=== PATIENT | female | born 1930 | race Hispanic/Latino ===

== ENCOUNTER 2017-01-20 13:49 | Inpatient (IN) | payer MEDICARE, MEDICAID ==
--- NOTE | 2017-01-20 14:44 | ED PDOC ---
HPI:STROKE - Time Time: 14:25 - Historian Historian: Patient, Family (daughter/ homemaker), EMS - Onset Date: 01/20/17 Time: 11:00 - Timing Timing: Resolved - Location Location: Speech - Exacerbated by Exacerbated by:: Nothing - Relieved by Relieved by:: Nothing - TPA Positive for Contraindication: Yes Reason tPA is not being Administered: resolution of symptoms - Notes: Notes:: 86yo female arrives via EMS, per EMS homemaker called 911 when patient had some difficulty speaking around 11am, and states had general feelings of being unwell. They deny facial droop, unilateral weakness, fall, syncope, vomiting, diarrhea or fever. In ED awake, alert without complaints. NIHSS Stroke Scale - Date/Time Evaluation Performed Date Performed: 01/20/17 Time Performed: 14:01 When Was NIHSS Performed: Baseline - How Severe is the Stroke Level of Consciousness: 0=Alert LOC to Questions: 0=Both comments correct LOC to commands: 0=Obeys both correctly Best Gaze: 0=Normal Visual: 0=No visual loss Facial: 0=Normal Motor Arm - Left: 0=No drift Motor Arm - Right: 0=No drift Motor Leg - Left: 0=No drift Motor Leg - Right: 0=No drift Limb Ataxia: 1=Present Upper or Lower Sensory: 0=Normal Best Language: 0=No aphasia Dysarthia: 1=Mild to moderate slurring Extinction & Inattention (Neglect): 0=Normal, no object Score: 2 rTPA Inclusion/Exclusion - Refusal of Treatment Patient Refused Treatment: No - Inclusion Criteria for Altepase Patient is 18 years or Older: Yes The Clinical Diagnosis of Ischemic Stroke That is Causing a Potentially Disabling Neurological Deficit: Yes Time of Onset is Well Established to be Less Than 270 Minute Before Treatment Would Begin: No Risk/Benefit Discussed With Patient/Family Member Present: Yes - Exclusion Criteria for Altepase Uncontrolled Hypertension at Time of Treatment (Systolic BP above 185 or Diastolic BP above 110 mmHg): No - Warning to TPA With Conditions Following Conditions Weighed Against Anticipated Benefit: Yes Condition: Stroke Serevity Too Mild Past Medical History Reviewed: Historical Data, Nursing Documentation, Vital Signs Vital Signs: Last Vital Signs Temp 98.7 F 01/20/17 13:51 Pulse 84 01/20/17 13:51 Resp 18 01/20/17 13:51 BP 166/95 H 01/20/17 13:51 Pulse Ox 99 01/20/17 13:51 - Medical History PMH: Anxiety, Asthma, CAD, CHF, Depression, HTN, Hypercholesterolemia - Family History Family History: States: Unknown Family Hx - Living Arrangements Living Arrangements: With Family - Social History Current smoker - smoking cessation education provided: No - Home Medications Home Medications: Ambulatory Orders Medication Instructions Recorded Alendronate [Fosamax] 70 mg PO QWK 01/20/17 Carvedilol [Coreg] 3.125 mg PO Q12H 01/20/17 Docusate [Colace] 100 mg PO BID 01/20/17 Enalapril Maleate [Vasotec] 20 mg PO DAILY 01/20/17 Ferrous Sulfate [Ferosul] 325 mg PO TID 01/20/17 LORazepam [Ativan] 0.5 mg PO DAILY 01/20/17 Montelukast [Singulair] 10 mg PO DAILY 01/20/17 Multivitamin [Multi-Vitamin Daily] 1 tab PO DAILY 01/20/17 Omeprazole [Omeprazole] 20 mg PO BID 01/20/17 PARoxetine [Paxil] 20 mg PO DAILY 01/20/17 Simethicone [Mylicon Chew Tab] 80 mg PO TID 01/20/17 metFORMIN [glucOPHAGE] 500 mg PO BID 01/20/17 - Allergies Allergies/Adverse Reactions: Allergies Allergy/AdvReac Type Severity Reaction Status Date / Time No Known Allergies Allergy Verified 01/16/15 03:07 Review of Systems ROS Statement: Except As Marked, All Systems Reviewed And Found Negative Constitutional: Positive for: Weakness. Negative for: Fever, Chills Cardiovascular: Positive for: Light Headedness. Negative for: Chest Pain, Palpitations Gastrointestinal: Negative for: Nausea, Vomiting Genitourinary Female: Negative for: Dysuria, Frequency Musculoskeletal: Negative for: Neck Pain, Shoulder Pain Skin: Negative for: Rash, Lesions, Jaundice Neurological: Positive for: Headache, Dizziness. Negative for: Weakness, Numbness Psych: Positive for: Anxiety Physical Exam - Reviewed Nursing Documentation Reviewed: Yes Vital Signs Reviewed: Yes - Physical Exam Appears: Positive for: Non-toxic (awake, alert, communicative w periods confusion'), No Acute Distress Head Exam: Positive for: ATRAUMATIC, NORMAL INSPECTION, NORMOCEPHALIC Skin: Positive for: Normal Color, Warm, DRY Eye Exam: Positive for: EOMI, Normal appearance, PERRL ENT: Positive for: Normal ENT Inspection, Other (poor dentition) Neck: Positive for: Normal, Painless ROM, Trachea Midline Cardiovascular/Chest: Positive for: Regular Rate, Rhythm Respiratory: Positive for: CNT, Normal Breath Sounds Gastrointestinal/Abdominal: Positive for: Bowel Sounds, Soft. Negative for: Tenderness, Guarding Back: Positive for: Normal Inspection Extremity: Positive for: Normal ROM Neurologic/Psych: Positive for: Alert, level vial sealer II-XII, Oriented, Other (strength 5/ 5 all ext. Speech fluent with mild dysarthria- unclear if new. ). Negative for : Motor/Sensory Deficits - Laboratory Results Result Diagrams: 01/20/17 14:35 01/20/17 14:35 - ECG O2 Sat by Pulse Oximetry: 99 Medical Decision Making Medical Decision Making: Unclear etiology of symptoms as patient and homemaker are poor historians. PMD Dr Patel Workup for cerebral ischemia initiated. Not code-stroke candidate as symptoms resolved prior to hospital presentation and unclear if symptoms were cerebral ischemia given poor historical context. Disposition - Clinical Impression Clinical Impression: TIA (transient ischemic attack) - Patient ED Disposition Is Patient to be Admitted: Yes - Disposition Disposition Time: 15:45 Condition: FAIR - Pt Status Changed To: Hospital Disposition Of: Observation - POA Present On Arrival: None
[2017-01-20 15:02] LABS: BASO # 0.1 K/uL (0.0-0.2); BASO % 0.7 % (0.0-2.0); EOS # 0.2 K/uL (0.0-0.7); EOS % 2.4 % (0.0-4.0); HEMOGLOBIN 13.8 g/dL (12.0-16.0); LYMPH # 2.1 K/uL (1.0-4.3); LYMPH % 23.5 % (20.0-40.0); MEAN CELL VOLUME 95.9 fl (81.0-99.0); MEAN CORPUSCULAR HEMOGLOBIN 32.6 pg (27.0-31.0); MEAN PLATELET VOLUME 7.9 fl (7.2-11.7); MONO # 0.5 K/uL (0.0-0.8); MONO % 5.2 % (0.0-10.0); NEUT % 68.2 % (50.0-75.0); RBC 4.23 Mil/uL (3.80-5.20); RED CELL DISTRIBUTION WIDTH 14.6 % (11.5-14.5); WHITE BLOOD COUNT 8.8 K/uL (4.8-10.8)
[2017-01-20 15:10] LABS: ALB/GLOB RATIO 1.3 (1.0-2.1); ALBUMIN 4.5 g/dL (3.5-5.0); ALT/SGPT 33 U/L (9-52); AST/SGOT 40 U/L (14-36); BLOOD UREA NITROGEN 17 mg/dl (7-17); CALCIUM 9.6 mg/dL (8.4-10.2); GFR AFRICAN-AMERICAN > 60; GFR NON-AFRICAN AMERICAN > 60; HDL CHOLESTEROL 48 MG/DL (30-70)
[2017-01-20 15:21] LABS: LDL CHOLESTEROL 130 mg/dL (0-129)
[2017-01-20 15:28] LABS: INR 0.9 (0.9-1.2); PARTIAL THROMBOPLASTIN TIME 40.4 Seconds (25.6-37.1); PROTHROMBIN TIME 10.6 Seconds (9.8-13.1)
[2017-01-20 15:56] LABS: SQUAMOUS EPITHIAL 1 /hpf (0-5); URINE BILIRUBIN NEGATIVE (NEGATIVE); URINE BLOOD NEGATIVE (NEGATIVE); URINE CLARITY CLEAR (Clear); URINE COLOR YELLOW (YELLOW); URINE GLUCOSE (UA) NEG (Normal); URINE LEUKOCYTE ESTERASE SMALL Leu/uL (Negative); URINE NITRATE NEGATIVE (NEGATIVE); URINE PROTEIN NEGATIVE (NEGATIVE); URINE UROBILINOGEN 0.2-1.0 mg/dL (0.2-1.0)
--- NOTE | 2017-01-20 16:22 | CT ---
PROCEDURE: CT HEAD WITHOUT CONTRAST. HISTORY: trouble speaking, now resolved COMPARISON: 02/28/2015. TECHNIQUE: Axial computed tomography images were obtained through the head/brain without intravenous contrast. Radiation dose: Total exam DLP = 866.94 mGy-cm. This CT exam was performed using one or more of the following dose reduction techniques: Automated exposure control, adjustment of the mA and/or kV according to patient size, and/or use of iterative reconstruction technique. FINDINGS: HEMORRHAGE: No intracranial hemorrhage. BRAIN: No mass effect or edema. Cortical atrophy, periventricular small vessel disease VENTRICLES: Unremarkable. No hydrocephalus. CALVARIUM: Unremarkable. PARANASAL SINUSES: Unremarkable as visualized. No significant inflammatory changes. MASTOID AIR CELLS: Unremarkable as visualized. No inflammatory changes. OTHER FINDINGS: None. IMPRESSION: No acute findings related to/accounting for the clinical presentation. No significant interval change compared to the prior examination(s).
--- NOTE | 2017-01-20 17:04 | RAD ---
HISTORY: weakness COMPARISON: 02/28/2015. FINDINGS: LUNGS: No active pulmonary disease. PLEURA: No significant pleural effusion identified, no pneumothorax apparent. CARDIOVASCULAR: No radiographic findings to suggest acute or significant cardiovascular disease. OSSEOUS STRUCTURES: Severe posttraumatic degenerative changes common deformities affecting right shoulder. VISUALIZED UPPER ABDOMEN: Normal. OTHER FINDINGS: None. IMPRESSION: No active disease. No significant interval change compared to the prior examination(s).
--- NOTE | 2017-01-20 20:41 | CARD ---
APPROVED REPORT EKG Measurement Heart [id number] <Conclusion> Sinus rhythm with premature atrial complexes Nonspecific ST and T wave abnormality Prolonged QT Abnormal ECG
[2017-01-20] MEDS ORDERED: Albuterol 0.083% Inhal Sol (2.5 mg/3 mL) UD INH ONE (20:51)
--- NOTE | 2017-01-20 20:58 | CP.PCM.HP ---
History of Present Illness - History of Present Illness History of Present Illness: 86 yo with hx of NIDDM HTN Hypercholst COPD admitted for questionable slurring of speech. Pt has long hx of chronic anxiety Present on Admission - Present on Admission Any Indicators Present on Admission: No Past Patient History - Past Medical History & Family History Past Medical History?: Yes - Past Social History Smoking Status: Former Smoker - CARDIAC Hx Cardiac Disorders: Yes Hx Angina: No Hx Atrial Fibrillation: No Hx Cardia Arrhythmia: No Hx Circulatory Problems: No Hx Congestive Heart Failure: No Hx Heart Attack: No Hx Heart Murmur: No Hx Heart Transplant: No Hx Hypercholesterolemia: Yes Hx Hypertension: Yes Hx Hypotension: No Hx Internal Defibrillator: No Hx Mitral Valve Prolapse: No Hx Pacemaker: No Hx Peripheral Edema: No Hx Peripheral Vascular Disease: No - PULMONARY Hx Respiratory Disorders: Yes Hx Asthma: No (uses nebulizer) Hx Bronchitis: No Hx Chronic Obstructive Pulmonary Disease (COPD): Yes Hx Emphysema: No Hx Lung Cancer: No Hx Pneumonia: No Hx Pulmonary Edema: No Hx Pulmonary Embolism: No Hx Respiratory Aspiration: No Hx Respiratory Tract Infection: No Hx Sleep Apnea: No Hx Tuberculosis: No - NEUROLOGICAL Hx Neurological Disorder: Yes Hx Alzheimer's Disease: No HX Cerebrovascular Accident: No Hx Dementia: No Hx Dizziness: Yes (occasionally) Hx Meningitis: No Hx Migraine: No Hx Multiple Sclerosis: No Hx Paralysis: No Hx Parkinson's Disease: No Hx Seizures: No Hx Syncope: No Hx Transient Ischemic Attacks (TIA): No Hx Vertigo: No - HEENT Hx HEENT Problems: No Hx Blind: No Hx Cataracts: No Hx Deafness: No Hx Difficulty Chewing: No Hx Epistaxis: No Hx Glaucoma: No Hx Macular Degeneration: No Hx Sinusitis: No - RENAL Hx Chronic Kidney Disease: No Hx Dialysis: No Hx Kidney Stones: No Hx Neurogenic Bladder: No Hx Pyelonephritis: No Hx Renal (Kidney) Cancer: No Hx Renal Failure: No - ENDOCRINE/METABOLIC Hx Endocrine Disorders: Yes Hx Adrenal Cancer: No Hx Diabetes Insipidus: No Hx Diabetes Mellitus Type 1: No Hx Diabetes Mellitus Type 2: Yes Hx Hyperthyroidism: No Hx Hypothyroidism: No Hx Systemic Lupus Erythematosus: No - HEMATOLOGICAL/ONCOLOGICAL Hx Blood Disorders: No Hx AIDS: No Hx Anemia: No Hx Blood Transfusions: No Hx Blood Transfusion Reaction: No Hx Bruising: No Hx Cancer: No Hx Chemotherapy: No Hx Cirrhosis: No Hx Gum Bleeding: No Hx Hemophilia: No Hx Hepatitis A: No Hx Hepatitis B: No Hx Hepatitis C: No Hx Human Immunodeficiency Virus (HIV): No Hx Leukemia: No Hx Metastesis: No Hx Shingles: No Hx Sickle Cell Disease: No Hx Unexplained Bleeding: No Hx von Willebrand's Disease: No - INTEGUMENTARY Hx Dermatological Problems: No Hx Basil Cell: No Hx De La Cruz: No Hx Cellulitis: No Hx Eczema: No Hx Melanoma: No Hx Psoriasis: No Hx Squamous Cell: No - MUSCULOSKELETAL/RHEUMATOLOGICAL Hx Musculoskeletal Disorders: No Hx Arthritis: No Hx Back Pain: No Hx Degenerative Joint Disease: No Hx Falls: Yes (2 broken hips, broken arm and ankle) Hx Fractures: Yes Hx Gout: No Hx Herniated Disk: No Hx Myasthenia Gravis: No Hx Osteoarthritis: No Hx Osteomyelitis: No Hx Osteoporosis: No Hx Rhabdomyolysis: No Hx Rheumatoid Arthritis: No Hx Spinal Stenosis: No Hx Unsteady Gait: Yes - GASTROINTESTINAL Hx Gastrointestinal Disorders: Yes Hx Bowel Surgery: No Hx Clostridium Difficile: No Hx Colitis: No Hx Colostomy: No Hx Constipation: No Hx Crohn's Disease: No Hx Diarrhea: No Hx Diverticulitis: No Hx Esophageal Varices: No Hx Fatty Liver Disease: No Hx Gall Bladder Disease: No Hx Gastritis: No Hx Gastroesophageal Reflux: No Hx Hemorrhoids: No Hx Ileostomy: No Hx Irritable Bowel: No Hx Liver Failure: No Hx Nausea: No Hx Pancreatitis: No HX Swallowing Problems: No Hx Ulcer: No Hx Vomiting: No Other/Comment: rectal prolapse surgery 1 year ago - GENITOURINARY/GYNECOLOGICAL Hx Genitourinary Disorders: No Hx Bladder Cancer: No Hx Bladder Stone: No Hx Cervical Cancer: No Hx Hematuria: No Hx Incontinence: No Hx Ovarian Cancer: No Hx Postmenopausal Bleeding: No Hx Reproductive Disorders: No Hx Sexually Transmitted Disorders: No Hx Uterine Cancer: No Hx Urinary Tract Infection: No - PSYCHIATRIC Hx Psychophysiologic Disorder: Yes Hx Anxiety: Yes Hx Bipolar Disorder: No Hx Depression: Yes Hx Emotional Abuse: No Hx Hallucinations: No Hx Panic Symptoms: Yes Hx Paranoia: Yes Hx Post Traumatic Stress Disorder: No Hx Psychosis: No Hx Physical Abuse: No Hx Schizophrenia: No Hx Sexual Abuse: No Hx Substance Use: No - SURGICAL HISTORY Hx Surgeries: Yes Hx Abdominal Aortic Aneurysm Repair: No Hx Amputation: No Hx Angiogram: No Hx Angioplasty: No Hx Appendectomy: No Hx Arteriovenous Shunt: No Hx Arthroscopy: No Hx Bile Duct Stent: No Hx Breast Biopsy: No Hx Cataract Extraction: No Hx Cardiac Catheterization: No Hx Carotid Endarterectomy: No Hx Section: No Hx Cholecystectomy: No Hx Coronary Artery Bypass Graft: No Hx Coronary Stent: No Hx Dilation and Curettage: No Hx Eye Surgery: No Hx Femoral-Popliteal Bypass Graft: No Hx Gastric Bypass Surgery: No Hx Herniorrhaphy: No Hx Hysterectomy: No Hx Joint Replacement: No Hx Kidney Transplant: No Hx Liver Transplant: No Hx Mastectomy: No Hx Musculoskeletal Surgery: No Hx Open Heart Surgery: No Hx Open Reduction Internal Fixation: No Hx Orthopedic Surgery: No Hx Parathyroidectomy: No Hx Penile Implant: No Hx Pulmonary Surgery: No Hx Splenectomy: No Hx Thyroidectomy: No Hx Tonsillectomy: No Hx Tubal Ligation: No Hx Valve Replacement: No Hx Vascular Surgery: No Hx Vascular Access Device: No Other/Comment: shoulder and knee sx - ANESTHESIA Hx Anesthesia: Yes Hx Anesthesia Reactions: No Hx Malignant Hyperthermia: No Has any member of the family had a problem w/ anesthesia?: No Meds Allergies/Adverse Reactions: Allergies Allergy/AdvReac Type Severity Reaction Status Date / Time No Known Allergies Allergy Verified 01/16/15 03:07 Physical Exam - Respiratory Exam Respiratory Exam: NORMAL BREATHING PATTERN - Cardiovascular Exam Cardiovascular Exam: REGULAR RHYTHM - GI/Abdominal Exam GI & Abdominal Exam: Normal Bowel Sounds Results - Vital Signs Recent Vital Signs: Last Vital Signs Temp 97.7 F 01/20/17 19:34 Pulse 86 01/20/17 19:34 Resp 18 01/20/17 19:34 BP 160/88 H 01/20/17 19:34 Pulse Ox 99 01/20/17 19:34 - Labs Result Diagrams: 01/20/17 14:35 01/20/17 14:35 Assessment & Plan - Assessment and Plan (Free Text) Assessment: TIA?? Speech?? NIDDM HTN Hypercholest Admit to telemetry Cardiology and Neurology COPD Prov Atrovent Hx of chronic anxiety - Date & Time Date: 01/20/17 Time: 22:22
[2017-01-20] MEDS ORDERED: Simethicone 80 mg Chewtab PO PRN (21:34)
[2017-01-21 07:07] LABS: IRON 80 ug/dL (37-170)
[2017-01-21 07:27] LABS: TOTAL IRON BINDING CAPACITY 278 ug/dL (250-450)
[2017-01-21 07:29] LABS: % IRON SATURATION 29 % (20-55)
[2017-01-21] MEDS: Multivitamin With Minerals Tab PO SCH (09:00)
[2017-01-21] MEDS ORDERED: Patient's Own Med (Multivitamin [Multi-Vitamin Daily] 1 TAB) PO SCH (09:00)
[2017-01-21] MEDS: Pantoprazole 40 mg EC Tab PO SCH (09:00)
--- NOTE | 2017-01-21 14:53 | CP.PCM.CON ---
History of Present Illness - History of Present Illness History of Present Illness: Mrs. Harris is an 86-year-old woman with a past medical history of HTN, DM and anxiety who states that yesterday, she developed an episode of speech difficultly that lasted for about 1-2 hours and then resolved spontaneously. She describes it as an episode during which she was mumbling and was not able to say the right words that she was thinking of. Her daughter noticed the slurred speech and told her that it will "go away". There were no facial droop , weakness, or sensory changes noted. She denied headache, nausea, visual changes, weakness or other associated symptoms. Review of Systems - Review of Systems All systems: reviewed and no additional remarkable complaints except Past Patient History - Past Medical History & Family History Past Medical History?: Yes - Past Social History Smoking Status: Former Smoker - CARDIAC Hx Cardiac Disorders: Yes Hx Angina: No Hx Atrial Fibrillation: No Hx Cardia Arrhythmia: No Hx Circulatory Problems: No Hx Congestive Heart Failure: No Hx Heart Attack: No Hx Heart Murmur: No Hx Heart Transplant: No Hx Hypercholesterolemia: Yes Hx Hypertension: Yes Hx Hypotension: No Hx Internal Defibrillator: No Hx Mitral Valve Prolapse: No Hx Pacemaker: No Hx Peripheral Edema: No Hx Peripheral Vascular Disease: No - PULMONARY Hx Respiratory Disorders: Yes Hx Asthma: No (uses nebulizer) Hx Bronchitis: No Hx Chronic Obstructive Pulmonary Disease (COPD): Yes Hx Emphysema: No Hx Lung Cancer: No Hx Pneumonia: No Hx Pulmonary Edema: No Hx Pulmonary Embolism: No Hx Respiratory Aspiration: No Hx Respiratory Tract Infection: No Hx Sleep Apnea: No Hx Tuberculosis: No - NEUROLOGICAL Hx Neurological Disorder: Yes Hx Alzheimer's Disease: No HX Cerebrovascular Accident: No Hx Dementia: No Hx Dizziness: Yes (occasionally) Hx Meningitis: No Hx Migraine: No Hx Multiple Sclerosis: No Hx Paralysis: No Hx Parkinson's Disease: No Hx Seizures: No Hx Syncope: No Hx Transient Ischemic Attacks (TIA): No Hx Vertigo: No - HEENT Hx HEENT Problems: No Hx Blind: No Hx Cataracts: No Hx Deafness: No Hx Difficulty Chewing: No Hx Epistaxis: No Hx Glaucoma: No Hx Macular Degeneration: No Hx Sinusitis: No - RENAL Hx Chronic Kidney Disease: No Hx Dialysis: No Hx Kidney Stones: No Hx Neurogenic Bladder: No Hx Pyelonephritis: No Hx Renal (Kidney) Cancer: No Hx Renal Failure: No - ENDOCRINE/METABOLIC Hx Endocrine Disorders: Yes Hx Adrenal Cancer: No Hx Diabetes Insipidus: No Hx Diabetes Mellitus Type 1: No Hx Diabetes Mellitus Type 2: Yes Hx Hyperthyroidism: No Hx Hypothyroidism: No Hx Systemic Lupus Erythematosus: No - HEMATOLOGICAL/ONCOLOGICAL Hx Blood Disorders: No Hx AIDS: No Hx Anemia: No Hx Blood Transfusions: No Hx Blood Transfusion Reaction: No Hx Bruising: No Hx Cancer: No Hx Chemotherapy: No Hx Cirrhosis: No Hx Gum Bleeding: No Hx Hemophilia: No Hx Hepatitis A: No Hx Hepatitis B: No Hx Hepatitis C: No Hx Human Immunodeficiency Virus (HIV): No Hx Leukemia: No Hx Metastesis: No Hx Shingles: No Hx Sickle Cell Disease: No Hx Unexplained Bleeding: No Hx von Willebrand's Disease: No - INTEGUMENTARY Hx Dermatological Problems: No Hx Basil Cell: No Hx De La Cruz: No Hx Cellulitis: No Hx Eczema: No Hx Melanoma: No Hx Psoriasis: No Hx Squamous Cell: No - MUSCULOSKELETAL/RHEUMATOLOGICAL Hx Musculoskeletal Disorders: No Hx Arthritis: No Hx Back Pain: No Hx Degenerative Joint Disease: No Hx Falls: Yes (2 broken hips, broken arm and ankle) Hx Fractures: Yes Hx Gout: No Hx Herniated Disk: No Hx Myasthenia Gravis: No Hx Osteoarthritis: No Hx Osteomyelitis: No Hx Osteoporosis: No Hx Rhabdomyolysis: No Hx Rheumatoid Arthritis: No Hx Spinal Stenosis: No Hx Unsteady Gait: Yes - GASTROINTESTINAL Hx Gastrointestinal Disorders: Yes Hx Bowel Surgery: No Hx Clostridium Difficile: No Hx Colitis: No Hx Colostomy: No Hx Constipation: No Hx Crohn's Disease: No Hx Diarrhea: No Hx Diverticulitis: No Hx Esophageal Varices: No Hx Fatty Liver Disease: No Hx Gall Bladder Disease: No Hx Gastritis: No Hx Gastroesophageal Reflux: No Hx Hemorrhoids: No Hx Ileostomy: No Hx Irritable Bowel: No Hx Liver Failure: No Hx Nausea: No Hx Pancreatitis: No HX Swallowing Problems: No Hx Ulcer: No Hx Vomiting: No Other/Comment: rectal prolapse surgery 1 year ago - GENITOURINARY/GYNECOLOGICAL Hx Genitourinary Disorders: No Hx Bladder Cancer: No Hx Bladder Stone: No Hx Cervical Cancer: No Hx Hematuria: No Hx Incontinence: No Hx Ovarian Cancer: No Hx Postmenopausal Bleeding: No Hx Reproductive Disorders: No Hx Sexually Transmitted Disorders: No Hx Uterine Cancer: No Hx Urinary Tract Infection: No - PSYCHIATRIC Hx Psychophysiologic Disorder: Yes Hx Anxiety: Yes Hx Bipolar Disorder: No Hx Depression: Yes Hx Emotional Abuse: No Hx Hallucinations: No Hx Panic Symptoms: Yes Hx Paranoia: Yes Hx Post Traumatic Stress Disorder: No Hx Psychosis: No Hx Physical Abuse: No Hx Schizophrenia: No Hx Sexual Abuse: No Hx Substance Use: No - SURGICAL HISTORY Hx Surgeries: Yes Hx Abdominal Aortic Aneurysm Repair: No Hx Amputation: No Hx Angiogram: No Hx Angioplasty: No Hx Appendectomy: No Hx Arteriovenous Shunt: No Hx Arthroscopy: No Hx Bile Duct Stent: No Hx Breast Biopsy: No Hx Cataract Extraction: No Hx Cardiac Catheterization: No Hx Carotid Endarterectomy: No Hx Section: No Hx Cholecystectomy: No Hx Coronary Artery Bypass Graft: No Hx Coronary Stent: No Hx Dilation and Curettage: No Hx Eye Surgery: No Hx Femoral-Popliteal Bypass Graft: No Hx Gastric Bypass Surgery: No Hx Herniorrhaphy: No Hx Hysterectomy: No Hx Joint Replacement: No Hx Kidney Transplant: No Hx Liver Transplant: No Hx Mastectomy: No Hx Musculoskeletal Surgery: No Hx Open Heart Surgery: No Hx Open Reduction Internal Fixation: No Hx Orthopedic Surgery: No Hx Parathyroidectomy: No Hx Penile Implant: No Hx Pulmonary Surgery: No Hx Splenectomy: No Hx Thyroidectomy: No Hx Tonsillectomy: No Hx Tubal Ligation: No Hx Valve Replacement: No Hx Vascular Surgery: No Hx Vascular Access Device: No Other/Comment: shoulder and knee sx - ANESTHESIA Hx Anesthesia: Yes Hx Anesthesia Reactions: No Hx Malignant Hyperthermia: No Has any member of the family had a problem w/ anesthesia?: No Meds Allergies/Adverse Reactions: Allergies Allergy/AdvReac Type Severity Reaction Status Date / Time No Known Allergies Allergy Verified 01/16/15 03:07 - Medications Medications: Current Medications Alendronate Sodium (Fosamax) 70 mg PO QWK [facility] Aspirin (Aspirin Chewable) 81 mg PO DAILY [facility] Last Admin: 01/21/17 08:59 Dose: 81 mg Carvedilol (Coreg) 3.125 mg PO Q12H [facility] Last Admin: 01/21/17 09:00 Dose: 3.125 mg Docusate Sodium (Colace) 100 mg PO BID [facility] Last Admin: 01/21/17 08:59 Dose: 100 mg Enalapril Maleate (Vasotec) 20 mg PO DAILY [facility] Last Admin: 01/21/17 09:00 Dose: 20 mg Lorazepam (Ativan) 0.5 mg PO DAILY PRN PRN Reason: Anxiety Last Admin: 01/20/17 22:50 Dose: 0.5 mg Metformin HCl (Glucophage) 500 mg PO BID [facility] Last Admin: 01/21/17 09:00 Dose: 500 mg Montelukast Sodium (Singulair) 10 mg PO DAILY [facility] Last Admin: 01/21/17 09:00 Dose: 10 mg Multivitamins/Minerals (Therapeutic-M Tab) 1 tab PO DAILY [facility] Last Admin: 01/21/17 09:00 Dose: 1 tab Pantoprazole Sodium (Protonix Ec Tab) 40 mg PO DAILY [facility] Last Admin: 01/21/17 09:00 Dose: 40 mg Paroxetine HCl (Paxil) 20 mg PO DAILY [facility] Last Admin: 01/21/17 09:00 Dose: 20 mg Simethicone (Mylicon Chew Tab) 80 mg PO TID PRN PRN Reason: Flatulence Physical Exam - Constitutional Appears: Well - Head Exam Head Exam: ATRAUMATIC Additional comments: poor dentition - Eye Exam Eye Exam: EOMI, Normal appearance, PERRL - ENT Exam ENT Exam: Mucous Membranes Moist Additional comments: missing several teeth and appear to be in poor health - Neck Exam Neck exam: Positive for: Normal Inspection - Respiratory Exam Respiratory Exam: Clear to Auscultation Bilateral, NORMAL BREATHING PATTERN - Cardiovascular Exam Cardiovascular Exam: REGULAR RHYTHM, +S1, +S2 - GI/Abdominal Exam GI & Abdominal Exam: Normal Bowel Sounds, Soft. absent: Tenderness - Rectal Exam Rectal Exam: Deferred - Extremities Exam Extremities exam: Positive for: normal inspection - Back Exam Back exam: NORMAL INSPECTION - Neurological Exam Neurological exam: Alert, CN II-XII Intact, Normal Gait, Oriented x3, Reflexes Normal - Expanded Neurological Exam Expanded Patient oriented to: person, place, time Cranial nerves: EOM's Intact: Normal, Facial Palsey w/Forehead Movement: Normal , Facial Sensation: Normal Ataxia: No Cerebellar Function: Finger to Nose: Normal, Heel to Zhang: Normal Upper motor neuron: Babinski Sign: Normal Sensory exam: Lower Extremity Light Touch: Normal, Lower Extremity Pin Prick: Normal, Upper Extremity Light Touch: Normal, Upper Extremity Pin Prick: Normal Neuro motor strength exam: Left Upper Extremity: 4, Right Upper Extremity: 4, Left Lower Extremity: 4, Right Lower Extremity: 4 DTR: Achilles Tendon Left: 2+, Achilles Tendon Right: 2+, Bicep Left: 2+, Bicep Right: 2+, Brachioradialis Left: 2+, Brachioradialis Right: 2+, Patellar Left: 2 +, Patellar Right: 2+, Tricep Left: 2+, Tricep Right: 2+ - Psychiatric Exam Psychiatric exam: Normal Affect, Normal Mood - Skin Skin Exam: Dry, Intact, Normal Color, Warm Results - Vital Signs Recent Vital Signs: Last Vital Signs Temp 98.2 F 01/21/17 12:28 Pulse 72 01/21/17 12:28 Resp 18 01/21/17 12:28 BP 145/73 01/21/17 12:28 Pulse Ox 96 01/21/17 12:28 - Labs Result Diagrams: 01/20/17 14:35 01/20/17 14:35 Labs: Laboratory Results - last 24 hr 01/20/17 01/21/17 01/21/17 21:33 05:40 05:40 POC Glucose (mg/dL) 114 H Iron 80 TIBC 278 % Saturation 29 Troponin I 0.0770 01/21/17 01/21/17 01/21/17 05:44 11:07 12:02 POC Glucose (mg/dL) 101 198 H Iron TIBC % Saturation Troponin I 0.0430 - Imaging and Cardiology CT scan - head Status: Image reviewed by me, Report reviewed by me (no acute findings.) Assessment & Plan (1) TIA (transient ischemic attack) Assessment and Plan: The patient's episode is consistent with a TIA. She is left handed, so the location could be right cerebral hemisphere. The patient was taking aspirin in the past, but has not taken it in several months. I recommend the followin. Telemetry 2. MRI of the brain without contrast 3. Echocardiogram 4. Carotid doppler 5. Aspirin 81 mg daily 6. Statin for LDL> 100 mg/dL 7. Obtain lipid panel, HbA1c, TSH, B12 8. Treat underlying infections (UTI) 9. DVT Px 10. PT/OT eval Thank you. Status: Acute Priority: High
--- NOTE | 2017-01-21 19:29 | CARD ---
APPROVED REPORT EKG Measurement Heart [id number] <Conclusion> Sinus rhythm with premature atrial complexes Nonspecific ST and T wave abnormality Prolonged QT Abnormal ECG
--- NOTE | 2017-01-21 20:59 | CP.PCM.PN ---
Subjective - Date & Time of Evaluation Date of Evaluation: 01/21/17 Time of Evaluation: 22:22 - Subjective Subjective: Neuro consult appreciated Objective - Vital Signs/Intake and Output Vital Signs (last 24 hours): Temp Pulse Resp BP Pulse Ox 99 F 71 16 148/70 95 01/21/17 19:57 01/21/17 19:57 01/21/17 19:57 01/21/17 19:57 01/21/17 19:57 - Medications Medications: Current Medications Alendronate Sodium (Fosamax) 70 mg PO QWK [facility] Aspirin (Aspirin Chewable) 81 mg PO DAILY [facility] Last Admin: 01/21/17 08:59 Dose: 81 mg Carvedilol (Coreg) 3.125 mg PO Q12H [facility] Last Admin: 01/21/17 09:00 Dose: 3.125 mg Docusate Sodium (Colace) 100 mg PO BID [facility] Last Admin: 01/21/17 16:46 Dose: 100 mg Enalapril Maleate (Vasotec) 20 mg PO DAILY [facility] Last Admin: 01/21/17 09:00 Dose: 20 mg Lorazepam (Ativan) 0.5 mg PO DAILY PRN PRN Reason: Anxiety Last Admin: 01/20/17 22:50 Dose: 0.5 mg Metformin HCl (Glucophage) 500 mg PO BID [facility] Last Admin: 01/21/17 16:46 Dose: Not Given Montelukast Sodium (Singulair) 10 mg PO DAILY [facility] Last Admin: 01/21/17 09:00 Dose: 10 mg Multivitamins/Minerals (Therapeutic-M Tab) 1 tab PO DAILY [facility] Last Admin: 01/21/17 09:00 Dose: 1 tab Pantoprazole Sodium (Protonix Ec Tab) 40 mg PO DAILY [facility] Last Admin: 01/21/17 09:00 Dose: 40 mg Paroxetine HCl (Paxil) 20 mg PO DAILY [facility] Last Admin: 01/21/17 09:00 Dose: 20 mg Simethicone (Mylicon Chew Tab) 80 mg PO TID PRN PRN Reason: Flatulence - Labs Labs: PT 10.6 Seconds (9.8-13.1) 01/20/17 14:31 INR 0.9 (0.9-1.2) 01/20/17 14:31 APTT 40.4 Seconds (25.6-37.1) H 01/20/17 14:31 - Respiratory Exam Respiratory Exam: NORMAL BREATHING PATTERN - Cardiovascular Exam Cardiovascular Exam: REGULAR RHYTHM - GI/Abdominal Exam GI & Abdominal Exam: Normal Bowel Sounds Assessment and Plan - Assessment and Plan (Free Text) Assessment: TIA?? Speech?? NIDDM HTN Hypercholest Admit to telemetry Cardiology and Neurology W/U in process COPD Prov Atrovent Hx of chronic anxiety Ativan
--- NOTE | 2017-01-22 08:20 | US ---
PROCEDURE: Carotid vertebral duplex sonography HISTORY: TIA COMPARISON: None available. TECHNIQUE: Grayscale, color Doppler and spectral Doppler assessment of the carotid system bilaterally. This includes common carotid, internal carotid arteries Vertebral artery assessment with respect to direction of flow (antegrade or retrograde) FINDINGS: RIGHT carotid system: Assessment of plaque: Heterogeneous plaque formation. Peak systolic ICA velocity: Seventy cm/sec End-diastolic velocity: 18 cm/sec ICA/CCA ratio: 1.8 Vertebral artery flow: Antegrade LEFT carotid system: Assessment of plaque: Heterogeneous plaque formation. Peak systolic ICA velocity: 99 cm/sec End-diastolic velocity: 20 cm/sec ICA/CCA ratio: 1.6 Vertebral artery flow: Antegrade IMPRESSION: Right ICA degree of stenosis: Less than 50% Left ICA degree of stenosis: Less than 50% Reference Internal Carotid Artery (ICA) Peak Systolic Velocity (PSV) for above: 1. Less than 50% stenosis less than 125 cm/s peak systolic velocity 2. 50-69% stenosis 125-230cm/s peak systolic velocity 3. Greater than 70% but less than near occlusion greater than 230 cm/s peak systolic velocity
[2017-01-22] MEDS: Pantoprazole 40 mg EC Tab PO SCH (09:26)
[2017-01-22] MEDS: Multivitamin With Minerals Tab PO SCH (09:26)
--- NOTE | 2017-01-22 13:22 | CARD ---
APPROVED REPORT EXAM: Two-dimensional and M-mode echocardiogram with Doppler and color Doppler. Other Information Quality : GoodRhythm : NSR INDICATION CVA/TIA 2D DIMENSIONS IVSd0.68 (0.7-1.1cm)LVDd4.08 (3.9-5.9cm) LVOT Diameter1.89 (1.8-2.4cm)PWd0.98 (0.7-1.1cm) IVSs1.16 (0.8-1.2cm)LVDs3.09 (2.5-4.0cm) FS (%) 24.1 %PWs0.98 (0.8-1.2cm) LVEF (%)65.0 (>50%) M-Mode DIMENSIONS Left Atrium (MM)4.04 (2.5-4.0cm)IVSd1.03 (0.7-1.1cm) Aortic Root2.42 (2.2-3.7cm)LVDd3.22 (4.0-5.6cm) Aortic Cusp Exc.1.42 (1.5-2.0cm)PWd0.95 (0.7-1.1cm) IVSs1.11 cmFS (%) 13 % LVDs2.81 (2.0-3.8cm)PWs1.06 cm Mitral Valve E/A ratio0.0 TDI E/Lateral E'0.0E/Medial E'0.0 Tricuspid Valve TR Peak [id number] [id number] Peak Gr.29mmHg [id number] LEFT VENTRICLE The left ventricle is normal size. There is normal left ventricular wall thickness. The left ventricular function is normal. The left ventricular ejection fraction is within the normal range. There is normal LV segmental wall motion. A Fib RIGHT VENTRICLE The right ventricle is normal size. There is normal right ventricular wall thickness. The right ventricular systolic function is normal. ATRIA The left atrium is borderline dilated. The right atrium is borderline dilated. The atrial septum is aneurysmal. AORTIC VALVE The aortic valve is not well visualized. No aortic regurgitation is present. There is no aortic valvular stenosis. MITRAL VALVE The mitral valve is mildly thickened. There is no mitral valve stenosis. Mitral regurgitation is moderate. TRICUSPID VALVE The tricuspid valve is normal in structure There is mild tricuspid regurgitation. There is mild pulmonary hypertension. PULMONIC VALVE The pulmonary valve is normal in structure and function. There is no pulmonic valvular regurgitation. GREAT VESSELS The aortic root is normal in size. The IVC is normal in size and collapses >50% with inspiration. PERICARDIAL EFFUSION The pericardium appears normal. <Conclusion> The left ventricle is normal size. There is normal left ventricular wall thickness. The left ventricular function is normal. The left ventricular ejection fraction is within the normal range. There is normal LV segmental wall motion. Mitral regurgitation is moderate. There is mild pulmonary hypertension.
--- NOTE | 2017-01-22 19:16 | CP.PCM.PN ---
Subjective - Date & Time of Evaluation Date of Evaluation: 01/22/17 Time of Evaluation: 22:22 - Subjective Subjective: Doing well Refused MRI Objective - Vital Signs/Intake and Output Vital Signs (last 24 hours): Temp Pulse Resp BP Pulse Ox 97.3 F L 65 16 136/69 96 01/22/17 16:48 01/22/17 16:48 01/22/17 16:48 01/22/17 16:48 01/22/17 16:48 - Medications Medications: Current Medications Alendronate Sodium (Fosamax) 70 mg PO QWK [facility] Aspirin (Aspirin Chewable) 81 mg PO DAILY [facility] Last Admin: 01/22/17 09:26 Dose: 81 mg Atorvastatin Calcium (Lipitor) 20 mg PO DAILY [facility] Last Admin: 01/22/17 11:00 Dose: 20 mg Carvedilol (Coreg) 3.125 mg PO Q12H [facility] Last Admin: 01/22/17 09:00 Dose: 3.125 mg Docusate Sodium (Colace) 100 mg PO BID [facility] Last Admin: 01/22/17 17:37 Dose: 100 mg Enalapril Maleate (Vasotec) 20 mg PO DAILY [facility] Last Admin: 01/22/17 09:26 Dose: 20 mg Lorazepam (Ativan) 0.5 mg PO DAILY PRN PRN Reason: Anxiety Last Admin: 01/20/17 22:50 Dose: 0.5 mg Metformin HCl (Glucophage) 500 mg PO BID [facility] Last Admin: 01/22/17 17:37 Dose: 500 mg Montelukast Sodium (Singulair) 10 mg PO DAILY [facility] Last Admin: 01/22/17 09:26 Dose: 10 mg Multivitamins/Minerals (Therapeutic-M Tab) 1 tab PO DAILY [facility] Last Admin: 01/22/17 09:26 Dose: 1 tab Pantoprazole Sodium (Protonix Ec Tab) 40 mg PO DAILY [facility] Last Admin: 01/22/17 09:26 Dose: 40 mg Paroxetine HCl (Paxil) 20 mg PO DAILY [facility] Last Admin: 01/22/17 09:26 Dose: 20 mg Simethicone (Mylicon Chew Tab) 80 mg PO TID PRN PRN Reason: Flatulence - Labs Labs: PT 10.6 Seconds (9.8-13.1) 01/20/17 14:31 INR 0.9 (0.9-1.2) 01/20/17 14:31 APTT 40.4 Seconds (25.6-37.1) H 01/20/17 14:31 - Respiratory Exam Respiratory Exam: NORMAL BREATHING PATTERN - Cardiovascular Exam Cardiovascular Exam: Tachycardia - GI/Abdominal Exam GI & Abdominal Exam: Normal Bowel Sounds Assessment and Plan - Assessment and Plan (Free Text) Assessment: TIA?? Speech?? NIDDM HTN Hypercholest Admit to telemetry Cardiology and Neurology W/U in process COPD Prov Atrovent Hx of chronic anxiety Ativan
[2017-01-23] MEDS: Multivitamin With Minerals Tab PO SCH (09:53)
[2017-01-23] MEDS: Pantoprazole 40 mg EC Tab PO SCH (09:53)
--- NOTE | 2017-01-23 12:16 | CP.PCM.CON ---
History of Present Illness - History of Present Illness History of Present Illness: 86 yo female admitted with episode of speech slurring, possible TIA. Neurology consultation obtained. No chest pain or dyspnea. Hemodynamically stable. Past Patient History - Past Medical History & Family History Past Medical History?: Yes - Past Social History Smoking Status: Former Smoker - CARDIAC Hx Congestive Heart Failure: Yes Hx Hypercholesterolemia: Yes Hx Hypertension: Yes - PULMONARY Hx Asthma: Yes - NEUROLOGICAL Hx Neurological Disorder: Yes Hx Alzheimer's Disease: No HX Cerebrovascular Accident: No Hx Dementia: No Hx Dizziness: Yes (occasionally) Hx Meningitis: No Hx Migraine: No Hx Multiple Sclerosis: No Hx Paralysis: No Hx Parkinson's Disease: No Hx Seizures: No Hx Syncope: No Hx Transient Ischemic Attacks (TIA): No Hx Vertigo: No - HEENT Hx HEENT Problems: No Hx Blind: No Hx Cataracts: No Hx Deafness: No Hx Difficulty Chewing: No Hx Epistaxis: No Hx Glaucoma: No Hx Macular Degeneration: No Hx Sinusitis: No - RENAL Hx Chronic Kidney Disease: No Hx Dialysis: No Hx Kidney Stones: No Hx Neurogenic Bladder: No Hx Pyelonephritis: No Hx Renal (Kidney) Cancer: No Hx Renal Failure: No - ENDOCRINE/METABOLIC Hx Endocrine Disorders: Yes Hx Adrenal Cancer: No Hx Diabetes Insipidus: No Hx Diabetes Mellitus Type 1: No Hx Diabetes Mellitus Type 2: Yes Hx Hyperthyroidism: No Hx Hypothyroidism: No Hx Systemic Lupus Erythematosus: No - HEMATOLOGICAL/ONCOLOGICAL Hx Blood Disorders: No Hx AIDS: No Hx Anemia: No Hx Blood Transfusions: No Hx Blood Transfusion Reaction: No Hx Bruising: No Hx Cancer: No Hx Chemotherapy: No Hx Cirrhosis: No Hx Gum Bleeding: No Hx Hemophilia: No Hx Hepatitis A: No Hx Hepatitis B: No Hx Hepatitis C: No Hx Human Immunodeficiency Virus (HIV): No Hx Leukemia: No Hx Metastesis: No Hx Shingles: No Hx Sickle Cell Disease: No Hx Unexplained Bleeding: No Hx von Willebrand's Disease: No - INTEGUMENTARY Hx Dermatological Problems: No Hx Basil Cell: No Hx De La Cruz: No Hx Cellulitis: No Hx Eczema: No Hx Melanoma: No Hx Psoriasis: No Hx Squamous Cell: No - MUSCULOSKELETAL/RHEUMATOLOGICAL Hx Musculoskeletal Disorders: No Hx Arthritis: No Hx Back Pain: No Hx Degenerative Joint Disease: No Hx Falls: Yes (2 broken hips, broken arm and ankle) Hx Fractures: Yes Hx Gout: No Hx Herniated Disk: No Hx Myasthenia Gravis: No Hx Osteoarthritis: No Hx Osteomyelitis: No Hx Osteoporosis: No Hx Rhabdomyolysis: No Hx Rheumatoid Arthritis: No Hx Spinal Stenosis: No Hx Unsteady Gait: Yes - GASTROINTESTINAL Hx Gastrointestinal Disorders: Yes Hx Bowel Surgery: No Hx Clostridium Difficile: No Hx Colitis: No Hx Colostomy: No Hx Constipation: No Hx Crohn's Disease: No Hx Diarrhea: No Hx Diverticulitis: No Hx Esophageal Varices: No Hx Fatty Liver Disease: No Hx Gall Bladder Disease: No Hx Gastritis: No Hx Gastroesophageal Reflux: No Hx Hemorrhoids: No Hx Ileostomy: No Hx Irritable Bowel: No Hx Liver Failure: No Hx Nausea: No Hx Pancreatitis: No HX Swallowing Problems: No Hx Ulcer: No Hx Vomiting: No Other/Comment: rectal prolapse surgery 1 year ago - GENITOURINARY/GYNECOLOGICAL Hx Genitourinary Disorders: No Hx Bladder Cancer: No Hx Bladder Stone: No Hx Cervical Cancer: No Hx Hematuria: No Hx Incontinence: No Hx Ovarian Cancer: No Hx Postmenopausal Bleeding: No Hx Reproductive Disorders: No Hx Sexually Transmitted Disorders: No Hx Uterine Cancer: No Hx Urinary Tract Infection: No - PSYCHIATRIC Hx Anxiety: Yes Hx Depression: Yes - SURGICAL HISTORY Hx Surgeries: Yes Hx Abdominal Aortic Aneurysm Repair: No Hx Amputation: No Hx Angiogram: No Hx Angioplasty: No Hx Appendectomy: No Hx Arteriovenous Shunt: No Hx Arthroscopy: No Hx Bile Duct Stent: No Hx Breast Biopsy: No Hx Cataract Extraction: No Hx Cardiac Catheterization: No Hx Carotid Endarterectomy: No Hx Section: No Hx Cholecystectomy: No Hx Coronary Artery Bypass Graft: No Hx Coronary Stent: No Hx Dilation and Curettage: No Hx Eye Surgery: No Hx Femoral-Popliteal Bypass Graft: No Hx Gastric Bypass Surgery: No Hx Herniorrhaphy: No Hx Hysterectomy: No Hx Joint Replacement: No Hx Kidney Transplant: No Hx Liver Transplant: No Hx Mastectomy: No Hx Musculoskeletal Surgery: No Hx Open Heart Surgery: No Hx Open Reduction Internal Fixation: No Hx Orthopedic Surgery: No Hx Parathyroidectomy: No Hx Penile Implant: No Hx Pulmonary Surgery: No Hx Splenectomy: No Hx Thyroidectomy: No Hx Tonsillectomy: No Hx Tubal Ligation: No Hx Valve Replacement: No Hx Vascular Surgery: No Hx Vascular Access Device: No Other/Comment: shoulder and knee sx - ANESTHESIA Hx Anesthesia: Yes Hx Anesthesia Reactions: No Hx Malignant Hyperthermia: No Has any member of the family had a problem w/ anesthesia?: No Meds Allergies/Adverse Reactions: Allergies Allergy/AdvReac Type Severity Reaction Status Date / Time No Known Allergies Allergy Verified 01/16/15 03:07 - Medications Medications: Current Medications Alendronate Sodium (Fosamax) 70 mg PO QWK [facility] Aspirin (Aspirin Chewable) 81 mg PO DAILY [facility] Last Admin: 01/23/17 09:53 Dose: 81 mg Atorvastatin Calcium (Lipitor) 20 mg PO DAILY [facility] Last Admin: 01/23/17 09:54 Dose: 20 mg Carvedilol (Coreg) 3.125 mg PO Q12H [facility] Last Admin: 01/23/17 09:53 Dose: 3.125 mg Docusate Sodium (Colace) 100 mg PO BID [facility] Last Admin: 01/23/17 09:54 Dose: 100 mg Enalapril Maleate (Vasotec) 20 mg PO DAILY [facility] Last Admin: 01/23/17 09:53 Dose: 20 mg Lorazepam (Ativan) 0.5 mg PO DAILY PRN PRN Reason: Anxiety Last Admin: 01/20/17 22:50 Dose: 0.5 mg Metformin HCl (Glucophage) 500 mg PO BID [facility] Last Admin: 01/23/17 09:53 Dose: 500 mg Montelukast Sodium (Singulair) 10 mg PO DAILY [facility] Last Admin: 01/23/17 09:53 Dose: 10 mg Multivitamins/Minerals (Therapeutic-M Tab) 1 tab PO DAILY [facility] Last Admin: 01/23/17 09:53 Dose: 1 tab Pantoprazole Sodium (Protonix Ec Tab) 40 mg PO DAILY [facility] Last Admin: 01/23/17 09:53 Dose: 40 mg Paroxetine HCl (Paxil) 20 mg PO DAILY [facility] Last Admin: 01/23/17 09:54 Dose: 20 mg Simethicone (Mylicon Chew Tab) 80 mg PO TID PRN PRN Reason: Flatulence Physical Exam - Head Exam Head Exam: NORMAL INSPECTION - Respiratory Exam Respiratory Exam: Clear to Auscultation Bilateral - Cardiovascular Exam Cardiovascular Exam: Irregular Rhythm - GI/Abdominal Exam GI & Abdominal Exam: Normal Bowel Sounds - Extremities Exam Extremities exam: Positive for: normal inspection Results - Vital Signs Recent Vital Signs: Last Vital Signs Temp 97.9 F 01/23/17 08:50 Pulse 67 01/23/17 09:53 Resp 20 01/23/17 08:50 BP 179/83 H 01/23/17 09:53 Pulse Ox 97 01/23/17 08:50 - Labs Result Diagrams: 01/20/17 14:35 01/20/17 14:35 Labs: Laboratory Results - last 24 hr 01/22/17 01/22/17 01/22/17 12:30 16:04 21:39 POC Glucose (mg/dL) 76 103 Vitamin B12 863 TSH 3rd Generation 1.30 01/23/17 01/23/17 05:18 10:56 POC Glucose (mg/dL) 104 256 H Vitamin B12 TSH 3rd Generation Assessment & Plan - Assessment and Plan (Free Text) Assessment: No unstable cardiac symptoms. NSR on EKG, Normal LVEF by echo , no source of embolus, no significant carotid stenosis. Continue current medications.
--- NOTE | 2017-01-23 16:49 | CP.PCM.PN ---
Subjective - Date & Time of Evaluation Date of Evaluation: 01/23/17 Time of Evaluation: 22:22 - Subjective Subjective: Above noted Objective - Vital Signs/Intake and Output Vital Signs (last 24 hours): Temp Pulse Resp BP Pulse Ox 98.3 F 67 16 142/63 95 01/23/17 16:06 01/23/17 16:06 01/23/17 16:06 01/23/17 16:06 01/23/17 16:06 - Medications Medications: Current Medications Alendronate Sodium (Fosamax) 70 mg PO QWK [facility] Aspirin (Aspirin Chewable) 81 mg PO DAILY [facility] Last Admin: 01/23/17 09:53 Dose: 81 mg Atorvastatin Calcium (Lipitor) 20 mg PO DAILY [facility] Last Admin: 01/23/17 09:54 Dose: 20 mg Carvedilol (Coreg) 3.125 mg PO Q12H [facility] Last Admin: 01/23/17 09:53 Dose: 3.125 mg Docusate Sodium (Colace) 100 mg PO BID [facility] Last Admin: 01/23/17 16:43 Dose: 100 mg Enalapril Maleate (Vasotec) 20 mg PO DAILY [facility] Last Admin: 01/23/17 09:53 Dose: 20 mg Lorazepam (Ativan) 0.5 mg PO DAILY PRN PRN Reason: Anxiety Last Admin: 01/20/17 22:50 Dose: 0.5 mg Metformin HCl (Glucophage) 500 mg PO BID [facility] Last Admin: 01/23/17 16:43 Dose: 500 mg Montelukast Sodium (Singulair) 10 mg PO DAILY [facility] Last Admin: 01/23/17 09:53 Dose: 10 mg Multivitamins/Minerals (Therapeutic-M Tab) 1 tab PO DAILY [facility] Last Admin: 01/23/17 09:53 Dose: 1 tab Pantoprazole Sodium (Protonix Ec Tab) 40 mg PO DAILY [facility] Last Admin: 01/23/17 09:53 Dose: 40 mg Paroxetine HCl (Paxil) 20 mg PO DAILY [facility] Last Admin: 01/23/17 09:54 Dose: 20 mg Simethicone (Mylicon Chew Tab) 80 mg PO TID PRN PRN Reason: Flatulence - Labs Labs: PT 10.6 Seconds (9.8-13.1) 01/20/17 14:31 INR 0.9 (0.9-1.2) 01/20/17 14:31 APTT 40.4 Seconds (25.6-37.1) H 01/20/17 14:31 - Respiratory Exam Respiratory Exam: NORMAL BREATHING PATTERN - Cardiovascular Exam Cardiovascular Exam: REGULAR RHYTHM - GI/Abdominal Exam GI & Abdominal Exam: Normal Bowel Sounds Assessment and Plan - Assessment and Plan (Free Text) Assessment: TIA?? Speech?? NIDDM HTN Hypercholest Admit to telemetry Cardiology and Neurology W/U in process COPD Prov Atrovent Hx of chronic anxiety Ativan
[2017-01-24] MEDS: Multivitamin With Minerals Tab PO SCH (08:37)
[2017-01-24] MEDS: Pantoprazole 40 mg EC Tab PO SCH (08:37)
[2017-01-24] MEDS ORDERED: ALENDRONATE 70 MG TAB PO SCH (09:00)
[2017-01-24 12:39] VITALS: PULSE 69; TEMP 97.5
--- NOTE | 2017-01-24 13:09 | CP.PCM.PN ---
Subjective - Date & Time of Evaluation Date of Evaluation: 01/24/17 Time of Evaluation: 22:22 - Subjective Subjective: Above noted Objective - Vital Signs/Intake and Output Vital Signs (last 24 hours): Temp Pulse Resp BP Pulse Ox 97.5 F L 69 20 187/69 H 99 01/24/17 12:00 01/24/17 12:00 01/24/17 12:00 01/24/17 12:00 01/24/17 12:00 Intake and Output: 01/24/17 01/24/17 06:59 18:59 Intake Total 1020 Output Total 650 Balance 370 - Medications Medications: Current Medications Alendronate Sodium (Fosamax) 70 mg PO QWK [facility] Aspirin (Aspirin Chewable) 81 mg PO DAILY [facility] Last Admin: 01/24/17 08:36 Dose: 81 mg Atorvastatin Calcium (Lipitor) 20 mg PO DAILY [facility] Last Admin: 01/24/17 08:37 Dose: 20 mg Carvedilol (Coreg) 3.125 mg PO Q12H [facility] Last Admin: 01/24/17 09:23 Dose: 3.125 mg Docusate Sodium (Colace) 100 mg PO BID [facility] Last Admin: 01/24/17 08:36 Dose: 100 mg Enalapril Maleate (Vasotec) 20 mg PO DAILY [facility] Last Admin: 01/24/17 08:38 Dose: 20 mg Lorazepam (Ativan) 0.5 mg PO DAILY PRN PRN Reason: Anxiety Last Admin: 01/20/17 22:50 Dose: 0.5 mg Metformin HCl (Glucophage) 500 mg PO BID [facility] Last Admin: 01/24/17 08:36 Dose: 500 mg Montelukast Sodium (Singulair) 10 mg PO DAILY [facility] Last Admin: 01/24/17 08:37 Dose: 10 mg Multivitamins/Minerals (Therapeutic-M Tab) 1 tab PO DAILY [facility] Last Admin: 01/24/17 08:37 Dose: 1 tab Pantoprazole Sodium (Protonix Ec Tab) 40 mg PO DAILY [facility] Last Admin: 01/24/17 08:37 Dose: 40 mg Paroxetine HCl (Paxil) 20 mg PO DAILY [facility] Last Admin: 01/24/17 08:37 Dose: 20 mg Simethicone (Mylicon Chew Tab) 80 mg PO TID PRN PRN Reason: Flatulence - Labs Labs: PT 10.6 Seconds (9.8-13.1) 01/20/17 14:31 INR 0.9 (0.9-1.2) 01/20/17 14:31 APTT 40.4 Seconds (25.6-37.1) H 01/20/17 14:31 - Respiratory Exam Respiratory Exam: NORMAL BREATHING PATTERN - Cardiovascular Exam Cardiovascular Exam: REGULAR RHYTHM - GI/Abdominal Exam GI & Abdominal Exam: Normal Bowel Sounds Assessment and Plan - Assessment and Plan (Free Text) Assessment: TIA?? Speech?? NIDDM HTN Hypercholest Admit to telemetry Cardiology and Neurology COPD Prov Atrovent Hx of chronic anxiety Ativan
[2017-01-24 13:49] VITALS: BP 160/68; RESP 17; O2SAT 98
== END 2017-01-24 14:49 | DRG 69 ==
LOC: H.ER 13:49 → H.ERHOLD 16:03 → H.TEL 18:26 → OBSVTOIN 01-21 14:45
PROVIDERS: ADMIT Family Medicine Geriatric Medicine; ATTEND Family Medicine Geriatric Medicine
DX: G45.9 Transient cerebral ischemic attack, unspecified (principal); I11.0 Hypertensive heart disease with heart failure; I50.9 Heart failure, unspecified; J44.9 Chronic obstructive pulmonary disease, unspecified; E11.9 Type 2 diabetes mellitus without complications; F22 Delusional disorders; E78.00 Pure hypercholesterolemia, unspecified; I25.10 Atherosclerotic heart disease of native coronary artery without angina pectoris; Z79.82 Long term (current) use of aspirin; Z79.83 Long term (current) use of bisphosphonates; Z79.84 Long term (current) use of oral hypoglycemic drugs; Z79.899 Other long term (current) drug therapy; Z83.3 Family history of diabetes mellitus; Z87.891 Personal history of nicotine dependence; F32.9 Major depressive disorder, single episode, unspecified; F41.9 Anxiety disorder, unspecified; R26.81 Unsteadiness on feet

== ENCOUNTER 2017-01-24 10:21 | Inpatient (IN) | payer OTHER, MEDICAID ==
[2017-01-24 14:52] VITALS: BMI 25.4
[2017-01-24] MEDS ORDERED: ALENDRONATE 70 MG TAB PO SCH (20:00)
[2017-01-24] MEDS: Pantoprazole 20 mg EC Tab PO SCH (22:24)
[2017-01-25 07:29] LABS: BASO % 0.4 % (0.0-2.0); EOS # 0.3 K/uL (0.0-0.7); EOS % 4.8 % (0.0-4.0); HEMOGLOBIN 12.6 g/dL (12.0-16.0); LYMPH # 1.8 K/uL (1.0-4.3); LYMPH % 26.2 % (20.0-40.0); MEAN CELL VOLUME 96.8 fl (81.0-99.0); MEAN CORPUSCULAR HEMOGLOBIN 32.1 pg (27.0-31.0); MEAN CORPUSCULAR HGB CONC 33.2 g/dL (33.0-37.0); MEAN PLATELET VOLUME 8.1 fl (7.2-11.7); MONO # 0.5 K/uL (0.0-0.8); MONO % 6.8 % (0.0-10.0); NEUT # 4.2 K/uL (1.8-7.0); NEUT % 61.8 % (50.0-75.0); RBC 3.91 Mil/uL (3.80-5.20); RED CELL DISTRIBUTION WIDTH 14.8 % (11.5-14.5); WHITE BLOOD COUNT 6.7 K/uL (4.8-10.8)
[2017-01-25 07:39] LABS: PARTIAL THROMBOPLASTIN TIME 35.2 Seconds (25.6-37.1); PROTHROMBIN TIME 10.8 Seconds (9.8-13.1)
[2017-01-25 07:40] LABS: ALB/GLOB RATIO 1.5 (1.0-2.1); ALBUMIN 3.9 g/dL (3.5-5.0); ALT/SGPT 32 U/L (9-52); AST/SGOT 24 U/L (14-36); BLOOD UREA NITROGEN 20 mg/dl (7-17); CALCIUM 9.1 mg/dL (8.4-10.2); GFR AFRICAN-AMERICAN > 60; GFR NON-AFRICAN AMERICAN > 60
[2017-01-25] MEDS ORDERED: Multivitamin With Minerals Tab PO SCH (09:00)
[2017-01-25] MEDS ORDERED: Patient's Own Med (Multivitamin [Multi-Vitamin Daily] 1 TAB) PO SCH (09:00)
[2017-01-25] MEDS: Simethicone 80 mg Chewtab PO SCH ×2 (12:26→17:54)
[2017-01-25] MEDS: Pantoprazole 20 mg EC Tab PO SCH ×2 (12:28→17:54)
[2017-01-25] MEDS ORDERED: Chlorhexidine Gluconate 1 APPL/PKT TP ONE (14:51)
--- NOTE | 2017-01-25 15:09 | CP.PCM.CON ---
History of Present Illness - History of Present Illness History of Present Illness: General Surgery consult note for Dr. Koo Consulted for: prolapsed hemorrhoid 86F with PMH including hemorrhoids and constipation for which she takes stool softeners at home who is admitted to TCU for PT/OT. Patient states that she had to strain to have a bowel movement this morning and felt her rectum sticking out. She stated that at the time it was a little sore. The nurse reported that she saw a hemorrhoid mildly protruding out but was able to reduce it easily without recurrence of the prolapse. Patient denies any blood around the rectum or in the stool, or any nausea, vomiting, diarrhea, abdominal pain, dysuria, hematuria, or any other symptoms. Patient states that her pain completely resolved when the hemorrhoid was reduced. Patient states that she has had an operation of the rectum with Dr. Koo a few years ago, but does not recall the nature of the surgery. Review of Systems - Review of Systems All systems: reviewed and no additional remarkable complaints except (as per HPI ) - Constitutional Constitutional: absent: Chills, Fever - Cardiovascular Cardiovascular: absent: Chest Pain, Leg Edema - Respiratory Respiratory: absent: Cough, Dyspnea - Gastrointestinal Gastrointestinal: Constipation. absent: Abdominal Pain, Diarrhea, Hematochezia , Melena, Nausea, Vomiting Additional comments: hemorrhoid - Genitourinary Genitourinary: absent: Change in Urinary Stream, Difficulty Urinating, Dysuria Past Patient History - Past Medical History & Family History Past Medical History?: Yes - Past Social History Smoking Status: Former Smoker - CARDIAC Hx Congestive Heart Failure: Yes Hx Hypercholesterolemia: Yes Hx Hypertension: Yes - PULMONARY Hx Asthma: Yes - NEUROLOGICAL HX Cerebrovascular Accident: No - HEENT Hx HEENT Problems: No Hx Blind: No Hx Cataracts: No Hx Deafness: No Hx Difficulty Chewing: No Hx Epistaxis: No Hx Glaucoma: No Hx Macular Degeneration: No - RENAL Hx Renal Failure: No - ENDOCRINE/METABOLIC Hx Diabetes Mellitus Type 1: No Hx Diabetes Mellitus Type 2: Yes Hx Hypothyroidism: No - HEMATOLOGICAL/ONCOLOGICAL Hx Blood Disorders: No Hx AIDS: No Hx Anemia: No Hx Blood Transfusions: No Hx Blood Transfusion Reaction: No Hx Bruising: No Hx Cancer: No Hx Chemotherapy: No Hx Cirrhosis: No Hx Gum Bleeding: No Hx Hemophilia: No Hx Hepatitis A: No Hx Hepatitis B: No Hx Hepatitis C: No Hx Human Immunodeficiency Virus (HIV): No Hx Leukemia: No Hx Metastesis: No Hx Shingles: No Hx Sickle Cell Disease: No Hx Unexplained Bleeding: No Hx von Willebrand's Disease: No - INTEGUMENTARY Hx Dermatological Problems: No Hx Basil Cell: No Hx De La Cruz: No Hx Cellulitis: No Hx Eczema: No Hx Melanoma: No Hx Psoriasis: No Hx Squamous Cell: No - MUSCULOSKELETAL/RHEUMATOLOGICAL Hx Arthritis: No Hx Rheumatoid Arthritis: No - GASTROINTESTINAL Hx Gastrointestinal Disorders: Yes Hx Bowel Surgery: No Hx Clostridium Difficile: No Hx Colitis: No Hx Colostomy: No Hx Constipation: No Hx Crohn's Disease: No Hx Diarrhea: No Hx Diverticulitis: No Hx Esophageal Varices: No Hx Fatty Liver Disease: No Hx Gall Bladder Disease: No Hx Gastritis: No Hx Gastroesophageal Reflux: No Hx Hemorrhoids: No Hx Ileostomy: No Hx Irritable Bowel: No Hx Liver Failure: No Hx Nausea: No Hx Pancreatitis: No HX Swallowing Problems: No Hx Ulcer: No Hx Vomiting: No Other/Comment: rectal prolapse surgery 1 year ago - GENITOURINARY/GYNECOLOGICAL Hx Genitourinary Disorders: No Hx Bladder Cancer: No Hx Bladder Stone: No Hx Cervical Cancer: No Hx Hematuria: No Hx Incontinence: No Hx Ovarian Cancer: No Hx Postmenopausal Bleeding: No Hx Reproductive Disorders: No Hx Sexually Transmitted Disorders: No Hx Uterine Cancer: No Hx Urinary Tract Infection: No - PSYCHIATRIC Hx Anxiety: Yes Hx Depression: Yes - SURGICAL HISTORY Hx Surgeries: Yes Hx Abdominal Aortic Aneurysm Repair: No Hx Amputation: No Hx Angiogram: No Hx Angioplasty: No Hx Appendectomy: No Hx Arteriovenous Shunt: No Hx Arthroscopy: No Hx Bile Duct Stent: No Hx Breast Biopsy: No Hx Cataract Extraction: No Hx Cardiac Catheterization: No Hx Carotid Endarterectomy: No Hx Section: No Hx Cholecystectomy: No Hx Coronary Artery Bypass Graft: No Hx Coronary Stent: No Hx Dilation and Curettage: No Hx Eye Surgery: No Hx Femoral-Popliteal Bypass Graft: No Hx Gastric Bypass Surgery: No Hx Herniorrhaphy: No Hx Hysterectomy: No Hx Joint Replacement: No Hx Kidney Transplant: No Hx Liver Transplant: No Hx Mastectomy: No Hx Musculoskeletal Surgery: No Hx Open Heart Surgery: No Hx Open Reduction Internal Fixation: No Hx Orthopedic Surgery: No Hx Parathyroidectomy: No Hx Penile Implant: No Hx Pulmonary Surgery: No Hx Splenectomy: No Hx Thyroidectomy: No Hx Tonsillectomy: No Hx Tubal Ligation: No Hx Valve Replacement: No Hx Vascular Surgery: No Hx Vascular Access Device: No Other/Comment: shoulder and knee sx - ANESTHESIA Hx Anesthesia: Yes Hx Anesthesia Reactions: No Hx Malignant Hyperthermia: No Meds Allergies/Adverse Reactions: Allergies Allergy/AdvReac Type Severity Reaction Status Date / Time No Known Allergies Allergy Verified 01/16/15 03:07 - Medications Medications: Current Medications Alendronate Sodium (Fosamax) 70 mg PO QWK [facility] Aspirin (Aspirin Chewable) 81 mg PO DAILY [facility] Last Admin: 01/25/17 08:42 Dose: 81 mg Atorvastatin Calcium (Lipitor) 20 mg PO DAILY [facility] Last Admin: 01/25/17 08:45 Dose: 20 mg Carvedilol (Coreg) 6.25 mg PO Q12 [facility] Docusate Sodium (Colace) 100 mg PO BID [facility] Last Admin: 01/25/17 08:42 Dose: 100 mg Enalapril Maleate (Vasotec) 20 mg PO DAILY [facility] Last Admin: 01/25/17 08:45 Dose: 20 mg Ferrous Sulfate (Feosol) 325 mg PO TID [facility] Last Admin: 01/25/17 12:25 Dose: 325 mg Lorazepam (Ativan) 0.5 mg PO DAILY [facility] Last Admin: 01/25/17 08:40 Dose: 0.5 mg Metformin HCl (Glucophage) 500 mg PO BID [facility] Last Admin: 01/25/17 08:44 Dose: 500 mg Montelukast Sodium (Singulair) 10 mg PO DAILY [facility] Last Admin: 01/25/17 12:28 Dose: 10 mg Multivitamins/Minerals (Therapeutic-M Tab) 1 tab PO DAILY [facility] Last Admin: 01/25/17 08:45 Dose: 1 tab Pantoprazole Sodium (Protonix Ec Tab) 20 mg PO BID [facility] Last Admin: 01/25/17 12:28 Dose: 20 mg Paroxetine HCl (Paxil) 20 mg PO DAILY [facility] Last Admin: 01/25/17 12:28 Dose: 20 mg Psyllium Hydrophilic Mucilloid (Hydrocil Instant) 1 pkt PO DAILY [facility] Simethicone (Mylicon Chew Tab) 80 mg PO TID [facility] Last Admin: 01/25/17 12:26 Dose: 80 mg Physical Exam - Constitutional Appears: Well, Non-toxic, No Acute Distress - Head Exam Head Exam: ATRAUMATIC, NORMOCEPHALIC - Eye Exam Eye Exam: Normal appearance. absent: Conjunctival injection, Scleral icterus - ENT Exam ENT Exam: Mucous Membranes Moist, Normal Oropharynx - Respiratory Exam Respiratory Exam: NORMAL BREATHING PATTERN. absent: Accessory Muscle Use, Respiratory Distress - GI/Abdominal Exam GI & Abdominal Exam: Soft. absent: Distended, Tenderness - Rectal Exam Rectal Exam: Hemorrhoids (one large, soft, non-tender hemorrhoid visible on the external anus). absent: Bloody Stool, Fecal Impaction Additional comments: Rectum had normal tone, non-prolapsed with valsalva - Extremities Exam Extremities exam: Negative for: calf tenderness, pedal edema - Neurological Exam Neurological exam: Alert, Oriented x3 - Psychiatric Exam Psychiatric exam: Normal Affect, Normal Mood - Skin Skin Exam: Dry, Intact, Normal Color, Warm Results - Vital Signs Recent Vital Signs: Last Vital Signs Temp 98.2 F 01/25/17 08:40 Pulse 65 01/25/17 08:43 Resp 20 01/25/17 08:40 BP 170/82 H 01/25/17 08:43 Pulse Ox 99 01/25/17 08:40 - Labs Result Diagrams: 01/25/17 05:30 01/25/17 05:30 Labs: Laboratory Results - last 24 hr 01/24/17 01/24/17 01/25/17 16:18 21:04 05:30 WBC RBC Hgb Hct MCV MCH MCHC RDW Plt Count MPV Neut % (Auto) Lymph % (Auto) Kidder % (Auto) Eos % (Auto) Baso % (Auto) Neut # Lymph # Kidder # Eos # Baso # PT 10.8 INR 1.0 APTT 35.2 Sodium Potassium Chloride Carbon Dioxide Anion Gap BUN Creatinine Est GFR ( Amer) Est GFR (Non-Af Amer) POC Glucose (mg/dL) 100 177 H Random Glucose Calcium Total Bilirubin AST ALT Alkaline Phosphatase Total Protein Albumin Globulin Albumin/Globulin Ratio 01/25/17 01/25/17 01/25/17 05:30 05:30 05:36 WBC 6.7 RBC 3.91 Hgb 12.6 Hct 37.8 MCV 96.8 MCH 32.1 H MCHC 33.2 RDW 14.8 H Plt Count 289 MPV 8.1 Neut % (Auto) 61.8 Lymph % (Auto) 26.2 Kidder % (Auto) 6.8 Eos % (Auto) 4.8 H Baso % (Auto) 0.4 Neut # 4.2 Lymph # 1.8 Kidder # 0.5 Eos # 0.3 Baso # 0.0 PT INR APTT Sodium 138 Potassium 5.0 Chloride 102 Carbon Dioxide 28 Anion Gap 14 BUN 20 H Creatinine 0.7 Est GFR ( Amer) > 60 Est GFR (Non-Af Amer) > 60 POC Glucose (mg/dL) 126 H Random Glucose 110 H Calcium 9.1 Total Bilirubin 0.3 AST 24 ALT 32 Alkaline Phosphatase 73 Total Protein 6.6 Albumin 3.9 Globulin 2.7 Albumin/Globulin Ratio 1.5 01/25/17 10:47 WBC RBC Hgb Hct MCV MCH MCHC RDW Plt Count MPV Neut % (Auto) Lymph % (Auto) Kidder % (Auto) Eos % (Auto) Baso % (Auto) Neut # Lymph # Kidder # Eos # Baso # PT INR APTT Sodium Potassium Chloride Carbon Dioxide Anion Gap BUN Creatinine Est GFR ( Amer) Est GFR (Non-Af Amer) POC Glucose (mg/dL) 180 H Random Glucose Calcium Total Bilirubin AST ALT Alkaline Phosphatase Total Protein Albumin Globulin Albumin/Globulin Ratio Assessment & Plan - Assessment and Plan (Free Text) Assessment: 86F with PMH of constipation and hemorrhoids with hemorrhoid prolapse, now resolved Plan: -No surgical intervention -Continue colace -Add daily metamucil -Encourage water intake, ambulation, and high fiber diet -Reach out to the surgery team again if there are further complaints or concerns Discussed with Dr. Hayes Nixon, PGY2
[2017-01-25] MEDS: Psyllium Packet PO SCH (22:20)
[2017-01-26] MEDS: Psyllium Packet PO SCH (09:11)
[2017-01-26] MEDS: Pantoprazole 20 mg EC Tab PO SCH ×2 (09:11→17:23)
[2017-01-26] MEDS: Simethicone 80 mg Chewtab PO SCH ×3 (09:14→17:24)
--- NOTE | 2017-01-26 14:20 | CP.PCM.PN ---
Subjective - Date & Time of Evaluation Date of Evaluation: 01/26/17 Time of Evaluation: 14:18 - Subjective Subjective: Surgery for Dr. Koo Pt s&e. ISACC. Denies F/C/N/V/D/CP/SOB. + reg Bm. Non bloody. Denies pain. + void. Objective - Vital Signs/Intake and Output Vital Signs (last 24 hours): Temp Pulse Resp BP Pulse Ox 97.7 F 75 20 143/81 98 01/26/17 08:26 01/26/17 13:58 01/26/17 08:26 01/26/17 13:58 01/26/17 13:58 - Medications Medications: Current Medications Alendronate Sodium (Fosamax) 70 mg PO QWK [facility] Aspirin (Aspirin Chewable) 81 mg PO DAILY [facility] Last Admin: 01/26/17 09:10 Dose: 81 mg Atorvastatin Calcium (Lipitor) 20 mg PO DAILY [facility] Last Admin: 01/26/17 09:11 Dose: 20 mg Carvedilol (Coreg) 6.25 mg PO Q12 [facility] Last Admin: 01/26/17 09:10 Dose: 6.25 mg Docusate Sodium (Colace) 100 mg PO BID [facility] Last Admin: 01/26/17 09:10 Dose: 100 mg Enalapril Maleate (Vasotec) 20 mg PO DAILY [facility] Last Admin: 01/26/17 09:11 Dose: 20 mg Ferrous Sulfate (Feosol) 325 mg PO TID [facility] Last Admin: 01/26/17 12:35 Dose: 325 mg Lorazepam (Ativan) 0.5 mg PO DAILY [facility] Last Admin: 01/26/17 09:12 Dose: 0.5 mg Metformin HCl (Glucophage) 500 mg PO BID [facility] Last Admin: 01/26/17 09:11 Dose: 500 mg Montelukast Sodium (Singulair) 10 mg PO DAILY [facility] Last Admin: 01/26/17 09:11 Dose: 10 mg Multivitamins/Minerals (Therapeutic-M Tab) 1 tab PO DAILY [facility] Last Admin: 01/25/17 08:45 Dose: 1 tab Pantoprazole Sodium (Protonix Ec Tab) 20 mg PO BID [facility] Last Admin: 01/26/17 09:11 Dose: 20 mg Paroxetine HCl (Paxil) 20 mg PO DAILY [facility] Last Admin: 01/26/17 09:11 Dose: 20 mg Psyllium Hydrophilic Mucilloid (Hydrocil Instant) 1 pkt PO DAILY [facility] Last Admin: 01/26/17 09:11 Dose: 1 pkt Simethicone (Mylicon Chew Tab) 80 mg PO TID [facility] Last Admin: 01/26/17 12:36 Dose: 80 mg - Labs Labs: 01/25/17 05:30 01/25/17 05:30 PT 10.8 Seconds (9.8-13.1) 01/25/17 05:30 INR 1.0 (0.9-1.2) 01/25/17 05:30 APTT 35.2 Seconds (25.6-37.1) 01/25/17 05:30 - Constitutional Appears: No Acute Distress - Head Exam Head Exam: ATRAUMATIC, NORMAL INSPECTION, NORMOCEPHALIC - Eye Exam Eye Exam: EOMI, Normal appearance, PERRL Pupil Exam: NORMAL ACCOMODATION, PERRL - ENT Exam ENT Exam: Mucous Membranes Moist, Normal Exam - Neck Exam Neck Exam: Full ROM, Normal Inspection. absent: Lymphadenopathy - Respiratory Exam Respiratory Exam: Clear to Ausculation Bilateral, NORMAL BREATHING PATTERN - Cardiovascular Exam Cardiovascular Exam: REGULAR RHYTHM, +S1, +S2. absent: Murmur - GI/Abdominal Exam GI & Abdominal Exam: Soft, Normal Bowel Sounds. absent: Distended, Tenderness - Rectal Exam Rectal Exam: Hemorrhoids. absent: Black Stool, Bloody Stool, Fecal Impaction Additional comments: 1cm hemorroid. Non tender. No mass. No rectal prolaps. - Exam Exam: NORMAL INSPECTION - Extremities Exam Extremities Exam: Full ROM, Normal Capillary Refill, Normal Inspection. absent : Joint Swelling, Pedal Edema - Back Exam Back Exam: NORMAL INSPECTION - Neurological Exam Neurological Exam: Alert, Awake, CN II-XII Intact, Normal Gait, Oriented x3 - Psychiatric Exam Psychiatric exam: Normal Affect, Normal Mood - Skin Skin Exam: Dry, Intact, Normal Color, Warm Assessment and Plan - Assessment and Plan (Free Text) Assessment: 86F with PMH of constipation and hemorrhoids with hemorrhoid prolapse, now resolved Plan: -No surgical intervention -Continue colace -Add daily metamucil -Encourage water intake, ambulation, and high fiber diet -Reach out to the surgery team again if there are further complaints or concerns Discussed with Dr. Koo
--- NOTE | 2017-01-26 22:51 | CP.PCM.HP ---
History of Present Illness - History of Present Illness History of Present Illness: 86 yo admitted to TCU for deconditioning Present on Admission - Present on Admission Any Indicators Present on Admission: No Past Patient History - Past Medical History & Family History Past Medical History?: Yes - Past Social History Smoking Status: Former Smoker - CARDIAC Hx Congestive Heart Failure: Yes Hx Hypercholesterolemia: Yes Hx Hypertension: Yes - PULMONARY Hx Asthma: Yes - NEUROLOGICAL HX Cerebrovascular Accident: No - HEENT Hx HEENT Problems: No Hx Blind: No Hx Cataracts: No Hx Deafness: No Hx Difficulty Chewing: No Hx Epistaxis: No Hx Glaucoma: No Hx Macular Degeneration: No - RENAL Hx Renal Failure: No - ENDOCRINE/METABOLIC Hx Diabetes Mellitus Type 1: No Hx Diabetes Mellitus Type 2: Yes Hx Hypothyroidism: No - HEMATOLOGICAL/ONCOLOGICAL Hx Blood Disorders: No Hx AIDS: No Hx Anemia: No Hx Blood Transfusions: No Hx Blood Transfusion Reaction: No Hx Bruising: No Hx Cancer: No Hx Chemotherapy: No Hx Cirrhosis: No Hx Gum Bleeding: No Hx Hemophilia: No Hx Hepatitis A: No Hx Hepatitis B: No Hx Hepatitis C: No Hx Human Immunodeficiency Virus (HIV): No Hx Leukemia: No Hx Metastesis: No Hx Shingles: No Hx Sickle Cell Disease: No Hx Unexplained Bleeding: No Hx von Willebrand's Disease: No - INTEGUMENTARY Hx Dermatological Problems: No Hx Basil Cell: No Hx De La Cruz: No Hx Cellulitis: No Hx Eczema: No Hx Melanoma: No Hx Psoriasis: No Hx Squamous Cell: No - MUSCULOSKELETAL/RHEUMATOLOGICAL Hx Arthritis: No Hx Rheumatoid Arthritis: No - GASTROINTESTINAL Hx Gastrointestinal Disorders: Yes Hx Bowel Surgery: No Hx Clostridium Difficile: No Hx Colitis: No Hx Colostomy: No Hx Constipation: No Hx Crohn's Disease: No Hx Diarrhea: No Hx Diverticulitis: No Hx Esophageal Varices: No Hx Fatty Liver Disease: No Hx Gall Bladder Disease: No Hx Gastritis: No Hx Gastroesophageal Reflux: No Hx Hemorrhoids: No Hx Ileostomy: No Hx Irritable Bowel: No Hx Liver Failure: No Hx Nausea: No Hx Pancreatitis: No HX Swallowing Problems: No Hx Ulcer: No Hx Vomiting: No Other/Comment: rectal prolapse surgery 1 year ago - GENITOURINARY/GYNECOLOGICAL Hx Genitourinary Disorders: No Hx Bladder Cancer: No Hx Bladder Stone: No Hx Cervical Cancer: No Hx Hematuria: No Hx Incontinence: No Hx Ovarian Cancer: No Hx Postmenopausal Bleeding: No Hx Reproductive Disorders: No Hx Sexually Transmitted Disorders: No Hx Uterine Cancer: No Hx Urinary Tract Infection: No - PSYCHIATRIC Hx Anxiety: Yes Hx Depression: Yes - SURGICAL HISTORY Hx Surgeries: Yes Hx Abdominal Aortic Aneurysm Repair: No Hx Amputation: No Hx Angiogram: No Hx Angioplasty: No Hx Appendectomy: No Hx Arteriovenous Shunt: No Hx Arthroscopy: No Hx Bile Duct Stent: No Hx Breast Biopsy: No Hx Cataract Extraction: No Hx Cardiac Catheterization: No Hx Carotid Endarterectomy: No Hx Section: No Hx Cholecystectomy: No Hx Coronary Artery Bypass Graft: No Hx Coronary Stent: No Hx Dilation and Curettage: No Hx Eye Surgery: No Hx Femoral-Popliteal Bypass Graft: No Hx Gastric Bypass Surgery: No Hx Herniorrhaphy: No Hx Hysterectomy: No Hx Joint Replacement: No Hx Kidney Transplant: No Hx Liver Transplant: No Hx Mastectomy: No Hx Musculoskeletal Surgery: No Hx Open Heart Surgery: No Hx Open Reduction Internal Fixation: No Hx Orthopedic Surgery: No Hx Parathyroidectomy: No Hx Penile Implant: No Hx Pulmonary Surgery: No Hx Splenectomy: No Hx Thyroidectomy: No Hx Tonsillectomy: No Hx Tubal Ligation: No Hx Valve Replacement: No Hx Vascular Surgery: No Hx Vascular Access Device: No Other/Comment: shoulder and knee sx - ANESTHESIA Hx Anesthesia: Yes Hx Anesthesia Reactions: No Hx Malignant Hyperthermia: No Meds Allergies/Adverse Reactions: Allergies Allergy/AdvReac Type Severity Reaction Status Date / Time No Known Allergies Allergy Verified 01/16/15 03:07 Physical Exam - Respiratory Exam Respiratory Exam: NORMAL BREATHING PATTERN - Cardiovascular Exam Cardiovascular Exam: REGULAR RHYTHM - GI/Abdominal Exam GI & Abdominal Exam: Normal Bowel Sounds Results - Vital Signs Recent Vital Signs: Last Vital Signs Temp 97.2 F L 01/26/17 20:29 Pulse 97 H 01/26/17 20:57 Resp 20 01/26/17 20:29 BP 136/54 L 01/26/17 20:57 Pulse Ox 98 01/26/17 20:29 - Labs Result Diagrams: 01/25/17 05:30 01/25/17 05:30 Labs: Laboratory Results - last 24 hr 01/26/17 01/26/17 01/26/17 05:48 10:54 16:11 POC Glucose (mg/dL) 87 130 H 99 01/26/17 20:42 POC Glucose (mg/dL) 80 Assessment & Plan - Assessment and Plan (Free Text) Assessment: Decoditioning PT TIA?? Speech?? NIDDM HTN Hypercholest MRI refused [facility] Rectal Prolapse as per surgery COPD Prov Atrovent Hx of chronic anxiety Ativan - Date & Time Date: 01/26/17 Time: 22:22
[2017-01-27] MEDS: Psyllium Packet PO SCH (08:06)
[2017-01-27] MEDS: Simethicone 80 mg Chewtab PO SCH ×3 (08:10→17:48)
[2017-01-27] MEDS: Pantoprazole 20 mg EC Tab PO SCH ×2 (08:11→17:48)
--- NOTE | 2017-01-27 21:20 | CP.PCM.PN ---
Subjective - Date & Time of Evaluation Date of Evaluation: 01/27/17 Time of Evaluation: 22:22 - Subjective Subjective: Doing well Objective - Vital Signs/Intake and Output Vital Signs (last 24 hours): Temp Pulse Resp BP Pulse Ox 97.1 F L 65 20 125/62 98 01/27/17 16:45 01/27/17 16:45 01/27/17 16:45 01/27/17 16:45 01/27/17 16:45 - Medications Medications: Current Medications Alendronate Sodium (Fosamax) 70 mg PO QWK [facility] Aspirin (Aspirin Chewable) 81 mg PO DAILY [facility] Last Admin: 01/27/17 08:04 Dose: 81 mg Atorvastatin Calcium (Lipitor) 20 mg PO DAILY [facility] Last Admin: 01/27/17 08:07 Dose: 20 mg Carvedilol (Coreg) 6.25 mg PO Q12 [facility] Last Admin: 01/27/17 08:05 Dose: 6.25 mg Docusate Sodium (Colace) 100 mg PO BID [facility] Last Admin: 01/27/17 17:46 Dose: 100 mg Enalapril Maleate (Vasotec) 20 mg PO DAILY [facility] Last Admin: 01/27/17 08:12 Dose: 20 mg Ferrous Sulfate (Feosol) 325 mg PO TID [facility] Last Admin: 01/27/17 17:46 Dose: 325 mg Lorazepam (Ativan) 0.5 mg PO DAILY [facility] Last Admin: 01/27/17 08:03 Dose: 0.5 mg Metformin HCl (Glucophage) 500 mg PO BID [facility] Last Admin: 01/27/17 17:47 Dose: 500 mg Montelukast Sodium (Singulair) 10 mg PO DAILY [facility] Last Admin: 01/27/17 08:12 Dose: 10 mg Multivitamins/Minerals (Therapeutic-M Tab) 1 tab PO DAILY [facility] Last Admin: 01/25/17 08:45 Dose: 1 tab Pantoprazole Sodium (Protonix Ec Tab) 20 mg PO BID [facility] Last Admin: 01/27/17 17:48 Dose: 20 mg Paroxetine HCl (Paxil) 20 mg PO DAILY [facility] Last Admin: 01/27/17 08:11 Dose: 20 mg Psyllium Hydrophilic Mucilloid (Hydrocil Instant) 1 pkt PO DAILY [facility] Last Admin: 01/27/17 08:06 Dose: 1 pkt Simethicone (Mylicon Chew Tab) 80 mg PO TID [facility] Last Admin: 01/27/17 17:48 Dose: 80 mg - Labs Labs: 01/25/17 05:30 01/25/17 05:30 PT 10.8 Seconds (9.8-13.1) 01/25/17 05:30 INR 1.0 (0.9-1.2) 01/25/17 05:30 APTT 35.2 Seconds (25.6-37.1) 01/25/17 05:30 - Respiratory Exam Respiratory Exam: NORMAL BREATHING PATTERN - Cardiovascular Exam Cardiovascular Exam: REGULAR RHYTHM - GI/Abdominal Exam GI & Abdominal Exam: Normal Bowel Sounds Assessment and Plan - Assessment and Plan (Free Text) Assessment: Decoditioning PT TIA?? Speech?? NIDDM HTN Hypercholest MRI refused [facility] Rectal Prolapse as per surgery COPD Prov Atrovent Hx of chronic anxiety Ativan
[2017-01-28] MEDS: Pantoprazole 20 mg EC Tab PO SCH ×2 (08:23→17:06)
[2017-01-28] MEDS: Psyllium Packet PO SCH (08:23)
[2017-01-28] MEDS: Simethicone 80 mg Chewtab PO SCH ×3 (08:23→17:06)
--- NOTE | 2017-01-28 20:41 | CP.PCM.PN ---
Subjective - Date & Time of Evaluation Date of Evaluation: 01/28/17 Time of Evaluation: 22:22 - Subjective Subjective: Continues to do well Objective - Vital Signs/Intake and Output Vital Signs (last 24 hours): Temp Pulse Resp BP Pulse Ox 99.0 F 60 20 142/62 98 01/28/17 17:52 01/28/17 17:52 01/28/17 17:52 01/28/17 17:52 01/28/17 17:52 - Medications Medications: Current Medications Alendronate Sodium (Fosamax) 70 mg PO QWK [facility] Aspirin (Aspirin Chewable) 81 mg PO DAILY [facility] Last Admin: 01/28/17 08:21 Dose: 81 mg Atorvastatin Calcium (Lipitor) 20 mg PO DAILY [facility] Last Admin: 01/28/17 08:24 Dose: 20 mg Carvedilol (Coreg) 6.25 mg PO Q12 [facility] Last Admin: 01/28/17 08:21 Dose: 6.25 mg Docusate Sodium (Colace) 100 mg PO BID [facility] Last Admin: 01/28/17 17:05 Dose: 100 mg Enalapril Maleate (Vasotec) 20 mg PO DAILY [facility] Last Admin: 01/28/17 08:23 Dose: 20 mg Ferrous Sulfate (Feosol) 325 mg PO TID [facility] Last Admin: 01/28/17 17:06 Dose: 325 mg Lorazepam (Ativan) 0.5 mg PO HS PRN PRN Reason: Insomnia Metformin HCl (Glucophage) 500 mg PO BID [facility] Last Admin: 01/28/17 17:06 Dose: 500 mg Montelukast Sodium (Singulair) 10 mg PO DAILY [facility] Last Admin: 01/28/17 08:24 Dose: 10 mg Multivitamins/Minerals (Therapeutic-M Tab) 1 tab PO DAILY [facility] Last Admin: 01/25/17 08:45 Dose: 1 tab Pantoprazole Sodium (Protonix Ec Tab) 20 mg PO BID [facility] Last Admin: 01/28/17 17:06 Dose: 20 mg Paroxetine HCl (Paxil) 20 mg PO DAILY [facility] Last Admin: 01/28/17 08:24 Dose: 20 mg Psyllium Hydrophilic Mucilloid (Hydrocil Instant) 1 pkt PO DAILY [facility] Last Admin: 01/28/17 08:23 Dose: 1 pkt Simethicone (Mylicon Chew Tab) 80 mg PO TID [facility] Last Admin: 01/28/17 17:06 Dose: 80 mg - Labs Labs: 01/25/17 05:30 01/25/17 05:30 PT 10.8 Seconds (9.8-13.1) 01/25/17 05:30 INR 1.0 (0.9-1.2) 01/25/17 05:30 APTT 35.2 Seconds (25.6-37.1) 01/25/17 05:30 - Respiratory Exam Respiratory Exam: NORMAL BREATHING PATTERN - Cardiovascular Exam Cardiovascular Exam: REGULAR RHYTHM - GI/Abdominal Exam GI & Abdominal Exam: Normal Bowel Sounds Assessment and Plan - Assessment and Plan (Free Text) Assessment: Decoditioning PT TIA?? Speech?? NIDDM HTN Hypercholest MRI refused [facility] Rectal Prolapse as per surgery Asthma COPD Atopy Prov Atrovent Pulmicort Flonase Hx of chronic anxiety Ativan
[2017-01-29] MEDS: Albuterol-Ipratrop 3 mg / 0.5 (3 ml) UD INH PRN (07:46)
[2017-01-29] MEDS ORDERED: Budesonide 0.25 mg/2 ml Inhal Susp UD INH SCH (08:00)
[2017-01-29] MEDS: Simethicone 80 mg Chewtab PO SCH ×3 (08:50→18:09)
[2017-01-29] MEDS: Pantoprazole 20 mg EC Tab PO SCH ×2 (08:50→18:09)
[2017-01-29] MEDS: Psyllium Packet PO SCH (08:51)
[2017-01-29] MEDS: Budesonide 0.25 mg/2 ml Inhal Susp UD INH SCH (09:00)
--- NOTE | 2017-01-29 18:48 | CP.PCM.PN ---
Subjective - Date & Time of Evaluation Date of Evaluation: 01/29/17 Time of Evaluation: 22:22 - Subjective Subjective: Doing well Objective - Vital Signs/Intake and Output Vital Signs (last 24 hours): Temp Pulse Resp BP Pulse Ox 97.9 F 63 20 142/60 99 01/29/17 16:32 01/29/17 16:32 01/29/17 16:32 01/29/17 16:32 01/29/17 16:32 - Medications Medications: Current Medications Albuterol/Ipratropium (Duoneb 3 Mg/0.5 Mg (3 Ml) Ud) 3 ml INH RQ4 PRN PRN Reason: Shortness of Breath Last Admin: 01/29/17 07:46 Dose: 3 ml Alendronate Sodium (Fosamax) 70 mg PO QWK [facility] Aspirin (Aspirin Chewable) 81 mg PO DAILY [facility] Last Admin: 01/29/17 08:51 Dose: 81 mg Atorvastatin Calcium (Lipitor) 20 mg PO DAILY [facility] Last Admin: 01/29/17 08:51 Dose: 20 mg Budesonide (Pulmicort Respules) 0.25 mg INH DAILY [facility] Carvedilol (Coreg) 6.25 mg PO Q12 [facility] Last Admin: 01/29/17 08:50 Dose: 6.25 mg Docusate Sodium (Colace) 100 mg PO BID [facility] Last Admin: 01/29/17 18:10 Dose: 100 mg Enalapril Maleate (Vasotec) 20 mg PO DAILY [facility] Last Admin: 01/29/17 08:51 Dose: 20 mg Ferrous Sulfate (Feosol) 325 mg PO TID [facility] Last Admin: 01/29/17 18:10 Dose: 325 mg Fluticasone Propionate (Flonase) 2 spr LUIS DAILY [facility] Last Admin: 01/29/17 08:51 Dose: 2 spr Lorazepam (Ativan) 0.5 mg PO HS PRN PRN Reason: Insomnia Metformin HCl (Glucophage) 500 mg PO BID [facility] Last Admin: 01/29/17 18:10 Dose: 500 mg Montelukast Sodium (Singulair) 10 mg PO DAILY [facility] Last Admin: 01/29/17 08:51 Dose: 10 mg Multivitamins/Minerals (Therapeutic-M Tab) 1 tab PO DAILY [facility] Last Admin: 01/25/17 08:45 Dose: 1 tab Pantoprazole Sodium (Protonix Ec Tab) 20 mg PO BID [facility] Last Admin: 01/29/17 18:09 Dose: 20 mg Paroxetine HCl (Paxil) 20 mg PO DAILY [facility] Last Admin: 01/29/17 08:50 Dose: 20 mg Psyllium Hydrophilic Mucilloid (Hydrocil Instant) 1 pkt PO DAILY [facility] Last Admin: 01/29/17 08:51 Dose: 1 pkt Simethicone (Mylicon Chew Tab) 80 mg PO TID [facility] Last Admin: 01/29/17 18:09 Dose: 80 mg - Labs Labs: 01/25/17 05:30 01/25/17 05:30 PT 10.8 Seconds (9.8-13.1) 01/25/17 05:30 INR 1.0 (0.9-1.2) 01/25/17 05:30 APTT 35.2 Seconds (25.6-37.1) 01/25/17 05:30 - Respiratory Exam Respiratory Exam: NORMAL BREATHING PATTERN - Cardiovascular Exam Cardiovascular Exam: REGULAR RHYTHM - GI/Abdominal Exam GI & Abdominal Exam: Normal Bowel Sounds Assessment and Plan - Assessment and Plan (Free Text) Assessment: Decoditioning PT TIA?? Speech?? NIDDM HTN Hypercholest MRI refused [facility] Rectal Prolapse as per surgery Asthma COPD Atopy Prov Atrovent Pulmicort Flonase Hx of chronic anxiety Ativan
[2017-01-30] MEDS: Budesonide 0.25 mg/2 ml Inhal Susp UD INH SCH (07:41)
[2017-01-30] MEDS: Albuterol-Ipratrop 3 mg / 0.5 (3 ml) UD INH PRN (07:41)
[2017-01-30] MEDS: Pantoprazole 20 mg EC Tab PO SCH ×2 (08:42→16:34)
[2017-01-30] MEDS: Simethicone 80 mg Chewtab PO SCH ×3 (08:42→16:33)
[2017-01-30] MEDS: Psyllium Packet PO SCH (08:43)
--- NOTE | 2017-01-30 20:56 | CP.PCM.PN ---
Subjective - Date & Time of Evaluation Date of Evaluation: 01/30/17 Time of Evaluation: 22:22 - Subjective Subjective: Doing well Objective - Vital Signs/Intake and Output Vital Signs (last 24 hours): Temp Pulse Resp BP Pulse Ox 98.1 F 65 20 111/61 96 01/30/17 16:20 01/30/17 16:20 01/30/17 16:20 01/30/17 16:20 01/30/17 16:20 - Medications Medications: Current Medications Albuterol/Ipratropium (Duoneb 3 Mg/0.5 Mg (3 Ml) Ud) 3 ml INH RQ4 PRN PRN Reason: Shortness of Breath Last Admin: 01/30/17 07:41 Dose: 3 ml Alendronate Sodium (Fosamax) 70 mg PO QWK [facility] Aspirin (Aspirin Chewable) 81 mg PO DAILY [facility] Last Admin: 01/30/17 08:43 Dose: 81 mg Atorvastatin Calcium (Lipitor) 20 mg PO DAILY [facility] Last Admin: 01/30/17 08:43 Dose: 20 mg Budesonide (Pulmicort Respules) 0.25 mg INH DAILY [facility] Last Admin: 01/30/17 07:41 Dose: 0.25 mg Carvedilol (Coreg) 6.25 mg PO Q12 [facility] Last Admin: 01/30/17 08:42 Dose: 6.25 mg Docusate Sodium (Colace) 100 mg PO BID [facility] Last Admin: 01/30/17 16:34 Dose: 100 mg Enalapril Maleate (Vasotec) 20 mg PO DAILY [facility] Last Admin: 01/30/17 08:43 Dose: 20 mg Ferrous Sulfate (Feosol) 325 mg PO TID [facility] Last Admin: 01/30/17 16:33 Dose: 325 mg Fluticasone Propionate (Flonase) 2 spr LUIS DAILY [facility] Last Admin: 01/30/17 08:43 Dose: 2 spr Lorazepam (Ativan) 0.5 mg PO DAILY PRN PRN Reason: Anxiety Metformin HCl (Glucophage) 500 mg PO BID [facility] Last Admin: 01/30/17 16:34 Dose: 500 mg Montelukast Sodium (Singulair) 10 mg PO DAILY [facility] Last Admin: 01/30/17 08:43 Dose: 10 mg Multivitamins/Minerals (Therapeutic-M Tab) 1 tab PO DAILY [facility] Last Admin: 01/25/17 08:45 Dose: 1 tab Pantoprazole Sodium (Protonix Ec Tab) 20 mg PO BID [facility] Last Admin: 01/30/17 16:34 Dose: 20 mg Paroxetine HCl (Paxil) 20 mg PO DAILY [facility] Last Admin: 01/30/17 08:43 Dose: 20 mg Psyllium Hydrophilic Mucilloid (Hydrocil Instant) 1 pkt PO DAILY [facility] Last Admin: 01/30/17 08:43 Dose: 1 pkt Simethicone (Mylicon Chew Tab) 80 mg PO TID [facility] Last Admin: 01/30/17 16:33 Dose: 80 mg - Labs Labs: 01/25/17 05:30 01/25/17 05:30 PT 10.8 Seconds (9.8-13.1) 01/25/17 05:30 INR 1.0 (0.9-1.2) 01/25/17 05:30 APTT 35.2 Seconds (25.6-37.1) 01/25/17 05:30 - Respiratory Exam Respiratory Exam: NORMAL BREATHING PATTERN - Cardiovascular Exam Cardiovascular Exam: REGULAR RHYTHM - GI/Abdominal Exam GI & Abdominal Exam: Normal Bowel Sounds Assessment and Plan - Assessment and Plan (Free Text) Assessment: Decoditioning PT TIA?? Speech?? NIDDM HTN Hypercholest MRI refused [facility] Rectal Prolapse as per surgery Asthma COPD Atopy Prov Atrovent Pulmicort Flonase Hx of chronic anxiety Ativan
[2017-01-31] MEDS: Budesonide 0.25 mg/2 ml Inhal Susp UD INH SCH (07:42)
[2017-01-31] MEDS: Pantoprazole 20 mg EC Tab PO SCH ×2 (08:19→17:08)
[2017-01-31] MEDS: Simethicone 80 mg Chewtab PO SCH ×3 (08:19→17:08)
[2017-01-31] MEDS: Psyllium Packet PO SCH (08:21)
--- NOTE | 2017-01-31 18:52 | CP.PCM.PN ---
Subjective - Date & Time of Evaluation Date of Evaluation: 01/31/17 Time of Evaluation: 22:22 - Subjective Subjective: EKG done last night WNL Objective - Vital Signs/Intake and Output Vital Signs (last 24 hours): Temp Pulse Resp BP Pulse Ox 98.4 F 62 20 125/71 99 01/31/17 17:05 01/31/17 17:05 01/31/17 17:05 01/31/17 17:05 01/31/17 17:05 - Medications Medications: Current Medications Albuterol/Ipratropium (Duoneb 3 Mg/0.5 Mg (3 Ml) Ud) 3 ml INH RQ4 PRN PRN Reason: Shortness of Breath Last Admin: 01/30/17 07:41 Dose: 3 ml Alendronate Sodium (Fosamax) 70 mg PO QWK [facility] Stop: 02/01/17 06:31 Aspirin (Aspirin Chewable) 81 mg PO DAILY [facility] Last Admin: 01/31/17 08:20 Dose: 81 mg Atorvastatin Calcium (Lipitor) 20 mg PO DAILY [facility] Last Admin: 01/31/17 08:19 Dose: 20 mg Budesonide (Pulmicort Respules) 0.25 mg INH DAILY [facility] Last Admin: 01/31/17 07:42 Dose: 0.25 mg Carvedilol (Coreg) 6.25 mg PO Q12 [facility] Last Admin: 01/31/17 08:21 Dose: 6.25 mg Docusate Sodium (Colace) 100 mg PO BID [facility] Last Admin: 01/31/17 17:08 Dose: 100 mg Enalapril Maleate (Vasotec) 20 mg PO DAILY [facility] Last Admin: 01/31/17 08:20 Dose: 20 mg Ferrous Sulfate (Feosol) 325 mg PO TID [facility] Last Admin: 01/31/17 17:08 Dose: 325 mg Fluticasone Propionate (Flonase) 2 spr LUIS DAILY [facility] Last Admin: 01/31/17 08:20 Dose: 2 spr Lorazepam (Ativan) 0.5 mg PO DAILY PRN PRN Reason: Anxiety Metformin HCl (Glucophage) 500 mg PO BID [facility] Last Admin: 01/31/17 17:08 Dose: 500 mg Montelukast Sodium (Singulair) 10 mg PO DAILY [facility] Last Admin: 01/31/17 08:20 Dose: 10 mg Multivitamins/Minerals (Therapeutic-M Tab) 1 tab PO DAILY [facility] Last Admin: 01/25/17 08:45 Dose: 1 tab Pantoprazole Sodium (Protonix Ec Tab) 20 mg PO BID [facility] Last Admin: 01/31/17 17:08 Dose: 20 mg Paroxetine HCl (Paxil) 20 mg PO DAILY [facility] Last Admin: 01/31/17 08:19 Dose: 20 mg Psyllium Hydrophilic Mucilloid (Hydrocil Instant) 1 pkt PO DAILY [facility] Last Admin: 01/31/17 08:21 Dose: 1 pkt Simethicone (Mylicon Chew Tab) 80 mg PO TID [facility] Last Admin: 01/31/17 17:08 Dose: 80 mg - Labs Labs: 01/25/17 05:30 01/25/17 05:30 PT 10.8 Seconds (9.8-13.1) 01/25/17 05:30 INR 1.0 (0.9-1.2) 01/25/17 05:30 APTT 35.2 Seconds (25.6-37.1) 01/25/17 05:30 - Respiratory Exam Respiratory Exam: NORMAL BREATHING PATTERN - Cardiovascular Exam Cardiovascular Exam: REGULAR RHYTHM - GI/Abdominal Exam GI & Abdominal Exam: Normal Bowel Sounds Assessment and Plan - Assessment and Plan (Free Text) Assessment: Decoditioning PT TIA?? Speech?? NIDDM HTN Hypercholest MRI refused [facility] Rectal Prolapse as per surgery Asthma COPD Atopy Prov Atrovent Pulmicort Flonase Hx of chronic anxiety Ativan
[2017-02-01] MEDS ORDERED: ALENDRONATE 70 MG TAB PO ONE (06:30)
[2017-02-01] MEDS: Budesonide 0.25 mg/2 ml Inhal Susp UD INH SCH (07:29)
[2017-02-01] MEDS: Simethicone 80 mg Chewtab PO SCH ×3 (09:06→17:09)
[2017-02-01] MEDS: Pantoprazole 20 mg EC Tab PO SCH ×2 (09:07→17:10)
[2017-02-01] MEDS: Psyllium Packet PO SCH (09:07)
--- NOTE | 2017-02-01 10:36 | CARD ---
APPROVED REPORT EKG Measurement Heart [id number] <Conclusion> Normal sinus rhythm Normal ECG
--- NOTE | 2017-02-01 19:49 | CP.PCM.PN ---
Subjective - Date & Time of Evaluation Date of Evaluation: 02/01/17 Time of Evaluation: 22:22 - Subjective Subjective: Doing well Objective - Vital Signs/Intake and Output Vital Signs (last 24 hours): Temp Pulse Resp BP Pulse Ox 97.7 F 62 18 153/72 H 99 02/01/17 17:02 02/01/17 17:02 02/01/17 17:02 02/01/17 17:02 02/01/17 17:02 - Medications Medications: Current Medications Albuterol/Ipratropium (Duoneb 3 Mg/0.5 Mg (3 Ml) Ud) 3 ml INH RQ4 PRN PRN Reason: Shortness of Breath Last Admin: 01/30/17 07:41 Dose: 3 ml Aspirin (Aspirin Chewable) 81 mg PO DAILY [facility] Last Admin: 02/01/17 09:08 Dose: 81 mg Atorvastatin Calcium (Lipitor) 20 mg PO DAILY [facility] Last Admin: 02/01/17 09:08 Dose: 20 mg Budesonide (Pulmicort Respules) 0.25 mg INH DAILY [facility] Last Admin: 02/01/17 07:29 Dose: 0.25 mg Carvedilol (Coreg) 6.25 mg PO Q12 [facility] Last Admin: 02/01/17 09:06 Dose: 6.25 mg Docusate Sodium (Colace) 100 mg PO BID [facility] Last Admin: 02/01/17 17:09 Dose: 100 mg Enalapril Maleate (Vasotec) 20 mg PO DAILY [facility] Last Admin: 02/01/17 09:07 Dose: 20 mg Ferrous Sulfate (Feosol) 325 mg PO TID [facility] Last Admin: 02/01/17 17:09 Dose: 325 mg Fluticasone Propionate (Flonase) 2 spr LUIS DAILY [facility] Last Admin: 02/01/17 09:06 Dose: 2 spr Lorazepam (Ativan) 0.5 mg PO DAILY PRN PRN Reason: Anxiety Metformin HCl (Glucophage) 500 mg PO BID [facility] Last Admin: 02/01/17 17:09 Dose: 500 mg Montelukast Sodium (Singulair) 10 mg PO DAILY [facility] Last Admin: 02/01/17 09:06 Dose: 10 mg Multivitamins/Minerals (Therapeutic-M Tab) 1 tab PO DAILY [facility] Last Admin: 01/25/17 08:45 Dose: 1 tab Pantoprazole Sodium (Protonix Ec Tab) 20 mg PO BID [facility] Last Admin: 02/01/17 17:10 Dose: 20 mg Paroxetine HCl (Paxil) 20 mg PO DAILY [facility] Last Admin: 02/01/17 09:07 Dose: 20 mg Psyllium Hydrophilic Mucilloid (Hydrocil Instant) 1 pkt PO DAILY [facility] Last Admin: 02/01/17 09:07 Dose: 1 pkt Simethicone (Mylicon Chew Tab) 80 mg PO TID [facility] Last Admin: 02/01/17 17:09 Dose: 80 mg - Labs Labs: 01/25/17 05:30 01/25/17 05:30 PT 10.8 Seconds (9.8-13.1) 01/25/17 05:30 INR 1.0 (0.9-1.2) 01/25/17 05:30 APTT 35.2 Seconds (25.6-37.1) 01/25/17 05:30 - Respiratory Exam Respiratory Exam: NORMAL BREATHING PATTERN - Cardiovascular Exam Cardiovascular Exam: REGULAR RHYTHM - GI/Abdominal Exam GI & Abdominal Exam: Normal Bowel Sounds Assessment and Plan - Assessment and Plan (Free Text) Assessment: Decoditioning PT TIA?? Speech?? NIDDM HTN Hypercholest MRI refused [facility] Rectal Prolapse as per surgery Asthma COPD Atopy Prov Atrovent Pulmicort Flonase Hx of chronic anxiety Ativan
[2017-02-01 21:07] VITALS: PULSE 60
[2017-02-02] MEDS: Budesonide 0.25 mg/2 ml Inhal Susp UD INH SCH (07:40)
[2017-02-02] MEDS: Simethicone 80 mg Chewtab PO SCH ×2 (08:22→12:48)
[2017-02-02] MEDS: Pantoprazole 20 mg EC Tab PO SCH (08:22)
[2017-02-02] MEDS: Psyllium Packet PO SCH (08:22)
[2017-02-02 08:28] VITALS: BP 139/63
[2017-02-02 08:30] VITALS: RESP 20; O2SAT 100
[2017-02-02 10:44] VITALS: TEMP 97
--- NOTE | 2017-02-02 15:39 | CP.PCM.PN ---
Subjective - Date & Time of Evaluation Date of Evaluation: 02/02/17 Time of Evaluation: 22:22 - Subjective Subjective: Continues to improve Objective - Vital Signs/Intake and Output Vital Signs (last 24 hours): Temp Pulse Resp BP Pulse Ox 97 F L 60 20 139/63 100 02/02/17 09:00 02/02/17 09:00 02/02/17 09:00 02/02/17 09:00 02/02/17 09:00 - Medications Medications: Current Medications Albuterol/Ipratropium (Duoneb 3 Mg/0.5 Mg (3 Ml) Ud) 3 ml INH RQ4 PRN PRN Reason: Shortness of Breath Last Admin: 01/30/17 07:41 Dose: 3 ml Aspirin (Aspirin Chewable) 81 mg PO DAILY [facility] Last Admin: 02/02/17 08:22 Dose: 81 mg Atorvastatin Calcium (Lipitor) 20 mg PO DAILY [facility] Last Admin: 02/02/17 08:23 Dose: 20 mg Budesonide (Pulmicort Respules) 0.25 mg INH DAILY [facility] Last Admin: 02/02/17 07:40 Dose: 0.25 mg Carvedilol (Coreg) 6.25 mg PO Q12 [facility] Last Admin: 02/02/17 08:22 Dose: 6.25 mg Docusate Sodium (Colace) 100 mg PO BID [facility] Last Admin: 02/02/17 08:22 Dose: 100 mg Enalapril Maleate (Vasotec) 20 mg PO DAILY [facility] Last Admin: 02/02/17 08:22 Dose: 20 mg Ferrous Sulfate (Feosol) 325 mg PO TID [facility] Last Admin: 02/02/17 12:47 Dose: 325 mg Fluticasone Propionate (Flonase) 2 spr LUIS DAILY [facility] Last Admin: 02/02/17 08:21 Dose: 2 spr Lorazepam (Ativan) 0.5 mg PO DAILY PRN PRN Reason: Anxiety Metformin HCl (Glucophage) 500 mg PO BID [facility] Last Admin: 02/02/17 08:21 Dose: 500 mg Montelukast Sodium (Singulair) 10 mg PO DAILY [facility] Last Admin: 02/02/17 08:23 Dose: 10 mg Multivitamins/Minerals (Therapeutic-M Tab) 1 tab PO DAILY [facility] Last Admin: 01/25/17 08:45 Dose: 1 tab Pantoprazole Sodium (Protonix Ec Tab) 20 mg PO BID [facility] Last Admin: 02/02/17 08:22 Dose: 20 mg Paroxetine HCl (Paxil) 20 mg PO DAILY [facility] Last Admin: 02/02/17 09:28 Dose: 20 mg Psyllium Hydrophilic Mucilloid (Hydrocil Instant) 1 pkt PO DAILY [facility] Last Admin: 02/02/17 08:22 Dose: 1 pkt Simethicone (Mylicon Chew Tab) 80 mg PO TID [facility] Last Admin: 02/02/17 12:48 Dose: 80 mg - Labs Labs: 01/25/17 05:30 01/25/17 05:30 PT 10.8 Seconds (9.8-13.1) 01/25/17 05:30 INR 1.0 (0.9-1.2) 01/25/17 05:30 APTT 35.2 Seconds (25.6-37.1) 01/25/17 05:30 - Respiratory Exam Respiratory Exam: NORMAL BREATHING PATTERN - Cardiovascular Exam Cardiovascular Exam: REGULAR RHYTHM - GI/Abdominal Exam GI & Abdominal Exam: Normal Bowel Sounds Assessment and Plan - Assessment and Plan (Free Text) Assessment: Decoditioning PT TIA?? Speech?? NIDDM HTN Hypercholest MRI refused [facility] Rectal Prolapse as per surgery Asthma COPD Atopy Prov Atrovent Pulmicort Flonase Hx of chronic anxiety Ativan
== END 2017-02-02 15:30 | disposition home health service (06) | DRG 192 ==
LOC: H.TCU 14:53
PROVIDERS: ADMIT Family Medicine Geriatric Medicine; ATTEND Family Medicine Geriatric Medicine
PROC: F07M6FZ Therapeutic Exercise Treatment of Musculoskeletal System - Whole Body using Assistive, Adaptive, Supportive or Protective Equipment (ICD-10-PCS; principal; 2017-01-24)
PROC: F08Z4FZ Home Management Treatment using Assistive, Adaptive, Supportive or Protective Equipment (ICD-10-PCS; 2017-01-24)
DX: J44.9 Chronic obstructive pulmonary disease, unspecified (principal); I11.0 Hypertensive heart disease with heart failure; I50.9 Heart failure, unspecified; E11.9 Type 2 diabetes mellitus without complications; M62.81 Muscle weakness (generalized); E78.00 Pure hypercholesterolemia, unspecified; K62.3 Rectal prolapse; Z79.84 Long term (current) use of oral hypoglycemic drugs; Z87.891 Personal history of nicotine dependence; F32.9 Major depressive disorder, single episode, unspecified; F41.9 Anxiety disorder, unspecified; K59.00 Constipation, unspecified; K64.8 Other hemorrhoids; Z86.73 Personal history of transient ischemic attack (TIA), and cerebral infarction without residual deficits

== ENCOUNTER 2018-05-14 12:06 | Inpatient (IN) | payer MEDICARE, MEDICAID ==
[2018-05-14] MEDS ORDERED: Sodium Chloride 0.9% 1,000 ML IV STA (12:19)
--- NOTE | 2018-05-14 12:35 | ED PDOC ---
HPI: General Adult Time Seen by Provider: 05/14/18 12:11 Chief Complaint (Nursing): Trauma History Per: Patient, EMS Onset/Duration Of Symptoms: Hrs (1) Additional Complaint(s): Brought by EMS after super heard pt fall this AM. Pt recalls falling but cannot recount circumstances of fall. denies LOC, but hit her head when falling. Denies neck, back or hip pain. Pt denies dizziness. Past Medical History Vital Signs: Last Vital Signs Temp 95.6 F L 05/14/18 12:11 Pulse 93 H 05/14/18 12:11 Resp 16 05/14/18 12:11 BP 204/111 H 05/14/18 12:11 Pulse Ox 96 05/14/18 12:11 - Medical History PMH: Anxiety, Asthma, CAD, CHF, COPD, Depression, Fractures, HTN, Hypercholesterolemia, Paranoia Denies: Alzheimer's Disease, Anemia, Arthritis, Atrial Fibrillation, Bipolar Disorder, Bronchitis, Cardia Arrhythmia, Crohn's Disease, Dementia, Diverticulitis, Emphysema, Gastritis, Gall Bladder Disease, HIV, Hyperthyroidism, Hypothyroidism, Kidney Stones, Migraine, Mitral Valve Prolapse, Multiple Sclerosis, Osteoporosis, Pancreatitis, Parkinson's Disease, Peripheral Edema, Pneumonia, Post Traumatic Stress Disorder, Pulmonary Embolism, Chronic Kidney Disease, Rheumatoid Arthritis, Schizophrenia, Seizures, Sickle Cell Dise ase, Sexually Transmitted Disease, Sleep Apnea, TIA - Surgical History Surgical History: Denies: Appendectomy, CABG, Carotid Endarterectomy, Cholecystectomy, Coronary Stent, Pacemaker, Tonsillectomy - Family History Family History: States: Unknown Family Hx - Home Medications Home Medications: Ambulatory Orders Medication Instructions Recorded Alendronate [Fosamax] 70 mg PO FR 01/20/17 Carvedilol [Coreg] 3.125 mg PO Q12H 01/20/17 Docusate [Colace] 100 mg PO BID 01/20/17 Enalapril Maleate [Vasotec] 20 mg PO DAILY 01/20/17 Ferrous Sulfate [Ferosul] 325 mg PO TID 01/20/17 LORazepam [Ativan] 0.5 mg PO DAILY 01/20/17 Montelukast [Singulair] 10 mg PO HS 01/20/17 Multivitamin [Multi-Vitamin Daily] 1 tab PO DAILY 01/20/17 Omeprazole 20 mg PO BID 01/20/17 PARoxetine [Paxil] 20 mg PO DAILY 01/20/17 Simethicone [Mylicon Chew Tab] 80 mg PO TID 01/20/17 metFORMIN [glucOPHAGE] 500 mg PO BID 01/20/17 Aspirin [Aspirin Chewable] 81 mg PO DAILY 01/24/17 Albuterol/Ipratropium [Duoneb 3 3 ml IH Q12 05/14/18 mg/0.5 mg (3 ml) UD] Atorvastatin [Lipitor] 10 mg PO HS 05/14/18 Budesonide [Pulmicort Respules] 2 ml IH Q12 05/14/18 - Allergies Allergies/Adverse Reactions: Allergies Allergy/AdvReac Type Severity Reaction Status Date / Time No Known Allergies Allergy Verified 05/14/18 12:11 Review of Systems ROS Statement: Except As Marked, All Systems Reviewed And Found Negative Neurological: Positive for: Headache Physical Exam - Reviewed Nursing Documentation Reviewed: Yes Vital Signs Reviewed: Yes - Physical Exam Appears: Positive for: Non-toxic, No Acute Distress Head Exam: Positive for: ATRAUMATIC (Soft tissue swelling occipital area. No palp fx.) Skin: Positive for: Normal Color, Warm, DRY Eye Exam: Positive for: EOMI, Normal appearance, PERRL ENT: Positive for: Normal ENT Inspection Neck: Positive for: Normal, Painless ROM, Supple (Nontender) Cardiovascular/Chest: Positive for: Regular Rate, Rhythm Respiratory: Positive for: CNT, Normal Breath Sounds Gastrointestinal/Abdominal: Positive for: Normal Exam, Soft Back: Positive for: Normal Inspection. Negative for: Vertebral Tenderness Extremity: Positive for: Normal ROM, Other (No hip tenderness) Neurologic/Psych: Positive for: Alert. Negative for: Motor/Sensory Deficits - Laboratory Results Result Diagrams: 05/14/18 13:35 05/14/18 13:35 - ECG O2 Sat by Pulse Oximetry: 96 Disposition - Clinical Impression Clinical Impression: Pneumonia, Sepsis, Head injury - Patient ED Disposition Is Patient to be Admitted: Yes - Disposition Disposition Time: :18 Condition: FAIR Forms: [facility] (Panamanian) - Pt Status Changed To: Hospital Disposition Of: Inpatient - Admit Certification Admit to Inpatient:: After my assessment, the patient will require hospitalization for at least two midnights. This is because of the severity of symptoms shown, intensity of services needed, and/or the medical risk in this patient being treated as an outpatient. - POA Present On Arrival: None
[2018-05-14 14:04] LABS: BASO % 0.3 % (0.0-2.0); EOS # 0.2 K/uL (0.0-0.7); EOS % 2.3 % (0.0-4.0); HEMOGLOBIN 12.7 g/dL (12.0-16.0); LYMPH % 10.1 % (20.0-40.0); MEAN CELL VOLUME 99.8 fl (81.0-99.0); MEAN CORPUSCULAR HEMOGLOBIN 33.6 pg (27.0-31.0); MEAN CORPUSCULAR HGB CONC 33.6 g/dL (33.0-37.0); MEAN PLATELET VOLUME 7.8 fl (7.2-11.7); MONO # 0.6 K/uL (0.0-0.8); MONO % 6.1 % (0.0-10.0); NEUT # 8.2 K/uL (1.8-7.0); NEUT % 81.2 % (50.0-75.0); NRBC % 0.2 % (0.0-0.0); RBC 3.79 Mil/uL (3.80-5.20); RED CELL DISTRIBUTION WIDTH 13.5 % (11.5-14.5); WHITE BLOOD COUNT 10.2 K/uL (4.8-10.8)
[2018-05-14 14:06] LABS: ALB/GLOB RATIO 1.5 (1.0-2.1); ALBUMIN 4.6 g/dL (3.5-5.0); ALT/SGPT 27 U/L (9-52); AST/SGOT 34 U/L (14-36); BLOOD UREA NITROGEN 12 mg/dl (7-17); CALCIUM 9.2 mg/dL (8.4-10.2); GFR NON-AFRICAN AMERICAN > 60
[2018-05-14] MEDS ORDERED: Labetalol 5mg/ml (4ml) IVP ONE (15:35)
[2018-05-14] MEDS ORDERED: Labetalol 5mg/ml (4ml) ONE (15:43)
--- NOTE | 2018-05-14 16:41 | CT ---
Date of service: 05/14/2018 PROCEDURE: CT HEAD WITHOUT CONTRAST. HISTORY: r/o bleed COMPARISON: Noncontrast head CT 01/20/2017. TECHNIQUE: Axial computed tomography images were obtained through the head/brain without intravenous contrast. Radiation dose: Total exam DLP = 1106.79 mGy-cm. This CT exam was performed using one or more of the following dose reduction techniques: Automated exposure control, adjustment of the mA and/or kV according to patient size, and/or use of iterative reconstruction technique. FINDINGS: HEMORRHAGE: No intracranial hemorrhage. BRAIN: Good corticomedullary differentiation is seen. Reiterated diffuse cerebral atrophy and chronic microangiopathy. No suspicious extra-axial fluid collection is identified and the midline brain anatomy appears grossly nonfocal as imaged. No mass effect identified. VENTRICLES: Unremarkable. No hydrocephalus. CALVARIUM: No definite fracture appreciable. Atherosclerotic changes seen at the cavernous internal carotid artery segments bilaterally. PARANASAL SINUSES: Unremarkable as visualized. No significant inflammatory changes. MASTOID AIR CELLS: Unremarkable as visualized. No inflammatory changes. OTHER FINDINGS: None. IMPRESSION: Stable age related neuro degenerative findings as compared prior CT 01/20/2017. No definite intracranial acute changes as per standard CT criteria. Follow-up CT or MRI are available if clinically warranted.
[2018-05-14 16:46] LABS: VENOUS BLOOD GAS BASE EXCESS -0.6 mmol/L (0.0-2.0); VENOUS BLOOD GAS PCO2 64 mmHg (40-60); VENOUS BLOOD GAS PO2 24 mm/Hg (30-55); VENOUS BLOOD PH 7.25 (7.32-7.43)
[2018-05-14] MEDS ORDERED: Vancomycin 1 g Inj ONE (16:47)
[2018-05-14] MEDS ORDERED: cefTRIAXone (Rocephin) 1 gm Inj ONE (16:47)
--- NOTE | 2018-05-14 17:22 | RAD ---
Date of service: 05/14/2018 HISTORY: cough COMPARISON: 01/20/2017 FINDINGS: LUNGS: Multifocal infiltrates right lung greater than left. PLEURA: No significant pleural effusion identified, no pneumothorax apparent. CARDIOVASCULAR: Atherosclerotic calcifications identified primarily aortic arch. Normal size heart. OSSEOUS STRUCTURES: No significant abnormalities. VISUALIZED UPPER ABDOMEN: Normal. OTHER FINDINGS: None. IMPRESSION: Multifocal infiltrates right greater than left likely pneumonia/inflammatory process. Pulmonary edema would be a less likely consideration.
--- NOTE | 2018-05-14 17:23 | RAD ---
Date of service: 05/14/2018 PROCEDURE: Radiographs of the pelvis. HISTORY: injury COMPARISON: None. FINDINGS: BONES: No visible fracture identified. Bilateral orthopedic devices identified related to old fractures. JOINTS: Sacroiliac Joints: Unremarkable. Pubic Symphysis: Unremarkable. OTHER FINDINGS: None. IMPRESSION: Limited study common no visible fractures. If pelvic pathology/fracture suspected given this single-view, CT advised.
--- NOTE | 2018-05-14 17:26 | CT ---
Date of service: 05/14/2018 PROCEDURE: CT Cervical Spine without contrast HISTORY: fall COMPARISON: None available. TECHNIQUE: Axial computed tomography images were obtained of the cervical spine without the use of intravenous contrast. Coronal and sagittal reformatted images were created and reviewed. Radiation dose: Total exam DLP = 227.91 mGy-cm. This CT exam was performed using one or more of the following dose reduction techniques: Automated exposure control, adjustment of the mA and/or kV according to patient size, and/or use of iterative reconstruction technique. FINDINGS: VERTEBRAE: No fracture. Normal alignment. No destructive bony lesion. DISCS/SPINAL CANAL/NEURAL FORAMINA: Degenerative changes C3-4, C4-5, C5-6. discs heights are grossly preserved. PARASPINAL SOFT TISSUES: Unremarkable. OTHER FINDINGS: Dilated cervical and upper thoracic esophagus. IMPRESSION: No acute findings related to/accounting for the clinical presentation.
--- NOTE | 2018-05-14 20:54 | CP.PCM.PN ---
Subjective - Date & Time of Evaluation Date of Evaluation: 05/14/18 Time of Evaluation: 22:22 - Subjective Subjective: 88 yo presented to ER following fall CXR showed bilat infiltrates Objective - Vital Signs/Intake and Output Vital Signs (last 24 hours): Temp Pulse Resp BP Pulse Ox 95.6 F L 80 18 151/80 H 100 05/14/18 12:11 05/14/18 18:45 05/14/18 18:45 05/14/18 18:45 05/14/18 18:45 - Medications Medications: Current Medications Sodium Chloride (Sodium Chloride 0.9%) 1,000 mls @ 100 mls/hr IV .Q10H STA Stop: 05/14/18 22:18 Last Admin: 05/14/18 12:46 Dose: 100 mls/hr - Labs Labs: 05/14/18 13:35 05/14/18 13:35 - Respiratory Exam Respiratory Exam: NORMAL BREATHING PATTERN - Cardiovascular Exam Cardiovascular Exam: REGULAR RHYTHM - GI/Abdominal Exam GI & Abdominal Exam: Normal Bowel Sounds Assessment and Plan - Assessment and Plan (Free Text) Assessment: Fall etiol?? CAP ?? CXR ?? ABG CO2 retention with acidosis D/W Hospitalist
[2018-05-14 21:06] LABS: ABG ALLEN TEST YES; ARTERIAL BLOOD GAS HCO3 24.5 mmol/L (21-28); ARTERIAL BLOOD GAS HEMOGLOBIN 12.7 g/dL (11.7-17.4); ARTERIAL BLOOD GAS O2 CONTENT 17.1 ML/dL (15-23); ARTERIAL BLOOD GAS O2 SAT 100.3 % (95-98); ARTERIAL BLOOD GAS PCO2 39 mm/Hg (35-45); ARTERIAL BLOOD GAS PO2 97 mm/Hg (80-100); ARTERIAL BLOOD GAS TCO2 25.4 mmol/L (22-28)
[2018-05-14] MEDS: Albuterol-Ipratrop 3 mg / 0.5 (3 ml) UD IH SCH (23:33)
[2018-05-15] MEDS ORDERED: Sodium Chloride 0.9% 1,000 ML IV SCH (02:30)
[2018-05-15] MEDS: Albuterol-Ipratrop 3 mg / 0.5 (3 ml) UD IH SCH ×6 (04:44→23:23)
[2018-05-15 05:27] LABS: MEAN CELL VOLUME 97.9 fl (81.0-99.0); MEAN CORPUSCULAR HEMOGLOBIN 33.3 pg (27.0-31.0); RBC 3.31 Mil/uL (3.80-5.20); RED CELL DISTRIBUTION WIDTH 13.5 % (11.5-14.5); WHITE BLOOD COUNT 8.5 K/uL (4.8-10.8)
[2018-05-15 05:40] LABS: ALB/GLOB RATIO 1.4 (1.0-2.1); ALBUMIN 3.4 g/dL (3.5-5.0); ALT/SGPT 30 U/L (9-52); AST/SGOT 50 U/L (14-36); BLOOD UREA NITROGEN 14 mg/dl (7-17); CALCIUM 8.1 mg/dL (8.4-10.2); GFR NON-AFRICAN AMERICAN > 60
--- NOTE | 2018-05-15 08:25 | CON ---
DATE: 05/14/2018 REASON FOR CONSULTATION: Head injury and fall. HISTORY OF PRESENT ILLNESS: The patient is an 88-year-old female who has been asked for evaluation of the fall. The patent was brought by EMS after the patient was noted to have fallen. The patient does not recall what really happened. She denies any loss of consciousness but hit her head when she fell. As per her son, the patient's mental status is usually good. In the emergency room, the patient was noted to be very confused and agitated and had to be given Ativan and Haldol. History is mainly from the chart as well as the patient's son. The patient is unable to give history because of the medications she has received. REVIEW OF SYSTEMS: Unable to obtain because of the patient's current condition. However, there is no cough, no sputum production, no diarrhea. PAST MEDICAL HISTORY: Includes anxiety, asthma, coronary artery disease, CHF, COPD, depression, hypertension, hypercholesterolemia. MEDICATIONS: At home included Pulmicort, albuterol, Lipitor, Glucophage, Paxil, omeprazole, multivitamins, Singulair, Ativan, ferrous sulfate, Vasotec, Colace, Coreg, Fosamax, and aspirin. ALLERGIES: NO KNOWN DRUG ALLERGIES. SOCIAL HISTORY: The patient is a nonsmoker, nonalcoholic, and does not use any illicit drugs. FAMILY HISTORY: Reviewed and noncontributory to the case. PHYSICAL EXAMINATION: GENERAL: The patient is an elderly female, lying on the bed, in no acute distress. VITAL SIGNS: Blood pressure is 151/80, heart rate is 80 per minute, breathing at the rate of 16 per minute, temperature is 95.6 degrees Fahrenheit. HEENT: Head is normocephalic and atraumatic. NECK: Supple. There are no carotid bruit. LUNGS: Clear. CARDIOVASCULAR EXAM: S1, S2 audible. No murmurs. ABDOMEN: Soft and nontender with bowel sounds present. NEUROLOGY EXAMINATION: Mental status, the patient is lethargic, is status post Ativan and Haldol. She is not following commands. Cranial nerve examination, pupils 3 mm, bilaterally reactive to light. Positive movement. There is no facial asymmetry. Motor examination: Tone is normal. She is moving all four extremities symmetrically. Power appears to be 4/5 all over. Reflexes 1+ and symmetrical with absent ankle jerk. Plantars are downgoing bilaterally. Gait is deferred at the moment because of the patient's current condition. LABS REVIEWED: Shows WBC of 10.2, hemoglobin 12.7, hematocrit 37.8, and platelets of 340. Her sodium is 126, potassium 4.6, chloride 88, carbon dioxide content 25, BUN of 12, creatinine 0.5, and glucose of 221. She had CT scan of the head done which shows stable age related neurodegenerative findings as compared to prior CT of 01/20/2017. No intracranial acute pathology. The patient had a CT scan of the cervical spine which shows no fractures. The patient had a chest x-ray which showed multifocal infiltrates, right greater than left, likely pneumonia/inflammatory process. IMPRESSION: 1. Altered mental status which appears to be toxic metabolic encephalopathy secondary to hyponatremia as well as possible pneumonia. 2. Status post fall. RECOMMENDATIONS: 1. The patient will have an electroencephalogram. 2. The patient also did have vitamin B12 levels as well as T4 and TSH levels. 3. The patient was started on IV antibiotics which is to be continued. 4. The patient to have physical therapy for gait imbalance once she is more alert. 5. Please continue supportive care and other treatment. Thank you for the opportunity to participate in the care of this patient. Bonifacio Patel MD
[2018-05-15] MEDS ORDERED: ALENDRONATE 70 MG TAB PO SCH (09:00)
--- NOTE | 2018-05-15 09:27 | CP.PCM.CON ---
History of Present Illness - History of Present Illness History of Present Illness: This 88-year-old female was admitted through the emergency department where she presented after having a fall at home. Upon presentation she was noted to be hypothermic and hypertensive with adequate oxygenation and mild tachycardia. A chest x-ray suggested patchy pneumonia in the right lung. Laboratory data showed a normal glucose site count and hyponatremia and hyperglycemia. She was admitted to the hospital with a diagnosis of pneumonia and sepsis with head injury. Upon presentation the patient did have altered mental status with some confusion and agitation requiring treatment. When seen by myself the following morning she was calm and appeared fairly well oriented. She does give a history of having long- standing bronchial asthma but denies any prior history of pneumonia. She did admit to cough which was productive of a small amount of whitish sputum. She denied chest pain or hemoptysis. He denied being overtly short of breath. Further details of her medical history were obtained from the medical record. An initial venous blood gas showed a pH of 7.25 CO2 of 64 and a calculated O2 sat of only 41 on room air. A subsequent arterial blood gas done on supplemental oxygen via nasal cannula showed is PCO2 of 39 with a PaO2 of 97 and a pH of 7.40. Past Patient History - Past Medical History & Family History Past Medical History?: Yes - Past Social History Smoking Status: Former Smoker Chewing Tobacco Use: No Cigar Use: No Alcohol: None Drugs: Denies - CARDIAC Hx Congestive Heart Failure: Yes Hx Hypercholesterolemia: Yes Hx Hypertension: Yes - PULMONARY Hx Asthma: Yes Hx Bronchitis: Yes - NEUROLOGICAL Hx Neurological Disorder: No - HEENT Hx HEENT Problems: No - RENAL Hx Chronic Kidney Disease: No - ENDOCRINE/METABOLIC Hx Endocrine Disorders: No - HEMATOLOGICAL/ONCOLOGICAL Hx Blood Disorders: No - INTEGUMENTARY Hx Dermatological Problems: No - MUSCULOSKELETAL/RHEUMATOLOGICAL Hx Falls: Yes - GASTROINTESTINAL Hx Gastrointestinal Disorders: No Hx Pancreatitis: No - GENITOURINARY/GYNECOLOGICAL Hx Genitourinary Disorders: No - PSYCHIATRIC Hx Anxiety: Yes Hx Paranoia: Yes - SURGICAL HISTORY Hx Surgeries: No - ANESTHESIA Hx Anesthesia: Yes Hx Anesthesia Reactions: No Hx Malignant Hyperthermia: No Meds Allergies/Adverse Reactions: Allergies Allergy/AdvReac Type Severity Reaction Status Date / Time No Known Allergies Allergy Verified 05/14/18 12:11 - Medications Medications: Current Medications Albuterol/Ipratropium (Duoneb 3 Mg/0.5 Mg (3 Ml) Ud) 3 ml IH RQ4 [facility] Last Admin: 05/15/18 08:09 Dose: 3 ml Alendronate Sodium (Fosamax) 70 mg PO FR [facility] Aspirin (Aspirin Chewable) 81 mg PO DAILY [facility] Atorvastatin Calcium (Lipitor) 10 mg PO HS [facility] Carvedilol (Coreg) 3.125 mg PO Q12H [facility] Docusate Sodium (Colace) 100 mg PO BID [facility] Enalapril Maleate (Vasotec) 20 mg PO DAILY [facility] Ferrous Sulfate (Feosol) 325 mg PO TID [facility] Sodium Chloride (Sodium Chloride 0.9%) 1,000 mls @ 75 mls/hr IV .[id number] [facility] Stop: 05/16/18 02:20 Last Admin: 05/15/18 03:31 Dose: 75 mls/hr Metformin HCl (Glucophage) 500 mg PO BID [facility] Montelukast Sodium (Singulair) 10 mg PO HS [facility] Multivitamins/Minerals (Therapeutic-M Tab) 1 tab PO DAILY [facility] Pantoprazole Sodium (Protonix Ec Tab) 20 mg PO BID [facility] Paroxetine HCl (Paxil) 20 mg PO DAILY [facility] Simethicone (Mylicon Chew Tab) 80 mg PO TID [facility] Physical Exam - Additional Findings Additional findings: Thin, elderly female lying in bed on her left side. Responsive and cooperative with the examination. Pharynx is pink and mucous membranes are moist. Conjunctivae appear injected bilaterally. No scleral icterus. Nasal passages are patent bilaterally. Neck is supple and trachea appears midline. Unable to evaluate neck vein distention. No dullness on percussion of the anterior thorax. No subcutaneous emphysema. Breath sounds are heard equally in both lungs with scattered coarse rhonchi bilaterally. No audible wheezing. Medium to coarse rales are heard posteriorly in the area of the right upper lobe. Some bronchial breathing was also appreciated in the right upper lobe as well. Heart sounds appeared to be distant rhythm was regular. Abdomen appeared soft and nontender with normal bowel sounds. No dependent edema is noted of the right lower extremities. Surgical dressing is located in the area of the right ankle. Ankle and foot pulses are diminished but present bilaterally. No calf tenderness or palpable venous cords. No cyanosis. Results - Vital Signs Recent Vital Signs: Last Vital Signs Temp 97.8 F 05/15/18 04:40 Pulse 71 05/15/18 04:40 Resp 20 05/15/18 04:40 BP 144/82 05/15/18 04:40 Pulse Ox 99 05/15/18 04:40 - Labs Result Diagrams: 05/15/18 04:20 05/15/18 04:20 Labs: Laboratory Results - last 24 hr 05/14/18 05/14/18 05/14/18 12:17 13:35 13:35 WBC 10.2 D RBC 3.79 L Hgb 12.7 Hct 37.8 MCV 99.8 H D MCH 33.6 H MCHC 33.6 RDW 13.5 Plt Count 340 MPV 7.8 Neut % (Auto) 81.2 H Lymph % (Auto) 10.1 L [place] % (Auto) 6.1 Eos % (Auto) 2.3 Baso % (Auto) 0.3 Neut # (Auto) 8.2 H Lymph # (Auto) 1.0 [place] # (Auto) 0.6 Eos # (Auto) 0.2 Baso # (Auto) 0.0 pCO2 pO2 HCO3 ABG pH ABG Total CO2 ABG O2 Saturation ABG O2 Content ABG Base Excess ABG Hemoglobin ABG Carboxyhemoglobin POC ABG HHb (Measured) ABG Methemoglobin ABG O2 Capacity Campbell Test VBG pH VBG pCO2 VBG HCO3 VBG Total CO2 VBG O2 Sat (Calc) VBG Base Excess VBG Potassium A-a O2 Difference Hgb O2 Saturation Glucose Lactate FiO2 Sodium 126 L Potassium 4.6 Chloride 88 L Carbon Dioxide 25 Anion Gap 18 BUN 12 Creatinine 0.5 L Est GFR ( Amer) > 60 Est GFR (Non-Af Amer) > 60 POC Glucose (mg/dL) 221 H Random Glucose 212 H Calcium 9.2 Total Bilirubin 0.4 AST 34 ALT 27 Alkaline Phosphatase 87 Troponin I 0.0180 Total Protein 7.5 Albumin 4.6 Globulin 3.0 Albumin/Globulin Ratio 1.5 TSH 3rd Generation Venous Blood Potassium 05/14/18 05/14/18 05/15/18 16:40 20:36 04:20 WBC 8.5 RBC 3.31 L Hgb 11.0 L Hct 32.4 L MCV 97.9 MCH 33.3 H MCHC 34.0 RDW 13.5 Plt Count 279 MPV Neut % (Auto) Lymph % (Auto) [place] % (Auto) Eos % (Auto) Baso % (Auto) Neut # (Auto) Lymph # (Auto) [place] # (Auto) Eos # (Auto) Baso # (Auto) pCO2 39 pO2 24 L 97 HCO3 24.5 ABG pH 7.40 ABG Total CO2 25.4 ABG O2 Saturation 100.3 H ABG O2 Content 17.1 ABG Base Excess -0.5 ABG Hemoglobin 12.7 ABG Carboxyhemoglobin 2.7 H POC ABG HHb (Measured) -0.3 L ABG Methemoglobin 2.5 ABG O2 Capacity 17.0 Campbell Test Yes VBG pH 7.25 L VBG pCO2 64 H VBG HCO3 22.7 VBG Total CO2 30.1 H VBG O2 Sat (Calc) 40.6 VBG Base Excess -0.6 L VBG Potassium 4.6 A-a O2 Difference 82.0 Hgb O2 Saturation 95.1 Glucose 197 H Lactate 1.7 FiO2 21.0 32.0 Sodium 123.0 L Potassium Chloride 88.0 L Carbon Dioxide Anion Gap BUN Creatinine Est GFR ( Amer) Est GFR (Non-Af Amer) POC Glucose (mg/dL) Random Glucose Calcium Total Bilirubin AST ALT Alkaline Phosphatase Troponin I Total Protein Albumin Globulin Albumin/Globulin Ratio TSH 3rd Generation Venous Blood Potassium 4.6 05/15/18 04:20 WBC RBC Hgb Hct MCV MCH MCHC RDW Plt Count MPV Neut % (Auto) Lymph % (Auto) [place] % (Auto) Eos % (Auto) Baso % (Auto) Neut # (Auto) Lymph # (Auto) [place] # (Auto) Eos # (Auto) Baso # (Auto) pCO2 pO2 HCO3 ABG pH ABG Total CO2 ABG O2 Saturation ABG O2 Content ABG Base Excess ABG Hemoglobin ABG Carboxyhemoglobin POC ABG HHb (Measured) ABG Methemoglobin ABG O2 Capacity Campbell Test VBG pH VBG pCO2 VBG HCO3 VBG Total CO2 VBG O2 Sat (Calc) VBG Base Excess VBG Potassium A-a O2 Difference Hgb O2 Saturation Glucose Lactate FiO2 Sodium 128 L Potassium 4.2 Chloride 96 L Carbon Dioxide 24 Anion Gap 12 BUN 14 Creatinine 0.5 L Est GFR ( Amer) > 60 Est GFR (Non-Af Amer) > 60 POC Glucose (mg/dL) Random Glucose 144 H Calcium 8.1 L Total Bilirubin 0.2 AST 50 H D ALT 30 Alkaline Phosphatase 61 Troponin I Total Protein 6.0 L Albumin 3.4 L D Globulin 2.5 Albumin/Globulin Ratio 1.4 TSH 3rd Generation 1.73 Venous Blood Potassium Assessment & Plan (1) Pneumonia Status: Acute Priority: High (2) Pleural effusion Status: Suspected Priority: High (3) Hyponatremia Status: Acute Priority: High (4) Bronchial asthma Status: Chronic Priority: High - Assessment and Plan (Free Text) Plan: Agree with current medical management and supplemental oxygen. Sputum for culture and sensitivity requested. CT scan of the thorax to better evaluate possible pleural effusion and extent of the pneumonia, to be done without contrast. - Date & Time Date: 05/15/18 Time: 09:
--- NOTE | 2018-05-15 10:21 | CP.PCM.CON ---
History of Present Illness - History of Present Illness History of Present Illness: Consult note for Dr. You, 88 yo female seen at bedside for right ankle wound. Patient presented to the ED yesterday s/p fall, with possible pelvic injury. Unable to obtain history due to patients mental status. Patient is being seen by Dr. You for right ankle wound with grafts every week. No f/n/v/sob. Past Patient History - Past Medical History & Family History Past Medical History?: Yes - Past Social History Smoking Status: Never Smoked - CARDIAC Hx Cardiac Disorders: Yes Hx Congestive Heart Failure: Yes - PULMONARY Hx Respiratory Disorders: Yes Hx Asthma: Yes - NEUROLOGICAL Hx Neurological Disorder: No - HEENT Hx HEENT Problems: No - RENAL Hx Chronic Kidney Disease: No - ENDOCRINE/METABOLIC Hx Endocrine Disorders: No - HEMATOLOGICAL/ONCOLOGICAL Hx Blood Disorders: No - INTEGUMENTARY Hx Dermatological Problems: No - MUSCULOSKELETAL/RHEUMATOLOGICAL Hx Musculoskeletal Disorders: Yes Hx Falls: Yes - GASTROINTESTINAL Hx Gastrointestinal Disorders: No Hx Crohn's Disease: No Hx Diverticulitis: No Hx Gall Bladder Disease: No Hx Gastritis: No Hx Pancreatitis: No - GENITOURINARY/GYNECOLOGICAL Hx Genitourinary Disorders: No - PSYCHIATRIC Hx Psychophysiologic Disorder: Yes Hx Anxiety: Yes Hx Paranoia: Yes - SURGICAL HISTORY Hx Surgeries: No Hx Appendectomy: No Hx Carotid Endarterectomy: No Hx Cholecystectomy: No Hx Coronary Artery Bypass Graft: No Hx Coronary Stent: No Hx Tonsillectomy: No - ANESTHESIA Hx Anesthesia: Yes Hx Anesthesia Reactions: No Hx Malignant Hyperthermia: No Meds Allergies/Adverse Reactions: Allergies Allergy/AdvReac Type Severity Reaction Status Date / Time No Known Allergies Allergy Verified 05/14/18 12:11 - Medications Medications: Current Medications Albuterol/Ipratropium (Duoneb 3 Mg/0.5 Mg (3 Ml) Ud) 3 ml IH RQ4 [facility] Last Admin: 05/15/18 08:09 Dose: 3 ml Alendronate Sodium (Fosamax) 70 mg PO FR [facility] Aspirin (Aspirin Chewable) 81 mg PO DAILY [facility] Atorvastatin Calcium (Lipitor) 10 mg PO HS [facility] Carvedilol (Coreg) 3.125 mg PO Q12H [facility] Docusate Sodium (Colace) 100 mg PO BID [facility] Enalapril Maleate (Vasotec) 20 mg PO DAILY [facility] Ferrous Sulfate (Feosol) 325 mg PO TID [facility] Sodium Chloride (Sodium Chloride 0.9%) 1,000 mls @ 75 mls/hr IV .[id number] [facility] Stop: 05/16/18 02:20 Last Admin: 05/15/18 03:31 Dose: 75 mls/hr Metformin HCl (Glucophage) 500 mg PO BID [facility] Montelukast Sodium (Singulair) 10 mg PO HS [facility] Multivitamins/Minerals (Therapeutic-M Tab) 1 tab PO DAILY [facility] Pantoprazole Sodium (Protonix Ec Tab) 20 mg PO BID [facility] Paroxetine HCl (Paxil) 20 mg PO DAILY [facility] Simethicone (Mylicon Chew Tab) 80 mg PO TID [facility] Physical Exam - Constitutional Appears: Well, Non-toxic, No Acute Distress - Head Exam Head Exam: ATRAUMATIC - Extremities Exam Additional comments: Right lower extremity exam: vascular: dp/pt pulses palpable, CFT <3 secs x 5, Tg warm to cool, periwound erythema noted, no erythema otherwise, no edema noted neuro: unable to obtain derm: right medial malleolus wound with fibrogranular base noted measuring berenice roimately 2cm x 1.5cm, periwound erythema, minimal serous drainage noted on the dressing, no malodor, no clinical signs of infection ortho: minimal pain on palpation to the wound - Neurological Exam Neurological exam: Alert - Psychiatric Exam Psychiatric exam: Normal Affect - Skin Skin Exam: Normal Color Results - Vital Signs Recent Vital Signs: Last Vital Signs Temp 97.3 F L 05/15/18 09:00 Pulse 99 H 05/15/18 09:00 Resp 20 05/15/18 09:00 BP 179/85 H 05/15/18 09:00 Pulse Ox 96 05/15/18 09:00 - Labs Result Diagrams: 05/15/18 04:20 05/15/18 04:20 Labs: Laboratory Results - last 24 hr 05/14/18 05/14/18 05/14/18 12:17 13:35 13:35 WBC 10.2 D RBC 3.79 L Hgb 12.7 Hct 37.8 MCV 99.8 H D MCH 33.6 H MCHC 33.6 RDW 13.5 Plt Count 340 MPV 7.8 Neut % (Auto) 81.2 H Lymph % (Auto) 10.1 L [place] % (Auto) 6.1 Eos % (Auto) 2.3 Baso % (Auto) 0.3 Neut # (Auto) 8.2 H Lymph # (Auto) 1.0 [place] # (Auto) 0.6 Eos # (Auto) 0.2 Baso # (Auto) 0.0 pCO2 pO2 HCO3 ABG pH ABG Total CO2 ABG O2 Saturation ABG O2 Content ABG Base Excess ABG Hemoglobin ABG Carboxyhemoglobin POC ABG HHb (Measured) ABG Methemoglobin ABG O2 Capacity Campbell Test VBG pH VBG pCO2 VBG HCO3 VBG Total CO2 VBG O2 Sat (Calc) VBG Base Excess VBG Potassium A-a O2 Difference Hgb O2 Saturation Glucose Lactate FiO2 Sodium 126 L Potassium 4.6 Chloride 88 L Carbon Dioxide 25 Anion Gap 18 BUN 12 Creatinine 0.5 L Est GFR ( Amer) > 60 Est GFR (Non-Af Amer) > 60 POC Glucose (mg/dL) 221 H Random Glucose 212 H Calcium 9.2 Total Bilirubin 0.4 AST 34 ALT 27 Alkaline Phosphatase 87 Troponin I 0.0180 Total Protein 7.5 Albumin 4.6 Globulin 3.0 Albumin/Globulin Ratio 1.5 TSH 3rd Generation Venous Blood Potassium 05/14/18 05/14/18 05/15/18 16:40 20:36 04:20 WBC 8.5 RBC 3.31 L Hgb 11.0 L Hct 32.4 L MCV 97.9 MCH 33.3 H MCHC 34.0 RDW 13.5 Plt Count 279 MPV Neut % (Auto) Lymph % (Auto) [place] % (Auto) Eos % (Auto) Baso % (Auto) Neut # (Auto) Lymph # (Auto) [place] # (Auto) Eos # (Auto) Baso # (Auto) pCO2 39 pO2 24 L 97 HCO3 24.5 ABG pH 7.40 ABG Total CO2 25.4 ABG O2 Saturation 100.3 H ABG O2 Content 17.1 ABG Base Excess -0.5 ABG Hemoglobin 12.7 ABG Carboxyhemoglobin 2.7 H POC ABG HHb (Measured) -0.3 L ABG Methemoglobin 2.5 ABG O2 Capacity 17.0 Campbell Test Yes VBG pH 7.25 L VBG pCO2 64 H VBG HCO3 22.7 VBG Total CO2 30.1 H VBG O2 Sat (Calc) 40.6 VBG Base Excess -0.6 L VBG Potassium 4.6 A-a O2 Difference 82.0 Hgb O2 Saturation 95.1 Glucose 197 H Lactate 1.7 FiO2 21.0 32.0 Sodium 123.0 L Potassium Chloride 88.0 L Carbon Dioxide Anion Gap BUN Creatinine Est GFR ( Amer) Est GFR (Non-Af Amer) POC Glucose (mg/dL) Random Glucose Calcium Total Bilirubin AST ALT Alkaline Phosphatase Troponin I Total Protein Albumin Globulin Albumin/Globulin Ratio TSH 3rd Generation Venous Blood Potassium 4.6 05/15/18 04:20 WBC RBC Hgb Hct MCV MCH MCHC RDW Plt Count MPV Neut % (Auto) Lymph % (Auto) [place] % (Auto) Eos % (Auto) Baso % (Auto) Neut # (Auto) Lymph # (Auto) [place] # (Auto) Eos # (Auto) Baso # (Auto) pCO2 pO2 HCO3 ABG pH ABG Total CO2 ABG O2 Saturation ABG O2 Content ABG Base Excess ABG Hemoglobin ABG Carboxyhemoglobin POC ABG HHb (Measured) ABG Methemoglobin ABG O2 Capacity Campbell Test VBG pH VBG pCO2 VBG HCO3 VBG Total CO2 VBG O2 Sat (Calc) VBG Base Excess VBG Potassium A-a O2 Difference Hgb O2 Saturation Glucose Lactate FiO2 Sodium 128 L Potassium 4.2 Chloride 96 L Carbon Dioxide 24 Anion Gap 12 BUN 14 Creatinine 0.5 L Est GFR ( Amer) > 60 Est GFR (Non-Af Amer) > 60 POC Glucose (mg/dL) Random Glucose 144 H Calcium 8.1 L Total Bilirubin 0.2 AST 50 H D ALT 30 Alkaline Phosphatase 61 Troponin I Total Protein 6.0 L Albumin 3.4 L D Globulin 2.5 Albumin/Globulin Ratio 1.4 TSH 3rd Generation 1.73 Venous Blood Potassium Assessment & Plan - Assessment and Plan (Free Text) Assessment: 88 yo female seen at bedside for a stable right ankle wound Plan: Patient seen and evaluated Chart, labs and vitals reviewed Graft kept intact, dressing reinforced with adaptic/kerlix/coban Dressing not to be removed until 05/[address] You Podiatry will continue to follow the patient while in house Patient will follow up with Dr. You upon discharge
[2018-05-15] MEDS ORDERED: Albuterol-Ipratrop 3 mg / 0.5 (3 ml) UD INH STA (10:30)
--- NOTE | 2018-05-15 10:52 | CARD ---
APPROVED REPORT Date of service: 05/14/2018 EKG Measurement Heart [id number] <Conclusion> Sinus tachycardia with occasional premature ventricular complexes Septal infarct, age undetermined T wave abnormality, consider lateral ischemia Abnormal ECG
[2018-05-15] MEDS: Pantoprazole 20 mg EC Tab PO SCH ×2 (11:16→17:02)
[2018-05-15] MEDS: Multivitamin With Minerals Tab PO SCH (11:18)
[2018-05-15] MEDS: Simethicone 80 mg Chewtab PO SCH ×4 (11:18→21:59)
--- NOTE | 2018-05-15 12:03 | CP.PCM.CON ---
History of Present Illness - History of Present Illness History of Present Illness: This patient whole is 88 years of age female. I was called to see her for hyponatremia. This patient was admitted after fall and possible pelvic injury. No history available from the patient because of her mental status. Apparently this patient has been taken diuretics and recently has been stopped although no detail history available Past medical history as noted in the history . Social history not contributory at this point Review of Systems - Constitutional Constitutional: Anorexia. absent: Chills - EENT Eyes: absent: Exophthalmos - Breasts Breasts: Pain - Cardiovascular Cardiovascular: absent: Acrocyanosis, Chest Pain - Respiratory Respiratory: Chest Congestion. absent: Cough, Hemoptysis - Gastrointestinal Gastrointestinal: absent: Coffee Ground Emesis, Nausea - Genitourinary Genitourinary: Nocturia - Musculoskeletal Musculoskeletal: Back Pain - Neurological Neurological: Confusion - Psychiatric Psychiatric: As Per HPI - Endocrine Endocrine: Fatigue - Hematologic/Lymphatic Hematologic: absent: Easy Bleeding Past Patient History - Past Medical History & Family History Past Medical History?: Yes - Past Social History Smoking Status: Never Smoked - CARDIAC Hx Cardiac Disorders: Yes Hx Congestive Heart Failure: Yes - PULMONARY Hx Respiratory Disorders: Yes Hx Asthma: Yes - NEUROLOGICAL Hx Neurological Disorder: No - HEENT Hx HEENT Problems: No - RENAL Hx Chronic Kidney Disease: No - ENDOCRINE/METABOLIC Hx Endocrine Disorders: No - HEMATOLOGICAL/ONCOLOGICAL Hx Blood Disorders: No - INTEGUMENTARY Hx Dermatological Problems: No - MUSCULOSKELETAL/RHEUMATOLOGICAL Hx Musculoskeletal Disorders: Yes Hx Falls: Yes - GASTROINTESTINAL Hx Gastrointestinal Disorders: No Hx Crohn's Disease: No Hx Diverticulitis: No Hx Gall Bladder Disease: No Hx Gastritis: No Hx Pancreatitis: No - GENITOURINARY/GYNECOLOGICAL Hx Genitourinary Disorders: No - PSYCHIATRIC Hx Psychophysiologic Disorder: Yes Hx Anxiety: Yes Hx Paranoia: Yes - SURGICAL HISTORY Hx Surgeries: No Hx Appendectomy: No Hx Carotid Endarterectomy: No Hx Cholecystectomy: No Hx Coronary Artery Bypass Graft: No Hx Coronary Stent: No Hx Tonsillectomy: No - ANESTHESIA Hx Anesthesia: Yes Hx Anesthesia Reactions: No Hx Malignant Hyperthermia: No Meds Allergies/Adverse Reactions: Allergies Allergy/AdvReac Type Severity Reaction Status Date / Time No Known Allergies Allergy Verified 05/14/18 12:11 - Medications Medications: Current Medications Albuterol/Ipratropium (Duoneb 3 Mg/0.5 Mg (3 Ml) Ud) 3 ml IH RQ4 [facility] Last Admin: 05/15/18 11:46 Dose: 3 ml Alendronate Sodium (Fosamax) 70 mg PO FR [facility] Last Admin: 05/15/18 11:17 Dose: 70 mg Aspirin (Aspirin Chewable) 81 mg PO DAILY [facility] Last Admin: 05/15/18 11:16 Dose: 81 mg Atorvastatin Calcium (Lipitor) 10 mg PO [facility] Carvedilol (Coreg) 3.125 mg PO Q12H [facility] Last Admin: 05/15/18 11:17 Dose: 3.125 mg Docusate Sodium (Colace) 100 mg PO BID [facility] Last Admin: 05/15/18 11:17 Dose: 100 mg Enalapril Maleate (Vasotec) 20 mg PO DAILY [facility] Last Admin: 05/15/18 11:18 Dose: 20 mg Ferrous Sulfate (Feosol) 325 mg PO TID [facility] Last Admin: 05/15/18 11:16 Dose: 325 mg Sodium Chloride (Sodium Chloride 0.9%) 1,000 mls @ 75 mls/hr IV .[id number] [facility] Stop: 05/16/18 02:20 Last Admin: 05/15/18 03:31 Dose: 75 mls/hr Azithromycin 500 mg/ Sodium (Chloride) 250 mls @ 250 mls/hr IVPB DAILY [facility]; Protocol Ceftriaxone Sodium 1 gm/ (Sodium Chloride) 100 mls @ 100 mls/hr IVPB DAILY [facility]; Protocol Metformin HCl (Glucophage) 500 mg PO BID [facility] Montelukast Sodium (Singulair) 10 mg PO [facility] Multivitamins/Minerals (Therapeutic-M Tab) 1 tab PO DAILY [facility] Last Admin: 05/15/18 11:18 Dose: 1 tab Pantoprazole Sodium (Protonix Ec Tab) 20 mg PO BID [facility] Last Admin: 05/15/18 11:16 Dose: 20 mg Paroxetine HCl (Paxil) 20 mg PO DAILY [facility] Last Admin: 05/15/18 11:16 Dose: 20 mg Simethicone (Mylicon Chew Tab) 80 mg PO TID [facility] Last Admin: 05/15/18 11:18 Dose: 80 mg Physical Exam - Constitutional Appears: No Acute Distress - Eye Exam Eye Exam: Conjunctival injection - ENT Exam ENT Exam: Mucous Membranes Moist - Neck Exam Neck exam: Negative for: Lymphadenopathy - Respiratory Exam Respiratory Exam: NORMAL BREATHING PATTERN. absent: Chest Wall Tenderness - Cardiovascular Exam Cardiovascular Exam: absent: Gallop, JVD, Rubs - GI/Abdominal Exam GI & Abdominal Exam: Normal Bowel Sounds. absent: Guarding - Extremities Exam Extremities exam: Negative for: calf tenderness, pedal edema - Back Exam Back exam: absent: CVA tenderness (L), CVA tenderness (R) - Neurological Exam Neurological exam: Altered - Psychiatric Exam Psychiatric exam: Flat Affect Results - Vital Signs Recent Vital Signs: Last Vital Signs Temp 97.3 F L 05/15/18 09:00 Pulse 99 H 05/15/18 09:00 Resp 20 05/15/18 09:00 BP 179/85 H 05/15/18 09:00 Pulse Ox 96 05/15/18 09:00 - Labs Result Diagrams: 05/15/18 04:20 05/15/18 04:20 Labs: Laboratory Results - last 24 hr 05/14/18 05/14/18 05/14/18 12:17 13:35 13:35 WBC 10.2 D RBC 3.79 L Hgb 12.7 Hct 37.8 MCV 99.8 H D MCH 33.6 H MCHC 33.6 RDW 13.5 Plt Count 340 MPV 7.8 Neut % (Auto) 81.2 H Lymph % (Auto) 10.1 L [place] % (Auto) 6.1 Eos % (Auto) 2.3 Baso % (Auto) 0.3 Neut # (Auto) 8.2 H Lymph # (Auto) 1.0 [place] # (Auto) 0.6 Eos # (Auto) 0.2 Baso # (Auto) 0.0 pCO2 pO2 HCO3 ABG pH ABG Total CO2 ABG O2 Saturation ABG O2 Content ABG Base Excess ABG Hemoglobin ABG Carboxyhemoglobin POC ABG HHb (Measured) ABG Methemoglobin ABG O2 Capacity Campbell Test VBG pH VBG pCO2 VBG HCO3 VBG Total CO2 VBG O2 Sat (Calc) VBG Base Excess VBG Potassium A-a O2 Difference Hgb O2 Saturation Glucose Lactate FiO2 Sodium 126 L Potassium 4.6 Chloride 88 L Carbon Dioxide 25 Anion Gap 18 BUN 12 Creatinine 0.5 L Est GFR ( Amer) > 60 Est GFR (Non-Af Amer) > 60 POC Glucose (mg/dL) 221 H Random Glucose 212 H Calcium 9.2 Total Bilirubin 0.4 AST 34 ALT 27 Alkaline Phosphatase 87 Troponin I 0.0180 Total Protein 7.5 Albumin 4.6 Globulin 3.0 Albumin/Globulin Ratio 1.5 TSH 3rd Generation Venous Blood Potassium 05/14/18 05/14/18 05/15/18 16:40 20:36 04:20 WBC 8.5 RBC 3.31 L Hgb 11.0 L Hct 32.4 L MCV 97.9 MCH 33.3 H MCHC 34.0 RDW 13.5 Plt Count 279 MPV Neut % (Auto) Lymph % (Auto) [place] % (Auto) Eos % (Auto) Baso % (Auto) Neut # (Auto) Lymph # (Auto) [place] # (Auto) Eos # (Auto) Baso # (Auto) pCO2 39 pO2 24 L 97 HCO3 24.5 ABG pH 7.40 ABG Total CO2 25.4 ABG O2 Saturation 100.3 H ABG O2 Content 17.1 ABG Base Excess -0.5 ABG Hemoglobin 12.7 ABG Carboxyhemoglobin 2.7 H POC ABG HHb (Measured) -0.3 L ABG Methemoglobin 2.5 ABG O2 Capacity 17.0 Campbell Test Yes VBG pH 7.25 L VBG pCO2 64 H VBG HCO3 22.7 VBG Total CO2 30.1 H VBG O2 Sat (Calc) 40.6 VBG Base Excess -0.6 L VBG Potassium 4.6 A-a O2 Difference 82.0 Hgb O2 Saturation 95.1 Glucose 197 H Lactate 1.7 FiO2 21.0 32.0 Sodium 123.0 L Potassium Chloride 88.0 L Carbon Dioxide Anion Gap BUN Creatinine Est GFR ( Amer) Est GFR (Non-Af Amer) POC Glucose (mg/dL) Random Glucose Calcium Total Bilirubin AST ALT Alkaline Phosphatase Troponin I Total Protein Albumin Globulin Albumin/Globulin Ratio TSH 3rd Generation Venous Blood Potassium 4.6 05/15/18 04:20 WBC RBC Hgb Hct MCV MCH MCHC RDW Plt Count MPV Neut % (Auto) Lymph % (Auto) [place] % (Auto) Eos % (Auto) Baso % (Auto) Neut # (Auto) Lymph # (Auto) [place] # (Auto) Eos # (Auto) Baso # (Auto) pCO2 pO2 HCO3 ABG pH ABG Total CO2 ABG O2 Saturation ABG O2 Content ABG Base Excess ABG Hemoglobin ABG Carboxyhemoglobin POC ABG HHb (Measured) ABG Methemoglobin ABG O2 Capacity Campbell Test VBG pH VBG pCO2 VBG HCO3 VBG Total CO2 VBG O2 Sat (Calc) VBG Base Excess VBG Potassium A-a O2 Difference Hgb O2 Saturation Glucose Lactate FiO2 Sodium 128 L Potassium 4.2 Chloride 96 L Carbon Dioxide 24 Anion Gap 12 BUN 14 Creatinine 0.5 L Est GFR ( Amer) > 60 Est GFR (Non-Af Amer) > 60 POC Glucose (mg/dL) Random Glucose 144 H Calcium 8.1 L Total Bilirubin 0.2 AST 50 H D ALT 30 Alkaline Phosphatase 61 Troponin I Total Protein 6.0 L Albumin 3.4 L D Globulin 2.5 Albumin/Globulin Ratio 1.4 TSH 3rd Generation 1.73 Venous Blood Potassium Assessment & Plan (1) Hyponatremia Assessment and Plan: Hyponatremia serum sodium 126 has gone up to 128 after given some sodium chloride so far. Differential diagnosis also hyponatremia most likely related either to diuretics previously or possibly patient and she could have developed acute SIADH from the trauma and the pain in addition patient taking Paxil. My recommendation In either case SIADH or diuretics induced hyponatremia, suggest to give normal saline 75 mL/h patient appeared to be dry and repeat BMP tomorrow morning. Stat spot urine for sodium osmolality and creatinine. Continue monitoring. Status: Acute (2) Contusion, hip Status: Acute
--- NOTE | 2018-05-15 12:08 | PN ---
DATE: 05/15/2018 SUBJECTIVE: The patient is lying on the bed, in mild respiratory distress. PHYSICAL EXAMINATION: VITAL SIGNS: Her blood pressure is 179/85, heart rate is 99 per minute, breathing at the rate of 20 per minute, and temperature is 97.3 degrees Fahrenheit. HEENT: Head is normocephalic and atraumatic. NECK: Supple. There are no carotid bruits. LUNGS: Mild rhonchi noticed bilaterally. ABDOMEN: Soft and nontender. Bowel sounds are present. NEUROLOGIC: Mental status: The patient is awake. She follows all simple commands. She is oriented to place as hospital. Year is 2017, month is July. Her speech is slightly dysarthric. Cranial nerve: Pupils are 3 mm bilaterally, reactive to light. Extraocular movements are intact. There is no facial asymmetry. Motor: Tone is normal. Power appears to be 4/5, although she is moving all four extremities symmetrically. Plantars are downgoing bilaterally. LABORATORY DATA: Labs reviewed and showed WBC 8.5, hemoglobin 11, hematocrit 32.4, and platelets of 279. Sodium is 128, potassium 4.2, chloride 96, carbon dioxide content of 24, BUN of 14, creatinine 0.5, and glucose of 144. Her TSH is 1.73. IMPRESSION: 1. Altered mental status, which appears to be secondary to toxic metabolic encephalopathy. 2. Status post fall. 3. Possible pneumonia. 4. Hyponatremia. RECOMMENDATIONS: 1. The patient to have an electroencephalogram. 2. The patient's mental status is better than last night; however, still she is little confused. 3. The patient to be continued on IV antibiotics. 4. The patient to have serum vitamin B12 level done. 5. Once the patient's mental status is better, the patient is to have physical therapy for gait imbalance. 6. Hyponatremia is slightly better. 7. Please continue supportive care and other treatment. Thank you for the opportunity to participate in the care of this patient. Bonifacio Patel MD
[2018-05-15] MEDS: Azithromycin 500 MG in Sodium Chloride 0.9% 250 ML IVPB SCH (13:58)
--- NOTE | 2018-05-15 16:57 | CP.PCM.HP ---
History of Present Illness - History of Present Illness History of Present Illness: 88 yo admitted for fall, change in mental status and abnormal CXR Present on Admission - Present on Admission Any Indicators Present on Admission: No Past Patient History - Past Medical History & Family History Past Medical History?: Yes - Past Social History Smoking Status: Never Smoked - CARDIAC Hx Cardiac Disorders: Yes Hx Congestive Heart Failure: Yes - PULMONARY Hx Respiratory Disorders: Yes Hx Asthma: Yes - NEUROLOGICAL Hx Neurological Disorder: No - HEENT Hx HEENT Problems: No - RENAL Hx Chronic Kidney Disease: No - ENDOCRINE/METABOLIC Hx Endocrine Disorders: No - HEMATOLOGICAL/ONCOLOGICAL Hx Blood Disorders: No - INTEGUMENTARY Hx Dermatological Problems: No - MUSCULOSKELETAL/RHEUMATOLOGICAL Hx Musculoskeletal Disorders: Yes Hx Falls: Yes - GASTROINTESTINAL Hx Gastrointestinal Disorders: No Hx Crohn's Disease: No Hx Diverticulitis: No Hx Gall Bladder Disease: No Hx Gastritis: No Hx Pancreatitis: No - GENITOURINARY/GYNECOLOGICAL Hx Genitourinary Disorders: No - PSYCHIATRIC Hx Psychophysiologic Disorder: Yes Hx Anxiety: Yes Hx Paranoia: Yes - SURGICAL HISTORY Hx Surgeries: No Hx Appendectomy: No Hx Carotid Endarterectomy: No Hx Cholecystectomy: No Hx Coronary Artery Bypass Graft: No Hx Coronary Stent: No Hx Tonsillectomy: No - ANESTHESIA Hx Anesthesia: Yes Hx Anesthesia Reactions: No Hx Malignant Hyperthermia: No Meds Allergies/Adverse Reactions: Allergies Allergy/AdvReac Type Severity Reaction Status Date / Time No Known Allergies Allergy Verified 05/14/18 12:11 Physical Exam - Respiratory Exam Respiratory Exam: NORMAL BREATHING PATTERN - Cardiovascular Exam Cardiovascular Exam: REGULAR RHYTHM - GI/Abdominal Exam GI & Abdominal Exam: Normal Bowel Sounds Results - Vital Signs Recent Vital Signs: Last Vital Signs Temp 97.8 F 05/15/18 16:36 Pulse 102 H 05/15/18 16:36 Resp 22 05/15/18 16:36 BP 152/81 H 05/15/18 16:36 Pulse Ox 96 05/15/18 16:36 - Labs Result Diagrams: 05/15/18 04:20 05/15/18 04:20 Labs: Laboratory Results - last 24 hr 05/14/18 05/15/18 05/15/18 20:36 04:20 04:20 WBC 8.5 RBC 3.31 L Hgb 11.0 L Hct 32.4 L MCV 97.9 MCH 33.3 H MCHC 34.0 RDW 13.5 Plt Count 279 pCO2 39 pO2 97 HCO3 24.5 ABG pH 7.40 ABG Total CO2 25.4 ABG O2 Saturation 100.3 H ABG O2 Content 17.1 ABG Base Excess -0.5 ABG Hemoglobin 12.7 ABG Carboxyhemoglobin 2.7 H POC ABG HHb (Measured) -0.3 L ABG Methemoglobin 2.5 ABG O2 Capacity 17.0 Campbell Test Yes A-a O2 Difference 82.0 Hgb O2 Saturation 95.1 FiO2 32.0 Sodium 128 L Potassium 4.2 Chloride 96 L Carbon Dioxide 24 Anion Gap 12 BUN 14 Creatinine 0.5 L Est GFR ( Amer) > 60 Est GFR (Non-Af Amer) > 60 Random Glucose 144 H Calcium 8.1 L Total Bilirubin 0.2 AST 50 H D ALT 30 Alkaline Phosphatase 61 Total Protein 6.0 L Albumin 3.4 L D Globulin 2.5 Albumin/Globulin Ratio 1.4 Vitamin B12 TSH 3rd Generation 1.73 05/15/18 11:38 WBC RBC Hgb Hct MCV MCH MCHC RDW Plt Count pCO2 pO2 HCO3 ABG pH ABG Total CO2 ABG O2 Saturation ABG O2 Content ABG Base Excess ABG Hemoglobin ABG Carboxyhemoglobin POC ABG HHb (Measured) ABG Methemoglobin ABG O2 Capacity Campbell Test A-a O2 Difference Hgb O2 Saturation FiO2 Sodium Potassium Chloride Carbon Dioxide Anion Gap BUN Creatinine Est GFR ( Amer) Est GFR (Non-Af Amer) Random Glucose Calcium Total Bilirubin AST ALT Alkaline Phosphatase Total Protein Albumin Globulin Albumin/Globulin Ratio Vitamin B12 946 H TSH 3rd Generation Assessment & Plan - Assessment and Plan (Free Text) Assessment: Fall etiol?? Telemetry Neuro cardilogy COPD ??? CXR ?? 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
[2018-05-16] MEDS: Albuterol-Ipratrop 3 mg / 0.5 (3 ml) UD IH SCH ×2 (03:39→07:18)
[2018-05-16] MEDS: Multivitamin With Minerals Tab PO SCH (08:36)
[2018-05-16] MEDS: Simethicone 80 mg Chewtab PO SCH ×3 (08:36→17:30)
[2018-05-16] MEDS: Pantoprazole 20 mg EC Tab PO SCH ×2 (08:37→17:31)
[2018-05-16] MEDS: Azithromycin 500 MG in Sodium Chloride 0.9% 250 ML IVPB SCH (08:40)
[2018-05-16] MEDS ORDERED: Sodium Chloride 3% for Inhalation 4 ML VIAL.NEB IH PRN (09:45)
[2018-05-16 10:16] LABS: BASO # 0.1 K/uL (0.0-0.2); EOS # 0.1 K/uL (0.0-0.7); EOS % 1.3 % (0.0-4.0); HEMOGLOBIN 10.9 g/dL (12.0-16.0); LYMPH # 1.6 K/uL (1.0-4.3); LYMPH % 18.5 % (20.0-40.0); MEAN CELL VOLUME 100.6 fl (81.0-99.0); MEAN CORPUSCULAR HEMOGLOBIN 33.3 pg (27.0-31.0); MEAN CORPUSCULAR HGB CONC 33.1 g/dL (33.0-37.0); MEAN PLATELET VOLUME 7.7 fl (7.2-11.7); MONO # 0.8 K/uL (0.0-0.8); MONO % 9.4 % (0.0-10.0); NEUT # 5.9 K/uL (1.8-7.0); NEUT % 69.8 % (50.0-75.0); NRBC % 0.1 % (0.0-0.0); RBC 3.26 Mil/uL (3.80-5.20); RED CELL DISTRIBUTION WIDTH 13.9 % (11.5-14.5); WHITE BLOOD COUNT 8.5 K/uL (4.8-10.8)
--- NOTE | 2018-05-16 11:34 | CP.PCM.PN ---
Subjective - Date & Time of Evaluation Date of Evaluation: 05/16/18 Time of Evaluation: 11:31 - Subjective Subjective: Seen on rounds in telemetry. Lying supine in bed w/o SOB. Does admit to cough, but states no sputum. No c/o chest pain. CT chest reviewed: bilateral pleural effusions (R>L), patchy pneumonia on right, left infra-hilar mass vs pneumonia. Labs reviewed: no leukocytosis, mildly anemic, ++BNP, + troponin. On exam faint high-pitched E wheezes are heard centrally and on the right. Breath sounds are diminished bilaterally, especially posteriorly in the bases. Scattered medium rales present posteriorly on the right. Heart sounds are distant regular with PHBs. No dependant edema or cyanosis, right ankle/distal calf dressing intact. Pneumonia, pleural effusion, r/o LLL mass. Positive troponins. Bronchial asthma by history. Repeat EKG. Avoid beta-adrenergics if possible. Cardiology on consult. Treat for CAP/atypicals. Objective - Vital Signs/Intake and Output Vital Signs (last 24 hours): Temp Pulse Resp BP Pulse Ox 97.6 F 94 H 18 184/95 H 98 05/16/18 08:12 05/16/18 08:12 05/16/18 08:12 05/16/18 08:12 05/16/18 08:12 - Medications Medications: Current Medications Alendronate Sodium (Fosamax) 70 mg PO FR [facility] Last Admin: 05/15/18 11:17 Dose: 70 mg Aspirin (Aspirin Chewable) 81 mg PO DAILY [facility] Last Admin: 05/16/18 08:42 Dose: 81 mg Atorvastatin Calcium (Lipitor) 10 mg PO HS [facility] Last Admin: 05/15/18 21:59 Dose: 10 mg Carvedilol (Coreg) 6.25 mg PO BID [facility] Docusate Sodium (Colace) 100 mg PO BID [facility] Last Admin: 05/15/18 17:02 Dose: 100 mg Enalapril Maleate (Vasotec) 20 mg PO DAILY [facility] Last Admin: 05/16/18 08:36 Dose: 20 mg Ferrous Sulfate (Feosol) 325 mg PO TID [facility] Last Admin: 05/15/18 17:02 Dose: 325 mg Azithromycin 500 mg/ Sodium (Chloride) 250 mls @ 250 mls/hr IVPB DAILY [facility]; Protocol Last Admin: 05/16/18 08:40 Dose: 250 mls/hr Ceftriaxone Sodium 1 gm/ (Sodium Chloride) 100 mls @ 100 mls/hr IVPB DAILY [facility]; Protocol Last Admin: 05/16/18 08:39 Dose: 100 mls/hr Ipratropium [place] (Atrovent) 0.5 mg IH RQ6 [facility] Levalbuterol HCl (Xopenex) 0.63 mg INH RQ8 PRN PRN Reason: Wheezing Metformin HCl (Glucophage) 500 mg PO BID [facility] Last Admin: 05/16/18 08:37 Dose: 500 mg Montelukast Sodium (Singulair) 10 mg PO HS [facility] Last Admin: 05/15/18 21:59 Dose: 10 mg Multivitamins/Minerals (Therapeutic-M Tab) 1 tab PO DAILY [facility] Last Admin: 05/16/18 08:36 Dose: 1 tab Pantoprazole Sodium (Protonix Ec Tab) 20 mg PO BID [facility] Last Admin: 05/16/18 08:37 Dose: 20 mg Paroxetine HCl (Paxil) 20 mg PO DAILY [facility] Last Admin: 05/16/18 08:37 Dose: 20 mg Simethicone (Mylicon Chew Tab) 80 mg PO TID [facility] Last Admin: 05/16/18 08:36 Dose: 80 mg - Labs Labs: 05/16/18 09:50 05/15/18 04:20 Assessment and Plan (1) Pneumonia Status: Acute (2) Pleural effusion Status: Suspected (3) Hyponatremia Status: Acute (4) Bronchial asthma Status: Chronic
[2018-05-16 11:49] LABS: CREATININE, RANDOM URINE 72.7 mg/dL
[2018-05-16] MEDS: Levalbuterol 0.63 MG/3 ML Inhal Soln UD INH PRN (11:52)
[2018-05-16 12:04] LABS: SQUAMOUS EPITHIAL 3 /hpf (0-5); URINE BILIRUBIN NEGATIVE (NEGATIVE); URINE BLOOD NEGATIVE (NEGATIVE); URINE CLARITY CLOUDY (Clear); URINE COLOR YELLOW (YELLOW); URINE GLUCOSE (UA) 50 mg/dL (Normal); URINE LEUKOCYTE ESTERASE NEG Leu/uL (Negative); URINE PROTEIN NEGATIVE (NEGATIVE); URINE UROBILINOGEN 0.2-1.0 mg/dL (0.2-1.0)
--- NOTE | 2018-05-16 12:08 | CT ---
Date of service: 05/15/2018 PROCEDURE: CT Chest without contrast HISTORY: cough COMPARISON: 2014 CT scan. Chest x-ray 11 18 TECHNIQUE: Contiguous axial images were obtained through the chest without intravenous contrast enhancement. Sagittal and coronal reconstructions were performed. Radiation dose: Total exam DLP = 376.64 mGy-cm. This CT exam was performed using one or more of the following dose reduction techniques: Automated exposure control, adjustment of the mA and/or kV according to patient size, and/or use of iterative reconstruction technique. FINDINGS: LUNGS: There is evidence of patchy areas of alveolar density centrally with lesser degree peripherally. This is greater in the right lung. Findings may be related to alveolar edema and/or nonspecific infectious or inflammatory process. The former is felt to be more likely given moderate bilateral pleural effusions. Tiny calcified granuloma is seen in the right lung. No other pulmonary nodules are noted, although limited by the areas of atelectasis and effusion. Patchy area of infiltrate in the right upper lobe is more than likely related to alveolar edema and CHF. MEDIASTINUM: There is moderate calcific atherosclerotic change of the aortic arch and descending thoracic aorta as well as the proximal ascending aorta. No aneurysmal dilatation is seen. Heart is in mildly to moderately enlarged with aortic and mitral valvular calcification noted. Pulmonary arteries appear enlarged consistent with pulmonary artery hypertension. No significant pericardial effusion is seen. Small scattered mediastinal lymph nodes are noted in the right paratracheal and precarinal region as well as the prevascular region, nonspecific. Moderate mural calcification of the aorta. PLEURA: Moderate bilateral pleural effusions. No pneumothorax. Compressive atelectasis adjacent to the pleural effusions. BONES: There is chronic compression deformity noted in the lower thoracic spine region. Degenerative changes are seen elsewhere in the spine. No appreciable acute rib fracture is noted. UPPER ABDOMEN: Limited by the lack of contrast. No adrenal enlargement is seen. Moderate calcification is seen in the abdominal aorta without aneurysmal dilatation. Visualized pancreas, liver, and spleen are otherwise unremarkable. Gallbladder is suboptimally identified due to motion. OTHER FINDINGS: None. IMPRESSION: Moderate bilateral effusions as well as areas of patchy edema or ground-glass bilaterally, greater on the right which probably suggest alveolar edema and CHF but should be correlated clinically. This agrees with preliminary report.
[2018-05-16 12:17] LABS: BLOOD UREA NITROGEN 9 mg/dl (7-17); CALCIUM 8.4 mg/dL (8.4-10.2); GFR NON-AFRICAN AMERICAN > 60
[2018-05-16] MEDS: Ipratropium 0.02% Inhal Soln (0.5 mg/2.5 ml) UD IH SCH ×2 (13:04→19:12)
[2018-05-16 14:18] LABS: URINE BACTERIA FEW (<OCC)
--- NOTE | 2018-05-16 16:11 | CP.PCM.PN ---
Subjective - Date & Time of Evaluation Date of Evaluation: 05/16/18 Time of Evaluation: 16:08 - Subjective Subjective: Nephrology Consultation Note Assessment: Stable hypervolemic hyponatremia likely due to CHF uncontrolled HTN ? NSTEMI Pneumonia Fall, DM, HTN, hyperlipidemia, anemia Plan No acute need for renal replacement therapy at this time. Hypertension control with meds as ordered. Maintain hemodynamics stable. Avoid hypotension. increased enalapril to 20 bid. also increased coreg Monitor Input/Output, daily weights and renal function with basic metabolic panel agree with lasix continue with iron for anemia check UA, urine Na/Osmol Glycemic control Further work up for as per primary team Thanks for allowing me to participate in care of your patient. Will follow patient with you. Please call if any Qs Dr Alvaro Chandler Office: [phone] Subjective: Noted events overnight. Patients feels okay. Denies chest pain, palpitation, shortness of breath, leg swelling. All other negative Physical Examination: General Appearance: Comfortable, in no acute respiratory distress, co-operative . Vitals reviewed and noted as below Head; Atraumatic, normocephalic ENT: no ulcers no thrush. Tongue is midline. Oropharynx: no rash or ulcers. EYES: Pupils are equal, round and reactive to light accommodation. Eye muscles and extraocular movement intact. Sclera is anicteric. Neck; supple no lymphadenopathy, no thyromegaly or bruit Lungs: Normal respiratory rate/effort. Breath sounds bilateral decreased at base s with crackles Heart: Normal rate. s1s2 normal. No rub or gallop. Extremities: no edema. No varicose veins. left ankle dressing + hx of skin graft Neurological: Patient is alert, awake and oriented to person, place and time. No focal deficit. Strength bilateral appropriate and equal Skin: Warm and dry. Normal turgor. No rash. Palpitation: Normal elasticity for age Abdomen: Abdomen is soft. Bowel sounds +. There is no abdominal tenderness, no guarding/rigidity no organomegaly Psych: limited insight and normal affect/mood MSK: no joint tenderness or swelling. Digits and nails normal, no deformity : kidney or bladder not palpable Labs/imaging reviewed. Past medical history, past surgical history, family history, social history, allergy reviewed and noted as below Family hx: no hx of CKD. Rest non-contributory Objective - Vital Signs/Intake and Output Vital Signs (last 24 hours): Temp Pulse Resp BP Pulse Ox 98.3 F 85 17 178/97 H 98 05/16/18 16:02 05/16/18 16:02 05/16/18 16:02 05/16/18 16:02 05/16/18 16:02 - Medications Medications: Current Medications Alendronate Sodium (Fosamax) 70 mg PO FR [facility] Last Admin: 05/15/18 11:17 Dose: 70 mg Aspirin (Aspirin Chewable) 81 mg PO DAILY [facility] Last Admin: 05/16/18 08:42 Dose: 81 mg Atorvastatin Calcium (Lipitor) 20 mg PO DAILY [facility] Carvedilol (Coreg) 6.25 mg PO BID [facility] Last Admin: 05/16/18 13:03 Dose: Not Given Docusate Sodium (Colace) 100 mg PO BID [facility] Last Admin: 05/16/18 13:03 Dose: Not Given Enalapril Maleate (Vasotec) 20 mg PO BID [facility] Ferrous Sulfate (Feosol) 325 mg PO TID [facility] Last Admin: 05/16/18 13:04 Dose: Not Given Furosemide (Lasix) 20 mg PO DAILY [facility] Azithromycin 500 mg/ Sodium (Chloride) 250 mls @ 250 mls/hr IVPB DAILY [facility]; Protocol Last Admin: 05/16/18 08:40 Dose: 250 mls/hr Ceftriaxone Sodium 1 gm/ (Sodium Chloride) 100 mls @ 100 mls/hr IVPB DAILY [facility]; Protocol Last Admin: 05/16/18 08:39 Dose: 100 mls/hr Ipratropium [place] (Atrovent) 0.5 mg IH RQ6 [facility] Last Admin: 05/16/18 13:04 Dose: 0.5 mg Levalbuterol HCl (Xopenex) 0.63 mg INH RQ8 PRN PRN Reason: Wheezing Last Admin: 05/16/18 11:52 Dose: 0.63 mg Metformin HCl (Glucophage) 500 mg PO BID [facility] Last Admin: 05/16/18 08:37 Dose: 500 mg Montelukast Sodium (Singulair) 10 mg PO HS [facility] Last Admin: 05/15/18 21:59 Dose: 10 mg Multivitamins/Minerals (Therapeutic-M Tab) 1 tab PO DAILY [facility] Last Admin: 05/16/18 08:36 Dose: 1 tab Nitroglycerin (Nitro-Bid 2% Oint) 0.5 ea TOP Q6 [facility] Pantoprazole Sodium (Protonix Ec Tab) 20 mg PO BID [facility] Last Admin: 05/16/18 08:37 Dose: 20 mg Paroxetine HCl (Paxil) 20 mg PO DAILY [facility] Last Admin: 05/16/18 08:37 Dose: 20 mg Simethicone (Mylicon Chew Tab) 80 mg PO TID [facility] Last Admin: 05/16/18 13:10 Dose: 80 mg - Labs Labs: 05/16/18 09:50 05/16/18 09:50
--- NOTE | 2018-05-16 16:21 | CP.PCM.CON ---
History of Present Illness - History of Present Illness History of Present Illness: THE PATIENT IS AN 88 YEAR OLD FEMALE WHO WAS ADMITTED TO [facility] 2 DAYS AGO FOLLOWING A FALL AND FOUND TO HAVE PNEUMONIA. SHE ALSO HAS A HISTORY OF HYPERTENSION, COPD, HYPERLIPIDEMIA AND TYPE 2 DM. SHE IS NOT A GREAT HISTORIAN BUT DENIES ANY KNOWN HEART PROBLEMS IN THE PAST. SHE HAD A TIA 16 MONTHS AGO. I WAS CALLED TO SEE HER DUE TO AN ELEVATED PBNP. I ORDERED A TROPONIN AND IT WAS ELEVATED. SHE DENIES ANY CHEST PAIN, PALPITATIONS OR EVEN SOB TO ME. SHE HAD BILATERAL HIP SURGERY AND IS UNSTEADY ON HER FEET AND USES A WALKER AND STATES THAT SHE FEE DUE TO THIS AND DENIES SYNCOPE OR NEAR SYNCOPE. Past Patient History - Past Medical History & Family History Past Medical History?: Yes - Past Social History Smoking Status: Former Smoker Chewing Tobacco Use: No Cigar Use: No Alcohol: None Drugs: Denies - CARDIAC Hx Congestive Heart Failure: Yes Hx Hypercholesterolemia: Yes Hx Hypertension: Yes - PULMONARY Hx Asthma: Yes Hx Bronchitis: Yes - NEUROLOGICAL Hx Neurological Disorder: No - HEENT Hx HEENT Problems: No - RENAL Hx Chronic Kidney Disease: No - ENDOCRINE/METABOLIC Hx Endocrine Disorders: No - HEMATOLOGICAL/ONCOLOGICAL Hx Blood Disorders: No - INTEGUMENTARY Hx Dermatological Problems: No - MUSCULOSKELETAL/RHEUMATOLOGICAL Hx Falls: Yes - GASTROINTESTINAL Hx Gastrointestinal Disorders: No Hx Pancreatitis: No - GENITOURINARY/GYNECOLOGICAL Hx Genitourinary Disorders: No - PSYCHIATRIC Hx Anxiety: Yes Hx Paranoia: Yes - SURGICAL HISTORY Hx Surgeries: No - ANESTHESIA Hx Anesthesia: Yes Hx Anesthesia Reactions: No Hx Malignant Hyperthermia: No Meds Allergies/Adverse Reactions: Allergies Allergy/AdvReac Type Severity Reaction Status Date / Time No Known Allergies Allergy Verified 05/14/18 12:11 - Medications Medications: Current Medications Alendronate Sodium (Fosamax) 70 mg PO FR [facility] Last Admin: 05/15/18 11:17 Dose: 70 mg Aspirin (Aspirin Chewable) 81 mg PO DAILY [facility] Last Admin: 05/16/18 08:42 Dose: 81 mg Atorvastatin Calcium (Lipitor) 20 mg PO DAILY [facility] Carvedilol (Coreg) 6.25 mg PO BID [facility] Last Admin: 05/16/18 13:03 Dose: Not Given Docusate Sodium (Colace) 100 mg PO BID [facility] Last Admin: 05/16/18 13:03 Dose: Not Given Enalapril Maleate (Vasotec) 20 mg PO BID [facility] Enoxaparin Sodium (Lovenox) 70 mg SC Q12 [facility]; Protocol Ferrous Sulfate (Feosol) 325 mg PO TID [facility] Last Admin: 05/16/18 13:04 Dose: Not Given Furosemide (Lasix) 20 mg PO DAILY [facility] Azithromycin 500 mg/ Sodium (Chloride) 250 mls @ 250 mls/hr IVPB DAILY [facility]; Protocol Last Admin: 05/16/18 08:40 Dose: 250 mls/hr Ceftriaxone Sodium 1 gm/ (Sodium Chloride) 100 mls @ 100 mls/hr IVPB DAILY [facility]; Protocol Last Admin: 05/16/18 08:39 Dose: 100 mls/hr Ipratropium [place] (Atrovent) 0.5 mg IH RQ6 [facility] Last Admin: 05/16/18 13:04 Dose: 0.5 mg Levalbuterol HCl (Xopenex) 0.63 mg INH RQ8 PRN PRN Reason: Wheezing Last Admin: 05/16/18 11:52 Dose: 0.63 mg Metformin HCl (Glucophage) 500 mg PO BID [facility] Last Admin: 05/16/18 08:37 Dose: 500 mg Montelukast Sodium (Singulair) 10 mg PO HS [facility] Last Admin: 05/15/18 21:59 Dose: 10 mg Multivitamins/Minerals (Therapeutic-M Tab) 1 tab PO DAILY [facility] Last Admin: 05/16/18 08:36 Dose: 1 tab Nitroglycerin (Nitro-Bid 2% Oint) 0.5 ea TOP Q6 [facility] Pantoprazole Sodium (Protonix Ec Tab) 20 mg PO BID [facility] Last Admin: 05/16/18 08:37 Dose: 20 mg Paroxetine HCl (Paxil) 20 mg PO DAILY [facility] Last Admin: 05/16/18 08:37 Dose: 20 mg Simethicone (Mylicon Chew Tab) 80 mg PO TID [facility] Last Admin: 05/16/18 13:10 Dose: 80 mg Physical Exam - Respiratory Exam Respiratory Exam: Decreased Breath Sounds - Cardiovascular Exam Cardiovascular Exam: REGULAR RHYTHM, +S1, +S2 - Extremities Exam Additional comments: NO LE EDEMA - Additional Findings Additional findings: EKG JANUARY 2017 NSR EKG TODAY SINUS RHYTHM, [address] SEGMENT ELEVATION IN CHEST LEADS V3 AND V4, T WAVE INVERSIONS IN LEADS I, L AND THE ANTERIOR LATERAL CHEST LEADS [employer] ENG[employer]ER WITH NSR, RARE SINGLE PACS AND PVCS TROPONIN ELEVATED AT 1.36 ECHOCARDIOGRAM 2017 WITH NORMAL LV SYSTOLIC FUNCTION CXR AND CT SCAN WITH PNEUMONIA, PLEURAL EFFUSUIONS AND POSSIBLY PULMONARY CONGESTION NA 129 GFR > 60 Results - Vital Signs Recent Vital Signs: Last Vital Signs Temp 98.3 F 05/16/18 16:02 Pulse 85 05/16/18 16:02 Resp 17 05/16/18 16:02 BP 178/97 H 05/16/18 16:02 Pulse Ox 98 05/16/18 16:02 - Labs Result Diagrams: 05/16/18 09:50 05/16/18 09:50 Labs: Laboratory Results - last 24 hr 05/15/18 05/15/18 05/16/18 11:20 11:20 05:15 WBC RBC Hgb Hct MCV MCH MCHC RDW Plt Count MPV Neut % (Auto) Lymph % (Auto) [place] % (Auto) Eos % (Auto) Baso % (Auto) Neut # (Auto) Lymph # (Auto) [place] # (Auto) Eos # (Auto) Baso # (Auto) Sodium Potassium Chloride Carbon Dioxide Anion Gap BUN Creatinine Est GFR ( Amer) Est GFR (Non-Af Amer) Random Glucose Calcium Troponin I NT-Pro-B Natriuret Pep 8250 H Urine Color Yellow Urine Clarity Cloudy Urine pH 5.0 Ur Specific [place] 1.016 Urine Protein Negative Urine Glucose (UA) 50 Urine Ketones Negative Urine Blood Negative Urine Nitrate Negative Urine Bilirubin Negative Urine Urobilinogen 0.2-1.0 Ur Leukocyte Esterase Neg Urine RBC (Auto) 3 Urine Microscopic WBC 3 Ur Squamous Epith Cells 3 Urine Bacteria Few H Ur Random Creatinine 72.7 Ur Random Sodium 21 05/16/18 05/16/18 05/16/18 08:20 09:50 09:50 WBC 8.5 RBC 3.26 L Hgb 10.9 L Hct 32.9 L MCV 100.6 H D MCH 33.3 H MCHC 33.1 RDW 13.9 Plt Count 284 MPV 7.7 Neut % (Auto) 69.8 Lymph % (Auto) 18.5 L [place] % (Auto) 9.4 Eos % (Auto) 1.3 Baso % (Auto) 1.0 Neut # (Auto) 5.9 Lymph # (Auto) 1.6 [place] # (Auto) 0.8 Eos # (Auto) 0.1 Baso # (Auto) 0.1 Sodium 129 L Potassium 4.4 Chloride 99 Carbon Dioxide 22 Anion Gap 12 BUN 9 Creatinine 0.5 L Est GFR ( Amer) > 60 Est GFR (Non-Af Amer) > 60 Random Glucose 133 H Calcium 8.4 Troponin I 1.3600 H* NT-Pro-B Natriuret Pep Urine Color Urine Clarity Urine pH Ur Specific [place] Urine Protein Urine Glucose (UA) Urine Ketones Urine Blood Urine Nitrate Urine Bilirubin Urine Urobilinogen Ur Leukocyte Esterase Urine RBC (Auto) Urine Microscopic WBC Ur Squamous Epith Cells Urine Bacteria Ur Random Creatinine Ur Random Sodium Assessment & Plan - Assessment and Plan (Free Text) Assessment: CAD WITH ACUTE ANTERIOR WALL SD BY EKG AND TROPONIN HYPERTENSION COPD AND PNEUMONIA ELEVATED PBNP WITH PROBABLE PULMONARY CONGESTION ELEMENT IN ADDITION TO PNEUMONIA TYPE 2 DM OLD TIA Plan: THE PATIENT WAS ADMITTED TO 4N ON TELEMETRY O2, CARVEDILOL, ENALAPRIL, NITRATES, FUROSEMIDE, ASPIRIN, LOVENOX, ATORVASTATIN, IV ANTIBIOTICS, PULMONARY MEDICATIONS, GLUCOPHAGE SERIAL EKGS AND TROPONINS, ECHOCARDIOGRAM A CARDIAC CATH AFTER PNEUMONIA TREATMENT WAS DISCUSSED WITH THE PATIENT AND THE FAMILY BUT SHE DECLINED IT FURTHER TREATMENT PER CLINICAL COURSE
[2018-05-16] MEDS: Nitroglycerin 2% Ointment Foilpak UD TOP SCH ×2 (17:26→21:16)
--- NOTE | 2018-05-16 17:52 | PN ---
DATE: 05/16/2018 SUBJECTIVE: The patient is lying on the bed in no acute distress. Denies any headache or dizziness. PHYSICAL EXAMINATION: VITAL SIGNS: Her blood pressure is 184/95, heart rate 94 per minute, breathing at the rate of 16 per minute, temperature is 97.6 degrees Fahrenheit. HEENT: Head is normocephalic and atraumatic. NECK: Supple. There are no carotid bruits. LUNGS: Clear. CVS: S1, S2 audible. No murmurs. ABDOMEN: Soft and nontender. Bowel sounds are present. NEUROLOGIC: Mental status: The patient is awake and alert. She follows all simple commands. She knows the year is 2017, month is May, her President is Elo. Cranial nerve: Pupils 3 mm bilaterally, reactive to light. Visual funes are full. Extraocular movements are intact. There is no facial asymmetry. She is moving all four extremities symmetrically. Power appears to be 4/5 all over. Plantars are downgoing bilaterally. LABORATORY DATA: Labs reviewed shows WBC of 8.5, hemoglobin 10.9, hematocrit 32.9, and platelets of 284. Sodium is 128, potassium is 4.2, chloride is 24, BUN 14, creatinine 0.5, and glucose of 144. IMPRESSION: 1. Altered mental status secondary to toxic metabolic encephalopathy. 2. Status post fall. 3. Hyponatremia. 4. Pneumonia. RECOMMENDATIONS: 1. The patient's mental status is better; she is more alert today. 2. The patient to be continued on IV antibiotics. 3. The patient had vitamin B12 level done, which is 946. 4. The patient to have an electroencephalogram. 5. Please continue supportive care and other treatment. Thank you for the opportunity to participate in the care of this patient. Bonifacio Patel MD
[2018-05-16] MEDS: Enoxaparin 80 mg Syringe SC SCH (21:18)
--- NOTE | 2018-05-16 22:55 | CP.PCM.PN ---
Subjective - Date & Time of Evaluation Date of Evaluation: 05/16/18 Time of Evaluation: 22:22 - Subjective Subjective: Above cardiology note appreciated Acute ant wall MN + CE Objective - Vital Signs/Intake and Output Vital Signs (last 24 hours): Temp Pulse Resp BP Pulse Ox 98.3 F 69 17 135/79 99 05/16/18 19:45 05/16/18 21:19 05/16/18 19:45 05/16/18 21:19 05/16/18 19:45 - Medications Medications: Current Medications Alendronate Sodium (Fosamax) 70 mg PO FR [facility] Last Admin: 05/15/18 11:17 Dose: 70 mg Aspirin (Aspirin Chewable) 81 mg PO DAILY [facility] Last Admin: 05/16/18 08:42 Dose: 81 mg Atorvastatin Calcium (Lipitor) 20 mg PO DAILY [facility] Carvedilol (Coreg) 6.25 mg PO BID@0900,2100 [facility] Last Admin: 05/16/18 21:19 Dose: 6.25 mg Docusate Sodium (Colace) 100 mg PO BID [facility] Last Admin: 05/16/18 19:38 Dose: Not Given Enalapril Maleate (Vasotec) 20 mg PO BID [facility] Last Admin: 05/16/18 17:32 Dose: 20 mg Enoxaparin Sodium (Lovenox) 70 mg SC Q12 [facility]; Protocol Last Admin: 05/16/18 21:18 Dose: 70 mg Ferrous Sulfate (Feosol) 325 mg PO TID [facility] Last Admin: 05/16/18 17:32 Dose: 325 mg Furosemide (Lasix) 20 mg PO DAILY [facility] Azithromycin 500 mg/ Sodium (Chloride) 250 mls @ 250 mls/hr IVPB DAILY [facility]; Protocol Last Admin: 05/16/18 08:40 Dose: 250 mls/hr Ceftriaxone Sodium 1 gm/ (Sodium Chloride) 100 mls @ 100 mls/hr IVPB DAILY [facility]; Protocol Last Admin: 05/16/18 08:39 Dose: 100 mls/hr Ipratropium [place] (Atrovent) 0.5 mg IH RQ6 [facility] Last Admin: 05/16/18 19:12 Dose: 0.5 mg Levalbuterol HCl (Xopenex) 0.63 mg INH RQ8 PRN PRN Reason: Wheezing Last Admin: 05/16/18 11:52 Dose: 0.63 mg Metformin HCl (Glucophage) 500 mg PO BID [facility] Last Admin: 05/16/18 17:26 Dose: 500 mg Montelukast Sodium (Singulair) 10 mg PO HS [facility] Last Admin: 05/16/18 21:18 Dose: 10 mg Multivitamins/Minerals (Therapeutic-M Tab) 1 tab PO DAILY [facility] Last Admin: 05/16/18 08:36 Dose: 1 tab Nitroglycerin (Nitro-Bid 2% Oint) 0.5 ea TOP Q6 [facility] Last Admin: 05/16/18 21:16 Dose: 0.5 ea Pantoprazole Sodium (Protonix Ec Tab) 20 mg PO BID [facility] Last Admin: 05/16/18 17:31 Dose: 20 mg Paroxetine HCl (Paxil) 20 mg PO DAILY [facility] Last Admin: 05/16/18 08:37 Dose: 20 mg Simethicone (Mylicon Chew Tab) 80 mg PO TID [facility] Last Admin: 05/16/18 17:30 Dose: 80 mg - Labs Labs: 05/16/18 09:50 05/16/18 09:50 - Respiratory Exam Respiratory Exam: NORMAL BREATHING PATTERN - Cardiovascular Exam Cardiovascular Exam: REGULAR RHYTHM - GI/Abdominal Exam GI & Abdominal Exam: Normal Bowel Sounds Assessment and Plan - Assessment and Plan (Free Text) Assessment: Acute ant wall MN + CE CT scan CHF O2 JAYESH B-annia Nitrates ASA Lovenox Cardiology Echo Fall etiol?? 2 to above? 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
[2018-05-16 23:24] LABS: SQUAMOUS EPITHIAL < 1 /hpf (0-5); URINE BILIRUBIN NEGATIVE (NEGATIVE); URINE BLOOD SMALL (NEGATIVE); URINE CLARITY CLEAR (Clear); URINE COLOR STRAW (YELLOW); URINE GLUCOSE (UA) NEG (Normal); URINE HYALINE CAST 0-2 /hpf (0-2); URINE LEUKOCYTE ESTERASE NEG Leu/uL (Negative); URINE PROTEIN NEGATIVE (NEGATIVE); URINE UROBILINOGEN 0.2-1.0 mg/dL (0.2-1.0)
[2018-05-16 23:38] LABS: CREATININE, RANDOM URINE 19.1 mg/dL
[2018-05-17] MEDS: Levalbuterol 0.63 MG/3 ML Inhal Soln UD INH PRN ×3 (00:24→23:30)
[2018-05-17] MEDS: Ipratropium 0.02% Inhal Soln (0.5 mg/2.5 ml) UD IH SCH ×5 (00:25→23:30)
[2018-05-17] MEDS: Nitroglycerin 2% Ointment Foilpak UD TOP SCH ×4 (04:30→21:07)
[2018-05-17] MEDS: Pantoprazole 20 mg EC Tab PO SCH ×2 (09:04→16:50)
[2018-05-17] MEDS: Multivitamin With Minerals Tab PO SCH (09:05)
[2018-05-17] MEDS: Enoxaparin 80 mg Syringe SC SCH ×2 (09:06→21:09)
[2018-05-17] MEDS: Simethicone 80 mg Chewtab PO SCH ×3 (09:07→16:49)
[2018-05-17] MEDS: Azithromycin 500 MG in Sodium Chloride 0.9% 250 ML IVPB SCH (09:08)
--- NOTE | 2018-05-17 10:31 | CP.PCM.PN ---
Subjective - Date & Time of Evaluation Date of Evaluation: 05/16/18 Time of Evaluation: 10:15 - Subjective Subjective: NO CHEST PAIN BREATHING COMFORTABLY Objective - Vital Signs/Intake and Output Vital Signs (last 24 hours): Temp Pulse Resp BP Pulse Ox 98.0 F 75 18 183/83 H 99 05/17/18 08:00 05/17/18 09:05 05/17/18 08:00 05/17/18 09:06 05/17/18 08:00 - Medications Medications: Current Medications Acetaminophen (Tylenol 325mg Tab) 650 mg PO Q6 PRN PRN Reason: Pain, Mild (1-3) Alendronate Sodium (Fosamax) 70 mg PO FR [facility] Last Admin: 05/15/18 11:17 Dose: 70 mg Aspirin (Aspirin Chewable) 81 mg PO DAILY [facility] Last Admin: 05/17/18 09:04 Dose: 81 mg Atorvastatin Calcium (Lipitor) 20 mg PO DAILY@2200 [facility] Carvedilol (Coreg) 6.25 mg PO BID@0900,2100 [facility] Last Admin: 05/17/18 09:05 Dose: 6.25 mg Docusate Sodium (Colace) 100 mg PO BID [facility] Last Admin: 05/17/18 09:04 Dose: Not Given Enalapril Maleate (Vasotec) 20 mg PO BID [facility] Last Admin: 05/17/18 09:05 Dose: 20 mg Enoxaparin Sodium (Lovenox) 70 mg SC Q12 [facility]; Protocol Last Admin: 05/17/18 09:06 Dose: 70 mg Ferrous Sulfate (Feosol) 325 mg PO TID [facility] Last Admin: 05/17/18 09:03 Dose: 325 mg Furosemide (Lasix) 20 mg PO DAILY [facility] Last Admin: 05/17/18 09:06 Dose: 20 mg Azithromycin 500 mg/ Sodium (Chloride) 250 mls @ 250 mls/hr IVPB DAILY [facility]; Protocol Last Admin: 05/17/18 09:08 Dose: 250 mls/hr Ceftriaxone Sodium 1 gm/ (Sodium Chloride) 100 mls @ 100 mls/hr IVPB DAILY [facility]; Protocol Last Admin: 05/17/18 09:08 Dose: 100 mls/hr Ipratropium [place] (Atrovent) 0.5 mg IH RQ6 [facility] Last Admin: 05/17/18 07:32 Dose: 0.5 mg Levalbuterol HCl (Xopenex) 0.63 mg INH RQ8 PRN PRN Reason: Wheezing Last Admin: 05/17/18 00:24 Dose: 0.63 mg Metformin HCl (Glucophage) 500 mg PO BID [facility] Last Admin: 05/17/18 09:03 Dose: 500 mg Montelukast Sodium (Singulair) 10 mg PO HS [facility] Last Admin: 05/16/18 21:18 Dose: 10 mg Multivitamins/Minerals (Therapeutic-M Tab) 1 tab PO DAILY [facility] Last Admin: 05/17/18 09:05 Dose: 1 tab Nitroglycerin (Nitro-Bid 2% Oint) 0.5 ea TOP Q6 [facility] Last Admin: 05/17/18 04:30 Dose: 0.5 ea Pantoprazole Sodium (Protonix Ec Tab) 20 mg PO BID [facility] Last Admin: 05/17/18 09:04 Dose: 20 mg Paroxetine HCl (Paxil) 20 mg PO DAILY [facility] Last Admin: 05/17/18 09:04 Dose: 20 mg Simethicone (Mylicon Chew Tab) 80 mg PO TID [facility] Last Admin: 05/17/18 09:07 Dose: 80 mg - Labs Labs: 05/16/18 09:50 05/16/18 09:50 - Respiratory Exam Respiratory Exam: Decreased Breath Sounds - Cardiovascular Exam Cardiovascular Exam: REGULAR RHYTHM, +S1, +S2 - Extremities Exam Additional comments: NO LE EDEMA - Additional Findings Additional findings: BP BY ME 140/80 P 75 EKG TODAY SHOWS NSR WITH 1 PVC, ST ELEVATION IN CHEST LEADS V3 AND V4 ARE SLIGHTLY IMPROVED, T WAVE INVERSIONS IN LEADS I AND L ARE IMPROVED, ANTERIOR LATERAL CHEST LEADS WITH T WAVE INVERSIONS TROPONIN # 2 0F 1.12 AND TROPONIN # 3 OF 1.09 ARE TRENDING DOWN Assessment and Plan - Assessment and Plan (Free Text) Assessment: ANTERIOR WALL [place]-CHEST PAIN FREE AND HEMODYNAMICALLY STABLE HYPERTENSION HYPERLIPIDEMIA COPD WITH PNEUMONIA TYPE 2 DM Plan: CONTINUE O2, CARVEDILOL, NITRATES, ASPIRIN, LOVENOX, ENALAPRIL, FUROSEMIDE, ATORVASTATIN, COPD MEDS AND ANTIBIOTICS EKG IN AM
--- NOTE | 2018-05-17 12:42 | CP.PCM.PN ---
Subjective - Date & Time of Evaluation Date of Evaluation: 05/17/18 Time of Evaluation: 12:41 - Subjective Subjective: Nephrology Consultation Note Assessment: Stable hypervolemic hyponatremia likely due to CHF uncontrolled HTN ? NSTEMI Pneumonia Fall, DM, HTN, hyperlipidemia, anemia Plan No acute need for renal replacement therapy at this time. Hypertension control with meds as ordered. Maintain hemodynamics stable. Avoid hypotension. increased enalapril to 20 bid. also increased coreg. added norvasc 5 mg Monitor Input/Output, daily weights and renal function with basic metabolic panel agree with lasix, consider to increase to 20 mg bid IV continue with iron for anemia Glycemic control Further work up for as per primary team Thanks for allowing me to participate in care of your patient. Dr Nicho Reaves will follow patient with you from tomorrow. Please call if any Qs Dr Alvaro Chandler Office: [phone] Subjective: Noted events overnight. Patients feels okay. Denies chest pain, palpitation, shortness of breath, leg swelling. All other negative Physical Examination: General Appearance: Comfortable, in no acute respiratory distress, co-operative . Vitals reviewed and noted as below Head; Atraumatic, normocephalic ENT: no ulcers no thrush. Tongue is midline. Oropharynx: no rash or ulcers. EYES: Pupils are equal, round and reactive to light accommodation. Eye muscles and extraocular movement intact. Sclera is anicteric. Neck; supple no lymphadenopathy, no thyromegaly or bruit Lungs: Normal respiratory rate/effort. Breath sounds bilateral decreased at bases with crackles Heart: Normal rate. s1s2 normal. No rub or gallop. Extremities: no edema. No varicose veins. left ankle dressing + hx of skin graft Neurological: Patient is alert, awake and oriented to person, place and time. No focal deficit. Strength bilateral appropriate and equal Skin: Warm and dry. Normal turgor. No rash. Palpitation: Normal elasticity for age Abdomen: Abdomen is soft. Bowel sounds +. There is no abdominal tenderness, no guarding/rigidity no organomegaly Psych: limited insight and normal affect/mood MSK: no joint tenderness or swelling. Digits and nails normal, no deformity : kidney or bladder not palpable Labs/imaging reviewed. Past medical history, past surgical history, family history, social history, allergy reviewed and noted as below Family hx: no hx of CKD. Rest non-contributory Objective - Vital Signs/Intake and Output Vital Signs (last 24 hours): Temp Pulse Resp BP Pulse Ox 98.0 F 75 18 183/83 H 99 05/17/18 08:00 18 11:24 05/17/18 08:00 05/17/18 11:24 05/17/18 08:00 - Medications Medications: Current Medications Acetaminophen (Tylenol 325mg Tab) 650 mg PO Q6 PRN PRN Reason: Pain, Mild (1-3) Alendronate Sodium (Fosamax) 70 mg PO FR [facility] Last Admin: 05/15/18 11:17 Dose: 70 mg Amlodipine Besylate (Norvasc) 5 mg PO DAILY [facility] Last Admin: 05/17/18 11:24 Dose: 5 mg Aspirin (Aspirin Chewable) 81 mg PO DAILY [facility] Last Admin: 05/17/18 09:04 Dose: 81 mg Atorvastatin Calcium (Lipitor) 20 mg PO DAILY@2200 [facility] Carvedilol (Coreg) 6.25 mg PO BID@0900,2100 [facility] Last Admin: 05/17/18 09:05 Dose: 6.25 mg Docusate Sodium (Colace) 100 mg PO BID [facility] Last Admin: 05/17/18 09:04 Dose: Not Given Enalapril Maleate (Vasotec) 20 mg PO BID [facility] Last Admin: 05/17/18 09:05 Dose: 20 mg Enoxaparin Sodium (Lovenox) 70 mg SC Q12 [facility]; Protocol Last Admin: 05/17/18 09:06 Dose: 70 mg Ferrous Sulfate (Feosol) 325 mg PO TID [facility] Last Admin: 05/17/18 09:03 Dose: 325 mg Furosemide (Lasix) 20 mg PO DAILY [facility] Last Admin: 05/17/18 09:06 Dose: 20 mg Azithromycin 500 mg/ Sodium (Chloride) 250 mls @ 250 mls/hr IVPB DAILY [facility]; Protocol Last Admin: 05/17/18 09:08 Dose: 250 mls/hr Ceftriaxone Sodium 1 gm/ (Sodium Chloride) 100 mls @ 100 mls/hr IVPB DAILY [facility]; Protocol Last Admin: 05/17/18 09:08 Dose: 100 mls/hr Ipratropium [place] (Atrovent) 0.5 mg IH RQ6 [facility] Last Admin: 05/17/18 07:32 Dose: 0.5 mg Levalbuterol HCl (Xopenex) 0.63 mg INH RQ8 PRN PRN Reason: Wheezing Last Admin: 05/17/18 00:24 Dose: 0.63 mg Metformin HCl (Glucophage) 500 mg PO BID [facility] Last Admin: 05/17/18 09:03 Dose: 500 mg Montelukast Sodium (Singulair) 10 mg PO HS [facility] Last Admin: 05/16/18 21:18 Dose: 10 mg Multivitamins/Minerals (Therapeutic-M Tab) 1 tab PO DAILY [facility] Last Admin: 05/17/18 09:05 Dose: 1 tab Nitroglycerin (Nitro-Bid 2% Oint) 0.5 ea TOP Q6 [facility] Last Admin: 05/17/18 11:24 Dose: 0.5 ea Pantoprazole Sodium (Protonix Ec Tab) 20 mg PO BID [facility] Last Admin: 05/17/18 09:04 Dose: 20 mg Paroxetine HCl (Paxil) 20 mg PO DAILY [facility] Last Admin: 05/17/18 09:04 Dose: 20 mg Simethicone (Mylicon Chew Tab) 80 mg PO TID [facility] Last Admin: 05/17/18 09:07 Dose: 80 mg - Labs Labs: 05/16/18 09:50 05/16/18 09:50
--- NOTE | 2018-05-17 16:29 | CP.PCM.PN ---
Subjective - Date & Time of Evaluation Date of Evaluation: 05/17/18 Time of Evaluation: 22:22 - Subjective Subjective: Above noted Objective - Vital Signs/Intake and Output Vital Signs (last 24 hours): Temp Pulse Resp BP Pulse Ox 98.8 F 87 17 161/80 H 98 05/17/18 16:23 05/17/18 16:23 05/17/18 16:23 05/17/18 16:23 05/17/18 16:23 - Medications Medications: Current Medications Acetaminophen (Tylenol 325mg Tab) 650 mg PO Q6 PRN PRN Reason: Pain, Mild (1-3) Alendronate Sodium (Fosamax) 70 mg PO FR [facility] Last Admin: 05/15/18 11:17 Dose: 70 mg Amlodipine Besylate (Norvasc) 5 mg PO DAILY [facility] Last Admin: 05/17/18 11:24 Dose: 5 mg Aspirin (Aspirin Chewable) 81 mg PO DAILY [facility] Last Admin: 05/17/18 09:04 Dose: 81 mg Atorvastatin Calcium (Lipitor) 20 mg PO DAILY@2200 [facility] Carvedilol (Coreg) 6.25 mg PO BID@0900,2100 [facility] Last Admin: 05/17/18 09:05 Dose: 6.25 mg Docusate Sodium (Colace) 100 mg PO BID [facility] Last Admin: 05/17/18 09:04 Dose: Not Given Enalapril Maleate (Vasotec) 20 mg PO BID [facility] Last Admin: 05/17/18 09:05 Dose: 20 mg Enoxaparin Sodium (Lovenox) 70 mg SC Q12 [facility]; Protocol Last Admin: 05/17/18 09:06 Dose: 70 mg Ferrous Sulfate (Feosol) 325 mg PO TID [facility] Last Admin: 05/17/18 13:22 Dose: Not Given Furosemide (Lasix) 20 mg PO DAILY [facility] Last Admin: 05/17/18 09:06 Dose: 20 mg Azithromycin 500 mg/ Sodium (Chloride) 250 mls @ 250 mls/hr IVPB DAILY [facility]; Protocol Last Admin: 05/17/18 09:08 Dose: 250 mls/hr Ceftriaxone Sodium 1 gm/ (Sodium Chloride) 100 mls @ 100 mls/hr IVPB DAILY [facility]; Protocol Last Admin: 05/17/18 09:08 Dose: 100 mls/hr Ipratropium [place] (Atrovent) 0.5 mg IH RQ6 [facility] Last Admin: 05/17/18 14:40 Dose: 0.5 mg Levalbuterol HCl (Xopenex) 0.63 mg INH RQ8 PRN PRN Reason: Wheezing Last Admin: 05/17/18 14:40 Dose: 0.63 mg Metformin HCl (Glucophage) 500 mg PO BID [facility] Last Admin: 05/17/18 09:03 Dose: 500 mg Montelukast Sodium (Singulair) 10 mg PO HS [facility] Last Admin: 05/16/18 21:18 Dose: 10 mg Multivitamins/Minerals (Therapeutic-M Tab) 1 tab PO DAILY [facility] Last Admin: 05/17/18 09:05 Dose: 1 tab Nitroglycerin (Nitro-Bid 2% Oint) 0.5 ea TOP Q6 [facility] Last Admin: 05/17/18 11:24 Dose: 0.5 ea Pantoprazole Sodium (Protonix Ec Tab) 20 mg PO BID [facility] Last Admin: 05/17/18 09:04 Dose: 20 mg Paroxetine HCl (Paxil) 20 mg PO DAILY [facility] Last Admin: 05/17/18 09:04 Dose: 20 mg Simethicone (Mylicon Chew Tab) 80 mg PO TID [facility] Last Admin: 05/17/18 13:21 Dose: 80 mg - Labs Labs: 05/16/18 09:50 05/16/18 09:50 - Respiratory Exam Respiratory Exam: NORMAL BREATHING PATTERN - Cardiovascular Exam Cardiovascular Exam: Tachycardia, REGULAR RHYTHM - GI/Abdominal Exam GI & Abdominal Exam: Normal Bowel Sounds Assessment and Plan - Assessment and Plan (Free Text) Assessment: Acute ant wall CT + CE CT scan CHF O2 JAYESH B-annia Nitrates ASA Lovenox Cardiology Echo Fall etiol?? 2 to above? 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
[2018-05-18] MEDS ORDERED: Levalbuterol 0.63 MG/3 ML Inhal Soln UD INH STA (04:18)
[2018-05-18] MEDS: Levalbuterol 0.63 MG/3 ML Inhal Soln UD INH PRN ×2 (04:42→09:57)
[2018-05-18] MEDS: Nitroglycerin 2% Ointment Foilpak UD TOP SCH ×4 (04:45→21:10)
[2018-05-18] MEDS: Ipratropium 0.02% Inhal Soln (0.5 mg/2.5 ml) UD IH SCH ×3 (07:37→19:08)
--- NOTE | 2018-05-18 08:57 | CP.PCM.PN ---
Subjective - Date & Time of Evaluation Date of Evaluation: 05/18/18 Time of Evaluation: 08:55 - Subjective Subjective: patient sitting up in bed and receiving have breakfast Awake and conscious Vital sign noted to be stable Objective - Vital Signs/Intake and Output Vital Signs (last 24 hours): Temp Pulse Resp BP Pulse Ox 97.6 F 81 20 107/64 99 05/18/18 08:14 05/18/18 08:14 05/18/18 08:14 05/18/18 08:14 05/18/18 08:14 - Medications Medications: Current Medications Acetaminophen (Tylenol 325mg Tab) 650 mg PO Q6 PRN PRN Reason: Pain, Mild (1-3) Alendronate Sodium (Fosamax) 70 mg PO FR [facility] Last Admin: 05/15/18 11:17 Dose: 70 mg Amlodipine Besylate (Norvasc) 5 mg PO DAILY [facility] Last Admin: 05/17/18 11:24 Dose: 5 mg Aspirin (Aspirin Chewable) 81 mg PO DAILY [facility] Last Admin: 05/17/18 09:04 Dose: 81 mg Atorvastatin Calcium (Lipitor) 20 mg PO DAILY@2200 [facility] Last Admin: 05/17/18 21:09 Dose: 20 mg Carvedilol (Coreg) 6.25 mg PO BID@0900,2100 [facility] Last Admin: 05/17/18 21:09 Dose: 6.25 mg Docusate Sodium (Colace) 100 mg PO BID [facility] Last Admin: 05/17/18 16:49 Dose: Not Given Enalapril Maleate (Vasotec) 20 mg PO BID [facility] Last Admin: 05/17/18 16:50 Dose: 20 mg Enoxaparin Sodium (Lovenox) 70 mg SC Q12 [facility]; Protocol Last Admin: 05/17/18 21:09 Dose: 70 mg Ferrous Sulfate (Feosol) 325 mg PO TID [facility] Last Admin: 05/17/18 16:49 Dose: Not Given Furosemide (Lasix) 20 mg PO DAILY [facility] Last Admin: 05/17/18 09:06 Dose: 20 mg Azithromycin 500 mg/ Sodium (Chloride) 250 mls @ 250 mls/hr IVPB DAILY [facility]; Protocol Last Admin: 05/17/18 09:08 Dose: 250 mls/hr Ceftriaxone Sodium 1 gm/ (Sodium Chloride) 100 mls @ 100 mls/hr IVPB DAILY [facility]; Protocol Last Admin: 05/17/18 09:08 Dose: 100 mls/hr Ipratropium [place] (Atrovent) 0.5 mg IH RQ6 [facility] Last Admin: 05/18/18 07:37 Dose: 0.5 mg Levalbuterol HCl (Xopenex) 0.63 mg INH RQ8 PRN PRN Reason: Wheezing Last Admin: 05/17/18 23:30 Dose: 0.63 mg Metformin HCl (Glucophage) 500 mg PO BID [facility] Last Admin: 05/17/18 16:49 Dose: 500 mg Montelukast Sodium (Singulair) 10 mg PO HS [facility] Last Admin: 05/17/18 21:07 Dose: 10 mg Multivitamins/Minerals (Therapeutic-M Tab) 1 tab PO DAILY [facility] Last Admin: 05/17/18 09:05 Dose: 1 tab Nitroglycerin (Nitro-Bid 2% Oint) 0.5 ea TOP Q6 [facility] Last Admin: 05/18/18 04:45 Dose: 0.5 ea Pantoprazole Sodium (Protonix Ec Tab) 20 mg PO BID [facility] Last Admin: 05/17/18 16:50 Dose: 20 mg Paroxetine HCl (Paxil) 20 mg PO DAILY [facility] Last Admin: 05/17/18 09:04 Dose: 20 mg Simethicone (Mylicon Chew Tab) 80 mg PO TID [facility] Last Admin: 05/17/18 16:49 Dose: 80 mg - Labs Labs: 05/16/18 09:50 05/16/18 09:50 - Constitutional Appears: No Acute Distress - ENT Exam ENT Exam: absent: Mucous Membranes Moist - Neck Exam Neck Exam: absent: Lymphadenopathy - Respiratory Exam Respiratory Exam: NORMAL BREATHING PATTERN. absent: Chest Wall Tenderness - GI/Abdominal Exam GI & Abdominal Exam: Soft, Normal Bowel Sounds - Extremities Exam Extremities Exam: absent: Calf Tenderness - Back Exam Back Exam: absent: CVA tenderness (L), CVA tenderness (R) - Neurological Exam Neurological Exam: Awake - Psychiatric Exam Psychiatric exam: Normal Affect - Skin Skin Exam: absent: Cyanosis Assessment and Plan (1) Hyponatremia Assessment & Plan: hyponatremia The last serum sodium was 3 days ago we will repeat BMP stat ? NSTEMI Pneumonia Fall, DM, HTN, hyperlipidemia, anemia Repeat stat BMP Status: Acute (2) Contusion, hip Status: Acute
[2018-05-18] MEDS: Enoxaparin 80 mg Syringe SC SCH ×2 (09:30→21:07)
[2018-05-18] MEDS: Simethicone 80 mg Chewtab PO SCH ×3 (09:31→16:40)
[2018-05-18] MEDS: Pantoprazole 20 mg EC Tab PO SCH ×2 (09:32→16:40)
[2018-05-18] MEDS: Azithromycin 500 MG in Sodium Chloride 0.9% 250 ML IVPB SCH (09:35)
[2018-05-18] MEDS: Multivitamin With Minerals Tab PO SCH (09:36)
--- NOTE | 2018-05-18 09:36 | CP.PCM.PN ---
Subjective - Date & Time of Evaluation Date of Evaluation: 05/18/18 Time of Evaluation: 09:00 - Subjective Subjective: NO CHEST PAIN BREATHING COMFORTABLY Objective - Vital Signs/Intake and Output Vital Signs (last 24 hours): Temp Pulse Resp BP Pulse Ox 97.6 F 81 20 107/64 99 05/18/18 08:14 05/18/18 08:14 05/18/18 08:14 05/18/18 08:14 05/18/18 08:14 - Medications Medications: Current Medications Acetaminophen (Tylenol 325mg Tab) 650 mg PO Q6 PRN PRN Reason: Pain, Mild (1-3) Alendronate Sodium (Fosamax) 70 mg PO FR [facility] Last Admin: 05/15/18 11:17 Dose: 70 mg Amlodipine Besylate (Norvasc) 5 mg PO DAILY [facility] Last Admin: 05/17/18 11:24 Dose: 5 mg Aspirin (Aspirin Chewable) 81 mg PO DAILY [facility] Last Admin: 05/17/18 09:04 Dose: 81 mg Atorvastatin Calcium (Lipitor) 20 mg PO DAILY@2200 [facility] Last Admin: 05/17/18 21:09 Dose: 20 mg Carvedilol (Coreg) 6.25 mg PO BID@0900,2100 [facility] Last Admin: 05/17/18 21:09 Dose: 6.25 mg Docusate Sodium (Colace) 100 mg PO BID [facility] Last Admin: 05/17/18 16:49 Dose: Not Given Enalapril Maleate (Vasotec) 20 mg PO BID [facility] Last Admin: 05/17/18 16:50 Dose: 20 mg Enoxaparin Sodium (Lovenox) 70 mg SC Q12 [facility]; Protocol Last Admin: 05/17/18 21:09 Dose: 70 mg Ferrous Sulfate (Feosol) 325 mg PO TID [facility] Last Admin: 05/17/18 16:49 Dose: Not Given Furosemide (Lasix) 20 mg PO DAILY [facility] Last Admin: 05/17/18 09:06 Dose: 20 mg Guaifenesin (Mucinex [place]) 600 mg PO Q12 [facility] Azithromycin 500 mg/ Sodium (Chloride) 250 mls @ 250 mls/hr IVPB DAILY [facility]; Protocol Last Admin: 05/17/18 09:08 Dose: 250 mls/hr Ceftriaxone Sodium 1 gm/ (Sodium Chloride) 100 mls @ 100 mls/hr IVPB DAILY [facility]; Protocol Last Admin: 05/17/18 09:08 Dose: 100 mls/hr Ipratropium [place] (Atrovent) 0.5 mg IH RQ6 [facility] Last Admin: 05/18/18 07:37 Dose: 0.5 mg Levalbuterol HCl (Xopenex) 0.63 mg INH RQ8 PRN PRN Reason: Wheezing Last Admin: 05/17/18 23:30 Dose: 0.63 mg Metformin HCl (Glucophage) 500 mg PO BID [facility] Last Admin: 05/17/18 16:49 Dose: 500 mg Montelukast Sodium (Singulair) 10 mg PO HS [facility] Last Admin: 05/17/18 21:07 Dose: 10 mg Multivitamins/Minerals (Therapeutic-M Tab) 1 tab PO DAILY [facility] Last Admin: 05/17/18 09:05 Dose: 1 tab Nitroglycerin (Nitro-Bid 2% Oint) 0.5 ea TOP Q6 [facility] Last Admin: 05/18/18 04:45 Dose: 0.5 ea Pantoprazole Sodium (Protonix Ec Tab) 20 mg PO BID [facility] Last Admin: 05/17/18 16:50 Dose: 20 mg Paroxetine HCl (Paxil) 20 mg PO DAILY [facility] Last Admin: 05/17/18 09:04 Dose: 20 mg Simethicone (Mylicon Chew Tab) 80 mg PO TID [facility] Last Admin: 05/17/18 16:49 Dose: 80 mg - Labs Labs: 05/16/18 09:50 05/16/18 09:50 - Respiratory Exam Respiratory Exam: Decreased Breath Sounds - Cardiovascular Exam Cardiovascular Exam: REGULAR RHYTHM, +S1, +S2 - Extremities Exam Additional comments: NO LE EDEMA - Additional Findings Additional findings: TODAY'S EKG PENDING ECHO PENDING Assessment and Plan - Assessment and Plan (Free Text) Assessment: ANTERIOR WALL MD PNEUMONIA HYPERTENSION TYPE 2 DM HYPONATREMIA Plan: CONTINUE O2, ASPIRIN, LOVENOX, CARVEDILOL, ENALAPRIL, AMLODIPINE, FUROSEMIDE, NITRATES, ATORVASTATIN, ANTIBIOTICS AND COPD MEDS FOR EKG AND ECHO TODAY
--- NOTE | 2018-05-18 09:38 | CP.PCM.PN ---
Subjective - Date & Time of Evaluation Date of Evaluation: 05/18/18 Time of Evaluation: 09:34 - Subjective Subjective: Lying supine in bed, had EKG repeated this morning. Offers no complaints of chest pain or respiratory distress. Still has some audible wheezing at times which appears to be upper airway mostly. Some wheezes are also heard in the right parasternal region as well. Sonorous and sibilant rhonchi are present bilaterally. Coughing partially clears the apparent airways turbulence. Small amounts of yellow soutum are still being expectorated. Vital signs have remained stable, oxygenation is adequate. Cardiology following as well for NSTEMI. Will add guaifenesin 600 BID to PO regimen. Aerosol with ipratropium and PRN levalbuterol if necessary. Objective - Vital Signs/Intake and Output Vital Signs (last 24 hours): Temp Pulse Resp BP Pulse Ox 97.6 F 81 20 107/64 99 05/18/18 08:14 05/18/18 08:14 05/18/18 08:14 05/18/18 08:14 05/18/18 08:14 - Medications Medications: Current Medications Acetaminophen (Tylenol 325mg Tab) 650 mg PO Q6 PRN PRN Reason: Pain, Mild (1-3) Alendronate Sodium (Fosamax) 70 mg PO FR [facility] Last Admin: 05/15/18 11:17 Dose: 70 mg Amlodipine Besylate (Norvasc) 5 mg PO DAILY [facility] Last Admin: 05/17/18 11:24 Dose: 5 mg Aspirin (Aspirin Chewable) 81 mg PO DAILY [facility] Last Admin: 05/17/18 09:04 Dose: 81 mg Atorvastatin Calcium (Lipitor) 20 mg PO DAILY@2200 [facility] Last Admin: 05/17/18 21:09 Dose: 20 mg Carvedilol (Coreg) 6.25 mg PO BID@0900,2100 [facility] Last Admin: 05/17/18 21:09 Dose: 6.25 mg Docusate Sodium (Colace) 100 mg PO BID [facility] Last Admin: 05/17/18 16:49 Dose: Not Given Enalapril Maleate (Vasotec) 20 mg PO BID [facility] Last Admin: 05/17/18 16:50 Dose: 20 mg Enoxaparin Sodium (Lovenox) 70 mg SC Q12 [facility]; Protocol Last Admin: 05/17/18 21:09 Dose: 70 mg Ferrous Sulfate (Feosol) 325 mg PO TID [facility] Last Admin: 05/17/18 16:49 Dose: Not Given Furosemide (Lasix) 20 mg PO DAILY [facility] Last Admin: 05/17/18 09:06 Dose: 20 mg Guaifenesin (Mucinex [place]) 600 mg PO Q12 [facility] Azithromycin 500 mg/ Sodium (Chloride) 250 mls @ 250 mls/hr IVPB DAILY [facility]; Protocol Last Admin: 05/17/18 09:08 Dose: 250 mls/hr Ceftriaxone Sodium 1 gm/ (Sodium Chloride) 100 mls @ 100 mls/hr IVPB DAILY [facility]; Protocol Last Admin: 05/17/18 09:08 Dose: 100 mls/hr Ipratropium [place] (Atrovent) 0.5 mg IH RQ6 [facility] Last Admin: 05/18/18 07:37 Dose: 0.5 mg Levalbuterol HCl (Xopenex) 0.63 mg INH RQ8 PRN PRN Reason: Wheezing Last Admin: 05/17/18 23:30 Dose: 0.63 mg Metformin HCl (Glucophage) 500 mg PO BID [facility] Last Admin: 05/17/18 16:49 Dose: 500 mg Montelukast Sodium (Singulair) 10 mg PO HS [facility] Last Admin: 05/17/18 21:07 Dose: 10 mg Multivitamins/Minerals (Therapeutic-M Tab) 1 tab PO DAILY [facility] Last Admin: 05/17/18 09:05 Dose: 1 tab Nitroglycerin (Nitro-Bid 2% Oint) 0.5 ea TOP Q6 [facility] Last Admin: 05/18/18 04:45 Dose: 0.5 ea Pantoprazole Sodium (Protonix Ec Tab) 20 mg PO BID [facility] Last Admin: 05/17/18 16:50 Dose: 20 mg Paroxetine HCl (Paxil) 20 mg PO DAILY [facility] Last Admin: 05/17/18 09:04 Dose: 20 mg Simethicone (Mylicon Chew Tab) 80 mg PO TID [facility] Last Admin: 05/17/18 16:49 Dose: 80 mg - Labs Labs: 05/16/18 09:50 05/16/18 09:50 Assessment and Plan (1) Pneumonia Status: Acute (2) Pleural effusion Status: Suspected (3) Hyponatremia Status: Acute (4) Bronchial asthma Status: Chronic
--- NOTE | 2018-05-18 10:04 | CARD ---
APPROVED REPORT Date of service: 05/16/2018 EKG Measurement Heart [id number] <Conclusion> Normal sinus rhythm Low voltage QRS ST & T wave abnormality, consider anterolateral ischemia Prolonged QT Abnormal ECG
--- NOTE | 2018-05-18 10:47 | CARD ---
APPROVED REPORT Date of service: 05/18/2018 EKG Measurement Heart [id number] <Conclusion> Sinus rhythm with occasional premature ventricular complexes ST & T wave abnormality, consider anterolateral ischemia Prolonged QT Abnormal ECG
[2018-05-18 12:01] LABS: BLOOD UREA NITROGEN 11 mg/dl (7-17); CALCIUM 8.5 mg/dL (8.4-10.2); GFR NON-AFRICAN AMERICAN > 60
--- NOTE | 2018-05-18 13:25 | CARD ---
APPROVED REPORT Date of service: 05/18/2018 EXAM: Two-dimensional and M-mode echocardiogram with Doppler and color Doppler. Other Information Quality : GoodRhythm : NSR INDICATION ICD: GA GA 2D DIMENSIONS IVSd1.02 (0.7-1.1cm)LVDd4.02 (3.9-5.9cm) LVOT Diameter1.96 (1.8-2.4cm)PWd0.98 (0.7-1.1cm) IVSs1.15 (0.8-1.2cm)LA Bdilvr35 (18-58mL) LVDs2.50 (2.5-4.0cm)FS (%) 37.7 % PWs1.18 (0.8-1.2cm)SV29.67 ml LVEF (%)47.3 (>50%)CO2.48 L/min M-Mode DIMENSIONS Left Atrium (MM)5.19 (2.5-4.0cm)Aortic Root2.48 (2.2-3.7cm) Aortic Cusp Exc.1.56 (1.5-2.0cm) Aortic Valve AoV Peak Twwatvoj373.4cm/sAoV VTI23.4cmAO Peak GR.5mmHg LVOT Peak Jzhxxutu08.1cm/sLVOT VTI13.06cmAO Mean GR.3mmHg RACHEAL (VMAX)1.90hy8OEZ (VTI)1.00cm2 Mitral Valve E/A ratio0.0 TDI E/Lateral E'0.0E/Medial E'0.0 Tricuspid Valve TR Peak Hfaettrw648mx/sRAP [id number] Peak Gr.49mmHg [id number] LEFT VENTRICLE The left ventricle is normal size. There is normal left ventricular wall thickness. The left ventricular systolic function is mildly reduced. The estimated ejection fraction is 45-50% Apical akinesis and distal anterolateral wall hypokinesis. Transmitral Doppler flow pattern is Grade II-pseudonormal filling dynamics. No left ventricle thrombus noted on this study. There is no ventricular septal defect visualized. There is no left ventricular aneurysm. There is no mass noted in the left ventricle. RIGHT VENTRICLE The right ventricle is normal size. There is normal right ventricular wall thickness. The right ventricular systolic function is normal. ATRIA The left atrium is moderately dilated. The right atrium size is normal. The interatrial septum is intact with no evidence for an atrial septal defect. AORTIC VALVE The aortic valve is normal in structure. No aortic regurgitation is present. There is no aortic valvular stenosis. There is no aortic valvular vegetation. MITRAL VALVE The mitral valve is normal in structure. There is no evidence of mitral valve prolapse. There is no mitral valve stenosis. There is moderate to severe mitral valve regurgitation noted. TRICUSPID VALVE The tricuspid valve is normal in structure. There is severe tricuspid valve regurgitation noted. RVSP is calculated at 66 mm Hg. There is no tricuspid valve prolapse or vegetation. There is no tricuspid valve stenosis. PULMONIC VALVE The pulmonary valve is normal in structure. There is no pulmonic valvular regurgitation. There is no pulmonic valvular stenosis. GREAT VESSELS The aortic root is normal in size. The ascending aorta is normal in size. The pulmonary artery is normal. The IVC is normal in size and collapses >50% with inspiration. PERICARDIAL EFFUSION There is no pericardial effusion. There is no pleural effusion. <Conclusion> The left ventricular systolic function is mildly reduced. The estimated ejection fraction is 45-50%. Apical akinesis and distal anterolateral wall mild hypokinesis. Transmitral Doppler flow pattern is Grade II-pseudonormal filling dynamics. The left atrium is moderately dilated. There is moderate to severe mitral valve regurgitation noted. There is severe tricuspid valve regurgitation noted. RVSP is calculated at 66 mm Hg.
[2018-05-18] MEDS: guaiFENesin 600 mg ER Tab PO SCH ×2 (13:55→21:09)
--- NOTE | 2018-05-18 21:17 | CP.PCM.PN ---
Subjective - Date & Time of Evaluation Date of Evaluation: 05/18/18 Time of Evaluation: 22:22 - Subjective Subjective: Above noted Objective - Vital Signs/Intake and Output Vital Signs (last 24 hours): Temp Pulse Resp BP Pulse Ox 98.1 F 75 18 129/72 97 05/18/18 20:00 05/18/18 21:10 05/18/18 20:00 05/18/18 21:10 05/18/18 20:00 Intake and Output: 05/18/18 05/19/18 18:59 06:59 Intake Total 1300 Balance 1300 - Medications Medications: Current Medications Acetaminophen (Tylenol 325mg Tab) 650 mg PO Q6 PRN PRN Reason: Pain, Mild (1-3) Alendronate Sodium (Fosamax) 70 mg PO FR [facility] Last Admin: 05/15/18 11:17 Dose: 70 mg Amlodipine Besylate (Norvasc) 5 mg PO DAILY [facility] Last Admin: 05/18/18 13:56 Dose: 5 mg Aspirin (Aspirin Chewable) 81 mg PO DAILY [facility] Last Admin: 05/18/18 09:28 Dose: 81 mg Atorvastatin Calcium (Lipitor) 20 mg PO DAILY@2200 [facility] Last Admin: 05/18/18 21:10 Dose: 20 mg Carvedilol (Coreg) 6.25 mg PO BID@0900,2100 [facility] Last Admin: 05/18/18 21:09 Dose: 6.25 mg Docusate Sodium (Colace) 100 mg PO BID [facility] Last Admin: 05/18/18 16:39 Dose: 100 mg Enalapril Maleate (Vasotec) 20 mg PO BID [facility] Last Admin: 05/18/18 16:41 Dose: 20 mg Enoxaparin Sodium (Lovenox) 70 mg SC Q12 [facility]; Protocol Last Admin: 05/18/18 21:07 Dose: 70 mg Ferrous Sulfate (Feosol) 325 mg PO TID [facility] Last Admin: 05/18/18 16:39 Dose: 325 mg Furosemide (Lasix) 20 mg PO DAILY [facility] Last Admin: 05/18/18 09:30 Dose: 20 mg Guaifenesin (Mucinex La) 600 mg PO Q12 [facility] Last Admin: 05/18/18 21:09 Dose: 600 mg Azithromycin 500 mg/ Sodium (Chloride) 250 mls @ 250 mls/hr IVPB DAILY [facility]; Protocol Last Admin: 05/18/18 09:35 Dose: 250 mls/hr Ceftriaxone Sodium 1 gm/ (Sodium Chloride) 100 mls @ 100 mls/hr IVPB DAILY [facility]; Protocol Last Admin: 05/18/18 09:33 Dose: 100 mls/hr Ipratropium [place] (Atrovent) 0.5 mg IH RQ6 [facility] Last Admin: 05/18/18 19:08 Dose: 0.5 mg Levalbuterol HCl (Xopenex) 0.63 mg INH RQ8 PRN PRN Reason: Wheezing Last Admin: 05/18/18 09:57 Dose: 0.63 mg Metformin HCl (Glucophage) 500 mg PO BID [facility] Last Admin: 05/18/18 16:39 Dose: 500 mg Montelukast Sodium (Singulair) 10 mg PO HS [facility] Last Admin: 05/18/18 21:09 Dose: 10 mg Multivitamins/Minerals (Therapeutic-M Tab) 1 tab PO DAILY [facility] Last Admin: 05/18/18 09:36 Dose: 1 tab Nitroglycerin (Nitro-Bid 2% Oint) 0.5 ea TOP Q6 [facility] Last Admin: 05/18/18 21:10 Dose: 0.5 ea Pantoprazole Sodium (Protonix Ec Tab) 20 mg PO BID [facility] Last Admin: 05/18/18 16:40 Dose: 20 mg Paroxetine HCl (Paxil) 20 mg PO DAILY [facility] Last Admin: 05/18/18 09:31 Dose: 20 mg Simethicone (Mylicon Chew Tab) 80 mg PO TID [facility] Last Admin: 05/18/18 16:40 Dose: 80 mg - Labs Labs: 05/16/18 09:50 05/18/18 11:39 - Respiratory Exam Respiratory Exam: NORMAL BREATHING PATTERN - Cardiovascular Exam Cardiovascular Exam: REGULAR RHYTHM - GI/Abdominal Exam GI & Abdominal Exam: Normal Bowel Sounds Assessment and Plan - Assessment and Plan (Free Text) Assessment: Acute ant wall NE + CE CT scan CHF O2 JAYESH B-annia Nitrates ASA Lovenox Cardiology Echo Fall etiol?? 2 to above? 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
--- NOTE | 2018-05-19 00:22 | PN ---
DATE: 05/18/2018 NEUROLOGY PROGRESS NOTE SUBJECTIVE: The patient is lying on the bed, in no acute distress. Denies having any headache or dizziness. PHYSICAL EXAMINATION: VITAL SIGNS: Her blood pressure is 131/78, heart rate 77 per minute, breathing at a rate of 16 per minute, temperature is 98.1 degrees Fahrenheit. HEENT: Head is normocephalic and atraumatic. NECK: Supple. There are no carotid bruits. LUNGS: Clear. CARDIOVASCULAR SYSTEM EXAM: S1 and S2 audible. No murmurs. ABDOMEN: Soft and nontender with bowel sounds present. NEUROLOGIC EXAMINATION: Mental status: The patient is awake and alert, oriented to place and month, pleasant. She follows all simple commands. Cranial nerve examination: Pupils 3 mm bilaterally, reactive to light. Visual funes are full. Extraocular movements are intact. There is no facial asymmetry. Palate is upgoing bilaterally, and tongue is midline. Motor examination: Tone is normal. Power is 4/5 bilaterally in all extremities. Plantars downgoing bilaterally. LABORATORY DATA: Labs reviewed. Vitamin B12 is 946. IMPRESSION: 1. Status post altered mental status due to toxic metabolic encephalopathy. 2. Status post fall. 3. Hyponatremia. 4. Pneumonia. RECOMMENDATIONS: 1. The patient's mental status is significantly better. 2. The patient's sodium is improving slowly. 3. The patient to be continued on IV antibiotics. 4. The patient will have an electroencephalogram if not already done. 5. Please continue supportive care and the treatment. Thank you for the opportunity to participate in the care of this patient. Bonifacio Patel MD
[2018-05-19] MEDS: Ipratropium 0.02% Inhal Soln (0.5 mg/2.5 ml) UD IH SCH ×3 (01:27→13:15)
[2018-05-19] MEDS: Nitroglycerin 2% Ointment Foilpak UD TOP SCH ×3 (05:33→16:06)
[2018-05-19 09:13] VITALS: RESP 18
--- NOTE | 2018-05-19 09:42 | CARD ---
APPROVED REPORT EKG Measurement Heart [id number] <Conclusion> Normal sinus rhythm Incomplete RBBB Possible Left atrial enlargement
--- NOTE | 2018-05-19 10:10 | CP.PCM.PN ---
Subjective - Date & Time of Evaluation Date of Evaluation: 05/19/18 Time of Evaluation: 08:30 - Subjective Subjective: NO CHEST PAIN AND DENIES SOB Objective - Vital Signs/Intake and Output Vital Signs (last 24 hours): Temp Pulse Resp BP Pulse Ox 97.0 F L 78 18 174/96 H 96 05/19/18 09:13 05/19/18 09:13 05/19/18 09:13 05/19/18 09:13 05/19/18 09:13 - Medications Medications: Current Medications Acetaminophen (Tylenol 325mg Tab) 650 mg PO Q6 PRN PRN Reason: Pain, Mild (1-3) Alendronate Sodium (Fosamax) 70 mg PO FR [facility] Last Admin: 05/15/18 11:17 Dose: 70 mg Amlodipine Besylate (Norvasc) 5 mg PO DAILY [facility] Last Admin: 05/18/18 13:56 Dose: 5 mg Aspirin (Aspirin Chewable) 81 mg PO DAILY [facility] Last Admin: 05/18/18 09:28 Dose: 81 mg Atorvastatin Calcium (Lipitor) 20 mg PO DAILY@2200 [facility] Last Admin: 05/18/18 21:10 Dose: 20 mg Carvedilol (Coreg) 6.25 mg PO BID@0900,2100 [facility] Last Admin: 05/18/18 21:09 Dose: 6.25 mg Docusate Sodium (Colace) 100 mg PO BID [facility] Last Admin: 05/18/18 16:39 Dose: 100 mg Enalapril Maleate (Vasotec) 20 mg PO BID [facility] Last Admin: 05/18/18 16:41 Dose: 20 mg Enoxaparin Sodium (Lovenox) 70 mg SC Q12 [facility]; Protocol Last Admin: 05/18/18 21:07 Dose: 70 mg Ferrous Sulfate (Feosol) 325 mg PO TID [facility] Last Admin: 05/18/18 16:39 Dose: 325 mg Furosemide (Lasix) 20 mg PO DAILY [facility] Last Admin: 05/18/18 09:30 Dose: 20 mg Guaifenesin (Mucinex La) 600 mg PO Q12 [facility] Last Admin: 05/18/18 21:09 Dose: 600 mg Azithromycin 500 mg/ Sodium (Chloride) 250 mls @ 250 mls/hr IVPB DAILY [facility]; Protocol Last Admin: 05/18/18 09:35 Dose: 250 mls/hr Ceftriaxone Sodium 1 gm/ (Sodium Chloride) 100 mls @ 100 mls/hr IVPB DAILY [facility]; Protocol Last Admin: 05/18/18 09:33 Dose: 100 mls/hr Ipratropium [place] (Atrovent) 0.5 mg IH RQ6 [facility] Last Admin: 05/19/18 07:22 Dose: 0.5 mg Levalbuterol HCl (Xopenex) 0.63 mg INH RQ8 PRN PRN Reason: Wheezing Last Admin: 05/18/18 09:57 Dose: 0.63 mg Metformin HCl (Glucophage) 500 mg PO BID [facility] Last Admin: 05/18/18 16:39 Dose: 500 mg Montelukast Sodium (Singulair) 10 mg PO HS [facility] Last Admin: 05/18/18 21:09 Dose: 10 mg Multivitamins/Minerals (Therapeutic-M Tab) 1 tab PO DAILY [facility] Last Admin: 05/18/18 09:36 Dose: 1 tab Nitroglycerin (Nitro-Bid 2% Oint) 0.5 ea TOP Q6 [facility] Last Admin: 05/19/18 05:33 Dose: 0.5 ea Pantoprazole Sodium (Protonix Ec Tab) 20 mg PO BID [facility] Last Admin: 05/18/18 16:40 Dose: 20 mg Paroxetine HCl (Paxil) 20 mg PO DAILY [facility] Last Admin: 05/18/18 09:31 Dose: 20 mg Simethicone (Mylicon Chew Tab) 80 mg PO TID [facility] Last Admin: 05/18/18 16:40 Dose: 80 mg - Labs Labs: 05/16/18 09:50 05/18/18 11:39 - Respiratory Exam Respiratory Exam: Decreased Breath Sounds - Cardiovascular Exam Cardiovascular Exam: REGULAR RHYTHM, +S1, +S2 - Extremities Exam Extremities Exam: Normal Inspection - Additional Findings Additional findings: HIDE SPLITTER NSR ECHO LVEF ~ 40-45%, AW AKINESIS, ALW HYPOKINESIS, MR AND TR Assessment and Plan - Assessment and Plan (Free Text) Assessment: AWMI-CHEST PAIN FREE ACUTE CHF-SYSTOLIC AND DIASTOLIC COPD WITH PNEUMONIA HYPERTENSION Plan: THE PATIENT STILL DECLINES A CARDIAC CATH AND ONLY WANTS CONSERVATIVE MEDICAL TX CONTINUE ASPIRIN, CARVEDILOL, FUROSEMIDE, ENALAPRIL, AMLODIPINE, NITRATES, LOVENOX, ATORVASTATIN, COPD MEDS AND ANTIBIOTICS
--- NOTE | 2018-05-19 10:20 | CP.PCM.PN ---
Subjective - Date & Time of Evaluation Date of Evaluation: 05/19/18 Time of Evaluation: 10:19 - Subjective Subjective: patient awake and conscious not in acute distress. Vital sign noted to be stable Objective - Vital Signs/Intake and Output Vital Signs (last 24 hours): Temp Pulse Resp BP Pulse Ox 97.0 F L 78 18 174/96 H 96 05/19/18 09:13 05/19/18 09:13 05/19/18 09:13 05/19/18 09:13 05/19/18 09:13 - Medications Medications: Current Medications Acetaminophen (Tylenol 325mg Tab) 650 mg PO Q6 PRN PRN Reason: Pain, Mild (1-3) Alendronate Sodium (Fosamax) 70 mg PO FR [facility] Last Admin: 05/15/18 11:17 Dose: 70 mg Amlodipine Besylate (Norvasc) 5 mg PO DAILY [facility] Last Admin: 05/18/18 13:56 Dose: 5 mg Aspirin (Aspirin Chewable) 81 mg PO DAILY [facility] Last Admin: 05/18/18 09:28 Dose: 81 mg Atorvastatin Calcium (Lipitor) 20 mg PO DAILY@2200 [facility] Last Admin: 05/18/18 21:10 Dose: 20 mg Carvedilol (Coreg) 6.25 mg PO BID@0900,2100 [facility] Last Admin: 05/18/18 21:09 Dose: 6.25 mg Docusate Sodium (Colace) 100 mg PO BID [facility] Last Admin: 05/18/18 16:39 Dose: 100 mg Enalapril Maleate (Vasotec) 20 mg PO BID [facility] Last Admin: 05/18/18 16:41 Dose: 20 mg Ferrous Sulfate (Feosol) 325 mg PO TID [facility] Last Admin: 05/18/18 16:39 Dose: 325 mg Furosemide (Lasix) 20 mg PO DAILY [facility] Last Admin: 05/18/18 09:30 Dose: 20 mg Guaifenesin (Mucinex La) 600 mg PO Q12 [facility] Last Admin: 05/18/18 21:09 Dose: 600 mg Azithromycin 500 mg/ Sodium (Chloride) 250 mls @ 250 mls/hr IVPB DAILY [facility]; Protocol Last Admin: 05/18/18 09:35 Dose: 250 mls/hr Ceftriaxone Sodium 1 gm/ (Sodium Chloride) 100 mls @ 100 mls/hr IVPB DAILY [facility]; Protocol Last Admin: 05/18/18 09:33 Dose: 100 mls/hr Ipratropium [place] (Atrovent) 0.5 mg IH RQ6 [facility] Last Admin: 05/19/18 07:22 Dose: 0.5 mg Levalbuterol HCl (Xopenex) 0.63 mg INH RQ8 PRN PRN Reason: Wheezing Last Admin: 05/18/18 09:57 Dose: 0.63 mg Metformin HCl (Glucophage) 500 mg PO BID [facility] Last Admin: 05/18/18 16:39 Dose: 500 mg Montelukast Sodium (Singulair) 10 mg PO HS [facility] Last Admin: 05/18/18 21:09 Dose: 10 mg Multivitamins/Minerals (Therapeutic-M Tab) 1 tab PO DAILY [facility] Last Admin: 05/18/18 09:36 Dose: 1 tab Nitroglycerin (Nitro-Bid 2% Oint) 0.5 ea TOP Q6 [facility] Last Admin: 05/19/18 05:33 Dose: 0.5 ea Pantoprazole Sodium (Protonix Ec Tab) 20 mg PO BID [facility] Last Admin: 05/18/18 16:40 Dose: 20 mg Paroxetine HCl (Paxil) 20 mg PO DAILY [facility] Last Admin: 05/18/18 09:31 Dose: 20 mg Simethicone (Mylicon Chew Tab) 80 mg PO TID [facility] Last Admin: 05/18/18 16:40 Dose: 80 mg - Labs Labs: 05/16/18 09:50 05/18/18 11:39 - Constitutional Appears: No Acute Distress - Eye Exam Eye Exam: Conjunctival injection - ENT Exam ENT Exam: Mucous Membranes Moist - Neck Exam Neck Exam: absent: Lymphadenopathy - Respiratory Exam Respiratory Exam: NORMAL BREATHING PATTERN. absent: Rales - Cardiovascular Exam Cardiovascular Exam: absent: Gallop, JVD, Rubs - GI/Abdominal Exam GI & Abdominal Exam: Soft, Normal Bowel Sounds - Extremities Exam Extremities Exam: absent: Calf Tenderness - Back Exam Back Exam: absent: CVA tenderness (L), CVA tenderness (R) - Neurological Exam Neurological Exam: Alert - Psychiatric Exam Psychiatric exam: Normal Affect - Skin Skin Exam: absent: Cyanosis Assessment and Plan (1) Hyponatremia Assessment & Plan: hyponatremia The last serum sodium was 3 days ago we will repeat BMP stat ? NSTEMI Pneumonia Fall, DM, HTN, hyperlipidemia, anemia the plan Serum sodium up to 131 Patient appears to be stable as noted by cardiology . Continue monitoring As per primary team Status: Acute (2) Contusion, hip Status: Acute
[2018-05-19] MEDS: Azithromycin 500 MG in Sodium Chloride 0.9% 250 ML IVPB SCH (10:40)
[2018-05-19] MEDS: guaiFENesin 600 mg ER Tab PO SCH (10:46)
[2018-05-19] MEDS: Simethicone 80 mg Chewtab PO SCH ×2 (10:46→15:18)
[2018-05-19] MEDS: Pantoprazole 20 mg EC Tab PO SCH (10:49)
[2018-05-19] MEDS: Multivitamin With Minerals Tab PO SCH (10:49)
--- NOTE | 2018-05-19 15:30 | PCM.EEG ---
Electroencephalogram Report - Electroencephalogram Report Procedure Date: 05/15/18 Medication: ASA, Lasix, Atorvastatin. Interpretation: Technical Information: This was a 16 -channel EEG, 1-channel EKG routine EEG performed using an [employer] A/S machine. Electrodes were applied using the 10/20 international placement system. Study start; 14;10 Study end; 15;02 Total; 52 minutes Clinical Information: 88 y/o woman with alter mental status. Findings; During resting wakefulness there was a symmetric posterior dominant rhythm at 7 Hz, 30-50 uV, which was reactive to eye opening and closing better developed on the left. Drowsiness was associated with fragmentation of the posterior dominant rhythm and with slow roving eye movements. 14;34 PM There were freqeunt runs of sharp waves with triphasic morphology seen, mainly on the right, but occasionally bilateral. Sleep was not seen. There were occasional bursts of bi frontal paroxysmal activity at 4 Hz, lasting less than 1 to 5 second, this was seen during wakefulness and drowsiness bilateral right more than left. FIRDA NO organized seizure activity was seen. Hyperventilation was not performed. Photic stimulation was performed and there were no changes on the record. Focal abnormality; right hemispheric focal slowing at 5 to 6 Hz was seen. ECG was associated with a normal sinus rhythm. Impression: This is an abnormal EEG record, consistent with a moderate diffuse disturbance of cortical activity, in keeping with a diffuse eaton matter dysfunction; these findings do not support a specific etiology, however, given the presence of triphasic sharp waves, these findings are usually seen in toxic-metabolic encephalopathies. The findings also support the diagnosis of a focal cortical abnormality involving the right hemisphere, this should be correlated with the patient's brain imaging.
[2018-05-19 16:46] VITALS: BP 120/67; PULSE 78; TEMP 98.4; O2SAT 100
[2018-05-20] MEDS ORDERED: Enoxaparin 40 mg Syringe SC SCH (09:00)
== END 2018-05-19 17:30 | DRG 871 ==
LOC: H.ER 12:06 → H.ERHOLD 17:14 → H.TEL 22:31
PROVIDERS: ADMIT Family Medicine Geriatric Medicine; ATTEND Family Medicine Geriatric Medicine
DX: A41.9 Sepsis, unspecified organism (principal); G92 Toxic encephalopathy; J18.9 Pneumonia, unspecified organism; I50.43 Acute on chronic combined systolic (congestive) and diastolic (congestive) heart failure; I21.09 ST elevation (STEMI) myocardial infarction involving other coronary artery of anterior wall; E22.2 Syndrome of inappropriate secretion of antidiuretic hormone; J44.0 Chronic obstructive pulmonary disease with (acute) lower respiratory infection; E87.2 Acidosis; I11.0 Hypertensive heart disease with heart failure; F41.9 Anxiety disorder, unspecified; I25.10 Atherosclerotic heart disease of native coronary artery without angina pectoris; E78.00 Pure hypercholesterolemia, unspecified; E11.65 Type 2 diabetes mellitus with hyperglycemia; S09.90XA Unspecified injury of head, initial encounter; Z87.891 Personal history of nicotine dependence; S70.00XA Contusion of unspecified hip, initial encounter; W19.XXXA Unspecified fall, initial encounter; E78.5 Hyperlipidemia, unspecified; Z86.73 Personal history of transient ischemic attack (TIA), and cerebral infarction without residual deficits; D64.9 Anemia, unspecified; Z53.20 Procedure and treatment not carried out because of patient's decision for unspecified reasons; F32.9 Major depressive disorder, single episode, unspecified; Z79.84 Long term (current) use of oral hypoglycemic drugs

== ENCOUNTER 2018-05-19 14:15 | Inpatient (IN) | payer OTHER, MEDICAID ==
[2018-05-19 14:34] VITALS: BMI 27.4
[2018-05-19] MEDS ORDERED: Simethicone 80 mg Chewtab PO PRN (17:44)
[2018-05-19] MEDS: Ipratropium 0.02% Inhal Soln (0.5 mg/2.5 ml) UD IH SCH (19:27)
--- NOTE | 2018-05-19 20:27 | CP.PCM.PN ---
Subjective - Date & Time of Evaluation Date of Evaluation: 05/19/18 Time of Evaluation: 22:22 - Subjective Subjective: 88 yo s/p acute ant wall NE admitted for rehab Objective - Vital Signs/Intake and Output Vital Signs (last 24 hours): Temp Pulse Resp BP Pulse Ox 97.9 F 87 20 152/85 H 97 05/19/18 19:50 05/19/18 19:50 05/19/18 19:50 05/19/18 19:50 05/19/18 19:50 - Medications Medications: Current Medications Alendronate Sodium (Fosamax) 70 mg PO FR [facility] Amlodipine Besylate (Norvasc) 5 mg PO DAILY [facility] Aspirin (Aspirin Chewable) 81 mg PO DAILY [facility] Atorvastatin Calcium (Lipitor) 10 mg PO HS [facility] Carvedilol (Coreg) 3.125 mg PO Q12H [facility] Last Admin: 05/19/18 18:11 Dose: Not Given Docusate Sodium (Colace) 100 mg PO BID [facility] Enalapril Maleate (Vasotec) 20 mg PO DAILY [facility] Enoxaparin Sodium (Lovenox) 40 mg SC DAILY [facility]; Protocol Ferrous Sulfate (Feosol) 325 mg PO TID [facility] Furosemide (Lasix) 20 mg PO DAILY [facility] Guaifenesin (Mucinex La) 600 mg PO Q12 [facility] Ceftriaxone Sodium 1 gm/ (Sodium Chloride) 100 mls @ 100 mls/hr IVPB DAILY [facility] Azithromycin 500 mg/ Sodium (Chloride) 250 mls @ 250 mls/hr IVPB DAILY [facility] Ipratropium [place] (Atrovent) 0.5 mg IH RQ6 [facility] Last Admin: 05/19/18 19:27 Dose: 0.5 mg Levalbuterol HCl (Xopenex) 0.63 mg INH RQ8 PRN PRN Reason: Wheezing Metformin HCl (Glucophage) 500 mg PO BID [facility] Montelukast Sodium (Singulair) 10 mg PO HS [facility] Multivitamins/Minerals (Therapeutic-M Tab) 1 tab PO DAILY [facility] Nitroglycerin (Nitro-Bid 2% Oint) 1 ea TOP Q6 [facility] Pantoprazole Sodium (Protonix Ec Tab) 20 mg PO BID [facility] Paroxetine HCl (Paxil) 20 mg PO DAILY [facility] Simethicone (Mylicon Chew Tab) 80 mg PO Q8 PRN PRN Reason: Flatulence - Respiratory Exam Respiratory Exam: NORMAL BREATHING PATTERN - Cardiovascular Exam Cardiovascular Exam: REGULAR RHYTHM - GI/Abdominal Exam GI & Abdominal Exam: Normal Bowel Sounds Assessment and Plan - Assessment and Plan (Free Text) Assessment: Acute ant wall NE + CE CT scan CHF O2 JAYESH B-annia Nitrates ASA Lovenox Cardiology Echo Fall etiol?? 2 to above? 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
[2018-05-19] MEDS: guaiFENesin 600 mg ER Tab PO SCH (21:09)
[2018-05-19] MEDS: Nitroglycerin 2% Ointment Foilpak UD TOP SCH (22:28)
[2018-05-20] MEDS: Ipratropium 0.02% Inhal Soln (0.5 mg/2.5 ml) UD IH SCH ×5 (00:59→19:09)
[2018-05-20] MEDS: Levalbuterol 0.63 MG/3 ML Inhal Soln UD INH PRN (00:59)
[2018-05-20] MEDS: AZITHROMYCIN 500 MG/NS 250 ML IVPB SCH (04:30)
[2018-05-20] MEDS: Nitroglycerin 2% Ointment Foilpak UD TOP SCH ×4 (04:48→21:18)
[2018-05-20 06:36] LABS: HEMOGLOBIN 10.8 g/dL (12.0-16.0); MEAN CELL VOLUME 98.5 fl (81.0-99.0); MEAN CORPUSCULAR HEMOGLOBIN 32.7 pg (27.0-31.0); MEAN CORPUSCULAR HGB CONC 33.2 g/dL (33.0-37.0); RBC 3.31 Mil/uL (3.80-5.20); RED CELL DISTRIBUTION WIDTH 13.9 % (11.5-14.5); WHITE BLOOD COUNT 7.5 K/uL (4.8-10.8)
[2018-05-20 06:48] LABS: BLOOD UREA NITROGEN 8 mg/dl (7-17); CALCIUM 8.2 mg/dL (8.4-10.2); GFR NON-AFRICAN AMERICAN > 60
[2018-05-20] MEDS ORDERED: Albuterol 0.083% Inhal Sol (2.5 mg/3 mL) UD INH STA (07:27)
[2018-05-20] MEDS ORDERED: cefTRIAXone IV 1 gm in Dextros 50 ML BAG IVPB SCH (09:00)
[2018-05-20] MEDS: Enoxaparin 40 mg Syringe SC SCH (09:05)
[2018-05-20] MEDS: guaiFENesin 600 mg ER Tab PO SCH ×2 (09:06→21:17)
[2018-05-20] MEDS: Pantoprazole 20 mg EC Tab PO SCH ×2 (09:07→17:16)
[2018-05-20] MEDS: Multivitamin With Minerals Tab PO SCH (09:07)
[2018-05-20 09:13] LABS: SQUAMOUS EPITHIAL 9 /hpf (0-5); URINE BILIRUBIN NEGATIVE (NEGATIVE); URINE BLOOD NEGATIVE (NEGATIVE); URINE CLARITY SLIGHTY-CLOUDY (Clear); URINE COLOR YELLOW (YELLOW); URINE GLUCOSE (UA) NEG (Normal); URINE LEUKOCYTE ESTERASE SMALL Leu/uL (Negative); URINE PROTEIN NEGATIVE (NEGATIVE); URINE UROBILINOGEN 0.2-1.0 mg/dL (0.2-1.0)
--- NOTE | 2018-05-20 09:21 | CP.PCM.CON ---
History of Present Illness - History of Present Illness History of Present Illness: The patient is seen in followup consultation from telemetry. She had been admitted with pneumonia and exacerbation of her bronchial asthma. She has been doing well with the medical regimen prescribed and was discharged to continue tr eatment in the transitional care unit. She was noted today to have some residual wheezing which responded to a change in her aerosol therapy. Past Patient History - Past Medical History & Family History Past Medical History?: Yes - Past Social History Smoking Status: Former Smoker - CARDIAC Hx Congestive Heart Failure: Yes Hx Hypercholesterolemia: Yes Hx Hypertension: Yes - PULMONARY Hx Asthma: Yes Hx Bronchitis: Yes - NEUROLOGICAL Hx Neurological Disorder: No - HEENT Hx HEENT Problems: No - RENAL Hx Chronic Kidney Disease: No - ENDOCRINE/METABOLIC Hx Endocrine Disorders: No - HEMATOLOGICAL/ONCOLOGICAL Hx Blood Disorders: No - INTEGUMENTARY Hx Dermatological Problems: No - MUSCULOSKELETAL/RHEUMATOLOGICAL Hx Falls: Yes - GASTROINTESTINAL Hx Gastrointestinal Disorders: No Hx Pancreatitis: No - GENITOURINARY/GYNECOLOGICAL Hx Genitourinary Disorders: No - PSYCHIATRIC Hx Anxiety: Yes Hx Paranoia: Yes Hx Substance Use: No - SURGICAL HISTORY Hx Surgeries: No - ANESTHESIA Hx Anesthesia: Yes Hx Anesthesia Reactions: No Hx Malignant Hyperthermia: No Meds Allergies/Adverse Reactions: Allergies Allergy/AdvReac Type Severity Reaction Status Date / Time No Known Allergies Allergy Verified 05/19/18 14:34 - Medications Medications: Current Medications Alendronate Sodium (Fosamax) 70 mg PO [facility] Amlodipine Besylate (Norvasc) 5 mg PO DAILY [facility] Last Admin: 05/20/18 09:06 Dose: 5 mg Aspirin (Aspirin Chewable) 81 mg PO DAILY [facility] Last Admin: 05/20/18 09:03 Dose: 81 mg Atorvastatin Calcium (Lipitor) 10 mg PO HS [facility] Last Admin: 05/19/18 22:28 Dose: 10 mg Carvedilol (Coreg) 3.125 mg PO Q12@0900,2100 [facility] Last Admin: 05/20/18 09:04 Dose: 3.125 mg Docusate Sodium (Colace) 100 mg PO BID [facility] Last Admin: 05/20/18 09:03 Dose: 100 mg Enalapril Maleate (Vasotec) 20 mg PO DAILY [facility] Last Admin: 05/20/18 09:07 Dose: 20 mg Enoxaparin Sodium (Lovenox) 40 mg SC DAILY [facility]; Protocol Last Admin: 05/20/18 09:05 Dose: 40 mg Ferrous Sulfate (Feosol) 325 mg PO TID [facility] Last Admin: 05/20/18 09:05 Dose: 325 mg Furosemide (Lasix) 20 mg PO DAILY [facility] Last Admin: 05/20/18 09:05 Dose: 20 mg Guaifenesin (Mucinex La) 600 mg PO Q12 [facility] Last Admin: 05/20/18 09:06 Dose: 600 mg Ceftriaxone Sodium 1 gm/ (Sodium Chloride) 100 mls @ 100 mls/hr IVPB DAILY@0600 [facility] Last Admin: 05/20/18 05:57 Dose: 100 mls/hr Azithromycin 500 mg/ Sodium (Chloride) 250 mls @ 250 mls/hr IVPB DAILY@0500 [facility] Last Admin: 05/20/18 04:30 Dose: 250 mls/hr Ipratropium [place] (Atrovent) 0.5 mg IH RQ6 [facility] Last Admin: 05/20/18 07:15 Dose: 0.5 mg Levalbuterol HCl (Xopenex) 0.63 mg INH RQ8 PRN PRN Reason: Wheezing Last Admin: 05/20/18 00:59 Dose: 0.63 mg Metformin HCl (Glucophage) 500 mg PO BID [facility] Last Admin: 05/20/18 09:05 Dose: 500 mg Montelukast Sodium (Singulair) 10 mg PO HS [facility] Last Admin: 05/19/18 21:11 Dose: 10 mg Multivitamins/Minerals (Therapeutic-M Tab) 1 tab PO DAILY [facility] Last Admin: 05/20/18 09:07 Dose: 1 tab Nitroglycerin (Nitro-Bid 2% Oint) 1 ea TOP Q6 [facility] Last Admin: 05/20/18 09:07 Dose: 1 ea Pantoprazole Sodium (Protonix Ec Tab) 20 mg PO BID [facility] Last Admin: 05/20/18 09:07 Dose: 20 mg Paroxetine HCl (Paxil) 20 mg PO DAILY [facility] Last Admin: 05/20/18 09:06 Dose: 20 mg Simethicone (Mylicon Chew Tab) 80 mg PO Q8 PRN PRN Reason: Flatulence Physical Exam - Additional Findings Additional findings: Thin, elderly female lying in bed in no distress. Pharynx is pink and mucous membranes are moist. Conjunctivae appear injected bilaterally. No scleral icterus. Nasal passages are patent bilaterally. Neck is supple and trachea appears midline. No dullness on percussion of the anterior thorax. No subcutaneous emphysema. Breath sounds are heard equally in both lungs with scattered wheezing. Few dry rales rales are heard posteriorly in the area of the right upper lobe. Heart sounds appeared to be distant rhythm was regular. Abdomen appeared soft and nontender with normal bowel sounds. No dependent edema is noted of the right lower extremities. Results - Vital Signs Recent Vital Signs: Last Vital Signs Temp 98.1 F 05/20/18 08:16 Pulse 90 05/20/18 09:07 Resp 18 05/20/18 08:16 BP 179/69 H 05/20/18 09:07 Pulse Ox 97 05/20/18 08:16 - Labs Result Diagrams: 05/20/18 06:12 05/20/18 06:12 Labs: Laboratory Results - last 24 hr 05/19/18 05/20/18 05/20/18 20:42 05:27 06:12 WBC 7.5 RBC 3.31 L Hgb 10.8 L Hct 32.5 L MCV 98.5 D MCH 32.7 H MCHC 33.2 RDW 13.9 Plt Count 287 Sodium Potassium Chloride Carbon Dioxide Anion Gap BUN Creatinine Est GFR ( Amer) Est GFR (Non-Af Amer) POC Glucose (mg/dL) 159 H 122 H Random Glucose Calcium Urine Color Urine Clarity Urine pH Ur Specific [place] Urine Protein Urine Glucose (UA) Urine Ketones Urine Blood Urine Nitrate Urine Bilirubin Urine Urobilinogen Ur Leukocyte Esterase Urine RBC (Auto) Urine Microscopic WBC Ur Squamous Epith Cells Ur Transition Epith Cell 05/20/18 05/20/18 06:12 08:59 WBC RBC Hgb Hct MCV MCH MCHC RDW Plt Count Sodium 132 Potassium 4.3 Chloride 96 L Carbon Dioxide 29 Anion Gap 11 BUN 8 Creatinine 0.4 L Est GFR ( Amer) > 60 Est GFR (Non-Af Amer) > 60 POC Glucose (mg/dL) Random Glucose 126 H Calcium 8.2 L Urine Color Yellow Urine Clarity Slighty-cloudy Urine pH 7.0 Ur Specific [place] 1.009 Urine Protein Negative Urine Glucose (UA) Neg Urine Ketones Negative Urine Blood Negative Urine Nitrate Negative Urine Bilirubin Negative Urine Urobilinogen 0.2-1.0 Ur Leukocyte Esterase Small Urine RBC (Auto) < 1 Urine Microscopic WBC 3 Ur Squamous Epith Cells 9 H Ur Transition Epith Cell 2 Assessment & Plan (1) Pneumonia Status: Acute Priority: High (2) Bronchial asthma Status: Chronic Priority: High (3) Pleural effusion Status: Acute Priority: High - Assessment and Plan (Free Text) Plan: Continue maintenance respiratory therapy. Follow up chest x-ray. - Date & Time Date: 05/20/18 Time: 09:20
--- NOTE | 2018-05-20 11:58 | RAD ---
Date of service: 05/20/2018 HISTORY: pneumonia COMPARISON: 05/14/2018 FINDINGS: LUNGS: There is interval development of dense consolidation in the right lower lobe. There is severe pulmonary venous congestion. PLEURA: Suspect small effusions. No pneumothorax. CARDIOVASCULAR: Persistent moderate cardiomegaly. Atherosclerotic aortic arch calcifications are present. OSSEOUS STRUCTURES: Within normal limits for the patient's age. Old fracture deformity in the right proximal humerus. VISUALIZED UPPER ABDOMEN: Normal. OTHER FINDINGS: None. IMPRESSION: Interval development of consolidation in the right lower lobe. Persistent cardiomegaly, severe pulmonary venous congestion and suspect small effusions.
[2018-05-20] MEDS: Albuterol 0.083% Inhal Sol (2.5 mg/3 mL) UD INH SCH ×3 (11:59→19:09)
--- NOTE | 2018-05-20 12:45 | CP.PCM.CON ---
History of Present Illness - History of Present Illness History of Present Illness: THE PATIENT IS AN 88 YEAR OLD FEMALE WHO WAS ADMITTED TO [facility] LAST WEEK AFTER A FALL AND FOUND TO HAVE AN AWMI AND PNEUMONIA. SHE ALSO HAS A HISTORY OF COPD, HYPERTENSION AND COPD. SHE DECLINED INVASIVE CARDIAC TREATMENT WITH A CARDIAC CATH TO SEE IF SHE NEEDED CORONARY ARTERY STENTING AND WAS THUS TREATED CONSERVATIVELY WITH MEDICATIONS. SHE DID NOT HAVE CHEST PAIN AT THAT TIME AND CONTINUES TO BE CHEST PAIN FREE. SHE IS NOW ADMITTED TO TCU TO FINISH HER ANTIBIOTICS AND HAVE SUBACUTE REHAB AND I HAVE BEEN ASKED TO FOLLOW HER. Past Patient History - Past Medical History & Family History Past Medical History?: Yes - Past Social History Smoking Status: Former Smoker - CARDIAC Hx Congestive Heart Failure: Yes Hx Hypercholesterolemia: Yes Hx Hypertension: Yes - PULMONARY Hx Asthma: Yes Hx Bronchitis: Yes - NEUROLOGICAL Hx Neurological Disorder: No - HEENT Hx HEENT Problems: No - RENAL Hx Chronic Kidney Disease: No - ENDOCRINE/METABOLIC Hx Endocrine Disorders: No - HEMATOLOGICAL/ONCOLOGICAL Hx Blood Disorders: No - INTEGUMENTARY Hx Dermatological Problems: No - MUSCULOSKELETAL/RHEUMATOLOGICAL Hx Falls: Yes - GASTROINTESTINAL Hx Gastrointestinal Disorders: No Hx Pancreatitis: No - GENITOURINARY/GYNECOLOGICAL Hx Genitourinary Disorders: No - PSYCHIATRIC Hx Anxiety: Yes Hx Paranoia: Yes Hx Substance Use: No - SURGICAL HISTORY Hx Surgeries: No - ANESTHESIA Hx Anesthesia: Yes Hx Anesthesia Reactions: No Hx Malignant Hyperthermia: No Meds Allergies/Adverse Reactions: Allergies Allergy/AdvReac Type Severity Reaction Status Date / Time No Known Allergies Allergy Verified 05/19/18 14:34 - Medications Medications: Current Medications Albuterol Sulfate (Albuterol 0.083% Inhal [place] (2.5 Mg/3 Ml) Ud) 2.5 mg INH RQID [facility] Last Admin: 05/20/18 11:59 Dose: 2.5 mg Alendronate Sodium (Fosamax) 70 mg PO FR [facility] Amlodipine Besylate (Norvasc) 5 mg PO DAILY [facility] Last Admin: 05/20/18 09:06 Dose: 5 mg Aspirin (Aspirin Chewable) 81 mg PO DAILY [facility] Last Admin: 05/20/18 09:03 Dose: 81 mg Atorvastatin Calcium (Lipitor) 10 mg PO HS [facility] Last Admin: 05/19/18 22:28 Dose: 10 mg Carvedilol (Coreg) 3.125 mg PO Q12@0900,2100 [facility] Last Admin: 05/20/18 09:04 Dose: 3.125 mg Docusate Sodium (Colace) 100 mg PO BID [facility] Last Admin: 05/20/18 09:03 Dose: 100 mg Enalapril Maleate (Vasotec) 20 mg PO DAILY [facility] Last Admin: 05/20/18 09:07 Dose: 20 mg Enoxaparin Sodium (Lovenox) 40 mg SC DAILY [facility]; Protocol Last Admin: 05/20/18 09:05 Dose: 40 mg Ferrous Sulfate (Feosol) 325 mg PO TID [facility] Last Admin: 05/20/18 12:11 Dose: 325 mg Furosemide (Lasix) 20 mg PO DAILY [facility] Last Admin: 05/20/18 09:05 Dose: 20 mg Guaifenesin (Mucinex La) 600 mg PO Q12 [facility] Last Admin: 05/20/18 09:06 Dose: 600 mg Ceftriaxone Sodium 1 gm/ (Sodium Chloride) 100 mls @ 100 mls/hr IVPB DAILY@0600 [facility] Last Admin: 05/20/18 05:57 Dose: 100 mls/hr Azithromycin 500 mg/ Sodium (Chloride) 250 mls @ 250 mls/hr IVPB DAILY@0500 [facility] Last Admin: 05/20/18 04:30 Dose: 250 mls/hr Ipratropium [place] (Atrovent) 0.5 mg IH RQID [facility] Last Admin: 05/20/18 11:59 Dose: 0.5 mg Levalbuterol HCl (Xopenex) 0.63 mg INH RQ8 PRN PRN Reason: Wheezing Last Admin: 05/20/18 00:59 Dose: 0.63 mg Metformin HCl (Glucophage) 500 mg PO BID [facility] Last Admin: 05/20/18 09:05 Dose: 500 mg Montelukast Sodium (Singulair) 10 mg PO HS [facility] Last Admin: 05/19/18 21:11 Dose: 10 mg Multivitamins/Minerals (Therapeutic-M Tab) 1 tab PO DAILY [facility] Last Admin: 05/20/18 09:07 Dose: 1 tab Nitroglycerin (Nitro-Bid 2% Oint) 1 ea TOP Q6 [facility] Last Admin: 05/20/18 09:07 Dose: 1 ea Pantoprazole Sodium (Protonix Ec Tab) 20 mg PO BID [facility] Last Admin: 05/20/18 09:07 Dose: 20 mg Paroxetine HCl (Paxil) 20 mg PO DAILY [facility] Last Admin: 05/20/18 09:06 Dose: 20 mg Simethicone (Mylicon Chew Tab) 80 mg PO Q8 PRN PRN Reason: Flatulence Physical Exam - Respiratory Exam Respiratory Exam: Decreased Breath Sounds - Cardiovascular Exam Cardiovascular Exam: REGULAR RHYTHM, +S1, +S2 - Extremities Exam Additional comments: NO SIGNIFICANT LE EDEMA Results - Vital Signs Recent Vital Signs: Last Vital Signs Temp 98.1 F 05/20/18 08:16 Pulse 90 05/20/18 09:07 Resp 18 05/20/18 08:16 BP 179/69 H 05/20/18 09:07 Pulse Ox 93 L 05/20/18 08:54 - Labs Result Diagrams: 05/20/18 06:12 05/20/18 06:12 Labs: Laboratory Results - last 24 hr 05/19/18 05/20/18 05/20/18 20:42 05:27 06:12 WBC 7.5 RBC 3.31 L Hgb 10.8 L Hct 32.5 L MCV 98.5 D MCH 32.7 H MCHC 33.2 RDW 13.9 Plt Count 287 Sodium Potassium Chloride Carbon Dioxide Anion Gap BUN Creatinine Est GFR ( Amer) Est GFR (Non-Af Amer) POC Glucose (mg/dL) 159 H 122 H Random Glucose Calcium Urine Color Urine Clarity Urine pH Ur Specific [place] Urine Protein Urine Glucose (UA) Urine Ketones Urine Blood Urine Nitrate Urine Bilirubin Urine Urobilinogen Ur Leukocyte Esterase Urine RBC (Auto) Urine Microscopic WBC Ur Squamous Epith Cells Ur Transition Epith Cell 05/20/18 05/20/18 06:12 08:59 WBC RBC Hgb Hct MCV MCH MCHC RDW Plt Count Sodium 132 Potassium 4.3 Chloride 96 L Carbon Dioxide 29 Anion Gap 11 BUN 8 Creatinine 0.4 L Est GFR ( Amer) > 60 Est GFR (Non-Af Amer) > 60 POC Glucose (mg/dL) Random Glucose 126 H Calcium 8.2 L Urine Color Yellow Urine Clarity Slighty-cloudy Urine pH 7.0 Ur Specific [place] 1.009 Urine Protein Negative Urine Glucose (UA) Neg Urine Ketones Negative Urine Blood Negative Urine Nitrate Negative Urine Bilirubin Negative Urine Urobilinogen 0.2-1.0 Ur Leukocyte Esterase Small Urine RBC (Auto) < 1 Urine Microscopic WBC 3 Ur Squamous Epith Cells 9 H Ur Transition Epith Cell 2 Assessment & Plan - Assessment and Plan (Free Text) Assessment: CAD WITH RECENT AWMI COPD WITH PNEUMONIA HYPERTENSION TYPE 2 DM Plan: CONTINUE IV ANTIBIOTICS, ASPIRIN, LOVENOX, CARVEDILOL, FUROSEMIDE, ATORVASTATIN, AMLODIPINE AND ENALAPRIL
--- NOTE | 2018-05-20 18:06 | CP.PCM.HP ---
History of Present Illness - History of Present Illness History of Present Illness: 88 yo admitted for rehab s/p IA Present on Admission - Present on Admission Any Indicators Present on Admission: No Past Patient History - Past Medical History & Family History Past Medical History?: Yes - Past Social History Smoking Status: Former Smoker - CARDIAC Hx Congestive Heart Failure: Yes Hx Hypercholesterolemia: Yes Hx Hypertension: Yes - PULMONARY Hx Asthma: Yes Hx Bronchitis: Yes - NEUROLOGICAL Hx Neurological Disorder: No - HEENT Hx HEENT Problems: No - RENAL Hx Chronic Kidney Disease: No - ENDOCRINE/METABOLIC Hx Endocrine Disorders: No - HEMATOLOGICAL/ONCOLOGICAL Hx Blood Disorders: No - INTEGUMENTARY Hx Dermatological Problems: No - MUSCULOSKELETAL/RHEUMATOLOGICAL Hx Falls: Yes - GASTROINTESTINAL Hx Gastrointestinal Disorders: No Hx Pancreatitis: No - GENITOURINARY/GYNECOLOGICAL Hx Genitourinary Disorders: No - PSYCHIATRIC Hx Anxiety: Yes Hx Paranoia: Yes Hx Substance Use: No - SURGICAL HISTORY Hx Surgeries: No - ANESTHESIA Hx Anesthesia: Yes Hx Anesthesia Reactions: No Hx Malignant Hyperthermia: No Meds Allergies/Adverse Reactions: Allergies Allergy/AdvReac Type Severity Reaction Status Date / Time No Known Allergies Allergy Verified 05/19/18 14:34 Results - Vital Signs Recent Vital Signs: Last Vital Signs Temp 98.2 F 05/20/18 15:31 Pulse 71 05/20/18 15:31 Resp 20 05/20/18 15:31 BP 142/71 05/20/18 15:31 Pulse Ox 97 05/20/18 15:31 - Labs Result Diagrams: 05/20/18 06:12 05/20/18 06:12 Labs: Laboratory Results - last 24 hr 05/19/18 05/20/18 05/20/18 20:42 05:27 06:12 WBC 7.5 RBC 3.31 L Hgb 10.8 L Hct 32.5 L MCV 98.5 D MCH 32.7 H MCHC 33.2 RDW 13.9 Plt Count 287 Sodium Potassium Chloride Carbon Dioxide Anion Gap BUN Creatinine Est GFR ( Amer) Est GFR (Non-Af Amer) POC Glucose (mg/dL) 159 H 122 H Random Glucose Calcium Urine Color Urine Clarity Urine pH Ur Specific [place] Urine Protein Urine Glucose (UA) Urine Ketones Urine Blood Urine Nitrate Urine Bilirubin Urine Urobilinogen Ur Leukocyte Esterase Urine RBC (Auto) Urine Microscopic WBC Ur Squamous Epith Cells Ur Transition Epith Cell 05/20/18 05/20/18 05/20/18 06:12 08:59 10:50 WBC RBC Hgb Hct MCV MCH MCHC RDW Plt Count Sodium 132 Potassium 4.3 Chloride 96 L Carbon Dioxide 29 Anion Gap 11 BUN 8 Creatinine 0.4 L Est GFR ( Amer) > 60 Est GFR (Non-Af Amer) > 60 POC Glucose (mg/dL) 185 H Random Glucose 126 H Calcium 8.2 L Urine Color Yellow Urine Clarity Slighty-cloudy Urine pH 7.0 Ur Specific [place] 1.009 Urine Protein Negative Urine Glucose (UA) Neg Urine Ketones Negative Urine Blood Negative Urine Nitrate Negative Urine Bilirubin Negative Urine Urobilinogen 0.2-1.0 Ur Leukocyte Esterase Small Urine RBC (Auto) < 1 Urine Microscopic WBC 3 Ur Squamous Epith Cells 9 H Ur Transition Epith Cell 2 05/20/18 15:49 WBC RBC Hgb Hct MCV MCH MCHC RDW Plt Count Sodium Potassium Chloride Carbon Dioxide Anion Gap BUN Creatinine Est GFR ( Amer) Est GFR (Non-Af Amer) POC Glucose (mg/dL) 297 H Random Glucose Calcium Urine Color Urine Clarity Urine pH Ur Specific [place] Urine Protein Urine Glucose (UA) Urine Ketones Urine Blood Urine Nitrate Urine Bilirubin Urine Urobilinogen Ur Leukocyte Esterase Urine RBC (Auto) Urine Microscopic WBC Ur Squamous Epith Cells Ur Transition Epith Cell Assessment & Plan - Assessment and Plan (Free Text) Assessment: Acute ant wall IA + CE CT scan CHF O2 JAYESH B-[place]ia Nitrates ASA Lovenox Cardiology Echo Fall etiol?? 2 to above? 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
[2018-05-21] MEDS: Levalbuterol 0.63 MG/3 ML Inhal Soln UD INH PRN (00:30)
[2018-05-21] MEDS: AZITHROMYCIN 500 MG/NS 250 ML IVPB SCH (04:00)
[2018-05-21] MEDS: Nitroglycerin 2% Ointment Foilpak UD TOP SCH ×4 (04:01→22:16)
[2018-05-21] MEDS: Ipratropium 0.02% Inhal Soln (0.5 mg/2.5 ml) UD IH SCH ×4 (07:48→19:32)
[2018-05-21] MEDS: Albuterol 0.083% Inhal Sol (2.5 mg/3 mL) UD INH SCH ×4 (07:48→19:32)
[2018-05-21] MEDS: Enoxaparin 40 mg Syringe SC SCH (08:14)
[2018-05-21] MEDS: guaiFENesin 600 mg ER Tab PO SCH ×2 (08:15→22:13)
[2018-05-21] MEDS: Multivitamin With Minerals Tab PO SCH (08:16)
[2018-05-21] MEDS: Pantoprazole 20 mg EC Tab PO SCH ×2 (08:17→16:20)
--- NOTE | 2018-05-21 09:44 | CP.PCM.CON ---
History of Present Illness - History of Present Illness History of Present Illness: Consult note for Dr. You, 88 yo female seen at bedside for right ankle wound. Patient presented to the ED yesterday s/p fall, with possible pelvic injury. Unable to obtain history due to patients mental status. Patient is being seen by Dr. You for right ankle wound with grafts every week. No f/n/v/sob. Past Patient History - Past Medical History & Family History Past Medical History?: Yes - Past Social History Smoking Status: Former Smoker - CARDIAC Hx Congestive Heart Failure: Yes Hx Hypercholesterolemia: Yes Hx Hypertension: Yes - PULMONARY Hx Asthma: Yes Hx Bronchitis: Yes - NEUROLOGICAL Hx Neurological Disorder: No - HEENT Hx HEENT Problems: No - RENAL Hx Chronic Kidney Disease: No - ENDOCRINE/METABOLIC Hx Endocrine Disorders: No - HEMATOLOGICAL/ONCOLOGICAL Hx Blood Disorders: No - INTEGUMENTARY Hx Dermatological Problems: No - MUSCULOSKELETAL/RHEUMATOLOGICAL Hx Falls: Yes - GASTROINTESTINAL Hx Gastrointestinal Disorders: No Hx Pancreatitis: No - GENITOURINARY/GYNECOLOGICAL Hx Genitourinary Disorders: No - PSYCHIATRIC Hx Anxiety: Yes Hx Paranoia: Yes Hx Substance Use: No - SURGICAL HISTORY Hx Surgeries: No - ANESTHESIA Hx Anesthesia: Yes Hx Anesthesia Reactions: No Hx Malignant Hyperthermia: No Meds Allergies/Adverse Reactions: Allergies Allergy/AdvReac Type Severity Reaction Status Date / Time No Known Allergies Allergy Verified 05/19/18 14:34 - Medications Medications: Current Medications Acetaminophen (Tylenol 325mg Tab) 650 mg PO Q4 PRN PRN Reason: Pain, Mild (1-3) Albuterol Sulfate (Albuterol 0.083% Inhal [place] (2.5 Mg/3 Ml) Ud) 2.5 mg INH RQID [facility] Last Admin: 05/21/18 07:48 Dose: 2.5 mg Alendronate Sodium (Fosamax) 70 mg PO FR [facility] Amlodipine Besylate (Norvasc) 10 mg PO DAILY [facility] Last Admin: 05/21/18 08:16 Dose: 10 mg Aspirin (Aspirin Chewable) 81 mg PO DAILY [facility] Last Admin: 05/21/18 08:14 Dose: 81 mg Atorvastatin Calcium (Lipitor) 10 mg PO HS [facility] Last Admin: 05/20/18 21:18 Dose: 10 mg Carvedilol (Coreg) 3.125 mg PO Q12@0900,2100 [facility] Last Admin: 05/21/18 08:15 Dose: 3.125 mg Docusate Sodium (Colace) 100 mg PO BID [facility] Last Admin: 05/21/18 08:16 Dose: 100 mg Enalapril Maleate (Vasotec) 20 mg PO DAILY [facility] Last Admin: 05/21/18 08:17 Dose: 20 mg Enoxaparin Sodium (Lovenox) 40 mg SC DAILY [facility]; Protocol Last Admin: 05/21/18 08:14 Dose: 40 mg Ferrous Sulfate (Feosol) 325 mg PO TID [facility] Last Admin: 05/21/18 08:14 Dose: 325 mg Furosemide (Lasix) 20 mg PO DAILY [facility] Last Admin: 05/21/18 08:15 Dose: 20 mg Guaifenesin (Mucinex La) 600 mg PO Q12 [facility] Last Admin: 05/21/18 08:15 Dose: 600 mg Ceftriaxone Sodium 1 gm/ (Sodium Chloride) 100 mls @ 100 mls/hr IVPB DAILY@0600 [facility] Last Admin: 05/21/18 05:01 Dose: 100 mls/hr Azithromycin 500 mg/ Sodium (Chloride) 250 mls @ 250 mls/hr IVPB DAILY@0500 [facility] Last Admin: 05/21/18 04:00 Dose: 250 mls/hr Ipratropium [employer] (Atrovent) 0.5 mg IH RQID [facility] Last Admin: 05/21/18 07:48 Dose: 0.5 mg Levalbuterol HCl (Xopenex) 0.63 mg INH RQ8 PRN PRN Reason: Wheezing Last Admin: 05/21/18 00:30 Dose: 0.63 mg Metformin HCl (Glucophage) 500 mg PO BID [facility] Last Admin: 05/21/18 08:14 Dose: 500 mg Montelukast Sodium (Singulair) 10 mg PO HS [facility] Last Admin: 05/20/18 21:18 Dose: 10 mg Multivitamins/Minerals (Therapeutic-M Tab) 1 tab PO DAILY [facility] Last Admin: 05/21/18 08:16 Dose: 1 tab Nitroglycerin (Nitro-Bid 2% Oint) 1 ea TOP Q6 [facility] Last Admin: 05/21/18 09:31 Dose: 1 ea Pantoprazole Sodium (Protonix Ec Tab) 20 mg PO BID [facility] Last Admin: 05/21/18 08:17 Dose: 20 mg Paroxetine HCl (Paxil) 20 mg PO DAILY [facility] Last Admin: 05/21/18 08:17 Dose: 20 mg Simethicone (Mylicon Chew Tab) 80 mg PO Q8 PRN PRN Reason: Flatulence Physical Exam - Constitutional Appears: Well, Non-toxic, No Acute Distress - Head Exam Head Exam: ATRAUMATIC - Extremities Exam Additional comments: Right lower extremity exam: vascular: dp/pt pulses palpable, CFT <3 secs x 5, Tg warm to cool, periwound erythema noted, no erythema otherwise, no edema noted neuro: unable to obtain derm: right medial malleolus wound with fibrogranular base noted measuring approimately 1cm x 1cm, periwound erythema, minimal serous drainage noted on the dressing, no malodor, no clinical signs of infection ortho: minimal pain on palpation to the wound - Neurological Exam Neurological exam: Alert, Oriented x3 Results - Vital Signs Recent Vital Signs: Last Vital Signs Temp 97.7 F 05/21/18 08:01 Pulse 79 05/21/18 09:31 Resp 20 05/21/18 08:01 BP 152/85 H 05/21/18 09:31 Pulse Ox 97 05/21/18 08:01 - Labs Result Diagrams: 05/20/18 06:12 05/20/18 06:12 Labs: Laboratory Results - last 24 hr 05/20/18 05/20/18 05/21/18 10:50 15:49 05:51 POC Glucose (mg/dL) 185 H 297 H 129 H Assessment & Plan - Assessment and Plan (Free Text) Assessment: 88 yo female seen at bedside for a stable right ankle wound Plan: Patient seen and evaluated Chart, labs and vitals reviewed Santyl ordered and DSD to the ankle. Podiatry will continue to follow the patient while in house Patient will follow up with Dr. You upon discharge
--- NOTE | 2018-05-21 11:17 | CP.PCM.PN ---
Subjective - Date & Time of Evaluation Date of Evaluation: 05/21/18 Time of Evaluation: 11:15 - Subjective Subjective: Seated in the dining room. Appears comfortable. Relates having had some hooker laster wheezing which resolved with therapy. Presently both lungs are clear on auscultation. Objective - Vital Signs/Intake and Output Vital Signs (last 24 hours): Temp Pulse Resp BP Pulse Ox 97.7 F 79 20 160/85 H 98 05/21/18 10:00 05/21/18 10:33 05/21/18 10:00 05/21/18 10:33 05/21/18 10:33 - Medications Medications: Current Medications Acetaminophen (Tylenol 325mg Tab) 650 mg PO Q4 PRN PRN Reason: Pain, Mild (1-3) Albuterol Sulfate (Albuterol 0.083% Inhal Autumn (2.5 Mg/3 Ml) Ud) 2.5 mg INH RQID [facility] Last Admin: 05/21/18 07:48 Dose: 2.5 mg Alendronate Sodium (Fosamax) 70 mg PO [facility] Amlodipine Besylate (Norvasc) 10 mg PO DAILY [facility] Last Admin: 05/21/18 08:16 Dose: 10 mg Aspirin (Aspirin Chewable) 81 mg PO DAILY [facility] Last Admin: 05/21/18 08:14 Dose: 81 mg Atorvastatin Calcium (Lipitor) 10 mg PO HS [facility] Last Admin: 05/20/18 21:18 Dose: 10 mg Carvedilol (Coreg) 3.125 mg PO Q12@0900,2100 [facility] Last Admin: 05/21/18 08:15 Dose: 3.125 mg Collagenase (Santyl) 1 applic TOP DAILY [facility] Docusate Sodium (Colace) 100 mg PO BID [facility] Last Admin: 05/21/18 08:16 Dose: 100 mg Enalapril Maleate (Vasotec) 20 mg PO DAILY [facility] Last Admin: 05/21/18 08:17 Dose: 20 mg Enoxaparin Sodium (Lovenox) 40 mg SC DAILY [facility]; Protocol Last Admin: 05/21/18 08:14 Dose: 40 mg Ferrous Sulfate (Feosol) 325 mg PO TID [facility] Last Admin: 05/21/18 08:14 Dose: 325 mg Furosemide (Lasix) 20 mg PO DAILY [facility] Last Admin: 05/21/18 08:15 Dose: 20 mg Guaifenesin (Mucinex La) 600 mg PO Q12 [facility] Last Admin: 05/21/18 08:15 Dose: 600 mg Ceftriaxone Sodium 1 gm/ (Sodium Chloride) 100 mls @ 100 mls/hr IVPB DAILY@0600 [facility] Last Admin: 05/21/18 05:01 Dose: 100 mls/hr Azithromycin 500 mg/ Sodium (Chloride) 250 mls @ 250 mls/hr IVPB DAILY@0500 [facility] Last Admin: 05/21/18 04:00 Dose: 250 mls/hr Ipratropium [place] (Atrovent) 0.5 mg IH RQID [facility] Last Admin: 05/21/18 07:48 Dose: 0.5 mg Levalbuterol HCl (Xopenex) 0.63 mg INH RQ8 PRN PRN Reason: Wheezing Last Admin: 05/21/18 00:30 Dose: 0.63 mg Metformin HCl (Glucophage) 500 mg PO BID [facility] Last Admin: 05/21/18 08:14 Dose: 500 mg Montelukast Sodium (Singulair) 10 mg PO HS [facility] Last Admin: 05/20/18 21:18 Dose: 10 mg Multivitamins/Minerals (Therapeutic-M Tab) 1 tab PO DAILY [facility] Last Admin: 05/21/18 08:16 Dose: 1 tab Nitroglycerin (Nitro-Bid 2% Oint) 1 ea TOP Q6 [facility] Last Admin: 05/21/18 09:31 Dose: 1 ea Pantoprazole Sodium (Protonix Ec Tab) 20 mg PO BID [facility] Last Admin: 05/21/18 08:17 Dose: 20 mg Paroxetine HCl (Paxil) 20 mg PO DAILY [facility] Last Admin: 05/21/18 08:17 Dose: 20 mg Simethicone (Mylicon Chew Tab) 80 mg PO Q8 PRN PRN Reason: Flatulence - Labs Labs: 05/20/18 06:12 05/20/18 06:12 Assessment and Plan (1) Pneumonia Status: Acute (2) Bronchial asthma Status: Chronic (3) Pleural effusion Status: Acute
--- NOTE | 2018-05-21 15:55 | RAD ---
Date of service: 05/21/2018 PROCEDURE: Chest x-ray with decubitus views HISTORY: pleural effusion COMPARISON: May 20, 2018. TECHNIQUE: Standard protocol for this study/examination. FINDINGS: Trace left pleural effusion. No appreciable right pleural effusion. Confirmation of right lower lobe infiltrates IMPRESSION: Trace left pleural effusion. No significant right pleural effusion.
--- NOTE | 2018-05-21 20:24 | CP.PCM.PN ---
Subjective - Date & Time of Evaluation Date of Evaluation: 05/21/18 Time of Evaluation: 22:22 - Subjective Subjective: Above noted Objective - Vital Signs/Intake and Output Vital Signs (last 24 hours): Temp Pulse Resp BP Pulse Ox 97.9 F 70 20 130/51 L 97 05/21/18 19:49 05/21/18 19:49 05/21/18 19:49 05/21/18 19:49 05/21/18 19:49 - Medications Medications: Current Medications Acetaminophen (Tylenol 325mg Tab) 650 mg PO Q4 PRN PRN Reason: Pain, Mild (1-3) Albuterol Sulfate (Albuterol 0.083% Inhal Autumn (2.5 Mg/3 Ml) Ud) 2.5 mg INH RQID [facility] Last Admin: 05/21/18 19:32 Dose: 2.5 mg Alendronate Sodium (Fosamax) 70 mg PO Fr@0600 [facility] Amlodipine Besylate (Norvasc) 10 mg PO DAILY [facility] Last Admin: 05/21/18 08:16 Dose: 10 mg Aspirin (Aspirin Chewable) 81 mg PO DAILY [facility] Last Admin: 05/21/18 08:14 Dose: 81 mg Atorvastatin Calcium (Lipitor) 10 mg PO HS [facility] Last Admin: 05/20/18 21:18 Dose: 10 mg Carvedilol (Coreg) 3.125 mg PO Q12@0900,2100 [facility] Last Admin: 05/21/18 08:15 Dose: 3.125 mg Collagenase (Santyl) 1 applic TOP DAILY [facility] Docusate Sodium (Colace) 100 mg PO BID [facility] Last Admin: 05/21/18 16:20 Dose: 100 mg Enalapril Maleate (Vasotec) 20 mg PO DAILY [facility] Last Admin: 05/21/18 08:17 Dose: 20 mg Enoxaparin Sodium (Lovenox) 40 mg SC DAILY [facility]; Protocol Last Admin: 05/21/18 08:14 Dose: 40 mg Ferrous Sulfate (Feosol) 325 mg PO TID [facility] Last Admin: 05/21/18 16:20 Dose: 325 mg Furosemide (Lasix) 20 mg PO DAILY [facility] Last Admin: 05/21/18 08:15 Dose: 20 mg Guaifenesin (Mucinex La) 600 mg PO Q12 [facility] Last Admin: 05/21/18 08:15 Dose: 600 mg Ceftriaxone Sodium 1 gm/ (Sodium Chloride) 100 mls @ 100 mls/hr IVPB DAILY@0600 [facility] Last Admin: 05/21/18 05:01 Dose: 100 mls/hr Azithromycin 500 mg/ Sodium (Chloride) 250 mls @ 250 mls/hr IVPB DAILY@0500 [facility] Last Admin: 05/21/18 04:00 Dose: 250 mls/hr Ipratropium [place] (Atrovent) 0.5 mg IH RQID [facility] Last Admin: 05/21/18 19:32 Dose: 0.5 mg Levalbuterol HCl (Xopenex) 0.63 mg INH RQ8 PRN PRN Reason: Wheezing Last Admin: 05/21/18 00:30 Dose: 0.63 mg Metformin HCl (Glucophage) 500 mg PO BID [facility] Last Admin: 05/21/18 16:20 Dose: 500 mg Montelukast Sodium (Singulair) 10 mg PO HS [facility] Last Admin: 05/20/18 21:18 Dose: 10 mg Multivitamins/Minerals (Therapeutic-M Tab) 1 tab PO DAILY [facility] Last Admin: 05/21/18 08:16 Dose: 1 tab Nitroglycerin (Nitro-Bid 2% Oint) 1 ea TOP Q6 [facility] Last Admin: 05/21/18 16:20 Dose: 1 ea Pantoprazole Sodium (Protonix Ec Tab) 20 mg PO BID [facility] Last Admin: 05/21/18 16:20 Dose: 20 mg Paroxetine HCl (Paxil) 20 mg PO DAILY [facility] Last Admin: 05/21/18 08:17 Dose: 20 mg Simethicone (Mylicon Chew Tab) 80 mg PO Q8 PRN PRN Reason: Flatulence - Labs Labs: 05/20/18 06:12 05/20/18 06:12 - Respiratory Exam Respiratory Exam: NORMAL BREATHING PATTERN - Cardiovascular Exam Cardiovascular Exam: REGULAR RHYTHM - GI/Abdominal Exam GI & Abdominal Exam: Normal Bowel Sounds Assessment and Plan - Assessment and Plan (Free Text) Assessment: Acute ant wall CT + CE CT scan CHF O2 JAYESH B-annia Nitrates ASA Lovenox Cardiology Echo Fall etiol?? 2 to above? Telemetry Neuro cardiology COPD R pleural effusion ? 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
[2018-05-22] MEDS: ALENDRONATE 70 MG TAB PO SCH (07:24)
[2018-05-22] MEDS: AZITHROMYCIN 500 MG/NS 250 ML IVPB SCH (07:24)
[2018-05-22] MEDS: Albuterol 0.083% Inhal Sol (2.5 mg/3 mL) UD INH SCH ×4 (07:27→19:25)
[2018-05-22] MEDS: Ipratropium 0.02% Inhal Soln (0.5 mg/2.5 ml) UD IH SCH ×4 (07:28→19:25)
[2018-05-22] MEDS: Enoxaparin 40 mg Syringe SC SCH (08:59)
[2018-05-22] MEDS: guaiFENesin 600 mg ER Tab PO SCH ×2 (09:00→21:26)
[2018-05-22] MEDS: Multivitamin With Minerals Tab PO SCH (09:00)
[2018-05-22] MEDS: Pantoprazole 20 mg EC Tab PO SCH ×2 (09:00→16:32)
[2018-05-22] MEDS: Santyl Collagenase OINTMENT TOP SCH (09:01)
--- NOTE | 2018-05-22 10:23 | CP.PCM.PN ---
Subjective - Date & Time of Evaluation Date of Evaluation: 05/22/18 Time of Evaluation: 10:21 - Subjective Subjective: Progress note for Dr. You, 88 yo female seen at bedside for right ankle wound. Patient seen at bedside s/p fall, with possible pelvic injury. Denies acute overnight events. Denies pain to the lower extremity. states her left arm has been very painful. AAOx3, and in NAD.. No f/n/v/sob. Objective - Vital Signs/Intake and Output Vital Signs (last 24 hours): Temp Pulse Resp BP Pulse Ox 97.9 F 83 20 152/82 H 96 05/22/18 08:22 05/22/18 09:02 05/22/18 08:22 05/22/18 09:03 05/22/18 08:22 - Medications Medications: Current Medications Acetaminophen (Tylenol 325mg Tab) 650 mg PO Q4 PRN PRN Reason: Pain, Mild (1-3) Albuterol Sulfate (Albuterol 0.083% Inhal Autumn (2.5 Mg/3 Ml) Ud) 2.5 mg INH RQID [facility] Last Admin: 05/22/18 07:27 Dose: 2.5 mg Alendronate Sodium (Fosamax) 70 mg PO Fr@0600 [facility] Last Admin: 05/22/18 07:24 Dose: 70 mg Amlodipine Besylate (Norvasc) 10 mg PO DAILY [facility] Last Admin: 05/22/18 09:02 Dose: 10 mg Aspirin (Aspirin Chewable) 81 mg PO DAILY [facility] Last Admin: 05/22/18 09:00 Dose: 81 mg Atorvastatin Calcium (Lipitor) 10 mg PO HS [facility] Last Admin: 05/21/18 22:12 Dose: 10 mg Carvedilol (Coreg) 3.125 mg PO Q12@0900,2100 [facility] Last Admin: 05/22/18 09:01 Dose: 3.125 mg Collagenase (Santyl) 1 applic TOP DAILY [facility] Last Admin: 05/22/18 09:01 Dose: 1 applic Docusate Sodium (Colace) 100 mg PO BID [facility] Last Admin: 05/22/18 09:00 Dose: 100 mg Enalapril Maleate (Vasotec) 20 mg PO DAILY [facility] Last Admin: 05/22/18 09:00 Dose: 20 mg Enoxaparin Sodium (Lovenox) 40 mg SC DAILY [facility]; Protocol Last Admin: 05/22/18 08:59 Dose: 40 mg Ferrous Sulfate (Feosol) 325 mg PO TID [facility] Last Admin: 05/22/18 09:04 Dose: 325 mg Furosemide (Lasix) 20 mg PO DAILY [facility] Last Admin: 05/22/18 09:03 Dose: 20 mg Guaifenesin (Mucinex La) 600 mg PO Q12 [facility] Last Admin: 05/22/18 09:00 Dose: 600 mg Azithromycin 500 mg/ Sodium (Chloride) 250 mls @ 250 mls/hr IVPB DAILY@0500 [facility] Last Admin: 05/22/18 07:24 Dose: 250 mls/hr Ceftriaxone Sodium 1 gm/ (Sodium Chloride) 100 mls @ 100 mls/hr IVPB DAILY@1700 [facility]; Protocol Ipratropium [place] (Atrovent) 0.5 mg IH RQID [facility] Last Admin: 05/22/18 07:28 Dose: 0.5 mg Levalbuterol HCl (Xopenex) 0.63 mg INH RQ8 PRN PRN Reason: Wheezing Last Admin: 05/21/18 00:30 Dose: 0.63 mg Metformin HCl (Glucophage) 500 mg PO BID [facility] Last Admin: 05/22/18 08:59 Dose: 500 mg Montelukast Sodium (Singulair) 10 mg PO HS [facility] Last Admin: 05/21/18 22:18 Dose: 10 mg Multivitamins/Minerals (Therapeutic-M Tab) 1 tab PO DAILY [facility] Last Admin: 05/22/18 09:00 Dose: 1 tab Nystatin (Nystop Topical Powder) 1 applic TOP TID [facility] Last Admin: 05/22/18 08:59 Dose: 1 unit Pantoprazole Sodium (Protonix Ec Tab) 20 mg PO BID [facility] Last Admin: 05/22/18 09:00 Dose: 20 mg Paroxetine HCl (Paxil) 20 mg PO DAILY [facility] Last Admin: 05/22/18 09:01 Dose: 20 mg Simethicone (Mylicon Chew Tab) 80 mg PO Q8 PRN PRN Reason: Flatulence - Labs Labs: 05/20/18 06:12 05/20/18 06:12 - Constitutional Appears: Well, Non-toxic - Head Exam Head Exam: ATRAUMATIC - Extremities Exam Additional comments: Right lower extremity exam: vascular: dp/pt pulses palpable, CFT <3 secs x 5, Tg warm to cool, periwound erythema noted, no erythema otherwise, no edema noted neuro: unable to obtain derm: right medial malleolus wound with fibrogranular base noted measuring approimately 1cm x 1cm, periwound erythema, minimal serous drainage noted on the dressing, no malodor, no clinical signs of infection ortho: minimal pain on palpation to the wound - Neurological Exam Neurological Exam: Alert Assessment and Plan - Assessment and Plan (Free Text) Assessment: 88 yo female seen at bedside for a stable right ankle wound Plan: Patient seen and evaluated Chart, labs and vitals reviewed Viviane and MANUELA with coban applied to the ankle Podiatry will continue to follow the patient while in house Patient will follow up with Dr. You upon discharge
--- NOTE | 2018-05-22 11:09 | CP.PCM.PN ---
Subjective - Date & Time of Evaluation Date of Evaluation: 05/22/18 Time of Evaluation: 08:45 - Subjective Subjective: NO CHEST PAIN BREATHING BETTER Objective - Vital Signs/Intake and Output Vital Signs (last 24 hours): Temp Pulse Resp BP Pulse Ox 97.7 F 79 20 152/82 H 96 05/22/18 10:00 05/22/18 10:00 05/22/18 10:00 05/22/18 10:00 05/22/18 10:00 - Medications Medications: Current Medications Acetaminophen (Tylenol 325mg Tab) 650 mg PO Q4 PRN PRN Reason: Pain, Mild (1-3) Albuterol Sulfate (Albuterol 0.083% Inhal Autumn (2.5 Mg/3 Ml) Ud) 2.5 mg INH RQID [facility] Last Admin: 05/22/18 10:59 Dose: 2.5 mg Alendronate Sodium (Fosamax) 70 mg PO Fr@0600 [facility] Last Admin: 05/22/18 07:24 Dose: 70 mg Amlodipine Besylate (Norvasc) 10 mg PO DAILY [facility] Last Admin: 05/22/18 09:02 Dose: 10 mg Aspirin (Aspirin Chewable) 81 mg PO DAILY [facility] Last Admin: 05/22/18 09:00 Dose: 81 mg Atorvastatin Calcium (Lipitor) 10 mg PO HS [facility] Last Admin: 05/21/18 22:12 Dose: 10 mg Carvedilol (Coreg) 3.125 mg PO Q12@0900,2100 [facility] Last Admin: 05/22/18 09:01 Dose: 3.125 mg Collagenase (Santyl) 1 applic TOP DAILY [facility] Last Admin: 05/22/18 09:01 Dose: 1 applic Docusate Sodium (Colace) 100 mg PO BID [facility] Last Admin: 05/22/18 09:00 Dose: 100 mg Enalapril Maleate (Vasotec) 20 mg PO DAILY [facility] Last Admin: 05/22/18 09:00 Dose: 20 mg Enoxaparin Sodium (Lovenox) 40 mg SC DAILY [facility]; Protocol Last Admin: 05/22/18 08:59 Dose: 40 mg Ferrous Sulfate (Feosol) 325 mg PO TID [facility] Last Admin: 05/22/18 09:04 Dose: 325 mg Furosemide (Lasix) 20 mg PO DAILY [facility] Last Admin: 05/22/18 09:03 Dose: 20 mg Guaifenesin (Mucinex La) 600 mg PO Q12 [facility] Last Admin: 05/22/18 09:00 Dose: 600 mg Azithromycin 500 mg/ Sodium (Chloride) 250 mls @ 250 mls/hr IVPB DAILY@0500 [facility] Last Admin: 05/22/18 07:24 Dose: 250 mls/hr Ceftriaxone Sodium 1 gm/ (Sodium Chloride) 100 mls @ 100 mls/hr IVPB DAILY@1700 [facility]; Protocol Ipratropium [place] (Atrovent) 0.5 mg IH RQID [facility] Last Admin: 05/22/18 11:02 Dose: 0.5 mg Levalbuterol HCl (Xopenex) 0.63 mg INH RQ8 PRN PRN Reason: Wheezing Last Admin: 05/21/18 00:30 Dose: 0.63 mg Metformin HCl (Glucophage) 500 mg PO BID [facility] Last Admin: 05/22/18 08:59 Dose: 500 mg Montelukast Sodium (Singulair) 10 mg PO HS [facility] Last Admin: 05/21/18 22:18 Dose: 10 mg Multivitamins/Minerals (Therapeutic-M Tab) 1 tab PO DAILY [facility] Last Admin: 05/22/18 09:00 Dose: 1 tab Nystatin (Nystop Topical Powder) 1 applic TOP TID [facility] Last Admin: 05/22/18 08:59 Dose: 1 unit Pantoprazole Sodium (Protonix Ec Tab) 20 mg PO BID [facility] Last Admin: 05/22/18 09:00 Dose: 20 mg Paroxetine HCl (Paxil) 20 mg PO DAILY [facility] Last Admin: 05/22/18 09:01 Dose: 20 mg Simethicone (Mylicon Chew Tab) 80 mg PO Q8 PRN PRN Reason: Flatulence - Labs Labs: 05/20/18 06:12 05/20/18 06:12 - Respiratory Exam Respiratory Exam: Decreased Breath Sounds - Cardiovascular Exam Cardiovascular Exam: REGULAR RHYTHM, +S1, +S2 - Extremities Exam Additional comments: NO LE EDEMA Assessment and Plan - Assessment and Plan (Free Text) Assessment: RECENT AWMI CHF COPD WITH PNEUMONIA HYPERTENSION Plan: CONTINUE O2, ASPIRIN, LOVENOX, ENALAPRIL, CARVEDILOL, AMLODIPINE, ATORVASTATIN, FUROSEMIDE, ANTIBIOTICS AND COPD MEDICATIONS
--- NOTE | 2018-05-22 13:12 | CP.PCM.PN ---
Subjective - Date & Time of Evaluation Date of Evaluation: 05/22/18 Time of Evaluation: 13:10 - Subjective Subjective: Chest x-rays including lateral decubitus views show resolved pneumonia and no further pleural effusion. Clinically the patient has improved nicely with the present regimen. Continue antibiotic therapy to complete 10 days of treatment. May switch to oral meds at this time. Objective - Vital Signs/Intake and Output Vital Signs (last 24 hours): Temp Pulse Resp BP Pulse Ox 97.7 F 79 20 152/82 H 96 05/22/18 10:00 05/22/18 10:00 05/22/18 10:00 05/22/18 10:00 05/22/18 10:00 - Medications Medications: Current Medications Acetaminophen (Tylenol 325mg Tab) 650 mg PO Q4 PRN PRN Reason: Pain, Mild (1-3) Albuterol Sulfate (Albuterol 0.083% Inhal Autumn (2.5 Mg/3 Ml) Ud) 2.5 mg INH RQID [facility] Last Admin: 05/22/18 10:59 Dose: 2.5 mg Alendronate Sodium (Fosamax) 70 mg PO Fr@0600 [facility] Last Admin: 05/22/18 07:24 Dose: 70 mg Amlodipine Besylate (Norvasc) 10 mg PO DAILY [facility] Last Admin: 05/22/18 09:02 Dose: 10 mg Aspirin (Aspirin Chewable) 81 mg PO DAILY [facility] Last Admin: 05/22/18 09:00 Dose: 81 mg Atorvastatin Calcium (Lipitor) 10 mg PO HS [facility] Last Admin: 05/21/18 22:12 Dose: 10 mg Carvedilol (Coreg) 3.125 mg PO Q12@0900,2100 [facility] Last Admin: 05/22/18 09:01 Dose: 3.125 mg Collagenase (Santyl) 1 applic TOP DAILY [facility] Last Admin: 05/22/18 09:01 Dose: 1 applic Docusate Sodium (Colace) 100 mg PO BID [facility] Last Admin: 05/22/18 09:00 Dose: 100 mg Enalapril Maleate (Vasotec) 20 mg PO DAILY [facility] Last Admin: 05/22/18 09:00 Dose: 20 mg Enoxaparin Sodium (Lovenox) 40 mg SC DAILY [facility]; Protocol Last Admin: 05/22/18 08:59 Dose: 40 mg Ferrous Sulfate (Feosol) 325 mg PO TID [facility] Last Admin: 05/22/18 09:04 Dose: 325 mg Furosemide (Lasix) 20 mg PO DAILY [facility] Last Admin: 05/22/18 09:03 Dose: 20 mg Guaifenesin (Mucinex La) 600 mg PO Q12 [facility] Last Admin: 05/22/18 09:00 Dose: 600 mg Azithromycin 500 mg/ Sodium (Chloride) 250 mls @ 250 mls/hr IVPB DAILY@0500 [facility] Last Admin: 05/22/18 07:24 Dose: 250 mls/hr Ceftriaxone Sodium 1 gm/ (Sodium Chloride) 100 mls @ 100 mls/hr IVPB DAILY@1700 [facility]; Protocol Ipratropium [place] (Atrovent) 0.5 mg IH RQID [facility] Last Admin: 05/22/18 11:02 Dose: 0.5 mg Levalbuterol HCl (Xopenex) 0.63 mg INH RQ8 PRN PRN Reason: Wheezing Last Admin: 05/21/18 00:30 Dose: 0.63 mg Metformin HCl (Glucophage) 500 mg PO BID [facility] Last Admin: 05/22/18 08:59 Dose: 500 mg Montelukast Sodium (Singulair) 10 mg PO HS [facility] Last Admin: 05/21/18 22:18 Dose: 10 mg Multivitamins/Minerals (Therapeutic-M Tab) 1 tab PO DAILY [facility] Last Admin: 05/22/18 09:00 Dose: 1 tab Nystatin (Nystop Topical Powder) 1 applic TOP TID [facility] Last Admin: 05/22/18 08:59 Dose: 1 unit Pantoprazole Sodium (Protonix Ec Tab) 20 mg PO BID [facility] Last Admin: 05/22/18 09:00 Dose: 20 mg Paroxetine HCl (Paxil) 20 mg PO DAILY [facility] Last Admin: 05/22/18 09:01 Dose: 20 mg Simethicone (Mylicon Chew Tab) 80 mg PO Q8 PRN PRN Reason: Flatulence - Labs Labs: 05/20/18 06:12 05/20/18 06:12 Assessment and Plan (1) Pneumonia Status: Acute (2) Bronchial asthma Status: Chronic (3) Pleural effusion Status: Acute
--- NOTE | 2018-05-22 14:44 | CP.PCM.PN ---
Subjective - Date & Time of Evaluation Date of Evaluation: 05/22/18 Time of Evaluation: 14:44 - Subjective Subjective: Patient conscious and alert not in acute distress Vital sign is stable No chest pain Objective - Vital Signs/Intake and Output Vital Signs (last 24 hours): Temp Pulse Resp BP Pulse Ox 97.7 F 72 20 152/82 H 99 05/22/18 10:00 05/22/18 13:43 05/22/18 10:00 05/22/18 10:00 05/22/18 13:43 - Medications Medications: Current Medications Acetaminophen (Tylenol 325mg Tab) 650 mg PO Q4 PRN PRN Reason: Pain, Mild (1-3) Albuterol Sulfate (Albuterol 0.083% Inhal Autumn (2.5 Mg/3 Ml) Ud) 2.5 mg INH RQID [facility] Last Admin: 05/22/18 10:59 Dose: 2.5 mg Alendronate Sodium (Fosamax) 70 mg PO Fr@0600 [facility] Last Admin: 05/22/18 07:24 Dose: 70 mg Amlodipine Besylate (Norvasc) 10 mg PO DAILY [facility] Last Admin: 05/22/18 09:02 Dose: 10 mg Aspirin (Aspirin Chewable) 81 mg PO DAILY [facility] Last Admin: 05/22/18 09:00 Dose: 81 mg Atorvastatin Calcium (Lipitor) 10 mg PO HS [facility] Last Admin: 05/21/18 22:12 Dose: 10 mg Azithromycin (Zithromax) 250 mg PO DAILY [facility]; Protocol Stop: 05/26/18 09:01 Carvedilol (Coreg) 3.125 mg PO Q12@0900,2100 [facility] Last Admin: 05/22/18 09:01 Dose: 3.125 mg Cefdinir (Omnicef) 300 mg PO BID [facility] Collagenase (Santyl) 1 applic TOP DAILY [facility] Last Admin: 05/22/18 09:01 Dose: 1 applic Docusate Sodium (Colace) 100 mg PO BID [facility] Last Admin: 05/22/18 09:00 Dose: 100 mg Enalapril Maleate (Vasotec) 20 mg PO DAILY [facility] Last Admin: 05/22/18 09:00 Dose: 20 mg Enoxaparin Sodium (Lovenox) 40 mg SC DAILY [facility]; Protocol Last Admin: 05/22/18 08:59 Dose: 40 mg Ferrous Sulfate (Feosol) 325 mg PO TID [facility] Last Admin: 05/22/18 13:27 Dose: 325 mg Furosemide (Lasix) 20 mg PO DAILY [facility] Last Admin: 05/22/18 09:03 Dose: 20 mg Guaifenesin (Mucinex La) 600 mg PO Q12 [facility] Last Admin: 05/22/18 09:00 Dose: 600 mg Ipratropium [place] (Atrovent) 0.5 mg IH RQID [facility] Last Admin: 05/22/18 11:02 Dose: 0.5 mg Levalbuterol HCl (Xopenex) 0.63 mg INH RQ8 PRN PRN Reason: Wheezing Last Admin: 05/21/18 00:30 Dose: 0.63 mg Metformin HCl (Glucophage) 500 mg PO BID [facility] Last Admin: 05/22/18 08:59 Dose: 500 mg Montelukast Sodium (Singulair) 10 mg PO HS [facility] Last Admin: 05/21/18 22:18 Dose: 10 mg Multivitamins/Minerals (Therapeutic-M Tab) 1 tab PO DAILY [facility] Last Admin: 05/22/18 09:00 Dose: 1 tab Nystatin (Nystop Topical Powder) 1 applic TOP TID [facility] Last Admin: 05/22/18 13:27 Dose: 1 unit Pantoprazole Sodium (Protonix Ec Tab) 20 mg PO BID [facility] Last Admin: 05/22/18 09:00 Dose: 20 mg Paroxetine HCl (Paxil) 20 mg PO DAILY [facility] Last Admin: 05/22/18 09:01 Dose: 20 mg Simethicone (Mylicon Chew Tab) 80 mg PO Q8 PRN PRN Reason: Flatulence - Labs Labs: 05/20/18 06:12 05/20/18 06:12 - Constitutional Appears: No Acute Distress - Eye Exam Eye Exam: Conjunctival injection - ENT Exam ENT Exam: Mucous Membranes Moist - Neck Exam Neck Exam: absent: Lymphadenopathy - Respiratory Exam Respiratory Exam: NORMAL BREATHING PATTERN - Cardiovascular Exam Cardiovascular Exam: absent: Gallop, Rubs - GI/Abdominal Exam GI & Abdominal Exam: Soft - Extremities Exam Extremities Exam: absent: Calf Tenderness - Back Exam Back Exam: absent: CVA tenderness (L), CVA tenderness (R) - Neurological Exam Neurological Exam: Alert - Psychiatric Exam Psychiatric exam: Normal Affect - Skin Skin Exam: absent: Cyanosis Assessment and Plan (1) Hyponatremia Assessment & Plan: hyponatremia Hypochloremia Pneumonia copd Fall, DM, HTN, hyperlipidemia, anemia Recommendation Because of the presence hyponatremia and hypochloremia I suspect that may be from Lasix therefore my recommendation to hold Lasix for about 2 days and repeat BMP will see what happens. Status: Acute
[2018-05-22] MEDS: Cefdinir 300 MG CAP PO SCH (16:32)
[2018-05-22] MEDS ORDERED: ALENDRONATE 70 MG TAB PO SCH (17:37)
--- NOTE | 2018-05-22 17:53 | CP.PCM.PN ---
Subjective - Date & Time of Evaluation Date of Evaluation: 05/22/18 Time of Evaluation: 22:22 - Subjective Subjective: Doing well Objective - Vital Signs/Intake and Output Vital Signs (last 24 hours): Temp Pulse Resp BP Pulse Ox 97.5 F L 80 14 158/79 H 100 05/22/18 16:30 05/22/18 16:30 05/22/18 16:30 05/22/18 16:30 05/22/18 16:30 - Medications Medications: Current Medications Acetaminophen (Tylenol 325mg Tab) 650 mg PO Q4 PRN PRN Reason: Pain, Mild (1-3) Albuterol Sulfate (Albuterol 0.083% Inhal Autumn (2.5 Mg/3 Ml) Ud) 2.5 mg INH RQID [facility] Last Admin: 05/22/18 15:42 Dose: 2.5 mg Alendronate Sodium (Fosamax) 70 mg PO Fr@0600 [facility] Last Admin: 05/22/18 07:24 Dose: 70 mg Amlodipine Besylate (Norvasc) 10 mg PO DAILY [facility] Last Admin: 05/22/18 09:02 Dose: 10 mg Aspirin (Aspirin Chewable) 81 mg PO DAILY [facility] Last Admin: 05/22/18 09:00 Dose: 81 mg Atorvastatin Calcium (Lipitor) 10 mg PO HS [facility] Last Admin: 05/21/18 22:12 Dose: 10 mg Azithromycin (Zithromax) 250 mg PO DAILY [facility]; Protocol Stop: 05/26/18 09:01 Carvedilol (Coreg) 3.125 mg PO Q12@0900,2100 [facility] Last Admin: 05/22/18 09:01 Dose: 3.125 mg Cefdinir (Omnicef) 300 mg PO BID [facility] Last Admin: 05/22/18 16:32 Dose: 300 mg Collagenase (Santyl) 1 applic TOP DAILY [facility] Last Admin: 05/22/18 09:01 Dose: 1 applic Docusate Sodium (Colace) 100 mg PO BID [facility] Last Admin: 05/22/18 16:31 Dose: 100 mg Enalapril Maleate (Vasotec) 20 mg PO DAILY [facility] Last Admin: 05/22/18 09:00 Dose: 20 mg Enoxaparin Sodium (Lovenox) 40 mg SC DAILY [facility]; Protocol Last Admin: 05/22/18 08:59 Dose: 40 mg Ferrous Sulfate (Feosol) 325 mg PO TID [facility] Last Admin: 05/22/18 16:33 Dose: 325 mg Furosemide (Lasix) 20 mg PO DAILY [facility] Last Admin: 05/22/18 09:03 Dose: 20 mg Guaifenesin (Mucinex La) 600 mg PO Q12 [facility] Last Admin: 05/22/18 09:00 Dose: 600 mg Ipratropium [place] (Atrovent) 0.5 mg IH RQID [facility] Last Admin: 05/22/18 15:42 Dose: 0.5 mg Levalbuterol HCl (Xopenex) 0.63 mg INH RQ8 PRN PRN Reason: Wheezing Last Admin: 05/21/18 00:30 Dose: 0.63 mg Metformin HCl (Glucophage) 500 mg PO BID [facility] Last Admin: 05/22/18 16:32 Dose: 500 mg Montelukast Sodium (Singulair) 10 mg PO HS [facility] Last Admin: 05/21/18 22:18 Dose: 10 mg Multivitamins/Minerals (Therapeutic-M Tab) 1 tab PO DAILY [facility] Last Admin: 05/22/18 09:00 Dose: 1 tab Nystatin (Nystop Topical Powder) 1 applic TOP TID [facility] Last Admin: 05/22/18 16:31 Dose: 1 unit Pantoprazole Sodium (Protonix Ec Tab) 20 mg PO BID [facility] Last Admin: 05/22/18 16:32 Dose: 20 mg Paroxetine HCl (Paxil) 20 mg PO DAILY [facility] Last Admin: 05/22/18 09:01 Dose: 20 mg Simethicone (Mylicon Chew Tab) 80 mg PO Q8 PRN PRN Reason: Flatulence - Labs Labs: 05/20/18 06:12 05/20/18 06:12 - Respiratory Exam Respiratory Exam: NORMAL BREATHING PATTERN - Cardiovascular Exam Cardiovascular Exam: REGULAR RHYTHM - GI/Abdominal Exam GI & Abdominal Exam: Normal Bowel Sounds Assessment and Plan - Assessment and Plan (Free Text) Assessment: Deconditioning Rehab Acute ant wall [place] + CE CT scan CHF O2 JAYESH B-annia Nitrates ASA Lovenox Cardiology Echo Fall etiol?? 2 to above? Telemetry Neuro cardiology COPD R pleural effusion ? 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
[2018-05-22] MEDS ORDERED: Mycolog II OINT TOP SCH (23:59)
[2018-05-23] MEDS: Albuterol 0.083% Inhal Sol (2.5 mg/3 mL) UD INH SCH ×4 (07:08→19:04)
[2018-05-23] MEDS: Ipratropium 0.02% Inhal Soln (0.5 mg/2.5 ml) UD IH SCH ×4 (07:08→19:04)
[2018-05-23] MEDS: Enoxaparin 40 mg Syringe SC SCH (08:05)
[2018-05-23] MEDS: Cefdinir 300 MG CAP PO SCH ×2 (08:05→16:09)
[2018-05-23] MEDS: Multivitamin With Minerals Tab PO SCH (08:05)
[2018-05-23] MEDS: guaiFENesin 600 mg ER Tab PO SCH ×2 (08:05→21:12)
[2018-05-23] MEDS: Pantoprazole 20 mg EC Tab PO SCH ×2 (08:06→16:09)
[2018-05-23] MEDS: Santyl Collagenase OINTMENT TOP SCH (08:07)
--- NOTE | 2018-05-23 12:40 | CP.PCM.PN ---
Subjective - Date & Time of Evaluation Date of Evaluation: 05/23/18 Time of Evaluation: 12:38 - Subjective Subjective: Podiatry progress note for Dr. You 88 yo female seen at bedside for right ankle wound. Resting comfortably. Denies acute overnight events. Denies pain to the lower extremity. Denies N/V/F/C/SOB/CP today. Objective - Vital Signs/Intake and Output Vital Signs (last 24 hours): Temp Pulse Resp BP Pulse Ox 97.2 F L 77 20 153/74 H 99 05/23/18 08:31 05/23/18 08:31 05/23/18 08:31 05/23/18 08:31 05/23/18 08:31 - Medications Medications: Current Medications Acetaminophen (Tylenol 325mg Tab) 650 mg PO Q4 PRN PRN Reason: Pain, Mild (1-3) Albuterol Sulfate (Albuterol 0.083% Inhal Autumn (2.5 Mg/3 Ml) Ud) 2.5 mg INH RQID [facility] Last Admin: 05/23/18 10:59 Dose: 2.5 mg Alendronate Sodium (Fosamax) 70 mg PO Fr@0600 [facility] Last Admin: 05/22/18 07:24 Dose: 70 mg Amlodipine Besylate (Norvasc) 10 mg PO DAILY [facility] Last Admin: 05/23/18 08:06 Dose: 10 mg Aspirin (Aspirin Chewable) 81 mg PO DAILY [facility] Last Admin: 05/23/18 08:06 Dose: 81 mg Atorvastatin Calcium (Lipitor) 10 mg PO HS [facility] Last Admin: 05/22/18 21:26 Dose: 10 mg Azithromycin (Zithromax) 250 mg PO DAILY [facility]; Protocol Stop: 05/26/18 09:01 Last Admin: 05/23/18 08:06 Dose: 250 mg Carvedilol (Coreg) 3.125 mg PO Q12@0900,2100 [facility] Last Admin: 05/23/18 08:05 Dose: 3.125 mg Cefdinir (Omnicef) 300 mg PO BID [facility] Last Admin: 05/23/18 08:05 Dose: 300 mg Collagenase (Santyl) 1 applic TOP DAILY [facility] Last Admin: 05/23/18 08:07 Dose: 1 applic Docusate Sodium (Colace) 100 mg PO BID [facility] Last Admin: 05/23/18 08:06 Dose: 100 mg Enalapril Maleate (Vasotec) 20 mg PO DAILY [facility] Last Admin: 05/23/18 08:06 Dose: 20 mg Ferrous Sulfate (Feosol) 325 mg PO TID [facility] Last Admin: 05/23/18 08:08 Dose: 325 mg Furosemide (Lasix) 20 mg PO DAILY [facility] Last Admin: 05/22/18 09:03 Dose: 20 mg Guaifenesin (Mucinex La) 600 mg PO Q12 [facility] Last Admin: 05/23/18 08:05 Dose: 600 mg Ipratropium [place] (Atrovent) 0.5 mg IH RQID [facility] Last Admin: 05/23/18 10:59 Dose: 0.5 mg Levalbuterol HCl (Xopenex) 0.63 mg INH RQ8 PRN PRN Reason: Wheezing Last Admin: 05/21/18 00:30 Dose: 0.63 mg Metformin HCl (Glucophage) 500 mg PO BID [facility] Last Admin: 05/23/18 08:05 Dose: 500 mg Montelukast Sodium (Singulair) 10 mg PO HS [facility] Last Admin: 05/22/18 21:26 Dose: 10 mg Multivitamins/Minerals (Therapeutic-M Tab) 1 tab PO DAILY [facility] Last Admin: 05/23/18 08:05 Dose: 1 tab Nystatin (Nystop Topical Powder) 1 applic TOP TID [facility] Last Admin: 05/23/18 08:05 Dose: 1 unit Pantoprazole Sodium (Protonix Ec Tab) 20 mg PO BID [facility] Last Admin: 05/23/18 08:06 Dose: 20 mg Paroxetine HCl (Paxil) 20 mg PO DAILY [facility] Last Admin: 05/23/18 08:06 Dose: 20 mg Simethicone (Mylicon Chew Tab) 80 mg PO Q8 PRN PRN Reason: Flatulence - Labs Labs: 05/20/18 06:12 05/20/18 06:12 - Constitutional Appears: Well, Non-toxic, No Acute Distress - Head Exam Head Exam: ATRAUMATIC, NORMOCEPHALIC - Extremities Exam Additional comments: Right lower extremity exam: vascular: dp/pt pulses palpable, CFT <3 secs x 5, Tg warm to cool, periwound erythema noted, no erythema otherwise, no edema noted neuro: unable to obtain derm: right medial malleolus wound with fibrogranular base noted measuring approimately 1cm x 1cm, periwound erythema, minimal serous drainage noted on the dressing, no malodor, no clinical signs of infection ortho: minimal pain on palpation to the wound - Neurological Exam Neurological Exam: Alert, Awake - Psychiatric Exam Psychiatric exam: Normal Affect, Normal Mood Assessment and Plan - Assessment and Plan (Free Text) Assessment: 88 yo female with stable right ankle wound Plan: Plan: Patient seen and evaluated Chart, labs and vitals reviewed Viviane and MANUELA with brenna applied to the ankle Podiatry will continue to follow the patient while in house Patient will follow up with Dr. You upon discharge
--- NOTE | 2018-05-23 13:43 | CP.PCM.PN ---
Subjective - Date & Time of Evaluation Date of Evaluation: 05/23/18 Time of Evaluation: 12:50 - Subjective Subjective: NO CHEST PAIN OR SOB Objective - Vital Signs/Intake and Output Vital Signs (last 24 hours): Temp Pulse Resp BP Pulse Ox 97.2 F L 77 20 153/74 H 99 05/23/18 08:31 05/23/18 08:31 05/23/18 08:31 05/23/18 08:31 05/23/18 08:31 - Medications Medications: Current Medications Acetaminophen (Tylenol 325mg Tab) 650 mg PO Q4 PRN PRN Reason: Pain, Mild (1-3) Albuterol Sulfate (Albuterol 0.083% Inhal Autumn (2.5 Mg/3 Ml) Ud) 2.5 mg INH RQID [facility] Last Admin: 05/23/18 10:59 Dose: 2.5 mg Alendronate Sodium (Fosamax) 70 mg PO Fr@0600 [facility] Last Admin: 05/22/18 07:24 Dose: 70 mg Amlodipine Besylate (Norvasc) 10 mg PO DAILY [facility] Last Admin: 05/23/18 08:06 Dose: 10 mg Aspirin (Aspirin Chewable) 81 mg PO DAILY [facility] Last Admin: 05/23/18 08:06 Dose: 81 mg Atorvastatin Calcium (Lipitor) 10 mg PO HS [facility] Last Admin: 05/22/18 21:26 Dose: 10 mg Azithromycin (Zithromax) 250 mg PO DAILY [facility]; Protocol Stop: 05/26/18 09:01 Last Admin: 05/23/18 08:06 Dose: 250 mg Carvedilol (Coreg) 3.125 mg PO Q12@0900,2100 [facility] Last Admin: 05/23/18 08:05 Dose: 3.125 mg Cefdinir (Omnicef) 300 mg PO BID [facility] Last Admin: 05/23/18 08:05 Dose: 300 mg Collagenase (Santyl) 1 applic TOP DAILY [facility] Last Admin: 05/23/18 08:07 Dose: 1 applic Docusate Sodium (Colace) 100 mg PO BID [facility] Last Admin: 05/23/18 08:06 Dose: 100 mg Enalapril Maleate (Vasotec) 20 mg PO DAILY [facility] Last Admin: 05/23/18 08:06 Dose: 20 mg Ferrous Sulfate (Feosol) 325 mg PO TID [facility] Last Admin: 05/23/18 12:41 Dose: 325 mg Furosemide (Lasix) 20 mg PO DAILY [facility] Last Admin: 05/22/18 09:03 Dose: 20 mg Guaifenesin (Mucinex La) 600 mg PO Q12 [facility] Last Admin: 05/23/18 08:05 Dose: 600 mg Ipratropium [place] (Atrovent) 0.5 mg IH RQID [facility] Last Admin: 05/23/18 10:59 Dose: 0.5 mg Levalbuterol HCl (Xopenex) 0.63 mg INH RQ8 PRN PRN Reason: Wheezing Last Admin: 05/21/18 00:30 Dose: 0.63 mg Metformin HCl (Glucophage) 500 mg PO BID [facility] Last Admin: 05/23/18 08:05 Dose: 500 mg Montelukast Sodium (Singulair) 10 mg PO HS [facility] Last Admin: 05/22/18 21:26 Dose: 10 mg Multivitamins/Minerals (Therapeutic-M Tab) 1 tab PO DAILY [facility] Last Admin: 05/23/18 08:05 Dose: 1 tab Nystatin (Nystop Topical Powder) 1 applic TOP TID [facility] Last Admin: 05/23/18 12:41 Dose: 1 unit Pantoprazole Sodium (Protonix Ec Tab) 20 mg PO BID [facility] Last Admin: 05/23/18 08:06 Dose: 20 mg Paroxetine HCl (Paxil) 20 mg PO DAILY [facility] Last Admin: 05/23/18 08:06 Dose: 20 mg Simethicone (Mylicon Chew Tab) 80 mg PO Q8 PRN PRN Reason: Flatulence - Labs Labs: 05/20/18 06:12 05/20/18 06:12 - Respiratory Exam Respiratory Exam: Clear to Ausculation Bilateral - Cardiovascular Exam Cardiovascular Exam: REGULAR RHYTHM, +S1, +S2
[2018-05-23] MEDS ORDERED: Lidocaine 2% Jelly (5 ml) TOP ONE (17:19)
[2018-05-23] MEDS ORDERED: Lidocaine 2% GEL TOP ONE (17:45)
--- NOTE | 2018-05-23 20:25 | CP.PCM.PN ---
Subjective - Date & Time of Evaluation Date of Evaluation: 05/23/18 Time of Evaluation: 22:22 - Subjective Subjective: Above noted Objective - Vital Signs/Intake and Output Vital Signs (last 24 hours): Temp Pulse Resp BP Pulse Ox 98.2 F 78 20 141/63 99 05/23/18 19:36 05/23/18 19:36 05/23/18 19:36 05/23/18 19:36 05/23/18 19:36 - Medications Medications: Current Medications Acetaminophen (Tylenol 325mg Tab) 650 mg PO Q4 PRN PRN Reason: Pain, Mild (1-3) Albuterol Sulfate (Albuterol 0.083% Inhal Autumn (2.5 Mg/3 Ml) Ud) 2.5 mg INH RQID [facility] Last Admin: 05/23/18 19:04 Dose: 2.5 mg Alendronate Sodium (Fosamax) 70 mg PO Fr@0600 [facility] Last Admin: 05/22/18 07:24 Dose: 70 mg Amlodipine Besylate (Norvasc) 10 mg PO DAILY [facility] Last Admin: 05/23/18 08:06 Dose: 10 mg Aspirin (Aspirin Chewable) 81 mg PO DAILY [facility] Last Admin: 05/23/18 08:06 Dose: 81 mg Atorvastatin Calcium (Lipitor) 10 mg PO HS [facility] Last Admin: 05/22/18 21:26 Dose: 10 mg Azithromycin (Zithromax) 250 mg PO DAILY [facility]; Protocol Stop: 05/26/18 09:01 Last Admin: 05/23/18 08:06 Dose: 250 mg Carvedilol (Coreg) 3.125 mg PO Q12@0900,2100 [facility] Last Admin: 05/23/18 08:05 Dose: 3.125 mg Cefdinir (Omnicef) 300 mg PO BID [facility] Last Admin: 05/23/18 16:09 Dose: 300 mg Collagenase (Santyl) 1 applic TOP DAILY [facility] Last Admin: 05/23/18 08:07 Dose: 1 applic Docusate Sodium (Colace) 100 mg PO BID [facility] Last Admin: 05/23/18 16:09 Dose: 100 mg Enalapril Maleate (Vasotec) 20 mg PO DAILY [facility] Last Admin: 05/23/18 08:06 Dose: 20 mg Enoxaparin Sodium (Lovenox) 40 mg SC DAILY [facility]; Protocol Ferrous Sulfate (Feosol) 325 mg PO TID [facility] Last Admin: 05/23/18 16:09 Dose: 325 mg Furosemide (Lasix) 20 mg PO DAILY [facility] Last Admin: 05/22/18 09:03 Dose: 20 mg Guaifenesin (Mucinex La) 600 mg PO Q12 [facility] Last Admin: 05/23/18 08:05 Dose: 600 mg Hydrocortisone (Hydrocortisone 2.5%) 1 applic TOP BID [facility] Last Admin: 05/23/18 16:05 Dose: 1 applic Ipratropium [place] (Atrovent) 0.5 mg IH RQID [facility] Last Admin: 05/23/18 19:04 Dose: 0.5 mg Levalbuterol HCl (Xopenex) 0.63 mg INH RQ8 PRN PRN Reason: Wheezing Last Admin: 05/21/18 00:30 Dose: 0.63 mg Lorazepam (Ativan) 0.5 mg PO DAILY PRN PRN Reason: Anxiety Metformin HCl (Glucophage) 500 mg PO BID [facility] Last Admin: 05/23/18 16:09 Dose: 500 mg Montelukast Sodium (Singulair) 10 mg PO HS [facility] Last Admin: 05/22/18 21:26 Dose: 10 mg Multivitamins/Minerals (Therapeutic-M Tab) 1 tab PO DAILY [facility] Last Admin: 05/23/18 08:05 Dose: 1 tab Nystatin (Nystop Topical Powder) 1 applic TOP TID [facility] Last Admin: 05/23/18 16:07 Dose: 1 unit Pantoprazole Sodium (Protonix Ec Tab) 20 mg PO BID [facility] Last Admin: 05/23/18 16:09 Dose: 20 mg Paroxetine HCl (Paxil) 20 mg PO DAILY [facility] Last Admin: 05/23/18 08:06 Dose: 20 mg Simethicone (Mylicon Chew Tab) 80 mg PO Q8 PRN PRN Reason: Flatulence - Labs Labs: 05/20/18 06:12 05/20/18 06:12 - Respiratory Exam Respiratory Exam: NORMAL BREATHING PATTERN - Cardiovascular Exam Cardiovascular Exam: REGULAR RHYTHM - GI/Abdominal Exam GI & Abdominal Exam: Normal Bowel Sounds Assessment and Plan - Assessment and Plan (Free Text) Assessment: Deconditioning Rehab Acute ant wall [place] + CE CT scan CHF O2 JAYESH B-annia Nitrates ASA Lovenox Cardiology Echo Fall etiol?? 2 to above? Telemetry Neuro cardiology COPD R pleural effusion ? 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
--- NOTE | 2018-05-24 06:30 | CP.PCM.CON ---
History of Present Illness - History of Present Illness History of Present Illness: Surgery General Surgery consult note for Dr. Koo Consulted for: prolapsed hemorrhoid 86F with PMH including hemorrhoids and constipation for which she takes stool softeners at home who is admitted to TCU for PT/OT after being admitted for pneumonia . Patient states that she had to strain to have a bowel movement and felt her rectum sticking out. She stated that at the time it was a little sore. The nurse reported that she saw a hemorrhoid mildly protruding out but was able to reduce it easily without recurrence of the prolapse. Patient denies any blood around the rectum or in the stool, or any nausea, vomiting, diarrhea, abdominal pain, dysuria, hematuria, or any other symptoms. Patient states that her pain completely resolved when the hemorrhoid was reduced. Patient states that she has had an operation of the rectum with Dr. Koo a few years ago, but does not recall the nature of the surgery. Hemorrhoids were reduced on the bedside. PMH hemorrhoids, pneumonia Review of Systems - Review of Systems Review of Systems: See HPI Past Patient History - Past Medical History & Family History Past Medical History?: Yes - Past Social History Smoking Status: Former Smoker - CARDIAC Hx Congestive Heart Failure: Yes Hx Hypercholesterolemia: Yes Hx Hypertension: Yes - PULMONARY Hx Asthma: Yes Hx Bronchitis: Yes - NEUROLOGICAL Hx Neurological Disorder: No - HEENT Hx HEENT Problems: No - RENAL Hx Chronic Kidney Disease: No - ENDOCRINE/METABOLIC Hx Endocrine Disorders: No - HEMATOLOGICAL/ONCOLOGICAL Hx Blood Disorders: No - INTEGUMENTARY Hx Dermatological Problems: No - MUSCULOSKELETAL/RHEUMATOLOGICAL Hx Falls: Yes - GASTROINTESTINAL Hx Gastrointestinal Disorders: No Hx Pancreatitis: No - GENITOURINARY/GYNECOLOGICAL Hx Genitourinary Disorders: No - PSYCHIATRIC Hx Anxiety: Yes Hx Paranoia: Yes Hx Substance Use: No - SURGICAL HISTORY Hx Surgeries: No - ANESTHESIA Hx Anesthesia: Yes Hx Anesthesia Reactions: No Hx Malignant Hyperthermia: No Meds Allergies/Adverse Reactions: Allergies Allergy/AdvReac Type Severity Reaction Status Date / Time No Known Allergies Allergy Verified 05/19/18 14:34 - Medications Medications: Current Medications Acetaminophen (Tylenol 325mg Tab) 650 mg PO Q4 PRN PRN Reason: Pain, Mild (1-3) Albuterol Sulfate (Albuterol 0.083% Inhal Autumn (2.5 Mg/3 Ml) Ud) 2.5 mg INH RQID [facility] Last Admin: 05/23/18 19:04 Dose: 2.5 mg Alendronate Sodium (Fosamax) 70 mg PO Fr@0600 [facility] Last Admin: 05/22/18 07:24 Dose: 70 mg Amlodipine Besylate (Norvasc) 10 mg PO DAILY [facility] Last Admin: 05/23/18 08:06 Dose: 10 mg Aspirin (Aspirin Chewable) 81 mg PO DAILY [facility] Last Admin: 05/23/18 08:06 Dose: 81 mg Atorvastatin Calcium (Lipitor) 10 mg PO HS [facility] Last Admin: 05/23/18 21:12 Dose: 10 mg Azithromycin (Zithromax) 250 mg PO DAILY [facility]; Protocol Stop: 05/26/18 09:01 Last Admin: 05/23/18 08:06 Dose: 250 mg Carvedilol (Coreg) 3.125 mg PO Q12@0900,2100 [facility] Last Admin: 05/23/18 21:12 Dose: 3.125 mg Cefdinir (Omnicef) 300 mg PO BID [facility] Last Admin: 05/23/18 16:09 Dose: 300 mg Collagenase (Santyl) 1 applic TOP DAILY [facility] Last Admin: 05/23/18 08:07 Dose: 1 applic Docusate Sodium (Colace) 100 mg PO BID [facility] Last Admin: 05/23/18 16:09 Dose: 100 mg Enalapril Maleate (Vasotec) 20 mg PO DAILY [facility] Last Admin: 05/23/18 08:06 Dose: 20 mg Enoxaparin Sodium (Lovenox) 40 mg SC DAILY [facility]; Protocol Ferrous Sulfate (Feosol) 325 mg PO TID [facility] Last Admin: 05/23/18 16:09 Dose: 325 mg Furosemide (Lasix) 20 mg PO DAILY [facility] Last Admin: 05/22/18 09:03 Dose: 20 mg Guaifenesin (Mucinex La) 600 mg PO Q12 [facility] Last Admin: 05/23/18 21:12 Dose: 600 mg Hydrocortisone (Hydrocortisone 2.5%) 1 applic TOP BID [facility] Last Admin: 05/23/18 16:05 Dose: 1 applic Ipratropium [place] (Atrovent) 0.5 mg IH RQID [facility] Last Admin: 05/23/18 19:04 Dose: 0.5 mg Levalbuterol HCl (Xopenex) 0.63 mg INH RQ8 PRN PRN Reason: Wheezing Last Admin: 05/21/18 00:30 Dose: 0.63 mg Lorazepam (Ativan) 0.5 mg PO DAILY PRN PRN Reason: Anxiety Last Admin: 05/23/18 21:11 Dose: 0.5 mg Metformin HCl (Glucophage) 500 mg PO BID [facility] Last Admin: 05/23/18 16:09 Dose: 500 mg Montelukast Sodium (Singulair) 10 mg PO HS [facility] Last Admin: 05/23/18 21:12 Dose: 10 mg Multivitamins/Minerals (Therapeutic-M Tab) 1 tab PO DAILY [facility] Last Admin: 05/23/18 08:05 Dose: 1 tab Nystatin (Nystop Topical Powder) 1 applic TOP TID [facility] Last Admin: 05/23/18 16:07 Dose: 1 unit Pantoprazole Sodium (Protonix Ec Tab) 20 mg PO BID [facility] Last Admin: 05/23/18 16:09 Dose: 20 mg Paroxetine HCl (Paxil) 20 mg PO DAILY [facility] Last Admin: 05/23/18 08:06 Dose: 20 mg Simethicone (Mylicon Chew Tab) 80 mg PO Q8 PRN PRN Reason: Flatulence Physical Exam - Constitutional Appears: No Acute Distress, Cachectic - Head Exam Head Exam: ATRAUMATIC, NORMAL INSPECTION, NORMOCEPHALIC - Eye Exam Eye Exam: EOMI, Normal appearance, PERRL Pupil Exam: NORMAL ACCOMODATION, PERRL - ENT Exam ENT Exam: Mucous Membranes Moist - Neck Exam Neck exam: Positive for: Normal Inspection - Respiratory Exam Respiratory Exam: NORMAL BREATHING PATTERN - Cardiovascular Exam Cardiovascular Exam: REGULAR RHYTHM - GI/Abdominal Exam GI & Abdominal Exam: Normal Bowel Sounds - Rectal Exam Rectal Exam: Hemorrhoids Additional comments: Mildly tender - Exam Exam: NORMAL INSPECTION - Extremities Exam Extremities exam: Positive for: normal inspection - Back Exam Back exam: NORMAL INSPECTION - Neurological Exam Neurological exam: Alert, CN II-XII Intact, Normal Gait, Oriented x3, Reflexes Normal - Psychiatric Exam Psychiatric exam: Normal Affect, Normal Mood - Skin Skin Exam: Dry, Intact, Normal Color, Warm Results - Vital Signs Recent Vital Signs: Last Vital Signs Temp 98.2 F 05/23/18 19:36 Pulse 78 05/23/18 21:12 Resp 20 05/23/18 19:36 BP 141/63 11/17/18 21:12 Pulse Ox 99 05/23/18 19:36 - Labs Result Diagrams: 05/20/18 06:12 05/20/18 06:12 Labs: Laboratory Results - last 24 hr 05/23/18 05/23/18 05/24/18 06:43 15:41 05:51 POC Glucose (mg/dL) 112 H 163 H 117 H Assessment & Plan - Assessment and Plan (Free Text) Assessment: Hemorrhoid reduced : non thrombosed -Sitz bath after BM -Hemrrhoidal cream -Manual reduction PRN -follow up at Dr. Koo's office to schedule for surgery to get hemorrhoid removed electively -No emergent surgical intervention WIll DW Dr. Koo
[2018-05-24] MEDS: Albuterol 0.083% Inhal Sol (2.5 mg/3 mL) UD INH SCH ×4 (07:13→19:57)
[2018-05-24] MEDS: Ipratropium 0.02% Inhal Soln (0.5 mg/2.5 ml) UD IH SCH ×4 (07:13→19:57)
[2018-05-24] MEDS: Enoxaparin 40 mg Syringe SC SCH (09:18)
[2018-05-24] MEDS: guaiFENesin 600 mg ER Tab PO SCH ×2 (09:18→21:08)
[2018-05-24] MEDS: Cefdinir 300 MG CAP PO SCH ×2 (09:19→17:43)
[2018-05-24] MEDS: Pantoprazole 20 mg EC Tab PO SCH ×2 (09:20→17:43)
[2018-05-24] MEDS: Multivitamin With Minerals Tab PO SCH (09:20)
[2018-05-24] MEDS: Santyl Collagenase OINTMENT TOP SCH (09:27)
--- NOTE | 2018-05-24 12:56 | CP.PCM.PN ---
Subjective - Date & Time of Evaluation Date of Evaluation: 05/24/18 Time of Evaluation: 12:55 - Subjective Subjective: Podiatry progress note for Dr. You 88 yo female seen at bedside for right ankle wound. Resting comfortably. Denies acute overnight events. Denies pain to the lower extremity. Denies N/V/F/C/SOB/CP today. Objective - Vital Signs/Intake and Output Vital Signs (last 24 hours): Temp Pulse Resp BP Pulse Ox 97.0 F L 69 20 158/77 H 100 05/24/18 07:37 05/24/18 09:19 05/24/18 07:37 05/24/18 09:19 05/24/18 07:37 - Medications Medications: Current Medications Acetaminophen (Tylenol 325mg Tab) 650 mg PO Q4 PRN PRN Reason: Pain, Mild (1-3) Albuterol Sulfate (Albuterol 0.083% Inhal Autumn (2.5 Mg/3 Ml) Ud) 2.5 mg INH RQID [facility] Last Admin: 05/24/18 11:10 Dose: 2.5 mg Alendronate Sodium (Fosamax) 70 mg PO Fr@0600 [facility] Last Admin: 05/22/18 07:24 Dose: 70 mg Amlodipine Besylate (Norvasc) 10 mg PO DAILY [facility] Last Admin: 05/24/18 09:19 Dose: 10 mg Aspirin (Aspirin Chewable) 81 mg PO DAILY [facility] Last Admin: 05/24/18 09:16 Dose: 81 mg Atorvastatin Calcium (Lipitor) 10 mg PO HS [facility] Last Admin: 05/23/18 21:12 Dose: 10 mg Azithromycin (Zithromax) 250 mg PO DAILY [facility]; Protocol Stop: 05/26/18 09:01 Last Admin: 05/24/18 09:20 Dose: 250 mg Carvedilol (Coreg) 3.125 mg PO Q12@0900,2100 [facility] Last Admin: 05/24/18 09:16 Dose: 3.125 mg Cefdinir (Omnicef) 300 mg PO BID [facility] Last Admin: 05/24/18 09:19 Dose: 300 mg Collagenase (Santyl) 1 applic TOP DAILY [facility] Last Admin: 05/24/18 09:27 Dose: Not Given Docusate Sodium (Colace) 100 mg PO BID [facility] Last Admin: 05/24/18 09:16 Dose: 100 mg Enalapril Maleate (Vasotec) 20 mg PO DAILY [facility] Last Admin: 05/24/18 09:20 Dose: 20 mg Enoxaparin Sodium (Lovenox) 40 mg SC DAILY [facility]; Protocol Last Admin: 05/24/18 09:18 Dose: 40 mg Ferrous Sulfate (Feosol) 325 mg PO TID [facility] Last Admin: 05/24/18 12:21 Dose: 325 mg Furosemide (Lasix) 20 mg PO DAILY [facility] Last Admin: 05/22/18 09:03 Dose: 20 mg Guaifenesin (Mucinex La) 600 mg PO Q12 [facility] Last Admin: 05/24/18 09:18 Dose: 600 mg Hydrocortisone (Hydrocortisone 2.5%) 1 applic TOP BID [facility] Last Admin: 05/24/18 09:18 Dose: 1 applic Ipratropium [place] (Atrovent) 0.5 mg IH RQID [facility] Last Admin: 05/24/18 11:11 Dose: 0.5 mg Levalbuterol HCl (Xopenex) 0.63 mg INH RQ8 PRN PRN Reason: Wheezing Last Admin: 05/21/18 00:30 Dose: 0.63 mg Lorazepam (Ativan) 0.5 mg PO DAILY PRN PRN Reason: Anxiety Last Admin: 05/23/18 21:11 Dose: 0.5 mg Metformin HCl (Glucophage) 500 mg PO BID [facility] Last Admin: 05/24/18 09:17 Dose: 500 mg Montelukast Sodium (Singulair) 10 mg PO HS [facility] Last Admin: 05/23/18 21:12 Dose: 10 mg Multivitamins/Minerals (Therapeutic-M Tab) 1 tab PO DAILY [facility] Last Admin: 05/24/18 09:20 Dose: 1 tab Nystatin (Nystop Topical Powder) 1 applic TOP TID [facility] Last Admin: 05/24/18 12:21 Dose: 1 applic Pantoprazole Sodium (Protonix Ec Tab) 20 mg PO BID [facility] Last Admin: 05/24/18 09:20 Dose: 20 mg Paroxetine HCl (Paxil) 20 mg PO DAILY [facility] Last Admin: 05/24/18 09:19 Dose: 20 mg Simethicone (Mylicon Chew Tab) 80 mg PO Q8 PRN PRN Reason: Flatulence - Labs Labs: 05/20/18 06:12 05/20/18 06:12 - Constitutional Appears: Well, Non-toxic, No Acute Distress - Head Exam Head Exam: ATRAUMATIC, NORMOCEPHALIC - Extremities Exam Additional comments: Right lower extremity exam: vascular: dp/pt pulses palpable, CFT <3 secs x 5, Tg warm to cool, periwound erythema noted, no erythema otherwise, no edema noted neuro: unable to obtain derm: right medial malleolus wound with fibrogranular base noted measuring approimately 1cm x 1cm, periwound erythema, minimal serous drainage noted on the dressing, no malodor, no clinical signs of infection ortho: minimal pain on palpation to the wound - Neurological Exam Neurological Exam: Alert, Awake, Oriented x3 - Psychiatric Exam Psychiatric exam: Normal Affect, Normal Mood Assessment and Plan - Assessment and Plan (Free Text) Assessment: 88 yo female with stable right ankle wound Plan: Patient seen and evaluated Chart, labs and vitals reviewed Santyl and DSD applied to wound, patient stated coban dressing was uncomfortable Podiatry will continue to follow the patient while in house Patient will follow up with Dr. You upon discharge
--- NOTE | 2018-05-24 15:02 | CP.PCM.PN ---
Subjective - Date & Time of Evaluation Date of Evaluation: 05/24/18 Time of Evaluation: 22:22 - Subjective Subjective: Above noted Objective - Vital Signs/Intake and Output Vital Signs (last 24 hours): Temp Pulse Resp BP Pulse Ox 97.0 F L 69 20 158/77 H 100 05/24/18 07:37 05/24/18 09:19 05/24/18 07:37 05/24/18 09:19 05/24/18 07:37 - Medications Medications: Current Medications Acetaminophen (Tylenol 325mg Tab) 650 mg PO Q4 PRN PRN Reason: Pain, Mild (1-3) Albuterol Sulfate (Albuterol 0.083% Inhal Autumn (2.5 Mg/3 Ml) Ud) 2.5 mg INH RQID [facility] Last Admin: 05/24/18 11:10 Dose: 2.5 mg Alendronate Sodium (Fosamax) 70 mg PO Fr@0600 [facility] Last Admin: 05/22/18 07:24 Dose: 70 mg Amlodipine Besylate (Norvasc) 10 mg PO DAILY [facility] Last Admin: 05/24/18 09:19 Dose: 10 mg Aspirin (Aspirin Chewable) 81 mg PO DAILY [facility] Last Admin: 05/24/18 09:16 Dose: 81 mg Atorvastatin Calcium (Lipitor) 10 mg PO HS [facility] Last Admin: 05/23/18 21:12 Dose: 10 mg Azithromycin (Zithromax) 250 mg PO DAILY [facility]; Protocol Stop: 05/26/18 09:01 Last Admin: 05/24/18 09:20 Dose: 250 mg Carvedilol (Coreg) 3.125 mg PO Q12@0900,2100 [facility] Last Admin: 05/24/18 09:16 Dose: 3.125 mg Cefdinir (Omnicef) 300 mg PO BID [facility] Last Admin: 05/24/18 09:19 Dose: 300 mg Collagenase (Santyl) 1 applic TOP DAILY [facility] Last Admin: 05/24/18 09:27 Dose: Not Given Docusate Sodium (Colace) 100 mg PO BID [facility] Last Admin: 05/24/18 09:16 Dose: 100 mg Enalapril Maleate (Vasotec) 20 mg PO DAILY [facility] Last Admin: 05/24/18 09:20 Dose: 20 mg Enoxaparin Sodium (Lovenox) 40 mg SC DAILY [facility]; Protocol Last Admin: 05/24/18 09:18 Dose: 40 mg Ferrous Sulfate (Feosol) 325 mg PO TID [facility] Last Admin: 05/24/18 12:21 Dose: 325 mg Furosemide (Lasix) 20 mg PO DAILY [facility] Last Admin: 05/22/18 09:03 Dose: 20 mg Guaifenesin (Mucinex La) 600 mg PO Q12 [facility] Last Admin: 05/24/18 09:18 Dose: 600 mg Hydrocortisone (Hydrocortisone 2.5%) 1 applic TOP BID [facility] Last Admin: 05/24/18 09:18 Dose: 1 applic Ipratropium [place] (Atrovent) 0.5 mg IH RQID [facility] Last Admin: 05/24/18 11:11 Dose: 0.5 mg Levalbuterol HCl (Xopenex) 0.63 mg INH RQ8 PRN PRN Reason: Wheezing Last Admin: 05/21/18 00:30 Dose: 0.63 mg Lorazepam (Ativan) 0.5 mg PO DAILY PRN PRN Reason: Anxiety Last Admin: 05/23/18 21:11 Dose: 0.5 mg Metformin HCl (Glucophage) 500 mg PO BID [facility] Last Admin: 05/24/18 09:17 Dose: 500 mg Montelukast Sodium (Singulair) 10 mg PO HS [facility] Last Admin: 05/23/18 21:12 Dose: 10 mg Multivitamins/Minerals (Therapeutic-M Tab) 1 tab PO DAILY [facility] Last Admin: 05/24/18 09:20 Dose: 1 tab Nystatin (Nystop Topical Powder) 1 applic TOP TID [facility] Last Admin: 05/24/18 12:21 Dose: 1 applic Pantoprazole Sodium (Protonix Ec Tab) 20 mg PO BID [facility] Last Admin: 05/24/18 09:20 Dose: 20 mg Paroxetine HCl (Paxil) 20 mg PO DAILY [facility] Last Admin: 05/24/18 09:19 Dose: 20 mg Simethicone (Mylicon Chew Tab) 80 mg PO Q8 PRN PRN Reason: Flatulence - Labs Labs: 05/20/18 06:12 05/20/18 06:12 - Respiratory Exam Respiratory Exam: NORMAL BREATHING PATTERN - Cardiovascular Exam Cardiovascular Exam: REGULAR RHYTHM - GI/Abdominal Exam GI & Abdominal Exam: Normal Bowel Sounds Assessment and Plan - Assessment and Plan (Free Text) Assessment: Deconditioning Rehab Acute ant wall MN + CE CT scan CHF O2 JAYESH B-annia Nitrates ASA Lovenox Cardiology Echo Fall etiol?? 2 to above? Telemetry Neuro cardiology COPD R pleural effusion ? 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
[2018-05-24] MEDS: Anusol Suppository PR PRN (15:06)
[2018-05-25 06:58] LABS: HEMOGLOBIN 11.6 g/dL (12.0-16.0); MEAN CELL VOLUME 98.6 fl (81.0-99.0); MEAN CORPUSCULAR HEMOGLOBIN 32.9 pg (27.0-31.0); MEAN CORPUSCULAR HGB CONC 33.4 g/dL (33.0-37.0); RBC 3.52 Mil/uL (3.80-5.20); RED CELL DISTRIBUTION WIDTH 13.8 % (11.5-14.5)
[2018-05-25 07:13] LABS: ALB/GLOB RATIO 1.5 (1.0-2.1); ALBUMIN 4.1 g/dL (3.5-5.0); ALT/SGPT 34 U/L (9-52); AST/SGOT 34 U/L (14-36); BLOOD UREA NITROGEN 11 mg/dl (7-17); CALCIUM 8.9 mg/dL (8.4-10.2); GFR NON-AFRICAN AMERICAN > 60
[2018-05-25] MEDS: Albuterol 0.083% Inhal Sol (2.5 mg/3 mL) UD INH SCH ×4 (07:39→19:11)
[2018-05-25] MEDS: Ipratropium 0.02% Inhal Soln (0.5 mg/2.5 ml) UD IH SCH ×4 (07:39→19:11)
[2018-05-25] MEDS: Enoxaparin 40 mg Syringe SC SCH (08:21)
[2018-05-25] MEDS: guaiFENesin 600 mg ER Tab PO SCH ×2 (08:21→21:25)
[2018-05-25] MEDS: Pantoprazole 20 mg EC Tab PO SCH ×2 (08:22→16:32)
[2018-05-25] MEDS: Cefdinir 300 MG CAP PO SCH ×2 (08:22→16:32)
[2018-05-25] MEDS: Santyl Collagenase OINTMENT TOP SCH (08:24)
[2018-05-25] MEDS: Multivitamin With Minerals Tab PO SCH (08:24)
--- NOTE | 2018-05-25 09:33 | CP.PCM.PN ---
Subjective - Date & Time of Evaluation Date of Evaluation: 05/25/18 Time of Evaluation: 08:15 - Subjective Subjective: NO CHEST PAIN OR SOB Objective - Vital Signs/Intake and Output Vital Signs (last 24 hours): Temp Pulse Resp BP Pulse Ox 97.2 F L 69 18 141/68 99 05/25/18 07:51 05/25/18 08:23 05/25/18 07:51 05/25/18 08:32 05/25/18 07:51 - Medications Medications: Current Medications Acetaminophen (Tylenol 325mg Tab) 650 mg PO Q4 PRN PRN Reason: Pain, Mild (1-3) Albuterol Sulfate (Albuterol 0.083% Inhal Autumn (2.5 Mg/3 Ml) Ud) 2.5 mg INH RQID [facility] Last Admin: 05/25/18 07:39 Dose: 2.5 mg Alendronate Sodium (Fosamax) 70 mg PO Fr@0600 [facility] Last Admin: 05/22/18 07:24 Dose: 70 mg Amlodipine Besylate (Norvasc) 10 mg PO DAILY [facility] Last Admin: 05/25/18 08:22 Dose: 10 mg Aspirin (Aspirin Chewable) 81 mg PO DAILY [facility] Last Admin: 05/25/18 08:23 Dose: 81 mg Atorvastatin Calcium (Lipitor) 10 mg PO HS [facility] Last Admin: 05/24/18 21:08 Dose: 10 mg Azithromycin (Zithromax) 250 mg PO DAILY [facility]; Protocol Stop: 05/26/18 09:01 Last Admin: 05/25/18 08:24 Dose: 250 mg Carvedilol (Coreg) 3.125 mg PO Q12@0900,2100 [facility] Last Admin: 05/25/18 08:23 Dose: 3.125 mg Cefdinir (Omnicef) 300 mg PO BID [facility] Last Admin: 05/25/18 08:22 Dose: 300 mg Collagenase (Santyl) 1 applic TOP DAILY [facility] Last Admin: 05/25/18 08:24 Dose: Not Given Docusate Sodium (Colace) 100 mg PO BID [facility] Last Admin: 05/25/18 08:22 Dose: 100 mg Enalapril Maleate (Vasotec) 20 mg PO DAILY [facility] Last Admin: 05/25/18 08:24 Dose: 20 mg Enoxaparin Sodium (Lovenox) 40 mg SC DAILY [facility]; Protocol Last Admin: 05/25/18 08:21 Dose: 40 mg Ferrous Sulfate (Feosol) 325 mg PO TID [facility] Last Admin: 05/25/18 08:23 Dose: 325 mg Furosemide (Lasix) 20 mg PO DAILY [facility] Last Admin: 05/25/18 08:32 Dose: 20 mg Guaifenesin (Mucinex La) 600 mg PO Q12 [facility] Last Admin: 05/25/18 08:21 Dose: 600 mg Hydrocortisone (Hydrocortisone 2.5%) 1 applic TOP BID [facility] Last Admin: 05/25/18 08:30 Dose: 1 applic Ipratropium [place] (Atrovent) 0.5 mg IH RQID [facility] Last Admin: 05/25/18 07:39 Dose: 0.5 mg Levalbuterol HCl (Xopenex) 0.63 mg INH RQ8 PRN PRN Reason: Wheezing Last Admin: 05/21/18 00:30 Dose: 0.63 mg Lorazepam (Ativan) 0.5 mg PO DAILY PRN PRN Reason: Anxiety Last Admin: 05/23/18 21:11 Dose: 0.5 mg Metformin HCl (Glucophage) 500 mg PO BID [facility] Last Admin: 05/25/18 08:21 Dose: 500 mg Montelukast Sodium (Singulair) 10 mg PO HS [facility] Last Admin: 05/24/18 21:09 Dose: 10 mg Multivitamins/Minerals (Therapeutic-M Tab) 1 tab PO DAILY [facility] Last Admin: 05/25/18 08:24 Dose: 1 tab Nystatin (Nystop Topical Powder) 1 applic TOP TID [facility] Last Admin: 05/24/18 18:03 Dose: Not Given Pantoprazole Sodium (Protonix Ec Tab) 20 mg PO BID [facility] Last Admin: 05/25/18 08:22 Dose: 20 mg Paroxetine HCl (Paxil) 20 mg PO DAILY [facility] Last Admin: 05/25/18 08:26 Dose: 20 mg Simethicone (Mylicon Chew Tab) 80 mg PO Q8 PRN PRN Reason: Flatulence - Labs Labs: 05/25/18 06:00 05/25/18 06:00 - Respiratory Exam Respiratory Exam: Decreased Breath Sounds - Cardiovascular Exam Cardiovascular Exam: REGULAR RHYTHM, +S1, +S2 - Extremities Exam Additional comments: NO LE EDEMA Assessment and Plan - Assessment and Plan (Free Text) Assessment: CAD WITH RECENT AWMI COPD WITH PNEUMONIA HYPERTENSION DM Plan: CONTINUE ASPIRIN, LOVENOX, ENALAPRIL, CARVEDILOL, AMLODIPINE, ATORVASTATIN, FUROSEMIDE, GLUCOPHAGE, COPD MEDS AND ANTIBIOTICS
[2018-05-25] MEDS ORDERED: Sodium Chloride 0.9% 1,000 ML IV SCH (10:30)
--- NOTE | 2018-05-25 11:05 | CP.PCM.PN ---
Subjective - Date & Time of Evaluation Date of Evaluation: 05/25/18 Time of Evaluation: 10:57 - Subjective Subjective: Appears comfortable lying in bed. Vital signs remain stable, afebrile. Occasional dry cough, no chest pain or SOB. Breath sounds well heard in both lungs w/o wheezes. Occasional dry rales in dependant lung regions. Needs two more days of antibiotic therapy to complete 10 days. Objective - Vital Signs/Intake and Output Vital Signs (last 24 hours): Temp Pulse Resp BP Pulse Ox 97.2 F L 69 18 141/68 99 05/25/18 07:51 05/25/18 08:23 05/25/18 07:51 05/25/18 08:32 05/25/18 07:51 - Medications Medications: Current Medications Acetaminophen (Tylenol 325mg Tab) 650 mg PO Q4 PRN PRN Reason: Pain, Mild (1-3) Albuterol Sulfate (Albuterol 0.083% Inhal Autumn (2.5 Mg/3 Ml) Ud) 2.5 mg INH RQID [facility] Last Admin: 05/25/18 07:39 Dose: 2.5 mg Alendronate Sodium (Fosamax) 70 mg PO Fr@0600 [facility] Last Admin: 05/22/18 07:24 Dose: 70 mg Amlodipine Besylate (Norvasc) 10 mg PO DAILY [facility] Last Admin: 05/25/18 08:22 Dose: 10 mg Aspirin (Aspirin Chewable) 81 mg PO DAILY [facility] Last Admin: 05/25/18 08:23 Dose: 81 mg Atorvastatin Calcium (Lipitor) 10 mg PO HS [facility] Last Admin: 05/24/18 21:08 Dose: 10 mg Azithromycin (Zithromax) 250 mg PO DAILY [facility]; Protocol Stop: 05/26/18 09:01 Last Admin: 05/25/18 08:24 Dose: 250 mg Carvedilol (Coreg) 3.125 mg PO Q12@0900,2100 [facility] Last Admin: 05/25/18 08:23 Dose: 3.125 mg Cefdinir (Omnicef) 300 mg PO BID [facility] Last Admin: 05/25/18 08:22 Dose: 300 mg Collagenase (Santyl) 1 applic TOP DAILY [facility] Last Admin: 05/25/18 08:24 Dose: Not Given Docusate Sodium (Colace) 100 mg PO BID [facility] Last Admin: 05/25/18 08:22 Dose: 100 mg Enalapril Maleate (Vasotec) 20 mg PO DAILY [facility] Last Admin: 05/25/18 08:24 Dose: 20 mg Enoxaparin Sodium (Lovenox) 40 mg SC DAILY [facility]; Protocol Last Admin: 05/25/18 08:21 Dose: 40 mg Ferrous Sulfate (Feosol) 325 mg PO TID [facility] Last Admin: 05/25/18 08:23 Dose: 325 mg Furosemide (Lasix) 20 mg PO DAILY [facility] Last Admin: 05/25/18 08:32 Dose: 20 mg Guaifenesin (Mucinex La) 600 mg PO Q12 [facility] Last Admin: 05/25/18 08:21 Dose: 600 mg Hydrocortisone (Hydrocortisone 2.5%) 1 applic TOP BID [facility] Last Admin: 05/25/18 08:30 Dose: 1 applic Sodium Chloride (Sodium Chloride 0.9%) 1,000 mls @ 30 mls/hr IV .Q24H [facility] Stop: 05/26/18 10:29 Last Admin: 05/25/18 10:52 Dose: 30 mls/hr Ipratropium [place] (Atrovent) 0.5 mg IH RQID [facility] Last Admin: 05/25/18 07:39 Dose: 0.5 mg Levalbuterol HCl (Xopenex) 0.63 mg INH RQ8 PRN PRN Reason: Wheezing Last Admin: 05/21/18 00:30 Dose: 0.63 mg Lorazepam (Ativan) 0.5 mg PO DAILY PRN PRN Reason: Anxiety Last Admin: 05/23/18 21:11 Dose: 0.5 mg Metformin HCl (Glucophage) 500 mg PO BID [facility] Last Admin: 05/25/18 08:21 Dose: 500 mg Montelukast Sodium (Singulair) 10 mg PO HS [facility] Last Admin: 05/24/18 21:09 Dose: 10 mg Multivitamins/Minerals (Therapeutic-M Tab) 1 tab PO DAILY [facility] Last Admin: 05/25/18 08:24 Dose: 1 tab Nystatin (Nystop Topical Powder) 1 applic TOP TID [facility] Last Admin: 05/25/18 10:51 Dose: 1 applic Pantoprazole Sodium (Protonix Ec Tab) 20 mg PO BID [facility] Last Admin: 05/25/18 08:22 Dose: 20 mg Paroxetine HCl (Paxil) 20 mg PO DAILY [facility] Last Admin: 05/25/18 08:26 Dose: 20 mg Simethicone (Mylicon Chew Tab) 80 mg PO Q8 PRN PRN Reason: Flatulence - Labs Labs: 05/25/18 06:00 05/25/18 06:00 Assessment and Plan (1) Pneumonia Status: Acute (2) Bronchial asthma Status: Chronic (3) Pleural effusion Status: Acute
--- NOTE | 2018-05-25 11:05 | CP.PCM.PN ---
Subjective - Date & Time of Evaluation Date of Evaluation: 05/25/18 Time of Evaluation: 11:00 - Subjective Subjective: patient awake and conscious in bed Patient is talkative no shortness of breath no difficulty breathing patient stated she is sleeping fl at Objective - Vital Signs/Intake and Output Vital Signs (last 24 hours): Temp Pulse Resp BP Pulse Ox 97.2 F L 69 18 141/68 99 05/25/18 07:51 05/25/18 08:23 05/25/18 07:51 05/25/18 08:32 05/25/18 07:51 - Medications Medications: Current Medications Acetaminophen (Tylenol 325mg Tab) 650 mg PO Q4 PRN PRN Reason: Pain, Mild (1-3) Albuterol Sulfate (Albuterol 0.083% Inhal Autumn (2.5 Mg/3 Ml) Ud) 2.5 mg INH RQID [facility] Last Admin: 05/25/18 07:39 Dose: 2.5 mg Alendronate Sodium (Fosamax) 70 mg PO Fr@0600 [facility] Last Admin: 05/22/18 07:24 Dose: 70 mg Amlodipine Besylate (Norvasc) 10 mg PO DAILY [facility] Last Admin: 05/25/18 08:22 Dose: 10 mg Aspirin (Aspirin Chewable) 81 mg PO DAILY [facility] Last Admin: 05/25/18 08:23 Dose: 81 mg Atorvastatin Calcium (Lipitor) 10 mg PO HS [facility] Last Admin: 05/24/18 21:08 Dose: 10 mg Azithromycin (Zithromax) 250 mg PO DAILY [facility]; Protocol Stop: 05/26/18 09:01 Last Admin: 05/25/18 08:24 Dose: 250 mg Carvedilol (Coreg) 3.125 mg PO Q12@0900,2100 [facility] Last Admin: 05/25/18 08:23 Dose: 3.125 mg Cefdinir (Omnicef) 300 mg PO BID [facility] Last Admin: 05/25/18 08:22 Dose: 300 mg Collagenase (Santyl) 1 applic TOP DAILY [facility] Last Admin: 05/25/18 08:24 Dose: Not Given Docusate Sodium (Colace) 100 mg PO BID [facility] Last Admin: 05/25/18 08:22 Dose: 100 mg Enalapril Maleate (Vasotec) 20 mg PO DAILY [facility] Last Admin: 05/25/18 08:24 Dose: 20 mg Enoxaparin Sodium (Lovenox) 40 mg SC DAILY [facility]; Protocol Last Admin: 05/25/18 08:21 Dose: 40 mg Ferrous Sulfate (Feosol) 325 mg PO TID [facility] Last Admin: 05/25/18 08:23 Dose: 325 mg Furosemide (Lasix) 20 mg PO DAILY [facility] Last Admin: 05/25/18 08:32 Dose: 20 mg Guaifenesin (Mucinex La) 600 mg PO Q12 [facility] Last Admin: 05/25/18 08:21 Dose: 600 mg Hydrocortisone (Hydrocortisone 2.5%) 1 applic TOP BID [facility] Last Admin: 05/25/18 08:30 Dose: 1 applic Sodium Chloride (Sodium Chloride 0.9%) 1,000 mls @ 30 mls/hr IV .Q24H [facility] Stop: 05/26/18 10:29 Last Admin: 05/25/18 10:52 Dose: 30 mls/hr Ipratropium [place] (Atrovent) 0.5 mg IH RQID [facility] Last Admin: 05/25/18 07:39 Dose: 0.5 mg Levalbuterol HCl (Xopenex) 0.63 mg INH RQ8 PRN PRN Reason: Wheezing Last Admin: 05/21/18 00:30 Dose: 0.63 mg Lorazepam (Ativan) 0.5 mg PO DAILY PRN PRN Reason: Anxiety Last Admin: 05/23/18 21:11 Dose: 0.5 mg Metformin HCl (Glucophage) 500 mg PO BID [facility] Last Admin: 05/25/18 08:21 Dose: 500 mg Montelukast Sodium (Singulair) 10 mg PO HS [facility] Last Admin: 05/24/18 21:09 Dose: 10 mg Multivitamins/Minerals (Therapeutic-M Tab) 1 tab PO DAILY [facility] Last Admin: 05/25/18 08:24 Dose: 1 tab Nystatin (Nystop Topical Powder) 1 applic TOP TID [facility] Last Admin: 05/25/18 10:51 Dose: 1 applic Pantoprazole Sodium (Protonix Ec Tab) 20 mg PO BID [facility] Last Admin: 05/25/18 08:22 Dose: 20 mg Paroxetine HCl (Paxil) 20 mg PO DAILY [facility] Last Admin: 05/25/18 08:26 Dose: 20 mg Simethicone (Mylicon Chew Tab) 80 mg PO Q8 PRN PRN Reason: Flatulence - Labs Labs: 05/25/18 06:00 05/25/18 06:00 - Constitutional Appears: No Acute Distress - Eye Exam Eye Exam: Conjunctival injection - ENT Exam ENT Exam: Mucous Membranes Dry - Neck Exam Neck Exam: absent: Lymphadenopathy - Respiratory Exam Respiratory Exam: absent: Chest Wall Tenderness - Cardiovascular Exam Cardiovascular Exam: absent: Gallop, Rubs - GI/Abdominal Exam GI & Abdominal Exam: Soft, Normal Bowel Sounds - Extremities Exam Extremities Exam: absent: Calf Tenderness - Back Exam Back Exam: absent: CVA tenderness (L), CVA tenderness (R) - Neurological Exam Neurological Exam: Alert - Psychiatric Exam Psychiatric exam: Normal Affect - Skin Skin Exam: absent: Cyanosis Assessment and Plan (1) Hyponatremia Assessment & Plan: hyponatremia Hypochloremia Pneumonia copd Fall, DM, HTN, hyperlipidemia, anemia the plan Because worsening of hyponatremia and worsening of hypochloremia therefore I suggest to hold Lasix for additional ouple days and we will give gently normal saline 50 mL/h for the next 24 hours and monitor. Status: Acute
--- NOTE | 2018-05-25 20:12 | CP.PCM.PN ---
Subjective - Date & Time of Evaluation Date of Evaluation: 05/25/18 Time of Evaluation: 22:22 - Subjective Subjective: Doing well Objective - Vital Signs/Intake and Output Vital Signs (last 24 hours): Temp Pulse Resp BP Pulse Ox 96.6 F L 68 16 124/53 L 99 05/25/18 16:02 05/25/18 16:02 05/25/18 16:02 05/25/18 16:02 05/25/18 16:02 - Medications Medications: Current Medications Acetaminophen (Tylenol 325mg Tab) 650 mg PO Q4 PRN PRN Reason: Pain, Mild (1-3) Albuterol Sulfate (Albuterol 0.083% Inhal Autumn (2.5 Mg/3 Ml) Ud) 2.5 mg INH RQID [facility] Last Admin: 05/25/18 19:11 Dose: 2.5 mg Alendronate Sodium (Fosamax) 70 mg PO Fr@0600 [facility] Last Admin: 05/22/18 07:24 Dose: 70 mg Amlodipine Besylate (Norvasc) 10 mg PO DAILY [facility] Last Admin: 05/25/18 08:22 Dose: 10 mg Aspirin (Aspirin Chewable) 81 mg PO DAILY [facility] Last Admin: 05/25/18 08:23 Dose: 81 mg Atorvastatin Calcium (Lipitor) 10 mg PO HS [facility] Last Admin: 05/24/18 21:08 Dose: 10 mg Azithromycin (Zithromax) 250 mg PO DAILY [facility]; Protocol Stop: 05/26/18 09:01 Last Admin: 05/25/18 08:24 Dose: 250 mg Carvedilol (Coreg) 3.125 mg PO Q12@0900,2100 [facility] Last Admin: 05/25/18 08:23 Dose: 3.125 mg Cefdinir (Omnicef) 300 mg PO BID [facility] Last Admin: 05/25/18 16:32 Dose: 300 mg Collagenase (Santyl) 1 applic TOP DAILY [facility] Last Admin: 05/25/18 08:24 Dose: Not Given Docusate Sodium (Colace) 100 mg PO BID [facility] Last Admin: 05/25/18 16:32 Dose: 100 mg Enalapril Maleate (Vasotec) 20 mg PO DAILY [facility] Last Admin: 05/25/18 08:24 Dose: 20 mg Enoxaparin Sodium (Lovenox) 40 mg SC DAILY [facility]; Protocol Last Admin: 05/25/18 08:21 Dose: 40 mg Ferrous Sulfate (Feosol) 325 mg PO TID [facility] Last Admin: 05/25/18 16:32 Dose: 325 mg Furosemide (Lasix) 20 mg PO DAILY [facility] Last Admin: 05/25/18 08:32 Dose: 20 mg Guaifenesin (Mucinex La) 600 mg PO Q12 [facility] Last Admin: 05/25/18 08:21 Dose: 600 mg Hydrocortisone (Hydrocortisone 2.5%) 1 applic TOP BID [facility] Last Admin: 05/25/18 16:31 Dose: 1 applic Sodium Chloride (Sodium Chloride 0.9%) 1,000 mls @ 30 mls/hr IV .Q24H [facility] Stop: 05/26/18 10:29 Last Admin: 05/25/18 10:52 Dose: 30 mls/hr Ipratropium [place] (Atrovent) 0.5 mg IH RQID [facility] Last Admin: 05/25/18 19:11 Dose: 0.5 mg Levalbuterol HCl (Xopenex) 0.63 mg INH RQ8 PRN PRN Reason: Wheezing Last Admin: 05/21/18 00:30 Dose: 0.63 mg Lorazepam (Ativan) 0.5 mg PO DAILY PRN PRN Reason: Anxiety Last Admin: 05/23/18 21:11 Dose: 0.5 mg Metformin HCl (Glucophage) 500 mg PO BID [facility] Last Admin: 05/25/18 16:32 Dose: 500 mg Montelukast Sodium (Singulair) 10 mg PO HS [facility] Last Admin: 05/24/18 21:09 Dose: 10 mg Multivitamins/Minerals (Therapeutic-M Tab) 1 tab PO DAILY [facility] Last Admin: 05/25/18 08:24 Dose: 1 tab Nystatin (Nystop Topical Powder) 1 applic TOP TID [facility] Last Admin: 05/25/18 16:32 Dose: 1 applic Pantoprazole Sodium (Protonix Ec Tab) 20 mg PO BID [facility] Last Admin: 05/25/18 16:32 Dose: 20 mg Paroxetine HCl (Paxil) 20 mg PO DAILY [facility] Last Admin: 05/25/18 08:26 Dose: 20 mg Simethicone (Mylicon Chew Tab) 80 mg PO Q8 PRN PRN Reason: Flatulence - Labs Labs: 05/25/18 06:00 11/19/18 06:00 - Respiratory Exam Respiratory Exam: NORMAL BREATHING PATTERN - Cardiovascular Exam Cardiovascular Exam: REGULAR RHYTHM - GI/Abdominal Exam GI & Abdominal Exam: Normal Bowel Sounds Assessment and Plan - Assessment and Plan (Free Text) Assessment: Deconditioning Rehab S/P Acute ant wall KS + CE CT scan CHF O2 JAYESH B-annia Nitrates ASA Lovenox Cardiology Echo Fall etiol?? 2 to above? Telemetry Neuro cardiology COPD R pleural effusion ? 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
[2018-05-26 06:14] LABS: HEMOGLOBIN 10.9 g/dL (12.0-16.0); MEAN CELL VOLUME 98.2 fl (81.0-99.0); MEAN CORPUSCULAR HGB CONC 33.6 g/dL (33.0-37.0); RBC 3.32 Mil/uL (3.80-5.20); RED CELL DISTRIBUTION WIDTH 13.5 % (11.5-14.5); WHITE BLOOD COUNT 8.2 K/uL (4.8-10.8)
[2018-05-26 06:28] LABS: ALB/GLOB RATIO 1.4 (1.0-2.1); ALBUMIN 3.6 g/dL (3.5-5.0); ALT/SGPT 36 U/L (9-52); AST/SGOT 36 U/L (14-36); BLOOD UREA NITROGEN 11 mg/dl (7-17); CALCIUM 8.4 mg/dL (8.4-10.2); GFR NON-AFRICAN AMERICAN > 60
[2018-05-26] MEDS: Ipratropium 0.02% Inhal Soln (0.5 mg/2.5 ml) UD IH SCH ×4 (07:30→19:29)
[2018-05-26] MEDS: Albuterol 0.083% Inhal Sol (2.5 mg/3 mL) UD INH SCH ×4 (07:30→19:29)
[2018-05-26] MEDS ORDERED: Anusol Suppository PR PRN (08:13)
[2018-05-26] MEDS: Enoxaparin 40 mg Syringe SC SCH (08:30)
[2018-05-26] MEDS: guaiFENesin 600 mg ER Tab PO SCH ×2 (08:31→22:05)
[2018-05-26] MEDS: Pantoprazole 20 mg EC Tab PO SCH ×2 (08:33→16:41)
[2018-05-26] MEDS: Anusol Suppository PR PRN (08:33)
[2018-05-26] MEDS: Cefdinir 300 MG CAP PO SCH ×2 (08:34→16:41)
[2018-05-26] MEDS: Multivitamin With Minerals Tab PO SCH (08:34)
[2018-05-26] MEDS: Santyl Collagenase OINTMENT TOP SCH (09:00)
[2018-05-26] MEDS ORDERED: Chlorhexidine Gluconate 1 APPL/PKT TP ONE (09:32)
--- NOTE | 2018-05-26 12:33 | CP.PCM.PN ---
Subjective - Date & Time of Evaluation Date of Evaluation: 05/26/18 Time of Evaluation: 12:31 - Subjective Subjective: Podiatry progress note for Dr. You 88 yo female seen at bedside for right ankle wound. Resting comfortably. Denies acute overnight events. Denies pain to the lower extremity. Denies N/V/F/C/SOB/CP today. Objective - Vital Signs/Intake and Output Vital Signs (last 24 hours): Temp Pulse Resp BP Pulse Ox 98.0 F 72 18 169/85 H 99 05/26/18 08:10 05/26/18 08:35 05/26/18 08:10 05/26/18 08:35 05/26/18 08:10 - Medications Medications: Current Medications Acetaminophen (Tylenol 325mg Tab) 650 mg PO Q4 PRN PRN Reason: Pain, Mild (1-3) Albuterol Sulfate (Albuterol 0.083% Inhal Autumn (2.5 Mg/3 Ml) Ud) 2.5 mg INH RQID [facility] Last Admin: 05/26/18 11:09 Dose: Not Given Alendronate Sodium (Fosamax) 70 mg PO Fr@0600 [facility] Last Admin: 05/22/18 07:24 Dose: 70 mg Amlodipine Besylate (Norvasc) 10 mg PO DAILY [facility] Last Admin: 05/26/18 08:35 Dose: 10 mg Aspirin (Aspirin Chewable) 81 mg PO DAILY [facility] Last Admin: 05/26/18 08:33 Dose: 81 mg Atorvastatin Calcium (Lipitor) 10 mg PO HS [facility] Last Admin: 05/25/18 21:25 Dose: 10 mg Carvedilol (Coreg) 3.125 mg PO Q12@0900,2100 [facility] Last Admin: 05/26/18 08:35 Dose: 3.125 mg Cefdinir (Omnicef) 300 mg PO BID [facility] Last Admin: 05/26/18 08:34 Dose: 300 mg Collagenase (Santyl) 1 applic TOP DAILY [facility] Last Admin: 05/26/18 09:00 Dose: Not Given Docusate Sodium (Colace) 100 mg PO BID [facility] Last Admin: 05/26/18 08:33 Dose: Not Given Enalapril Maleate (Vasotec) 20 mg PO DAILY [facility] Last Admin: 05/26/18 08:34 Dose: 20 mg Enoxaparin Sodium (Lovenox) 40 mg SC DAILY [facility]; Protocol Last Admin: 05/26/18 08:30 Dose: 40 mg Ferrous Sulfate (Feosol) 325 mg PO TID [facility] Last Admin: 05/26/18 12:30 Dose: 325 mg Furosemide (Lasix) 20 mg PO DAILY [facility] Last Admin: 05/25/18 08:32 Dose: 20 mg Guaifenesin (Mucinex La) 600 mg PO Q12 [facility] Last Admin: 05/26/18 08:31 Dose: 600 mg Hydrocortisone (Hydrocortisone 2.5%) 1 applic TOP BID [facility] Last Admin: 05/26/18 08:36 Dose: 1 applic Ipratropium [place] (Atrovent) 0.5 mg IH RQID [facility] Last Admin: 05/26/18 11:09 Dose: Not Given Levalbuterol HCl (Xopenex) 0.63 mg INH RQ8 PRN PRN Reason: Wheezing Last Admin: 05/21/18 00:30 Dose: 0.63 mg Lorazepam (Ativan) 0.5 mg PO DAILY PRN PRN Reason: Anxiety Last Admin: 05/25/18 21:25 Dose: 0.5 mg Metformin HCl (Glucophage) 500 mg PO BID [facility] Last Admin: 05/26/18 08:34 Dose: 500 mg Montelukast Sodium (Singulair) 10 mg PO HS [facility] Last Admin: 05/25/18 21:25 Dose: 10 mg Multivitamins/Minerals (Therapeutic-M Tab) 1 tab PO DAILY [facility] Last Admin: 05/26/18 08:34 Dose: 1 tab Nystatin (Nystop Topical Powder) 1 applic TOP TID [facility] Last Admin: 05/26/18 08:36 Dose: 1 applic Pantoprazole Sodium (Protonix Ec Tab) 20 mg PO BID [facility] Last Admin: 05/26/18 08:33 Dose: 20 mg Paroxetine HCl (Paxil) 20 mg PO DAILY [facility] Last Admin: 05/26/18 08:34 Dose: 20 mg Simethicone (Mylicon Chew Tab) 80 mg PO Q8 PRN PRN Reason: Flatulence - Labs Labs: 05/26/18 05:30 05/26/18 05:30 - Constitutional Appears: Well, Non-toxic, No Acute Distress - Head Exam Head Exam: ATRAUMATIC, NORMOCEPHALIC - Extremities Exam Additional comments: Right lower extremity exam: vascular: dp/pt pulses palpable, CFT <3 secs x 5, Tg warm to cool, periwound erythema noted, no erythema otherwise, no edema noted neuro: unable to obtain derm: right medial malleolus wound with fibrogranular base noted measuring approimately 1cm x 0.4cm, periwound erythema, no drainage appreciated, no malodor, no clinical signs of infection ortho: minimal pain on palpation to the wound - Neurological Exam Neurological Exam: Alert, Awake, Oriented x3 - Psychiatric Exam Psychiatric exam: Normal Affect, Normal Mood Assessment and Plan - Assessment and Plan (Free Text) Assessment: 88F with stable right ankle pressure wound Plan: Patient seen and evaluated Chart, labs and vitals reviewed Wound cleansed with normal saline, dressed with Santyl and DSD Podiatry will continue to follow the patient while in house Patient will follow up with Dr. You upon discharge
[2018-05-26] MEDS ORDERED: Tolvaptan 15 MG TAB PO ONE (14:13)
--- NOTE | 2018-05-26 14:19 | CP.PCM.PN ---
Subjective - Date & Time of Evaluation Date of Evaluation: 05/26/18 Time of Evaluation: 14:19 - Subjective Subjective: patient sitting up in the chair awake and conscious Vital signs stable No chest pain reported Objective - Vital Signs/Intake and Output Vital Signs (last 24 hours): Temp Pulse Resp BP Pulse Ox 98.0 F 72 18 169/85 H 99 05/26/18 08:10 05/26/18 08:35 05/26/18 08:10 05/26/18 08:35 05/26/18 08:10 - Medications Medications: Current Medications Acetaminophen (Tylenol 325mg Tab) 650 mg PO Q4 PRN PRN Reason: Pain, Mild (1-3) Albuterol Sulfate (Albuterol 0.083% Inhal [place] (2.5 Mg/3 Ml) Ud) 2.5 mg INH RQID [facility] Last Admin: 05/26/18 11:09 Dose: Not Given Alendronate Sodium (Fosamax) 70 mg PO Fr@0600 [facility] Last Admin: 05/22/18 07:24 Dose: 70 mg Amlodipine Besylate (Norvasc) 10 mg PO DAILY [facility] Last Admin: 05/26/18 08:35 Dose: 10 mg Aspirin (Aspirin Chewable) 81 mg PO DAILY [facility] Last Admin: 05/26/18 08:33 Dose: 81 mg Atorvastatin Calcium (Lipitor) 10 mg PO HS [facility] Last Admin: 05/25/18 21:25 Dose: 10 mg Carvedilol (Coreg) 3.125 mg PO Q12@0900,2100 [facility] Last Admin: 05/26/18 08:35 Dose: 3.125 mg Cefdinir (Omnicef) 300 mg PO BID [facility] Last Admin: 05/26/18 08:34 Dose: 300 mg Collagenase (Santyl) 1 applic TOP DAILY [facility] Last Admin: 05/26/18 09:00 Dose: Not Given Docusate Sodium (Colace) 100 mg PO BID [facility] Last Admin: 05/26/18 08:33 Dose: Not Given Enalapril Maleate (Vasotec) 20 mg PO DAILY [facility] Last Admin: 05/26/18 08:34 Dose: 20 mg Enoxaparin Sodium (Lovenox) 40 mg SC DAILY [facility]; Protocol Last Admin: 05/26/18 08:30 Dose: 40 mg Ferrous Sulfate (Feosol) 325 mg PO TID [facility] Last Admin: 05/26/18 12:30 Dose: 325 mg Furosemide (Lasix) 20 mg PO DAILY [facility] Last Admin: 05/25/18 08:32 Dose: 20 mg Guaifenesin (Mucinex La) 600 mg PO Q12 [facility] Last Admin: 05/26/18 08:31 Dose: 600 mg Hydrocortisone (Hydrocortisone 2.5%) 1 applic TOP BID [facility] Last Admin: 05/26/18 08:36 Dose: 1 applic Ipratropium [place] (Atrovent) 0.5 mg IH RQID [facility] Last Admin: 05/26/18 11:09 Dose: Not Given Levalbuterol HCl (Xopenex) 0.63 mg INH RQ8 PRN PRN Reason: Wheezing Last Admin: 05/21/18 00:30 Dose: 0.63 mg Lorazepam (Ativan) 0.5 mg PO DAILY PRN PRN Reason: Anxiety Last Admin: 05/25/18 21:25 Dose: 0.5 mg Metformin HCl (Glucophage) 500 mg PO BID [facility] Last Admin: 05/26/18 08:34 Dose: 500 mg Montelukast Sodium (Singulair) 10 mg PO HS [facility] Last Admin: 05/25/18 21:25 Dose: 10 mg Multivitamins/Minerals (Therapeutic-M Tab) 1 tab PO DAILY [facility] Last Admin: 05/26/18 08:34 Dose: 1 tab Nystatin (Nystop Topical Powder) 1 applic TOP TID [facility] Last Admin: 05/26/18 08:36 Dose: 1 applic Pantoprazole Sodium (Protonix Ec Tab) 20 mg PO BID [facility] Last Admin: 05/26/18 08:33 Dose: 20 mg Paroxetine HCl (Paxil) 20 mg PO DAILY [facility] Last Admin: 05/26/18 08:34 Dose: 20 mg Simethicone (Mylicon Chew Tab) 80 mg PO Q8 PRN PRN Reason: Flatulence - Labs Labs: 05/26/18 05:30 05/26/18 05:30 - Constitutional Appears: No Acute Distress - Eye Exam Eye Exam: Conjunctival injection - ENT Exam ENT Exam: Mucous Membranes Moist - Neck Exam Neck Exam: absent: Lymphadenopathy - Respiratory Exam Respiratory Exam: NORMAL BREATHING PATTERN. absent: Chest Wall Tenderness - Cardiovascular Exam Cardiovascular Exam: absent: Gallop, JVD, Rubs - GI/Abdominal Exam GI & Abdominal Exam: Soft, Normal Bowel Sounds - Extremities Exam Extremities Exam: absent: Calf Tenderness - Back Exam Back Exam: absent: CVA tenderness (L), CVA tenderness (R) - Neurological Exam Neurological Exam: Alert - Psychiatric Exam Psychiatric exam: Normal Affect - Skin Skin Exam: absent: Cyanosis Assessment and Plan (1) Hyponatremia Assessment & Plan: hyponatremia Hypochloremia Pneumonia copd Fall, DM, HTN, hyperlipidemia, anemia CAD the plan Because of the worsening of hyponatremia serum sodium keep coming down 125 We will give Samsca and now 15 mg and DC IV fluid Monitor serum sodium not to rise more than about 8-9 mEq in the next 24 hours. Status: Acute
[2018-05-26 16:28] LABS: OSMOLALITY,URINE 159 mosm/kg (300-1000)
--- NOTE | 2018-05-26 20:51 | CP.PCM.PN ---
Subjective - Date & Time of Evaluation Date of Evaluation: 05/26/18 Time of Evaluation: 22:22 - Subjective Subjective: Na+ 125 Objective - Vital Signs/Intake and Output Vital Signs (last 24 hours): Temp Pulse Resp BP Pulse Ox 97.0 F L 69 20 143/64 100 05/26/18 16:19 05/26/18 16:19 05/26/18 16:19 05/26/18 16:19 05/26/18 16:19 - Medications Medications: Current Medications Acetaminophen (Tylenol 325mg Tab) 650 mg PO Q4 PRN PRN Reason: Pain, Mild (1-3) Albuterol Sulfate (Albuterol 0.083% Inhal Autumn (2.5 Mg/3 Ml) Ud) 2.5 mg INH RQID [facility] Last Admin: 05/26/18 19:29 Dose: 2.5 mg Alendronate Sodium (Fosamax) 70 mg PO Fr@0600 [facility] Last Admin: 05/22/18 07:24 Dose: 70 mg Amlodipine Besylate (Norvasc) 10 mg PO DAILY [facility] Last Admin: 05/26/18 08:35 Dose: 10 mg Aspirin (Aspirin Chewable) 81 mg PO DAILY [facility] Last Admin: 05/26/18 08:33 Dose: 81 mg Atorvastatin Calcium (Lipitor) 10 mg PO HS [facility] Last Admin: 05/25/18 21:25 Dose: 10 mg Carvedilol (Coreg) 3.125 mg PO Q12@0900,2100 [facility] Last Admin: 05/26/18 08:35 Dose: 3.125 mg Cefdinir (Omnicef) 300 mg PO BID [facility] Last Admin: 05/26/18 16:41 Dose: 300 mg Collagenase (Santyl) 1 applic TOP DAILY [facility] Last Admin: 05/26/18 09:00 Dose: Not Given Docusate Sodium (Colace) 100 mg PO BID [facility] Last Admin: 05/26/18 16:37 Dose: 100 mg Enalapril Maleate (Vasotec) 20 mg PO DAILY [facility] Last Admin: 05/26/18 08:34 Dose: 20 mg Enoxaparin Sodium (Lovenox) 40 mg SC DAILY [facility]; Protocol Last Admin: 05/26/18 08:30 Dose: 40 mg Ferrous Sulfate (Feosol) 325 mg PO TID [facility] Last Admin: 05/26/18 16:37 Dose: 325 mg Fluticasone Propionate (Flonase) 1 spr LUIS Q12 [facility] Furosemide (Lasix) 20 mg PO DAILY [facility] Last Admin: 05/25/18 08:32 Dose: 20 mg Guaifenesin (Mucinex La) 600 mg PO Q12 [facility] Last Admin: 05/26/18 08:31 Dose: 600 mg Hydrocortisone (Hydrocortisone 2.5%) 1 applic TOP BID [facility] Last Admin: 05/26/18 16:40 Dose: 1 applic Ipratropium [place] (Atrovent) 0.5 mg IH RQID [facility] Last Admin: 05/26/18 19:29 Dose: 0.5 mg Levalbuterol HCl (Xopenex) 0.63 mg INH RQ8 PRN PRN Reason: Wheezing Last Admin: 05/21/18 00:30 Dose: 0.63 mg Lorazepam (Ativan) 0.5 mg PO DAILY PRN PRN Reason: Anxiety Last Admin: 05/25/18 21:25 Dose: 0.5 mg Metformin HCl (Glucophage) 500 mg PO BID [facility] Last Admin: 05/26/18 16:40 Dose: 500 mg Montelukast Sodium (Singulair) 10 mg PO HS [facility] Last Admin: 05/25/18 21:25 Dose: 10 mg Multivitamins/Minerals (Therapeutic-M Tab) 1 tab PO DAILY [facility] Last Admin: 05/26/18 08:34 Dose: 1 tab Nystatin (Nystop Topical Powder) 1 applic TOP TID [facility] Last Admin: 05/26/18 16:41 Dose: 1 applic Pantoprazole Sodium (Protonix Ec Tab) 20 mg PO BID [facility] Last Admin: 05/26/18 16:41 Dose: 20 mg Paroxetine HCl (Paxil) 20 mg PO DAILY [facility] Last Admin: 05/26/18 08:34 Dose: 20 mg Simethicone (Mylicon Chew Tab) 80 mg PO Q8 PRN PRN Reason: Flatulence - Labs Labs: 05/26/18 05:30 05/26/18 05:30 - Respiratory Exam Respiratory Exam: NORMAL BREATHING PATTERN - Cardiovascular Exam Cardiovascular Exam: REGULAR RHYTHM - GI/Abdominal Exam GI & Abdominal Exam: Normal Bowel Sounds Assessment and Plan - Assessment and Plan (Free Text) Assessment: Deconditioning Rehab 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 Nephrology d/c IVF Samsca S/P Acute ant wall ID + CE CT scan CHF O2 JAYESH B-annia Nitrates ASA Lovenox Cardiology Echo Fall etiol?? 2 to above? Telemetry Neuro cardiology COPD R pleural effusion ? infiltrate Prov Atrovent Pulmonary Hx rectal prolapse Hx of chronic anxiety Ativan
[2018-05-27] MEDS: Ipratropium 0.02% Inhal Soln (0.5 mg/2.5 ml) UD IH SCH ×4 (07:46→19:40)
[2018-05-27] MEDS: Albuterol 0.083% Inhal Sol (2.5 mg/3 mL) UD INH SCH ×4 (07:46→19:40)
[2018-05-27 08:26] LABS: BLOOD UREA NITROGEN 12 mg/dl (7-17); CALCIUM 9.3 mg/dL (8.4-10.2); GFR NON-AFRICAN AMERICAN > 60
[2018-05-27] MEDS: Enoxaparin 40 mg Syringe SC SCH (08:42)
[2018-05-27] MEDS: guaiFENesin 600 mg ER Tab PO SCH ×2 (08:42→21:23)
[2018-05-27] MEDS: Cefdinir 300 MG CAP PO SCH (08:45)
[2018-05-27] MEDS: Pantoprazole 20 mg EC Tab PO SCH ×2 (08:45→17:52)
[2018-05-27] MEDS: Santyl Collagenase OINTMENT TOP SCH (08:46)
[2018-05-27] MEDS: Multivitamin With Minerals Tab PO SCH (08:46)
--- NOTE | 2018-05-27 10:53 | CP.PCM.PN ---
Subjective - Date & Time of Evaluation Date of Evaluation: 05/27/18 Time of Evaluation: 10:30 - Subjective Subjective: NO CHEST PAIN BREATHING COMFORTABLY Objective - Vital Signs/Intake and Output Vital Signs (last 24 hours): Temp Pulse Resp BP Pulse Ox 97.7 F 76 20 173/69 H 99 05/27/18 08:50 05/27/18 08:50 05/27/18 08:50 05/27/18 08:50 05/27/18 08:50 - Medications Medications: Current Medications Acetaminophen (Tylenol 325mg Tab) 650 mg PO Q4 PRN PRN Reason: Pain, Mild (1-3) Albuterol Sulfate (Albuterol 0.083% Inhal [place]umn (2.5 Mg/3 Ml) Ud) 2.5 mg INH RQID [facility] Last Admin: 05/27/18 07:46 Dose: 2.5 mg Alendronate Sodium (Fosamax) 70 mg PO Fr@0600 [facility] Last Admin: 05/22/18 07:24 Dose: 70 mg Amlodipine Besylate (Norvasc) 10 mg PO DAILY [facility] Last Admin: 05/27/18 08:43 Dose: 10 mg Aspirin (Aspirin Chewable) 81 mg PO DAILY [facility] Last Admin: 05/27/18 08:39 Dose: 81 mg Atorvastatin Calcium (Lipitor) 10 mg PO HS [facility] Last Admin: 05/26/18 22:05 Dose: 10 mg Carvedilol (Coreg) 3.125 mg PO Q12@0900,2100 [facility] Last Admin: 05/27/18 08:40 Dose: 3.125 mg Collagenase (Santyl) 1 applic TOP DAILY [facility] Last Admin: 05/27/18 08:46 Dose: Not Given Docusate Sodium (Colace) 100 mg PO BID [facility] Last Admin: 05/27/18 08:40 Dose: 100 mg Enalapril Maleate (Vasotec) 20 mg PO DAILY [facility] Last Admin: 05/27/18 08:46 Dose: 20 mg Enoxaparin Sodium (Lovenox) 40 mg SC DAILY [facility]; Protocol Last Admin: 05/27/18 08:42 Dose: 40 mg Ferrous Sulfate (Feosol) 325 mg PO TID [facility] Last Admin: 05/27/18 08:41 Dose: 325 mg Fluticasone Propionate (Flonase) 1 spr LUIS Q12 [facility] Last Admin: 05/27/18 08:41 Dose: 1 spr Furosemide (Lasix) 20 mg PO DAILY [facility] Last Admin: 05/25/18 08:32 Dose: 20 mg Guaifenesin (Mucinex La) 600 mg PO Q12 [facility] Last Admin: 05/27/18 08:42 Dose: 600 mg Hydrocortisone (Hydrocortisone 2.5%) 1 applic TOP BID [facility] Last Admin: 05/27/18 08:41 Dose: 1 applic Ipratropium [place] (Atrovent) 0.5 mg IH RQID [facility] Last Admin: 05/27/18 07:46 Dose: 0.5 mg Levalbuterol HCl (Xopenex) 0.63 mg INH RQ8 PRN PRN Reason: Wheezing Last Admin: 05/21/18 00:30 Dose: 0.63 mg Lorazepam (Ativan) 0.5 mg PO DAILY PRN PRN Reason: Anxiety Last Admin: 05/25/18 21:25 Dose: 0.5 mg Metformin HCl (Glucophage) 500 mg PO BID [facility] Last Admin: 05/27/18 08:41 Dose: 500 mg Montelukast Sodium (Singulair) 10 mg PO HS [facility] Last Admin: 05/26/18 22:09 Dose: 10 mg Multivitamins/Minerals (Therapeutic-M Tab) 1 tab PO DAILY [facility] Last Admin: 05/27/18 08:46 Dose: 1 tab Nystatin (Nystop Topical Powder) 1 applic TOP TID [facility] Last Admin: 05/27/18 08:44 Dose: 1 applic Pantoprazole Sodium (Protonix Ec Tab) 20 mg PO BID [facility] Last Admin: 05/27/18 08:45 Dose: 20 mg Paroxetine HCl (Paxil) 20 mg PO DAILY [facility] Last Admin: 05/27/18 08:45 Dose: 20 mg Simethicone (Mylicon Chew Tab) 80 mg PO Q8 PRN PRN Reason: Flatulence - Labs Labs: 05/26/18 05:30 05/27/18 08:12 - Respiratory Exam Respiratory Exam: Clear to Ausculation Bilateral - Cardiovascular Exam Cardiovascular Exam: REGULAR RHYTHM, +S1, +S2 - Extremities Exam Additional comments: NO SIGNIFICANT LE EDEMA - Additional Findings Additional findings: CXR OF 05/21/18 REVIEWED Assessment and Plan - Assessment and Plan (Free Text) Assessment: CAD WITH RECENT AWMI-STABLE AND CHEST PAIN FREE HYPERTENSION PNEUMONIA-TREATED AND IMPROVED TYPE 2 DM Plan: CONTINUE CARVEDILOL, ENALAPRIL, AMLODIPINE, ASPIRIN, LOVENOX, ATORVASTATIN, FUROSEMIDE, COPD MEDS AND GLUCOPHAGE
--- NOTE | 2018-05-27 12:18 | CP.PCM.PN ---
Subjective - Date & Time of Evaluation Date of Evaluation: 05/27/18 Time of Evaluation: 12:14 - Subjective Subjective: Seated in bwheelchair in room. Awake, cooperative, no complaints of SOB or cough. Complains of discomfort in her throat which has been present since admission. SpO2 99% at rest seated with nasal canula in her nose, but no O2 flow. Pharynx is pink and moist w/o exudayte. Neck is supple and trachea midline. Beath sounds are present bilaterally with occasional rhonchi and dry rales. No audible wheezing or bronchial breath sounds. Antibiotic has completed course/discontinued. From a respiratory perspective she is stable for d/c to longer term [facility]VA. Continue DuoNeb QID. Objective - Vital Signs/Intake and Output Vital Signs (last 24 hours): Temp Pulse Resp BP Pulse Ox 97.7 F 76 20 173/69 H 99 05/27/18 08:50 05/27/18 08:50 05/27/18 08:50 05/27/18 08:50 05/27/18 08:50 - Medications Medications: Current Medications Acetaminophen (Tylenol 325mg Tab) 650 mg PO Q4 PRN PRN Reason: Pain, Mild (1-3) Albuterol Sulfate (Albuterol 0.083% Inhal [place]umn (2.5 Mg/3 Ml) Ud) 2.5 mg INH RQID [facility] Last Admin: 05/27/18 11:17 Dose: 2.5 mg Alendronate Sodium (Fosamax) 70 mg PO Fr@0600 [facility] Last Admin: 05/22/18 07:24 Dose: 70 mg Amlodipine Besylate (Norvasc) 10 mg PO DAILY [facility] Last Admin: 05/27/18 08:43 Dose: 10 mg Aspirin (Aspirin Chewable) 81 mg PO DAILY [facility] Last Admin: 05/27/18 08:39 Dose: 81 mg Atorvastatin Calcium (Lipitor) 10 mg PO HS [facility] Last Admin: 05/26/18 22:05 Dose: 10 mg Carvedilol (Coreg) 3.125 mg PO Q12@0900,2100 [facility] Last Admin: 05/27/18 08:40 Dose: 3.125 mg Collagenase (Santyl) 1 applic TOP DAILY [facility] Last Admin: 05/27/18 08:46 Dose: Not Given Docusate Sodium (Colace) 100 mg PO BID [facility] Last Admin: 05/27/18 08:40 Dose: 100 mg Enalapril Maleate (Vasotec) 20 mg PO DAILY [facility] Last Admin: 05/27/18 08:46 Dose: 20 mg Enoxaparin Sodium (Lovenox) 40 mg SC DAILY [facility]; Protocol Last Admin: 05/27/18 08:42 Dose: 40 mg Ferrous Sulfate (Feosol) 325 mg PO TID [facility] Last Admin: 05/27/18 08:41 Dose: 325 mg Fluticasone Propionate (Flonase) 1 spr LUIS Q12 [facility] Last Admin: 05/27/18 08:41 Dose: 1 spr Furosemide (Lasix) 20 mg PO DAILY [facility] Last Admin: 05/25/18 08:32 Dose: 20 mg Guaifenesin (Mucinex La) 600 mg PO Q12 [facility] Last Admin: 05/27/18 08:42 Dose: 600 mg Hydrocortisone (Hydrocortisone 2.5%) 1 applic TOP BID [facility] Last Admin: 05/27/18 08:41 Dose: 1 applic Ipratropium [place] (Atrovent) 0.5 mg IH RQID [facility] Last Admin: 05/27/18 11:17 Dose: 0.5 mg Levalbuterol HCl (Xopenex) 0.63 mg INH RQ8 PRN PRN Reason: Wheezing Last Admin: 05/21/18 00:30 Dose: 0.63 mg Lorazepam (Ativan) 0.5 mg PO DAILY PRN PRN Reason: Anxiety Last Admin: 05/25/18 21:25 Dose: 0.5 mg Metformin HCl (Glucophage) 500 mg PO BID [facility] Last Admin: 05/27/18 08:41 Dose: 500 mg Montelukast Sodium (Singulair) 10 mg PO HS [facility] Last Admin: 05/26/18 22:09 Dose: 10 mg Multivitamins/Minerals (Therapeutic-M Tab) 1 tab PO DAILY [facility] Last Admin: 05/27/18 08:46 Dose: 1 tab Nystatin (Nystop Topical Powder) 1 applic TOP TID [facility] Last Admin: 05/27/18 08:44 Dose: 1 applic Pantoprazole Sodium (Protonix Ec Tab) 20 mg PO BID [facility] Last Admin: 05/27/18 08:45 Dose: 20 mg Paroxetine HCl (Paxil) 20 mg PO DAILY [facility] Last Admin: 11/21/18 08:45 Dose: 20 mg Simethicone (Mylicon Chew Tab) 80 mg PO Q8 PRN PRN Reason: Flatulence - Labs Labs: 05/26/18 05:30 05/27/18 08:12 Assessment and Plan (1) Pneumonia Status: Acute (2) Bronchial asthma Status: Chronic (3) Pleural effusion Status: Acute
--- NOTE | 2018-05-27 13:53 | CP.PCM.PN ---
Subjective - Date & Time of Evaluation Date of Evaluation: 05/27/18 Time of Evaluation: 13:52 - Subjective Subjective: Podiatry progress note for Dr. You 88F seen at bedside for right ankle wound. Resting comfortably. Denies acute overnight events. Denies pain to the lower extremity. Denies N/V/F/C/SOB/CP today. Objective - Vital Signs/Intake and Output Vital Signs (last 24 hours): Temp Pulse Resp BP Pulse Ox 97.7 F 76 20 173/69 H 99 05/27/18 08:50 05/27/18 08:50 05/27/18 08:50 05/27/18 08:50 05/27/18 08:50 - Medications Medications: Current Medications Acetaminophen (Tylenol 325mg Tab) 650 mg PO Q4 PRN PRN Reason: Pain, Mild (1-3) Albuterol Sulfate (Albuterol 0.083% Inhal Autumn (2.5 Mg/3 Ml) Ud) 2.5 mg INH RQID [facility] Last Admin: 05/27/18 11:17 Dose: 2.5 mg Alendronate Sodium (Fosamax) 70 mg PO Fr@0600 [facility] Last Admin: 05/22/18 07:24 Dose: 70 mg Amlodipine Besylate (Norvasc) 10 mg PO DAILY [facility] Last Admin: 05/27/18 08:43 Dose: 10 mg Aspirin (Aspirin Chewable) 81 mg PO DAILY [facility] Last Admin: 05/27/18 08:39 Dose: 81 mg Atorvastatin Calcium (Lipitor) 10 mg PO HS [facility] Last Admin: 05/26/18 22:05 Dose: 10 mg Carvedilol (Coreg) 3.125 mg PO Q12@0900,2100 [facility] Last Admin: 05/27/18 08:40 Dose: 3.125 mg Collagenase (Santyl) 1 applic TOP DAILY [facility] Last Admin: 05/27/18 08:46 Dose: Not Given Docusate Sodium (Colace) 100 mg PO BID [facility] Last Admin: 05/27/18 08:40 Dose: 100 mg Enalapril Maleate (Vasotec) 20 mg PO DAILY [facility] Last Admin: 05/27/18 08:46 Dose: 20 mg Enoxaparin Sodium (Lovenox) 40 mg SC DAILY [facility]; Protocol Last Admin: 05/27/18 08:42 Dose: 40 mg Ferrous Sulfate (Feosol) 325 mg PO TID [facility] Last Admin: 05/27/18 08:41 Dose: 325 mg Fluticasone Propionate (Flonase) 1 spr LUIS Q12 [facility] Last Admin: 05/27/18 08:41 Dose: 1 spr Furosemide (Lasix) 20 mg PO DAILY [facility] Last Admin: 05/25/18 08:32 Dose: 20 mg Guaifenesin (Mucinex La) 600 mg PO Q12 [facility] Last Admin: 05/27/18 08:42 Dose: 600 mg Hydrocortisone (Hydrocortisone 2.5%) 1 applic TOP BID [facility] Last Admin: 05/27/18 08:41 Dose: 1 applic Ipratropium [place] (Atrovent) 0.5 mg IH RQID [facility] Last Admin: 05/27/18 11:17 Dose: 0.5 mg Levalbuterol HCl (Xopenex) 0.63 mg INH RQ8 PRN PRN Reason: Wheezing Last Admin: 05/21/18 00:30 Dose: 0.63 mg Lorazepam (Ativan) 0.5 mg PO DAILY PRN PRN Reason: Anxiety Last Admin: 05/25/18 21:25 Dose: 0.5 mg Metformin HCl (Glucophage) 500 mg PO BID [facility] Last Admin: 05/27/18 08:41 Dose: 500 mg Montelukast Sodium (Singulair) 10 mg PO HS [facility] Last Admin: 05/26/18 22:09 Dose: 10 mg Multivitamins/Minerals (Therapeutic-M Tab) 1 tab PO DAILY [facility] Last Admin: 05/27/18 08:46 Dose: 1 tab Nystatin (Nystop Topical Powder) 1 applic TOP TID [facility] Last Admin: 05/27/18 08:44 Dose: 1 applic Pantoprazole Sodium (Protonix Ec Tab) 20 mg PO BID [facility] Last Admin: 05/27/18 08:45 Dose: 20 mg Paroxetine HCl (Paxil) 20 mg PO DAILY [facility] Last Admin: 05/27/18 08:45 Dose: 20 mg Simethicone (Mylicon Chew Tab) 80 mg PO Q8 PRN PRN Reason: Flatulence - Labs Labs: 05/26/18 05:30 05/27/18 08:12 - Constitutional Appears: Well, Non-toxic, No Acute Distress - Head Exam Head Exam: ATRAUMATIC, NORMOCEPHALIC - Extremities Exam Additional comments: Right lower extremity exam: vascular: dp/pt pulses palpable, CFT <3 secs x 5, Tg warm to cool, periwound erythema noted, no erythema otherwise, no edema noted neuro: unable to obtain derm: right medial malleolus wound with fibrogranular base noted measuring approimately 0.9cm x 0.3cm, periwound erythema, no drainage appreciated, no malodor, no clinical signs of infection ortho: minimal pain on palpation to the wound - Neurological Exam Neurological Exam: Alert, Awake, Oriented x3 - Psychiatric Exam Psychiatric exam: Normal Affect, Normal Mood Assessment and Plan - Assessment and Plan (Free Text) Assessment: 88F with stable right ankle pressure ulcer Plan: Patient seen and evaluated Chart, labs and vitals reviewed Wound cleansed with normal saline, dressed with Santyl and DSD Podiatry will continue to follow the patient while in house Patient will follow up with Dr. You upon discharge
[2018-05-27 15:19] LABS: BLOOD UREA NITROGEN 13 mg/dl (7-17); CALCIUM 9.4 mg/dL (8.4-10.2); GFR NON-AFRICAN AMERICAN > 60
--- NOTE | 2018-05-27 15:52 | CP.PCM.PN ---
Subjective - Date & Time of Evaluation Date of Evaluation: 05/27/18 Time of Evaluation: 15:50 - Subjective Subjective: Patient awake and conscious not in acute distress Vital sign noted Objective - Vital Signs/Intake and Output Vital Signs (last 24 hours): Temp Pulse Resp BP Pulse Ox 97.7 F 76 20 173/69 H 99 05/27/18 08:50 05/27/18 08:50 05/27/18 08:50 05/27/18 08:50 05/27/18 08:50 - Medications Medications: Current Medications Acetaminophen (Tylenol 325mg Tab) 650 mg PO Q4 PRN PRN Reason: Pain, Mild (1-3) Albuterol Sulfate (Albuterol 0.083% Inhal Autumn (2.5 Mg/3 Ml) Ud) 2.5 mg INH RQID [facility] Last Admin: 05/27/18 15:44 Dose: 2.5 mg Alendronate Sodium (Fosamax) 70 mg PO Fr@0600 [facility] Last Admin: 05/22/18 07:24 Dose: 70 mg Amlodipine Besylate (Norvasc) 10 mg PO DAILY [facility] Last Admin: 05/27/18 08:43 Dose: 10 mg Aspirin (Aspirin Chewable) 81 mg PO DAILY [facility] Last Admin: 05/27/18 08:39 Dose: 81 mg Atorvastatin Calcium (Lipitor) 10 mg PO HS [facility] Last Admin: 05/26/18 22:05 Dose: 10 mg Carvedilol (Coreg) 3.125 mg PO Q12@0900,2100 [facility] Last Admin: 05/27/18 08:40 Dose: 3.125 mg Collagenase (Santyl) 1 applic TOP DAILY [facility] Last Admin: 05/27/18 08:46 Dose: Not Given Docusate Sodium (Colace) 100 mg PO BID [facility] Last Admin: 05/27/18 08:40 Dose: 100 mg Enalapril Maleate (Vasotec) 20 mg PO DAILY [facility] Last Admin: 05/27/18 08:46 Dose: 20 mg Enoxaparin Sodium (Lovenox) 40 mg SC DAILY [facility]; Protocol Last Admin: 05/27/18 08:42 Dose: 40 mg Ferrous Sulfate (Feosol) 325 mg PO TID [facility] Last Admin: 05/27/18 13:14 Dose: 325 mg Fluticasone Propionate (Flonase) 1 spr LUIS Q12 [facility] Last Admin: 05/27/18 08:41 Dose: 1 spr Furosemide (Lasix) 20 mg PO DAILY [facility] Last Admin: 05/25/18 08:32 Dose: 20 mg Guaifenesin (Mucinex La) 600 mg PO Q12 [facility] Last Admin: 05/27/18 08:42 Dose: 600 mg Hydrocortisone (Hydrocortisone 2.5%) 1 applic TOP BID [facility] Last Admin: 05/27/18 08:41 Dose: 1 applic Ipratropium [place] (Atrovent) 0.5 mg IH RQID [facility] Last Admin: 05/27/18 15:44 Dose: 0.5 mg Levalbuterol HCl (Xopenex) 0.63 mg INH RQ8 PRN PRN Reason: Wheezing Last Admin: 05/21/18 00:30 Dose: 0.63 mg Lorazepam (Ativan) 0.5 mg PO DAILY PRN PRN Reason: Anxiety Last Admin: 05/25/18 21:25 Dose: 0.5 mg Metformin HCl (Glucophage) 500 mg PO BID [facility] Last Admin: 05/27/18 08:41 Dose: 500 mg Montelukast Sodium (Singulair) 10 mg PO HS [facility] Last Admin: 05/26/18 22:09 Dose: 10 mg Multivitamins/Minerals (Therapeutic-M Tab) 1 tab PO DAILY [facility] Last Admin: 05/27/18 08:46 Dose: 1 tab Nystatin (Nystop Topical Powder) 1 applic TOP TID [facility] Last Admin: 05/27/18 14:15 Dose: 1 applic Pantoprazole Sodium (Protonix Ec Tab) 20 mg PO BID [facility] Last Admin: 05/27/18 08:45 Dose: 20 mg Paroxetine HCl (Paxil) 20 mg PO DAILY [facility] Last Admin: 05/27/18 08:45 Dose: 20 mg Simethicone (Mylicon Chew Tab) 80 mg PO Q8 PRN PRN Reason: Flatulence - Labs Labs: 05/26/18 05:30 05/27/18 14:57 - Constitutional Appears: No Acute Distress - Eye Exam Eye Exam: Conjunctival injection - ENT Exam ENT Exam: Mucous Membranes Moist - Neck Exam Neck Exam: absent: Lymphadenopathy - Respiratory Exam Respiratory Exam: NORMAL BREATHING PATTERN. absent: Chest Wall Tenderness - Cardiovascular Exam Cardiovascular Exam: absent: Gallop, JVD - Extremities Exam Extremities Exam: absent: Calf Tenderness - Back Exam Back Exam: absent: CVA tenderness (L), CVA tenderness (R) - Neurological Exam Neurological Exam: Alert - Psychiatric Exam Psychiatric exam: Normal Affect Assessment and Plan (1) Hyponatremia Assessment & Plan: Assessment & Plan: hyponatremia Pneumonia copd Fall, DM, HTN, hyperlipidemia, anemia CAD the plan Serum sodium went up to 135 and repeated this afternoon just now 134 Therefore after be forced fluid this morning before going go back on fluid restriction again Patient responded to Samsca very well Status: Acute
--- NOTE | 2018-05-27 20:05 | CP.PCM.PN ---
Subjective - Date & Time of Evaluation Date of Evaluation: 05/27/18 Time of Evaluation: 22:22 - Subjective Subjective: Doing well Objective - Vital Signs/Intake and Output Vital Signs (last 24 hours): Temp Pulse Resp BP Pulse Ox 97.5 F L 70 20 143/63 100 05/27/18 16:51 05/27/18 16:51 05/27/18 16:51 05/27/18 16:51 05/27/18 16:51 - Medications Medications: Current Medications Acetaminophen (Tylenol 325mg Tab) 650 mg PO Q4 PRN PRN Reason: Pain, Mild (1-3) Albuterol Sulfate (Albuterol 0.083% Inhal Autumn (2.5 Mg/3 Ml) Ud) 2.5 mg INH RQID [facility] Last Admin: 05/27/18 19:40 Dose: 2.5 mg Alendronate Sodium (Fosamax) 70 mg PO Fr@0600 [facility] Last Admin: 05/22/18 07:24 Dose: 70 mg Amlodipine Besylate (Norvasc) 10 mg PO DAILY [facility] Last Admin: 05/27/18 08:43 Dose: 10 mg Aspirin (Aspirin Chewable) 81 mg PO DAILY [facility] Last Admin: 05/27/18 08:39 Dose: 81 mg Atorvastatin Calcium (Lipitor) 10 mg PO HS [facility] Last Admin: 05/26/18 22:05 Dose: 10 mg Carvedilol (Coreg) 3.125 mg PO Q12@0900,2100 [facility] Last Admin: 05/27/18 08:40 Dose: 3.125 mg Collagenase (Santyl) 1 applic TOP DAILY [facility] Last Admin: 05/27/18 08:46 Dose: Not Given Docusate Sodium (Colace) 100 mg PO BID [facility] Last Admin: 05/27/18 17:51 Dose: 100 mg Enalapril Maleate (Vasotec) 20 mg PO DAILY [facility] Last Admin: 05/27/18 08:46 Dose: 20 mg Enoxaparin Sodium (Lovenox) 40 mg SC DAILY [facility]; Protocol Last Admin: 05/27/18 08:42 Dose: 40 mg Ferrous Sulfate (Feosol) 325 mg PO TID [facility] Last Admin: 05/27/18 17:52 Dose: 325 mg Fluticasone Propionate (Flonase) 1 spr LUIS Q12 [facility] Last Admin: 05/27/18 08:41 Dose: 1 spr Furosemide (Lasix) 20 mg PO DAILY [facility] Last Admin: 05/25/18 08:32 Dose: 20 mg Guaifenesin (Mucinex La) 600 mg PO Q12 [facility] Last Admin: 05/27/18 08:42 Dose: 600 mg Hydrocortisone (Hydrocortisone 2.5%) 1 applic TOP BID [facility] Last Admin: 05/27/18 17:52 Dose: 1 applic Ipratropium [place] (Atrovent) 0.5 mg IH RQID [facility] Last Admin: 05/27/18 19:40 Dose: 0.5 mg Levalbuterol HCl (Xopenex) 0.63 mg INH RQ8 PRN PRN Reason: Wheezing Last Admin: 05/21/18 00:30 Dose: 0.63 mg Lorazepam (Ativan) 0.5 mg PO DAILY PRN PRN Reason: Anxiety Last Admin: 05/25/18 21:25 Dose: 0.5 mg Metformin HCl (Glucophage) 500 mg PO BID [facility] Last Admin: 05/27/18 17:52 Dose: 500 mg Montelukast Sodium (Singulair) 10 mg PO HS [facility] Last Admin: 05/26/18 22:09 Dose: 10 mg Multivitamins/Minerals (Therapeutic-M Tab) 1 tab PO DAILY [facility] Last Admin: 05/27/18 08:46 Dose: 1 tab Nystatin (Nystop Topical Powder) 1 applic TOP TID [facility] Last Admin: 05/27/18 17:52 Dose: 1 applic Pantoprazole Sodium (Protonix Ec Tab) 20 mg PO BID [facility] Last Admin: 05/27/18 17:52 Dose: 20 mg Paroxetine HCl (Paxil) 20 mg PO DAILY [facility] Last Admin: 05/27/18 08:45 Dose: 20 mg Simethicone (Mylicon Chew Tab) 80 mg PO Q8 PRN PRN Reason: Flatulence - Labs Labs: 05/26/18 05:30 05/27/18 14:57 - Respiratory Exam Respiratory Exam: NORMAL BREATHING PATTERN - Cardiovascular Exam Cardiovascular Exam: REGULAR RHYTHM - GI/Abdominal Exam GI & Abdominal Exam: Normal Bowel Sounds Assessment and Plan - Assessment and Plan (Free Text) Assessment: Deconditioning Rehab Hyponatremia improved 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 Nephrology Samsca given S/P Acute ant wall AR + CE CT scan CHF O2 JAYESH B-[place] Nitrates ASA Lovenox Cardiology Echo Fall etiol?? 2 to above? Telemetry Neuro cardiology COPD R pleural effusion ? infiltrate Prov Atrovent Pulmonary Hx rectal prolapse Surgery Hx of chronic anxiety Ativan
[2018-05-28 07:22] LABS: BLOOD UREA NITROGEN 14 mg/dl (7-17); CALCIUM 8.9 mg/dL (8.4-10.2); GFR NON-AFRICAN AMERICAN > 60
[2018-05-28] MEDS: Albuterol 0.083% Inhal Sol (2.5 mg/3 mL) UD INH SCH ×4 (07:33→19:01)
[2018-05-28] MEDS: Ipratropium 0.02% Inhal Soln (0.5 mg/2.5 ml) UD IH SCH ×4 (07:33→19:01)
[2018-05-28] MEDS: Anusol Suppository PR PRN (09:12)
[2018-05-28] MEDS: Enoxaparin 40 mg Syringe SC SCH (09:12)
[2018-05-28] MEDS: guaiFENesin 600 mg ER Tab PO SCH ×2 (09:13→21:14)
[2018-05-28] MEDS: Pantoprazole 20 mg EC Tab PO SCH ×2 (09:14→17:11)
[2018-05-28] MEDS: Multivitamin With Minerals Tab PO SCH (09:15)
--- NOTE | 2018-05-28 15:52 | CP.PCM.PN ---
Subjective - Date & Time of Evaluation Date of Evaluation: 05/28/18 Time of Evaluation: 15:51 - Subjective Subjective: renal follow upnote no events overnight vitals reviewed nojvd heent normal op moist s1s2 present no resp distress abd soft skin normal ao times 3 hyponatremia Pneumonia copd Fall, DM, HTN, hyperlipidemia, anemia CAD sodium is stable, continue fluid restriction samsca as needed, will hold dose today monitor lytes volume status stable Objective - Vital Signs/Intake and Output Vital Signs (last 24 hours): Temp Pulse Resp BP Pulse Ox 97.5 F L 80 20 140/63 98 05/28/18 15:42 05/28/18 15:42 05/28/18 15:42 05/28/18 15:42 05/28/18 15:42 - Medications Medications: Current Medications Acetaminophen (Tylenol 325mg Tab) 650 mg PO Q4 PRN PRN Reason: Pain, Mild (1-3) Albuterol Sulfate (Albuterol 0.083% Inhal Autumn (2.5 Mg/3 Ml) Ud) 2.5 mg INH RQID [facility] Last Admin: 05/28/18 15:26 Dose: 2.5 mg Alendronate Sodium (Fosamax) 70 mg PO Fr@0600 [facility] Last Admin: 05/22/18 07:24 Dose: 70 mg Amlodipine Besylate (Norvasc) 10 mg PO DAILY [facility] Last Admin: 05/28/18 09:13 Dose: 10 mg Aspirin (Aspirin Chewable) 81 mg PO DAILY [facility] Last Admin: 05/28/18 09:14 Dose: 81 mg Atorvastatin Calcium (Lipitor) 10 mg PO HS [facility] Last Admin: 05/27/18 21:23 Dose: 10 mg Carvedilol (Coreg) 3.125 mg PO Q12@0900,2100 [facility] Last Admin: 05/28/18 09:14 Dose: 3.125 mg Collagenase (Santyl) 1 applic TOP DAILY [facility] Last Admin: 05/27/18 08:46 Dose: Not Given Docusate Sodium (Colace) 100 mg PO BID [facility] Last Admin: 05/28/18 09:13 Dose: 100 mg Enalapril Maleate (Vasotec) 20 mg PO DAILY [facility] Last Admin: 05/28/18 09:13 Dose: 20 mg Enoxaparin Sodium (Lovenox) 40 mg SC DAILY [facility]; Protocol Last Admin: 05/28/18 09:12 Dose: 40 mg Ferrous Sulfate (Feosol) 325 mg PO TID [facility] Last Admin: 05/28/18 13:46 Dose: 325 mg Fluticasone Propionate (Flonase) 1 spr LUIS Q12 [facility] Last Admin: 05/28/18 09:14 Dose: 1 spr Furosemide (Lasix) 20 mg PO DAILY [facility] Last Admin: 05/25/18 08:32 Dose: 20 mg Guaifenesin (Mucinex La) 600 mg PO Q12 [facility] Last Admin: 05/28/18 09:13 Dose: 600 mg Hydrocortisone (Hydrocortisone 2.5%) 1 applic TOP BID [facility] Last Admin: 05/28/18 09:12 Dose: 1 applic Ipratropium [place] (Atrovent) 0.5 mg IH RQID [facility] Last Admin: 05/28/18 15:26 Dose: 0.5 mg Levalbuterol HCl (Xopenex) 0.63 mg INH RQ8 PRN PRN Reason: Wheezing Last Admin: 05/21/18 00:30 Dose: 0.63 mg Lorazepam (Ativan) 0.5 mg PO DAILY PRN PRN Reason: Anxiety Last Admin: 05/25/18 21:25 Dose: 0.5 mg Metformin HCl (Glucophage) 500 mg PO BID [facility] Last Admin: 05/28/18 09:13 Dose: 500 mg Montelukast Sodium (Singulair) 10 mg PO HS [facility] Last Admin: 05/27/18 21:23 Dose: 10 mg Multivitamins/Minerals (Therapeutic-M Tab) 1 tab PO DAILY [facility] Last Admin: 05/28/18 09:15 Dose: 1 tab Nystatin (Nystop Topical Powder) 1 applic TOP TID [facility] Last Admin: 05/28/18 13:47 Dose: 1 applic Pantoprazole Sodium (Protonix Ec Tab) 20 mg PO BID [facility] Last Admin: 05/28/18 09:14 Dose: 20 mg Paroxetine HCl (Paxil) 20 mg PO DAILY [facility] Last Admin: 05/28/18 09:12 Dose: 20 mg Simethicone (Mylicon Chew Tab) 80 mg PO Q8 PRN PRN Reason: Flatulence - Labs Labs: 05/26/18 05:30 05/28/18 06:00
--- NOTE | 2018-05-28 20:18 | CP.PCM.PN ---
Subjective - Date & Time of Evaluation Date of Evaluation: 05/28/18 Time of Evaluation: 22:22 - Subjective Subjective: Na 134 Objective - Vital Signs/Intake and Output Vital Signs (last 24 hours): Temp Pulse Resp BP Pulse Ox 98.2 F 78 20 153/63 H 100 05/28/18 19:46 05/28/18 19:46 05/28/18 19:46 05/28/18 19:46 05/28/18 19:46 - Medications Medications: Current Medications Acetaminophen (Tylenol 325mg Tab) 650 mg PO Q4 PRN PRN Reason: Pain, Mild (1-3) Albuterol Sulfate (Albuterol 0.083% Inhal Autumn (2.5 Mg/3 Ml) Ud) 2.5 mg INH RQID [facility] Last Admin: 05/28/18 19:01 Dose: 2.5 mg Alendronate Sodium (Fosamax) 70 mg PO Fr@0600 [facility] Last Admin: 05/22/18 07:24 Dose: 70 mg Amlodipine Besylate (Norvasc) 10 mg PO DAILY [facility] Last Admin: 05/28/18 09:13 Dose: 10 mg Aspirin (Aspirin Chewable) 81 mg PO DAILY [facility] Last Admin: 05/28/18 09:14 Dose: 81 mg Atorvastatin Calcium (Lipitor) 10 mg PO HS [facility] Last Admin: 05/27/18 21:23 Dose: 10 mg Carvedilol (Coreg) 3.125 mg PO Q12@0900,2100 [facility] Last Admin: 05/28/18 09:14 Dose: 3.125 mg Collagenase (Santyl) 1 applic TOP DAILY [facility] Last Admin: 05/27/18 08:46 Dose: Not Given Docusate Sodium (Colace) 100 mg PO BID [facility] Last Admin: 05/28/18 17:11 Dose: 100 mg Enalapril Maleate (Vasotec) 20 mg PO DAILY [facility] Last Admin: 05/28/18 09:13 Dose: 20 mg Enoxaparin Sodium (Lovenox) 40 mg SC DAILY [facility]; Protocol Last Admin: 05/28/18 09:12 Dose: 40 mg Ferrous Sulfate (Feosol) 325 mg PO TID [facility] Last Admin: 05/28/18 17:10 Dose: 325 mg Fluticasone Propionate (Flonase) 1 spr LUIS Q12 [facility] Last Admin: 05/28/18 09:14 Dose: 1 spr Furosemide (Lasix) 20 mg PO DAILY [facility] Last Admin: 05/25/18 08:32 Dose: 20 mg Guaifenesin (Mucinex La) 600 mg PO Q12 [facility] Last Admin: 05/28/18 09:13 Dose: 600 mg Hydrocortisone (Hydrocortisone 2.5%) 1 applic TOP BID [facility] Last Admin: 05/28/18 17:11 Dose: 1 applic Ipratropium [place] (Atrovent) 0.5 mg IH RQID [facility] Last Admin: 05/28/18 19:01 Dose: 0.5 mg Levalbuterol HCl (Xopenex) 0.63 mg INH RQ8 PRN PRN Reason: Wheezing Last Admin: 05/21/18 00:30 Dose: 0.63 mg Lorazepam (Ativan) 0.5 mg PO DAILY PRN PRN Reason: Anxiety Last Admin: 05/25/18 21:25 Dose: 0.5 mg Metformin HCl (Glucophage) 500 mg PO BID [facility] Last Admin: 05/28/18 17:10 Dose: 500 mg Montelukast Sodium (Singulair) 10 mg PO HS [facility] Last Admin: 05/27/18 21:23 Dose: 10 mg Multivitamins/Minerals (Therapeutic-M Tab) 1 tab PO DAILY [facility] Last Admin: 05/28/18 09:15 Dose: 1 tab Nystatin (Nystop Topical Powder) 1 applic TOP TID [facility] Last Admin: 05/28/18 17:10 Dose: 1 applic Pantoprazole Sodium (Protonix Ec Tab) 20 mg PO BID [facility] Last Admin: 05/28/18 17:11 Dose: 20 mg Paroxetine HCl (Paxil) 20 mg PO DAILY [facility] Last Admin: 05/28/18 09:12 Dose: 20 mg Simethicone (Mylicon Chew Tab) 80 mg PO Q8 PRN PRN Reason: Flatulence - Labs Labs: 05/26/18 05:30 05/28/18 06:00 - Respiratory Exam Respiratory Exam: NORMAL BREATHING PATTERN - Cardiovascular Exam Cardiovascular Exam: REGULAR RHYTHM - GI/Abdominal Exam GI & Abdominal Exam: Normal Bowel Sounds Assessment and Plan - Assessment and Plan (Free Text) Assessment: Deconditioning Rehab Hyponatremia improved 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 Nephrology [place] S/P Acute ant wall [place] + CE CT scan CHF O2 JAYESH B-annia Nitrates ASA Lovenox Cardiology Echo Fall etiol?? 2 to above? Telemetry Neuro cardiology COPD R pleural effusion ? infiltrate Prov Atrovent Pulmonary Hx rectal prolapse Surgery Hx of chronic anxiety Ativan
[2018-05-29] MEDS: ALENDRONATE 70 MG TAB PO SCH (06:54)
[2018-05-29] MEDS: Ipratropium 0.02% Inhal Soln (0.5 mg/2.5 ml) UD IH SCH ×4 (07:29→19:24)
[2018-05-29] MEDS: Albuterol 0.083% Inhal Sol (2.5 mg/3 mL) UD INH SCH ×4 (07:30→19:24)
[2018-05-29] MEDS: Enoxaparin 40 mg Syringe SC SCH (08:43)
[2018-05-29] MEDS: Multivitamin With Minerals Tab PO SCH (08:43)
[2018-05-29] MEDS: guaiFENesin 600 mg ER Tab PO SCH ×2 (08:43→21:40)
[2018-05-29] MEDS: Pantoprazole 20 mg EC Tab PO SCH ×2 (08:44→18:00)
[2018-05-29] MEDS: Santyl Collagenase OINTMENT TOP SCH (08:46)
--- NOTE | 2018-05-29 12:18 | CP.PCM.PN ---
Subjective - Date & Time of Evaluation Date of Evaluation: 05/29/18 Time of Evaluation: 12:13 - Subjective Subjective: Seated in bedside chair. She has some infrequent episodes of bronchospasm relieved with aerosol therapy. Presently she is comfortable w/o cough or SOB. Breath sounds are present equally in both lungs. Few scattered dry rales in the bases. Occasional rhonchi. SpO2 was 87% seated in the chair without oxygen (on room air). Upon applying nasal O2 at 1.5 LPM SpO2 increased to 97%. Objective - Vital Signs/Intake and Output Vital Signs (last 24 hours): Temp Pulse Resp BP Pulse Ox 97.5 F L 78 20 150/76 95 05/29/18 08:17 05/29/18 08:45 05/29/18 08:17 05/29/18 08:45 05/29/18 08:17 - Medications Medications: Current Medications Acetaminophen (Tylenol 325mg Tab) 650 mg PO Q4 PRN PRN Reason: Pain, Mild (1-3) Albuterol Sulfate (Albuterol 0.083% Inhal Autumn (2.5 Mg/3 Ml) Ud) 2.5 mg INH RQID [facility] Last Admin: 05/29/18 11:24 Dose: 2.5 mg Alendronate Sodium (Fosamax) 70 mg PO Fr@0600 [facility] Last Admin: 05/29/18 06:54 Dose: 70 mg Amlodipine Besylate (Norvasc) 10 mg PO DAILY [facility] Last Admin: 05/29/18 08:42 Dose: 10 mg Aspirin (Aspirin Chewable) 81 mg PO DAILY [facility] Last Admin: 05/29/18 08:44 Dose: 81 mg Atorvastatin Calcium (Lipitor) 10 mg PO HS [facility] Last Admin: 05/28/18 21:14 Dose: 10 mg Carvedilol (Coreg) 3.125 mg PO Q12@0900,2100 [facility] Last Admin: 05/29/18 08:45 Dose: 3.125 mg Collagenase (Santyl) 1 applic TOP DAILY [facility] Last Admin: 05/29/18 08:46 Dose: Not Given Docusate Sodium (Colace) 100 mg PO BID [facility] Last Admin: 05/29/18 08:44 Dose: 100 mg Enalapril Maleate (Vasotec) 20 mg PO DAILY [facility] Last Admin: 05/29/18 08:43 Dose: 20 mg Enoxaparin Sodium (Lovenox) 40 mg SC DAILY [facility]; Protocol Last Admin: 05/29/18 08:43 Dose: 40 mg Ferrous Sulfate (Feosol) 325 mg PO TID [facility] Last Admin: 05/29/18 08:44 Dose: 325 mg Fluticasone Propionate (Flonase) 1 spr LUIS Q12 [facility] Last Admin: 05/29/18 08:43 Dose: 1 spr Furosemide (Lasix) 20 mg PO DAILY [facility] Last Admin: 05/25/18 08:32 Dose: 20 mg Guaifenesin (Mucinex La) 600 mg PO Q12 [facility] Last Admin: 05/29/18 08:43 Dose: 600 mg Hydrocortisone (Hydrocortisone 2.5%) 1 applic TOP BID [facility] Last Admin: 05/29/18 08:45 Dose: 1 applic Ipratropium [place] (Atrovent) 0.5 mg IH RQID [facility] Last Admin: 05/29/18 11:24 Dose: 0.5 mg Levalbuterol HCl (Xopenex) 0.63 mg INH RQ8 PRN PRN Reason: Wheezing Last Admin: 05/21/18 00:30 Dose: 0.63 mg Lorazepam (Ativan) 0.5 mg PO DAILY PRN PRN Reason: Anxiety Last Admin: 05/25/18 21:25 Dose: 0.5 mg Metformin HCl (Glucophage) 500 mg PO BID [facility] Last Admin: 05/29/18 08:42 Dose: 500 mg Montelukast Sodium (Singulair) 10 mg PO HS [facility] Last Admin: 05/28/18 21:14 Dose: 10 mg Multivitamins/Minerals (Therapeutic-M Tab) 1 tab PO DAILY [facility] Last Admin: 05/29/18 08:43 Dose: 1 tab Nystatin (Nystop Topical Powder) 1 applic TOP TID [facility] Last Admin: 05/29/18 08:42 Dose: 1 applic Pantoprazole Sodium (Protonix Ec Tab) 20 mg PO BID [facility] Last Admin: 05/29/18 08:44 Dose: 20 mg Paroxetine HCl (Paxil) 20 mg PO DAILY [facility] Last Admin: 05/29/18 08:43 Dose: 20 mg Simethicone (Mylicon Chew Tab) 80 mg PO Q8 PRN PRN Reason: Flatulence - Labs Labs: 05/26/18 05:30 05/28/18 06:00 Assessment and Plan (1) Pneumonia Status: Acute (2) Bronchial asthma Status: Chronic (3) Pleural effusion Status: Acute
--- NOTE | 2018-05-29 12:46 | CP.PCM.PN ---
Subjective - Date & Time of Evaluation Date of Evaluation: 05/29/18 Time of Evaluation: 12:20 - Subjective Subjective: NO COMPLAINTS NO CHEST PAIN BREATHING WELL Objective - Vital Signs/Intake and Output Vital Signs (last 24 hours): Temp Pulse Resp BP Pulse Ox 97.5 F L 78 20 150/76 95 05/29/18 08:17 05/29/18 08:45 05/29/18 08:17 05/29/18 08:45 05/29/18 08:17 - Medications Medications: Current Medications Acetaminophen (Tylenol 325mg Tab) 650 mg PO Q4 PRN PRN Reason: Pain, Mild (1-3) Albuterol Sulfate (Albuterol 0.083% Inhal Autumn (2.5 Mg/3 Ml) Ud) 2.5 mg INH RQID [facility] Last Admin: 05/29/18 11:24 Dose: 2.5 mg Alendronate Sodium (Fosamax) 70 mg PO Fr@0600 [facility] Last Admin: 05/29/18 06:54 Dose: 70 mg Amlodipine Besylate (Norvasc) 10 mg PO DAILY [facility] Last Admin: 05/29/18 08:42 Dose: 10 mg Aspirin (Aspirin Chewable) 81 mg PO DAILY [facility] Last Admin: 05/29/18 08:44 Dose: 81 mg Atorvastatin Calcium (Lipitor) 10 mg PO HS [facility] Last Admin: 05/28/18 21:14 Dose: 10 mg Carvedilol (Coreg) 3.125 mg PO Q12@0900,2100 [facility] Last Admin: 05/29/18 08:45 Dose: 3.125 mg Collagenase (Santyl) 1 applic TOP DAILY [facility] Last Admin: 05/29/18 08:46 Dose: Not Given Docusate Sodium (Colace) 100 mg PO BID [facility] Last Admin: 05/29/18 08:44 Dose: 100 mg Enalapril Maleate (Vasotec) 20 mg PO DAILY [facility] Last Admin: 05/29/18 08:43 Dose: 20 mg Enoxaparin Sodium (Lovenox) 40 mg SC DAILY [facility]; Protocol Last Admin: 05/29/18 08:43 Dose: 40 mg Ferrous Sulfate (Feosol) 325 mg PO TID [facility] Last Admin: 05/29/18 08:44 Dose: 325 mg Fluticasone Propionate (Flonase) 1 spr LUIS Q12 [facility] Last Admin: 05/29/18 08:43 Dose: 1 spr Furosemide (Lasix) 20 mg PO DAILY [facility] Last Admin: 05/25/18 08:32 Dose: 20 mg Guaifenesin (Mucinex La) 600 mg PO Q12 [facility] Last Admin: 05/29/18 08:43 Dose: 600 mg Hydrocortisone (Hydrocortisone 2.5%) 1 applic TOP BID [facility] Last Admin: 05/29/18 08:45 Dose: 1 applic Ipratropium [place] (Atrovent) 0.5 mg IH RQID [facility] Last Admin: 05/29/18 11:24 Dose: 0.5 mg Levalbuterol HCl (Xopenex) 0.63 mg INH RQ8 PRN PRN Reason: Wheezing Last Admin: 05/21/18 00:30 Dose: 0.63 mg Lorazepam (Ativan) 0.5 mg PO DAILY PRN PRN Reason: Anxiety Last Admin: 05/25/18 21:25 Dose: 0.5 mg Metformin HCl (Glucophage) 500 mg PO BID [facility] Last Admin: 05/29/18 08:42 Dose: 500 mg Montelukast Sodium (Singulair) 10 mg PO HS [facility] Last Admin: 05/28/18 21:14 Dose: 10 mg Multivitamins/Minerals (Therapeutic-M Tab) 1 tab PO DAILY [facility] Last Admin: 05/29/18 08:43 Dose: 1 tab Nystatin (Nystop Topical Powder) 1 applic TOP TID [facility] Last Admin: 05/29/18 08:42 Dose: 1 applic Pantoprazole Sodium (Protonix Ec Tab) 20 mg PO BID [facility] Last Admin: 05/29/18 08:44 Dose: 20 mg Paroxetine HCl (Paxil) 20 mg PO DAILY [facility] Last Admin: 05/29/18 08:43 Dose: 20 mg Simethicone (Mylicon Chew Tab) 80 mg PO Q8 PRN PRN Reason: Flatulence - Labs Labs: 05/26/18 05:30 05/28/18 06:00 - Respiratory Exam Respiratory Exam: Clear to Ausculation Bilateral - Cardiovascular Exam Cardiovascular Exam: REGULAR RHYTHM, +S1, +S2 - Extremities Exam Additional comments: NO LE EDEMA Assessment and Plan - Assessment and Plan (Free Text) Assessment: RECENT AWMI-STABLE AND CHEST PAIN FREE COPD WITH RECENT PNEUMONIA-TREATED HYPERTENSION TYPE 2 DM Plan: CONTINUE CARVEDILOL, ENALAPRIL, AMLODIPINE, ASPIRIN, LOVENOX, COPD MEDS AND GLUCOPHAGE
--- NOTE | 2018-05-29 14:25 | CP.PCM.PN ---
Subjective - Date & Time of Evaluation Date of Evaluation: 05/29/18 Time of Evaluation: 22:22 - Subjective Subjective: Above noted Objective - Vital Signs/Intake and Output Vital Signs (last 24 hours): Temp Pulse Resp BP Pulse Ox 97.5 F L 78 20 150/68 98 05/29/18 08:17 05/29/18 08:45 05/29/18 08:17 05/29/18 13:27 05/29/18 13:27 - Medications Medications: Current Medications Acetaminophen (Tylenol 325mg Tab) 650 mg PO Q4 PRN PRN Reason: Pain, Mild (1-3) Albuterol Sulfate (Albuterol 0.083% Inhal Autumn (2.5 Mg/3 Ml) Ud) 2.5 mg INH RQID [facility] Last Admin: 05/29/18 11:24 Dose: 2.5 mg Alendronate Sodium (Fosamax) 70 mg PO Fr@0600 [facility] Last Admin: 05/29/18 06:54 Dose: 70 mg Amlodipine Besylate (Norvasc) 10 mg PO DAILY [facility] Last Admin: 05/29/18 08:42 Dose: 10 mg Aspirin (Aspirin Chewable) 81 mg PO DAILY [facility] Last Admin: 05/29/18 08:44 Dose: 81 mg Atorvastatin Calcium (Lipitor) 10 mg PO HS [facility] Last Admin: 05/28/18 21:14 Dose: 10 mg Carvedilol (Coreg) 3.125 mg PO Q12@0900,2100 [facility] Last Admin: 05/29/18 08:45 Dose: 3.125 mg Collagenase (Santyl) 1 applic TOP DAILY [facility] Last Admin: 05/29/18 08:46 Dose: Not Given Docusate Sodium (Colace) 100 mg PO BID [facility] Last Admin: 05/29/18 08:44 Dose: 100 mg Enalapril Maleate (Vasotec) 20 mg PO DAILY [facility] Last Admin: 05/29/18 08:43 Dose: 20 mg Enoxaparin Sodium (Lovenox) 40 mg SC DAILY [facility]; Protocol Last Admin: 05/29/18 08:43 Dose: 40 mg Ferrous Sulfate (Feosol) 325 mg PO TID [facility] Last Admin: 05/29/18 13:38 Dose: 325 mg Fluticasone Propionate (Flonase) 1 spr LUIS Q12 [facility] Last Admin: 05/29/18 08:43 Dose: 1 spr Furosemide (Lasix) 20 mg PO DAILY [facility] Last Admin: 05/25/18 08:32 Dose: 20 mg Guaifenesin (Mucinex La) 600 mg PO Q12 [facility] Last Admin: 05/29/18 08:43 Dose: 600 mg Hydrocortisone (Hydrocortisone 2.5%) 1 applic TOP BID [facility] Last Admin: 05/29/18 08:45 Dose: 1 applic Ipratropium [place] (Atrovent) 0.5 mg IH RQID [facility] Last Admin: 05/29/18 11:24 Dose: 0.5 mg Levalbuterol HCl (Xopenex) 0.63 mg INH RQ8 PRN PRN Reason: Wheezing Last Admin: 05/21/18 00:30 Dose: 0.63 mg Lorazepam (Ativan) 0.5 mg PO DAILY PRN PRN Reason: Anxiety Last Admin: 05/25/18 21:25 Dose: 0.5 mg Metformin HCl (Glucophage) 500 mg PO BID [facility] Last Admin: 05/29/18 08:42 Dose: 500 mg Montelukast Sodium (Singulair) 10 mg PO HS [facility] Last Admin: 05/28/18 21:14 Dose: 10 mg Multivitamins/Minerals (Therapeutic-M Tab) 1 tab PO DAILY [facility] Last Admin: 05/29/18 08:43 Dose: 1 tab Nystatin (Nystop Topical Powder) 1 applic TOP TID [facility] Last Admin: 05/29/18 13:38 Dose: 1 applic Pantoprazole Sodium (Protonix Ec Tab) 20 mg PO BID [facility] Last Admin: 05/29/18 08:44 Dose: 20 mg Paroxetine HCl (Paxil) 20 mg PO DAILY [facility] Last Admin: 05/29/18 08:43 Dose: 20 mg Simethicone (Mylicon Chew Tab) 80 mg PO Q8 PRN PRN Reason: Flatulence - Labs Labs: 05/26/18 05:30 05/28/18 06:00 - Respiratory Exam Respiratory Exam: NORMAL BREATHING PATTERN - Cardiovascular Exam Cardiovascular Exam: REGULAR RHYTHM - GI/Abdominal Exam GI & Abdominal Exam: Normal Bowel Sounds Assessment and Plan - Assessment and Plan (Free Text) Assessment: Deconditioning Rehab S/P Acute ant wall [place] + CE CT scan CHF O2 JAYESH B-annia Nitrates ASA Lovenox Cardiology Echo Fall etiol?? 2 to above? COPD R pleural effusion ? 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 Nephrology [facility] Hx rectal prolapse Surgery Hx of chronic anxiety Ativan
--- NOTE | 2018-05-29 16:21 | CP.PCM.PN ---
Subjective - Date & Time of Evaluation Date of Evaluation: 05/29/18 Time of Evaluation: 16:19 - Subjective Subjective: Podiatry progress note for Dr. You 88F seen at bedside for right ankle wound. Resting comfortably. Denies acute overnight events. Denies pain to the lower extremity. Denies N/V/F/C/SOB/CP today. Objective - Vital Signs/Intake and Output Vital Signs (last 24 hours): Temp Pulse Resp BP Pulse Ox 97.7 F 74 20 148/64 98 05/29/18 15:49 05/29/18 15:49 05/29/18 15:49 05/29/18 15:49 05/29/18 15:49 - Medications Medications: Current Medications Acetaminophen (Tylenol 325mg Tab) 650 mg PO Q4 PRN PRN Reason: Pain, Mild (1-3) Albuterol Sulfate (Albuterol 0.083% Inhal Autumn (2.5 Mg/3 Ml) Ud) 2.5 mg INH RQID [facility] Last Admin: 05/29/18 15:15 Dose: 2.5 mg Alendronate Sodium (Fosamax) 70 mg PO Fr@0600 [facility] Last Admin: 05/29/18 06:54 Dose: 70 mg Amlodipine Besylate (Norvasc) 10 mg PO DAILY [facility] Last Admin: 05/29/18 08:42 Dose: 10 mg Aspirin (Aspirin Chewable) 81 mg PO DAILY [facility] Last Admin: 05/29/18 08:44 Dose: 81 mg Atorvastatin Calcium (Lipitor) 10 mg PO HS [facility] Last Admin: 05/28/18 21:14 Dose: 10 mg Carvedilol (Coreg) 3.125 mg PO Q12@0900,2100 [facility] Last Admin: 05/29/18 08:45 Dose: 3.125 mg Collagenase (Santyl) 1 applic TOP DAILY [facility] Last Admin: 05/29/18 08:46 Dose: Not Given Docusate Sodium (Colace) 100 mg PO BID [facility] Last Admin: 05/29/18 08:44 Dose: 100 mg Enalapril Maleate (Vasotec) 20 mg PO DAILY [facility] Last Admin: 05/29/18 08:43 Dose: 20 mg Enoxaparin Sodium (Lovenox) 40 mg SC DAILY [facility]; Protocol Last Admin: 05/29/18 08:43 Dose: 40 mg Ferrous Sulfate (Feosol) 325 mg PO TID [facility] Last Admin: 05/29/18 13:38 Dose: 325 mg Fluticasone Propionate (Flonase) 1 spr LUIS Q12 [facility] Last Admin: 05/29/18 08:43 Dose: 1 spr Furosemide (Lasix) 20 mg PO DAILY [facility] Last Admin: 05/25/18 08:32 Dose: 20 mg Guaifenesin (Mucinex La) 600 mg PO Q12 [facility] Last Admin: 05/29/18 08:43 Dose: 600 mg Hydrocortisone (Hydrocortisone 2.5%) 1 applic TOP BID [facility] Last Admin: 05/29/18 08:45 Dose: 1 applic Ipratropium [place] (Atrovent) 0.5 mg IH RQID [facility] Last Admin: 05/29/18 15:15 Dose: 0.5 mg Levalbuterol HCl (Xopenex) 0.63 mg INH RQ8 PRN PRN Reason: Wheezing Last Admin: 05/21/18 00:30 Dose: 0.63 mg Lorazepam (Ativan) 0.5 mg PO DAILY PRN PRN Reason: Anxiety Last Admin: 05/25/18 21:25 Dose: 0.5 mg Metformin HCl (Glucophage) 500 mg PO BID [facility] Last Admin: 05/29/18 08:42 Dose: 500 mg Montelukast Sodium (Singulair) 10 mg PO HS [facility] Last Admin: 05/28/18 21:14 Dose: 10 mg Multivitamins/Minerals (Therapeutic-M Tab) 1 tab PO DAILY [facility] Last Admin: 05/29/18 08:43 Dose: 1 tab Nystatin (Nystop Topical Powder) 1 applic TOP TID [facility] Last Admin: 05/29/18 13:38 Dose: 1 applic Pantoprazole Sodium (Protonix Ec Tab) 20 mg PO BID [facility] Last Admin: 05/29/18 08:44 Dose: 20 mg Paroxetine HCl (Paxil) 20 mg PO DAILY [facility] Last Admin: 05/29/18 08:43 Dose: 20 mg Simethicone (Mylicon Chew Tab) 80 mg PO Q8 PRN PRN Reason: Flatulence - Labs Labs: 05/26/18 05:30 05/28/18 06:00 - Constitutional Appears: Well, Non-toxic - Head Exam Head Exam: ATRAUMATIC - Extremities Exam Additional comments: Right lower extremity exam: vascular: dp/pt pulses palpable, CFT <3 secs x 5, Tg warm to cool, periwound erythema noted, no erythema otherwise, no edema noted neuro: unable to obtain derm: right medial malleolus wound with fibrogranular base noted measuring approimately 0.9cm x 0.3cm, periwound erythema, no drainage appreciated, no malodor, no clinical signs of infection ortho: pain with palpation of the wound site - Neurological Exam Neurological Exam: Alert, Awake Assessment and Plan - Assessment and Plan (Free Text) Assessment: 88F with stable right ankle pressure ulcer Plan: Patient seen and evaluated Chart, labs and vitals reviewed Wound cleansed with normal saline, dressed with Santyl and DSD Podiatry will continue to follow the patient while in house Patient will follow up with Dr. You upon discharge
[2018-05-30] MEDS: Albuterol 0.083% Inhal Sol (2.5 mg/3 mL) UD INH SCH ×4 (07:41→19:18)
[2018-05-30] MEDS: Ipratropium 0.02% Inhal Soln (0.5 mg/2.5 ml) UD IH SCH ×4 (07:41→19:18)
[2018-05-30 08:00] LABS: HEMOGLOBIN 10.8 g/dL (12.0-16.0); MEAN CORPUSCULAR HEMOGLOBIN 33.2 pg (27.0-31.0); MEAN CORPUSCULAR HGB CONC 33.9 g/dL (33.0-37.0); RBC 3.24 Mil/uL (3.80-5.20); RED CELL DISTRIBUTION WIDTH 13.6 % (11.5-14.5); WHITE BLOOD COUNT 8.9 K/uL (4.8-10.8)
[2018-05-30 08:09] LABS: ALB/GLOB RATIO 1.4 (1.0-2.1); ALBUMIN 3.9 g/dL (3.5-5.0); ALT/SGPT 37 U/L (9-52); AST/SGOT 34 U/L (14-36); BLOOD UREA NITROGEN 13 mg/dl (7-17); CALCIUM 8.6 mg/dL (8.4-10.2); GFR NON-AFRICAN AMERICAN > 60
[2018-05-30] MEDS: Enoxaparin 40 mg Syringe SC SCH (09:18)
[2018-05-30] MEDS: guaiFENesin 600 mg ER Tab PO SCH ×2 (09:20→21:21)
[2018-05-30] MEDS: Pantoprazole 20 mg EC Tab PO SCH ×2 (09:20→16:35)
[2018-05-30] MEDS: Multivitamin With Minerals Tab PO SCH (09:20)
[2018-05-30] MEDS: Santyl Collagenase OINTMENT TOP SCH (09:21)
--- NOTE | 2018-05-30 23:35 | CP.PCM.PN ---
Subjective - Date & Time of Evaluation Date of Evaluation: 05/30/18 Time of Evaluation: 22:22 - Subjective Subjective: Doing well Objective - Vital Signs/Intake and Output Vital Signs (last 24 hours): Temp Pulse Resp BP Pulse Ox 97.9 F 70 20 150/70 98 05/30/18 20:30 05/30/18 21:22 05/30/18 20:30 05/30/18 21:22 05/30/18 20:30 - Medications Medications: Current Medications Acetaminophen (Tylenol 325mg Tab) 650 mg PO Q4 PRN PRN Reason: Pain, Mild (1-3) Albuterol Sulfate (Albuterol 0.083% Inhal Autumn (2.5 Mg/3 Ml) Ud) 2.5 mg INH RQID [facility] Last Admin: 05/30/18 19:18 Dose: 2.5 mg Alendronate Sodium (Fosamax) 70 mg PO Fr@0600 [facility] Last Admin: 05/29/18 06:54 Dose: 70 mg Amlodipine Besylate (Norvasc) 10 mg PO DAILY [facility] Last Admin: 05/30/18 09:20 Dose: 10 mg Aspirin (Aspirin Chewable) 81 mg PO DAILY [facility] Last Admin: 05/30/18 09:19 Dose: 81 mg Atorvastatin Calcium (Lipitor) 10 mg PO HS [facility] Last Admin: 05/30/18 21:22 Dose: 10 mg Carvedilol (Coreg) 3.125 mg PO Q12@0900,2100 [facility] Last Admin: 05/30/18 21:22 Dose: 3.125 mg Collagenase (Santyl) 1 applic TOP DAILY [facility] Last Admin: 05/30/18 09:21 Dose: Not Given Docusate Sodium (Colace) 100 mg PO BID [facility] Last Admin: 05/30/18 16:35 Dose: 100 mg Enalapril Maleate (Vasotec) 20 mg PO DAILY [facility] Last Admin: 05/30/18 09:21 Dose: 20 mg Enoxaparin Sodium (Lovenox) 40 mg SC DAILY [facility]; Protocol Last Admin: 05/30/18 09:18 Dose: 40 mg Ferrous Sulfate (Feosol) 325 mg PO TID [facility] Last Admin: 05/30/18 16:35 Dose: 325 mg Fluticasone Propionate (Flonase) 1 spr LUIS Q12 [facility] Last Admin: 05/30/18 21:21 Dose: 1 spr Furosemide (Lasix) 20 mg PO DAILY [facility] Last Admin: 05/25/18 08:32 Dose: 20 mg Guaifenesin (Mucinex La) 600 mg PO Q12 [facility] Last Admin: 05/30/18 21:21 Dose: 600 mg Hydrocortisone (Hydrocortisone 2.5%) 1 applic TOP BID [facility] Last Admin: 05/30/18 17:07 Dose: 1 applic Ipratropium [place] (Atrovent) 0.5 mg IH RQID [facility] Last Admin: 05/30/18 19:18 Dose: 0.5 mg Levalbuterol HCl (Xopenex) 0.63 mg INH RQ8 PRN PRN Reason: Wheezing Last Admin: 05/21/18 00:30 Dose: 0.63 mg Lorazepam (Ativan) 0.5 mg PO DAILY PRN PRN Reason: Anxiety Last Admin: 05/25/18 21:25 Dose: 0.5 mg Metformin HCl (Glucophage) 500 mg PO BID [facility] Last Admin: 05/30/18 16:35 Dose: 500 mg Montelukast Sodium (Singulair) 10 mg PO HS [facility] Last Admin: 05/30/18 21:22 Dose: 10 mg Multivitamins/Minerals (Therapeutic-M Tab) 1 tab PO DAILY [facility] Last Admin: 05/30/18 09:20 Dose: 1 tab Nystatin (Nystop Topical Powder) 1 applic TOP TID [facility] Last Admin: 05/30/18 16:35 Dose: 1 applic Pantoprazole Sodium (Protonix Ec Tab) 20 mg PO BID [facility] Last Admin: 05/30/18 16:35 Dose: 20 mg Paroxetine HCl (Paxil) 20 mg PO DAILY [facility] Last Admin: 05/30/18 09:21 Dose: 20 mg Simethicone (Mylicon Chew Tab) 80 mg PO Q8 PRN PRN Reason: Flatulence - Labs Labs: 05/30/18 06:29 05/30/18 06:29 - Respiratory Exam Respiratory Exam: NORMAL BREATHING PATTERN - Cardiovascular Exam Cardiovascular Exam: REGULAR RHYTHM - GI/Abdominal Exam GI & Abdominal Exam: Normal Bowel Sounds Assessment and Plan - Assessment and Plan (Free Text) Assessment: Deconditioning Rehab S/P Acute ant wall AK + CE CT scan CHF O2 JAYESH B-annia Nitrates ASA Lovenox Cardiology Echo Fall etiol?? 2 to above? COPD R pleural effusion ? 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 Nephrology [place] Hx rectal prolapse Surgery Hx of chronic anxiety Ativan
[2018-05-30] MEDS: Levalbuterol 0.63 MG/3 ML Inhal Soln UD INH PRN (23:52)
[2018-05-31] MEDS: Ipratropium 0.02% Inhal Soln (0.5 mg/2.5 ml) UD IH SCH ×4 (08:35→19:08)
[2018-05-31] MEDS: Albuterol 0.083% Inhal Sol (2.5 mg/3 mL) UD INH SCH ×4 (08:36→19:08)
[2018-05-31] MEDS: Multivitamin With Minerals Tab PO SCH (09:05)
[2018-05-31] MEDS: Enoxaparin 40 mg Syringe SC SCH (09:06)
[2018-05-31] MEDS: Santyl Collagenase OINTMENT TOP SCH (09:06)
[2018-05-31] MEDS: Pantoprazole 20 mg EC Tab PO SCH ×2 (09:07→17:13)
[2018-05-31] MEDS: guaiFENesin 600 mg ER Tab PO SCH ×2 (11:44→21:28)
--- NOTE | 2018-05-31 14:27 | CP.PCM.PN ---
Subjective - Date & Time of Evaluation Date of Evaluation: 05/31/18 Time of Evaluation: 22:22 - Subjective Subjective: Doing well Objective - Vital Signs/Intake and Output Vital Signs (last 24 hours): Temp Pulse Resp BP Pulse Ox 97.6 F 80 18 144/69 97 05/31/18 10:00 05/31/18 10:00 05/31/18 10:00 05/31/18 10:00 05/31/18 10:00 - Medications Medications: Current Medications Acetaminophen (Tylenol 325mg Tab) 650 mg PO Q4 PRN PRN Reason: Pain, Mild (1-3) Albuterol Sulfate (Albuterol 0.083% Inhal Autumn (2.5 Mg/3 Ml) Ud) 2.5 mg INH RQID [facility] Last Admin: 05/31/18 11:27 Dose: 2.5 mg Alendronate Sodium (Fosamax) 70 mg PO Fr@0600 [facility] Last Admin: 05/29/18 06:54 Dose: 70 mg Amlodipine Besylate (Norvasc) 10 mg PO DAILY [facility] Last Admin: 05/31/18 09:09 Dose: 10 mg Aspirin (Aspirin Chewable) 81 mg PO DAILY [facility] Last Admin: 05/31/18 09:06 Dose: 81 mg Atorvastatin Calcium (Lipitor) 10 mg PO HS [facility] Last Admin: 05/30/18 21:22 Dose: 10 mg Carvedilol (Coreg) 3.125 mg PO Q12@0900,2100 [facility] Last Admin: 05/31/18 09:02 Dose: 3.125 mg Collagenase (Santyl) 1 applic TOP DAILY [facility] Last Admin: 05/31/18 09:06 Dose: Not Given Docusate Sodium (Colace) 100 mg PO BID [facility] Last Admin: 05/31/18 09:03 Dose: 100 mg Enalapril Maleate (Vasotec) 20 mg PO DAILY [facility] Last Admin: 05/31/18 09:09 Dose: 20 mg Enoxaparin Sodium (Lovenox) 40 mg SC DAILY [facility]; Protocol Last Admin: 05/31/18 09:06 Dose: 40 mg Ferrous Sulfate (Feosol) 325 mg PO TID [facility] Last Admin: 05/31/18 12:27 Dose: 325 mg Fluticasone Propionate (Flonase) 1 spr LUIS Q12 [facility] Last Admin: 05/31/18 09:04 Dose: 1 spr Furosemide (Lasix) 20 mg PO DAILY [facility] Last Admin: 05/25/18 08:32 Dose: 20 mg Guaifenesin (Mucinex La) 600 mg PO Q12 [facility] Last Admin: 05/31/18 11:44 Dose: 600 mg Hydrocortisone (Hydrocortisone 2.5%) 1 applic TOP BID [facility] Last Admin: 05/31/18 09:04 Dose: 1 applic Ipratropium [place] (Atrovent) 0.5 mg IH RQID [facility] Last Admin: 05/31/18 11:27 Dose: 0.5 mg Levalbuterol HCl (Xopenex) 0.63 mg INH RQ8 PRN PRN Reason: Wheezing Last Admin: 05/30/18 23:52 Dose: 0.63 mg Lorazepam (Ativan) 0.5 mg PO DAILY PRN PRN Reason: Anxiety Last Admin: 05/25/18 21:25 Dose: 0.5 mg Metformin HCl (Glucophage) 500 mg PO BID [facility] Last Admin: 05/31/18 09:02 Dose: 500 mg Montelukast Sodium (Singulair) 10 mg PO HS [facility] Last Admin: 05/30/18 21:22 Dose: 10 mg Multivitamins/Minerals (Therapeutic-M Tab) 1 tab PO DAILY [facility] Last Admin: 05/31/18 09:05 Dose: 1 tab Nystatin (Nystop Topical Powder) 1 applic TOP TID [facility] Last Admin: 05/31/18 12:27 Dose: 1 applic Pantoprazole Sodium (Protonix Ec Tab) 20 mg PO BID [facility] Last Admin: 05/31/18 09:07 Dose: 20 mg Paroxetine HCl (Paxil) 20 mg PO DAILY [facility] Last Admin: 05/31/18 09:08 Dose: 20 mg Simethicone (Mylicon Chew Tab) 80 mg PO Q8 PRN PRN Reason: Flatulence - Labs Labs: 05/30/18 06:29 05/30/18 06:29 - Respiratory Exam Respiratory Exam: NORMAL BREATHING PATTERN - Cardiovascular Exam Cardiovascular Exam: REGULAR RHYTHM - GI/Abdominal Exam GI & Abdominal Exam: Normal Bowel Sounds Assessment and Plan - Assessment and Plan (Free Text) Assessment: Deconditioning Rehab S/P Acute ant wall UT + CE CT scan CHF O2 JAYESH B-annia Nitrates ASA Lovenox Cardiology Echo Fall etiol?? 2 to above? COPD R pleural effusion ? 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 Nephrology [place] Hx rectal prolapse Surgery Hx of chronic anxiety Ativan
[2018-05-31] MEDS ORDERED: Tolvaptan 15 MG TAB PO ONE (14:55)
[2018-05-31 15:37] LABS: BLOOD UREA NITROGEN 15 mg/dl (7-17); CALCIUM 8.7 mg/dL (8.4-10.2); GFR NON-AFRICAN AMERICAN > 60
[2018-05-31 17:10] VITALS: RESP 20
--- NOTE | 2018-05-31 17:38 | CP.PCM.PN ---
Subjective - Date & Time of Evaluation Date of Evaluation: 05/31/18 Time of Evaluation: 17:36 - Subjective Subjective: Podiatry progress note for Dr. You 88F seen at bedside for right ankle wound. Resting comfortably. Denies acute overnight events. Seen with her children at bedside. Denies pain to the lower extremity. Denies N/V/F/C/SOB/CP today. Objective - Vital Signs/Intake and Output Vital Signs (last 24 hours): Temp Pulse Resp BP Pulse Ox 97.7 F 77 20 137/59 L 95 05/31/18 17:10 05/31/18 17:10 05/31/18 17:10 05/31/18 17:10 05/31/18 17:10 - Medications Medications: Current Medications Acetaminophen (Tylenol 325mg Tab) 650 mg PO Q4 PRN PRN Reason: Pain, Mild (1-3) Albuterol Sulfate (Albuterol 0.083% Inhal Autumn (2.5 Mg/3 Ml) Ud) 2.5 mg INH RQID [facility] Last Admin: 05/31/18 15:33 Dose: 2.5 mg Alendronate Sodium (Fosamax) 70 mg PO Fr@0600 [facility] Last Admin: 05/29/18 06:54 Dose: 70 mg Amlodipine Besylate (Norvasc) 10 mg PO DAILY [facility] Last Admin: 05/31/18 09:09 Dose: 10 mg Aspirin (Aspirin Chewable) 81 mg PO DAILY [facility] Last Admin: 05/31/18 09:06 Dose: 81 mg Atorvastatin Calcium (Lipitor) 10 mg PO HS [facility] Last Admin: 05/30/18 21:22 Dose: 10 mg Carvedilol (Coreg) 3.125 mg PO Q12@0900,2100 [facility] Last Admin: 05/31/18 09:02 Dose: 3.125 mg Collagenase (Santyl) 1 applic TOP DAILY [facility] Last Admin: 05/31/18 09:06 Dose: Not Given Docusate Sodium (Colace) 100 mg PO BID [facility] Last Admin: 05/31/18 17:11 Dose: 100 mg Enalapril Maleate (Vasotec) 20 mg PO DAILY [facility] Last Admin: 05/31/18 09:09 Dose: 20 mg Ferrous Sulfate (Feosol) 325 mg PO TID [facility] Last Admin: 05/31/18 17:11 Dose: 325 mg Fluticasone Propionate (Flonase) 1 spr LUIS Q12 [facility] Last Admin: 05/31/18 09:04 Dose: 1 spr Furosemide (Lasix) 20 mg PO DAILY [facility] Last Admin: 05/25/18 08:32 Dose: 20 mg Guaifenesin (Mucinex La) 600 mg PO Q12 [facility] Last Admin: 05/31/18 11:44 Dose: 600 mg Hydrocortisone (Hydrocortisone 2.5%) 1 applic TOP BID [facility] Last Admin: 05/31/18 17:12 Dose: 1 applic Ipratropium [place] (Atrovent) 0.5 mg IH RQID [facility] Last Admin: 05/31/18 15:33 Dose: 0.5 mg Levalbuterol HCl (Xopenex) 0.63 mg INH RQ8 PRN PRN Reason: Wheezing Last Admin: 05/30/18 23:52 Dose: 0.63 mg Lorazepam (Ativan) 0.5 mg PO DAILY PRN PRN Reason: Anxiety Last Admin: 05/25/18 21:25 Dose: 0.5 mg Metformin HCl (Glucophage) 500 mg PO BID [facility] Last Admin: 05/31/18 17:12 Dose: 500 mg Montelukast Sodium (Singulair) 10 mg PO HS [facility] Last Admin: 05/30/18 21:22 Dose: 10 mg Multivitamins/Minerals (Therapeutic-M Tab) 1 tab PO DAILY [facility] Last Admin: 05/31/18 09:05 Dose: 1 tab Nystatin (Nystop Topical Powder) 1 applic TOP TID [facility] Last Admin: 05/31/18 17:12 Dose: 1 applic Pantoprazole Sodium (Protonix Ec Tab) 20 mg PO BID [facility] Last Admin: 05/31/18 17:13 Dose: 20 mg Paroxetine HCl (Paxil) 20 mg PO DAILY [facility] Last Admin: 05/31/18 09:08 Dose: 20 mg Simethicone (Mylicon Chew Tab) 80 mg PO Q8 PRN PRN Reason: Flatulence - Labs Labs: 05/30/18 06:29 05/31/18 14:40 - Constitutional Appears: Well, Non-toxic - Head Exam Head Exam: ATRAUMATIC - Extremities Exam Additional comments: Right lower extremity exam: vascular: dp/pt pulses palpable, CFT <3 secs x 5, Tg warm to cool, periwound erythema noted, no erythema otherwise, no edema noted neuro: unable to obtain derm: right medial malleolus wound with fibrogranular base noted measuring approimately 0.7cm x 0.2cm, periwound erythema, no drainage appreciated, no malodor, no clinical signs of infection ortho: pain with palpation of the wound site Assessment and Plan - Assessment and Plan (Free Text) Assessment: 88F with stable right ankle pressure ulcer Plan: Patient seen and evaluated Chart, labs and vitals reviewed Wound cleansed with normal saline, dressed with Santyl and DSD Stable for discharge from podiatry point of view. Podiatry will continue to follow the patient while in house Patient will follow up with Dr. You upon discharge
[2018-06-01] MEDS: Ipratropium 0.02% Inhal Soln (0.5 mg/2.5 ml) UD IH SCH ×4 (08:25→19:04)
[2018-06-01] MEDS: Albuterol 0.083% Inhal Sol (2.5 mg/3 mL) UD INH SCH ×4 (08:25→19:04)
[2018-06-01] MEDS: Multivitamin With Minerals Tab PO SCH (08:48)
[2018-06-01] MEDS: Pantoprazole 20 mg EC Tab PO SCH ×2 (08:49→16:47)
[2018-06-01] MEDS: guaiFENesin 600 mg ER Tab PO SCH ×3 (08:50→21:42)
[2018-06-01] MEDS: Santyl Collagenase OINTMENT TOP SCH (08:51)
--- NOTE | 2018-06-01 09:28 | CP.PCM.PN ---
Subjective - Date & Time of Evaluation Date of Evaluation: 06/01/18 Time of Evaluation: 09:00 - Subjective Subjective: NO COMPALINTS NO CHEST PAIN BREATHING WELL Objective - Vital Signs/Intake and Output Vital Signs (last 24 hours): Temp Pulse Resp BP Pulse Ox 97.8 F 86 20 156/72 H 97 06/01/18 08:24 06/01/18 08:49 06/01/18 08:24 06/01/18 08:49 06/01/18 08:24 - Medications Medications: Current Medications Acetaminophen (Tylenol 325mg Tab) 650 mg PO Q4 PRN PRN Reason: Pain, Mild (1-3) Albuterol Sulfate (Albuterol 0.083% Inhal Autumn (2.5 Mg/3 Ml) Ud) 2.5 mg INH RQID [facility] Last Admin: 06/01/18 08:25 Dose: 2.5 mg Alendronate Sodium (Fosamax) 70 mg PO Fr@0600 [facility] Last Admin: 05/29/18 06:54 Dose: 70 mg Amlodipine Besylate (Norvasc) 10 mg PO DAILY [facility] Last Admin: 06/01/18 08:49 Dose: 10 mg Aspirin (Aspirin Chewable) 81 mg PO DAILY [facility] Last Admin: 06/01/18 08:48 Dose: 81 mg Atorvastatin Calcium (Lipitor) 10 mg PO HS [facility] Last Admin: 05/31/18 21:05 Dose: 10 mg Carvedilol (Coreg) 3.125 mg PO Q12@0900,2100 [facility] [place] Last Admin: 06/01/18 08:48 Dose: 3.125 mg Collagenase (Santyl) 1 applic TOP DAILY [facility] [place] Last Admin: 06/01/18 08:51 Dose: Not Given Docusate Sodium (Colace) 100 mg PO BID [facility] Last Admin: 06/01/18 08:50 Dose: 100 mg Enalapril Maleate (Vasotec) 20 mg PO DAILY [facility] [place] Last Admin: 06/01/18 08:51 Dose: 20 mg Enoxaparin Sodium (Lovenox) 40 mg SC DAILY [facility]; Protocol Ferrous Sulfate (Feosol) 325 mg PO TID [facility] [place] Last Admin: 06/01/18 08:49 Dose: 325 mg Fluticasone Propionate (Flonase) 1 spr LUIS Q12 [facility] [place] Last Admin: 06/01/18 08:50 Dose: 1 spr Furosemide (Lasix) 20 mg PO DAILY [facility] [place] Last Admin: 05/25/18 08:32 Dose: 20 mg Guaifenesin (Mucinex La) 600 mg PO Q12 [facility] [place] Last Admin: 05/31/18 21:28 Dose: 600 mg Hydrocortisone (Hydrocortisone 2.5%) 1 applic TOP BID [facility] [place] Last Admin: 06/01/18 08:50 Dose: 1 applic Ipratropium [place] (Atrovent) 0.5 mg IH RQID [facility] Last Admin: 06/01/18 08:25 Dose: 0.5 mg Levalbuterol HCl (Xopenex) 0.63 mg INH RQ8 PRN PRN Reason: Wheezing Last Admin: 05/30/18 23:52 Dose: 0.63 mg Lorazepam (Ativan) 0.5 mg PO DAILY PRN PRN Reason: Anxiety Last Admin: 05/25/18 21:25 Dose: 0.5 mg Metformin HCl (Glucophage) 500 mg PO BID [facility] [place] Last Admin: 06/01/18 08:49 Dose: 500 mg Montelukast Sodium (Singulair) 10 mg PO HS [facility] [place] Last Admin: 05/31/18 21:05 Dose: 10 mg Multivitamins/Minerals (Therapeutic-M Tab) 1 tab PO DAILY [facility] [place] Last Admin: 06/01/18 08:48 Dose: 1 tab Nystatin (Nystop Topical Powder) 1 applic TOP TID [facility] [place] Last Admin: 06/01/18 08:48 Dose: 1 applic Pantoprazole Sodium (Protonix Ec Tab) 20 mg PO BID [facility] [place] Last Admin: 06/01/18 08:49 Dose: 20 mg Paroxetine HCl (Paxil) 20 mg PO DAILY [facility] [place] Last Admin: 06/01/18 08:48 Dose: 20 mg Simethicone (Mylicon Chew Tab) 80 mg PO Q8 PRN PRN Reason: Flatulence - Labs Labs: 05/30/18 06:29 05/31/18 14:40 - Respiratory Exam Respiratory Exam: Clear to Ausculation Bilateral - Cardiovascular Exam Cardiovascular Exam: REGULAR RHYTHM, +S1, +S2 - Extremities Exam Additional comments: NO LE EDEMA Assessment and Plan - Assessment and Plan (Free Text) Assessment: CAD WITH RECENT AWMI-CHEST PAIN FREE AND STABLE HYPERTENSION COPD WITH RECENT PNEUMONIA TYPE 2 DM Plan: CONTINUE CARVEDILOL, AMLODIPINE, ENALAPRIL, ASPIRIN, LOVENOX, ATORVASTATIN, COPD MEDS, GLUCOPHAGE
[2018-06-01 09:53] LABS: BLOOD UREA NITROGEN 15 mg/dl (7-17); CALCIUM 9.3 mg/dL (8.4-10.2); GFR NON-AFRICAN AMERICAN > 60
--- NOTE | 2018-06-01 10:09 | CP.PCM.PN ---
Subjective - Date & Time of Evaluation Date of Evaluation: 06/01/18 Time of Evaluation: 10:07 - Subjective Subjective: patient out in the chair sitting and drinking a lot of water and fluid . Objective - Vital Signs/Intake and Output Vital Signs (last 24 hours): Temp Pulse Resp BP Pulse Ox 97.8 F 86 20 156/72 H 97 06/01/18 08:24 06/01/18 08:49 06/01/18 08:24 06/01/18 08:49 06/01/18 08:24 - Medications Medications: Current Medications Acetaminophen (Tylenol 325mg Tab) 650 mg PO Q4 PRN PRN Reason: Pain, Mild (1-3) Albuterol Sulfate (Albuterol 0.083% Inhal Autumn (2.5 Mg/3 Ml) Ud) 2.5 mg INH RQID [facility] Last Admin: 06/01/18 08:25 Dose: 2.5 mg Alendronate Sodium (Fosamax) 70 mg PO Fr@0600 [facility] Last Admin: 05/29/18 06:54 Dose: 70 mg Amlodipine Besylate (Norvasc) 10 mg PO DAILY [facility] Last Admin: 06/01/18 08:49 Dose: 10 mg Aspirin (Aspirin Chewable) 81 mg PO DAILY [facility] Last Admin: 06/01/18 08:48 Dose: 81 mg Atorvastatin Calcium (Lipitor) 10 mg PO HS [facility] Last Admin: 05/31/18 21:05 Dose: 10 mg Carvedilol (Coreg) 3.125 mg PO Q12@0900,2100 [facility] Last Admin: 06/01/18 08:48 Dose: 3.125 mg Collagenase (Santyl) 1 applic TOP DAILY [facility] Last Admin: 06/01/18 08:51 Dose: Not Given Docusate Sodium (Colace) 100 mg PO BID [facility] Last Admin: 06/01/18 08:50 Dose: 100 mg Enalapril Maleate (Vasotec) 20 mg PO DAILY [facility] Last Admin: 06/01/18 08:51 Dose: 20 mg Enoxaparin Sodium (Lovenox) 40 mg SC DAILY [facility]; Protocol Ferrous Sulfate (Feosol) 325 mg PO TID [facility] Last Admin: 06/01/18 08:49 Dose: 325 mg Fluticasone Propionate (Flonase) 1 spr LUIS Q12 [facility] Last Admin: 06/01/18 08:50 Dose: 1 spr Furosemide (Lasix) 20 mg PO DAILY [facility] Last Admin: 05/25/18 08:32 Dose: 20 mg Guaifenesin (Mucinex La) 600 mg PO Q12 [facility] Last Admin: 05/31/18 21:28 Dose: 600 mg Hydrocortisone (Hydrocortisone 2.5%) 1 applic TOP BID [facility] Last Admin: 06/01/18 08:50 Dose: 1 applic Ipratropium [place] (Atrovent) 0.5 mg IH RQID [facility] Last Admin: 06/01/18 08:25 Dose: 0.5 mg Levalbuterol HCl (Xopenex) 0.63 mg INH RQ8 PRN PRN Reason: Wheezing Last Admin: 05/30/18 23:52 Dose: 0.63 mg Lorazepam (Ativan) 0.5 mg PO DAILY PRN PRN Reason: Anxiety Last Admin: 05/25/18 21:25 Dose: 0.5 mg Metformin HCl (Glucophage) 500 mg PO BID [facility] Last Admin: 06/01/18 08:49 Dose: 500 mg Montelukast Sodium (Singulair) 10 mg PO HS [facility] Last Admin: 05/31/18 21:05 Dose: 10 mg Multivitamins/Minerals (Therapeutic-M Tab) 1 tab PO DAILY [facility] Last Admin: 06/01/18 08:48 Dose: 1 tab Nystatin (Nystop Topical Powder) 1 applic TOP TID [facility] Last Admin: 06/01/18 08:48 Dose: 1 applic Pantoprazole Sodium (Protonix Ec Tab) 20 mg PO BID [facility] Last Admin: 06/01/18 08:49 Dose: 20 mg Paroxetine HCl (Paxil) 20 mg PO DAILY [facility] Last Admin: 06/01/18 08:48 Dose: 20 mg Simethicone (Mylicon Chew Tab) 80 mg PO Q8 PRN PRN Reason: Flatulence - Labs Labs: 05/30/18 06:29 06/01/18 09:38 - Constitutional Appears: No Acute Distress - Eye Exam Eye Exam: Conjunctival injection - ENT Exam ENT Exam: Mucous Membranes Moist - Respiratory Exam Respiratory Exam: NORMAL BREATHING PATTERN - Cardiovascular Exam Cardiovascular Exam: REGULAR RHYTHM. absent: Gallop, Rubs - GI/Abdominal Exam GI & Abdominal Exam: Soft, Normal Bowel Sounds - Extremities Exam Extremities Exam: absent: Calf Tenderness - Back Exam Back Exam: absent: CVA tenderness (L), CVA tenderness (R) - Neurological Exam Neurological Exam: Alert - Psychiatric Exam Psychiatric exam: Normal Affect - Skin Skin Exam: absent: Cyanosis Assessment and Plan (1) Hyponatremia Assessment & Plan: hyponatremia Pneumonia copd Fall, DM, HTN, hyperlipidemia, anemia CAD the plan serum sodium came up to 133 Monitor serum sodium not to rise more than 10 mEq in 24 hrs or so Status: Acute
[2018-06-01] MEDS: Enoxaparin 40 mg Syringe SC SCH (10:38)
--- NOTE | 2018-06-01 10:59 | CP.PCM.PN ---
Subjective - Date & Time of Evaluation Date of Evaluation: 06/01/18 Time of Evaluation: 10:58 - Subjective Subjective: Remains stable from a pulmonary point of view. Recent electrolyte abnormality noted. SpO2 remains >90% steadily while on oxygen. Have requested overnight recorded SpO2 on ROOM AIR. Objective - Vital Signs/Intake and Output Vital Signs (last 24 hours): Temp Pulse Resp BP Pulse Ox 97.8 F 86 20 156/72 H 97 06/01/18 08:24 06/01/18 08:49 06/01/18 08:24 06/01/18 08:49 06/01/18 08:24 - Medications Medications: Current Medications Acetaminophen (Tylenol 325mg Tab) 650 mg PO Q4 PRN PRN Reason: Pain, Mild (1-3) Albuterol Sulfate (Albuterol 0.083% Inhal Autumn (2.5 Mg/3 Ml) Ud) 2.5 mg INH RQID [facility] Last Admin: 06/01/18 08:25 Dose: 2.5 mg Alendronate Sodium (Fosamax) 70 mg PO Fr@0600 [facility] Last Admin: 05/29/18 06:54 Dose: 70 mg Amlodipine Besylate (Norvasc) 10 mg PO DAILY [facility] Last Admin: 06/01/18 08:49 Dose: 10 mg Aspirin (Aspirin Chewable) 81 mg PO DAILY [facility] Last Admin: 06/01/18 08:48 Dose: 81 mg Atorvastatin Calcium (Lipitor) 10 mg PO HS [facility] Last Admin: 05/31/18 21:05 Dose: 10 mg Carvedilol (Coreg) 3.125 mg PO Q12@0900,2100 [facility] Last Admin: 06/01/18 08:48 Dose: 3.125 mg Collagenase (Santyl) 1 applic TOP DAILY [facility] Last Admin: 06/01/18 08:51 Dose: Not Given Docusate Sodium (Colace) 100 mg PO BID [facility] Last Admin: 06/01/18 08:50 Dose: 100 mg Enalapril Maleate (Vasotec) 20 mg PO DAILY [facility] Last Admin: 06/01/18 08:51 Dose: 20 mg Enoxaparin Sodium (Lovenox) 40 mg SC DAILY [facility]; Protocol Ferrous Sulfate (Feosol) 325 mg PO TID [facility] Last Admin: 06/01/18 08:49 Dose: 325 mg Fluticasone Propionate (Flonase) 1 spr LUIS Q12 [facility] Last Admin: 06/01/18 08:50 Dose: 1 spr Furosemide (Lasix) 20 mg PO DAILY [facility] Last Admin: 05/25/18 08:32 Dose: 20 mg Guaifenesin (Mucinex La) 600 mg PO Q12 [facility] Last Admin: 05/31/18 21:28 Dose: 600 mg Hydrocortisone (Hydrocortisone 2.5%) 1 applic TOP BID [facility] Last Admin: 06/01/18 08:50 Dose: 1 applic Ipratropium [place] (Atrovent) 0.5 mg IH RQID [facility] Last Admin: 06/01/18 08:25 Dose: 0.5 mg Levalbuterol HCl (Xopenex) 0.63 mg INH RQ8 PRN PRN Reason: Wheezing Last Admin: 05/30/18 23:52 Dose: 0.63 mg Lorazepam (Ativan) 0.5 mg PO DAILY PRN PRN Reason: Anxiety Last Admin: 05/25/18 21:25 Dose: 0.5 mg Metformin HCl (Glucophage) 500 mg PO BID [facility] Last Admin: 06/01/18 08:49 Dose: 500 mg Montelukast Sodium (Singulair) 10 mg PO HS [facility] Last Admin: 05/31/18 21:05 Dose: 10 mg Multivitamins/Minerals (Therapeutic-M Tab) 1 tab PO DAILY [facility] Last Admin: 06/01/18 08:48 Dose: 1 tab Nystatin (Nystop Topical Powder) 1 applic TOP TID [facility] Last Admin: 06/01/18 08:48 Dose: 1 applic Pantoprazole Sodium (Protonix Ec Tab) 20 mg PO BID [facility] Last Admin: 06/01/18 08:49 Dose: 20 mg Paroxetine HCl (Paxil) 20 mg PO DAILY [facility] Last Admin: 06/01/18 08:48 Dose: 20 mg Simethicone (Mylicon Chew Tab) 80 mg PO Q8 PRN PRN Reason: Flatulence - Labs Labs: 05/30/18 06:29 06/01/18 09:38 Assessment and Plan (1) Pneumonia Status: Acute (2) Bronchial asthma Status: Chronic (3) Pleural effusion Status: Acute
--- NOTE | 2018-06-01 20:11 | CP.PCM.PN ---
Subjective - Date & Time of Evaluation Date of Evaluation: 06/01/18 Time of Evaluation: 22:22 - Subjective Subjective: Above noted Na+ 133 Objective - Vital Signs/Intake and Output Vital Signs (last 24 hours): Temp Pulse Resp BP Pulse Ox 98.1 F 82 20 131/54 L 99 06/01/18 15:52 06/01/18 15:52 06/01/18 15:52 06/01/18 15:52 06/01/18 15:52 - Medications Medications: Current Medications Acetaminophen (Tylenol 325mg Tab) 650 mg PO Q4 PRN PRN Reason: Pain, Mild (1-3) Albuterol Sulfate (Albuterol 0.083% Inhal Autumn (2.5 Mg/3 Ml) Ud) 2.5 mg INH RQID [facility] Last Admin: 06/01/18 19:04 Dose: 2.5 mg Alendronate Sodium (Fosamax) 70 mg PO Fr@0600 [facility] Last Admin: 05/29/18 06:54 Dose: 70 mg Amlodipine Besylate (Norvasc) 10 mg PO DAILY [facility] Last Admin: 06/01/18 08:49 Dose: 10 mg Aspirin (Aspirin Chewable) 81 mg PO DAILY [facility] Last Admin: 06/01/18 08:48 Dose: 81 mg Atorvastatin Calcium (Lipitor) 10 mg PO HS [facility] Last Admin: 05/31/18 21:05 Dose: 10 mg Carvedilol (Coreg) 3.125 mg PO Q12@0900,2100 [facility] Last Admin: 06/01/18 08:48 Dose: 3.125 mg Collagenase (Santyl) 1 applic TOP DAILY [facility] Last Admin: 06/01/18 08:51 Dose: Not Given Docusate Sodium (Colace) 100 mg PO BID [facility] Last Admin: 06/01/18 16:47 Dose: 100 mg Enalapril Maleate (Vasotec) 20 mg PO DAILY [facility] Last Admin: 06/01/18 08:51 Dose: 20 mg Enoxaparin Sodium (Lovenox) 40 mg SC DAILY [facility]; Protocol Last Admin: 06/01/18 10:38 Dose: 40 mg Ferrous Sulfate (Feosol) 325 mg PO TID [facility] Last Admin: 06/01/18 16:47 Dose: 325 mg Fluticasone Propionate (Flonase) 1 spr LUIS Q12 [facility] Last Admin: 06/01/18 08:50 Dose: 1 spr Furosemide (Lasix) 20 mg PO DAILY [facility] Last Admin: 05/25/18 08:32 Dose: 20 mg Guaifenesin (Mucinex La) 600 mg PO Q12 [facility] Last Admin: 06/01/18 10:39 Dose: 600 mg Hydrocortisone (Hydrocortisone 2.5%) 1 applic TOP BID [facility] Last Admin: 06/01/18 16:48 Dose: 1 applic Ipratropium [place] (Atrovent) 0.5 mg IH RQID [facility] Last Admin: 06/01/18 19:04 Dose: 0.5 mg Metformin HCl (Glucophage) 500 mg PO BID [facility] Last Admin: 06/01/18 16:47 Dose: 500 mg Montelukast Sodium (Singulair) 10 mg PO HS [facility] Last Admin: 05/31/18 21:05 Dose: 10 mg Multivitamins/Minerals (Therapeutic-M Tab) 1 tab PO DAILY [facility] Last Admin: 06/01/18 08:48 Dose: 1 tab Nystatin (Nystop Topical Powder) 1 applic TOP TID [facility] Last Admin: 06/01/18 16:49 Dose: 1 applic Pantoprazole Sodium (Protonix Ec Tab) 20 mg PO BID [facility] Last Admin: 06/01/18 16:47 Dose: 20 mg Paroxetine HCl (Paxil) 20 mg PO DAILY [facility] Last Admin: 06/01/18 08:48 Dose: 20 mg Simethicone (Mylicon Chew Tab) 80 mg PO Q8 PRN PRN Reason: Flatulence - Labs Labs: 05/30/18 06:29 06/01/18 09:38 - Respiratory Exam Respiratory Exam: NORMAL BREATHING PATTERN - Cardiovascular Exam Cardiovascular Exam: Tachycardia, REGULAR RHYTHM - GI/Abdominal Exam GI & Abdominal Exam: Normal Bowel Sounds Assessment and Plan - Assessment and Plan (Free Text) Assessment: Deconditioning Rehab S/P Acute ant wall KS + CE CT scan CHF O2 JAYESH B-annia Nitrates ASA Lovenox Cardiology Echo 2017 LV fxn good Fall etiol?? 2 to above? COPD R pleural effusion ? 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 Nephrology Samsca Hx rectal prolapse Surgery Hx of chronic anxiety Ativan
[2018-06-01 20:30] VITALS: TEMP 97.7
[2018-06-02 07:06] LABS: HEMOGLOBIN 10.7 g/dL (12.0-16.0); MEAN CELL VOLUME 98.9 fl (81.0-99.0); MEAN CORPUSCULAR HEMOGLOBIN 33.3 pg (27.0-31.0); MEAN CORPUSCULAR HGB CONC 33.6 g/dL (33.0-37.0); RBC 3.23 Mil/uL (3.80-5.20); RED CELL DISTRIBUTION WIDTH 13.8 % (11.5-14.5); WHITE BLOOD COUNT 7.1 K/uL (4.8-10.8)
[2018-06-02 07:21] LABS: ALB/GLOB RATIO 1.4 (1.0-2.1); ALBUMIN 3.9 g/dL (3.5-5.0); ALT/SGPT 35 U/L (9-52); AST/SGOT 29 U/L (14-36); BLOOD UREA NITROGEN 18 mg/dl (7-17); CALCIUM 8.9 mg/dL (8.4-10.2); GFR NON-AFRICAN AMERICAN > 60
--- NOTE | 2018-06-02 08:02 | CP.PCM.PN ---
Subjective - Date & Time of Evaluation Date of Evaluation: 06/02/18 Time of Evaluation: 08:00 - Subjective Subjective: Podiatry progress note for Dr. You 88F seen and evaluated at bedside with Dr. You. Seen resting comfortably. Denies any acute events overnight and is set to go home today. She states her son is picking her up in the afternoon. Denies N/V/F/C/SOB/CP and has no other pedal complaints. Objective - Vital Signs/Intake and Output Vital Signs (last 24 hours): Temp Pulse Resp BP Pulse Ox 97.7 F 80 20 134/66 97 06/01/18 20:29 06/01/18 21:42 06/01/18 20:29 06/01/18 21:42 06/01/18 20:29 - Medications Medications: Current Medications Acetaminophen (Tylenol 325mg Tab) 650 mg PO Q4 PRN PRN Reason: Pain, Mild (1-3) Albuterol Sulfate (Albuterol 0.083% Inhal Autumn (2.5 Mg/3 Ml) Ud) 2.5 mg INH RQID [facility] Last Admin: 06/01/18 19:04 Dose: 2.5 mg Alendronate Sodium (Fosamax) 70 mg PO Fr@0600 [facility] Last Admin: 05/29/18 06:54 Dose: 70 mg Amlodipine Besylate (Norvasc) 10 mg PO DAILY [facility] Last Admin: 06/01/18 08:49 Dose: 10 mg Aspirin (Aspirin Chewable) 81 mg PO DAILY [facility] Last Admin: 06/01/18 08:48 Dose: 81 mg Atorvastatin Calcium (Lipitor) 10 mg PO HS [facility] Last Admin: 06/01/18 21:42 Dose: 10 mg Carvedilol (Coreg) 3.125 mg PO Q12@0900,2100 [facility] Last Admin: 06/01/18 21:42 Dose: 3.125 mg Collagenase (Santyl) 1 applic TOP DAILY [facility] Last Admin: 06/01/18 08:51 Dose: Not Given Docusate Sodium (Colace) 100 mg PO BID [facility] Last Admin: 06/01/18 16:47 Dose: 100 mg Enalapril Maleate (Vasotec) 20 mg PO DAILY [facility] Last Admin: 06/01/18 08:51 Dose: 20 mg Enoxaparin Sodium (Lovenox) 40 mg SC DAILY [facility]; Protocol Last Admin: 06/01/18 10:38 Dose: 40 mg Ferrous Sulfate (Feosol) 325 mg PO TID [facility] Last Admin: 06/01/18 16:47 Dose: 325 mg Fluticasone Propionate (Flonase) 1 spr LUIS Q12 [facility] Last Admin: 06/01/18 21:40 Dose: 1 spr Furosemide (Lasix) 20 mg PO DAILY [facility] Last Admin: 05/25/18 08:32 Dose: 20 mg Guaifenesin (Mucinex La) 600 mg PO Q12 [facility] Last Admin: 06/01/18 21:42 Dose: 600 mg Hydrocortisone (Hydrocortisone 2.5%) 1 applic TOP BID [facility] Last Admin: 06/01/18 16:48 Dose: 1 applic Ipratropium [place] (Atrovent) 0.5 mg IH RQID [facility] Last Admin: 06/01/18 19:04 Dose: 0.5 mg Metformin HCl (Glucophage) 500 mg PO BID [facility] Last Admin: 06/01/18 16:47 Dose: 500 mg Montelukast Sodium (Singulair) 10 mg PO HS [facility] Last Admin: 06/01/18 21:42 Dose: 10 mg Multivitamins/Minerals (Therapeutic-M Tab) 1 tab PO DAILY [facility] Last Admin: 06/01/18 08:48 Dose: 1 tab Nystatin (Nystop Topical Powder) 1 applic TOP TID [facility] Last Admin: 06/01/18 16:49 Dose: 1 applic Pantoprazole Sodium (Protonix Ec Tab) 20 mg PO BID [facility] Last Admin: 06/01/18 16:47 Dose: 20 mg Paroxetine HCl (Paxil) 20 mg PO DAILY [facility] Last Admin: 06/01/18 08:48 Dose: 20 mg Simethicone (Mylicon Chew Tab) 80 mg PO Q8 PRN PRN Reason: Flatulence - Labs Labs: 06/02/18 06:30 06/02/18 06:30 - Constitutional Appears: Well, Non-toxic, No Acute Distress - Head Exam Head Exam: ATRAUMATIC, NORMOCEPHALIC - Extremities Exam Additional comments: Right lower extremity exam: vascular: dp/pt pulses palpable, CFT <3 secs x 5, Tg warm to cool, periwound erythema noted, no erythema otherwise, no edema noted neuro: mildly diminished gross and protective sensation derm: right medial malleolus wound with fibrogranular base noted measuring approimately 0.9cm x 0.9cm, does not probe, periwound erythema, no drainage appreciated, no malodor, no clinical signs of infection ortho: mild pain with palpation of the wound site - Neurological Exam Neurological Exam: Alert, Awake, Oriented x3 - Psychiatric Exam Psychiatric exam: Normal Affect, Normal Mood Assessment and Plan - Assessment and Plan (Free Text) Assessment: 88F with stable right ankle pressure ulcer Plan: Patient seen and evaluated with Dr. You Afebrile, absent leukocytosis Wound cleansed with sterile saline and dressed with santyl, DSD, and JAYESH Stable for discharge from podiatry standpoint Leave dressing clean dry and intact until appointment with Dr. You as outpatient, will make potential changes to dressing upon followup Patient demonstrated understanding Son will call and make appointment for Tuesday 06/05
[2018-06-02] MEDS: Multivitamin With Minerals Tab PO SCH (08:30)
[2018-06-02] MEDS: Enoxaparin 40 mg Syringe SC SCH (08:30)
[2018-06-02] MEDS: guaiFENesin 600 mg ER Tab PO SCH (08:30)
[2018-06-02] MEDS: Pantoprazole 20 mg EC Tab PO SCH (08:30)
[2018-06-02 08:39] VITALS: PULSE 76
[2018-06-02 09:00] VITALS: BP 142/66; O2SAT 94
--- NOTE | 2018-06-02 10:30 | CP.PCM.PN ---
Subjective - Date & Time of Evaluation Date of Evaluation: 06/02/18 Time of Evaluation: 10:21 - Subjective Subjective: Interim events reviewed. Remains stable clinically. Overnight SpO2 recording reviewed. 3 desaturation events noted, the longest lasting only 32 seconds. The other two events were only 12 seconds each. She would not qualify for home oxygen with this study. Should continue aerosol therapy with nebulized albuterol plus ipratropium TID/QI D. Diagnosis of Asthma in the past, but there is likely and element of cigarette related COPD as well. From a respiratory standpoint she is stable for discharge to home today. Objective - Vital Signs/Intake and Output Vital Signs (last 24 hours): Temp Pulse Resp BP Pulse Ox 97.7 F 76 20 142/66 94 L 06/02/18 08:59 06/02/18 08:59 06/02/18 08:59 06/02/18 08:59 06/02/18 08:59 - Medications Medications: Current Medications Acetaminophen (Tylenol 325mg Tab) 650 mg PO Q4 PRN PRN Reason: Pain, Mild (1-3) Albuterol Sulfate (Albuterol 0.083% Inhal Autumn (2.5 Mg/3 Ml) Ud) 2.5 mg INH RQID [facility] Last Admin: 06/01/18 19:04 Dose: 2.5 mg Alendronate Sodium (Fosamax) 70 mg PO Fr@0600 [facility] Last Admin: 05/29/18 06:54 Dose: 70 mg Amlodipine Besylate (Norvasc) 10 mg PO DAILY [facility] Last Admin: 06/02/18 08:32 Dose: 10 mg Aspirin (Aspirin Chewable) 81 mg PO DAILY [facility] Last Admin: 06/02/18 08:32 Dose: 81 mg Atorvastatin Calcium (Lipitor) 10 mg PO HS [facility] Last Admin: 06/01/18 21:42 Dose: 10 mg Carvedilol (Coreg) 3.125 mg PO Q12@0900,2100 [facility] Last Admin: 06/02/18 08:31 Dose: 3.125 mg Collagenase (Santyl) 1 applic TOP DAILY [facility] Last Admin: 06/01/18 08:51 Dose: Not Given Docusate Sodium (Colace) 100 mg PO BID [facility] Last Admin: 06/02/18 08:30 Dose: 100 mg Enalapril Maleate (Vasotec) 20 mg PO DAILY [facility] Last Admin: 06/01/18 08:51 Dose: 20 mg Enoxaparin Sodium (Lovenox) 40 mg SC DAILY [facility]; Protocol Last Admin: 06/02/18 08:30 Dose: 40 mg Ferrous Sulfate (Feosol) 325 mg PO TID [facility] Last Admin: 06/02/18 08:31 Dose: 325 mg Fluticasone Propionate (Flonase) 1 spr LUIS Q12 [facility] Last Admin: 06/02/18 08:36 Dose: 1 spr Furosemide (Lasix) 20 mg PO DAILY [facility] Last Admin: 05/25/18 08:32 Dose: 20 mg Guaifenesin (Mucinex La) 600 mg PO Q12 [facility] Last Admin: 06/02/18 08:30 Dose: 600 mg Hydrocortisone (Hydrocortisone 2.5%) 1 applic TOP BID [facility] Last Admin: 06/02/18 08:37 Dose: 1 applic Ipratropium [place] (Atrovent) 0.5 mg IH RQID [facility] Last Admin: 06/01/18 19:04 Dose: 0.5 mg Metformin HCl (Glucophage) 500 mg PO BID [facility] Last Admin: 06/02/18 08:31 Dose: 500 mg Montelukast Sodium (Singulair) 10 mg PO HS [facility] Last Admin: 06/01/18 21:42 Dose: 10 mg Multivitamins/Minerals (Therapeutic-M Tab) 1 tab PO DAILY [facility] Last Admin: 06/02/18 08:30 Dose: 1 tab Nystatin (Nystop Topical Powder) 1 applic TOP TID [facility] Last Admin: 06/02/18 08:35 Dose: 1 applic Pantoprazole Sodium (Protonix Ec Tab) 20 mg PO BID [facility] Last Admin: 06/02/18 08:30 Dose: 20 mg Paroxetine HCl (Paxil) 20 mg PO DAILY [facility] Last Admin: 06/02/18 08:31 Dose: 20 mg Simethicone (Mylicon Chew Tab) 80 mg PO Q8 PRN PRN Reason: Flatulence - Labs Labs: 06/02/18 06:30 06/02/18 06:30 Assessment and Plan (1) Pneumonia Status: Acute (2) Bronchial asthma Status: Chronic (3) Pleural effusion Status: Acute
[2018-06-02] MEDS: Santyl Collagenase OINTMENT TOP SCH (12:29)
--- NOTE | 2018-06-02 13:57 | CP.PCM.PN ---
Subjective - Date & Time of Evaluation Date of Evaluation: 06/02/18 Time of Evaluation: 13:55 - Subjective Subjective: sitting up in the chair was a chronic shortness of breath Vital sign noted Objective - Vital Signs/Intake and Output Vital Signs (last 24 hours): Temp Pulse Resp BP Pulse Ox 97.7 F 76 20 142/66 94 L 06/02/18 08:59 06/02/18 08:59 06/02/18 08:59 06/02/18 08:59 06/02/18 08:59 - Medications Medications: Current Medications Acetaminophen (Tylenol 325mg Tab) 650 mg PO Q4 PRN PRN Reason: Pain, Mild (1-3) Albuterol Sulfate (Albuterol 0.083% Inhal Autumn (2.5 Mg/3 Ml) Ud) 2.5 mg INH RQID [facility] Last Admin: 06/01/18 19:04 Dose: 2.5 mg Alendronate Sodium (Fosamax) 70 mg PO Fr@0600 [facility] Last Admin: 05/29/18 06:54 Dose: 70 mg Amlodipine Besylate (Norvasc) 10 mg PO DAILY [facility] Last Admin: 06/02/18 08:32 Dose: 10 mg Aspirin (Aspirin Chewable) 81 mg PO DAILY [facility] Last Admin: 06/02/18 08:32 Dose: 81 mg Atorvastatin Calcium (Lipitor) 10 mg PO HS [facility] Last Admin: 06/01/18 21:42 Dose: 10 mg Carvedilol (Coreg) 3.125 mg PO Q12@0900,2100 [facility] Last Admin: 06/02/18 08:31 Dose: 3.125 mg Collagenase (Santyl) 1 applic TOP DAILY [facility] Last Admin: 06/02/18 12:29 Dose: Not Given Docusate Sodium (Colace) 100 mg PO BID [facility] Last Admin: 06/02/18 08:30 Dose: 100 mg Enalapril Maleate (Vasotec) 20 mg PO DAILY [facility] Last Admin: 06/02/18 09:00 Dose: 20 mg Enoxaparin Sodium (Lovenox) 40 mg SC DAILY [facility]; Protocol Last Admin: 06/02/18 08:30 Dose: 40 mg Ferrous Sulfate (Feosol) 325 mg PO TID [facility] Last Admin: 06/02/18 12:28 Dose: 325 mg Fluticasone Propionate (Flonase) 1 spr LUIS Q12 [facility] Last Admin: 06/02/18 08:36 Dose: 1 spr Furosemide (Lasix) 20 mg PO DAILY [facility] Last Admin: 05/25/18 08:32 Dose: 20 mg Guaifenesin (Mucinex La) 600 mg PO Q12 [facility] Last Admin: 06/02/18 08:30 Dose: 600 mg Hydrocortisone (Hydrocortisone 2.5%) 1 applic TOP BID [facility] Last Admin: 06/02/18 08:37 Dose: 1 applic Ipratropium [place] (Atrovent) 0.5 mg IH RQID [facility] Last Admin: 06/01/18 19:04 Dose: 0.5 mg Metformin HCl (Glucophage) 500 mg PO BID [facility] Last Admin: 06/02/18 08:31 Dose: 500 mg Montelukast Sodium (Singulair) 10 mg PO HS [facility] Last Admin: 06/01/18 21:42 Dose: 10 mg Multivitamins/Minerals (Therapeutic-M Tab) 1 tab PO DAILY [facility] Last Admin: 06/02/18 08:30 Dose: 1 tab Nystatin (Nystop Topical Powder) 1 applic TOP TID [facility] Last Admin: 06/02/18 12:29 Dose: 1 applic Pantoprazole Sodium (Protonix Ec Tab) 20 mg PO BID [facility] Last Admin: 06/02/18 08:30 Dose: 20 mg Paroxetine HCl (Paxil) 20 mg PO DAILY [facility] Last Admin: 06/02/18 08:31 Dose: 20 mg Simethicone (Mylicon Chew Tab) 80 mg PO Q8 PRN PRN Reason: Flatulence - Labs Labs: 06/02/18 06:30 06/02/18 06:30 - Constitutional Appears: No Acute Distress - Eye Exam Eye Exam: Conjunctival injection - ENT Exam ENT Exam: Mucous Membranes Moist - Respiratory Exam Respiratory Exam: Rhonchi. absent: Chest Wall Tenderness - Cardiovascular Exam Cardiovascular Exam: absent: Gallop, JVD, Rubs - GI/Abdominal Exam GI & Abdominal Exam: Normal Bowel Sounds - Extremities Exam Extremities Exam: absent: Calf Tenderness - Back Exam Back Exam: absent: CVA tenderness (L), CVA tenderness (R) - Neurological Exam Neurological Exam: Alert - Psychiatric Exam Psychiatric exam: Normal Affect - Skin Skin Exam: absent: Cyanosis Assessment and Plan (1) Hyponatremia Assessment & Plan: hyponatremia Pneumonia copd Fall, DM, HTN, hyperlipidemia, anemia CAD the plan serum sodium came up to 134 Monitor serum sodium not to rise more than 9 mEq in 24 hrs or so if serum sodium to drop again she will need more [place] Status: Acute
--- NOTE | 2018-06-02 21:37 | CP.PCM.PN ---
Subjective - Date & Time of Evaluation Date of Evaluation: 06/02/18 Time of Evaluation: 22:22 - Subjective Subjective: Doing well Objective - Vital Signs/Intake and Output Vital Signs (last 24 hours): Temp Pulse Resp BP Pulse Ox 97.7 F 76 20 142/66 94 L 06/02/18 08:59 06/02/18 08:59 06/02/18 08:59 06/02/18 08:59 06/02/18 08:59 - Labs Labs: 06/02/18 06:30 06/02/18 06:30 - Respiratory Exam Respiratory Exam: NORMAL BREATHING PATTERN - Cardiovascular Exam Cardiovascular Exam: REGULAR RHYTHM - GI/Abdominal Exam GI & Abdominal Exam: Normal Bowel Sounds Assessment and Plan - Assessment and Plan (Free Text) Assessment: Deconditioning Rehab S/P Acute ant wall WA + CE CT scan CHF O2 JAYESH B-annia Nitrates ASA Lovenox Cardiology Echo LV fxn good Fall etiol?? 2 to above? COPD R pleural effusion ? 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 Nephrology Samsca Hx rectal prolapse Surgery Hx of chronic anxiety Ativan
== END 2018-06-02 15:00 | disposition home or self-care (01) | DRG 280 ==
LOC: H.TCU 17:34
PROVIDERS: ADMIT Family Medicine Geriatric Medicine; ATTEND Family Medicine Geriatric Medicine
PROC: F08Z0FZ Bathing/Showering Techniques Treatment using Assistive, Adaptive, Supportive or Protective Equipment (ICD-10-PCS; principal; 2018-05-19)
PROC: F08Z1FZ Dressing Techniques Treatment using Assistive, Adaptive, Supportive or Protective Equipment (ICD-10-PCS; 2018-05-19)
PROC: F07L6GZ Therapeutic Exercise Treatment of Musculoskeletal System - Lower Back / Lower Extremity using Aerobic Endurance and Conditioning Equipment (ICD-10-PCS; 2018-05-19)
PROC: F07Z9FZ Gait Training/Functional Ambulation Treatment using Assistive, Adaptive, Supportive or Protective Equipment (ICD-10-PCS; 2018-05-19)
PROC: F07Z8FZ Transfer Training Treatment using Assistive, Adaptive, Supportive or Protective Equipment (ICD-10-PCS; 2018-05-19)
DX: I21.09 ST elevation (STEMI) myocardial infarction involving other coronary artery of anterior wall (principal); J18.9 Pneumonia, unspecified organism; E22.2 Syndrome of inappropriate secretion of antidiuretic hormone; J44.0 Chronic obstructive pulmonary disease with (acute) lower respiratory infection; E11.9 Type 2 diabetes mellitus without complications; Z87.891 Personal history of nicotine dependence; I11.0 Hypertensive heart disease with heart failure; I50.9 Heart failure, unspecified; E78.00 Pure hypercholesterolemia, unspecified; F41.9 Anxiety disorder, unspecified; K64.8 Other hemorrhoids; E87.8 Other disorders of electrolyte and fluid balance, not elsewhere classified; E78.5 Hyperlipidemia, unspecified; D64.9 Anemia, unspecified; I25.10 Atherosclerotic heart disease of native coronary artery without angina pectoris; L89.519 Pressure ulcer of right ankle, unspecified stage

== ENCOUNTER 2018-06-07 21:12 | Emergency (ER) | payer MEDICARE, MEDICAID ==
[2018-06-07 21:13] VITALS: BMI 27.4
[2018-06-07 21:15] VITALS: TEMP 97.9; O2SAT 98
[2018-06-07] MEDS ORDERED: Lidocaine/Epi 1% 1:100000 20 ML IJ ONE (21:46)
[2018-06-07] MEDS ORDERED: Lidocaine 1% w Epi 1:100,000 Inj ONE (22:21)
[2018-06-07] MEDS ORDERED: Tetanus/Diphtheria Toxoids 0.5 ml Syringe IM ONE (22:44)
--- NOTE | 2018-06-07 23:39 | ED PDOC ---
HPI: Trauma/Fall - HPI Time Seen by Provider: 06/07/18 21:24 Chief Complaint (Nursing): Trauma Chief Complaint (Provider): fall with head trauma History Per: Patient, Family History/Exam Limitations: no limitations Onset/Duration Of Symptoms: Hrs Location Of Injury: Right: Ankle, Posterior: Head Pain Scale Rating Of: 2 Associated Symptoms: denies: Dizziness, Dazed, LOC Additional Complaint(s): 88 y/o F with HTN, HL, CAD s/p CO, CHF and recent admission for sepsis discharged on 06/02/18 who presents after fall at home with head trauma. Pt states that she was attempting to close the closet door when she lost her balance and fell onto the back of her head sustaining a laceration. She denies dizziness or palpiations prior to fall. Denies LOC, dizziness, DANGELO or back or neck pain since fall. Further denies visual changes or trauma to any other part of her body. She is not sure when her last tetanus booster was given. - Fall Fall:Prior To Injury: Lost Balance. denies: Passed Out, Almost Passed Out, [place] Lightheaded Past Medical History Reviewed: Historical Data, Nursing Documentation, Vital Signs Vital Signs: Last Vital Signs Temp 97.9 F 06/07/18 21:15 Pulse 63 06/07/18 21:15 Resp 16 06/07/18 21:15 BP 147/60 06/07/18 21:15 Pulse Ox 98 06/07/18 21:15 - Medical History PMH: Anxiety, Asthma, Bronchitis, CAD, CHF, COPD, Depression, Fractures, HTN, Hypercholesterolemia, Paranoia Denies: Alzheimer's Disease, Anemia, Arthritis, Atrial Fibrillation, Bipolar Disorder, Cardia Arrhythmia, Crohn's Disease, Dementia, Diverticulitis, Emphysema, Gastritis, Gall Bladder Disease, HIV, Hyperthyroidism, Hypothyroidism, Kidney Stones, Migraine, Mitral Valve Prolapse, Multiple Sclerosis, Osteoporosis, Pancreatitis, Parkinson's Disease, Peripheral Edema, Pneumonia, Post Traumatic Stress Disorder, Pulmonary Embolism, Chronic Kidney Disease, Rheumatoid Arthritis, Schizophrenia, Seizures, Sickle Cell Disease, Sexually Transmitted Disease, Sleep Apnea, TIA - Surgical History Surgical History: Denies: Appendectomy, CABG, Carotid Endarterectomy, Cholecystectomy, Coronary Stent, Pacemaker, Tonsillectomy - Family History Family History: States: Unknown Family Hx - Immunization History Hx Tetanus Toxoid Vaccination: No (pt unsure when last booster was given) - Home Medications Home Medications: Ambulatory Orders Medication Instructions Recorded Alendronate [Fosamax] 70 mg PO FR 01/20/17 Carvedilol [Coreg] 3.125 mg PO Q12H 01/20/17 Docusate [Colace] 100 mg PO BID 01/20/17 Enalapril Maleate [Vasotec] 20 mg PO DAILY 01/20/17 Ferrous Sulfate [Ferosul] 325 mg PO TID 01/20/17 LORazepam [Ativan] 0.5 mg PO DAILY 01/20/17 Montelukast [Singulair] 10 mg PO HS 01/20/17 Multivitamin [Multi-Vitamin Daily] 1 tab PO DAILY 01/20/17 Omeprazole 20 mg PO BID 01/20/17 PARoxetine [Paxil] 20 mg PO DAILY 01/20/17 metFORMIN [glucOPHAGE] 500 mg PO BID 01/20/17 Aspirin [Aspirin Chewable] 81 mg PO DAILY 01/24/17 Albuterol/Ipratropium [Duoneb 3 3 ml IH Q12 05/14/18 mg/0.5 mg (3 ml) UD] Atorvastatin [Lipitor] 10 mg PO HS 05/14/18 Budesonide [Pulmicort Respules] 2 ml IH Q12 05/14/18 Azithromycin 500mg/250ML NS 500 mg IV Q24H #7 bag 05/19/18 [Zithromax 500mg in NS [employer]] Furosemide [Lasix] 20 mg PO DAILY tab 05/19/18 Ipratropium 0.02% [Atrovent] 0.5 mg IH RQ6 neb 05/19/18 Levalbuterol [Xopenex] 0.63 mg INH RQ8 PRN neb 05/19/18 amLODIPine [Norvasc] 5 mg PO DAILY tab 05/19/18 cefTRIAXone 1 gm [Rocephin 1 gram 1 gm IVPB DAILY #7 bag 05/19/18 IVPB] guaiFENesin [Mucinex LA] 600 mg PO Q12 tab 05/19/18 Acetaminophen [Tylenol 325mg tab] 650 mg PO Q6 PRN 5 Days tab 06/08/18 - Allergies Allergies/Adverse Reactions: Allergies Allergy/AdvReac Type Severity Reaction Status Date / Time No Known Allergies Allergy Verified 05/19/18 14:34 Review of Systems Musculoskeletal: Negative for: Neck Pain, Back Pain Neurological: Negative for: Weakness, Numbness, Change in Speech, Confusion, Headache Physical Exam - Reviewed Nursing Documentation Reviewed: Yes Vital Signs Reviewed: Yes - Physical Exam Appears: Positive for: No Acute Distress Head Exam: Negative for: ATRAUMATIC (+ approx 3 - 3.5cm linear laceration on posterolateral scalp on Left w/ minimal bleeding. No debris noted, clean borders. ) Skin: Positive for: Normal Color Eye Exam: Positive for: EOMI, PERRL Neck: Positive for: Painless ROM, Supple Cardiovascular/Chest: Positive for: Regular Rate, Rhythm Respiratory: Positive for: Normal Breath Sounds Gastrointestinal/Abdominal: Positive for: Normal Exam Back: Positive for: Normal Inspection. Negative for: Vertebral Tenderness, Decreased ROM Extremity: Positive for: Normal ROM Neurologic/Psych: Positive for: Alert, Oriented, Other (normal proprioception). Negative for: Motor/Sensory Deficits (strength = in B/L upper extremities, sensation intact B/L upper and lower), Aphasia, Facial Droop - ECG O2 Sat by Pulse Oximetry: 98 Medical Decision Making Medical Decision Making: Scalp laceration repair (see procedure note) Tetanus vaccine Head CT w/o contrast Head CT: 1. Age appropriate cerebellar and cerebral atrophy. 2. Mild chronic microvascular disease. 3. No evidence of acute intracranial pathology. Return instructions provided. Pt stable for d/c home. Procedures - Time-Out Site of Procedure: scalp Correct Patient (with visual ID + MR# on ID Band): Yes Correct Procedure: Yes - Laceration/Wound Repair Posterior Head Wound's Depth, Shape: superficial, linear Wound Explored: no foreign body removed Irrigated w/ Saline (ccs): 200 Betadine Prep?: Yes Anesthesia: Lidocaine w/ Epi Wound Repaired With: Matthew Number of Sutures: 5 (matthew) Layer Closure?: No Wound Complexity: Simple Sterile Dressing Applied?: No Disposition - Clinical Impression Clinical Impression: Occipital scalp laceration - Patient ED Disposition Is Patient to be Admitted: No Counseled Patient/Family Regarding: Studies Performed, Diagnosis, Need For Followup - Disposition Referrals: Renny Patel MD [Family Provider] - Disposition: Routine/Home Disposition Time: 00:43 Condition: STABLE Additional Instructions: Keep area dry for 24hrs then wash gently with soap and water. [place] to be removed in 7 days either by your primary care doctor or return to ER for removal. Tylenol or Ibuprofen for pain. Return to ER if you develop visual changes, dizziness, severe DANGELO. Prescriptions: Acetaminophen [Tylenol 325mg tab] 650 mg PO Q6 PRN 5 Days tab PRN Reason: Pain, Moderate (4-7) Instructions: Laceration Repair With [place] (DC) Forms: [facility] (Dominican) Print Language: YEMENI
[2018-06-08 00:29] VITALS: BP 140/60; PULSE 72; RESP 18
--- NOTE | 2018-06-08 11:15 | CT ---
Date of service: 06/07/2018 PROCEDURE: CT HEAD WITHOUT CONTRAST. HISTORY: fall onto back of head COMPARISON: 05/14/2018. CT head TECHNIQUE: Axial computed tomography images were obtained through the head/brain without intravenous contrast. Supplemental Coronal and Sagittal projections created and reviewed. Radiation dose: Total exam DLP = 891.50 mGy-cm. This CT exam was performed using one or more of the following dose reduction techniques: Automated exposure control, adjustment of the mA and/or kV according to patient size, and/or use of iterative reconstruction technique. FINDINGS: HEMORRHAGE: No intracranial hemorrhage. BRAIN: No mass effect or edema. Cortical and cerebellar atrophy, periventricular small vessel disease. VENTRICLES: Unremarkable. No hydrocephalus. CALVARIUM: Unremarkable. PARANASAL SINUSES: Unremarkable as visualized. No significant inflammatory changes. MASTOID AIR CELLS: Unremarkable as visualized. No inflammatory changes. OTHER FINDINGS: None. IMPRESSION: No acute intracranial abnormalities. No significant findings to account for the clinical presentation. No significant interval change compared to the prior examination(s). Concordant results (preliminary interpretation) provided by [employer]. Procedure Completed: 23:21 Preliminary Report: Dictated and Authenticated: 00:32 Final Interpretation: 11:12. June 08, 2018
== END 2018-06-08 00:52 | disposition home or self-care (01) ==
LOC: H.ER 21:12
DX: S01.01XA Laceration without foreign body of scalp, initial encounter (principal); W19.XXXA Unspecified fall, initial encounter; Y92.89 Other specified places as the place of occurrence of the external cause; E78.00 Pure hypercholesterolemia, unspecified; I11.0 Hypertensive heart disease with heart failure; I25.10 Atherosclerotic heart disease of native coronary artery without angina pectoris; Z79.84 Long term (current) use of oral hypoglycemic drugs

== ENCOUNTER 2018-06-13 11:48 | Inpatient (IN) | payer MEDICARE, MEDICAID ==
[2018-06-13 11:48] VITALS: BMI 27.4
--- NOTE | 2018-06-13 13:19 | ED PDOC ---
HPI: General Adult Time Seen by Provider: 06/13/18 12:04 Chief Complaint (Nursing): GI Problem Additional Complaint(s): 88 year old female with a history of hemorrhoids presents to the ED due to bloody bowel movement. Of note, patient was seen here on 06/07/18 for a head injury and has an appointment with her PMD on Friday to have them removed. No further complaints PMD: Dr. Patel Past Medical History Reviewed: Historical Data Vital Signs: Last Vital Signs Temp 97.4 F L 06/13/18 11:53 Pulse 73 06/13/18 11:53 Resp 18 06/13/18 11:53 BP 184/89 H 06/13/18 11:53 Pulse Ox 100 06/13/18 11:53 - Medical History PMH: Anxiety, Asthma, Bronchitis, CAD, CHF, COPD, Depression, Fractures, HTN, Hypercholesterolemia, Paranoia Denies: Alzheimer's Disease, Anemia, Arthritis, Atrial Fibrillation, Bipolar Disorder, Cardia Arrhythmia, Crohn's Disease, Dementia, Diverticulitis, Emphysema, Gastritis, Gall Bladder Disease, HIV, Hyperthyroidism, Hypothyroidism, Kidney Stones, Migraine, Mitral Valve Prolapse, Multiple Sclerosis, Osteoporosis, Pancreatitis, Parkinson's Disease, Peripheral Edema, Pneumonia, Post Traumatic Stress Disorder, Pulmonary Embolism, Chronic Kidney Disease, Rheumatoid Arthritis, Schizophrenia, Seizures, Sickle Cell Disease, Sexually Transmitted Disease, Sleep Apnea, TIA - Surgical History Surgical History: Denies: Appendectomy, CABG, Carotid Endarterectomy, Cholecystectomy, Coronary Stent, Pacemaker, Tonsillectomy - Family History Family History: States: Unknown Family Hx - Immunization History Hx Tetanus Toxoid Vaccination: No (pt unsure when last booster was given) - Home Medications Home Medications: Ambulatory Orders Medication Instructions Recorded Alendronate [Fosamax] 70 mg PO FR 01/20/17 Carvedilol [Coreg] 3.125 mg PO Q12H 01/20/17 Docusate [Colace] 100 mg PO BID 01/20/17 Enalapril Maleate [Vasotec] 20 mg PO DAILY 01/20/17 Ferrous Sulfate [Ferosul] 325 mg PO TID 01/20/17 LORazepam [Ativan] 0.5 mg PO DAILY 01/20/17 Montelukast [Singulair] 10 mg PO HS 01/20/17 Multivitamin [Multi-Vitamin Daily] 1 tab PO DAILY 01/20/17 Omeprazole 20 mg PO BID 01/20/17 PARoxetine [Paxil] 20 mg PO DAILY 01/20/17 metFORMIN [glucOPHAGE] 500 mg PO BID 01/20/17 Aspirin [Aspirin Chewable] 81 mg PO DAILY 01/24/17 Albuterol/Ipratropium [Duoneb 3 3 ml IH Q12 05/14/18 mg/0.5 mg (3 ml) UD] Atorvastatin [Lipitor] 10 mg PO HS 05/14/18 Budesonide [Pulmicort Respules] 2 ml IH Q12 05/14/18 Azithromycin 500mg/250ML NS 500 mg IV Q24H #7 bag 05/19/18 [Zithromax 500mg in NS [employer]] Furosemide [Lasix] 20 mg PO DAILY tab 05/19/18 Ipratropium 0.02% [Atrovent] 0.5 mg IH RQ6 neb 05/19/18 Levalbuterol [Xopenex] 0.63 mg INH RQ8 PRN neb 05/19/18 amLODIPine [Norvasc] 5 mg PO DAILY tab 05/19/18 cefTRIAXone 1 gm [Rocephin 1 gram 1 gm IVPB DAILY #7 bag 05/19/18 IVPB] guaiFENesin [Mucinex LA] 600 mg PO Q12 tab 05/19/18 Acetaminophen [Tylenol 325mg tab] 650 mg PO Q6 PRN 5 Days tab 06/08/18 - Allergies Allergies/Adverse Reactions: Allergies Allergy/AdvReac Type Severity Reaction Status Date / Time No Known Allergies Allergy Verified 05/19/18 14:34 Review of Systems ROS Statement: Except As Marked, All Systems Reviewed And Found Negative Gastrointestinal: Positive for: Hematochezia, Other (rectal bleeding) Physical Exam - Reviewed Nursing Documentation Reviewed: Yes Vital Signs Reviewed: Yes - Physical Exam Appears: Positive for: Non-toxic, No Acute Distress Head Exam: Positive for: ATRAUMATIC, NORMOCEPHALIC Skin: Positive for: Normal Color, Warm, Dry Eye Exam: Positive for: EOMI, Normal appearance, PERRL ENT: Positive for: Normal ENT Inspection Neck: Positive for: Normal, Painless ROM Cardiovascular/Chest: Positive for: Regular Rate, Rhythm. Negative for: Murmur Respiratory: Positive for: Normal Breath Sounds. Negative for: Respiratory Distress Gastrointestinal/Abdominal: Positive for: Normal Exam, Soft. 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 External hemorrhoids, no thrombosed hemorrhoids, no bleeding, brown stool, and no pain ) Extremity: Positive for: Normal ROM (upper and lower). Negative for: Pedal Edema, Deformity Neurologic/Psych: Positive for: Alert, Oriented (x3) - ECG O2 Sat by Pulse Oximetry: 100 (RA) Pulse Ox Interpretation: Normal Medical Decision Making Medical Decision Making: Time: 1232 Initial Impression: Bleeding hemorrhoids Initial Plan: --Occult blood Scribe Attestation: Documented by Shireen Darden, acting as a scribe for Guillermina Dunn MD Provider Scribe Attestation: All medical record entries made by the Scribe were at my direction and personally dictated by me. I have reviewed the chart and agree that the record accurately reflects my personal performance of the history, physical exam, medical decision making, and the department course for this patient. I have also personally directed, reviewed, and agree with the discharge instructions and disposition. Disposition - Disposition Condition: STABLE
[2018-06-13 15:08] LABS: BASO % 0.4 % (0.0-2.0); EOS # 0.3 K/uL (0.0-0.7); EOS % 2.7 % (0.0-4.0); HEMOGLOBIN 10.9 g/dL (12.0-16.0); LYMPH # 1.3 K/uL (1.0-4.3); LYMPH % 12.8 % (20.0-40.0); MEAN CELL VOLUME 98.4 fl (81.0-99.0); MEAN CORPUSCULAR HEMOGLOBIN 33.5 pg (27.0-31.0); MEAN CORPUSCULAR HGB CONC 34.1 g/dL (33.0-37.0); MEAN PLATELET VOLUME 7.1 fl (7.2-11.7); MONO # 0.4 K/uL (0.0-0.8); NEUT % 80.1 % (50.0-75.0); RBC 3.26 Mil/uL (3.80-5.20); RED CELL DISTRIBUTION WIDTH 13.7 % (11.5-14.5)
[2018-06-13 15:24] LABS: ALB/GLOB RATIO 1.3 (1.0-2.1); ALBUMIN 3.9 g/dL (3.5-5.0); ALT/SGPT 43 U/L (9-52); AST/SGOT 34 U/L (14-36); BLOOD UREA NITROGEN 11 mg/dl (7-17); CALCIUM 8.6 mg/dL (8.4-10.2); GFR NON-AFRICAN AMERICAN > 60
--- NOTE | 2018-06-13 15:28 | ED PDOC ---
- Laboratory Results Result Diagrams: 06/14/18 08:20 06/14/18 19:26 - ECG O2 Sat by Pulse Oximetry: 100 (RA) Pulse Ox Interpretation: Normal Medical Decision Making Medical Decision Making: Time: 1500 --Patient with a history of hemorrhoids presents with one episode of bloody diarrhea. Previous provider attempted to contact PMAbby Wellsak, but was unable to. Will attempt to contact him again. Patient signed out to this provider by Dr. Dunn, pending labs, sitz bath and anusol. Time: 1540 --Informed Dr. Patel of the labs and the hyponatremia. He is suggest consulting Dr. Reaves for the hyponatremia and Dr. Koo for the GI bleed. Time: 1548 --Case discussed with Dr. Yannick Reaves, who is requesting osmolality, creatinine and uric acid. He agrees with a onetime bolus, but not an infusion as the patient is asymptomatic. Time: 1554 --Case discussed with Dr. Koo. Scribe Attestation: Documented by Shireen Darden, acting as a scribe for Mariela Thornton MD Provider Scribe Attestation: All medical record entries made by the Scribe were at my direction and personally dictated by me. I have reviewed the chart and agree that the record accurately reflects my personal performance of the history, physical exam, medical decision making, and the department course for this patient. I have also personally directed, reviewed, and agree with the discharge instructions and disposition. Disposition - Clinical Impression Clinical Impression: External hemorrhoid, bleeding - POA Present On Arrival: None - Disposition Disposition: Admitted as In-Patient Disposition Time: 15:54 Condition: GUARDED
[2018-06-13 15:30] LABS: PROTHROMBIN TIME 11.2 Seconds (9.8-13.1)
[2018-06-13 15:33] LABS: PARTIAL THROMBOPLASTIN TIME 39.4 Seconds (25.6-37.1)
[2018-06-13] MEDS ORDERED: Sodium Chloride 3% 100 ML IV STA (15:33)
[2018-06-13] MEDS ORDERED: Sodium Chloride 3% 50 ML IV STA (15:36)
--- NOTE | 2018-06-13 17:47 | CP.PCM.CON ---
History of Present Illness - History of Present Illness History of Present Illness: SURGERY NOTE FOR DR. MILIAN Reason for consult: blood per rectum 88F presents to ED for blood per rectum which has since resolved. Patient states she has had this in the past and they were due to her hemorrhoids. She has had two bowel movement while in ED and both had no blood associated with them. She states last time she hate was yesterday and is hungry to eat currently. She denies any nausea or vomiting, denies any fevers or chills. She denies any abdominal pain. PMH: Anxiety, CAD, CHF, COPD, Depression, HTN, HLD, HI PSH: "Hemorrhoid operation" Social: Denies tobacco, alcohol or illicit drug abuse Allergies: NKDA Past Patient History - Past Medical History & Family History Past Medical History?: Yes - Past Social History Smoking Status: Former Smoker - CARDIAC Hx Cardiac Disorders: Yes - PULMONARY Hx Respiratory Disorders: Yes - NEUROLOGICAL Hx Neurological Disorder: Yes - HEENT Hx HEENT Problems: No - RENAL Hx Chronic Kidney Disease: No - ENDOCRINE/METABOLIC Hx Hyperthyroidism: No Hx Hypothyroidism: No - HEMATOLOGICAL/ONCOLOGICAL Hx Anemia: No Hx Human Immunodeficiency Virus (HIV): No Hx Sickle Cell Disease: No - INTEGUMENTARY Hx Dermatological Problems: No - MUSCULOSKELETAL/RHEUMATOLOGICAL Hx Arthritis: No Hx Fractures: Yes Hx Osteoporosis: No Hx Rheumatoid Arthritis: No - GASTROINTESTINAL Hx Crohn's Disease: No Hx Diverticulitis: No Hx Gall Bladder Disease: No Hx Gastritis: No Hx Pancreatitis: No - GENITOURINARY/GYNECOLOGICAL Hx Sexually Transmitted Disorders: No - PSYCHIATRIC Hx Anxiety: Yes Hx Bipolar Disorder: No Hx Depression: Yes Hx Paranoia: Yes Hx Post Traumatic Stress Disorder: No Hx Schizophrenia: No - SURGICAL HISTORY Hx Appendectomy: No Hx Carotid Endarterectomy: No Hx Cholecystectomy: No Hx Coronary Artery Bypass Graft: No Hx Coronary Stent: No Hx Tonsillectomy: No - ANESTHESIA Hx Anesthesia: Yes Hx Anesthesia Reactions: No Hx Malignant Hyperthermia: No Meds Allergies/Adverse Reactions: Allergies Allergy/AdvReac Type Severity Reaction Status Date / Time No Known Allergies Allergy Verified 05/19/18 14:34 Physical Exam - Constitutional Appears: Non-toxic, No Acute Distress - ENT Exam ENT Exam: Mucous Membranes Moist - Respiratory Exam Respiratory Exam: Clear to Auscultation Bilateral, NORMAL BREATHING PATTERN - Cardiovascular Exam Cardiovascular Exam: REGULAR RHYTHM, +S1, +S2 - GI/Abdominal Exam GI & Abdominal Exam: Soft. absent: Distended, Firm, Guarding, Rebound, Rigid, Tenderness - Rectal Exam Rectal Exam: Hemorrhoids. absent: Black Stool, Bloody Stool - Extremities Exam Extremities exam: Negative for: pedal edema, tenderness - Neurological Exam Neurological exam: Alert, Oriented x3 - Psychiatric Exam Psychiatric exam: Normal Affect, Normal Mood - Skin Skin Exam: Dry, Intact, Normal Color, Warm Results - Vital Signs Recent Vital Signs: Last Vital Signs Temp 97.9 F 06/13/18 16:35 Pulse 77 06/13/18 16:35 Resp 16 06/13/18 16:35 BP 179/84 H 06/13/18 16:35 Pulse Ox 100 06/13/18 15:57 - Labs Result Diagrams: 06/13/18 14:50 06/13/18 14:50 Labs: Laboratory Results - last 24 hr 06/13/18 06/13/18 06/13/18 12:50 14:50 14:50 WBC 10.0 RBC 3.26 L Hgb 10.9 L Hct 32.1 L MCV 98.4 MCH 33.5 H MCHC 34.1 RDW 13.7 Plt Count 342 D MPV 7.1 L Neut % (Auto) 80.1 H Lymph % (Auto) 12.8 L [place] % (Auto) 4.0 Eos % (Auto) 2.7 Baso % (Auto) 0.4 Neut # (Auto) 8.0 H Lymph # (Auto) 1.3 [place] # (Auto) 0.4 Eos # (Auto) 0.3 Baso # (Auto) 0.0 PT INR APTT Sodium 119 L* Potassium 5.0 Chloride 83 L Carbon Dioxide 25 Anion Gap 16 BUN 11 Creatinine 0.4 L Est GFR ( Amer) > 60 Est GFR (Non-Af Amer) > 60 Random Glucose 88 Uric Acid Calcium 8.6 Total Bilirubin 0.4 AST 34 ALT 43 Alkaline Phosphatase 91 Total Protein 6.9 Albumin 3.9 Globulin 3.0 Albumin/Globulin Ratio 1.3 Stool Occult Blood Negative 06/13/18 06/13/18 14:50 16:19 WBC RBC Hgb Hct MCV MCH MCHC RDW Plt Count MPV Neut % (Auto) Lymph % (Auto) [place] % (Auto) Eos % (Auto) Baso % (Auto) Neut # (Auto) Lymph # (Auto) [place] # (Auto) Eos # (Auto) Baso # (Auto) PT 11.2 INR 1.0 APTT 39.4 H Sodium Potassium Chloride Carbon Dioxide Anion Gap BUN Creatinine Est GFR ( Amer) Est GFR (Non-Af Amer) Random Glucose Uric Acid 1.6 L Calcium Total Bilirubin AST ALT Alkaline Phosphatase Total Protein Albumin Globulin Albumin/Globulin Ratio Stool Occult Blood Assessment & Plan - Assessment and Plan (Free Text) Assessment: 88F with hemorrhoids, resolved bleeding per rectum, admitted for hyponatremia Plan: - Continues to monitor for bleed - Hemoglobin stable, f/u AM CBC - Recommend GI consultation - Continue medical management Discussed with Dr. Hayes Radford, PGY3
[2018-06-13 18:11] LABS: CREATININE, RANDOM URINE 38.4 mg/dL
[2018-06-13 19:04] LABS: HEMOGLOBIN 10.5 g/dL (12.0-16.0); MEAN CELL VOLUME 95.8 fl (81.0-99.0); MEAN CORPUSCULAR HEMOGLOBIN 33.1 pg (27.0-31.0); MEAN CORPUSCULAR HGB CONC 34.5 g/dL (33.0-37.0); RBC 3.17 Mil/uL (3.80-5.20); RED CELL DISTRIBUTION WIDTH 13.3 % (11.5-14.5); WHITE BLOOD COUNT 7.5 K/uL (4.8-10.8)
[2018-06-13] MEDS ORDERED: Tolvaptan 15 MG TAB PO ONE (21:00)
--- NOTE | 2018-06-13 23:50 | CP.PCM.HP ---
History of Present Illness - History of Present Illness History of Present Illness: 88 yo admitted for rectal bleeding Present on Admission - Present on Admission Any Indicators Present on Admission: No Past Patient History - Past Medical History & Family History Past Medical History?: Yes - Past Social History Smoking Status: Former Smoker - CARDIAC Hx Cardiac Disorders: Yes - PULMONARY Hx Respiratory Disorders: Yes - NEUROLOGICAL Hx Neurological Disorder: Yes - HEENT Hx HEENT Problems: No - RENAL Hx Chronic Kidney Disease: No - ENDOCRINE/METABOLIC Hx Hyperthyroidism: No Hx Hypothyroidism: No - HEMATOLOGICAL/ONCOLOGICAL Hx Anemia: No Hx Human Immunodeficiency Virus (HIV): No Hx Sickle Cell Disease: No - INTEGUMENTARY Hx Dermatological Problems: No - MUSCULOSKELETAL/RHEUMATOLOGICAL Hx Arthritis: No Hx Fractures: Yes Hx Osteoporosis: No Hx Rheumatoid Arthritis: No - GASTROINTESTINAL Hx Crohn's Disease: No Hx Diverticulitis: No Hx Gall Bladder Disease: No Hx Gastritis: No Hx Pancreatitis: No - GENITOURINARY/GYNECOLOGICAL Hx Sexually Transmitted Disorders: No - PSYCHIATRIC Hx Anxiety: Yes Hx Bipolar Disorder: No Hx Depression: Yes Hx Paranoia: Yes Hx Post Traumatic Stress Disorder: No Hx Schizophrenia: No - SURGICAL HISTORY Hx Appendectomy: No Hx Carotid Endarterectomy: No Hx Cholecystectomy: No Hx Coronary Artery Bypass Graft: No Hx Coronary Stent: No Hx Tonsillectomy: No - ANESTHESIA Hx Anesthesia: Yes Hx Anesthesia Reactions: No Hx Malignant Hyperthermia: No Meds Allergies/Adverse Reactions: Allergies Allergy/AdvReac Type Severity Reaction Status Date / Time No Known Allergies Allergy Verified 05/19/18 14:34 Physical Exam - Respiratory Exam Respiratory Exam: NORMAL BREATHING PATTERN - Cardiovascular Exam Cardiovascular Exam: REGULAR RHYTHM - GI/Abdominal Exam GI & Abdominal Exam: Normal Bowel Sounds Results - Vital Signs Recent Vital Signs: Last Vital Signs Temp 97.6 F 06/13/18 19:54 Pulse 70 06/13/18 19:54 Resp 18 06/13/18 19:54 BP 158/64 H 06/13/18 19:54 Pulse Ox 99 06/13/18 19:54 - Labs Result Diagrams: 06/13/18 18:45 06/13/18 18:45 Labs: Laboratory Results - last 24 hr 06/13/18 06/13/18 06/13/18 12:50 14:50 14:50 WBC 10.0 RBC 3.26 L Hgb 10.9 L Hct 32.1 L MCV 98.4 MCH 33.5 H MCHC 34.1 RDW 13.7 Plt Count 342 D MPV 7.1 L Neut % (Auto) 80.1 H Lymph % (Auto) 12.8 L [place] % (Auto) 4.0 Eos % (Auto) 2.7 Baso % (Auto) 0.4 Neut # (Auto) 8.0 H Lymph # (Auto) 1.3 [place] # (Auto) 0.4 Eos # (Auto) 0.3 Baso # (Auto) 0.0 PT INR APTT Sodium 119 L* Potassium 5.0 Chloride 83 L Carbon Dioxide 25 Anion Gap 16 BUN 11 Creatinine 0.4 L Est GFR ( Amer) > 60 Est GFR (Non-Af Amer) > 60 POC Glucose (mg/dL) Random Glucose 88 Serum Osmolality Uric Acid Calcium 8.6 Total Bilirubin 0.4 AST 34 ALT 43 Alkaline Phosphatase 91 Total Protein 6.9 Albumin 3.9 Globulin 3.0 Albumin/Globulin Ratio 1.3 Urine Osmolality Ur Random Creatinine Ur Random Sodium Stool Occult Blood Negative 06/13/18 06/13/18 06/13/18 14:50 16:00 16:19 WBC RBC Hgb Hct MCV MCH MCHC RDW Plt Count MPV Neut % (Auto) Lymph % (Auto) [place] % (Auto) Eos % (Auto) Baso % (Auto) Neut # (Auto) Lymph # (Auto) [place] # (Auto) Eos # (Auto) Baso # (Auto) PT 11.2 INR 1.0 APTT 39.4 H Sodium Potassium Chloride Carbon Dioxide Anion Gap BUN Creatinine Est GFR ( Amer) Est GFR (Non-Af Amer) POC Glucose (mg/dL) Random Glucose Serum Osmolality 258 L Uric Acid Calcium Total Bilirubin AST ALT Alkaline Phosphatase Total Protein Albumin Globulin Albumin/Globulin Ratio Urine Osmolality 450 Ur Random Creatinine 38.4 Ur Random Sodium 58 Stool Occult Blood 06/13/18 06/13/18 06/13/18 16:19 18:35 18:45 WBC 7.5 RBC 3.17 L Hgb 10.5 L Hct 30.4 L MCV 95.8 D MCH 33.1 H MCHC 34.5 RDW 13.3 Plt Count 324 MPV Neut % (Auto) Lymph % (Auto) [place] % (Auto) Eos % (Auto) Baso % (Auto) Neut # (Auto) Lymph # (Auto) [place] # (Auto) Eos # (Auto) Baso # (Auto) PT INR APTT Sodium Potassium Chloride Carbon Dioxide Anion Gap BUN Creatinine Est GFR ( Amer) Est GFR (Non-Af Amer) POC Glucose (mg/dL) 79 Random Glucose Serum Osmolality Uric Acid 1.6 L Calcium Total Bilirubin AST ALT Alkaline Phosphatase Total Protein Albumin Globulin Albumin/Globulin Ratio Urine Osmolality Ur Random Creatinine Ur Random Sodium Stool Occult Blood 06/13/18 06/13/18 18:45 21:33 WBC RBC Hgb Hct MCV MCH MCHC RDW Plt Count MPV Neut % (Auto) Lymph % (Auto) [place] % (Auto) Eos % (Auto) Baso % (Auto) Neut # (Auto) Lymph # (Auto) [place] # (Auto) Eos # (Auto) Baso # (Auto) PT INR APTT Sodium 119 L* Potassium Chloride Carbon Dioxide Anion Gap BUN Creatinine Est GFR ( Amer) Est GFR (Non-Af Amer) POC Glucose (mg/dL) 191 H Random Glucose Serum Osmolality Uric Acid Calcium Total Bilirubin AST ALT Alkaline Phosphatase Total Protein Albumin Globulin Albumin/Globulin Ratio Urine Osmolality Ur Random Creatinine Ur Random Sodium Stool Occult Blood Assessment & Plan - Assessment and Plan (Free Text) Assessment: Rectal bleeding Hx rectal prolapse Hx hemorrhoids 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 Nephrology NS Samsca S/P Acute ant wall NE + CE CT scan CHF O2 JAYESH B-annia Nitrates ASA Lovenox Cardiology Echo good LV fxn S/P Fall etiol?? 2 to above? COPD Prov Atrovent Chronic anxiety Ativan - Date & Time Date: 06/13/18 Time: 22:22
[2018-06-14] MEDS: Ipratropium 0.02% Inhal Soln (0.5 mg/2.5 ml) UD IH SCH ×4 (03:13→19:40)
[2018-06-14 07:03] LABS: BLOOD UREA NITROGEN 10 mg/dl (7-17); CALCIUM 8.7 mg/dL (8.4-10.2); GFR NON-AFRICAN AMERICAN > 60
--- NOTE | 2018-06-14 08:37 | CP.PCM.PN ---
Subjective - Date & Time of Evaluation Date of Evaluation: 06/14/18 Time of Evaluation: 08:35 - Subjective Subjective: General Surgery Progress Note for Dr. Koo 88F seen and evaluated at bedside this morning. No acute events overnight. No complaints this morning. No bloody bowel movements, or BRBPR per patient and nurse. No abdominal pain. Denies f/c, n/v/d, SOB, CP, headaches, dizziness, or urinary symptoms. Objective - Vital Signs/Intake and Output Vital Signs (last 24 hours): Temp Pulse Resp BP Pulse Ox 97.7 F 61 18 130/69 100 06/14/18 04:50 06/14/18 04:50 06/14/18 04:50 06/14/18 04:50 06/14/18 04:50 - Medications Medications: Current Medications Acetaminophen (Tylenol 325mg Tab) 650 mg PO Q6 PRN PRN Reason: Pain, moderate (4-7) Albuterol/Ipratropium (Duoneb 3 Mg/0.5 Mg (3 Ml) Ud) 3 ml IH Q12 [facility] Alendronate Sodium (Fosamax) 70 mg PO FR [facility] Amlodipine Besylate (Norvasc) 5 mg PO DAILY [facility] Atorvastatin Calcium (Lipitor) 10 mg PO HS [facility] Budesonide (Pulmicort Respules) 0.25 mg IH Q12 [facility] Last Admin: 06/14/18 07:45 Dose: 0.25 mg Carvedilol (Coreg) 3.125 mg PO Q12H [facility] Last Admin: 06/14/18 02:00 Dose: 3.125 mg Docusate Sodium (Colace) 100 mg PO BID [facility] Enalapril Maleate (Vasotec) 20 mg PO DAILY [facility] Ferrous Sulfate (Feosol) 325 mg PO TID [facility] Furosemide (Lasix) 20 mg PO DAILY [facility] Guaifenesin (Mucinex La) 600 mg PO Q12 [facility] Ipratropium [place] (Atrovent) 0.5 mg IH RQ6 [facility] Last Admin: 06/14/18 07:45 Dose: 0.5 mg Levalbuterol HCl (Xopenex) 0.63 mg INH RQ8 PRN PRN Reason: Wheezing Lorazepam (Ativan) 0.5 mg PO DAILY [facility] Metformin HCl (Glucophage) 500 mg PO BID [facility] Montelukast Sodium (Singulair) 10 mg PO HS [facility] Multivitamins/Minerals (Therapeutic-M Tab) 1 tab PO DAILY [facility] Pantoprazole Sodium (Protonix Ec Tab) 40 mg PO DAILY [facility] - Labs Labs: 06/13/18 18:45 06/14/18 05:30 PT 11.2 Seconds (9.8-13.1) 06/13/18 14:50 INR 1.0 06/13/18 14:50 APTT 39.4 Seconds (25.6-37.1) H 06/13/18 14:50 - Constitutional Appears: Well, Non-toxic, No Acute Distress - Head Exam Head Exam: ATRAUMATIC, NORMAL INSPECTION, NORMOCEPHALIC - Eye Exam Eye Exam: EOMI - ENT Exam ENT Exam: Mucous Membranes Moist - Respiratory Exam Respiratory Exam: NORMAL BREATHING PATTERN. absent: Respiratory Distress - GI/Abdominal Exam GI & Abdominal Exam: Soft, Normal Bowel Sounds. absent: Tenderness - Rectal Exam Rectal Exam: Hemorrhoids. absent: Black Stool, Bloody Stool - Neurological Exam Neurological Exam: Alert, Awake - Psychiatric Exam Psychiatric exam: Normal Affect, Normal Mood - Skin Skin Exam: Dry, Intact, Normal Color, Warm Assessment and Plan - Assessment and Plan (Free Text) Assessment: 88F w/ hemorrhoids Plan: Follow up AM CBC Continue to monitor for BRBPR No surgical intervention planned at this present time Further management per primary medical team Further recommendations per Dr. Hayes Bauer PGY1
[2018-06-14 08:49] LABS: HEMOGLOBIN 10.6 g/dL (12.0-16.0); MEAN CELL VOLUME 98.6 fl (81.0-99.0); MEAN CORPUSCULAR HEMOGLOBIN 34.1 pg (27.0-31.0); MEAN CORPUSCULAR HGB CONC 34.6 g/dL (33.0-37.0); RBC 3.09 Mil/uL (3.80-5.20); RED CELL DISTRIBUTION WIDTH 13.7 % (11.5-14.5); WHITE BLOOD COUNT 5.3 K/uL (4.8-10.8)
[2018-06-14] MEDS ORDERED: Patient's Own Med (Multivitamin [Multi-Vitamin Daily] 1 TAB) PO SCH (09:00)
[2018-06-14] MEDS ORDERED: Budesonide 0.25 mg/2 ml Inhal Susp UD IH SCH (09:00)
[2018-06-14] MEDS: guaiFENesin 600 mg ER Tab PO SCH ×2 (09:12→21:34)
[2018-06-14] MEDS: Pantoprazole 40 mg EC Tab PO SCH (09:12)
[2018-06-14] MEDS: Multivitamin With Minerals Tab PO SCH (09:13)
[2018-06-14] MEDS: Levalbuterol 0.63 MG/3 ML Inhal Soln UD INH PRN (19:40)
[2018-06-14] MEDS: Budesonide 0.25 mg/2 ml Inhal Susp UD IH SCH (19:40)
[2018-06-14 19:51] LABS: BLOOD UREA NITROGEN 17 mg/dl (7-17); CALCIUM 8.7 mg/dL (8.4-10.2); GFR NON-AFRICAN AMERICAN 59
--- NOTE | 2018-06-14 21:45 | CP.PCM.PN ---
Subjective - Date & Time of Evaluation Date of Evaluation: 06/14/18 Time of Evaluation: 22:22 - Subjective Subjective: Hbg stable Na+ 129 Objective - Vital Signs/Intake and Output Vital Signs (last 24 hours): Temp Pulse Resp BP Pulse Ox 98.3 F 79 18 121/63 96 06/14/18 19:37 06/14/18 19:37 06/14/18 19:37 06/14/18 19:37 06/14/18 19:37 Intake and Output: 06/14/18 06/15/18 18:59 06:59 Intake Total 540 Balance 540 - Medications Medications: Current Medications Acetaminophen (Tylenol 325mg Tab) 650 mg PO Q6 PRN PRN Reason: Pain, moderate (4-7) Albuterol/Ipratropium (Duoneb 3 Mg/0.5 Mg (3 Ml) Ud) 3 ml IH Q12 [facility] Alendronate Sodium (Fosamax) 70 mg PO FR [facility] Amlodipine Besylate (Norvasc) 5 mg PO DAILY [facility] Last Admin: 06/14/18 09:12 Dose: 5 mg Atorvastatin Calcium (Lipitor) 10 mg PO HS [facility] Last Admin: 06/14/18 21:34 Dose: 10 mg Budesonide (Pulmicort Respules) 0.25 mg IH RBID [facility] Last Admin: 06/14/18 19:40 Dose: 0.25 mg Carvedilol (Coreg) 3.125 mg PO Q12H [facility] Last Admin: 06/14/18 14:00 Dose: 3.125 mg Docusate Sodium (Colace) 100 mg PO BID [facility] Last Admin: 06/14/18 16:40 Dose: 100 mg Enalapril Maleate (Vasotec) 20 mg PO DAILY [facility] Last Admin: 06/14/18 09:13 Dose: 20 mg Ferrous Sulfate (Feosol) 325 mg PO TID [facility] Last Admin: 06/14/18 16:39 Dose: 325 mg Furosemide (Lasix) 20 mg PO DAILY [facility] Last Admin: 06/14/18 09:11 Dose: 20 mg Guaifenesin (Mucinex La) 600 mg PO Q12 [facility] Last Admin: 06/14/18 21:34 Dose: 600 mg Ipratropium [place] (Atrovent) 0.5 mg IH RQ6 [facility] Last Admin: 06/14/18 19:40 Dose: 0.5 mg Levalbuterol HCl (Xopenex) 0.63 mg INH RQ8 PRN PRN Reason: Wheezing Last Admin: 06/14/18 19:40 Dose: 0.63 mg Lorazepam (Ativan) 0.5 mg PO DAILY [facility] Last Admin: 06/14/18 09:16 Dose: 0.5 mg Metformin HCl (Glucophage) 500 mg PO BID [facility] Last Admin: 06/14/18 16:40 Dose: 500 mg Montelukast Sodium (Singulair) 10 mg PO HS [facility] Last Admin: 06/14/18 21:34 Dose: 10 mg Multivitamins/Minerals (Therapeutic-M Tab) 1 tab PO DAILY [facility] Last Admin: 06/14/18 09:13 Dose: 1 tab Pantoprazole Sodium (Protonix Ec Tab) 40 mg PO DAILY [facility] Last Admin: 06/14/18 09:12 Dose: 40 mg - Labs Labs: 06/14/18 08:20 06/14/18 19:26 PT 11.2 Seconds (9.8-13.1) 06/13/18 14:50 INR 1.0 06/13/18 14:50 APTT 39.4 Seconds (25.6-37.1) H 06/13/18 14:50 - Respiratory Exam Respiratory Exam: NORMAL BREATHING PATTERN - Cardiovascular Exam Cardiovascular Exam: REGULAR RHYTHM - GI/Abdominal Exam GI & Abdominal Exam: Normal Bowel Sounds Assessment and Plan - Assessment and Plan (Free Text) Assessment: Rectal bleeding Hx rectal prolapse Hx hemorrhoids Surgery GI 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 Nephrology NS [place]a S/P Acute ant wall RI + CE CT scan CHF O2 JAYESH B-[place] Nitrates ASA Lovenox Cardiology Echo good LV fxn S/P Fall etiol?? 2 to above? COPD Prov Atrovent Chronic anxiety Ativan
[2018-06-15] MEDS: Ipratropium 0.02% Inhal Soln (0.5 mg/2.5 ml) UD IH SCH ×4 (01:00→19:34)
[2018-06-15] MEDS: Levalbuterol 0.63 MG/3 ML Inhal Soln UD INH PRN (01:00)
[2018-06-15 05:49] LABS: HEMOGLOBIN 9.9 g/dL (12.0-16.0); MEAN CELL VOLUME 97.6 fl (81.0-99.0); MEAN CORPUSCULAR HEMOGLOBIN 33.8 pg (27.0-31.0); MEAN CORPUSCULAR HGB CONC 34.7 g/dL (33.0-37.0); RBC 2.94 Mil/uL (3.80-5.20); WHITE BLOOD COUNT 7.6 K/uL (4.8-10.8)
[2018-06-15 05:59] LABS: ALB/GLOB RATIO 1.4 (1.0-2.1); ALBUMIN 3.5 g/dL (3.5-5.0); ALT/SGPT 39 U/L (9-52); AST/SGOT 37 U/L (14-36); BLOOD UREA NITROGEN 19 mg/dl (7-17); CALCIUM 8.5 mg/dL (8.4-10.2); GFR NON-AFRICAN AMERICAN > 60
[2018-06-15] MEDS: Albuterol-Ipratrop 3 mg / 0.5 (3 ml) UD IH SCH ×2 (08:02→19:34)
[2018-06-15] MEDS: Budesonide 0.25 mg/2 ml Inhal Susp UD IH SCH ×2 (08:02→19:33)
[2018-06-15] MEDS: Pantoprazole 40 mg EC Tab PO SCH (08:54)
[2018-06-15] MEDS: guaiFENesin 600 mg ER Tab PO SCH ×2 (08:54→22:13)
[2018-06-15] MEDS: Multivitamin With Minerals Tab PO SCH (08:56)
--- NOTE | 2018-06-15 09:10 | CP.PCM.CON ---
History of Present Illness - History of Present Illness History of Present Illness: THE PATIENT IS AN 88 YEAR OLD FEMALE WHO CAME TO THE ER FOR RECTAL BLEEDING AND HAS HEMORRHOIDS. SHE WAS ADMITTED TO [facility] LAST MONTH AND SHE HAD AN AWMI AND DID WELL. SHE ALSO HAS A HISTORY OF HYPERTENSION, COPD, HYPERLIPIDEMIA, TYPE 2 DM AND HAD A TIA IN THE PAST. I HAVE BEEN ASKED BY DR THOMAS TO FOLLOW HER ON THIS ADMISSION. SHE IS CHEST PAIN FREE AND DENIES SOB. Past Patient History - Past Medical History & Family History Past Medical History?: Yes - Past Social History Smoking Status: Former Smoker - CARDIAC Hx Cardiac Disorders: Yes - PULMONARY Hx Respiratory Disorders: Yes - NEUROLOGICAL Hx Neurological Disorder: Yes - HEENT Hx HEENT Problems: No - RENAL Hx Chronic Kidney Disease: No - ENDOCRINE/METABOLIC Hx Hyperthyroidism: No Hx Hypothyroidism: No - HEMATOLOGICAL/ONCOLOGICAL Hx Anemia: No Hx Human Immunodeficiency Virus (HIV): No Hx Sickle Cell Disease: No - INTEGUMENTARY Hx Dermatological Problems: No - MUSCULOSKELETAL/RHEUMATOLOGICAL Hx Arthritis: No Hx Fractures: Yes Hx Osteoporosis: No Hx Rheumatoid Arthritis: No - GASTROINTESTINAL Hx Crohn's Disease: No Hx Diverticulitis: No Hx Gall Bladder Disease: No Hx Gastritis: No Hx Pancreatitis: No - GENITOURINARY/GYNECOLOGICAL Hx Sexually Transmitted Disorders: No - PSYCHIATRIC Hx Anxiety: Yes Hx Bipolar Disorder: No Hx Depression: Yes Hx Paranoia: Yes Hx Post Traumatic Stress Disorder: No Hx Schizophrenia: No - SURGICAL HISTORY Hx Appendectomy: No Hx Carotid Endarterectomy: No Hx Cholecystectomy: No Hx Coronary Artery Bypass Graft: No Hx Coronary Stent: No Hx Tonsillectomy: No - ANESTHESIA Hx Anesthesia: Yes Hx Anesthesia Reactions: No Hx Malignant Hyperthermia: No Meds Allergies/Adverse Reactions: Allergies Allergy/AdvReac Type Severity Reaction Status Date / Time No Known Allergies Allergy Verified 05/19/18 14:34 - Medications Medications: Current Medications Acetaminophen (Tylenol 325mg Tab) 650 mg PO Q6 PRN PRN Reason: Pain, moderate (4-7) Albuterol/Ipratropium (Duoneb 3 Mg/0.5 Mg (3 Ml) Ud) 3 ml IH Q12 [facility] Last Admin: 06/15/18 08:02 Dose: 3 ml Alendronate Sodium (Fosamax) 70 mg PO FR [facility] Amlodipine Besylate (Norvasc) 5 mg PO DAILY [facility] Last Admin: 06/15/18 08:56 Dose: 5 mg Atorvastatin Calcium (Lipitor) 10 mg PO HS [facility] Last Admin: 06/14/18 21:34 Dose: 10 mg Budesonide (Pulmicort Respules) 0.25 mg IH RBID [facility] Last Admin: 06/15/18 08:02 Dose: 0.25 mg Carvedilol (Coreg) 3.125 mg PO Q12H [facility] Last Admin: 06/15/18 00:37 Dose: 3.125 mg Docusate Sodium (Colace) 100 mg PO BID [facility] Last Admin: 06/15/18 08:55 Dose: 100 mg Enalapril Maleate (Vasotec) 20 mg PO DAILY [facility] Last Admin: 06/15/18 08:56 Dose: 20 mg Ferrous Sulfate (Feosol) 325 mg PO TID [facility] Last Admin: 06/15/18 08:55 Dose: 325 mg Furosemide (Lasix) 20 mg PO DAILY [facility] Last Admin: 06/14/18 09:11 Dose: 20 mg Guaifenesin (Mucinex La) 600 mg PO Q12 [facility] Last Admin: 06/15/18 08:54 Dose: 600 mg Ipratropium [place] (Atrovent) 0.5 mg IH RQ6 [facility] Last Admin: 06/15/18 08:02 Dose: 0.5 mg Levalbuterol HCl (Xopenex) 0.63 mg INH RQ8 PRN PRN Reason: Wheezing Last Admin: 06/15/18 01:00 Dose: 0.63 mg Lorazepam (Ativan) 0.5 mg PO DAILY [facility] Last Admin: 06/15/18 08:59 Dose: 0.5 mg Metformin HCl (Glucophage) 500 mg PO BID [facility] Last Admin: 06/15/18 08:55 Dose: 500 mg Montelukast Sodium (Singulair) 10 mg PO HS [facility] Last Admin: 06/14/18 21:34 Dose: 10 mg Multivitamins/Minerals (Therapeutic-M Tab) 1 tab PO DAILY [facility] Last Admin: 06/15/18 08:56 Dose: 1 tab Pantoprazole Sodium (Protonix Ec Tab) 40 mg PO DAILY [facility] Last Admin: 06/15/18 08:54 Dose: 40 mg Physical Exam - Respiratory Exam Respiratory Exam: Clear to Auscultation Bilateral - Cardiovascular Exam Cardiovascular Exam: REGULAR RHYTHM, +S1, +S2 - Extremities Exam Additional comments: NO LE EDEMA - Additional Findings Additional findings: THERE ISN'T ANY 12 LEAD EKG IN THE EMR ACCOUNTS RECEIV[employer] SHOWS NSR LABS NOTED SURGICAL NOTES REVIEWED Results - Vital Signs Recent Vital Signs: Last Vital Signs Temp 97.5 F L 06/15/18 07:48 Pulse 74 06/15/18 08:56 Resp 20 06/15/18 07:48 BP 170/84 H 06/15/18 08:56 Pulse Ox 100 06/15/18 07:48 - Labs Result Diagrams: 06/15/18 05:00 06/15/18 05:00 Labs: Laboratory Results - last 24 hr 06/14/18 06/14/18 06/14/18 12:04 16:30 19:26 WBC RBC Hgb Hct MCV MCH MCHC RDW Plt Count Sodium 130 L Potassium 5.2 H Chloride 94 L Carbon Dioxide 24 Anion Gap 17 BUN 17 Creatinine 0.9 Est GFR ( Amer) > 60 Est GFR (Non-Af Amer) 59 POC Glucose (mg/dL) 124 H 115 H Random Glucose 120 H Calcium 8.7 Total Bilirubin AST ALT Alkaline Phosphatase Total Protein Albumin Globulin Albumin/Globulin Ratio TSH 3rd Generation 06/14/18 06/15/18 06/15/18 22:06 04:52 05:00 WBC 7.6 RBC 2.94 L Hgb 9.9 L Hct 28.7 L MCV 97.6 MCH 33.8 H MCHC 34.7 RDW 14.0 Plt Count 305 Sodium Potassium Chloride Carbon Dioxide Anion Gap BUN Creatinine Est GFR ( Amer) Est GFR (Non-Af Amer) POC Glucose (mg/dL) 108 112 H Random Glucose Calcium Total Bilirubin AST ALT Alkaline Phosphatase Total Protein Albumin Globulin Albumin/Globulin Ratio TSH 3rd Generation 06/15/18 05:00 WBC RBC Hgb Hct MCV MCH MCHC RDW Plt Count Sodium 133 Potassium 4.6 Chloride 94 L Carbon Dioxide 28 Anion Gap 16 BUN 19 H Creatinine 0.7 Est GFR ( Amer) > 60 Est GFR (Non-Af Amer) > 60 POC Glucose (mg/dL) Random Glucose 92 Calcium 8.5 Total Bilirubin 0.2 AST 37 H ALT 39 Alkaline Phosphatase 76 Total Protein 6.0 L Albumin 3.5 Globulin 2.5 Albumin/Globulin Ratio 1.4 TSH 3rd Generation 1.30 Assessment & Plan - Assessment and Plan (Free Text) Assessment: RECTAL BLEED CAD-STABLE HYPERTENSION COPD TYPE 2 DM Plan: 12 LEAD EKG ORDERED CONTINUE CARVEDILOL, FUROSEMIDE, ATORVASTATIN, AMLODIPINE AND ENALAPRIL ASPIRIN IS ON HOLD DUE TO THE RECTAL BLEEDING
[2018-06-15 10:08] LABS: MEAN CELL VOLUME 100.3 fl (81.0-99.0); MEAN CORPUSCULAR HEMOGLOBIN 33.5 pg (27.0-31.0); MEAN CORPUSCULAR HGB CONC 33.3 g/dL (33.0-37.0); RBC 3.29 Mil/uL (3.80-5.20); RED CELL DISTRIBUTION WIDTH 14.2 % (11.5-14.5)
--- NOTE | 2018-06-15 10:34 | CP.PCM.CON ---
History of Present Illness - History of Present Illness History of Present Illness: this patient whole is 88 years of age female known to me with history of hyponatremia diagnosed SIADH with Previously required to be given Samsca on few time to correct the hyponatremia patient also known to have multitude of other medical problem related to coronary artery disease hypertension hyperlipidemia and COPD and the patient presented this time to the emergency room was rectal bleeding Past medical history as noted above Hyponatremia and COPD and CAD among other past medical history Review of Systems - Constitutional Constitutional: absent: Chills - Cardiovascular Cardiovascular: absent: Chest Pain, Dyspnea - Respiratory Respiratory: Chest Congestion. absent: Cough - Gastrointestinal Gastrointestinal: Melena. absent: Abdominal Pain, Vomiting - Genitourinary Genitourinary: Nocturia - Musculoskeletal Musculoskeletal: Loss of Height, Muscle Weakness. absent: Arthralgias - Neurological Neurological: As Per HPI. absent: Confusion, Focal Weakness, Syncope - Endocrine Endocrine: Fatigue - Hematologic/Lymphatic Hematologic: absent: Easy Bleeding Past Patient History - Past Medical History & Family History Past Medical History?: Yes - Past Social History Smoking Status: Former Smoker - CARDIAC Hx Cardiac Disorders: Yes - PULMONARY Hx Respiratory Disorders: Yes - NEUROLOGICAL Hx Neurological Disorder: Yes - HEENT Hx HEENT Problems: No - RENAL Hx Chronic Kidney Disease: No - ENDOCRINE/METABOLIC Hx Hyperthyroidism: No Hx Hypothyroidism: No - HEMATOLOGICAL/ONCOLOGICAL Hx Anemia: No Hx Human Immunodeficiency Virus (HIV): No Hx Sickle Cell Disease: No - INTEGUMENTARY Hx Dermatological Problems: No - MUSCULOSKELETAL/RHEUMATOLOGICAL Hx Arthritis: No Hx Fractures: Yes Hx Osteoporosis: No Hx Rheumatoid Arthritis: No - GASTROINTESTINAL Hx Crohn's Disease: No Hx Diverticulitis: No Hx Gall Bladder Disease: No Hx Gastritis: No Hx Pancreatitis: No - GENITOURINARY/GYNECOLOGICAL Hx Sexually Transmitted Disorders: No - PSYCHIATRIC Hx Anxiety: Yes Hx Bipolar Disorder: No Hx Depression: Yes Hx Paranoia: Yes Hx Post Traumatic Stress Disorder: No Hx Schizophrenia: No - SURGICAL HISTORY Hx Appendectomy: No Hx Carotid Endarterectomy: No Hx Cholecystectomy: No Hx Coronary Artery Bypass Graft: No Hx Coronary Stent: No Hx Tonsillectomy: No - ANESTHESIA Hx Anesthesia: Yes Hx Anesthesia Reactions: No Hx Malignant Hyperthermia: No Meds Allergies/Adverse Reactions: Allergies Allergy/AdvReac Type Severity Reaction Status Date / Time No Known Allergies Allergy Verified 05/19/18 14:34 - Medications Medications: Current Medications Acetaminophen (Tylenol 325mg Tab) 650 mg PO Q6 PRN PRN Reason: Pain, moderate (4-7) Albuterol/Ipratropium (Duoneb 3 Mg/0.5 Mg (3 Ml) Ud) 3 ml IH Q12 [facility] Last Admin: 06/15/18 08:02 Dose: 3 ml Alendronate Sodium (Fosamax) 70 mg PO FR [facility] Amlodipine Besylate (Norvasc) 5 mg PO DAILY [facility] Last Admin: 06/15/18 08:56 Dose: 5 mg Atorvastatin Calcium (Lipitor) 10 mg PO HS [facility] Last Admin: 06/14/18 21:34 Dose: 10 mg Budesonide (Pulmicort Respules) 0.25 mg IH RBID [facility] Last Admin: 06/15/18 08:02 Dose: 0.25 mg Carvedilol (Coreg) 3.125 mg PO Q12H [facility] Last Admin: 06/15/18 00:37 Dose: 3.125 mg Docusate Sodium (Colace) 100 mg PO BID [facility] Last Admin: 06/15/18 08:55 Dose: 100 mg Enalapril Maleate (Vasotec) 20 mg PO DAILY [facility] Last Admin: 06/15/18 08:56 Dose: 20 mg Ferrous Sulfate (Feosol) 325 mg PO TID [facility] Last Admin: 06/15/18 08:55 Dose: 325 mg Furosemide (Lasix) 20 mg PO DAILY [facility] Last Admin: 06/14/18 09:11 Dose: 20 mg Guaifenesin (Mucinex La) 600 mg PO Q12 [facility] Last Admin: 06/15/18 08:54 Dose: 600 mg Ipratropium [place] (Atrovent) 0.5 mg IH RQ6 [facility] Last Admin: 06/15/18 08:02 Dose: 0.5 mg Levalbuterol HCl (Xopenex) 0.63 mg INH RQ8 PRN PRN Reason: Wheezing Last Admin: 06/15/18 01:00 Dose: 0.63 mg Lorazepam (Ativan) 0.5 mg PO DAILY [facility] Last Admin: 06/15/18 08:59 Dose: 0.5 mg Metformin HCl (Glucophage) 500 mg PO BID [facility] Last Admin: 06/15/18 08:55 Dose: 500 mg Montelukast Sodium (Singulair) 10 mg PO HS [facility] Last Admin: 06/14/18 21:34 Dose: 10 mg Multivitamins/Minerals (Therapeutic-M Tab) 1 tab PO DAILY [facility] Last Admin: 06/15/18 08:56 Dose: 1 tab Pantoprazole Sodium (Protonix Ec Tab) 40 mg PO DAILY [facility] Last Admin: 06/15/18 08:54 Dose: 40 mg Physical Exam - Constitutional Appears: No Acute Distress - Eye Exam Eye Exam: Conjunctival injection - ENT Exam ENT Exam: Mucous Membranes Moist - Respiratory Exam Respiratory Exam: NORMAL BREATHING PATTERN. absent: Chest Wall Tenderness, Rales - Cardiovascular Exam Cardiovascular Exam: absent: Gallop, JVD, Rubs - GI/Abdominal Exam GI & Abdominal Exam: Normal Bowel Sounds. absent: Guarding - Extremities Exam Extremities exam: Negative for: calf tenderness, pedal edema - Back Exam Back exam: absent: CVA tenderness (L), CVA tenderness (R) - Neurological Exam Neurological exam: Alert - Psychiatric Exam Psychiatric exam: Normal Affect Results - Vital Signs Recent Vital Signs: Last Vital Signs Temp 97.5 F L 06/15/18 07:48 Pulse 74 06/15/18 08:56 Resp 20 06/15/18 07:48 BP 170/84 H 06/15/18 08:56 Pulse Ox 100 06/15/18 07:48 - Labs Result Diagrams: 06/15/18 08:40 06/15/18 05:00 Labs: Laboratory Results - last 24 hr 06/14/18 06/14/18 06/14/18 12:04 16:30 19:26 WBC RBC Hgb Hct MCV MCH MCHC RDW Plt Count Sodium 130 L Potassium 5.2 H Chloride 94 L Carbon Dioxide 24 Anion Gap 17 BUN 17 Creatinine 0.9 Est GFR ( Amer) > 60 Est GFR (Non-Af Amer) 59 POC Glucose (mg/dL) 124 H 115 H Random Glucose 120 H Calcium 8.7 Total Bilirubin AST ALT Alkaline Phosphatase Total Protein Albumin Globulin Albumin/Globulin Ratio TSH 3rd Generation 06/14/18 06/15/18 06/15/18 22:06 04:52 05:00 WBC 7.6 RBC 2.94 L Hgb 9.9 L Hct 28.7 L MCV 97.6 MCH 33.8 H MCHC 34.7 RDW 14.0 Plt Count 305 Sodium Potassium Chloride Carbon Dioxide Anion Gap BUN Creatinine Est GFR ( Amer) Est GFR (Non-Af Amer) POC Glucose (mg/dL) 108 112 H Random Glucose Calcium Total Bilirubin AST ALT Alkaline Phosphatase Total Protein Albumin Globulin Albumin/Globulin Ratio TSH 3rd Generation 06/15/18 06/15/18 05:00 08:40 WBC 7.0 RBC 3.29 L Hgb 11.0 L Hct 33.0 L MCV 100.3 H D MCH 33.5 H MCHC 33.3 RDW 14.2 Plt Count 334 Sodium 133 Potassium 4.6 Chloride 94 L Carbon Dioxide 28 Anion Gap 16 BUN 19 H Creatinine 0.7 Est GFR ( Amer) > 60 Est GFR (Non-Af Amer) > 60 POC Glucose (mg/dL) Random Glucose 92 Calcium 8.5 Total Bilirubin 0.2 AST 37 H ALT 39 Alkaline Phosphatase 76 Total Protein 6.0 L Albumin 3.5 Globulin 2.5 Albumin/Globulin Ratio 1.4 TSH 3rd Generation 1.30 Assessment & Plan (1) Hyponatremia Assessment and Plan: Assessment & Plan: hyponatremia secondary to SIADH Pneumonia copd Fall, DM, HTN, hyperlipidemia, anemia CAD the plan serum sodium came up to 133 Monitor serum sodium not to rise more than 9 mEq in 24 hrs or so if serum sodium to drop again she will need more Samsca patient will need Samsca most likely between 2-3 times a week Status: Acute (2) SIAD (syndrome of inappropriate antidiuresis) Status: Acute
[2018-06-15 10:57] LABS: BLOOD UREA NITROGEN 18 mg/dl (7-17); CALCIUM 8.7 mg/dL (8.4-10.2); GFR NON-AFRICAN AMERICAN > 60
[2018-06-15 12:02] LABS: IRON 32 ug/dL (37-170)
[2018-06-15 12:12] LABS: % IRON SATURATION 10 % (20-55); TOTAL IRON BINDING CAPACITY 310 ug/dL (250-450)
[2018-06-15 13:19] LABS: FOLATE > 20.0 ng/mL
--- NOTE | 2018-06-15 16:59 | CP.PCM.CON ---
History of Present Illness - History of Present Illness History of Present Illness: 88 yo female referred to me for evaluation of GI bleeding. Patient states she had just one episode of bleeding which occurred when she was having a hard bowel movement and generally she does not have bleeding. No significant bleeding or drop in Hgb since admission. Denies any rectal pain at the moment. Review of Systems - Constitutional Constitutional: absent: Chills - EENT Eyes: absent: Blurred Vision Ears: absent: Ear Pain Nose/Mouth/Throat: absent: Epistaxis - Cardiovascular Cardiovascular: absent: Chest Pain - Respiratory Respiratory: absent: Dyspnea - Gastrointestinal Gastrointestinal: absent: Abdominal Pain - Genitourinary Genitourinary: absent: Dysuria Past Patient History - Past Medical History & Family History Past Medical History?: Yes - Past Social History Smoking Status: Former Smoker - CARDIAC Hx Cardiac Disorders: Yes - PULMONARY Hx Respiratory Disorders: Yes - NEUROLOGICAL Hx Neurological Disorder: Yes - HEENT Hx HEENT Problems: No - RENAL Hx Chronic Kidney Disease: No - ENDOCRINE/METABOLIC Hx Hyperthyroidism: No Hx Hypothyroidism: No - HEMATOLOGICAL/ONCOLOGICAL Hx Anemia: No Hx Human Immunodeficiency Virus (HIV): No Hx Sickle Cell Disease: No - INTEGUMENTARY Hx Dermatological Problems: No - MUSCULOSKELETAL/RHEUMATOLOGICAL Hx Arthritis: No Hx Fractures: Yes Hx Osteoporosis: No Hx Rheumatoid Arthritis: No - GASTROINTESTINAL Hx Crohn's Disease: No Hx Diverticulitis: No Hx Gall Bladder Disease: No Hx Gastritis: No Hx Pancreatitis: No - GENITOURINARY/GYNECOLOGICAL Hx Sexually Transmitted Disorders: No - PSYCHIATRIC Hx Anxiety: Yes Hx Bipolar Disorder: No Hx Depression: Yes Hx Paranoia: Yes Hx Post Traumatic Stress Disorder: No Hx Schizophrenia: No - SURGICAL HISTORY Hx Appendectomy: No Hx Carotid Endarterectomy: No Hx Cholecystectomy: No Hx Coronary Artery Bypass Graft: No Hx Coronary Stent: No Hx Tonsillectomy: No - ANESTHESIA Hx Anesthesia: Yes Hx Anesthesia Reactions: No Hx Malignant Hyperthermia: No Meds Allergies/Adverse Reactions: Allergies Allergy/AdvReac Type Severity Reaction Status Date / Time No Known Allergies Allergy Verified 05/19/18 14:34 - Medications Medications: Current Medications Acetaminophen (Tylenol 325mg Tab) 650 mg PO Q6 PRN PRN Reason: Pain, moderate (4-7) Albuterol/Ipratropium (Duoneb 3 Mg/0.5 Mg (3 Ml) Ud) 3 ml IH Q12 [facility] Last Admin: 12/10/18 08:02 Dose: 3 ml Alendronate Sodium (Fosamax) 70 mg PO FR [facility] Amlodipine Besylate (Norvasc) 5 mg PO DAILY [facility] Last Admin: 06/15/18 08:56 Dose: 5 mg Atorvastatin Calcium (Lipitor) 10 mg PO HS [facility] Last Admin: 06/14/18 21:34 Dose: 10 mg Budesonide (Pulmicort Respules) 0.25 mg IH RBID [facility] Last Admin: 06/15/18 08:02 Dose: 0.25 mg Carvedilol (Coreg) 3.125 mg PO Q12H [facility] Last Admin: 06/15/18 13:30 Dose: 3.125 mg Docusate Sodium (Colace) 100 mg PO BID [facility] Last Admin: 06/15/18 16:42 Dose: Not Given Enalapril Maleate (Vasotec) 20 mg PO DAILY [facility] Last Admin: 06/15/18 08:56 Dose: 20 mg Ferrous Sulfate (Feosol) 325 mg PO TID [facility] Last Admin: 06/15/18 16:41 Dose: 325 mg Furosemide (Lasix) 20 mg PO DAILY [facility] Last Admin: 06/14/18 09:11 Dose: 20 mg Guaifenesin (Mucinex La) 600 mg PO Q12 [facility] Last Admin: 06/15/18 08:54 Dose: 600 mg Ipratropium [place] (Atrovent) 0.5 mg IH RQ6 [facility] Last Admin: 06/15/18 13:35 Dose: 0.5 mg Levalbuterol HCl (Xopenex) 0.63 mg INH RQ8 PRN PRN Reason: Wheezing Last Admin: 06/15/18 01:00 Dose: 0.63 mg Lorazepam (Ativan) 0.5 mg PO DAILY [facility] Last Admin: 06/15/18 08:59 Dose: 0.5 mg Metformin HCl (Glucophage) 500 mg PO BID [facility] Last Admin: 06/15/18 16:41 Dose: 500 mg Montelukast Sodium (Singulair) 10 mg PO HS [facility] Last Admin: 06/14/18 21:34 Dose: 10 mg Multivitamins/Minerals (Therapeutic-M Tab) 1 tab PO DAILY [facility] Last Admin: 06/15/18 08:56 Dose: 1 tab Pantoprazole Sodium (Protonix Ec Tab) 40 mg PO DAILY [facility] Last Admin: 06/15/18 08:54 Dose: 40 mg Physical Exam - Constitutional Appears: No Acute Distress - Head Exam Head Exam: ATRAUMATIC - Eye Exam Eye Exam: Normal appearance - ENT Exam ENT Exam: Normal Exam - Neck Exam Neck exam: Positive for: Normal Inspection - Respiratory Exam Respiratory Exam: Clear to Auscultation Bilateral - Cardiovascular Exam Cardiovascular Exam: REGULAR RHYTHM, +S1, +S2 - GI/Abdominal Exam GI & Abdominal Exam: Normal Bowel Sounds, Soft. absent: Tenderness - Rectal Exam Rectal Exam: Deferred Results - Vital Signs Recent Vital Signs: Last Vital Signs Temp 98.1 F 06/15/18 16:25 Pulse 68 06/15/18 16:25 Resp 20 06/15/18 16:25 BP 130/61 06/15/18 16:25 Pulse Ox 98 06/15/18 16:25 - Labs Result Diagrams: 06/15/18 08:40 06/15/18 08:40 Labs: Laboratory Results - last 24 hr 06/14/18 06/14/18 06/14/18 05:30 19:26 22:06 WBC RBC Hgb Hct MCV MCH MCHC RDW Plt Count Sodium 130 L Potassium 5.2 H Chloride 94 L Carbon Dioxide 24 Anion Gap 17 BUN 17 Creatinine 0.9 Est GFR ( Amer) > 60 Est GFR (Non-Af Amer) 59 POC Glucose (mg/dL) 108 Random Glucose 120 H Calcium 8.7 Iron TIBC % Saturation Ferritin Total Bilirubin AST ALT Alkaline Phosphatase Total Protein Albumin Globulin Albumin/Globulin Ratio Vitamin B12 Folate TSH 3rd Generation Cortisol AM Sample 20.0 06/15/18 06/15/18 06/15/18 04:52 05:00 05:00 WBC 7.6 RBC 2.94 L Hgb 9.9 L Hct 28.7 L MCV 97.6 MCH 33.8 H MCHC 34.7 RDW 14.0 Plt Count 305 Sodium 133 Potassium 4.6 Chloride 94 L Carbon Dioxide 28 Anion Gap 16 BUN 19 H Creatinine 0.7 Est GFR ( Amer) > 60 Est GFR (Non-Af Amer) > 60 POC Glucose (mg/dL) 112 H Random Glucose 92 Calcium 8.5 Iron TIBC % Saturation Ferritin Total Bilirubin 0.2 AST 37 H ALT 39 Alkaline Phosphatase 76 Total Protein 6.0 L Albumin 3.5 Globulin 2.5 Albumin/Globulin Ratio 1.4 Vitamin B12 Folate TSH 3rd Generation 1.30 Cortisol AM Sample 06/15/18 06/15/18 06/15/18 08:40 08:40 09:55 WBC 7.0 RBC 3.29 L Hgb 11.0 L Hct 33.0 L MCV 100.3 H D MCH 33.5 H MCHC 33.3 RDW 14.2 Plt Count 334 Sodium 131 L Potassium 4.5 Chloride 94 L Carbon Dioxide 28 Anion Gap 14 BUN 18 H Creatinine 0.5 L Est GFR ( Amer) > 60 Est GFR (Non-Af Amer) > 60 POC Glucose (mg/dL) Random Glucose 163 H Calcium 8.7 Iron TIBC % Saturation Ferritin 130.0 Total Bilirubin AST ALT Alkaline Phosphatase Total Protein Albumin Globulin Albumin/Globulin Ratio Vitamin B12 949 H Folate > 20.0 TSH 3rd Generation Cortisol AM Sample 06/15/18 06/15/18 06/15/18 10:40 11:02 16:11 WBC RBC Hgb Hct MCV MCH MCHC RDW Plt Count Sodium Potassium Chloride Carbon Dioxide Anion Gap BUN Creatinine Est GFR ( Amer) Est GFR (Non-Af Amer) POC Glucose (mg/dL) 179 H 107 Random Glucose Calcium Iron 32 L TIBC 310 % Saturation 10 L Ferritin Total Bilirubin AST ALT Alkaline Phosphatase Total Protein Albumin Globulin Albumin/Globulin Ratio Vitamin B12 Folate TSH 3rd Generation Cortisol AM Sample Assessment & Plan (1) GI bleed Assessment and Plan: Patient Hgb stable and bleeding appears not to be hemodynamically significant. No observed bleeding since admission. Bleeding could be hemorrhoidal. Patient given option of colonoscopy to r/o polyp, mass, and colitis and currently declines. Status: Acute
--- NOTE | 2018-06-15 18:19 | CARD ---
APPROVED REPORT Date of service: 06/15/2018 EKG Measurement Heart [id number] <Conclusion> Normal sinus rhythm ST & Marked T wave abnormality, consider anterolateral ischemia Abnormal ECG
--- NOTE | 2018-06-15 20:09 | CP.PCM.PN ---
Subjective - Date & Time of Evaluation Date of Evaluation: 06/15/18 Time of Evaluation: 22:22 - Subjective Subjective: ABove noted Objective - Vital Signs/Intake and Output Vital Signs (last 24 hours): Temp Pulse Resp BP Pulse Ox 98.1 F 68 20 130/61 98 06/15/18 16:25 06/15/18 16:25 06/15/18 16:25 06/15/18 16:25 06/15/18 16:25 Intake and Output: 06/15/18 06/16/18 18:59 06:59 Intake Total 600 Balance 600 - Medications Medications: Current Medications Acetaminophen (Tylenol 325mg Tab) 650 mg PO Q6 PRN PRN Reason: Pain, moderate (4-7) Albuterol/Ipratropium (Duoneb 3 Mg/0.5 Mg (3 Ml) Ud) 3 ml IH Q12 [facility] Last Admin: 06/15/18 19:34 Dose: 3 ml Alendronate Sodium (Fosamax) 70 mg PO FR [facility] Amlodipine Besylate (Norvasc) 5 mg PO DAILY [facility] Last Admin: 06/15/18 08:56 Dose: 5 mg Atorvastatin Calcium (Lipitor) 10 mg PO HS [facility] Last Admin: 06/14/18 21:34 Dose: 10 mg Budesonide (Pulmicort Respules) 0.25 mg IH RBID [facility] Last Admin: 06/15/18 19:33 Dose: 0.25 mg Carvedilol (Coreg) 3.125 mg PO Q12H [facility] Last Admin: 06/15/18 13:30 Dose: 3.125 mg Docusate Sodium (Colace) 100 mg PO BID [facility] Last Admin: 06/15/18 16:42 Dose: Not Given Enalapril Maleate (Vasotec) 20 mg PO DAILY [facility] Last Admin: 06/15/18 08:56 Dose: 20 mg Ferrous Sulfate (Feosol) 325 mg PO TID [facility] Last Admin: 06/15/18 16:41 Dose: 325 mg Furosemide (Lasix) 20 mg PO DAILY [facility] Last Admin: 06/14/18 09:11 Dose: 20 mg Guaifenesin (Mucinex La) 600 mg PO Q12 [facility] Last Admin: 06/15/18 08:54 Dose: 600 mg Ipratropium [place] (Atrovent) 0.5 mg IH RQ6 [facility] Last Admin: 06/15/18 19:34 Dose: 0.5 mg Levalbuterol HCl (Xopenex) 0.63 mg INH RQ8 PRN PRN Reason: Wheezing Last Admin: 06/15/18 01:00 Dose: 0.63 mg Lorazepam (Ativan) 0.5 mg PO DAILY [facility] Last Admin: 06/15/18 08:59 Dose: 0.5 mg Metformin HCl (Glucophage) 500 mg PO BID [facility] Last Admin: 06/15/18 16:41 Dose: 500 mg Montelukast Sodium (Singulair) 10 mg PO HS [facility] Last Admin: 06/14/18 21:34 Dose: 10 mg Multivitamins/Minerals (Therapeutic-M Tab) 1 tab PO DAILY [facility] Last Admin: 06/15/18 08:56 Dose: 1 tab Pantoprazole Sodium (Protonix Ec Tab) 40 mg PO DAILY [facility] Last Admin: 06/15/18 08:54 Dose: 40 mg - Labs Labs: 06/15/18 08:40 06/15/18 08:40 PT 11.2 Seconds (9.8-13.1) 06/13/18 14:50 INR 1.0 06/13/18 14:50 APTT 39.4 Seconds (25.6-37.1) H 06/13/18 14:50 - Respiratory Exam Respiratory Exam: NORMAL BREATHING PATTERN - Cardiovascular Exam Cardiovascular Exam: REGULAR RHYTHM - GI/Abdominal Exam GI & Abdominal Exam: Normal Bowel Sounds Assessment and Plan - Assessment and Plan (Free Text) Assessment: Rectal bleeding Hx rectal prolapse Hx hemorrhoids Surgery GI Refusing w/u 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 Nephrology NS Samsca S/P Acute ant wall [place] + CE CT scan CHF O2 JAYESH B-annia Nitrates ASA Lovenox Cardiology Echo good LV fxn S/P Fall etiol?? 2 to above? COPD Prov Atrovent Chronic anxiety Ativan
[2018-06-16] MEDS: Ipratropium 0.02% Inhal Soln (0.5 mg/2.5 ml) UD IH SCH ×3 (01:00→13:02)
[2018-06-16 01:45] VITALS: RESP 20
[2018-06-16] MEDS: Albuterol-Ipratrop 3 mg / 0.5 (3 ml) UD IH SCH (07:10)
[2018-06-16] MEDS: Budesonide 0.25 mg/2 ml Inhal Susp UD IH SCH (07:10)
[2018-06-16] MEDS: guaiFENesin 600 mg ER Tab PO SCH (09:49)
[2018-06-16] MEDS: Multivitamin With Minerals Tab PO SCH (09:50)
[2018-06-16] MEDS: Pantoprazole 40 mg EC Tab PO SCH (09:51)
--- NOTE | 2018-06-16 10:41 | CP.PCM.PN ---
Subjective - Date & Time of Evaluation Date of Evaluation: 06/16/18 Time of Evaluation: 08:40 - Subjective Subjective: NO CHEST PAIN OR SOB Objective - Vital Signs/Intake and Output Vital Signs (last 24 hours): Temp Pulse Resp BP Pulse Ox 98.1 F 69 20 169/74 H 100 06/16/18 08:00 06/16/18 09:51 06/16/18 08:00 06/16/18 09:51 06/16/18 08:00 - Medications Medications: Current Medications Acetaminophen (Tylenol 325mg Tab) 650 mg PO Q6 PRN PRN Reason: Pain, moderate (4-7) Albuterol/Ipratropium (Duoneb 3 Mg/0.5 Mg (3 Ml) Ud) 3 ml IH Q12 [facility] Last Admin: 06/16/18 07:10 Dose: 3 ml Alendronate Sodium (Fosamax) 70 mg PO FR [facility] Amlodipine Besylate (Norvasc) 5 mg PO DAILY [facility] Last Admin: 06/16/18 09:51 Dose: 5 mg Atorvastatin Calcium (Lipitor) 10 mg PO HS [facility] Last Admin: 06/15/18 22:13 Dose: 10 mg Budesonide (Pulmicort Respules) 0.25 mg IH RBID [facility] Last Admin: 06/16/18 07:10 Dose: 0.25 mg Carvedilol (Coreg) 3.125 mg PO Q12H [facility] Last Admin: 06/16/18 01:03 Dose: 3.125 mg Docusate Sodium (Colace) 100 mg PO BID [facility] Last Admin: 06/15/18 16:42 Dose: Not Given Enalapril Maleate (Vasotec) 20 mg PO DAILY [facility] Last Admin: 06/16/18 09:50 Dose: 20 mg Ferrous Sulfate (Feosol) 325 mg PO TID [facility] Last Admin: 06/16/18 09:49 Dose: 325 mg Furosemide (Lasix) 20 mg PO DAILY [facility] Last Admin: 06/14/18 09:11 Dose: 20 mg Guaifenesin (Mucinex La) 600 mg PO Q12 [facility] Last Admin: 06/16/18 09:49 Dose: 600 mg Ipratropium [place] (Atrovent) 0.5 mg IH RQ6 [facility] Last Admin: 06/16/18 07:10 Dose: 0.5 mg Levalbuterol HCl (Xopenex) 0.63 mg INH RQ8 PRN PRN Reason: Wheezing Last Admin: 06/15/18 01:00 Dose: 0.63 mg Lorazepam (Ativan) 0.5 mg PO DAILY [facility] Last Admin: 06/16/18 09:49 Dose: 0.5 mg Metformin HCl (Glucophage) 500 mg PO BID [facility] Last Admin: 06/16/18 09:52 Dose: 500 mg Montelukast Sodium (Singulair) 10 mg PO HS [facility] Last Admin: 06/15/18 22:13 Dose: 10 mg Multivitamins/Minerals (Therapeutic-M Tab) 1 tab PO DAILY [facility] Last Admin: 06/16/18 09:50 Dose: 1 tab Pantoprazole Sodium (Protonix Ec Tab) 40 mg PO DAILY [facility] Last Admin: 06/16/18 09:51 Dose: 40 mg - Labs Labs: 06/15/18 08:40 06/15/18 08:40 PT 11.2 Seconds (9.8-13.1) 06/13/18 14:50 INR 1.0 06/13/18 14:50 APTT 39.4 Seconds (25.6-37.1) H 06/13/18 14:50 - Respiratory Exam Respiratory Exam: Clear to Ausculation Bilateral - Cardiovascular Exam Cardiovascular Exam: REGULAR RHYTHM, +S1, +S2 - Extremities Exam Extremities Exam: Normal Inspection Assessment and Plan - Assessment and Plan (Free Text) Assessment: GI BLEED CAD HYPERTENSION COPD TYPE 2 DM Plan: CONTINUE CARVEDILOL, FUROSEMIDE, ATORVASTATIN, AMLODIPINE, ENALAPRIL, METFORMEN AND COPD MEDS PATIENT REFUSING GI MÁRQUEZ
[2018-06-16 10:48] LABS: HEMOGLOBIN 9.9 g/dL (12.0-16.0); MEAN CORPUSCULAR HEMOGLOBIN 33.6 pg (27.0-31.0); MEAN CORPUSCULAR HGB CONC 33.3 g/dL (33.0-37.0); RBC 2.94 Mil/uL (3.80-5.20); WHITE BLOOD COUNT 7.6 K/uL (4.8-10.8)
--- NOTE | 2018-06-16 10:48 | CP.PCM.CON ---
History of Present Illness - History of Present Illness History of Present Illness: Podiatry Consult note for Dr. You, 88 y/o female seen at bedside for left ankle wound. Patient states she was admitted to the hospital for hemorrhoids and weakness. Patient states she is feeling much better. Patient denies any other complaints. Patient states the wound had healed, however, opened up again as it has not been taken care off. Patient denies any F/N/V/SOB/CP. Review of Systems - Review of Systems All systems: reviewed and no additional remarkable complaints except Review of Systems: As per HPI Past Patient History - Past Medical History & Family History Past Medical History?: Yes - Past Social History Smoking Status: Former Smoker - CARDIAC Hx Cardiac Disorders: Yes - PULMONARY Hx Respiratory Disorders: Yes - NEUROLOGICAL Hx Neurological Disorder: Yes - HEENT Hx HEENT Problems: No - RENAL Hx Chronic Kidney Disease: No - ENDOCRINE/METABOLIC Hx Hyperthyroidism: No Hx Hypothyroidism: No - HEMATOLOGICAL/ONCOLOGICAL Hx Anemia: No Hx Human Immunodeficiency Virus (HIV): No Hx Sickle Cell Disease: No - INTEGUMENTARY Hx Dermatological Problems: No - MUSCULOSKELETAL/RHEUMATOLOGICAL Hx Arthritis: No Hx Fractures: Yes Hx Osteoporosis: No Hx Rheumatoid Arthritis: No - GASTROINTESTINAL Hx Crohn's Disease: No Hx Diverticulitis: No Hx Gall Bladder Disease: No Hx Gastritis: No Hx Pancreatitis: No - GENITOURINARY/GYNECOLOGICAL Hx Sexually Transmitted Disorders: No - PSYCHIATRIC Hx Anxiety: Yes Hx Bipolar Disorder: No Hx Depression: Yes Hx Paranoia: Yes Hx Post Traumatic Stress Disorder: No Hx Schizophrenia: No - SURGICAL HISTORY Hx Appendectomy: No Hx Carotid Endarterectomy: No Hx Cholecystectomy: No Hx Coronary Artery Bypass Graft: No Hx Coronary Stent: No Hx Tonsillectomy: No - ANESTHESIA Hx Anesthesia: Yes Hx Anesthesia Reactions: No Hx Malignant Hyperthermia: No Meds Allergies/Adverse Reactions: Allergies Allergy/AdvReac Type Severity Reaction Status Date / Time No Known Allergies Allergy Verified 05/19/18 14:34 - Medications Medications: Current Medications Acetaminophen (Tylenol 325mg Tab) 650 mg PO Q6 PRN PRN Reason: Pain, moderate (4-7) Albuterol/Ipratropium (Duoneb 3 Mg/0.5 Mg (3 Ml) Ud) 3 ml IH Q12 [facility] Last Admin: 06/16/18 07:10 Dose: 3 ml Alendronate Sodium (Fosamax) 70 mg PO FR [facility] Amlodipine Besylate (Norvasc) 5 mg PO DAILY [facility] Last Admin: 06/16/18 09:51 Dose: 5 mg Atorvastatin Calcium (Lipitor) 10 mg PO HS [facility] Last Admin: 06/15/18 22:13 Dose: 10 mg Budesonide (Pulmicort Respules) 0.25 mg IH RBID [facility] Last Admin: 06/16/18 07:10 Dose: 0.25 mg Carvedilol (Coreg) 3.125 mg PO Q12H [facility] Last Admin: 06/16/18 01:03 Dose: 3.125 mg Docusate Sodium (Colace) 100 mg PO BID [facility] Last Admin: 06/15/18 16:42 Dose: Not Given Enalapril Maleate (Vasotec) 20 mg PO DAILY [facility] Last Admin: 06/16/18 09:50 Dose: 20 mg Ferrous Sulfate (Feosol) 325 mg PO TID [facility] Last Admin: 06/16/18 09:49 Dose: 325 mg Furosemide (Lasix) 20 mg PO DAILY [facility] Last Admin: 06/14/18 09:11 Dose: 20 mg Guaifenesin (Mucinex La) 600 mg PO Q12 [facility] Last Admin: 06/16/18 09:49 Dose: 600 mg Ipratropium [place] (Atrovent) 0.5 mg IH RQ6 [facility] Last Admin: 06/16/18 07:10 Dose: 0.5 mg Levalbuterol HCl (Xopenex) 0.63 mg INH RQ8 PRN PRN Reason: Wheezing Last Admin: 06/15/18 01:00 Dose: 0.63 mg Lorazepam (Ativan) 0.5 mg PO DAILY [facility] Last Admin: 06/16/18 09:49 Dose: 0.5 mg Metformin HCl (Glucophage) 500 mg PO BID [facility] Last Admin: 06/16/18 09:52 Dose: 500 mg Montelukast Sodium (Singulair) 10 mg PO HS [facility] Last Admin: 06/15/18 22:13 Dose: 10 mg Multivitamins/Minerals (Therapeutic-M Tab) 1 tab PO DAILY [facility] Last Admin: 06/16/18 09:50 Dose: 1 tab Pantoprazole Sodium (Protonix Ec Tab) 40 mg PO DAILY [facility] Last Admin: 06/16/18 09:51 Dose: 40 mg Physical Exam - Constitutional Appears: Well, Non-toxic, No Acute Distress - Head Exam Head Exam: ATRAUMATIC, NORMOCEPHALIC - Extremities Exam Additional comments: Leftlower extremity exam: vascular: dp/pt pulses palpable, CFT <3 secs x 5, Tg warm to cool, periwound erythema noted, no erythema otherwise, no edema noted neuro: unable to obtain derm: left lateralmalleolus wound measuring o.5 X 0.3 cm with 100% granular base, signifncant periwound erythema, no drainage noted on the dressing, no m alodor, no clinical signs of infection ortho: minimal pain on palpation to the wound - Neurological Exam Neurological exam: Alert, Oriented x3 - Psychiatric Exam Psychiatric exam: Normal Affect, Normal Mood Results - Vital Signs Recent Vital Signs: Last Vital Signs Temp 98.1 F 06/16/18 08:00 Pulse 69 06/16/18 09:51 Resp 20 06/16/18 08:00 BP 169/74 H 06/16/18 09:51 Pulse Ox 100 06/16/18 08:00 - Labs Result Diagrams: 06/16/18 10:32 06/16/18 10:32 Labs: Laboratory Results - last 24 hr 06/14/18 06/15/18 06/15/18 05:30 08:40 09:55 Sodium 131 L Potassium 4.5 Chloride 94 L Carbon Dioxide 28 Anion Gap 14 BUN 18 H Creatinine 0.5 L Est GFR ( Amer) > 60 Est GFR (Non-Af Amer) > 60 POC Glucose (mg/dL) Random Glucose 163 H Calcium 8.7 Iron TIBC % Saturation Ferritin 130.0 Vitamin B12 949 H Folate > 20.0 Cortisol AM Sample 20.0 06/15/18 06/15/18 06/15/18 10:40 11:02 16:11 Sodium Potassium Chloride Carbon Dioxide Anion Gap BUN Creatinine Est GFR ( Amer) Est GFR (Non-Af Amer) POC Glucose (mg/dL) 179 H 107 Random Glucose Calcium Iron 32 L TIBC 310 % Saturation 10 L Ferritin Vitamin B12 Folate Cortisol AM Sample 06/15/18 06/16/18 21:59 05:36 Sodium Potassium Chloride Carbon Dioxide Anion Gap BUN Creatinine Est GFR ( Amer) Est GFR (Non-Af Amer) POC Glucose (mg/dL) 110 76 Random Glucose Calcium Iron TIBC % Saturation Ferritin Vitamin B12 Folate Cortisol AM Sample Assessment & Plan - Assessment and Plan (Free Text) Assessment: 88 yo female seen at bedside for a stable left ankle wound Plan: Patient seen and evaluated Chart, labs and vitals reviewed Ashwini and LUIS ANTONIOD to the ankle. Podiatry will continue to follow the patient while in house Patient will follow up with Dr. You upon discharge - Date & Time Date: 06/16/18 Time: 11:25
[2018-06-16 10:59] LABS: BLOOD UREA NITROGEN 21 mg/dl (7-17); CALCIUM 8.6 mg/dL (8.4-10.2); GFR NON-AFRICAN AMERICAN > 60
[2018-06-16] MEDS ORDERED: Tolvaptan 15 MG TAB PO ONE ×2 (11:27→11:45)
--- NOTE | 2018-06-16 11:54 | CP.PCM.PN ---
Subjective - Date & Time of Evaluation Date of Evaluation: 06/16/18 Time of Evaluation: 11:54 - Subjective Subjective: Patient awake and conscious in bed not in acute distress. Patient appears to be stable. Vital signs noted Objective - Vital Signs/Intake and Output Vital Signs (last 24 hours): Temp Pulse Resp BP Pulse Ox 98.1 F 69 20 169/74 H 100 06/16/18 09:00 06/16/18 09:51 06/16/18 09:00 06/16/18 09:51 06/16/18 09:00 - Medications Medications: Current Medications Acetaminophen (Tylenol 325mg Tab) 650 mg PO Q6 PRN PRN Reason: Pain, moderate (4-7) Albuterol/Ipratropium (Duoneb 3 Mg/0.5 Mg (3 Ml) Ud) 3 ml IH Q12 [facility] Last Admin: 06/16/18 07:10 Dose: 3 ml Alendronate Sodium (Fosamax) 70 mg PO FR [facility] Amlodipine Besylate (Norvasc) 5 mg PO DAILY [facility] Last Admin: 06/16/18 09:51 Dose: 5 mg Atorvastatin Calcium (Lipitor) 10 mg PO HS [facility] Last Admin: 06/15/18 22:13 Dose: 10 mg Budesonide (Pulmicort Respules) 0.25 mg IH RBID [facility] Last Admin: 06/16/18 07:10 Dose: 0.25 mg Carvedilol (Coreg) 3.125 mg PO Q12H [facility] Last Admin: 06/16/18 01:03 Dose: 3.125 mg Docusate Sodium (Colace) 100 mg PO BID [facility] Last Admin: 06/15/18 16:42 Dose: Not Given Enalapril Maleate (Vasotec) 20 mg PO DAILY [facility] Last Admin: 06/16/18 09:50 Dose: 20 mg Ferrous Sulfate (Feosol) 325 mg PO TID [facility] Last Admin: 06/16/18 09:49 Dose: 325 mg Furosemide (Lasix) 20 mg PO DAILY [facility] Last Admin: 06/14/18 09:11 Dose: 20 mg Guaifenesin (Mucinex La) 600 mg PO Q12 [facility] Last Admin: 06/16/18 09:49 Dose: 600 mg Ipratropium [place] (Atrovent) 0.5 mg IH RQ6 [facility] Last Admin: 06/16/18 07:10 Dose: 0.5 mg Levalbuterol HCl (Xopenex) 0.63 mg INH RQ8 PRN PRN Reason: Wheezing Last Admin: 06/15/18 01:00 Dose: 0.63 mg Lorazepam (Ativan) 0.5 mg PO DAILY [facility] Last Admin: 06/16/18 09:49 Dose: 0.5 mg Metformin HCl (Glucophage) 500 mg PO BID [facility] Last Admin: 06/16/18 09:52 Dose: 500 mg Montelukast Sodium (Singulair) 10 mg PO HS [facility] Last Admin: 06/15/18 22:13 Dose: 10 mg Multivitamins/Minerals (Therapeutic-M Tab) 1 tab PO DAILY [facility] Last Admin: 06/16/18 09:50 Dose: 1 tab Nystatin (Nystop Topical Powder) 1 applic TOP TID [facility] Pantoprazole Sodium (Protonix Ec Tab) 40 mg PO DAILY [facility] Last Admin: 06/16/18 09:51 Dose: 40 mg - Labs Labs: 06/16/18 10:32 06/16/18 10:32 PT 11.2 Seconds (9.8-13.1) 06/13/18 14:50 INR 1.0 06/13/18 14:50 APTT 39.4 Seconds (25.6-37.1) H 06/13/18 14:50 - Constitutional Appears: No Acute Distress - Eye Exam Eye Exam: Conjunctival injection - ENT Exam ENT Exam: Mucous Membranes Moist - Cardiovascular Exam Cardiovascular Exam: absent: Gallop, JVD, Rubs - GI/Abdominal Exam GI & Abdominal Exam: Soft, Normal Bowel Sounds - Extremities Exam Extremities Exam: absent: Calf Tenderness - Back Exam Back Exam: absent: CVA tenderness (L), CVA tenderness (R) - Neurological Exam Neurological Exam: Alert - Psychiatric Exam Psychiatric exam: Normal Affect - Skin Skin Exam: absent: Cyanosis Assessment and Plan (1) Hyponatremia Status: Acute (2) SIAD (syndrome of inappropriate antidiuresis) Assessment & Plan: hyponatremia secondary to SIADH Pneumonia copd Fall, DM, HTN, hyperlipidemia, anemia CAD the plan serum sodium dropping rapidly this morning 130, therefore we will give Samsca 15 mg stat now and most likely the patient would need perhaps twice a week Samsca Friday and Friday Monitor serum sodium not to rise more than 9 mEq in 24 hrs or so Status: Acute
[2018-06-16 12:40] VITALS: BP 130/82
[2018-06-16 14:27] VITALS: PULSE 82; TEMP 98.7; O2SAT 97
--- NOTE | 2018-06-17 07:25 | PQF ---
PROVIDER RESPONSE TEXT: Anemia of chronic dx REVIEWER QUERY TEXT: Anemia Type Anemia is documented in the Medical Record. If in agreement :please specify the cause (includes susp ected or probable cause) Such as: -- Due to acute blood loss -- Due to chronic blood loss -- Due to iron deficiency -- Due to postoperative blood loss -- Due to chronic disease -- Other, please specify H/H: 10// 32.1-.10.5/30.4->10.6/30.5->9.9/28.7->11.0/33.0->9.9/29.7 H and P:admitted for rectal bleeding Assess: Rectal bleeding Hx rectal prolapse Hx hemorrhoids 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 Nephrology NS Samsca S/P Acute ant wall [place] + CE CT scan CHF O2 JAYESH B-annia Nitrates ASA Lovenox Cardiology Echo good LV fxn S/P Fall etiol?? 2 to above? COPD Prov Atrovent Chronic anxiety Ativan 06/15 GI: Assess: Hgb stable and bleeding appears not to be hemodynamically sig. No observed bleeding since admission. Bleeding could be hemorrhoidal; given option of colonoscopy to r/o polyp, mass, and colitis and currently declines. Status: Acute The patient's Clinical Indicators include: -- Query created by: Maddy Ruiz on 06/16/2018 1:00 PM Electronically signed by: Renny Patel MD 06/17/2018 7:22 AM
--- NOTE | 2018-06-17 07:25 | PQF ---
PROVIDER RESPONSE TEXT: No CHF REVIEWER QUERY TEXT: Heart Failure Acuity and Type Congestive Heart Failure is documented in the Medical Record. Please document the type and acuity: Such as: Type: -- Combined systolic and diastolic (heart failure with reduced ejection fraction and diastolic) dysfu nction -- Diastolic (HFpEF) -- Systolic (HFrEF) -- Left heart failure -- Right heart failure -- Right heart failure due to left heart failure -- High output failure -- End stage heart failure -- Other, please specify Acuity: -- Acute -- Chronic -- Acute on chronic -- Other, please specify H and P includes; S/P Acute ant wall [place] + CE CT scan CHF O2 JAYESH B-annia Nitrates ASA Lovenox Cardiology Echo good LV fxn --coreg and Lasix The patient's Clinical Indicators include: -- Query created by: Maddy Ruiz on 06/16/2018 11:24 AM Electronically signed by: Renny Patel MD 06/17/2018 7:22 AM
--- NOTE | 2018-06-17 07:25 | PQF ---
PROVIDER RESPONSE TEXT: Agree with nurses assessment REVIEWER QUERY TEXT: Conflicting Documentation Clarification Pressure ulcer is documented in the Medical Record.If in agreement : Please specify the location, pre sent on admission status and/or stage:Location and laterality of pressure ulcer(s): versus No Pressur e Ulcer; Healing DM ulcer DM etc. Please also document if the condition is: -- Confirmed and current -- Confirmed, treated and resolved -- Ruled out: DM ulcer: No pressure ulcer -- Other, please specify 06/13 Nurses Admission Assessment Physical: Left Foot ; DM ulcer , healing: pink area to ankle -- 06/13:Attending order:Wound Care referral: Reason for Exam: healing DM ulcer on left heel 06/15: Nurses Note: Pressure Ulcer Assessment: Left Ankle: Partial thickness loss of dermis presentin g as a shallow ulcer 06/15 Wound RN: Skin integrity intact on sacrum The patient's Clinical Indicators include: -- Query created by: Maddy Ruiz on 06/16/2018 12:08 PM Electronically signed by: Renny Patel MD 06/17/2018 7:22 AM
[2018-06-19] MEDS ORDERED: ALENDRONATE 70 MG TAB PO SCH (01:09)
== END 2018-06-16 15:10 | DRG 394 ==
LOC: H.ER 11:48 → H.ERHOLD 15:44 → H.TEL 17:13
PROVIDERS: ADMIT Family Medicine Geriatric Medicine; ATTEND Family Medicine Geriatric Medicine
DX: K64.4 Residual hemorrhoidal skin tags (principal); E22.2 Syndrome of inappropriate secretion of antidiuretic hormone; D63.8 Anemia in other chronic diseases classified elsewhere; E11.9 Type 2 diabetes mellitus without complications; L89.522 Pressure ulcer of left ankle, stage 2; J44.9 Chronic obstructive pulmonary disease, unspecified; I10 Essential (primary) hypertension; I25.10 Atherosclerotic heart disease of native coronary artery without angina pectoris; E78.5 Hyperlipidemia, unspecified; E78.00 Pure hypercholesterolemia, unspecified; F41.8 Other specified anxiety disorders; Z87.01 Personal history of pneumonia (recurrent); I25.2 Old myocardial infarction; Z79.83 Long term (current) use of bisphosphonates; Z86.73 Personal history of transient ischemic attack (TIA), and cerebral infarction without residual deficits; Z79.84 Long term (current) use of oral hypoglycemic drugs; Z91.81 History of falling; Z87.891 Personal history of nicotine dependence

== ENCOUNTER 2018-06-16 13:16 | Inpatient (IN) | payer OTHER, MEDICAID ==
[2018-06-16 15:23] VITALS: BMI 19.8
[2018-06-16] MEDS ORDERED: Levalbuterol 0.63 MG/3 ML Inhal Soln UD INH PRN (15:33)
--- NOTE | 2018-06-16 19:12 | CP.PCM.HP ---
History of Present Illness - History of Present Illness History of Present Illness: 88 yo admitted for deconditioning Present on Admission - Present on Admission Any Indicators Present on Admission: No Past Patient History - Past Medical History & Family History Past Medical History?: Yes - Past Social History Smoking Status: Former Smoker - CARDIAC Hx Cardiac Disorders: Yes - PULMONARY Hx Respiratory Disorders: Yes - NEUROLOGICAL Hx Neurological Disorder: Yes - HEENT Hx HEENT Problems: No - RENAL Hx Chronic Kidney Disease: No - ENDOCRINE/METABOLIC Hx Hyperthyroidism: No Hx Hypothyroidism: No - HEMATOLOGICAL/ONCOLOGICAL Hx Anemia: No Hx Human Immunodeficiency Virus (HIV): No Hx Sickle Cell Disease: No - INTEGUMENTARY Hx Dermatological Problems: No - MUSCULOSKELETAL/RHEUMATOLOGICAL Hx Arthritis: No Hx Fractures: Yes Hx Osteoporosis: No Hx Rheumatoid Arthritis: No - GASTROINTESTINAL Hx Crohn's Disease: No Hx Diverticulitis: No Hx Gall Bladder Disease: No Hx Gastritis: No Hx Pancreatitis: No - GENITOURINARY/GYNECOLOGICAL Hx Sexually Transmitted Disorders: No - PSYCHIATRIC Hx Anxiety: Yes Hx Bipolar Disorder: No Hx Depression: Yes Hx Paranoia: Yes Hx Post Traumatic Stress Disorder: No Hx Schizophrenia: No - SURGICAL HISTORY Hx Appendectomy: No Hx Carotid Endarterectomy: No Hx Cholecystectomy: No Hx Coronary Artery Bypass Graft: No Hx Coronary Stent: No Hx Tonsillectomy: No - ANESTHESIA Hx Anesthesia: Yes Hx Anesthesia Reactions: No Hx Malignant Hyperthermia: No Meds Allergies/Adverse Reactions: Allergies Allergy/AdvReac Type Severity Reaction Status Date / Time No Known Allergies Allergy Verified 06/16/18 14:16 Physical Exam - Respiratory Exam Respiratory Exam: NORMAL BREATHING PATTERN - Cardiovascular Exam Cardiovascular Exam: Tachycardia - GI/Abdominal Exam GI & Abdominal Exam: Normal Bowel Sounds Results - Vital Signs Recent Vital Signs: Last Vital Signs Temp 98.7 F 06/16/18 16:22 Pulse 66 06/16/18 16:22 Resp 20 06/16/18 16:22 BP 100/45 L 06/16/18 16:22 Pulse Ox 95 06/16/18 16:22 Assessment & Plan - Assessment and Plan (Free Text) Assessment: Decndioning TCU Rectal bleeding stable Hx rectal prolapse Hx hemorrhoids Surgery GI Refusing w/u 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 Nephrology Samsca S/P Acute ant wall [place] + CE CT scan CHF O2 JAYESH B-annia Nitrates ASA Lovenox Cardiology Echo good LV fxn S/P Fall etiol?? 2 to above? COPD Prov Atrovent Chronic anxiety Ativan - Date & Time Date: 06/16/18 Time: 22:22
--- NOTE | 2018-06-16 19:44 | CP.PCM.CON ---
History of Present Illness - History of Present Illness History of Present Illness: Patient had been admitted with episode of rectal bleeding with hard bowel movements. Currently without abdominal pain and no bleeding since admission. Review of Systems - Constitutional Constitutional: absent: Chills - EENT Eyes: absent: Blurred Vision Ears: absent: Ear Discharge Nose/Mouth/Throat: absent: Nasal Congestion - Cardiovascular Cardiovascular: absent: Chest Pain - Respiratory Respiratory: absent: Cough - Gastrointestinal Gastrointestinal: absent: Abdominal Pain - Genitourinary Genitourinary: absent: Change in Urinary Stream Past Patient History - Past Medical History & Family History Past Medical History?: Yes - Past Social History Smoking Status: Former Smoker - CARDIAC Hx Cardiac Disorders: Yes - PULMONARY Hx Respiratory Disorders: Yes - NEUROLOGICAL Hx Neurological Disorder: Yes - HEENT Hx HEENT Problems: No - RENAL Hx Chronic Kidney Disease: No - ENDOCRINE/METABOLIC Hx Hyperthyroidism: No Hx Hypothyroidism: No - HEMATOLOGICAL/ONCOLOGICAL Hx Anemia: No Hx Human Immunodeficiency Virus (HIV): No Hx Sickle Cell Disease: No - INTEGUMENTARY Hx Dermatological Problems: No - MUSCULOSKELETAL/RHEUMATOLOGICAL Hx Arthritis: No Hx Fractures: Yes Hx Osteoporosis: No Hx Rheumatoid Arthritis: No - GASTROINTESTINAL Hx Crohn's Disease: No Hx Diverticulitis: No Hx Gall Bladder Disease: No Hx Gastritis: No Hx Pancreatitis: No - GENITOURINARY/GYNECOLOGICAL Hx Sexually Transmitted Disorders: No - PSYCHIATRIC Hx Anxiety: Yes Hx Bipolar Disorder: No Hx Depression: Yes Hx Paranoia: Yes Hx Post Traumatic Stress Disorder: No Hx Schizophrenia: No - SURGICAL HISTORY Hx Appendectomy: No Hx Carotid Endarterectomy: No Hx Cholecystectomy: No Hx Coronary Artery Bypass Graft: No Hx Coronary Stent: No Hx Tonsillectomy: No - ANESTHESIA Hx Anesthesia: Yes Hx Anesthesia Reactions: No Hx Malignant Hyperthermia: No Meds Allergies/Adverse Reactions: Allergies Allergy/AdvReac Type Severity Reaction Status Date / Time No Known Allergies Allergy Verified 06/16/18 14:16 - Medications Medications: Current Medications Acetaminophen (Tylenol 325mg Tab) 650 mg PO Q6 PRN PRN Reason: Pain, moderate (4-7) Albuterol/Ipratropium (Duoneb 3 Mg/0.5 Mg (3 Ml) Ud) 3 ml IH Q12 [facility] Alendronate Sodium (Fosamax) 70 mg PO FR [facility] Amlodipine Besylate (Norvasc) 5 mg PO DAILY [facility] Atorvastatin Calcium (Lipitor) 10 mg PO HS [facility] Budesonide (Pulmicort Respules) 0.25 mg IH Q12 [facility] Carvedilol (Coreg) 3.125 mg PO Q12@0900,2100 [facility] Docusate Sodium (Colace) 100 mg PO BID [facility] Last Admin: 06/16/18 16:46 Dose: 100 mg Enalapril Maleate (Vasotec) 20 mg PO DAILY [facility] Ferrous Sulfate (Feosol) 325 mg PO TID [facility] Last Admin: 06/16/18 16:46 Dose: 325 mg Guaifenesin (Mucinex La) 600 mg PO Q12 [facility] Ipratropium [place] (Atrovent) 0.5 mg IH RQ6 [facility] Levalbuterol HCl (Xopenex) 0.63 mg INH RQ8 PRN PRN Reason: Wheezing Lorazepam (Ativan) 0.5 mg PO DAILY [facility] Metformin HCl (Glucophage) 500 mg PO BID [facility] Montelukast Sodium (Singulair) 10 mg PO HS [facility] Multivitamins/Minerals (Therapeutic-M Tab) 1 tab PO DAILY [facility] Nystatin (Nystop Topical Powder) 1 applic TOP TID [facility] Last Admin: 06/16/18 17:09 Dose: 1 applic Pantoprazole Sodium (Protonix Ec Tab) 40 mg PO DAILY [facility] Physical Exam - Constitutional Appears: No Acute Distress - Head Exam Head Exam: ATRAUMATIC - Eye Exam Eye Exam: Normal appearance - ENT Exam ENT Exam: Normal Exam - Neck Exam Neck exam: Positive for: Full Rom - Respiratory Exam Respiratory Exam: Clear to Auscultation Bilateral - Cardiovascular Exam Cardiovascular Exam: REGULAR RHYTHM, +S1, +S2 - GI/Abdominal Exam GI & Abdominal Exam: Normal Bowel Sounds, Soft. absent: Tenderness Results - Vital Signs Recent Vital Signs: Last Vital Signs Temp 98.7 F 06/16/18 16:22 Pulse 66 06/16/18 16:22 Resp 20 06/16/18 16:22 BP 100/45 L 06/16/18 16:22 Pulse Ox 95 06/16/18 16:22 Assessment & Plan (1) GI bleed Assessment and Plan: No further bleeding over past 2 days. Patient had declined colonoscopy. Will follow clinically. Status: Acute
[2018-06-16] MEDS: Albuterol-Ipratrop 3 mg / 0.5 (3 ml) UD IH SCH (20:30)
[2018-06-16] MEDS: Budesonide 0.25 mg/2 ml Inhal Susp UD IH SCH (20:30)
[2018-06-16] MEDS: Ipratropium 0.02% Inhal Soln (0.5 mg/2.5 ml) UD IH SCH (20:31)
[2018-06-16] MEDS: guaiFENesin 600 mg ER Tab PO SCH ×2 (23:17→23:20)
[2018-06-17] MEDS: Ipratropium 0.02% Inhal Soln (0.5 mg/2.5 ml) UD IH SCH ×4 (01:13→20:00)
[2018-06-17] MEDS: Albuterol-Ipratrop 3 mg / 0.5 (3 ml) UD IH SCH ×3 (07:35→20:00)
[2018-06-17] MEDS: Budesonide 0.25 mg/2 ml Inhal Susp UD IH SCH ×3 (07:35→20:00)
[2018-06-17] MEDS ORDERED: Patient's Own Med (Multivitamin [Multi-Vitamin Daily] 1 TAB) PO SCH (09:00)
[2018-06-17] MEDS: guaiFENesin 600 mg ER Tab PO SCH ×2 (09:39→21:34)
[2018-06-17] MEDS: Pantoprazole 40 mg EC Tab PO SCH (09:40)
[2018-06-17] MEDS: Multivitamin With Minerals Tab PO SCH (09:40)
[2018-06-17 11:46] LABS: BLOOD UREA NITROGEN 21 mg/dl (7-17); CALCIUM 8.1 mg/dL (8.4-10.2); GFR NON-AFRICAN AMERICAN > 60
--- NOTE | 2018-06-17 11:46 | CP.PCM.CON ---
History of Present Illness - History of Present Illness History of Present Illness: Patient transferred from the floor for subacute rehab. She was admitted with rectal bleeding which has been stopped and also presented with severe hyponatremia as she was treated with Samsca and the last dose was given yesterday 15 mg. this patient whole is 88 years of age female known to me with history of hyponatremia diagnosed SIADH with Previously required to be given Samsca on few time to correct the hyponatremia patient also known to have multitude of other medical problem related to coronary artery disease hypertension hyperlipidemia and COPD and the patient presented this time to the emergency room was rectal bleeding Past medical history as noted above Hyponatremia and COPD and CAD among other past medical history Review of Systems - Constitutional Constitutional: absent: Chills, Fever - EENT Nose/Mouth/Throat: absent: Epistaxis, Post Nasal Drip - Cardiovascular Cardiovascular: Dyspnea on Exertion. absent: Acrocyanosis, Edema - Respiratory Respiratory: Dyspnea on Exertion. absent: Cough - Gastrointestinal Gastrointestinal: absent: Coffee Ground Emesis, Cramping - Genitourinary Genitourinary: Nocturia - Musculoskeletal Musculoskeletal: Muscle Weakness. absent: Numbness - Neurological Neurological: absent: Confusion, Focal Weakness - Endocrine Endocrine: Fatigue - Hematologic/Lymphatic Hematologic: absent: Easy Bleeding, Easy Bruising Past Patient History - Past Medical History & Family History Past Medical History?: Yes - Past Social History Smoking Status: Former Smoker - CARDIAC Hx Cardiac Disorders: Yes - PULMONARY Hx Respiratory Disorders: Yes - NEUROLOGICAL Hx Neurological Disorder: Yes - HEENT Hx HEENT Problems: No - RENAL Hx Chronic Kidney Disease: No - ENDOCRINE/METABOLIC Hx Hyperthyroidism: No Hx Hypothyroidism: No - HEMATOLOGICAL/ONCOLOGICAL Hx Anemia: No Hx Human Immunodeficiency Virus (HIV): No Hx Sickle Cell Disease: No - INTEGUMENTARY Hx Dermatological Problems: No - MUSCULOSKELETAL/RHEUMATOLOGICAL Hx Arthritis: No Hx Fractures: Yes Hx Osteoporosis: No Hx Rheumatoid Arthritis: No - GASTROINTESTINAL Hx Crohn's Disease: No Hx Diverticulitis: No Hx Gall Bladder Disease: No Hx Gastritis: No Hx Pancreatitis: No - GENITOURINARY/GYNECOLOGICAL Hx Sexually Transmitted Disorders: No - PSYCHIATRIC Hx Anxiety: Yes Hx Bipolar Disorder: No Hx Depression: Yes Hx Paranoia: Yes Hx Post Traumatic Stress Disorder: No Hx Schizophrenia: No - SURGICAL HISTORY Hx Appendectomy: No Hx Carotid Endarterectomy: No Hx Cholecystectomy: No Hx Coronary Artery Bypass Graft: No Hx Coronary Stent: No Hx Tonsillectomy: No - ANESTHESIA Hx Anesthesia: Yes Hx Anesthesia Reactions: No Hx Malignant Hyperthermia: No Meds Allergies/Adverse Reactions: Allergies Allergy/AdvReac Type Severity Reaction Status Date / Time No Known Allergies Allergy Verified 06/16/18 14:16 - Medications Medications: Current Medications Acetaminophen (Tylenol 325mg Tab) 650 mg PO Q6 PRN PRN Reason: Pain, moderate (4-7) Albuterol/Ipratropium (Duoneb 3 Mg/0.5 Mg (3 Ml) Ud) 3 ml IH Q12 [facility] Last Admin: 06/17/18 07:35 Dose: 3 ml Alendronate Sodium (Fosamax) 70 mg PO FR [facility] Amlodipine Besylate (Norvasc) 5 mg PO DAILY [facility] Last Admin: 06/17/18 09:39 Dose: 5 mg Atorvastatin Calcium (Lipitor) 10 mg PO HS [facility] Last Admin: 06/16/18 23:20 Dose: Not Given Budesonide (Pulmicort Respules) 0.25 mg IH Q12 [facility] Last Admin: 06/17/18 07:35 Dose: 0.25 mg Carvedilol (Coreg) 3.125 mg PO Q12@0900,2100 [facility] Last Admin: 06/17/18 09:38 Dose: 3.125 mg Docusate Sodium (Colace) 100 mg PO BID [facility] Last Admin: 06/17/18 09:38 Dose: 100 mg Enalapril Maleate (Vasotec) 20 mg PO DAILY [facility] Last Admin: 06/17/18 09:40 Dose: 20 mg Ferrous Sulfate (Feosol) 325 mg PO TID [facility] Last Admin: 06/17/18 09:38 Dose: 325 mg Guaifenesin (Mucinex La) 600 mg PO Q12 [facility] Last Admin: 06/17/18 09:39 Dose: 600 mg Hydrocortisone (Hydrocortisone 2.5%) 1 applic TOP BID [facility] Last Admin: 06/17/18 09:39 Dose: 1 applic Ipratropium [place] (Atrovent) 0.5 mg IH RQ6 [facility] Last Admin: 06/17/18 01:13 Dose: Not Given Levalbuterol HCl (Xopenex) 0.63 mg INH RQ8 PRN PRN Reason: Wheezing Lorazepam (Ativan) 0.5 mg PO DAILY [facility] Last Admin: 06/17/18 09:43 Dose: 0.5 mg Metformin HCl (Glucophage) 500 mg PO BID [facility] Last Admin: 06/17/18 09:39 Dose: 500 mg Montelukast Sodium (Singulair) 10 mg PO HS [facility] Last Admin: 06/16/18 23:17 Dose: 10 mg Multivitamins/Minerals (Therapeutic-M Tab) 1 tab PO DAILY [facility] Last Admin: 06/17/18 09:40 Dose: 1 tab Nystatin (Nystop Topical Powder) 1 applic TOP TID [facility] Last Admin: 06/17/18 09:39 Dose: 1 applic Pantoprazole Sodium (Protonix Ec Tab) 40 mg PO DAILY [facility] Last Admin: 06/17/18 09:40 Dose: 40 mg Physical Exam - Constitutional Appears: No Acute Distress - Eye Exam Eye Exam: Conjunctival injection - ENT Exam ENT Exam: Mucous Membranes Moist - Neck Exam Neck exam: Negative for: Lymphadenopathy - Respiratory Exam Respiratory Exam: NORMAL BREATHING PATTERN. absent: Chest Wall Tenderness - Cardiovascular Exam Cardiovascular Exam: absent: Gallop, JVD, Rubs - GI/Abdominal Exam GI & Abdominal Exam: Normal Bowel Sounds - Extremities Exam Extremities exam: Negative for: calf tenderness - Back Exam Back exam: absent: CVA tenderness (L), CVA tenderness (R) - Neurological Exam Neurological exam: Alert - Psychiatric Exam Psychiatric exam: Normal Affect Results - Vital Signs Recent Vital Signs: Last Vital Signs Temp 97.5 F L 06/17/18 08:07 Pulse 62 06/17/18 09:39 Resp 18 06/17/18 08:07 BP 146/77 06/17/18 09:39 Pulse Ox 100 06/17/18 08:07 - Labs Result Diagrams: 06/17/18 11:30 Labs: Laboratory Results - last 24 hr 06/16/18 06/17/18 06/17/18 21:32 05:14 10:20 POC Glucose (mg/dL) 131 H 136 H 300 H Assessment & Plan - Assessment and Plan (Free Text) Assessment: hyponatremia secondary to SIADH Pneumonia copd Fall, DM, HTN, hyperlipidemia, anemia CAD the plan Patient was given Samsca 15 mg yesterday and she may need that twice a week perhaps Friday and Friday because of the persistent hyponatremia. Waiting for BMP to be reported Monitor serum sodium not to rise somewhere between 8-10 mEq in 24 hours
--- NOTE | 2018-06-17 12:50 | CP.PCM.CON ---
History of Present Illness - History of Present Illness History of Present Illness: THE PATIENT IS AN 88 YEAR OLD FEMALE WHO HAS A HISTORY OF CAD, HYPERTENSION, HYPERLIPIDEMIA, COPD AND TYPE 2 DM. SHE ALSO HAS HEMORRHOIDS AND WAS ADMITTED TO [facility] WITH RECTAL BLEEDING. SHE DECLINED A GI MÁRQUEZ AND IS NOT ADMITTED TO TCU. CARDIOLOGY WAS ASKED TO FOLLOW HER. SHE DENIES CHEST PAIN OR SOB. Past Patient History - Past Medical History & Family History Past Medical History?: Yes - Past Social History Smoking Status: Former Smoker - CARDIAC Hx Cardiac Disorders: Yes - PULMONARY Hx Respiratory Disorders: Yes - NEUROLOGICAL Hx Neurological Disorder: Yes - HEENT Hx HEENT Problems: No - RENAL Hx Chronic Kidney Disease: No - ENDOCRINE/METABOLIC Hx Hyperthyroidism: No Hx Hypothyroidism: No - HEMATOLOGICAL/ONCOLOGICAL Hx Anemia: No Hx Human Immunodeficiency Virus (HIV): No Hx Sickle Cell Disease: No - INTEGUMENTARY Hx Dermatological Problems: No - MUSCULOSKELETAL/RHEUMATOLOGICAL Hx Arthritis: No Hx Fractures: Yes Hx Osteoporosis: No Hx Rheumatoid Arthritis: No - GASTROINTESTINAL Hx Crohn's Disease: No Hx Diverticulitis: No Hx Gall Bladder Disease: No Hx Gastritis: No Hx Pancreatitis: No - GENITOURINARY/GYNECOLOGICAL Hx Sexually Transmitted Disorders: No - PSYCHIATRIC Hx Anxiety: Yes Hx Bipolar Disorder: No Hx Depression: Yes Hx Paranoia: Yes Hx Post Traumatic Stress Disorder: No Hx Schizophrenia: No - SURGICAL HISTORY Hx Appendectomy: No Hx Carotid Endarterectomy: No Hx Cholecystectomy: No Hx Coronary Artery Bypass Graft: No Hx Coronary Stent: No Hx Tonsillectomy: No - ANESTHESIA Hx Anesthesia: Yes Hx Anesthesia Reactions: No Hx Malignant Hyperthermia: No Meds Allergies/Adverse Reactions: Allergies Allergy/AdvReac Type Severity Reaction Status Date / Time No Known Allergies Allergy Verified 06/16/18 14:16 - Medications Medications: Current Medications Acetaminophen (Tylenol 325mg Tab) 650 mg PO Q6 PRN PRN Reason: Pain, moderate (4-7) Albuterol/Ipratropium (Duoneb 3 Mg/0.5 Mg (3 Ml) Ud) 3 ml IH Q12 [facility] Last Admin: 06/17/18 07:35 Dose: 3 ml Alendronate Sodium (Fosamax) 70 mg PO FR [facility] Amlodipine Besylate (Norvasc) 5 mg PO DAILY [facility] Last Admin: 06/17/18 09:39 Dose: 5 mg Atorvastatin Calcium (Lipitor) 10 mg PO HS [facility] Last Admin: 06/16/18 23:20 Dose: Not Given Budesonide (Pulmicort Respules) 0.25 mg IH Q12 [facility] Last Admin: 06/17/18 07:35 Dose: 0.25 mg Carvedilol (Coreg) 3.125 mg PO Q12@0900,2100 [facility] Last Admin: 06/17/18 09:38 Dose: 3.125 mg Docusate Sodium (Colace) 100 mg PO BID [facility] Last Admin: 06/17/18 09:38 Dose: 100 mg Enalapril Maleate (Vasotec) 20 mg PO DAILY [facility] Last Admin: 06/17/18 09:40 Dose: 20 mg Ferrous Sulfate (Feosol) 325 mg PO TID [facility] Last Admin: 06/17/18 09:38 Dose: 325 mg Guaifenesin (Mucinex La) 600 mg PO Q12 [facility] Last Admin: 06/17/18 09:39 Dose: 600 mg Hydrocortisone (Hydrocortisone 2.5%) 1 applic TOP BID [facility] Last Admin: 06/17/18 09:39 Dose: 1 applic Ipratropium [place] (Atrovent) 0.5 mg IH RQ6 [facility] Last Admin: 06/17/18 01:13 Dose: Not Given Levalbuterol HCl (Xopenex) 0.63 mg INH RQ8 PRN PRN Reason: Wheezing Lorazepam (Ativan) 0.5 mg PO DAILY [facility] Last Admin: 06/17/18 09:43 Dose: 0.5 mg Metformin HCl (Glucophage) 500 mg PO BID [facility] Last Admin: 06/17/18 09:39 Dose: 500 mg Montelukast Sodium (Singulair) 10 mg PO HS [facility] Last Admin: 06/16/18 23:17 Dose: 10 mg Multivitamins/Minerals (Therapeutic-M Tab) 1 tab PO DAILY [facility] Last Admin: 06/17/18 09:40 Dose: 1 tab Nystatin (Nystop Topical Powder) 1 applic TOP TID [facility] Last Admin: 06/17/18 09:39 Dose: 1 applic Pantoprazole Sodium (Protonix Ec Tab) 40 mg PO DAILY [facility] Last Admin: 06/17/18 09:40 Dose: 40 mg Physical Exam - Respiratory Exam Respiratory Exam: Clear to Auscultation Bilateral - Cardiovascular Exam Cardiovascular Exam: REGULAR RHYTHM, +S1, +S2 - Extremities Exam Extremities exam: Positive for: normal inspection Results - Vital Signs Recent Vital Signs: Last Vital Signs Temp 97.5 F L 06/17/18 08:07 Pulse 62 06/17/18 09:39 Resp 18 06/17/18 08:07 BP 146/77 06/17/18 09:39 Pulse Ox 100 06/17/18 08:07 - Labs Result Diagrams: 06/17/18 11:30 Labs: Laboratory Results - last 24 hr 06/16/18 06/17/18 06/17/18 21:32 05:14 10:20 Sodium Potassium Chloride Carbon Dioxide Anion Gap BUN Creatinine Est GFR ( Amer) Est GFR (Non-Af Amer) POC Glucose (mg/dL) 131 H 136 H 300 H Random Glucose Calcium 06/17/18 11:30 Sodium 131 L Potassium 4.3 Chloride 94 L Carbon Dioxide 26 Anion Gap 15 BUN 21 H Creatinine 0.5 L Est GFR ( Amer) > 60 Est GFR (Non-Af Amer) > 60 POC Glucose (mg/dL) Random Glucose 215 H Calcium 8.1 L Assessment & Plan - Assessment and Plan (Free Text) Assessment: CAD WITH RECENT AWMI-STABLE HYPERTENSION HYPERLIPIDEMIA TYPE 2 DM HEMORRHOIDS Plan: CONTINUE CAEVEDILOL, ATORVASTATIN, AMLODIPINE, ENALAPRIL, METFORMEN AND COPD MEDS ASPIRIN AND CLOPIDOGREL WERE PLACED ON HOLD DUE TO THE GI BLEED
[2018-06-17] MEDS ORDERED: Magnesium Hydroxide Susp 30 ml UD PO PRN (18:06)
--- NOTE | 2018-06-17 18:09 | CP.PCM.CON ---
History of Present Illness - History of Present Illness History of Present Illness: Dr Lewis PMR consultation on Mounika Harris, born 1930, who has been admitted to the [facility] for ALVA following an admission with a GI bleed. Noted to have hemorrhoids. GI consult was done and there has not been further GI bleeding. Decreased function and in need of therapy prior to d/c home. She is alone. She has had falls in the past Review of Systems - Constitutional Constitutional: absent: Chills, Excessive Sweating - EENT Eyes: absent: Change in Vision, Discharge Ears: absent: Ear Discharge, Ear Pain - Cardiovascular Cardiovascular: absent: Chest Pain - Respiratory Respiratory: absent: Dyspnea, Hemoptysis - Gastrointestinal Gastrointestinal: Constipation. absent: Belching - Musculoskeletal Musculoskeletal: Limited Range of Motion (right shoulder, not new) - Integumentary Integumentary: absent: Bleeding Lesions - Neurological Neurological: absent: Abnormal Movements - Psychiatric Psychiatric: Anxiety (mild) Past Patient History - Past Medical History & Family History Past Medical History?: Yes - Past Social History Smoking Status: Former Smoker Alcohol: None Drugs: Denies Home Situation {Lives}: Alone - CARDIAC Hx Cardiac Disorders: Yes - PULMONARY Hx Respiratory Disorders: Yes - NEUROLOGICAL Hx Neurological Disorder: Yes - HEENT Hx HEENT Problems: No - RENAL Hx Chronic Kidney Disease: No - ENDOCRINE/METABOLIC Hx Hyperthyroidism: No Hx Hypothyroidism: No - HEMATOLOGICAL/ONCOLOGICAL Hx Anemia: No Hx Human Immunodeficiency Virus (HIV): No Hx Sickle Cell Disease: No - INTEGUMENTARY Hx Dermatological Problems: No - MUSCULOSKELETAL/RHEUMATOLOGICAL Hx Arthritis: No Hx Fractures: Yes Hx Osteoporosis: No Hx Rheumatoid Arthritis: No - GASTROINTESTINAL Hx Crohn's Disease: No Hx Diverticulitis: No Hx Gall Bladder Disease: No Hx Gastritis: No Hx Pancreatitis: No - GENITOURINARY/GYNECOLOGICAL Hx Sexually Transmitted Disorders: No - PSYCHIATRIC Hx Anxiety: Yes Hx Bipolar Disorder: No Hx Depression: Yes Hx Paranoia: Yes Hx Post Traumatic Stress Disorder: No Hx Schizophrenia: No - SURGICAL HISTORY Hx Appendectomy: No Hx Carotid Endarterectomy: No Hx Cholecystectomy: No Hx Coronary Artery Bypass Graft: No Hx Coronary Stent: No Hx Tonsillectomy: No - ANESTHESIA Hx Anesthesia: Yes Hx Anesthesia Reactions: No Hx Malignant Hyperthermia: No Meds Allergies/Adverse Reactions: Allergies Allergy/AdvReac Type Severity Reaction Status Date / Time No Known Allergies Allergy Verified 06/16/18 14:16 - Medications Medications: Current Medications Acetaminophen (Tylenol 325mg Tab) 650 mg PO Q6 PRN PRN Reason: Pain, moderate (4-7) Albuterol/Ipratropium (Duoneb 3 Mg/0.5 Mg (3 Ml) Ud) 3 ml IH Q12 [facility] Last Admin: 06/17/18 13:49 Dose: Not Given Alendronate Sodium (Fosamax) 70 mg PO [facility] Amlodipine Besylate (Norvasc) 5 mg PO DAILY [facility] Last Admin: 06/17/18 09:39 Dose: 5 mg Atorvastatin Calcium (Lipitor) 10 mg PO HS [facility] Last Admin: 06/16/18 23:20 Dose: Not Given Budesonide (Pulmicort Respules) 0.25 mg IH Q12 [facility] Last Admin: 06/17/18 13:49 Dose: Not Given Carvedilol (Coreg) 3.125 mg PO Q12@0900,2100 [facility] Last Admin: 06/17/18 09:38 Dose: 3.125 mg Docusate Sodium (Colace) 100 mg PO TID [facility] Enalapril Maleate (Vasotec) 20 mg PO DAILY [facility] Last Admin: 06/17/18 09:40 Dose: 20 mg Ferrous Sulfate (Feosol) 325 mg PO TID [facility] Last Admin: 06/17/18 17:09 Dose: 325 mg Guaifenesin (Mucinex La) 600 mg PO Q12 [facility] Last Admin: 06/17/18 09:39 Dose: 600 mg Hydrocortisone (Hydrocortisone 2.5%) 1 applic TOP BID [facility] Last Admin: 06/17/18 17:09 Dose: 1 applic Ipratropium [place] (Atrovent) 0.5 mg IH RQ6 [facility] Last Admin: 06/17/18 13:48 Dose: 0.5 mg Levalbuterol HCl (Xopenex) 0.63 mg INH RQ8 PRN PRN Reason: Wheezing Lorazepam (Ativan) 0.5 mg PO DAILY [facility] Last Admin: 06/17/18 09:43 Dose: 0.5 mg Magnesium Hydroxide (Milk Of Magnesia) 30 ml PO DAILY PRN PRN Reason: Constipation Metformin HCl (Glucophage) 500 mg PO BID [facility] Last Admin: 06/17/18 17:09 Dose: 500 mg Montelukast Sodium (Singulair) 10 mg PO [facility] Last Admin: 06/16/18 23:17 Dose: 10 mg Multivitamins/Minerals (Therapeutic-M Tab) 1 tab PO DAILY [facility] Last Admin: 06/17/18 09:40 Dose: 1 tab Nystatin (Nystop Topical Powder) 1 applic TOP TID [facility] Last Admin: 06/17/18 17:08 Dose: 1 applic Pantoprazole Sodium (Protonix Ec Tab) 40 mg PO DAILY [facility] Last Admin: 06/17/18 09:40 Dose: 40 mg Sennosides (Senokot Tab) 8.6 mg PO [facility] Physical Exam - Constitutional Appears: Non-toxic, No Acute Distress - Head Exam Head Exam: ATRAUMATIC, NORMAL INSPECTION, NORMOCEPHALIC - Eye Exam Eye Exam: EOMI - ENT Exam ENT Exam: Mucous Membranes Moist - Respiratory Exam Respiratory Exam: NORMAL BREATHING PATTERN - Cardiovascular Exam Cardiovascular Exam: REGULAR RHYTHM - GI/Abdominal Exam GI & Abdominal Exam: absent: Distended - Extremities Exam Extremities exam: Negative for: full ROM (limited right shoulder ROM) - Neurological Exam Neurological exam: Alert, CN II-XII Intact, Oriented x3 - Psychiatric Exam Psychiatric exam: Normal Affect, Normal Mood - Skin Skin Exam: Warm Results - Vital Signs Recent Vital Signs: Last Vital Signs Temp 98.5 F 06/17/18 15:51 Pulse 72 06/17/18 15:51 Resp 20 06/17/18 15:51 BP 158/75 H 06/17/18 15:51 Pulse Ox 96 06/17/18 15:51 - Labs Result Diagrams: 06/17/18 11:30 Labs: Laboratory Results - last 24 hr 06/16/18 06/17/18 06/17/18 21:32 05:14 10:20 Sodium Potassium Chloride Carbon Dioxide Anion Gap BUN Creatinine Est GFR ( Amer) Est GFR (Non-Af Amer) POC Glucose (mg/dL) 131 H 136 H 300 H Random Glucose Calcium 06/17/18 06/17/18 11:30 16:01 Sodium 131 L Potassium 4.3 Chloride 94 L Carbon Dioxide 26 Anion Gap 15 BUN 21 H Creatinine 0.5 L Est GFR ( Amer) > 60 Est GFR (Non-Af Amer) > 60 POC Glucose (mg/dL) 96 Random Glucose 215 H Calcium 8.1 L Assessment & Plan - Assessment and Plan (Free Text) Assessment: No pain + constipation, added to the bowel regimen ambulating 60' with RW continue current therapies to help with functional independence
--- NOTE | 2018-06-17 18:22 | CP.PCM.PN ---
Subjective - Date & Time of Evaluation Date of Evaluation: 06/17/18 Time of Evaluation: 22:22 - Subjective Subjective: Doing well No bleeding Objective - Vital Signs/Intake and Output Vital Signs (last 24 hours): Temp Pulse Resp BP Pulse Ox 98.5 F 72 20 158/75 H 96 06/17/18 15:51 06/17/18 15:51 06/17/18 15:51 06/17/18 15:51 06/17/18 15:51 - Medications Medications: Current Medications Acetaminophen (Tylenol 325mg Tab) 650 mg PO Q6 PRN PRN Reason: Pain, moderate (4-7) Albuterol/Ipratropium (Duoneb 3 Mg/0.5 Mg (3 Ml) Ud) 3 ml IH Q12 [facility] Last Admin: 06/17/18 13:49 Dose: Not Given Alendronate Sodium (Fosamax) 70 mg PO FR [facility] Amlodipine Besylate (Norvasc) 5 mg PO DAILY [facility] Last Admin: 06/17/18 09:39 Dose: 5 mg Atorvastatin Calcium (Lipitor) 10 mg PO HS [facility] Last Admin: 06/16/18 23:20 Dose: Not Given Budesonide (Pulmicort Respules) 0.25 mg IH Q12 [facility] Last Admin: 06/17/18 13:49 Dose: Not Given Carvedilol (Coreg) 3.125 mg PO Q12@0900,2100 [facility] Last Admin: 06/17/18 09:38 Dose: 3.125 mg Docusate Sodium (Colace) 100 mg PO TID [facility] Enalapril Maleate (Vasotec) 20 mg PO DAILY [facility] Last Admin: 06/17/18 09:40 Dose: 20 mg Ferrous Sulfate (Feosol) 325 mg PO TID [facility] Last Admin: 06/17/18 17:09 Dose: 325 mg Guaifenesin (Mucinex La) 600 mg PO Q12 [facility] Last Admin: 06/17/18 09:39 Dose: 600 mg Hydrocortisone (Hydrocortisone 2.5%) 1 applic TOP BID [facility] Last Admin: 06/17/18 17:09 Dose: 1 applic Ipratropium [place] (Atrovent) 0.5 mg IH RQ6 [facility] Last Admin: 06/17/18 13:48 Dose: 0.5 mg Levalbuterol HCl (Xopenex) 0.63 mg INH RQ8 PRN PRN Reason: Wheezing Lorazepam (Ativan) 0.5 mg PO DAILY [facility] Last Admin: 06/17/18 09:43 Dose: 0.5 mg Magnesium Hydroxide (Milk Of Magnesia) 30 ml PO DAILY PRN PRN Reason: Constipation Metformin HCl (Glucophage) 500 mg PO BID [facility] Last Admin: 06/17/18 17:09 Dose: 500 mg Montelukast Sodium (Singulair) 10 mg PO HS [facility] Last Admin: 06/16/18 23:17 Dose: 10 mg Multivitamins/Minerals (Therapeutic-M Tab) 1 tab PO DAILY [facility] Last Admin: 06/17/18 09:40 Dose: 1 tab Nystatin (Nystop Topical Powder) 1 applic TOP TID [facility] Last Admin: 06/17/18 17:08 Dose: 1 applic Pantoprazole Sodium (Protonix Ec Tab) 40 mg PO DAILY [facility] Last Admin: 06/17/18 09:40 Dose: 40 mg Sennosides (Senokot Tab) 8.6 mg PO [facility] - Labs Labs: 06/17/18 11:30 - Respiratory Exam Respiratory Exam: NORMAL BREATHING PATTERN - Cardiovascular Exam Cardiovascular Exam: REGULAR RHYTHM - GI/Abdominal Exam GI & Abdominal Exam: Normal Bowel Sounds Assessment and Plan - Assessment and Plan (Free Text) Assessment: Decndioning TCU Rectal bleeding stable Hx rectal prolapse Hx hemorrhoids Surgery GI Refusing w/u 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 Nephrology Samsca S/P Acute ant wall IA + CE CT scan CHF O2 JAYESH B-annia Nitrates ASA Cardiology Echo good LV fxn S/P Fall etiol?? 2 to above? COPD Prov Atrovent Chronic anxiety Ativan
--- NOTE | 2018-06-17 19:13 | CP.PCM.PN ---
Subjective - Date & Time of Evaluation Date of Evaluation: 06/17/18 Time of Evaluation: 09:00 - Subjective Subjective: Patient c/o mild constipation though doesn't want laxatives. Objective - Vital Signs/Intake and Output Vital Signs (last 24 hours): Temp Pulse Resp BP Pulse Ox 98.5 F 72 20 158/75 H 96 06/17/18 15:51 06/17/18 15:51 06/17/18 15:51 06/17/18 15:51 06/17/18 15:51 - Medications Medications: Current Medications Acetaminophen (Tylenol 325mg Tab) 650 mg PO Q6 PRN PRN Reason: Pain, moderate (4-7) Albuterol/Ipratropium (Duoneb 3 Mg/0.5 Mg (3 Ml) Ud) 3 ml IH Q12 [facility] Last Admin: 06/17/18 13:49 Dose: Not Given Alendronate Sodium (Fosamax) 70 mg PO FR [facility] Amlodipine Besylate (Norvasc) 5 mg PO DAILY [facility] Last Admin: 06/17/18 09:39 Dose: 5 mg Atorvastatin Calcium (Lipitor) 10 mg PO HS [facility] Last Admin: 06/16/18 23:20 Dose: Not Given Budesonide (Pulmicort Respules) 0.25 mg IH Q12 [facility] Last Admin: 06/17/18 13:49 Dose: Not Given Carvedilol (Coreg) 3.125 mg PO Q12@0900,2100 [facility] Last Admin: 06/17/18 09:38 Dose: 3.125 mg Docusate Sodium (Colace) 100 mg PO TID [facility] Enalapril Maleate (Vasotec) 20 mg PO DAILY [facility] Last Admin: 06/17/18 09:40 Dose: 20 mg Ferrous Sulfate (Feosol) 325 mg PO TID [facility] Last Admin: 06/17/18 17:09 Dose: 325 mg Guaifenesin (Mucinex La) 600 mg PO Q12 [facility] Last Admin: 06/17/18 09:39 Dose: 600 mg Hydrocortisone (Hydrocortisone 2.5%) 1 applic TOP BID [facility] Last Admin: 06/17/18 17:09 Dose: 1 applic Ipratropium [place] (Atrovent) 0.5 mg IH RQ6 [facility] Last Admin: 06/17/18 13:48 Dose: 0.5 mg Levalbuterol HCl (Xopenex) 0.63 mg INH RQ8 PRN PRN Reason: Wheezing Lorazepam (Ativan) 0.5 mg PO DAILY [facility] Last Admin: 06/17/18 09:43 Dose: 0.5 mg Magnesium Hydroxide (Milk Of Magnesia) 30 ml PO DAILY PRN PRN Reason: Constipation Metformin HCl (Glucophage) 500 mg PO BID [facility] Last Admin: 06/17/18 17:09 Dose: 500 mg Montelukast Sodium (Singulair) 10 mg PO HS [facility] Last Admin: 06/16/18 23:17 Dose: 10 mg Multivitamins/Minerals (Therapeutic-M Tab) 1 tab PO DAILY [facility] Last Admin: 06/17/18 09:40 Dose: 1 tab Nystatin (Nystop Topical Powder) 1 applic TOP TID [facility] Last Admin: 06/17/18 17:08 Dose: 1 applic Pantoprazole Sodium (Protonix Ec Tab) 40 mg PO DAILY [facility] Last Admin: 06/17/18 09:40 Dose: 40 mg Sennosides (Senokot Tab) 8.6 mg PO [facility] - Labs Labs: 06/17/18 11:30 - Head Exam Head Exam: ATRAUMATIC - Eye Exam Eye Exam: Normal appearance Pupil Exam: PERRL - Neck Exam Neck Exam: Normal Inspection - Respiratory Exam Respiratory Exam: Clear to Ausculation Bilateral - Cardiovascular Exam Cardiovascular Exam: REGULAR RHYTHM - GI/Abdominal Exam GI & Abdominal Exam: Soft, Normal Bowel Sounds. absent: Tenderness Assessment and Plan (1) GI bleed Assessment & Plan: No more signs of bleeding. Patient c/o difficulty moving bowels. Will change FeSO4 to once daily. Status: Acute
[2018-06-18] MEDS: Ipratropium 0.02% Inhal Soln (0.5 mg/2.5 ml) UD IH SCH ×4 (01:04→20:05)
[2018-06-18 06:28] LABS: BLOOD UREA NITROGEN 22 mg/dl (7-17); CALCIUM 8.8 mg/dL (8.4-10.2); GFR NON-AFRICAN AMERICAN > 60
[2018-06-18] MEDS: Albuterol-Ipratrop 3 mg / 0.5 (3 ml) UD IH SCH ×3 (07:33→20:04)
[2018-06-18] MEDS: Budesonide 0.25 mg/2 ml Inhal Susp UD IH SCH ×3 (07:34→20:04)
--- NOTE | 2018-06-18 08:40 | CP.PCM.PN ---
Subjective - Date & Time of Evaluation Date of Evaluation: 06/18/18 Time of Evaluation: 08:38 - Subjective Subjective: Podiatry Progress note for Dr. You, 88 y/o female seen in TCU at bedside for left ankle wound. Patient states she is feeling much better. Patient denies any other complaints. Patient denies any F/N/V/SOB/CP. Objective - Vital Signs/Intake and Output Vital Signs (last 24 hours): Temp Pulse Resp BP Pulse Ox 98.0 F 69 20 154/79 H 96 06/18/18 08:05 06/18/18 08:05 06/18/18 08:05 06/18/18 08:05 06/18/18 08:05 - Medications Medications: Current Medications Acetaminophen (Tylenol 325mg Tab) 650 mg PO Q6 PRN PRN Reason: Pain, moderate (4-7) Albuterol/Ipratropium (Duoneb 3 Mg/0.5 Mg (3 Ml) Ud) 3 ml IH Q12 [facility] Last Admin: 06/18/18 07:33 Dose: 3 ml Alendronate Sodium (Fosamax) 70 mg PO FR [facility] Amlodipine Besylate (Norvasc) 5 mg PO DAILY [facility] Last Admin: 06/17/18 09:39 Dose: 5 mg Atorvastatin Calcium (Lipitor) 10 mg PO HS [facility] Last Admin: 06/17/18 21:33 Dose: 10 mg Budesonide (Pulmicort Respules) 0.25 mg IH Q12 [facility] Last Admin: 06/18/18 07:34 Dose: 0.25 mg Carvedilol (Coreg) 3.125 mg PO Q12@0900,2100 [facility] Last Admin: 06/17/18 21:33 Dose: 3.125 mg Docusate Sodium (Colace) 100 mg PO TID [facility] Enalapril Maleate (Vasotec) 20 mg PO DAILY [facility] Last Admin: 06/17/18 09:40 Dose: 20 mg Ferrous Sulfate (Feosol) 325 mg PO DAILY [facility] Guaifenesin (Mucinex La) 600 mg PO Q12 [facility] Last Admin: 06/17/18 21:34 Dose: 600 mg Hydrocortisone (Hydrocortisone 2.5%) 1 applic TOP BID [facility] Last Admin: 06/17/18 17:09 Dose: 1 applic Ipratropium [place] (Atrovent) 0.5 mg IH RQ6 [facility] Last Admin: 06/18/18 01:04 Dose: 0.5 mg Levalbuterol HCl (Xopenex) 0.63 mg INH RQ8 PRN PRN Reason: Wheezing Lorazepam (Ativan) 0.5 mg PO DAILY [facility] Last Admin: 06/17/18 09:43 Dose: 0.5 mg Magnesium Hydroxide (Milk Of Magnesia) 30 ml PO DAILY PRN PRN Reason: Constipation Last Admin: 06/17/18 21:36 Dose: 30 ml Metformin HCl (Glucophage) 500 mg PO BID [facility] Last Admin: 06/17/18 17:09 Dose: 500 mg Montelukast Sodium (Singulair) 10 mg PO HS [facility] Last Admin: 06/17/18 21:33 Dose: 10 mg Multivitamins/Minerals (Therapeutic-M Tab) 1 tab PO DAILY [facility] Last Admin: 06/17/18 09:40 Dose: 1 tab Nystatin (Nystop Topical Powder) 1 applic TOP TID [facility] Last Admin: 06/17/18 17:08 Dose: 1 applic Pantoprazole Sodium (Protonix Ec Tab) 40 mg PO DAILY [facility] Last Admin: 06/17/18 09:40 Dose: 40 mg Sennosides (Senokot Tab) 8.6 mg PO HS [facility] Last Admin: 06/17/18 21:37 Dose: Not Given - Labs Labs: 06/18/18 05:15 - Constitutional Appears: Well, Non-toxic, No Acute Distress - Head Exam Head Exam: ATRAUMATIC, NORMOCEPHALIC - Extremities Exam Additional comments: Left Lower extremity exam: VASC: dp/pt pulses palpable, CFT <3 secs x 5, Tg warm to cool, periwound erythema noted, no erythema otherwise, no edema noted NEURO: unable to obtain DERM: left lateralmalleolus wound measuring o.5 X 0.3 cm with 100% granular base, signifncant periwound erythema, no drainage noted on the dressing, no malodor, no clinical signs of infection ORTHO: minimal pain on palpation to the wound - Neurological Exam Neurological Exam: Alert, Awake, Oriented x3 - Psychiatric Exam Psychiatric exam: Normal Affect, Normal Mood Assessment and Plan - Assessment and Plan (Free Text) Assessment: 88 y/o female seen at bedside for a stable left ankle wound Plan: Patient seen and evaluated Chart, labs and vitals reviewed Wound cleansed with saline and dressed with Carl cardona and MANUELA Podiatry will continue to follow the patient while in house Patient will follow up with Dr. You upon discharge
[2018-06-18] MEDS: Multivitamin With Minerals Tab PO SCH (09:07)
[2018-06-18] MEDS: guaiFENesin 600 mg ER Tab PO SCH ×2 (09:08→21:24)
[2018-06-18] MEDS: Pantoprazole 40 mg EC Tab PO SCH (09:10)
--- NOTE | 2018-06-18 10:17 | CP.PCM.PN ---
Subjective - Date & Time of Evaluation Date of Evaluation: 06/18/18 Time of Evaluation: 10:17 - Subjective Subjective: Patient sitting out of bed in the chair awake and conscious. Vital signs noted to be stable. Objective - Vital Signs/Intake and Output Vital Signs (last 24 hours): Temp Pulse Resp BP Pulse Ox 98.0 F 68 20 154/79 H 96 06/18/18 08:05 06/18/18 09:11 06/18/18 08:05 06/18/18 09:11 06/18/18 08:05 - Medications Medications: Current Medications Acetaminophen (Tylenol 325mg Tab) 650 mg PO Q6 PRN PRN Reason: Pain, moderate (4-7) Last Admin: 06/18/18 09:59 Dose: 650 mg Albuterol/Ipratropium (Duoneb 3 Mg/0.5 Mg (3 Ml) Ud) 3 ml IH Q12 [facility] Last Admin: 06/18/18 07:33 Dose: 3 ml Alendronate Sodium (Fosamax) 70 mg PO FR [facility] Amlodipine Besylate (Norvasc) 5 mg PO DAILY [facility] Last Admin: 06/18/18 09:09 Dose: 5 mg Atorvastatin Calcium (Lipitor) 10 mg PO HS [facility] Last Admin: 06/17/18 21:33 Dose: 10 mg Budesonide (Pulmicort Respules) 0.25 mg IH Q12 [facility] Last Admin: 06/18/18 09:13 Dose: Not Given Carvedilol (Coreg) 3.125 mg PO Q12@0900,2100 [facility] Last Admin: 06/18/18 09:11 Dose: 3.125 mg Docusate Sodium (Colace) 100 mg PO TID [facility] Last Admin: 06/18/18 09:08 Dose: 100 mg Enalapril Maleate (Vasotec) 20 mg PO DAILY [facility] Last Admin: 06/18/18 09:09 Dose: 20 mg Ferrous Sulfate (Feosol) 325 mg PO DAILY [facility] Last Admin: 06/18/18 09:10 Dose: 325 mg Guaifenesin (Mucinex La) 600 mg PO Q12 [facility] Last Admin: 06/18/18 09:08 Dose: 600 mg Hydrocortisone (Hydrocortisone 2.5%) 1 applic TOP BID [facility] Last Admin: 06/18/18 09:12 Dose: 1 applic Ipratropium [place] (Atrovent) 0.5 mg IH RQ6 [facility] Last Admin: 06/18/18 01:04 Dose: 0.5 mg Levalbuterol HCl (Xopenex) 0.63 mg INH RQ8 PRN PRN Reason: Wheezing Lorazepam (Ativan) 0.5 mg PO DAILY [facility] Last Admin: 06/18/18 09:09 Dose: 0.5 mg Magnesium Hydroxide (Milk Of Magnesia) 30 ml PO DAILY PRN PRN Reason: Constipation Last Admin: 06/17/18 21:36 Dose: 30 ml Metformin HCl (Glucophage) 500 mg PO BID [facility] Last Admin: 06/18/18 09:08 Dose: 500 mg Montelukast Sodium (Singulair) 10 mg PO HS [facility] Last Admin: 06/17/18 21:33 Dose: 10 mg Multivitamins/Minerals (Therapeutic-M Tab) 1 tab PO DAILY [facility] Last Admin: 06/18/18 09:07 Dose: 1 tab Nystatin (Nystop Topical Powder) 1 applic TOP TID [facility] Last Admin: 06/18/18 09:10 Dose: 1 applic Pantoprazole Sodium (Protonix Ec Tab) 40 mg PO DAILY [facility] Last Admin: 06/18/18 09:10 Dose: 40 mg Sennosides (Senokot Tab) 8.6 mg PO HS [facility] Last Admin: 06/17/18 21:37 Dose: Not Given - Labs Labs: 06/18/18 05:15 - Constitutional Appears: No Acute Distress - Eye Exam Eye Exam: Conjunctival injection - ENT Exam ENT Exam: Mucous Membranes Moist - Neck Exam Neck Exam: absent: Lymphadenopathy - Respiratory Exam Respiratory Exam: Rhonchi, NORMAL BREATHING PATTERN. 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
--- NOTE | 2018-06-18 18:22 | CP.PCM.PN ---
Subjective - Date & Time of Evaluation Date of Evaluation: 06/18/18 Time of Evaluation: 18:22 - Subjective Subjective: Patient seen in the room has the limited right shoulder ROM but did not want to try an injection she is happy with current care denies CP lungs CTA continue current care Objective - Vital Signs/Intake and Output Vital Signs (last 24 hours): Temp Pulse Resp BP Pulse Ox 97.7 F 79 20 187/51 H 94 L 06/18/18 17:20 06/18/18 17:20 06/18/18 17:20 06/18/18 17:20 06/18/18 17:20 - Medications Medications: Current Medications Acetaminophen (Tylenol 325mg Tab) 650 mg PO Q6 PRN PRN Reason: Pain, moderate (4-7) Last Admin: 06/18/18 09:59 Dose: 650 mg Albuterol/Ipratropium (Duoneb 3 Mg/0.5 Mg (3 Ml) Ud) 3 ml IH Q12 [facility] Last Admin: 06/18/18 13:11 Dose: Not Given Alendronate Sodium (Fosamax) 70 mg PO FR [facility] Amlodipine Besylate (Norvasc) 5 mg PO DAILY [facility] Last Admin: 06/18/18 09:09 Dose: 5 mg Atorvastatin Calcium (Lipitor) 10 mg PO HS [facility] Last Admin: 06/17/18 21:33 Dose: 10 mg Budesonide (Pulmicort Respules) 0.25 mg IH Q12 [facility] Last Admin: 06/18/18 09:13 Dose: Not Given Carvedilol (Coreg) 3.125 mg PO Q12@0900,2100 [facility] Last Admin: 06/18/18 09:11 Dose: 3.125 mg Docusate Sodium (Colace) 100 mg PO TID [facility] Last Admin: 06/18/18 16:32 Dose: 100 mg Enalapril Maleate (Vasotec) 20 mg PO DAILY [facility] Last Admin: 06/18/18 09:09 Dose: 20 mg Ferrous Sulfate (Feosol) 325 mg PO DAILY [facility] Last Admin: 06/18/18 09:10 Dose: 325 mg Guaifenesin (Mucinex La) 600 mg PO Q12 [facility] Last Admin: 06/18/18 09:08 Dose: 600 mg Hydrocortisone (Hydrocortisone 2.5%) 1 applic TOP BID [facility] Last Admin: 06/18/18 16:32 Dose: 1 applic Ipratropium [place] (Atrovent) 0.5 mg IH RQ6 [facility] Last Admin: 06/18/18 13:11 Dose: 0.5 mg Levalbuterol HCl (Xopenex) 0.63 mg INH RQ8 PRN PRN Reason: Wheezing Lorazepam (Ativan) 0.5 mg PO DAILY [facility] Last Admin: 06/18/18 09:09 Dose: 0.5 mg Magnesium Hydroxide (Milk Of Magnesia) 30 ml PO DAILY PRN PRN Reason: Constipation Last Admin: 06/17/18 21:36 Dose: 30 ml Metformin HCl (Glucophage) 500 mg PO BID [facility] Last Admin: 06/18/18 16:33 Dose: 500 mg Montelukast Sodium (Singulair) 10 mg PO HS [facility] Last Admin: 06/17/18 21:33 Dose: 10 mg Multivitamins/Minerals (Therapeutic-M Tab) 1 tab PO DAILY [facility] Last Admin: 06/18/18 09:07 Dose: 1 tab Nystatin (Nystop Topical Powder) 1 applic TOP TID [facility] Last Admin: 06/18/18 16:32 Dose: 1 applic Pantoprazole Sodium (Protonix Ec Tab) 40 mg PO DAILY [facility] Last Admin: 06/18/18 09:10 Dose: 40 mg Sennosides (Senokot Tab) 8.6 mg PO HS [facility] Last Admin: 06/17/18 21:37 Dose: Not Given - Labs Labs: 06/18/18 05:15
--- NOTE | 2018-06-18 19:59 | CP.PCM.PN ---
Subjective - Date & Time of Evaluation Date of Evaluation: 06/18/18 Time of Evaluation: 22:22 - Subjective Subjective: Doing well Objective - Vital Signs/Intake and Output Vital Signs (last 24 hours): Temp Pulse Resp BP Pulse Ox 97.7 F 79 20 187/51 H 94 L 06/18/18 17:20 06/18/18 17:20 06/18/18 17:20 06/18/18 17:20 06/18/18 17:20 - Medications Medications: Current Medications Acetaminophen (Tylenol 325mg Tab) 650 mg PO Q6 PRN PRN Reason: Pain, moderate (4-7) Last Admin: 06/18/18 09:59 Dose: 650 mg Albuterol/Ipratropium (Duoneb 3 Mg/0.5 Mg (3 Ml) Ud) 3 ml IH Q12 [facility] Last Admin: 06/18/18 13:11 Dose: Not Given Alendronate Sodium (Fosamax) 70 mg PO FR [facility] Amlodipine Besylate (Norvasc) 5 mg PO DAILY [facility] Last Admin: 06/18/18 09:09 Dose: 5 mg Atorvastatin Calcium (Lipitor) 10 mg PO HS [facility] Last Admin: 06/17/18 21:33 Dose: 10 mg Budesonide (Pulmicort Respules) 0.25 mg IH Q12 [facility] Last Admin: 06/18/18 09:13 Dose: Not Given Carvedilol (Coreg) 3.125 mg PO Q12@0900,2100 [facility] Last Admin: 06/18/18 09:11 Dose: 3.125 mg Docusate Sodium (Colace) 100 mg PO TID [facility] Last Admin: 06/18/18 16:32 Dose: 100 mg Enalapril Maleate (Vasotec) 20 mg PO DAILY [facility] Last Admin: 06/18/18 09:09 Dose: 20 mg Ferrous Sulfate (Feosol) 325 mg PO DAILY [facility] Last Admin: 06/18/18 09:10 Dose: 325 mg Guaifenesin (Mucinex La) 600 mg PO Q12 [facility] Last Admin: 06/18/18 09:08 Dose: 600 mg Hydrocortisone (Hydrocortisone 2.5%) 1 applic TOP BID [facility] Last Admin: 06/18/18 16:32 Dose: 1 applic Ipratropium [place] (Atrovent) 0.5 mg IH RQ6 [facility] Last Admin: 06/18/18 13:11 Dose: 0.5 mg Levalbuterol HCl (Xopenex) 0.63 mg INH RQ8 PRN PRN Reason: Wheezing Lorazepam (Ativan) 0.5 mg PO DAILY [facility] Last Admin: 06/18/18 09:09 Dose: 0.5 mg Magnesium Hydroxide (Milk Of Magnesia) 30 ml PO DAILY PRN PRN Reason: Constipation Last Admin: 06/17/18 21:36 Dose: 30 ml Metformin HCl (Glucophage) 500 mg PO BID [facility] Last Admin: 06/18/18 16:33 Dose: 500 mg Montelukast Sodium (Singulair) 10 mg PO HS [facility] Last Admin: 06/17/18 21:33 Dose: 10 mg Multivitamins/Minerals (Therapeutic-M Tab) 1 tab PO DAILY [facility] Last Admin: 06/18/18 09:07 Dose: 1 tab Nystatin (Nystop Topical Powder) 1 applic TOP TID [facility] Last Admin: 06/18/18 16:32 Dose: 1 applic Pantoprazole Sodium (Protonix Ec Tab) 40 mg PO DAILY [facility] Last Admin: 06/18/18 09:10 Dose: 40 mg Sennosides (Senokot Tab) 8.6 mg PO HS [facility] Last Admin: 06/17/18 21:37 Dose: Not Given - Labs Labs: 06/18/18 05:15 - Respiratory Exam Respiratory Exam: NORMAL BREATHING PATTERN - Cardiovascular Exam Cardiovascular Exam: REGULAR RHYTHM - GI/Abdominal Exam GI & Abdominal Exam: Normal Bowel Sounds Assessment and Plan - Assessment and Plan (Free Text) Assessment: Decndioning TCU Rectal bleeding stable Hx rectal prolapse Hx hemorrhoids Surgery GI Refusing w/u 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 Nephrology Samsca S/P Acute ant wall NE + CE CT scan CHF O2 JAYESH B-annia Nitrates ASA Cardiology Echo good LV fxn S/P Fall etiol?? 2 to above? COPD Prov Atrovent Chronic anxiety Ativan
[2018-06-19] MEDS: Ipratropium 0.02% Inhal Soln (0.5 mg/2.5 ml) UD IH SCH ×4 (01:03→19:08)
[2018-06-19] MEDS: Budesonide 0.25 mg/2 ml Inhal Susp UD IH SCH ×4 (07:20→20:10)
[2018-06-19] MEDS: Albuterol-Ipratrop 3 mg / 0.5 (3 ml) UD IH SCH ×5 (07:20→20:10)
[2018-06-19] MEDS: Multivitamin With Minerals Tab PO SCH (08:56)
[2018-06-19] MEDS: Pantoprazole 40 mg EC Tab PO SCH (08:57)
[2018-06-19] MEDS: guaiFENesin 600 mg ER Tab PO SCH ×2 (08:57→21:33)
--- NOTE | 2018-06-19 09:08 | CP.PCM.PN ---
Subjective - Date & Time of Evaluation Date of Evaluation: 06/19/18 Time of Evaluation: 08:40 - Subjective Subjective: NO CHEST PAIN OR SOB Objective - Vital Signs/Intake and Output Vital Signs (last 24 hours): Temp Pulse Resp BP Pulse Ox 97.8 F 69 20 169/70 H 97 06/19/18 08:09 06/19/18 09:01 06/19/18 08:09 06/19/18 09:01 06/19/18 08:09 - Medications Medications: Current Medications Acetaminophen (Tylenol 325mg Tab) 650 mg PO Q6 PRN PRN Reason: Pain, moderate (4-7) Last Admin: 06/18/18 09:59 Dose: 650 mg Albuterol/Ipratropium (Duoneb 3 Mg/0.5 Mg (3 Ml) Ud) 3 ml IH Q12 [facility] Last Admin: 06/19/18 07:47 Dose: 3 ml Alendronate Sodium (Fosamax) 70 mg PO FR [facility] Amlodipine Besylate (Norvasc) 5 mg PO DAILY [facility] Last Admin: 06/19/18 09:01 Dose: 5 mg Atorvastatin Calcium (Lipitor) 10 mg PO HS [facility] Last Admin: 06/18/18 21:24 Dose: 10 mg Budesonide (Pulmicort Respules) 0.25 mg IH Q12 [facility] Last Admin: 06/19/18 07:20 Dose: 0.25 mg Carvedilol (Coreg) 3.125 mg PO Q12@0900,2100 [facility] Last Admin: 06/19/18 08:58 Dose: 3.125 mg Docusate Sodium (Colace) 100 mg PO TID [facility] Last Admin: 06/19/18 08:57 Dose: 100 mg Enalapril Maleate (Vasotec) 20 mg PO DAILY [facility] Last Admin: 06/19/18 08:58 Dose: 20 mg Ferrous Sulfate (Feosol) 325 mg PO DAILY [facility] Last Admin: 06/19/18 08:56 Dose: 325 mg Guaifenesin (Mucinex La) 600 mg PO Q12 [facility] Last Admin: 06/19/18 08:57 Dose: 600 mg Hydrocortisone (Hydrocortisone 2.5%) 1 applic TOP BID [facility] Last Admin: 06/19/18 08:55 Dose: 1 applic Ipratropium [place] (Atrovent) 0.5 mg IH RQ6 [facility] Last Admin: 06/19/18 01:03 Dose: Not Given Levalbuterol HCl (Xopenex) 0.63 mg INH RQ8 PRN PRN Reason: Wheezing Lorazepam (Ativan) 0.5 mg PO DAILY [facility] Last Admin: 06/19/18 08:55 Dose: 0.5 mg Magnesium Hydroxide (Milk Of Magnesia) 30 ml PO DAILY PRN PRN Reason: Constipation Last Admin: 06/17/18 21:36 Dose: 30 ml Metformin HCl (Glucophage) 500 mg PO BID [facility] Last Admin: 06/19/18 08:56 Dose: 500 mg Montelukast Sodium (Singulair) 10 mg PO HS [facility] Last Admin: 06/18/18 21:24 Dose: 10 mg Multivitamins/Minerals (Therapeutic-M Tab) 1 tab PO DAILY [facility] Last Admin: 06/19/18 08:56 Dose: 1 tab Nystatin (Nystop Topical Powder) 1 applic TOP TID [facility] Last Admin: 06/19/18 08:56 Dose: 1 applic Pantoprazole Sodium (Protonix Ec Tab) 40 mg PO DAILY [facility] Last Admin: 06/19/18 08:57 Dose: 40 mg Sennosides (Senokot Tab) 8.6 mg PO HS [facility] Last Admin: 06/18/18 21:25 Dose: 8.6 mg - Labs Labs: 06/18/18 05:15 - Respiratory Exam Respiratory Exam: Clear to Ausculation Bilateral - Cardiovascular Exam Cardiovascular Exam: REGULAR RHYTHM, +S1, +S2 Assessment and Plan - Assessment and Plan (Free Text) Assessment: CAD WITH RECENT AWMI HYPERTENSION HYPERLIPIDEMIA COPD Plan: CONTINUE CARVEDILOL, ATORVASTATIN, AMLODIPINE, ENALAPRIL AND COPD MEDS CONTINUE ALVA
[2018-06-19 10:57] LABS: BLOOD UREA NITROGEN 16 mg/dl (7-17); CALCIUM 8.9 mg/dL (8.4-10.2); GFR NON-AFRICAN AMERICAN > 60
[2018-06-19] MEDS ORDERED: Tolvaptan 15 MG TAB PO ONE (11:44)
--- NOTE | 2018-06-19 11:49 | CP.PCM.PN ---
Subjective - Date & Time of Evaluation Date of Evaluation: 06/19/18 Time of Evaluation: 11:47 - Subjective Subjective: Patient awake not in acute distress Vital signs noted to be stable Objective - Vital Signs/Intake and Output Vital Signs (last 24 hours): Temp Pulse Resp BP Pulse Ox 97.8 F 69 20 169/70 H 97 06/19/18 08:09 06/19/18 09:01 06/19/18 08:09 06/19/18 09:01 06/19/18 08:09 - Medications Medications: Current Medications Acetaminophen (Tylenol 325mg Tab) 650 mg PO Q6 PRN PRN Reason: Pain, moderate (4-7) Last Admin: 06/18/18 09:59 Dose: 650 mg Albuterol/Ipratropium (Duoneb 3 Mg/0.5 Mg (3 Ml) Ud) 3 ml IH Q12 [facility] Last Admin: 06/19/18 07:47 Dose: 3 ml Alendronate Sodium (Fosamax) 70 mg PO FR [facility] Amlodipine Besylate (Norvasc) 5 mg PO DAILY [facility] Last Admin: 06/19/18 09:01 Dose: 5 mg Atorvastatin Calcium (Lipitor) 10 mg PO HS [facility] Last Admin: 06/18/18 21:24 Dose: 10 mg Budesonide (Pulmicort Respules) 0.25 mg IH Q12 [facility] Last Admin: 06/19/18 07:20 Dose: 0.25 mg Carvedilol (Coreg) 3.125 mg PO Q12@0900,2100 [facility] Last Admin: 06/19/18 08:58 Dose: 3.125 mg Docusate Sodium (Colace) 100 mg PO TID [facility] Last Admin: 06/19/18 08:57 Dose: 100 mg Enalapril Maleate (Vasotec) 20 mg PO DAILY [facility] Last Admin: 06/19/18 08:58 Dose: 20 mg Ferrous Sulfate (Feosol) 325 mg PO DAILY [facility] Last Admin: 06/19/18 08:56 Dose: 325 mg Guaifenesin (Mucinex La) 600 mg PO Q12 [facility] Last Admin: 06/19/18 08:57 Dose: 600 mg Hydrocortisone (Hydrocortisone 2.5%) 1 applic TOP BID [facility] Last Admin: 06/19/18 08:55 Dose: 1 applic Ipratropium [place] (Atrovent) 0.5 mg IH RQ6 [facility] Last Admin: 06/19/18 01:03 Dose: Not Given Levalbuterol HCl (Xopenex) 0.63 mg INH RQ8 PRN PRN Reason: Wheezing Lorazepam (Ativan) 0.5 mg PO DAILY [facility] Last Admin: 06/19/18 08:55 Dose: 0.5 mg Magnesium Hydroxide (Milk Of Magnesia) 30 ml PO DAILY PRN PRN Reason: Constipation Last Admin: 06/17/18 21:36 Dose: 30 ml Metformin HCl (Glucophage) 500 mg PO BID [facility] Last Admin: 06/19/18 08:56 Dose: 500 mg Montelukast Sodium (Singulair) 10 mg PO HS [facility] Last Admin: 06/18/18 21:24 Dose: 10 mg Multivitamins/Minerals (Therapeutic-M Tab) 1 tab PO DAILY [facility] Last Admin: 06/19/18 08:56 Dose: 1 tab Nystatin (Nystop Topical Powder) 1 applic TOP TID [facility] Last Admin: 06/19/18 08:56 Dose: 1 applic Pantoprazole Sodium (Protonix Ec Tab) 40 mg PO DAILY [facility] Last Admin: 06/19/18 08:57 Dose: 40 mg Sennosides (Senokot Tab) 8.6 mg PO HS [facility] Last Admin: 06/18/18 21:25 Dose: 8.6 mg Tolvaptan (Samsca) 15 mg PO ONCE ONE Stop: 06/19/18 11:45 - Labs Labs: 06/19/18 10:15 - Constitutional Appears: No Acute Distress - Eye Exam Eye Exam: Conjunctival injection - ENT Exam ENT Exam: Mucous Membranes Moist - Respiratory Exam Respiratory Exam: absent: Chest Wall Tenderness - Cardiovascular Exam Cardiovascular Exam: absent: Gallop, JVD, Rubs - GI/Abdominal Exam GI & Abdominal Exam: Soft, Normal Bowel Sounds - Extremities Exam Extremities Exam: absent: Calf Tenderness - Back Exam Back Exam: absent: CVA tenderness (L), CVA tenderness (R) - Neurological Exam Neurological Exam: Alert - Skin Skin Exam: absent: Cyanosis Assessment and Plan - Assessment and Plan (Free Text) Assessment: 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 To give Samsca 15 mg start p.o. now and every Friday and Friday
[2018-06-19] MEDS: ALENDRONATE 70 MG TAB PO SCH (15:35)
--- NOTE | 2018-06-19 17:31 | CP.PCM.PN ---
Subjective - Date & Time of Evaluation Date of Evaluation: 06/19/18 Time of Evaluation: 22:22 - Subjective Subjective: Above noted Objective - Vital Signs/Intake and Output Vital Signs (last 24 hours): Temp Pulse Resp BP Pulse Ox 97.9 F 73 20 145/73 96 06/19/18 16:41 06/19/18 16:41 06/19/18 16:41 06/19/18 16:41 06/19/18 16:41 - Medications Medications: Current Medications Acetaminophen (Tylenol 325mg Tab) 650 mg PO Q6 PRN PRN Reason: Pain, moderate (4-7) Last Admin: 06/18/18 09:59 Dose: 650 mg Albuterol/Ipratropium (Duoneb 3 Mg/0.5 Mg (3 Ml) Ud) 3 ml IH Q12 [facility] Last Admin: 06/19/18 13:24 Dose: Not Given Alendronate Sodium (Fosamax) 70 mg PO FR [facility] Last Admin: 06/19/18 15:35 Dose: 70 mg Amlodipine Besylate (Norvasc) 5 mg PO DAILY [facility] Last Admin: 06/19/18 09:01 Dose: 5 mg Atorvastatin Calcium (Lipitor) 10 mg PO HS [facility] Last Admin: 06/18/18 21:24 Dose: 10 mg Budesonide (Pulmicort Respules) 0.25 mg IH Q12 [facility] Last Admin: 06/19/18 07:20 Dose: 0.25 mg Carvedilol (Coreg) 3.125 mg PO Q12@0900,2100 [facility] Last Admin: 06/19/18 08:58 Dose: 3.125 mg Docusate Sodium (Colace) 100 mg PO TID [facility] Last Admin: 06/19/18 16:48 Dose: 100 mg Enalapril Maleate (Vasotec) 20 mg PO DAILY [facility] Last Admin: 06/19/18 08:58 Dose: 20 mg Ferrous Sulfate (Feosol) 325 mg PO DAILY [facility] Last Admin: 06/19/18 08:56 Dose: 325 mg Guaifenesin (Mucinex La) 600 mg PO Q12 [facility] Last Admin: 06/19/18 08:57 Dose: 600 mg Hydrocortisone (Hydrocortisone 2.5%) 1 applic TOP BID [facility] Last Admin: 06/19/18 16:49 Dose: 1 applic Ipratropium [place] (Atrovent) 0.5 mg IH RQ6 [facility] Last Admin: 06/19/18 13:24 Dose: Not Given Levalbuterol HCl (Xopenex) 0.63 mg INH RQ8 PRN PRN Reason: Wheezing Lorazepam (Ativan) 0.5 mg PO DAILY [facility] Last Admin: 06/19/18 08:55 Dose: 0.5 mg Magnesium Hydroxide (Milk Of Magnesia) 30 ml PO DAILY PRN PRN Reason: Constipation Last Admin: 06/17/18 21:36 Dose: 30 ml Metformin HCl (Glucophage) 500 mg PO BID [facility] Last Admin: 06/19/18 16:47 Dose: 500 mg Montelukast Sodium (Singulair) 10 mg PO HS [facility] Last Admin: 06/18/18 21:24 Dose: 10 mg Multivitamins/Minerals (Therapeutic-M Tab) 1 tab PO DAILY [facility] Last Admin: 06/19/18 08:56 Dose: 1 tab Nystatin (Nystop Topical Powder) 1 applic TOP TID [facility] Last Admin: 06/19/18 16:50 Dose: 1 applic Pantoprazole Sodium (Protonix Ec Tab) 40 mg PO DAILY [facility] Last Admin: 06/19/18 08:57 Dose: 40 mg Sennosides (Senokot Tab) 8.6 mg PO HS [facility] Last Admin: 06/18/18 21:25 Dose: 8.6 mg - Labs Labs: 06/19/18 10:15 - Respiratory Exam Respiratory Exam: NORMAL BREATHING PATTERN - Cardiovascular Exam Cardiovascular Exam: REGULAR RHYTHM - GI/Abdominal Exam GI & Abdominal Exam: Normal Bowel Sounds Assessment and Plan - Assessment and Plan (Free Text) Assessment: Decndioning TCU Rectal bleeding stable Hx rectal prolapse Hx hemorrhoids Surgery GI Refusing w/u 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 Nephrology Samsca 15 mg 3x week S/P Acute ant wall ND + CE CT scan CHF O2 JAYESH B-annia Nitrates ASA Cardiology Echo good LV fxn S/P Fall etiol?? 2 to above? COPD Prov Atrovent Chronic anxiety Ativan
[2018-06-20] MEDS: Ipratropium 0.02% Inhal Soln (0.5 mg/2.5 ml) UD IH SCH ×4 (01:43→21:12)
--- NOTE | 2018-06-20 08:01 | CP.PCM.PN ---
Subjective - Date & Time of Evaluation Date of Evaluation: 06/20/18 Time of Evaluation: 22:22 - Subjective Subjective: Doing well Objective - Vital Signs/Intake and Output Vital Signs (last 24 hours): Temp Pulse Resp BP Pulse Ox 97.3 F L 72 20 153/67 H 100 06/19/18 20:22 06/19/18 21:33 06/19/18 20:22 06/19/18 21:33 06/19/18 20:22 - Medications Medications: Current Medications Acetaminophen (Tylenol 325mg Tab) 650 mg PO Q6 PRN PRN Reason: Pain, moderate (4-7) Last Admin: 06/18/18 09:59 Dose: 650 mg Albuterol/Ipratropium (Duoneb 3 Mg/0.5 Mg (3 Ml) Ud) 3 ml IH Q12 [facility] Last Admin: 06/19/18 20:10 Dose: Not Given Alendronate Sodium (Fosamax) 70 mg PO FR [facility] Last Admin: 06/19/18 15:35 Dose: 70 mg Amlodipine Besylate (Norvasc) 5 mg PO DAILY [facility] Last Admin: 06/19/18 09:01 Dose: 5 mg Atorvastatin Calcium (Lipitor) 10 mg PO HS [facility] Last Admin: 06/19/18 21:33 Dose: 10 mg Budesonide (Pulmicort Respules) 0.25 mg IH Q12 [facility] Last Admin: 06/19/18 20:10 Dose: Not Given Carvedilol (Coreg) 3.125 mg PO Q12@0900,2100 [facility] Last Admin: 06/19/18 21:33 Dose: 3.125 mg Docusate Sodium (Colace) 100 mg PO TID [facility] Last Admin: 06/19/18 16:48 Dose: 100 mg Enalapril Maleate (Vasotec) 20 mg PO DAILY [facility] Last Admin: 06/19/18 08:58 Dose: 20 mg Ferrous Sulfate (Feosol) 325 mg PO DAILY [facility] Last Admin: 06/19/18 08:56 Dose: 325 mg Guaifenesin (Mucinex La) 600 mg PO Q12 [facility] Last Admin: 06/19/18 21:33 Dose: 600 mg Hydrocortisone (Hydrocortisone 2.5%) 1 applic TOP BID [facility] Last Admin: 06/19/18 16:49 Dose: 1 applic Ipratropium [place] (Atrovent) 0.5 mg IH RQ6 [facility] Last Admin: 06/20/18 01:43 Dose: 0.5 mg Levalbuterol HCl (Xopenex) 0.63 mg INH RQ8 PRN PRN Reason: Wheezing Lorazepam (Ativan) 0.5 mg PO DAILY [facility] Last Admin: 06/19/18 08:55 Dose: 0.5 mg Magnesium Hydroxide (Milk Of Magnesia) 30 ml PO DAILY PRN PRN Reason: Constipation Last Admin: 06/17/18 21:36 Dose: 30 ml Metformin HCl (Glucophage) 500 mg PO BID [facility] Last Admin: 06/19/18 16:47 Dose: 500 mg Montelukast Sodium (Singulair) 10 mg PO HS [facility] Last Admin: 06/19/18 21:33 Dose: 10 mg Multivitamins/Minerals (Therapeutic-M Tab) 1 tab PO DAILY [facility] Last Admin: 06/19/18 08:56 Dose: 1 tab Nystatin (Nystop Topical Powder) 1 applic TOP TID [facility] Last Admin: 06/19/18 16:50 Dose: 1 applic Pantoprazole Sodium (Protonix Ec Tab) 40 mg PO DAILY [facility] Last Admin: 06/19/18 08:57 Dose: 40 mg Sennosides (Senokot Tab) 8.6 mg PO HS [facility] Last Admin: 06/19/18 21:33 Dose: 8.6 mg - Labs Labs: 06/19/18 10:15 - Respiratory Exam Respiratory Exam: NORMAL BREATHING PATTERN - Cardiovascular Exam Cardiovascular Exam: REGULAR RHYTHM - GI/Abdominal Exam GI & Abdominal Exam: Normal Bowel Sounds Assessment and Plan - Assessment and Plan (Free Text) Assessment: Decndioning TCU Rectal bleeding stable Hx rectal prolapse Hx hemorrhoids Surgery GI Refusing w/u 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 Nephrology Samsca 15 mg 3x week S/P Acute ant wall CO + CE CT scan CHF O2 JAYESH B-annia Nitrates ASA Cardiology Echo good LV fxn S/P Fall etiol?? 2 to above? COPD Prov Atrovent Chronic anxiety Ativan
[2018-06-20] MEDS: guaiFENesin 600 mg ER Tab PO SCH ×2 (08:36→22:07)
[2018-06-20] MEDS: Budesonide 0.25 mg/2 ml Inhal Susp UD IH SCH ×2 (08:37→19:30)
[2018-06-20] MEDS: Pantoprazole 40 mg EC Tab PO SCH (08:37)
[2018-06-20] MEDS: Multivitamin With Minerals Tab PO SCH (08:37)
[2018-06-20] MEDS: Albuterol-Ipratrop 3 mg / 0.5 (3 ml) UD IH SCH ×2 (08:37→19:30)
--- NOTE | 2018-06-20 08:52 | CP.PCM.PN ---
Subjective - Date & Time of Evaluation Date of Evaluation: 06/20/18 Time of Evaluation: 08:47 - Subjective Subjective: Podiatry Progress note for Dr. You, 88 y/o female seen and evaluated in TCU at bedside for left ankle wound. Patient states she is feeling much better. Patient denies any pain at her ulcer site. Patient denies any other pedal complaints at this time. Patient denies any overnight F/N/V/SOB/CP. Objective - Vital Signs/Intake and Output Vital Signs (last 24 hours): Temp Pulse Resp BP Pulse Ox 97.7 F 79 20 156/73 H 99 06/20/18 08:26 06/20/18 08:36 06/20/18 08:26 06/20/18 08:36 06/20/18 08:26 - Medications Medications: Current Medications Acetaminophen (Tylenol 325mg Tab) 650 mg PO Q6 PRN PRN Reason: Pain, moderate (4-7) Last Admin: 06/18/18 09:59 Dose: 650 mg Albuterol/Ipratropium (Duoneb 3 Mg/0.5 Mg (3 Ml) Ud) 3 ml IH Q12 [facility] Last Admin: 06/20/18 08:37 Dose: 3 ml Alendronate Sodium (Fosamax) 70 mg PO FR [facility] Last Admin: 06/19/18 15:35 Dose: 70 mg Amlodipine Besylate (Norvasc) 5 mg PO DAILY [facility] Last Admin: 06/20/18 08:36 Dose: 5 mg Atorvastatin Calcium (Lipitor) 10 mg PO HS [facility] Last Admin: 06/19/18 21:33 Dose: 10 mg Budesonide (Pulmicort Respules) 0.25 mg IH Q12 [facility] Last Admin: 06/20/18 08:37 Dose: 0.25 mg Carvedilol (Coreg) 3.125 mg PO Q12@0900,2100 [facility] Last Admin: 06/20/18 08:35 Dose: 3.125 mg Docusate Sodium (Colace) 100 mg PO TID [facility] Last Admin: 06/20/18 08:34 Dose: 100 mg Enalapril Maleate (Vasotec) 20 mg PO DAILY [facility] Last Admin: 06/20/18 08:37 Dose: 20 mg Ferrous Sulfate (Feosol) 325 mg PO DAILY [facility] Last Admin: 06/20/18 08:39 Dose: 325 mg Guaifenesin (Mucinex [place]) 600 mg PO Q12 [facility] Last Admin: 06/20/18 08:36 Dose: 600 mg Hydrocortisone (Hydrocortisone 2.5%) 1 applic TOP BID [facility] Last Admin: 06/20/18 08:36 Dose: 1 applic Ipratropium [place] (Atrovent) 0.5 mg IH RQ6 [facility] Last Admin: 06/20/18 08:37 Dose: Not Given Levalbuterol HCl (Xopenex) 0.63 mg INH RQ8 PRN PRN Reason: Wheezing Lorazepam (Ativan) 0.5 mg PO DAILY [facility] Last Admin: 06/20/18 08:33 Dose: 0.5 mg Magnesium Hydroxide (Milk Of Magnesia) 30 ml PO DAILY PRN PRN Reason: Constipation Last Admin: 06/17/18 21:36 Dose: 30 ml Metformin HCl (Glucophage) 500 mg PO BID [facility] Last Admin: 06/20/18 08:36 Dose: 500 mg Montelukast Sodium (Singulair) 10 mg PO HS [facility] Last Admin: 06/19/18 21:33 Dose: 10 mg Multivitamins/Minerals (Therapeutic-M Tab) 1 tab PO DAILY [facility] Last Admin: 06/20/18 08:37 Dose: 1 tab Nystatin (Nystop Topical Powder) 1 applic TOP TID [facility] Last Admin: 06/20/18 08:36 Dose: 1 applic Pantoprazole Sodium (Protonix Ec Tab) 40 mg PO DAILY [facility] Last Admin: 06/20/18 08:37 Dose: 40 mg Sennosides (Senokot Tab) 8.6 mg PO HS [facility] Last Admin: 06/19/18 21:33 Dose: 8.6 mg - Labs Labs: 06/19/18 10:15 - Constitutional Appears: Well, Non-toxic, No Acute Distress - Head Exam Head Exam: ATRAUMATIC, NORMOCEPHALIC - Extremities Exam Additional comments: Left Lower extremity exam: VASC: DP/PT pulses palpable 1/4, Cap refill <3 secs x 5, Temp gradient warm to cool from proximal to distal, Periwound erythema noted, no erythema otherwise, No edema noted. NEURO: Protective sensation diminished. DERM: left lateral malleolus wound measuring 0.2 X 0.2 cm (almost healed) with 100% granular base, Periwound erythema noted, no drainage noted on the dressing, no malodor, no clinical signs of infection. Dryness and desquamation noted to the anterior ankle. MSK: Mild pain on palpation to the wound - Neurological Exam Neurological Exam: Alert, Awake, Oriented x3 Assessment and Plan - Assessment and Plan (Free Text) Assessment: 88 y/o female seen and evaluated at bedside for a stable left ankle wound Plan: Patient seen and evaluated at the bedside with Dr. You Plan discussed with Dr. You Chart, labs and vitals reviewed; Afebrile, No leukocytosis Wound cleansed with saline and dressed with medihoney and DSD Ordered Ammonium lactate 12% to be applied to the dry LLE BID. Podiatry will continue to follow up the patient while in house Patient will follow up with Dr. You upon discharge
[2018-06-20] MEDS: Ammonium Lactate 12% Cream (140 g) TOP SCH ×2 (10:18→16:08)
--- NOTE | 2018-06-20 15:29 | CP.PCM.PN ---
Subjective - Date & Time of Evaluation Date of Evaluation: 06/20/18 Time of Evaluation: 14:40 - Subjective Subjective: NO COMPLAINTS NO FURTHER RECTAL BLEEDING Objective - Vital Signs/Intake and Output Vital Signs (last 24 hours): Temp Pulse Resp BP Pulse Ox 97.7 F 79 20 156/73 H 99 06/20/18 08:26 06/20/18 08:36 06/20/18 08:26 06/20/18 08:36 06/20/18 08:26 - Medications Medications: Current Medications Acetaminophen (Tylenol 325mg Tab) 650 mg PO Q6 PRN PRN Reason: Pain, moderate (4-7) Last Admin: 06/18/18 09:59 Dose: 650 mg Albuterol/Ipratropium (Duoneb 3 Mg/0.5 Mg (3 Ml) Ud) 3 ml IH Q12 [facility] Last Admin: 06/20/18 08:37 Dose: 3 ml Alendronate Sodium (Fosamax) 70 mg PO FR [facility] Last Admin: 06/19/18 15:35 Dose: 70 mg Amlodipine Besylate (Norvasc) 5 mg PO DAILY [facility] Last Admin: 06/20/18 08:36 Dose: 5 mg Atorvastatin Calcium (Lipitor) 10 mg PO HS [facility] Last Admin: 06/19/18 21:33 Dose: 10 mg Budesonide (Pulmicort Respules) 0.25 mg IH Q12 [facility] Last Admin: 06/20/18 08:37 Dose: 0.25 mg Carvedilol (Coreg) 3.125 mg PO Q12@0900,2100 [facility] Last Admin: 06/20/18 08:35 Dose: 3.125 mg Docusate Sodium (Colace) 100 mg PO TID [facility] Last Admin: 06/20/18 12:22 Dose: 100 mg Enalapril Maleate (Vasotec) 20 mg PO DAILY [facility] Last Admin: 06/20/18 08:37 Dose: 20 mg Ferrous Sulfate (Feosol) 325 mg PO DAILY [facility] Last Admin: 06/20/18 08:39 Dose: 325 mg Guaifenesin (Mucinex La) 600 mg PO Q12 [facility] Last Admin: 06/20/18 08:36 Dose: 600 mg Hydrocortisone (Hydrocortisone 2.5%) 1 applic TOP BID [facility] Last Admin: 06/20/18 08:36 Dose: 1 applic Ipratropium [place] (Atrovent) 0.5 mg IH RQ6 [facility] Last Admin: 06/20/18 14:00 Dose: 0.5 mg Lactic Acid (Lac-Hydrin 12% Cream (140 G)) 1 ea TOP BID [facility] Last Admin: 06/20/18 10:18 Dose: 1 applic Levalbuterol HCl (Xopenex) 0.63 mg INH RQ8 PRN PRN Reason: Wheezing Lorazepam (Ativan) 0.5 mg PO DAILY [facility] Last Admin: 06/20/18 08:33 Dose: 0.5 mg Magnesium Hydroxide (Milk Of Magnesia) 30 ml PO DAILY PRN PRN Reason: Constipation Last Admin: 06/17/18 21:36 Dose: 30 ml Metformin HCl (Glucophage) 500 mg PO BID [facility] Last Admin: 06/20/18 08:36 Dose: 500 mg Montelukast Sodium (Singulair) 10 mg PO HS [facility] Last Admin: 06/19/18 21:33 Dose: 10 mg Multivitamins/Minerals (Therapeutic-M Tab) 1 tab PO DAILY [facility] Last Admin: 06/20/18 08:37 Dose: 1 tab Nystatin (Nystop Topical Powder) 1 applic TOP TID [facility] Last Admin: 06/20/18 12:22 Dose: 1 applic Pantoprazole Sodium (Protonix Ec Tab) 40 mg PO DAILY [facility] Last Admin: 06/20/18 08:37 Dose: 40 mg Sennosides (Senokot Tab) 8.6 mg PO HS [facility] Last Admin: 06/19/18 21:33 Dose: 8.6 mg - Labs Labs: 06/19/18 10:15 - Respiratory Exam Respiratory Exam: Clear to Ausculation Bilateral - Cardiovascular Exam Cardiovascular Exam: REGULAR RHYTHM, +S1, +S2 - Extremities Exam Extremities Exam: Normal Inspection Assessment and Plan - Assessment and Plan (Free Text) Assessment: HEMORRHOIDS WITH GI BLEED CAD WITH RECENT AWMI HYPERTENSION DM COPD Plan: CONTINUE CARVEDILOL, ATORVASTATIN, AMLODIPINE, ENALAPRIL, METFORMEN AND COPD ME DICATIONS I WOULD RECOMMEND RESTARTING A COATED ASA AT 81 MGS DAILY WITH MEALS DUE TO HER RECENT MS IF OK WITH GI HER RECTAL BLEED WAS PROBABLY FROM HEMORRHOIDS AND THERE HASN'T BEEN ANY FURTHER RECTAL BLEEDING SINCE ADMISSION
--- NOTE | 2018-06-20 17:30 | CP.PCM.PN ---
Subjective - Date & Time of Evaluation Date of Evaluation: 06/20/18 Time of Evaluation: 17:29 - Subjective Subjective: Patient seen in the room doing well eating dinner didn't have therapies today given all the new admits denies sob/cp in good spirits continue current care Objective - Vital Signs/Intake and Output Vital Signs (last 24 hours): Temp Pulse Resp BP Pulse Ox 98.9 F 78 20 135/68 96 06/20/18 15:52 06/20/18 15:52 06/20/18 15:52 06/20/18 15:52 06/20/18 15:52 - Medications Medications: Current Medications Acetaminophen (Tylenol 325mg Tab) 650 mg PO Q6 PRN PRN Reason: Pain, moderate (4-7) Last Admin: 06/18/18 09:59 Dose: 650 mg Albuterol/Ipratropium (Duoneb 3 Mg/0.5 Mg (3 Ml) Ud) 3 ml IH Q12 [facility] Last Admin: 06/20/18 08:37 Dose: 3 ml Alendronate Sodium (Fosamax) 70 mg PO FR [facility] Last Admin: 06/19/18 15:35 Dose: 70 mg Amlodipine Besylate (Norvasc) 5 mg PO DAILY [facility] Last Admin: 06/20/18 08:36 Dose: 5 mg Aspirin (Ecotrin) 81 mg PO DAILY [facility] Atorvastatin Calcium (Lipitor) 10 mg PO HS [facility] Last Admin: 06/19/18 21:33 Dose: 10 mg Budesonide (Pulmicort Respules) 0.25 mg IH Q12 [facility] Last Admin: 06/20/18 08:37 Dose: 0.25 mg Carvedilol (Coreg) 3.125 mg PO Q12@0900,2100 [facility] Last Admin: 06/20/18 08:35 Dose: 3.125 mg Docusate Sodium (Colace) 100 mg PO TID [facility] Last Admin: 06/20/18 16:07 Dose: 100 mg Enalapril Maleate (Vasotec) 20 mg PO DAILY [facility] Last Admin: 06/20/18 08:37 Dose: 20 mg Ferrous Sulfate (Feosol) 325 mg PO DAILY [facility] Last Admin: 06/20/18 08:39 Dose: 325 mg Guaifenesin (Mucinex La) 600 mg PO Q12 [facility] Last Admin: 06/20/18 08:36 Dose: 600 mg Hydrocortisone (Hydrocortisone 2.5%) 1 applic TOP BID [facility] Last Admin: 06/20/18 16:07 Dose: 1 applic Ipratropium [place] (Atrovent) 0.5 mg IH RQ6 [facility] Last Admin: 06/20/18 14:00 Dose: 0.5 mg Lactic Acid (Lac-Hydrin 12% Cream (140 G)) 1 ea TOP BID [facility] Last Admin: 06/20/18 16:08 Dose: 1 applic Levalbuterol HCl (Xopenex) 0.63 mg INH RQ8 PRN PRN Reason: Wheezing Lorazepam (Ativan) 0.5 mg PO DAILY [facility] Last Admin: 06/20/18 08:33 Dose: 0.5 mg Magnesium Hydroxide (Milk Of Magnesia) 30 ml PO DAILY PRN PRN Reason: Constipation Last Admin: 06/17/18 21:36 Dose: 30 ml Metformin HCl (Glucophage) 500 mg PO BID [facility] Last Admin: 06/20/18 16:07 Dose: 500 mg Montelukast Sodium (Singulair) 10 mg PO HS [facility] Last Admin: 06/19/18 21:33 Dose: 10 mg Multivitamins/Minerals (Therapeutic-M Tab) 1 tab PO DAILY [facility] Last Admin: 06/20/18 08:37 Dose: 1 tab Nystatin (Nystop Topical Powder) 1 applic TOP TID [facility] Last Admin: 06/20/18 16:08 Dose: 1 applic Pantoprazole Sodium (Protonix Ec Tab) 40 mg PO DAILY [facility] Last Admin: 06/20/18 08:37 Dose: 40 mg Sennosides (Senokot Tab) 8.6 mg PO HS [facility] Last Admin: 06/19/18 21:33 Dose: 8.6 mg - Labs Labs: 06/19/18 10:15
[2018-06-21] MEDS: Ipratropium 0.02% Inhal Soln (0.5 mg/2.5 ml) UD IH SCH ×4 (00:59→19:09)
[2018-06-21] MEDS: Albuterol-Ipratrop 3 mg / 0.5 (3 ml) UD IH SCH ×2 (07:20→19:09)
[2018-06-21] MEDS: Budesonide 0.25 mg/2 ml Inhal Susp UD IH SCH ×2 (07:20→19:09)
[2018-06-21] MEDS: guaiFENesin 600 mg ER Tab PO SCH ×2 (09:16→21:28)
[2018-06-21] MEDS: Pantoprazole 40 mg EC Tab PO SCH (09:17)
[2018-06-21] MEDS: Ammonium Lactate 12% Cream (140 g) TOP SCH ×2 (09:17→16:42)
[2018-06-21] MEDS: Multivitamin With Minerals Tab PO SCH (09:18)
[2018-06-21 11:04] LABS: HEMOGLOBIN 10.8 g/dL (12.0-16.0); MEAN CELL VOLUME 101.1 fl (81.0-99.0); MEAN CORPUSCULAR HEMOGLOBIN 33.1 pg (27.0-31.0); MEAN CORPUSCULAR HGB CONC 32.8 g/dL (33.0-37.0); RBC 3.26 Mil/uL (3.80-5.20); RED CELL DISTRIBUTION WIDTH 14.1 % (11.5-14.5); WHITE BLOOD COUNT 5.7 K/uL (4.8-10.8)
[2018-06-21 11:18] LABS: ALB/GLOB RATIO 1.3 (1.0-2.1); ALT/SGPT 31 U/L (9-52); AST/SGOT 36 U/L (14-36); BLOOD UREA NITROGEN 13 mg/dl (7-17); CALCIUM 8.9 mg/dL (8.4-10.2); GFR NON-AFRICAN AMERICAN > 60
--- NOTE | 2018-06-21 17:19 | CP.PCM.PN ---
Subjective - Date & Time of Evaluation Date of Evaluation: 06/21/18 Time of Evaluation: 22:22 - Subjective Subjective: Doing well Objective - Vital Signs/Intake and Output Vital Signs (last 24 hours): Temp Pulse Resp BP Pulse Ox 97.5 F L 70 20 156/64 H 98 06/21/18 16:08 06/21/18 16:08 06/21/18 16:08 06/21/18 16:08 06/21/18 16:08 - Medications Medications: Current Medications Acetaminophen (Tylenol 325mg Tab) 650 mg PO Q6 PRN PRN Reason: Pain, moderate (4-7) Last Admin: 06/18/18 09:59 Dose: 650 mg Albuterol/Ipratropium (Duoneb 3 Mg/0.5 Mg (3 Ml) Ud) 3 ml IH Q12 [facility] Last Admin: 06/21/18 07:20 Dose: 3 ml Alendronate Sodium (Fosamax) 70 mg PO FR [facility] Last Admin: 06/19/18 15:35 Dose: 70 mg Amlodipine Besylate (Norvasc) 5 mg PO DAILY [facility] Last Admin: 06/21/18 09:16 Dose: 5 mg Aspirin (Ecotrin) 81 mg PO DAILY [facility] Last Admin: 06/21/18 09:17 Dose: 81 mg Atorvastatin Calcium (Lipitor) 10 mg PO HS [facility] Last Admin: 06/20/18 22:07 Dose: 10 mg Budesonide (Pulmicort Respules) 0.25 mg IH Q12 [facility] Last Admin: 06/21/18 07:20 Dose: 0.25 mg Carvedilol (Coreg) 3.125 mg PO Q12@0900,2100 [facility] Last Admin: 06/21/18 09:15 Dose: 3.125 mg Docusate Sodium (Colace) 100 mg PO TID [facility] Last Admin: 06/21/18 16:45 Dose: 100 mg Enalapril Maleate (Vasotec) 20 mg PO DAILY [facility] Last Admin: 06/21/18 09:17 Dose: 20 mg Ferrous Sulfate (Feosol) 325 mg PO DAILY [facility] Last Admin: 06/21/18 09:20 Dose: 325 mg Guaifenesin (Mucinex La) 600 mg PO Q12 [facility] Last Admin: 06/21/18 09:16 Dose: 600 mg Hydrocortisone (Hydrocortisone 2.5%) 1 applic TOP BID [facility] Last Admin: 06/21/18 16:43 Dose: 1 applic Ipratropium [place] (Atrovent) 0.5 mg IH RQ6 [facility] Last Admin: 06/21/18 13:00 Dose: 0.5 mg Lactic Acid (Lac-Hydrin 12% Cream (140 G)) 1 ea TOP BID [facility] Last Admin: 06/21/18 16:42 Dose: 1 applic Levalbuterol HCl (Xopenex) 0.63 mg INH RQ8 PRN PRN Reason: Wheezing Lorazepam (Ativan) 0.5 mg PO DAILY [facility] Last Admin: 06/21/18 09:20 Dose: 0.5 mg Magnesium Hydroxide (Milk Of Magnesia) 30 ml PO DAILY PRN PRN Reason: Constipation Last Admin: 06/17/18 21:36 Dose: 30 ml Metformin HCl (Glucophage) 500 mg PO BID [facility] Last Admin: 06/21/18 16:43 Dose: 500 mg Montelukast Sodium (Singulair) 10 mg PO HS [facility] Last Admin: 06/20/18 22:07 Dose: 10 mg Multivitamins/Minerals (Therapeutic-M Tab) 1 tab PO DAILY [facility] Last Admin: 06/21/18 09:18 Dose: 1 tab Nystatin (Nystop Topical Powder) 1 applic TOP TID [facility] Last Admin: 06/21/18 16:41 Dose: 1 applic Pantoprazole Sodium (Protonix Ec Tab) 40 mg PO DAILY [facility] Last Admin: 06/21/18 09:17 Dose: 40 mg Sennosides (Senokot Tab) 8.6 mg PO HS [facility] Last Admin: 06/20/18 22:07 Dose: 8.6 mg - Labs Labs: 06/21/18 11:00 06/21/18 11:00 - Respiratory Exam Respiratory Exam: NORMAL BREATHING PATTERN - Cardiovascular Exam Cardiovascular Exam: REGULAR RHYTHM - GI/Abdominal Exam GI & Abdominal Exam: Normal Bowel Sounds Assessment and Plan - Assessment and Plan (Free Text) Assessment: Deconditioning TCU Physiatry Rectal bleeding stable Hx rectal prolapse Hx hemorrhoids Surgery GI Refusing w/u 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 Nephrology Samsca 15 mg 3x week S/P Acute ant wall MA + CE CT scan CHF O2 JAYESH B-anina Nitrates ASA Cardiology Echo good LV fxn S/P Fall etiol?? 2 to above? COPD Prov Atrovent Chronic anxiety Ativan
[2018-06-22] MEDS: Ipratropium 0.02% Inhal Soln (0.5 mg/2.5 ml) UD IH SCH ×4 (01:42→19:01)
[2018-06-22] MEDS: Albuterol-Ipratrop 3 mg / 0.5 (3 ml) UD IH SCH ×4 (07:40→21:39)
[2018-06-22] MEDS: Budesonide 0.25 mg/2 ml Inhal Susp UD IH SCH ×4 (07:40→21:40)
[2018-06-22] MEDS: Multivitamin With Minerals Tab PO SCH (08:22)
[2018-06-22] MEDS: Pantoprazole 40 mg EC Tab PO SCH (08:22)
[2018-06-22] MEDS: Ammonium Lactate 12% Cream (140 g) TOP SCH ×2 (08:25→16:32)
[2018-06-22] MEDS: guaiFENesin 600 mg ER Tab PO SCH ×2 (08:25→20:25)
--- NOTE | 2018-06-22 09:50 | CP.PCM.PN ---
Subjective - Date & Time of Evaluation Date of Evaluation: 06/22/18 Time of Evaluation: 09:48 - Subjective Subjective: Podiatry Progress note for Dr. You, 88 y/o female seen and evaluated in TCU at bedside for left ankle wound. Patient states she is feeling better. Patient denies any pain at her ulcer site. Patient denies any other pedal complaints at this time. Patient denies any overnight F/N/V/SOB/CP. Objective - Vital Signs/Intake and Output Vital Signs (last 24 hours): Temp Pulse Resp BP Pulse Ox 97.7 F 71 20 173/100 H 98 06/22/18 09:29 06/22/18 09:31 06/21/18 19:31 06/22/18 09:31 06/21/18 19:31 - Medications Medications: Current Medications Acetaminophen (Tylenol 325mg Tab) 650 mg PO Q6 PRN PRN Reason: Pain, moderate (4-7) Last Admin: 06/22/18 01:42 Dose: 650 mg Albuterol/Ipratropium (Duoneb 3 Mg/0.5 Mg (3 Ml) Ud) 3 ml IH Q12 [facility] Last Admin: 06/22/18 07:40 Dose: 3 ml Alendronate Sodium (Fosamax) 70 mg PO FR [facility] Last Admin: 06/19/18 15:35 Dose: 70 mg Amlodipine Besylate (Norvasc) 5 mg PO DAILY [facility] Last Admin: 06/22/18 09:30 Dose: 5 mg Aspirin (Ecotrin) 81 mg PO DAILY [facility] Last Admin: 06/22/18 08:23 Dose: 81 mg Atorvastatin Calcium (Lipitor) 10 mg PO HS [facility] Last Admin: 06/21/18 21:28 Dose: 10 mg Budesonide (Pulmicort Respules) 0.25 mg IH Q12 [facility] Last Admin: 06/22/18 07:40 Dose: 0.25 mg Carvedilol (Coreg) 3.125 mg PO Q12@0900,2100 [facility] Last Admin: 06/22/18 09:31 Dose: 3.125 mg Docusate Sodium (Colace) 100 mg PO TID [facility] Last Admin: 06/22/18 08:22 Dose: 100 mg Enalapril Maleate (Vasotec) 20 mg PO DAILY [facility] Last Admin: 06/22/18 09:30 Dose: 20 mg Ferrous Sulfate (Feosol) 325 mg PO DAILY [facility] Last Admin: 06/22/18 08:22 Dose: 325 mg Guaifenesin (Mucinex La) 600 mg PO Q12 [facility] Last Admin: 06/22/18 08:25 Dose: 600 mg Hydrocortisone (Hydrocortisone 2.5%) 1 applic TOP BID [facility] Last Admin: 06/22/18 08:31 Dose: 1 applic Ipratropium [place] (Atrovent) 0.5 mg IH RQ6 [facility] Last Admin: 06/22/18 07:41 Dose: 0.5 mg Lactic Acid (Lac-Hydrin 12% Cream (140 G)) 1 ea TOP BID [facility] Last Admin: 06/22/18 08:25 Dose: 1 applic Levalbuterol HCl (Xopenex) 0.63 mg INH RQ8 PRN PRN Reason: Wheezing Lorazepam (Ativan) 0.5 mg PO DAILY [facility] Last Admin: 06/22/18 08:21 Dose: 0.5 mg Magnesium Hydroxide (Milk Of Magnesia) 30 ml PO DAILY PRN PRN Reason: Constipation Last Admin: 06/17/18 21:36 Dose: 30 ml Metformin HCl (Glucophage) 500 mg PO BID [facility] Last Admin: 06/22/18 08:22 Dose: 500 mg Montelukast Sodium (Singulair) 10 mg PO HS [facility] Last Admin: 06/21/18 21:29 Dose: 10 mg Multivitamins/Minerals (Therapeutic-M Tab) 1 tab PO DAILY [facility] Last Admin: 06/22/18 08:22 Dose: 1 tab Nystatin (Nystop Topical Powder) 1 applic TOP TID [facility] Last Admin: 06/22/18 08:25 Dose: 1 applic Pantoprazole Sodium (Protonix Ec Tab) 40 mg PO DAILY [facility] Last Admin: 06/22/18 08:22 Dose: 40 mg Sennosides (Senokot Tab) 8.6 mg PO HS [facility] Last Admin: 06/21/18 21:29 Dose: 8.6 mg - Labs Labs: 06/21/18 11:00 06/21/18 11:00 - Constitutional Appears: Well, Non-toxic, No Acute Distress - Head Exam Head Exam: ATRAUMATIC - Extremities Exam Additional comments: Left Lower extremity exam: VASC: DP/PT pulses palpable 1/4, Cap refill <3 secs x 5, Temp gradient warm to cool from proximal to distal, Periwound erythema noted, no erythema otherwise, No edema noted. NEURO: Protective sensation diminished. DERM: left lateral malleolus wound measuring 0.2 X 0.2 cm (almost healed) with 100% granular base, Periwound erythema noted, no drainage noted on the dressing, no malodor, no clinical signs of infection. Dryness and desquamation noted to the anterior ankle. MSK: Mild pain on palpation to the wound - Neurological Exam Neurological Exam: Alert, Awake, Oriented x3 - Psychiatric Exam Psychiatric exam: Normal Affect, Normal Mood Assessment and Plan - Assessment and Plan (Free Text) Assessment: 88 y/o female seen and evaluated at bedside for a stable left ankle wound Plan: Patient seen and evaluated at the bedside. Plan discussed with Dr. You Chart, labs and vitals reviewed; Afebrile, No leukocytosis Wound cleansed with saline and dressed with medihoney and DSD continue Ammonium lactate 12% to the dry LLE BID. Podiatry will continue to follow up the patient while in house Patient will follow up with Dr. You upon discharge
[2018-06-22] MEDS ORDERED: Tolvaptan 15 MG TAB PO ONE (09:51)
--- NOTE | 2018-06-22 10:11 | CP.PCM.PN ---
Subjective - Date & Time of Evaluation Date of Evaluation: 06/22/18 Time of Evaluation: 09:30 - Subjective Subjective: NO CHEST PAIN OR SOB FEELS NERVOUS AND ANXIOUS Objective - Vital Signs/Intake and Output Vital Signs (last 24 hours): Temp Pulse Resp BP Pulse Ox 97.7 F 71 20 173/100 H 98 06/22/18 09:29 06/22/18 09:31 06/21/18 19:31 06/22/18 09:31 06/21/18 19:31 - Medications Medications: Current Medications Acetaminophen (Tylenol 325mg Tab) 650 mg PO Q6 PRN PRN Reason: Pain, moderate (4-7) Last Admin: 06/22/18 01:42 Dose: 650 mg Albuterol/Ipratropium (Duoneb 3 Mg/0.5 Mg (3 Ml) Ud) 3 ml IH Q12 [facility] Last Admin: 06/22/18 07:40 Dose: 3 ml Alendronate Sodium (Fosamax) 70 mg PO FR [facility] Last Admin: 06/19/18 15:35 Dose: 70 mg Amlodipine Besylate (Norvasc) 5 mg PO DAILY [facility] Last Admin: 06/22/18 09:30 Dose: 5 mg Aspirin (Ecotrin) 81 mg PO DAILY [facility] Last Admin: 06/22/18 08:23 Dose: 81 mg Atorvastatin Calcium (Lipitor) 10 mg PO HS [facility] Last Admin: 06/21/18 21:28 Dose: 10 mg Budesonide (Pulmicort Respules) 0.25 mg IH Q12 [facility] Last Admin: 06/22/18 07:40 Dose: 0.25 mg Carvedilol (Coreg) 3.125 mg PO Q12@0900,2100 [facility] Last Admin: 06/22/18 09:31 Dose: 3.125 mg Docusate Sodium (Colace) 100 mg PO TID [facility] Last Admin: 06/22/18 08:22 Dose: 100 mg Enalapril Maleate (Vasotec) 20 mg PO DAILY [facility] Last Admin: 06/22/18 09:30 Dose: 20 mg Ferrous Sulfate (Feosol) 325 mg PO DAILY [facility] Last Admin: 06/22/18 08:22 Dose: 325 mg Guaifenesin (Mucinex La) 600 mg PO Q12 [facility] Last Admin: 06/22/18 08:25 Dose: 600 mg Hydrocortisone (Hydrocortisone 2.5%) 1 applic TOP BID [facility] Last Admin: 06/22/18 08:31 Dose: 1 applic Ipratropium [place] (Atrovent) 0.5 mg IH RQ6 [facility] Last Admin: 06/22/18 07:41 Dose: 0.5 mg Lactic Acid (Lac-Hydrin 12% Cream (140 G)) 1 ea TOP BID [facility] Last Admin: 06/22/18 08:25 Dose: 1 applic Levalbuterol HCl (Xopenex) 0.63 mg INH RQ8 PRN PRN Reason: Wheezing Lorazepam (Ativan) 0.5 mg PO DAILY [facility] Last Admin: 06/22/18 08:21 Dose: 0.5 mg Magnesium Hydroxide (Milk Of Magnesia) 30 ml PO DAILY PRN PRN Reason: Constipation Last Admin: 06/17/18 21:36 Dose: 30 ml Metformin HCl (Glucophage) 500 mg PO BID [facility] Last Admin: 06/22/18 08:22 Dose: 500 mg Montelukast Sodium (Singulair) 10 mg PO HS [facility] Last Admin: 06/21/18 21:29 Dose: 10 mg Multivitamins/Minerals (Therapeutic-M Tab) 1 tab PO DAILY [facility] Last Admin: 06/22/18 08:22 Dose: 1 tab Nystatin (Nystop Topical Powder) 1 applic TOP TID [facility] Last Admin: 06/22/18 08:25 Dose: 1 applic Pantoprazole Sodium (Protonix Ec Tab) 40 mg PO DAILY [facility] Last Admin: 06/22/18 08:22 Dose: 40 mg Sennosides (Senokot Tab) 8.6 mg PO HS [facility] Last Admin: 06/21/18 21:29 Dose: 8.6 mg - Labs Labs: 06/21/18 11:00 06/21/18 11:00 - Respiratory Exam Respiratory Exam: Clear to Ausculation Bilateral - Cardiovascular Exam Cardiovascular Exam: REGULAR RHYTHM, +S1, +S2 - Extremities Exam Additional comments: NO LE EDEMA - Additional Findings Additional findings: BP 156/64 YESTERDAY BP WAS 173/100 THIS MORNING AND PATIENT WAS GIVEN ALPRAZOLAM SHE WAS VERY ANXIOUS Assessment and Plan - Assessment and Plan (Free Text) Assessment: HEMORRHOIDS WITH RECTAL BLEEDING ON ADMISSION-NO FURTHER BLEEDING SINCE ADMISSION CAD WITH RECENT AWMI HYPERTENSION HYPERLIPIDEMIA COPD ANXIETY Plan: CONTINUE CARVEDILOL, AMLODIPINE, ENALAPRIL, ATORVASTATIN AND COPD MEDICATIONS ASPIRIN AT 81 MGS RESTARTED FOR CAD SHE HASN'T HAD ANY FURTHER RECTAL BLEEDING SINCE ADMISSION ALPRAZOLAM GIVEN FOR ANXIETY AND WILL MONITOR BP
--- NOTE | 2018-06-22 10:50 | CP.PCM.PN ---
Subjective - Date & Time of Evaluation Date of Evaluation: 06/22/18 Time of Evaluation: 10:49 - Subjective Subjective: Patient awake and conscious and nervous somewhat Vital signs noted to be stable Objective - Vital Signs/Intake and Output Vital Signs (last 24 hours): Temp Pulse Resp BP Pulse Ox 97.7 F 71 20 173/100 H 98 06/22/18 09:29 06/22/18 09:31 06/21/18 19:31 06/22/18 09:31 06/21/18 19:31 - Medications Medications: Current Medications Acetaminophen (Tylenol 325mg Tab) 650 mg PO Q6 PRN PRN Reason: Pain, moderate (4-7) Last Admin: 06/22/18 01:42 Dose: 650 mg Albuterol/Ipratropium (Duoneb 3 Mg/0.5 Mg (3 Ml) Ud) 3 ml IH Q12 [facility] Last Admin: 06/22/18 07:40 Dose: 3 ml Alendronate Sodium (Fosamax) 70 mg PO FR [facility] Last Admin: 06/19/18 15:35 Dose: 70 mg Amlodipine Besylate (Norvasc) 5 mg PO DAILY [facility] Last Admin: 06/22/18 09:30 Dose: 5 mg Aspirin (Ecotrin) 81 mg PO DAILY [facility] Last Admin: 06/22/18 08:23 Dose: 81 mg Atorvastatin Calcium (Lipitor) 10 mg PO HS [facility] Last Admin: 06/21/18 21:28 Dose: 10 mg Budesonide (Pulmicort Respules) 0.25 mg IH Q12 [facility] Last Admin: 06/22/18 07:40 Dose: 0.25 mg Carvedilol (Coreg) 3.125 mg PO Q12@0900,2100 [facility] Last Admin: 06/22/18 09:31 Dose: 3.125 mg Docusate Sodium (Colace) 100 mg PO TID [facility] Last Admin: 06/22/18 08:22 Dose: 100 mg Enalapril Maleate (Vasotec) 20 mg PO DAILY [facility] Last Admin: 06/22/18 09:30 Dose: 20 mg Ferrous Sulfate (Feosol) 325 mg PO DAILY [facility] Last Admin: 06/22/18 08:22 Dose: 325 mg Guaifenesin (Mucinex La) 600 mg PO Q12 [facility] Last Admin: 06/22/18 08:25 Dose: 600 mg Hydrocortisone (Hydrocortisone 2.5%) 1 applic TOP BID [facility] Last Admin: 06/22/18 08:31 Dose: 1 applic Ipratropium [place] (Atrovent) 0.5 mg IH RQ6 [facility] Last Admin: 06/22/18 07:41 Dose: 0.5 mg Lactic Acid (Lac-Hydrin 12% Cream (140 G)) 1 ea TOP BID [facility] Last Admin: 06/22/18 08:25 Dose: 1 applic Levalbuterol HCl (Xopenex) 0.63 mg INH RQ8 PRN PRN Reason: Wheezing Lorazepam (Ativan) 0.5 mg PO DAILY [facility] Last Admin: 06/22/18 08:21 Dose: 0.5 mg Magnesium Hydroxide (Milk Of Magnesia) 30 ml PO DAILY PRN PRN Reason: Constipation Last Admin: 06/17/18 21:36 Dose: 30 ml Metformin HCl (Glucophage) 500 mg PO BID [facility] Last Admin: 06/22/18 08:22 Dose: 500 mg Montelukast Sodium (Singulair) 10 mg PO [facility] Last Admin: 06/21/18 21:29 Dose: 10 mg Multivitamins/Minerals (Therapeutic-M Tab) 1 tab PO DAILY [facility] Last Admin: 06/22/18 08:22 Dose: 1 tab Nystatin (Nystop Topical Powder) 1 applic TOP TID [facility] Last Admin: 06/22/18 08:25 Dose: 1 applic Pantoprazole Sodium (Protonix Ec Tab) 40 mg PO DAILY [facility] Last Admin: 06/22/18 08:22 Dose: 40 mg Sennosides (Senokot Tab) 8.6 mg PO [facility] Last Admin: 06/21/18 21:29 Dose: 8.6 mg - Labs Labs: 06/21/18 11:00 06/21/18 11:00 - Constitutional Appears: No Acute Distress - Eye Exam Eye Exam: Conjunctival injection - ENT Exam ENT Exam: Mucous Membranes Moist - Neck Exam Neck Exam: absent: Lymphadenopathy - Respiratory Exam Respiratory Exam: absent: Chest Wall Tenderness - Extremities Exam Extremities Exam: absent: Calf Tenderness - Back Exam Back Exam: absent: CVA tenderness (L), CVA tenderness (R) - Neurological Exam Neurological Exam: Alert - Psychiatric Exam Psychiatric exam: Normal Affect - Skin Skin Exam: absent: Cyanosis Assessment and Plan - Assessment and Plan (Free Text) Assessment: 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 We will give Samsca 15 mg Friday just about every other day Keep eye on serum sodium not to rise more than somewhere between 8-10 mEq per 24 hours
--- NOTE | 2018-06-22 16:50 | CP.PCM.PN ---
Subjective - Date & Time of Evaluation Date of Evaluation: 06/22/18 Time of Evaluation: 22:22 - Subjective Subjective: Above noted Na+ 131 Objective - Vital Signs/Intake and Output Vital Signs (last 24 hours): Temp Pulse Resp BP Pulse Ox 97.7 F 71 20 173/100 H 98 06/22/18 09:29 06/22/18 09:31 18 19:31 06/22/18 09:31 06/21/18 19:31 - Medications Medications: Current Medications Acetaminophen (Tylenol 325mg Tab) 650 mg PO Q6 PRN PRN Reason: Pain, moderate (4-7) Last Admin: 06/22/18 01:42 Dose: 650 mg Albuterol/Ipratropium (Duoneb 3 Mg/0.5 Mg (3 Ml) Ud) 3 ml IH Q12 [facility] Last Admin: 06/22/18 09:03 Dose: Not Given Alendronate Sodium (Fosamax) 70 mg PO FR [facility] Last Admin: 06/19/18 15:35 Dose: 70 mg Amlodipine Besylate (Norvasc) 5 mg PO DAILY [facility] Last Admin: 06/22/18 09:30 Dose: 5 mg Aspirin (Ecotrin) 81 mg PO DAILY [facility] Last Admin: 06/22/18 08:23 Dose: 81 mg Atorvastatin Calcium (Lipitor) 10 mg PO HS [facility] Last Admin: 06/21/18 21:28 Dose: 10 mg Budesonide (Pulmicort Respules) 0.25 mg IH Q12 [facility] Last Admin: 06/22/18 09:04 Dose: Not Given Carvedilol (Coreg) 3.125 mg PO Q12@0900,2100 [facility] Last Admin: 06/22/18 09:31 Dose: 3.125 mg Docusate Sodium (Colace) 100 mg PO TID [facility] Last Admin: 06/22/18 12:41 Dose: Not Given Enalapril Maleate (Vasotec) 20 mg PO DAILY [facility] Last Admin: 06/22/18 09:30 Dose: 20 mg Ferrous Sulfate (Feosol) 325 mg PO DAILY [facility] Last Admin: 06/22/18 08:22 Dose: 325 mg Guaifenesin (Mucinex La) 600 mg PO Q12 [facility] Last Admin: 06/22/18 08:25 Dose: 600 mg Hydrocortisone (Hydrocortisone 2.5%) 1 applic TOP BID [facility] Last Admin: 06/22/18 16:32 Dose: 1 applic Ipratropium Murray (Atrovent) 0.5 mg IH RQ6 [facility] Last Admin: 06/22/18 13:03 Dose: 0.5 mg Lactic Acid (Lac-Hydrin 12% Cream (140 G)) 1 ea TOP BID [facility] Last Admin: 06/22/18 16:32 Dose: 1 applic Levalbuterol HCl (Xopenex) 0.63 mg INH RQ8 PRN PRN Reason: Wheezing Lorazepam (Ativan) 0.5 mg PO DAILY [facility] Last Admin: 06/22/18 08:21 Dose: 0.5 mg Magnesium Hydroxide (Milk Of Magnesia) 30 ml PO DAILY PRN PRN Reason: Constipation Last Admin: 06/17/18 21:36 Dose: 30 ml Metformin HCl (Glucophage) 500 mg PO BID [facility] Last Admin: 06/22/18 16:32 Dose: 500 mg Montelukast Sodium (Singulair) 10 mg PO HS [facility] Last Admin: 06/21/18 21:29 Dose: 10 mg Multivitamins/Minerals (Therapeutic-M Tab) 1 tab PO DAILY [facility] Last Admin: 06/22/18 08:22 Dose: 1 tab Nystatin (Nystop Topical Powder) 1 applic TOP TID [facility] Last Admin: 06/22/18 16:32 Dose: 1 applic Pantoprazole Sodium (Protonix Ec Tab) 40 mg PO DAILY [facility] Last Admin: 06/22/18 08:22 Dose: 40 mg Sennosides (Senokot Tab) 8.6 mg PO HS [facility] Last Admin: 06/21/18 21:29 Dose: 8.6 mg - Labs Labs: 06/21/18 11:00 06/21/18 11:00 - Respiratory Exam Respiratory Exam: NORMAL BREATHING PATTERN - Cardiovascular Exam Cardiovascular Exam: REGULAR RHYTHM - GI/Abdominal Exam GI & Abdominal Exam: Normal Bowel Sounds Assessment and Plan - Assessment and Plan (Free Text) Assessment: Deconditioning TCU Physiatry Rectal bleeding stable Hx rectal prolapse Hx hemorrhoids Surgery GI Refusing w/u 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 Nephrology Samsca 15 mg 3x week S/P Acute ant wall ND + CE CT scan CHF O2 JAYESH B-annia Nitrates ASA Cardiology Echo good LV fxn S/P Fall etiol?? 2 to above? COPD Prov Atrovent Chronic anxiety Ativan
--- NOTE | 2018-06-22 19:05 | CP.PCM.PN ---
Subjective - Date & Time of Evaluation Date of Evaluation: 06/22/18 Time of Evaluation: 19:04 - Subjective Subjective: Patient seen in the room doing well denies sob.cp no joint pain motivated in therapies continue current care Objective - Vital Signs/Intake and Output Vital Signs (last 24 hours): Temp Pulse Resp BP Pulse Ox 97.7 F 70 20 161/73 H 99 06/22/18 17:22 18 17:22 18 17:22 06/22/18 17:22 06/22/18 17:22 - Medications Medications: Current Medications Acetaminophen (Tylenol 325mg Tab) 650 mg PO Q6 PRN PRN Reason: Pain, moderate (4-7) Last Admin: 06/22/18 01:42 Dose: 650 mg Albuterol/Ipratropium (Duoneb 3 Mg/0.5 Mg (3 Ml) Ud) 3 ml IH Q12 [facility] Last Admin: 06/22/18 19:02 Dose: 3 ml Alendronate Sodium (Fosamax) 70 mg PO FR [facility] Last Admin: 06/19/18 15:35 Dose: 70 mg Amlodipine Besylate (Norvasc) 5 mg PO DAILY [facility] Last Admin: 06/22/18 09:30 Dose: 5 mg Aspirin (Ecotrin) 81 mg PO DAILY [facility] Last Admin: 06/22/18 08:23 Dose: 81 mg Atorvastatin Calcium (Lipitor) 10 mg PO HS [facility] Last Admin: 06/21/18 21:28 Dose: 10 mg Budesonide (Pulmicort Respules) 0.25 mg IH Q12 [facility] Last Admin: 06/22/18 19:01 Dose: 0.25 mg Carvedilol (Coreg) 3.125 mg PO Q12@0900,2100 [facility] Last Admin: 06/22/18 09:31 Dose: 3.125 mg Docusate Sodium (Colace) 100 mg PO TID [facility] Last Admin: 06/22/18 12:41 Dose: Not Given Enalapril Maleate (Vasotec) 20 mg PO DAILY [facility] Last Admin: 06/22/18 09:30 Dose: 20 mg Ferrous Sulfate (Feosol) 325 mg PO DAILY [facility] Last Admin: 06/22/18 08:22 Dose: 325 mg Guaifenesin (Mucinex La) 600 mg PO Q12 [facility] Last Admin: 06/22/18 08:25 Dose: 600 mg Hydrocortisone (Hydrocortisone 2.5%) 1 applic TOP BID [facility] Last Admin: 06/22/18 16:32 Dose: 1 applic Ipratropium [place] (Atrovent) 0.5 mg IH RQ6 [facility] Last Admin: 06/22/18 19:01 Dose: 0.5 mg Lactic Acid (Lac-Hydrin 12% Cream (140 G)) 1 ea TOP BID [facility] Last Admin: 06/22/18 16:32 Dose: 1 applic Levalbuterol HCl (Xopenex) 0.63 mg INH RQ8 PRN PRN Reason: Wheezing Lorazepam (Ativan) 0.5 mg PO DAILY [facility] Last Admin: 06/22/18 08:21 Dose: 0.5 mg Magnesium Hydroxide (Milk Of Magnesia) 30 ml PO DAILY PRN PRN Reason: Constipation Last Admin: 06/17/18 21:36 Dose: 30 ml Metformin HCl (Glucophage) 500 mg PO BIDWM [facility] Montelukast Sodium (Singulair) 10 mg PO HS [facility] Last Admin: 06/21/18 21:29 Dose: 10 mg Multivitamins/Minerals (Therapeutic-M Tab) 1 tab PO DAILY [facility] Last Admin: 06/22/18 08:22 Dose: 1 tab Nystatin (Nystop Topical Powder) 1 applic TOP TID [facility] Last Admin: 06/22/18 16:32 Dose: 1 applic Pantoprazole Sodium (Protonix Ec Tab) 40 mg PO DAILY [facility] Last Admin: 06/22/18 08:22 Dose: 40 mg Sennosides (Senokot Tab) 8.6 mg PO HS [facility] Last Admin: 06/21/18 21:29 Dose: 8.6 mg - Labs Labs: 06/21/18 11:00 06/21/18 11:00
--- NOTE | 2018-06-22 21:02 | CP.PCM.PN ---
Subjective - Date & Time of Evaluation Date of Evaluation: 06/22/18 Time of Evaluation: 14:00 - Subjective Subjective: PATIENT HAD SEVERAL FORMED STOOLS THIS MORNING. Objective - Vital Signs/Intake and Output Vital Signs (last 24 hours): Temp Pulse Resp BP Pulse Ox 97.7 F 70 20 161/73 H 99 06/22/18 17:22 18 20:23 06/22/18 17:22 06/22/18 20:23 06/22/18 17:22 - Medications Medications: Current Medications Acetaminophen (Tylenol 325mg Tab) 650 mg PO Q6 PRN PRN Reason: Pain, moderate (4-7) Last Admin: 06/22/18 01:42 Dose: 650 mg Albuterol/Ipratropium (Duoneb 3 Mg/0.5 Mg (3 Ml) Ud) 3 ml IH Q12 [facility] Last Admin: 06/22/18 19:02 Dose: 3 ml Alendronate Sodium (Fosamax) 70 mg PO FR [facility] Last Admin: 06/19/18 15:35 Dose: 70 mg Amlodipine Besylate (Norvasc) 5 mg PO DAILY [facility] Last Admin: 06/22/18 09:30 Dose: 5 mg Aspirin (Ecotrin) 81 mg PO DAILY [facility] Last Admin: 06/22/18 08:23 Dose: 81 mg Atorvastatin Calcium (Lipitor) 10 mg PO HS [facility] Last Admin: 06/21/18 21:28 Dose: 10 mg Budesonide (Pulmicort Respules) 0.25 mg IH Q12 [facility] Last Admin: 06/22/18 19:01 Dose: 0.25 mg Carvedilol (Coreg) 3.125 mg PO Q12@0900,2100 [facility] Last Admin: 06/22/18 20:23 Dose: 3.125 mg Docusate Sodium (Colace) 100 mg PO TID [facility] Last Admin: 06/22/18 12:41 Dose: Not Given Enalapril Maleate (Vasotec) 20 mg PO DAILY [facility] Last Admin: 06/22/18 09:30 Dose: 20 mg Ferrous Sulfate (Feosol) 325 mg PO DAILY [facility] Last Admin: 06/22/18 08:22 Dose: 325 mg Guaifenesin (Mucinex La) 600 mg PO Q12 [facility] Last Admin: 06/22/18 20:25 Dose: 600 mg Hydrocortisone (Hydrocortisone 2.5%) 1 applic TOP BID [facility] Last Admin: 06/22/18 16:32 Dose: 1 applic Ipratropium [place] (Atrovent) 0.5 mg IH RQ6 [facility] Last Admin: 06/22/18 19:01 Dose: 0.5 mg Lactic Acid (Lac-Hydrin 12% Cream (140 G)) 1 ea TOP BID [facility] Last Admin: 06/22/18 16:32 Dose: 1 applic Levalbuterol HCl (Xopenex) 0.63 mg INH RQ8 PRN PRN Reason: Wheezing Lorazepam (Ativan) 0.5 mg PO DAILY [facility] Last Admin: 06/22/18 08:21 Dose: 0.5 mg Magnesium Hydroxide (Milk Of Magnesia) 30 ml PO DAILY PRN PRN Reason: Constipation Last Admin: 06/17/18 21:36 Dose: 30 ml Metformin HCl (Glucophage) 500 mg PO BIDWM [facility] Montelukast Sodium (Singulair) 10 mg PO HS [facility] Last Admin: 06/21/18 21:29 Dose: 10 mg Multivitamins/Minerals (Therapeutic-M Tab) 1 tab PO DAILY [facility] Last Admin: 06/22/18 08:22 Dose: 1 tab Nystatin (Nystop Topical Powder) 1 applic TOP TID [facility] Last Admin: 06/22/18 16:32 Dose: 1 applic Pantoprazole Sodium (Protonix Ec Tab) 40 mg PO DAILY [facility] Last Admin: 06/22/18 08:22 Dose: 40 mg Sennosides (Senokot Tab) 8.6 mg PO HS [facility] Last Admin: 06/21/18 21:29 Dose: 8.6 mg - Labs Labs: 06/21/18 11:00 06/21/18 11:00 - Head Exam Head Exam: ATRAUMATIC - Eye Exam Eye Exam: Normal appearance - ENT Exam ENT Exam: Mucous Membranes Moist - Neck Exam Neck Exam: Full ROM - Respiratory Exam Respiratory Exam: Clear to Ausculation Bilateral - Cardiovascular Exam Cardiovascular Exam: REGULAR RHYTHM, +S1, +S2 - GI/Abdominal Exam GI & Abdominal Exam: Soft. absent: Tenderness Assessment and Plan (1) GI bleed Assessment & Plan: Patient with several formed BMs this AM. Hold colace today. May resume tomorrow. Status: Acute
[2018-06-23] MEDS: Ipratropium 0.02% Inhal Soln (0.5 mg/2.5 ml) UD IH SCH ×4 (01:19→20:01)
[2018-06-23] MEDS: Albuterol-Ipratrop 3 mg / 0.5 (3 ml) UD IH SCH ×3 (07:39→20:01)
[2018-06-23] MEDS: Budesonide 0.25 mg/2 ml Inhal Susp UD IH SCH ×3 (07:39→20:01)
[2018-06-23] MEDS: Ammonium Lactate 12% Cream (140 g) TOP SCH ×2 (08:31→16:28)
[2018-06-23] MEDS: guaiFENesin 600 mg ER Tab PO SCH ×2 (08:31→21:06)
[2018-06-23] MEDS: Multivitamin With Minerals Tab PO SCH (08:32)
[2018-06-23] MEDS: Pantoprazole 40 mg EC Tab PO SCH (08:32)
--- NOTE | 2018-06-23 09:34 | CP.PCM.PN ---
Subjective - Date & Time of Evaluation Date of Evaluation: 06/23/18 Time of Evaluation: 09:33 - Subjective Subjective: no new event reported Patient is stable clinic Vital signs stable Objective - Vital Signs/Intake and Output Vital Signs (last 24 hours): Temp Pulse Resp BP Pulse Ox 97.2 F L 70 18 170/70 H 98 06/23/18 08:16 06/23/18 08:32 06/23/18 08:16 06/23/18 08:32 06/23/18 08:16 - Medications Medications: Current Medications Acetaminophen (Tylenol 325mg Tab) 650 mg PO Q6 PRN PRN Reason: Pain, moderate (4-7) Last Admin: 06/22/18 01:42 Dose: 650 mg Albuterol/Ipratropium (Duoneb 3 Mg/0.5 Mg (3 Ml) Ud) 3 ml IH Q12 [facility] Last Admin: 06/23/18 07:39 Dose: 3 ml Alendronate Sodium (Fosamax) 70 mg PO FR [facility] Last Admin: 06/19/18 15:35 Dose: 70 mg Amlodipine Besylate (Norvasc) 5 mg PO DAILY [facility] Last Admin: 06/23/18 08:32 Dose: 5 mg Aspirin (Ecotrin) 81 mg PO DAILY [facility] Last Admin: 06/23/18 08:30 Dose: 81 mg Atorvastatin Calcium (Lipitor) 10 mg PO HS [facility] Last Admin: 06/22/18 21:08 Dose: 10 mg Budesonide (Pulmicort Respules) 0.25 mg IH Q12 [facility] Last Admin: 06/23/18 07:39 Dose: 0.25 mg Carvedilol (Coreg) 3.125 mg PO Q12@0900,2100 [facility] Last Admin: 06/23/18 08:29 Dose: 3.125 mg Docusate Sodium (Colace) 100 mg PO TID [facility] Last Admin: 06/23/18 08:38 Dose: 100 mg Enalapril Maleate (Vasotec) 20 mg PO DAILY [facility] Last Admin: 06/23/18 08:33 Dose: 20 mg Ferrous Sulfate (Feosol) 325 mg PO DAILY [facility] Last Admin: 06/23/18 08:30 Dose: 325 mg Guaifenesin (Mucinex La) 600 mg PO Q12 [facility] Last Admin: 06/23/18 08:31 Dose: 600 mg Hydrocortisone (Hydrocortisone 2.5%) 1 applic TOP BID [facility] Last Admin: 06/23/18 08:31 Dose: 1 applic Ipratropium [place] (Atrovent) 0.5 mg IH RQ6 [facility] Last Admin: 06/23/18 07:39 Dose: 0.5 mg Lactic Acid (Lac-Hydrin 12% Cream (140 G)) 1 ea TOP BID [facility] Last Admin: 06/23/18 08:31 Dose: 1 applic Levalbuterol HCl (Xopenex) 0.63 mg INH RQ8 PRN PRN Reason: Wheezing Lorazepam (Ativan) 0.5 mg PO DAILY [facility] Last Admin: 06/23/18 08:29 Dose: 0.5 mg Magnesium Hydroxide (Milk Of Magnesia) 30 ml PO DAILY PRN PRN Reason: Constipation Last Admin: 06/17/18 21:36 Dose: 30 ml Metformin HCl (Glucophage) 500 mg PO BIDWM [facility] Last Admin: 06/23/18 08:31 Dose: 500 mg Montelukast Sodium (Singulair) 10 mg PO [facility] Last Admin: 06/22/18 21:08 Dose: 10 mg Multivitamins/Minerals (Therapeutic-M Tab) 1 tab PO DAILY [facility] Last Admin: 06/23/18 08:32 Dose: 1 tab Nystatin (Nystop Topical Powder) 1 applic TOP TID [facility] Last Admin: 06/23/18 08:32 Dose: 1 applic Pantoprazole Sodium (Protonix Ec Tab) 40 mg PO DAILY [facility] Last Admin: 06/23/18 08:32 Dose: 40 mg Sennosides (Senokot Tab) 8.6 mg PO [facility] Last Admin: 06/22/18 21:09 Dose: Not Given - Labs Labs: 06/21/18 11:00 06/21/18 11:00 - Constitutional Appears: No Acute Distress - Eye Exam Eye Exam: Conjunctival injection - ENT Exam ENT Exam: Mucous Membranes Moist - Neck Exam Neck Exam: absent: Lymphadenopathy - Respiratory Exam Respiratory Exam: NORMAL BREATHING PATTERN - Cardiovascular Exam Cardiovascular Exam: absent: Gallop, JVD, Rubs - GI/Abdominal Exam GI & Abdominal Exam: Soft, Normal Bowel Sounds - Extremities Exam Extremities Exam: absent: Calf Tenderness - Back Exam Back Exam: absent: CVA tenderness (L), CVA tenderness (R) - Neurological Exam Neurological Exam: Alert - Psychiatric Exam Psychiatric exam: Normal Affect - Skin Skin Exam: absent: Cyanosis Assessment and Plan - Assessment and Plan (Free Text) Assessment: 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
[2018-06-23 10:10] LABS: BLOOD UREA NITROGEN 12 mg/dl (7-17); CALCIUM 8.8 mg/dL (8.4-10.2); GFR NON-AFRICAN AMERICAN > 60
[2018-06-23] MEDS ORDERED: Tolvaptan 15 MG TAB PO ONE (10:44)
--- NOTE | 2018-06-23 18:01 | CP.PCM.PN ---
Subjective - Date & Time of Evaluation Date of Evaluation: 06/23/18 Time of Evaluation: 18:00 - Subjective Subjective: Patient seen in the room doing well ambulated 100' with RW and denies sob/cp right arm long-standing lack of ROM did not want an injection continue current care Objective - Vital Signs/Intake and Output Vital Signs (last 24 hours): Temp Pulse Resp BP Pulse Ox 97.9 F 68 20 128/70 99 06/23/18 15:44 06/23/18 15:44 06/23/18 15:44 06/23/18 15:44 06/23/18 15:44 - Medications Medications: Current Medications Acetaminophen (Tylenol 325mg Tab) 650 mg PO Q6 PRN PRN Reason: Pain, moderate (4-7) Last Admin: 06/22/18 01:42 Dose: 650 mg Albuterol/Ipratropium (Duoneb 3 Mg/0.5 Mg (3 Ml) Ud) 3 ml IH Q12 [facility] Last Admin: 06/23/18 09:10 Dose: Not Given Alendronate Sodium (Fosamax) 70 mg PO FR [facility] Last Admin: 06/19/18 15:35 Dose: 70 mg Amlodipine Besylate (Norvasc) 5 mg PO DAILY [facility] Last Admin: 06/23/18 08:32 Dose: 5 mg Aspirin (Ecotrin) 81 mg PO DAILY [facility] Last Admin: 06/23/18 08:30 Dose: 81 mg Atorvastatin Calcium (Lipitor) 10 mg PO HS [facility] Last Admin: 06/22/18 21:08 Dose: 10 mg Budesonide (Pulmicort Respules) 0.25 mg IH Q12 [facility] Last Admin: 06/23/18 09:11 Dose: Not Given Carvedilol (Coreg) 3.125 mg PO Q12@0900,2100 [facility] Last Admin: 06/23/18 08:29 Dose: 3.125 mg Docusate Sodium (Colace) 100 mg PO TID [facility] Last Admin: 06/23/18 16:27 Dose: 100 mg Enalapril Maleate (Vasotec) 20 mg PO DAILY [facility] Last Admin: 06/23/18 08:33 Dose: 20 mg Ferrous Sulfate (Feosol) 325 mg PO DAILY [facility] Last Admin: 06/23/18 08:30 Dose: 325 mg Guaifenesin (Mucinex La) 600 mg PO Q12 [facility] Last Admin: 06/23/18 08:31 Dose: 600 mg Hydrocortisone (Hydrocortisone 2.5%) 1 applic TOP BID [facility] Last Admin: 06/23/18 16:28 Dose: 1 applic Ipratropium [place] (Atrovent) 0.5 mg IH RQ6 [facility] Last Admin: 06/23/18 14:18 Dose: Not Given Lactic Acid (Lac-Hydrin 12% Cream (140 G)) 1 ea TOP BID [facility] Last Admin: 06/23/18 16:28 Dose: 1 applic Levalbuterol HCl (Xopenex) 0.63 mg INH RQ8 PRN PRN Reason: Wheezing Lorazepam (Ativan) 0.5 mg PO DAILY [facility] Last Admin: 06/23/18 08:29 Dose: 0.5 mg Magnesium Hydroxide (Milk Of Magnesia) 30 ml PO DAILY PRN PRN Reason: Constipation Last Admin: 06/17/18 21:36 Dose: 30 ml Metformin HCl (Glucophage) 500 mg PO BIDWM [facility] Last Admin: 06/23/18 16:28 Dose: 500 mg Montelukast Sodium (Singulair) 10 mg PO HS [facility] Last Admin: 06/22/18 21:08 Dose: 10 mg Multivitamins/Minerals (Therapeutic-M Tab) 1 tab PO DAILY [facility] Last Admin: 06/23/18 08:32 Dose: 1 tab Nystatin (Nystop Topical Powder) 1 applic TOP TID [facility] Last Admin: 06/23/18 16:28 Dose: 1 applic Pantoprazole Sodium (Protonix Ec Tab) 40 mg PO DAILY [facility] Last Admin: 06/23/18 08:32 Dose: 40 mg Sennosides (Senokot Tab) 8.6 mg PO HS [facility] Last Admin: 06/22/18 21:09 Dose: Not Given - Labs Labs: 06/21/18 11:00 06/23/18 08:41
--- NOTE | 2018-06-23 21:03 | CP.PCM.PN ---
Subjective - Date & Time of Evaluation Date of Evaluation: 06/23/18 Time of Evaluation: 22:22 - Subjective Subjective: Na+ 129 Objective - Vital Signs/Intake and Output Vital Signs (last 24 hours): Temp Pulse Resp BP Pulse Ox 98.7 F 72 20 154/74 H 96 06/23/18 19:44 06/23/18 20:16 06/23/18 19:44 06/23/18 19:44 06/23/18 19:44 - Medications Medications: Current Medications Acetaminophen (Tylenol 325mg Tab) 650 mg PO Q6 PRN PRN Reason: Pain, moderate (4-7) Last Admin: 06/22/18 01:42 Dose: 650 mg Albuterol/Ipratropium (Duoneb 3 Mg/0.5 Mg (3 Ml) Ud) 3 ml IH Q12 [facility] Last Admin: 06/23/18 20:01 Dose: 3 ml Alendronate Sodium (Fosamax) 70 mg PO FR [facility] Last Admin: 06/19/18 15:35 Dose: 70 mg Amlodipine Besylate (Norvasc) 5 mg PO DAILY [facility] Last Admin: 06/23/18 08:32 Dose: 5 mg Aspirin (Ecotrin) 81 mg PO DAILY [facility] Last Admin: 06/23/18 08:30 Dose: 81 mg Atorvastatin Calcium (Lipitor) 10 mg PO HS [facility] Last Admin: 06/22/18 21:08 Dose: 10 mg Budesonide (Pulmicort Respules) 0.25 mg IH Q12 [facility] Last Admin: 06/23/18 20:01 Dose: 0.25 mg Carvedilol (Coreg) 3.125 mg PO Q12@0900,2100 [facility] Last Admin: 06/23/18 08:29 Dose: 3.125 mg Docusate Sodium (Colace) 100 mg PO TID [facility] Last Admin: 06/23/18 16:27 Dose: 100 mg Enalapril Maleate (Vasotec) 20 mg PO DAILY [facility] Last Admin: 06/23/18 08:33 Dose: 20 mg Ferrous Sulfate (Feosol) 325 mg PO DAILY [facility] Last Admin: 06/23/18 08:30 Dose: 325 mg Guaifenesin (Mucinex La) 600 mg PO Q12 [facility] Last Admin: 06/23/18 08:31 Dose: 600 mg Hydrocortisone (Hydrocortisone 2.5%) 1 applic TOP BID [facility] Last Admin: 06/23/18 16:28 Dose: 1 applic Ipratropium [place] (Atrovent) 0.5 mg IH RQ6 [facility] Last Admin: 06/23/18 20:01 Dose: Not Given Lactic Acid (Lac-Hydrin 12% Cream (140 G)) 1 ea TOP BID [facility] Last Admin: 06/23/18 16:28 Dose: 1 applic Levalbuterol HCl (Xopenex) 0.63 mg INH RQ8 PRN PRN Reason: Wheezing Lorazepam (Ativan) 0.5 mg PO DAILY [facility] Last Admin: 06/23/18 08:29 Dose: 0.5 mg Magnesium Hydroxide (Milk Of Magnesia) 30 ml PO DAILY PRN PRN Reason: Constipation Last Admin: 06/17/18 21:36 Dose: 30 ml Metformin HCl (Glucophage) 500 mg PO BIDWM [facility] Last Admin: 06/23/18 16:28 Dose: 500 mg Montelukast Sodium (Singulair) 10 mg PO HS [facility] Last Admin: 06/22/18 21:08 Dose: 10 mg Multivitamins/Minerals (Therapeutic-M Tab) 1 tab PO DAILY [facility] Last Admin: 06/23/18 08:32 Dose: 1 tab Nystatin (Nystop Topical Powder) 1 applic TOP TID [facility] Last Admin: 06/23/18 16:28 Dose: 1 applic Pantoprazole Sodium (Protonix Ec Tab) 40 mg PO DAILY [facility] Last Admin: 06/23/18 08:32 Dose: 40 mg Sennosides (Senokot Tab) 8.6 mg PO HS [facility] Last Admin: 06/22/18 21:09 Dose: Not Given - Labs Labs: 06/21/18 11:00 06/23/18 08:41 - Respiratory Exam Respiratory Exam: NORMAL BREATHING PATTERN - Cardiovascular Exam Cardiovascular Exam: REGULAR RHYTHM - GI/Abdominal Exam GI & Abdominal Exam: Normal Bowel Sounds Assessment and Plan - Assessment and Plan (Free Text) Assessment: Deconditioning TCU Physiatry 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 Nephrology Samsca 15 mg 3x week Rectal bleeding stable Hx rectal prolapse Hx hemorrhoids Surgery GI Refusing w/u S/P Acute ant wall KS + CE CT scan CHF O2 JAYESH B-annia Nitrates ASA Cardiology Echo good LV fxn S/P Fall etiol?? 2 to above? COPD Prov Atrovent Chronic anxiety Ativan
[2018-06-24] MEDS: Ipratropium 0.02% Inhal Soln (0.5 mg/2.5 ml) UD IH SCH ×4 (03:12→19:21)
[2018-06-24] MEDS: Albuterol-Ipratrop 3 mg / 0.5 (3 ml) UD IH SCH ×3 (07:43→19:21)
[2018-06-24] MEDS: Budesonide 0.25 mg/2 ml Inhal Susp UD IH SCH ×3 (07:43→19:21)
--- NOTE | 2018-06-24 07:55 | CP.PCM.PN ---
Subjective - Date & Time of Evaluation Date of Evaluation: 06/24/18 Time of Evaluation: 07:53 - Subjective Subjective: Podiatry Progress note for Dr. You, 88 y/o female seen and evaluated in TCU at bedside for left ankle wound. Patient states she is feeling better. Patient denies any pain at her ulcer site. Patient denies any other pedal complaints at this time. Patient denies any overnight F/N/V/SOB/CP. Objective - Vital Signs/Intake and Output Vital Signs (last 24 hours): Temp Pulse Resp BP Pulse Ox 98.7 F 76 20 154/74 H 96 06/23/18 19:44 06/23/18 21:06 06/23/18 19:44 06/23/18 21:06 06/23/18 19:44 - Medications Medications: Current Medications Acetaminophen (Tylenol 325mg Tab) 650 mg PO Q6 PRN PRN Reason: Pain, moderate (4-7) Last Admin: 06/22/18 01:42 Dose: 650 mg Albuterol/Ipratropium (Duoneb 3 Mg/0.5 Mg (3 Ml) Ud) 3 ml IH Q12 [facility] Last Admin: 06/24/18 07:43 Dose: 3 ml Alendronate Sodium (Fosamax) 70 mg PO FR [facility] Last Admin: 06/19/18 15:35 Dose: 70 mg Amlodipine Besylate (Norvasc) 5 mg PO DAILY [facility] Last Admin: 06/23/18 08:32 Dose: 5 mg Aspirin (Ecotrin) 81 mg PO DAILY [facility] Last Admin: 06/23/18 08:30 Dose: 81 mg Atorvastatin Calcium (Lipitor) 10 mg PO HS [facility] Last Admin: 06/23/18 21:06 Dose: 10 mg Budesonide (Pulmicort Respules) 0.25 mg IH Q12 [facility] Last Admin: 06/24/18 07:43 Dose: 0.25 mg Carvedilol (Coreg) 3.125 mg PO Q12@0900,2100 [facility] Last Admin: 06/23/18 21:06 Dose: 3.125 mg Docusate Sodium (Colace) 100 mg PO TID [facility] Last Admin: 06/23/18 16:27 Dose: 100 mg Enalapril Maleate (Vasotec) 20 mg PO DAILY [facility] Last Admin: 06/23/18 08:33 Dose: 20 mg Ferrous Sulfate (Feosol) 325 mg PO DAILY [facility] Last Admin: 06/23/18 08:30 Dose: 325 mg Guaifenesin (Mucinex La) 600 mg PO Q12 [facility] Last Admin: 06/23/18 21:06 Dose: 600 mg Hydrocortisone (Hydrocortisone 2.5%) 1 applic TOP BID [facility] Last Admin: 06/23/18 16:28 Dose: 1 applic Ipratropium [place] (Atrovent) 0.5 mg IH RQ6 [facility] Last Admin: 06/24/18 07:43 Dose: 0.5 mg Lactic Acid (Lac-Hydrin 12% Cream (140 G)) 1 ea TOP BID [facility] Last Admin: 06/23/18 16:28 Dose: 1 applic Levalbuterol HCl (Xopenex) 0.63 mg INH RQ8 PRN PRN Reason: Wheezing Lorazepam (Ativan) 0.5 mg PO DAILY [facility] Last Admin: 06/23/18 08:29 Dose: 0.5 mg Magnesium Hydroxide (Milk Of Magnesia) 30 ml PO DAILY PRN PRN Reason: Constipation Last Admin: 06/17/18 21:36 Dose: 30 ml Metformin HCl (Glucophage) 500 mg PO BIDWM [facility] Last Admin: 06/23/18 16:28 Dose: 500 mg Montelukast Sodium (Singulair) 10 mg PO HS [facility] Last Admin: 06/23/18 21:06 Dose: 10 mg Multivitamins/Minerals (Therapeutic-M Tab) 1 tab PO DAILY [facility] Last Admin: 06/23/18 08:32 Dose: 1 tab Nystatin (Nystop Topical Powder) 1 applic TOP TID [facility] Last Admin: 06/23/18 16:28 Dose: 1 applic Pantoprazole Sodium (Protonix Ec Tab) 40 mg PO DAILY [facility] Last Admin: 06/23/18 08:32 Dose: 40 mg Sennosides (Senokot Tab) 8.6 mg PO HS [facility] [place] Last Admin: 06/23/18 21:12 Dose: Not Given - Labs Labs: 06/21/18 11:00 06/23/18 08:41 - Constitutional Appears: Well, Non-toxic, No Acute Distress - Head Exam Head Exam: ATRAUMATIC, NORMOCEPHALIC - Extremities Exam Additional comments: Left Lower extremity exam: VASC: DP/PT pulses palpable 1/4, Cap refill <3 secs x 5, Temp gradient warm to cool from proximal to distal, Periwound erythema noted, no erythema otherwise, No edema noted. NEURO: Protective sensation diminished. DERM: left lateral malleolus wound measuring 0.2 X 0.2 cm (almost healed) with 100% granular base, Periwound erythema noted, no drainage noted on the dressing, no malodor, no clinical signs of infection. Dryness and desquamation noted to the anterior ankle. MSK: Mild pain on palpation to the wound - Neurological Exam Neurological Exam: Alert, Awake, Oriented x3 - Psychiatric Exam Psychiatric exam: Normal Affect, Normal Mood Assessment and Plan - Assessment and Plan (Free Text) Assessment: 88 y/o female seen and evaluated at bedside for a stable left ankle wound Plan: Patient seen and evaluated at the bedside. Plan discussed with Dr. You Chart, labs and vitals reviewed; Afebrile, No leukocytosis Applied ammonium lactate 12% in the periwound area Wound dressed with medihoney and DSD continue Ammonium lactate 12% to the dry LLE BID. Podiatry will continue to follow up the patient while in house Patient will follow up with Dr. You upon discharge
[2018-06-24] MEDS: Multivitamin With Minerals Tab PO SCH (08:20)
[2018-06-24] MEDS: Pantoprazole 40 mg EC Tab PO SCH (08:20)
[2018-06-24] MEDS: guaiFENesin 600 mg ER Tab PO SCH ×2 (08:20→22:29)
[2018-06-24] MEDS: Ammonium Lactate 12% Cream (140 g) TOP SCH ×2 (08:22→16:12)
--- NOTE | 2018-06-24 09:06 | CP.PCM.PN ---
Subjective - Date & Time of Evaluation Date of Evaluation: 06/24/18 Time of Evaluation: 09:15 - Subjective Subjective: NO CHEST PAIN OR SOB FEELS GOOD Objective - Vital Signs/Intake and Output Vital Signs (last 24 hours): Temp Pulse Resp BP Pulse Ox 97.6 F 74 20 167/64 H 96 06/24/18 08:22 06/24/18 08:22 06/24/18 08:22 06/24/18 08:22 06/24/18 08:22 - Medications Medications: Current Medications Acetaminophen (Tylenol 325mg Tab) 650 mg PO Q6 PRN PRN Reason: Pain, moderate (4-7) Last Admin: 06/22/18 01:42 Dose: 650 mg Albuterol/Ipratropium (Duoneb 3 Mg/0.5 Mg (3 Ml) Ud) 3 ml IH Q12 [facility] Last Admin: 06/24/18 07:43 Dose: 3 ml Alendronate Sodium (Fosamax) 70 mg PO FR [facility] Last Admin: 06/19/18 15:35 Dose: 70 mg Amlodipine Besylate (Norvasc) 5 mg PO DAILY [facility] Last Admin: 06/24/18 08:21 Dose: 5 mg Aspirin (Ecotrin) 81 mg PO DAILY [facility] Last Admin: 06/24/18 08:22 Dose: 81 mg Atorvastatin Calcium (Lipitor) 10 mg PO HS [facility] Last Admin: 06/23/18 21:06 Dose: 10 mg Budesonide (Pulmicort Respules) 0.25 mg IH Q12 [facility] Last Admin: 06/24/18 07:43 Dose: 0.25 mg Carvedilol (Coreg) 3.125 mg PO Q12@0900,2100 [facility] Last Admin: 06/24/18 08:21 Dose: 3.125 mg Docusate Sodium (Colace) 100 mg PO TID [facility] Last Admin: 06/24/18 08:19 Dose: 100 mg Enalapril Maleate (Vasotec) 20 mg PO DAILY [facility] Last Admin: 06/24/18 08:20 Dose: 20 mg Ferrous Sulfate (Feosol) 325 mg PO DAILY [facility] Last Admin: 06/23/18 08:30 Dose: 325 mg Guaifenesin (Mucinex La) 600 mg PO Q12 [facility] Last Admin: 06/24/18 08:20 Dose: 600 mg Hydrocortisone (Hydrocortisone 2.5%) 1 applic TOP BID [facility] Last Admin: 06/24/18 08:22 Dose: 1 applic Ipratropium [place] (Atrovent) 0.5 mg IH RQ6 [facility] Last Admin: 06/24/18 07:43 Dose: 0.5 mg Lactic Acid (Lac-Hydrin 12% Cream (140 G)) 1 ea TOP BID [facility] Last Admin: 06/24/18 08:22 Dose: 1 applic Levalbuterol HCl (Xopenex) 0.63 mg INH RQ8 PRN PRN Reason: Wheezing Lorazepam (Ativan) 0.5 mg PO DAILY [facility] Last Admin: 06/24/18 08:19 Dose: 0.5 mg Magnesium Hydroxide (Milk Of Magnesia) 30 ml PO DAILY PRN PRN Reason: Constipation Last Admin: 06/17/18 21:36 Dose: 30 ml Metformin HCl (Glucophage) 500 mg PO BIDWM [facility] Last Admin: 06/24/18 08:20 Dose: 500 mg Montelukast Sodium (Singulair) 10 mg PO HS [facility] Last Admin: 06/23/18 21:06 Dose: 10 mg Multivitamins/Minerals (Therapeutic-M Tab) 1 tab PO DAILY [facility] Last Admin: 06/24/18 08:20 Dose: 1 tab Nystatin (Nystop Topical Powder) 1 applic TOP TID [facility] Last Admin: 06/24/18 08:22 Dose: 1 applic Pantoprazole Sodium (Protonix Ec Tab) 40 mg PO DAILY [facility] Last Admin: 06/24/18 08:20 Dose: 40 mg Sennosides (Senokot Tab) 8.6 mg PO HS [facility] Last Admin: 06/23/18 21:12 Dose: Not Given - Labs Labs: 06/21/18 11:00 06/23/18 08:41 - Respiratory Exam Respiratory Exam: Clear to Ausculation Bilateral - Cardiovascular Exam Cardiovascular Exam: REGULAR RHYTHM, +S1, +S2 - Extremities Exam Additional comments: NO LE EDEMA Assessment and Plan - Assessment and Plan (Free Text) Assessment: CAD HYPERTENSION HYPERLIPIDEMIA TYPE 2 DM ANXIETY Plan: CONTINUE CARVEDILOL, ATORVASTATIN, AMLODIPINE, ENALAPRIL, ASA AND COPD MEDICA TIONS
[2018-06-24 11:30] LABS: BLOOD UREA NITROGEN 15 mg/dl (7-17); CALCIUM 8.9 mg/dL (8.4-10.2); GFR NON-AFRICAN AMERICAN > 60
[2018-06-24] MEDS ORDERED: Tolvaptan 15 MG TAB PO SCH (12:15)
--- NOTE | 2018-06-24 12:17 | CP.PCM.PN ---
Subjective - Date & Time of Evaluation Date of Evaluation: 06/24/18 Time of Evaluation: 12:16 - Subjective Subjective: Patient awake and conscious not in acute distress Objective - Vital Signs/Intake and Output Vital Signs (last 24 hours): Temp Pulse Resp BP Pulse Ox 97.6 F 74 20 167/64 H 96 06/24/18 08:22 06/24/18 08:22 06/24/18 08:22 06/24/18 08:22 06/24/18 08:22 - Medications Medications: Current Medications Acetaminophen (Tylenol 325mg Tab) 650 mg PO Q6 PRN PRN Reason: Pain, moderate (4-7) Last Admin: 06/22/18 01:42 Dose: 650 mg Albuterol/Ipratropium (Duoneb 3 Mg/0.5 Mg (3 Ml) Ud) 3 ml IH Q12 [facility] Last Admin: 06/24/18 09:10 Dose: Not Given Alendronate Sodium (Fosamax) 70 mg PO FR [facility] Last Admin: 06/19/18 15:35 Dose: 70 mg Amlodipine Besylate (Norvasc) 5 mg PO DAILY [facility] Last Admin: 06/24/18 08:21 Dose: 5 mg Aspirin (Ecotrin) 81 mg PO DAILY [facility] Last Admin: 06/24/18 08:22 Dose: 81 mg Atorvastatin Calcium (Lipitor) 10 mg PO HS [facility] Last Admin: 06/23/18 21:06 Dose: 10 mg Budesonide (Pulmicort Respules) 0.25 mg IH Q12 [facility] Last Admin: 06/24/18 11:11 Dose: Not Given Carvedilol (Coreg) 3.125 mg PO Q12@0900,2100 [facility] Last Admin: 06/24/18 08:21 Dose: 3.125 mg Docusate Sodium (Colace) 100 mg PO TID [facility] Last Admin: 06/24/18 08:19 Dose: 100 mg Enalapril Maleate (Vasotec) 20 mg PO DAILY [facility] Last Admin: 06/24/18 08:20 Dose: 20 mg Ferrous Sulfate (Feosol) 325 mg PO DAILY [facility] Last Admin: 06/24/18 08:20 Dose: 325 mg Guaifenesin (Mucinex La) 600 mg PO Q12 [facility] Last Admin: 06/24/18 08:20 Dose: 600 mg Hydrocortisone (Hydrocortisone 2.5%) 1 applic TOP BID [facility] Last Admin: 06/24/18 08:22 Dose: 1 applic Ipratropium [place] (Atrovent) 0.5 mg IH RQ6 [facility] Last Admin: 06/24/18 07:43 Dose: 0.5 mg Lactic Acid (Lac-Hydrin 12% Cream (140 G)) 1 ea TOP BID [facility] Last Admin: 06/24/18 08:22 Dose: 1 applic Levalbuterol HCl (Xopenex) 0.63 mg INH RQ8 PRN PRN Reason: Wheezing Lorazepam (Ativan) 0.5 mg PO DAILY [facility] Last Admin: 06/24/18 08:19 Dose: 0.5 mg Magnesium Hydroxide (Milk Of Magnesia) 30 ml PO DAILY PRN PRN Reason: Constipation Last Admin: 06/17/18 21:36 Dose: 30 ml Metformin HCl (Glucophage) 500 mg PO BIDWM [facility] Last Admin: 06/24/18 08:20 Dose: 500 mg Montelukast Sodium (Singulair) 10 mg PO HS [facility] Last Admin: 06/23/18 21:06 Dose: 10 mg Multivitamins/Minerals (Therapeutic-M Tab) 1 tab PO DAILY [facility] Last Admin: 06/24/18 08:20 Dose: 1 tab Nystatin (Nystop Topical Powder) 1 applic TOP TID [facility] Last Admin: 06/24/18 08:22 Dose: 1 applic Pantoprazole Sodium (Protonix Ec Tab) 40 mg PO DAILY [facility] Last Admin: 06/24/18 08:20 Dose: 40 mg Sennosides (Senokot Tab) 8.6 mg PO HS [facility] Last Admin: 06/23/18 21:12 Dose: Not Given Tolvaptan (Samsca) 15 mg PO DAILY [facility] - Labs Labs: 06/21/18 11:00 06/24/18 11:02 - Constitutional Appears: No Acute Distress - Eye Exam Eye Exam: Conjunctival injection - ENT Exam ENT Exam: Mucous Membranes Moist - Respiratory Exam Respiratory Exam: NORMAL BREATHING PATTERN. absent: Chest Wall Tenderness - Extremities Exam Extremities Exam: absent: Calf Tenderness - Back Exam Back Exam: absent: CVA tenderness (L), CVA tenderness (R) - Neurological Exam Neurological Exam: Alert - Psychiatric Exam Psychiatric exam: Normal Affect - Skin Skin Exam: absent: Cyanosis Assessment and Plan - Assessment and Plan (Free Text) Assessment: hyponatremia secondary to SIADH copd hyperlipidemia, anemia CAD the plan Serum sodium 132 Patient seems to need Samsca 15 mg daily going forward until serum sodium stabilized
--- NOTE | 2018-06-24 16:25 | CP.PCM.PN ---
Subjective - Date & Time of Evaluation Date of Evaluation: 06/24/18 Time of Evaluation: 22:22 - Subjective Subjective: Above noted Objective - Vital Signs/Intake and Output Vital Signs (last 24 hours): Temp Pulse Resp BP Pulse Ox 97.6 F 74 20 167/64 H 96 06/24/18 08:22 06/24/18 08:22 06/24/18 08:22 06/24/18 08:22 06/24/18 08:22 - Medications Medications: Current Medications Acetaminophen (Tylenol 325mg Tab) 650 mg PO Q6 PRN PRN Reason: Pain, moderate (4-7) Last Admin: 06/22/18 01:42 Dose: 650 mg Albuterol/Ipratropium (Duoneb 3 Mg/0.5 Mg (3 Ml) Ud) 3 ml IH Q12 [facility] Last Admin: 06/24/18 09:10 Dose: Not Given Alendronate Sodium (Fosamax) 70 mg PO FR [facility] Last Admin: 06/19/18 15:35 Dose: 70 mg Amlodipine Besylate (Norvasc) 5 mg PO DAILY [facility] Last Admin: 06/24/18 08:21 Dose: 5 mg Aspirin (Ecotrin) 81 mg PO DAILY [facility] Last Admin: 06/24/18 08:22 Dose: 81 mg Atorvastatin Calcium (Lipitor) 10 mg PO HS [facility] Last Admin: 06/23/18 21:06 Dose: 10 mg Budesonide (Pulmicort Respules) 0.25 mg IH Q12 [facility] Last Admin: 06/24/18 11:11 Dose: Not Given Carvedilol (Coreg) 3.125 mg PO Q12@0900,2100 [facility] Last Admin: 06/24/18 08:21 Dose: 3.125 mg Docusate Sodium (Colace) 100 mg PO TID [facility] Last Admin: 06/24/18 16:11 Dose: 100 mg Enalapril Maleate (Vasotec) 20 mg PO DAILY [facility] Last Admin: 06/24/18 08:20 Dose: 20 mg Ferrous Sulfate (Feosol) 325 mg PO DAILY [facility] Last Admin: 06/24/18 08:20 Dose: 325 mg Guaifenesin (Mucinex La) 600 mg PO Q12 [facility] Last Admin: 06/24/18 08:20 Dose: 600 mg Hydrocortisone (Hydrocortisone 2.5%) 1 applic TOP BID [facility] Last Admin: 12/19/18 16:12 Dose: 1 applic Ipratropium [place] (Atrovent) 0.5 mg IH RQ6 [facility] Last Admin: 06/24/18 13:10 Dose: 0.5 mg Lactic Acid (Lac-Hydrin 12% Cream (140 G)) 1 ea TOP BID [facility] Last Admin: 06/24/18 16:12 Dose: 1 applic Levalbuterol HCl (Xopenex) 0.63 mg INH RQ8 PRN PRN Reason: Wheezing Lorazepam (Ativan) 0.5 mg PO DAILY [facility] Last Admin: 06/24/18 08:19 Dose: 0.5 mg Magnesium Hydroxide (Milk Of Magnesia) 30 ml PO DAILY PRN PRN Reason: Constipation Last Admin: 06/17/18 21:36 Dose: 30 ml Metformin HCl (Glucophage) 500 mg PO BIDWM [facility] Last Admin: 06/24/18 16:12 Dose: 500 mg Montelukast Sodium (Singulair) 10 mg PO HS [facility] Last Admin: 06/23/18 21:06 Dose: 10 mg Multivitamins/Minerals (Therapeutic-M Tab) 1 tab PO DAILY [facility] Last Admin: 06/24/18 08:20 Dose: 1 tab Nystatin (Nystop Topical Powder) 1 applic TOP TID [facility] Last Admin: 06/24/18 16:12 Dose: 1 applic Pantoprazole Sodium (Protonix Ec Tab) 40 mg PO DAILY [facility] Last Admin: 06/24/18 08:20 Dose: 40 mg Sennosides (Senokot Tab) 8.6 mg PO HS [facility] Last Admin: 06/23/18 21:12 Dose: Not Given - Labs Labs: 06/21/18 11:00 06/24/18 11:02 - Respiratory Exam Respiratory Exam: NORMAL BREATHING PATTERN - Cardiovascular Exam Cardiovascular Exam: REGULAR RHYTHM - GI/Abdominal Exam GI & Abdominal Exam: Normal Bowel Sounds Assessment and Plan - Assessment and Plan (Free Text) Assessment: Deconditioning TCU Physiatry 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 Nephrology Samsca 15 mg 3x week Rectal bleeding stable Hx rectal prolapse Hx hemorrhoids Surgery GI Refusing w/u S/P Acute ant wall [place] + CE CT scan CHF O2 JAYESH B-annia Nitrates ASA Cardiology Echo good LV fxn S/P Fall etiol?? 2 to above? COPD Prov Atrovent Chronic anxiety Ativan
--- NOTE | 2018-06-24 18:40 | CP.PCM.PN ---
Subjective - Date & Time of Evaluation Date of Evaluation: 06/24/18 Time of Evaluation: 18:40 - Subjective Subjective: Patient seen in the room denies sob/cp sit to stand took a couple of times but managed with CS no dizziness continue current care Objective - Vital Signs/Intake and Output Vital Signs (last 24 hours): Temp Pulse Resp BP Pulse Ox 98.0 F 77 20 134/74 96 06/24/18 16:28 06/24/18 16:28 06/24/18 16:28 06/24/18 16:28 06/24/18 16:28 - Medications Medications: Current Medications Acetaminophen (Tylenol 325mg Tab) 650 mg PO Q6 PRN PRN Reason: Pain, moderate (4-7) Last Admin: 06/22/18 01:42 Dose: 650 mg Albuterol/Ipratropium (Duoneb 3 Mg/0.5 Mg (3 Ml) Ud) 3 ml IH Q12 [facility] Last Admin: 06/24/18 09:10 Dose: Not Given Alendronate Sodium (Fosamax) 70 mg PO FR [facility] Last Admin: 06/19/18 15:35 Dose: 70 mg Amlodipine Besylate (Norvasc) 5 mg PO DAILY [facility] Last Admin: 06/24/18 08:21 Dose: 5 mg Aspirin (Ecotrin) 81 mg PO DAILY [facility] Last Admin: 06/24/18 08:22 Dose: 81 mg Atorvastatin Calcium (Lipitor) 10 mg PO HS [facility] Last Admin: 06/23/18 21:06 Dose: 10 mg Budesonide (Pulmicort Respules) 0.25 mg IH Q12 [facility] Last Admin: 06/24/18 11:11 Dose: Not Given Carvedilol (Coreg) 3.125 mg PO Q12@0900,2100 [facility] Last Admin: 06/24/18 08:21 Dose: 3.125 mg Docusate Sodium (Colace) 100 mg PO TID [facility] Last Admin: 06/24/18 16:11 Dose: 100 mg Enalapril Maleate (Vasotec) 20 mg PO DAILY [facility] Last Admin: 06/24/18 08:20 Dose: 20 mg Ferrous Sulfate (Feosol) 325 mg PO DAILY [facility] Last Admin: 06/24/18 08:20 Dose: 325 mg Guaifenesin (Mucinex La) 600 mg PO Q12 [facility] Last Admin: 06/24/18 08:20 Dose: 600 mg Hydrocortisone (Hydrocortisone 2.5%) 1 applic TOP BID [facility] Last Admin: 06/24/18 16:12 Dose: 1 applic Ipratropium [place] (Atrovent) 0.5 mg IH RQ6 [facility] Last Admin: 06/24/18 13:10 Dose: 0.5 mg Lactic Acid (Lac-Hydrin 12% Cream (140 G)) 1 ea TOP BID [facility] Last Admin: 06/24/18 16:12 Dose: 1 applic Levalbuterol HCl (Xopenex) 0.63 mg INH RQ8 PRN PRN Reason: Wheezing Lorazepam (Ativan) 0.5 mg PO DAILY [facility] Last Admin: 06/24/18 08:19 Dose: 0.5 mg Magnesium Hydroxide (Milk Of Magnesia) 30 ml PO DAILY PRN PRN Reason: Constipation Last Admin: 06/17/18 21:36 Dose: 30 ml Metformin HCl (Glucophage) 500 mg PO BIDWM [facility] Last Admin: 06/24/18 16:12 Dose: 500 mg Montelukast Sodium (Singulair) 10 mg PO HS [facility] Last Admin: 06/23/18 21:06 Dose: 10 mg Multivitamins/Minerals (Therapeutic-M Tab) 1 tab PO DAILY [facility] Last Admin: 06/24/18 08:20 Dose: 1 tab Nystatin (Nystop Topical Powder) 1 applic TOP TID [facility] Last Admin: 06/24/18 16:12 Dose: 1 applic Pantoprazole Sodium (Protonix Ec Tab) 40 mg PO DAILY [facility] Last Admin: 06/24/18 08:20 Dose: 40 mg Sennosides (Senokot Tab) 8.6 mg PO HS [facility] Last Admin: 06/23/18 21:12 Dose: Not Given - Labs Labs: 06/21/18 11:00 06/24/18 11:02
[2018-06-25] MEDS: Ipratropium 0.02% Inhal Soln (0.5 mg/2.5 ml) UD IH SCH ×4 (01:09→20:04)
[2018-06-25 07:04] LABS: BLOOD UREA NITROGEN 19 mg/dl (7-17); GFR NON-AFRICAN AMERICAN > 60
[2018-06-25] MEDS: Budesonide 0.25 mg/2 ml Inhal Susp UD IH SCH ×2 (07:46→20:04)
[2018-06-25] MEDS: Albuterol-Ipratrop 3 mg / 0.5 (3 ml) UD IH SCH ×2 (07:46→20:04)
[2018-06-25] MEDS: guaiFENesin 600 mg ER Tab PO SCH ×2 (08:51→21:36)
[2018-06-25] MEDS: Ammonium Lactate 12% Cream (140 g) TOP SCH ×2 (08:51→16:47)
[2018-06-25] MEDS: Pantoprazole 40 mg EC Tab PO SCH (08:52)
[2018-06-25] MEDS: Multivitamin With Minerals Tab PO SCH (08:52)
--- NOTE | 2018-06-25 17:05 | CP.PCM.PN ---
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 continue samsca 15 daily sodium levels stable Objective - Vital Signs/Intake and Output Vital Signs (last 24 hours): Temp Pulse Resp BP Pulse Ox 98.5 F 72 20 135/70 96 06/25/18 16:16 06/25/18 16:16 06/25/18 16:16 06/25/18 16:16 06/25/18 16:16 - Medications Medications: Current Medications Acetaminophen (Tylenol 325mg Tab) 650 mg PO Q6 PRN PRN Reason: Pain, moderate (4-7) Last Admin: 06/22/18 01:42 Dose: 650 mg Albuterol/Ipratropium (Duoneb 3 Mg/0.5 Mg (3 Ml) Ud) 3 ml IH Q12 [facility] Last Admin: 06/25/18 07:46 Dose: 3 ml Alendronate Sodium (Fosamax) 70 mg PO FR [facility] Last Admin: 06/19/18 15:35 Dose: 70 mg Amlodipine Besylate (Norvasc) 5 mg PO DAILY [facility] Last Admin: 06/25/18 08:52 Dose: 5 mg Aspirin (Ecotrin) 81 mg PO DAILY [facility] Last Admin: 06/25/18 08:51 Dose: 81 mg Atorvastatin Calcium (Lipitor) 10 mg PO HS [facility] Last Admin: 06/25/18 04:41 Dose: 10 mg Budesonide (Pulmicort Respules) 0.25 mg IH Q12 [facility] Last Admin: 06/25/18 07:46 Dose: 0.25 mg Carvedilol (Coreg) 3.125 mg PO Q12@0900,2100 [facility] Last Admin: 06/25/18 08:50 Dose: 3.125 mg Docusate Sodium (Colace) 100 mg PO TID [facility] Last Admin: 06/25/18 16:46 Dose: 100 mg Enalapril Maleate (Vasotec) 20 mg PO DAILY [facility] Last Admin: 06/25/18 09:53 Dose: 20 mg Ferrous Sulfate (Feosol) 325 mg PO DAILY [facility] Last Admin: 06/25/18 08:56 Dose: 325 mg Guaifenesin (Mucinex La) 600 mg PO Q12 [facility] Last Admin: 06/25/18 08:51 Dose: 600 mg Hydrocortisone (Hydrocortisone 2.5%) 1 applic TOP BID [facility] Last Admin: 06/25/18 16:47 Dose: 1 applic Ipratropium [place] (Atrovent) 0.5 mg IH RQ6 [facility] Last Admin: 06/25/18 13:22 Dose: 0.5 mg Lactic Acid (Lac-Hydrin 12% Cream (140 G)) 1 ea TOP BID [facility] Last Admin: 06/25/18 16:47 Dose: 1 applic Levalbuterol HCl (Xopenex) 0.63 mg INH RQ8 PRN PRN Reason: Wheezing Lorazepam (Ativan) 0.5 mg PO DAILY PRN PRN Reason: Anxiety Magnesium Hydroxide (Milk Of Magnesia) 30 ml PO DAILY PRN PRN Reason: Constipation Last Admin: 06/17/18 21:36 Dose: 30 ml Metformin HCl (Glucophage) 500 mg PO BIDWM [facility] Last Admin: 06/25/18 16:46 Dose: 500 mg Montelukast Sodium (Singulair) 10 mg PO HS [facility] Last Admin: 06/25/18 04:42 Dose: 10 mg Multivitamins/Minerals (Therapeutic-M Tab) 1 tab PO DAILY [facility] Last Admin: 06/25/18 08:52 Dose: 1 tab Nystatin (Nystop Topical Powder) 1 applic TOP TID [facility] Last Admin: 06/25/18 16:46 Dose: 1 applic Pantoprazole Sodium (Protonix Ec Tab) 40 mg PO DAILY [facility] Last Admin: 06/25/18 08:52 Dose: 40 mg Sennosides (Senokot Tab) 8.6 mg PO HS [facility] Last Admin: 06/24/18 22:29 Dose: 8.6 mg - Labs Labs: 06/21/18 11:00 06/25/18 05:30
[2018-06-25] MEDS ORDERED: Tolvaptan 15 MG TAB PO ONE (17:29)
--- NOTE | 2018-06-25 21:16 | CP.PCM.PN ---
Subjective - Date & Time of Evaluation Date of Evaluation: 06/25/18 Time of Evaluation: 22:22 - Subjective Subjective: Na+ 132 Objective - Vital Signs/Intake and Output Vital Signs (last 24 hours): Temp Pulse Resp BP Pulse Ox 98.1 F 65 20 132/61 97 06/25/18 19:40 06/25/18 19:40 06/25/18 19:40 06/25/18 19:40 06/25/18 19:40 - Medications Medications: Current Medications Acetaminophen (Tylenol 325mg Tab) 650 mg PO Q6 PRN PRN Reason: Pain, moderate (4-7) Last Admin: 06/22/18 01:42 Dose: 650 mg Albuterol/Ipratropium (Duoneb 3 Mg/0.5 Mg (3 Ml) Ud) 3 ml IH Q12 [facility] Last Admin: 06/25/18 20:04 Dose: 3 ml Alendronate Sodium (Fosamax) 70 mg PO FR [facility] Last Admin: 06/19/18 15:35 Dose: 70 mg Amlodipine Besylate (Norvasc) 5 mg PO DAILY [facility] Last Admin: 06/25/18 08:52 Dose: 5 mg Aspirin (Ecotrin) 81 mg PO DAILY [facility] Last Admin: 06/25/18 08:51 Dose: 81 mg Atorvastatin Calcium (Lipitor) 10 mg PO HS [facility] Last Admin: 06/25/18 04:41 Dose: 10 mg Budesonide (Pulmicort Respules) 0.25 mg IH Q12 [facility] Last Admin: 06/25/18 20:04 Dose: 0.25 mg Carvedilol (Coreg) 3.125 mg PO Q12@0900,2100 [facility] Last Admin: 06/25/18 08:50 Dose: 3.125 mg Docusate Sodium (Colace) 100 mg PO TID [facility] Last Admin: 06/25/18 16:46 Dose: 100 mg Enalapril Maleate (Vasotec) 20 mg PO DAILY [facility] Last Admin: 06/25/18 09:53 Dose: 20 mg Ferrous Sulfate (Feosol) 325 mg PO DAILY [facility] Last Admin: 06/25/18 08:56 Dose: 325 mg Guaifenesin (Mucinex La) 600 mg PO Q12 [facility] Last Admin: 06/25/18 08:51 Dose: 600 mg Hydrocortisone (Hydrocortisone 2.5%) 1 applic TOP BID [facility] Last Admin: 06/25/18 16:47 Dose: 1 applic Ipratropium [place] (Atrovent) 0.5 mg IH RQ6 [facility] Last Admin: 06/25/18 20:04 Dose: 0.5 mg Lactic Acid (Lac-Hydrin 12% Cream (140 G)) 1 ea TOP BID [facility] Last Admin: 06/25/18 16:47 Dose: 1 applic Levalbuterol HCl (Xopenex) 0.63 mg INH RQ8 PRN PRN Reason: Wheezing Lorazepam (Ativan) 0.5 mg PO DAILY PRN PRN Reason: Anxiety Magnesium Hydroxide (Milk Of Magnesia) 30 ml PO DAILY PRN PRN Reason: Constipation Last Admin: 06/17/18 21:36 Dose: 30 ml Metformin HCl (Glucophage) 500 mg PO BIDWM [facility] Last Admin: 06/25/18 16:46 Dose: 500 mg Montelukast Sodium (Singulair) 10 mg PO HS [facility] Last Admin: 06/25/18 04:42 Dose: 10 mg Multivitamins/Minerals (Therapeutic-M Tab) 1 tab PO DAILY [facility] Last Admin: 06/25/18 08:52 Dose: 1 tab Nystatin (Nystop Topical Powder) 1 applic TOP TID [facility] Last Admin: 06/25/18 16:46 Dose: 1 applic Pantoprazole Sodium (Protonix Ec Tab) 40 mg PO DAILY [facility] Last Admin: 06/25/18 08:52 Dose: 40 mg Sennosides (Senokot Tab) 8.6 mg PO HS [facility] Last Admin: 06/24/18 22:29 Dose: 8.6 mg - Labs Labs: 06/21/18 11:00 06/25/18 05:30 - Respiratory Exam Respiratory Exam: NORMAL BREATHING PATTERN - Cardiovascular Exam Cardiovascular Exam: REGULAR RHYTHM - GI/Abdominal Exam GI & Abdominal Exam: Normal Bowel Sounds Assessment and Plan - Assessment and Plan (Free Text) Assessment: Deconditioning TCU Physiatry 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 Nephrology Samsca 15 mg 3x week Rectal bleeding stable Hx rectal prolapse Hx hemorrhoids Surgery GI Refusing w/u S/P Acute ant wall [place] + CE CT scan CHF O2 JAYESH B-annia Nitrates ASA Cardiology Echo good LV fxn S/P Fall etiol?? 2 to above? COPD Prov Atrovent Chronic anxiety Ativan
[2018-06-26] MEDS: Ipratropium 0.02% Inhal Soln (0.5 mg/2.5 ml) UD IH SCH ×2 (01:07→20:01)
[2018-06-26 07:04] LABS: BLOOD UREA NITROGEN 19 mg/dl (7-17); CALCIUM 8.8 mg/dL (8.4-10.2); GFR NON-AFRICAN AMERICAN > 60
--- NOTE | 2018-06-26 07:39 | CP.PCM.PN ---
Subjective - Date & Time of Evaluation Date of Evaluation: 06/26/18 Time of Evaluation: 07:39 - Subjective Subjective: Podiatry Progress note for Dr. You, 88 y/o female seen and evaluated in TCU at bedside for left ankle wound. Patient states she didn't sleep last night and she feels tired. Patient denies any pain at her ulcer site. Patient denies any other pedal complaints at this time. Patient denies any overnight F/N/V/SOB/CP. Objective - Vital Signs/Intake and Output Vital Signs (last 24 hours): Temp Pulse Resp BP Pulse Ox 98.1 F 65 20 132/61 97 06/25/18 19:40 06/25/18 21:35 06/25/18 19:40 06/25/18 21:35 06/25/18 19:40 - Medications Medications: Current Medications Acetaminophen (Tylenol 325mg Tab) 650 mg PO Q6 PRN PRN Reason: Pain, moderate (4-7) Last Admin: 06/22/18 01:42 Dose: 650 mg Albuterol/Ipratropium (Duoneb 3 Mg/0.5 Mg (3 Ml) Ud) 3 ml IH Q12 [facility] Last Admin: 06/25/18 20:04 Dose: 3 ml Alendronate Sodium (Fosamax) 70 mg PO FR [facility] Last Admin: 06/19/18 15:35 Dose: 70 mg Amlodipine Besylate (Norvasc) 5 mg PO DAILY [facility] Last Admin: 06/25/18 08:52 Dose: 5 mg Aspirin (Ecotrin) 81 mg PO DAILY [facility] Last Admin: 06/25/18 08:51 Dose: 81 mg Atorvastatin Calcium (Lipitor) 10 mg PO HS [facility] Last Admin: 06/25/18 21:36 Dose: 10 mg Budesonide (Pulmicort Respules) 0.25 mg IH Q12 [facility] Last Admin: 06/25/18 20:04 Dose: 0.25 mg Carvedilol (Coreg) 3.125 mg PO Q12@0900,2100 [facility] Last Admin: 06/25/18 21:35 Dose: 3.125 mg Docusate Sodium (Colace) 100 mg PO TID [facility] Last Admin: 06/25/18 16:46 Dose: 100 mg Enalapril Maleate (Vasotec) 20 mg PO DAILY [facility] Last Admin: 06/25/18 09:53 Dose: 20 mg Ferrous Sulfate (Feosol) 325 mg PO DAILY [facility] Last Admin: 06/25/18 08:56 Dose: 325 mg Guaifenesin (Mucinex La) 600 mg PO Q12 [facility] Last Admin: 06/25/18 21:36 Dose: 600 mg Hydrocortisone (Hydrocortisone 2.5%) 1 applic TOP BID [facility] Last Admin: 06/25/18 16:47 Dose: 1 applic Ipratropium [place] (Atrovent) 0.5 mg IH RQ6 [facility] Last Admin: 06/26/18 01:07 Dose: 0.5 mg Lactic Acid (Lac-Hydrin 12% Cream (140 G)) 1 ea TOP BID [facility] Last Admin: 06/25/18 16:47 Dose: 1 applic Levalbuterol HCl (Xopenex) 0.63 mg INH RQ8 PRN PRN Reason: Wheezing Lorazepam (Ativan) 0.5 mg PO DAILY PRN PRN Reason: Anxiety Magnesium Hydroxide (Milk Of Magnesia) 30 ml PO DAILY PRN PRN Reason: Constipation Last Admin: 06/17/18 21:36 Dose: 30 ml Metformin HCl (Glucophage) 500 mg PO BIDWM [facility] Last Admin: 06/25/18 16:46 Dose: 500 mg Montelukast Sodium (Singulair) 10 mg PO HS [facility] Last Admin: 06/25/18 21:36 Dose: 10 mg Multivitamins/Minerals (Therapeutic-M Tab) 1 tab PO DAILY [facility] Last Admin: 06/25/18 08:52 Dose: 1 tab Nystatin (Nystop Topical Powder) 1 applic TOP TID [facility] Last Admin: 06/25/18 16:46 Dose: 1 applic Pantoprazole Sodium (Protonix Ec Tab) 40 mg PO DAILY [facility] Last Admin: 06/25/18 08:52 Dose: 40 mg Sennosides (Senokot Tab) 8.6 mg PO HS [facility] Last Admin: 06/25/18 21:36 Dose: 8.6 mg - Labs Labs: 06/21/18 11:00 06/26/18 06:00 - Constitutional Appears: Well, Non-toxic, No Acute Distress - Head Exam Head Exam: ATRAUMATIC, NORMOCEPHALIC - Extremities Exam Additional comments: Left Lower extremity exam: VASC: DP/PT pulses palpable 1/4, Cap refill <3 secs x 5, Temp gradient warm to cool from proximal to distal, Periwound erythema noted, no erythema otherwise, No edema noted. NEURO: Protective sensation diminished. DERM: left lateral malleolus wound is almost healed completely leavbing an area of Periwound erythema, no drainage noted on the dressing, no malodor, no clinical signs of infection. MSK: Mild pain on palpation to the wound - Neurological Exam Neurological Exam: Alert, Awake, Oriented x3 - Psychiatric Exam Psychiatric exam: Normal Affect, Normal Mood Assessment and Plan - Assessment and Plan (Free Text) Assessment: 88 y/o female seen and evaluated at bedside for a stable left ankle wound Plan: Patient seen and evaluated at the bedside. Plan discussed with Dr. You Chart, labs and vitals reviewed; Afebrile, No leukocytosis Applied ammonium lactate 12% in the periwound area Wound dressed with medihoney and DSD continue Ammonium lactate 12% to the dry LLE BID. Podiatry will continue to follow up the patient while in house Patient will follow up with Dr. You upon discharge
[2018-06-26] MEDS: Budesonide 0.25 mg/2 ml Inhal Susp UD IH SCH ×2 (07:52→20:01)
[2018-06-26] MEDS: Albuterol-Ipratrop 3 mg / 0.5 (3 ml) UD IH SCH ×2 (07:53→20:01)
[2018-06-26] MEDS: guaiFENesin 600 mg ER Tab PO SCH ×2 (08:54→21:24)
[2018-06-26] MEDS: Pantoprazole 40 mg EC Tab PO SCH (08:54)
[2018-06-26] MEDS: Multivitamin With Minerals Tab PO SCH (08:55)
[2018-06-26] MEDS: Ammonium Lactate 12% Cream (140 g) TOP SCH ×2 (09:00→17:01)
--- NOTE | 2018-06-26 11:24 | CP.PCM.PN ---
Subjective - Date & Time of Evaluation Date of Evaluation: 06/26/18 Time of Evaluation: 10:00 - Subjective Subjective: NO COMPLAINTS OF CHEST PAIN OR SOB CAD HYPERTENSION COPD Objective - Vital Signs/Intake and Output Vital Signs (last 24 hours): Temp Pulse Resp BP Pulse Ox 97.3 F L 73 20 177/78 H 97 06/26/18 10:23 06/26/18 10:23 06/26/18 10:23 06/26/18 10:23 06/26/18 10:23 - Medications Medications: Current Medications Acetaminophen (Tylenol 325mg Tab) 650 mg PO Q6 PRN PRN Reason: Pain, moderate (4-7) Last Admin: 06/22/18 01:42 Dose: 650 mg Albuterol/Ipratropium (Duoneb 3 Mg/0.5 Mg (3 Ml) Ud) 3 ml IH Q12 [facility] Last Admin: 06/26/18 07:53 Dose: 3 ml Alendronate Sodium (Fosamax) 70 mg PO FR [facility] Last Admin: 06/19/18 15:35 Dose: 70 mg Amlodipine Besylate (Norvasc) 5 mg PO DAILY [facility] Last Admin: 06/26/18 08:54 Dose: 5 mg Aspirin (Ecotrin) 81 mg PO DAILY [facility] Last Admin: 06/26/18 08:57 Dose: 81 mg Atorvastatin Calcium (Lipitor) 10 mg PO HS [facility] Last Admin: 06/25/18 21:36 Dose: 10 mg Budesonide (Pulmicort Respules) 0.25 mg IH Q12 [facility] Last Admin: 06/26/18 07:52 Dose: 0.25 mg Carvedilol (Coreg) 3.125 mg PO Q12@0900,2100 [facility] Last Admin: 06/26/18 08:54 Dose: 3.125 mg Docusate Sodium (Colace) 100 mg PO TID [facility] Last Admin: 06/26/18 08:53 Dose: 100 mg Enalapril Maleate (Vasotec) 20 mg PO DAILY [facility] Last Admin: 06/26/18 08:55 Dose: 20 mg Ferrous Sulfate (Feosol) 325 mg PO DAILY [facility] Last Admin: 06/26/18 08:59 Dose: 325 mg Guaifenesin (Mucinex La) 600 mg PO Q12 [facility] Last Admin: 06/26/18 08:54 Dose: 600 mg Hydrocortisone (Hydrocortisone 2.5%) 1 applic TOP BID [facility] Last Admin: 06/26/18 08:54 Dose: 1 applic Ipratropium [place] (Atrovent) 0.5 mg IH RQ6 [facility] Last Admin: 06/26/18 01:07 Dose: 0.5 mg Lactic Acid (Lac-Hydrin 12% Cream (140 G)) 1 ea TOP BID [facility] Last Admin: 06/26/18 09:00 Dose: 1 applic Levalbuterol HCl (Xopenex) 0.63 mg INH RQ8 PRN PRN Reason: Wheezing Lorazepam (Ativan) 0.5 mg PO DAILY PRN PRN Reason: Anxiety Magnesium Hydroxide (Milk Of Magnesia) 30 ml PO DAILY PRN PRN Reason: Constipation Last Admin: 06/17/18 21:36 Dose: 30 ml Metformin HCl (Glucophage) 500 mg PO BIDWM [facility] Last Admin: 06/26/18 08:56 Dose: 500 mg Montelukast Sodium (Singulair) 10 mg PO HS [facility] Last Admin: 06/25/18 21:36 Dose: 10 mg Multivitamins/Minerals (Therapeutic-M Tab) 1 tab PO DAILY [facility] Last Admin: 06/26/18 08:55 Dose: 1 tab Nystatin (Nystop Topical Powder) 1 applic TOP TID [facility] Last Admin: 06/26/18 08:55 Dose: 1 applic Pantoprazole Sodium (Protonix Ec Tab) 40 mg PO DAILY [facility] Last Admin: 06/26/18 08:54 Dose: 40 mg Sennosides (Senokot Tab) 8.6 mg PO HS [facility] Last Admin: 06/25/18 21:36 Dose: 8.6 mg - Labs Labs: 06/21/18 11:00 06/26/18 06:00 - Additional Findings Additional findings: BP ELEVATED WHEN SHE IS ANXIOUS BP TAKEN BY ME AND IT WAS 130/75 Assessment and Plan - Assessment and Plan (Free Text) Assessment: CAD-STABLE CAD HYPERTENSION HEMORRHOIDS WITH RECTAL BLEEDING ON ADMISSION ANXIETY Plan: CONTINUE CARVEDILOL, ASPIRIN, ENALAPRIL, AMLODIPINE, ALPRAZOLAM AND COPD MEDS FOR DISCHARGE IN AM IF STABLE
--- NOTE | 2018-06-26 15:22 | CP.PCM.PN ---
Subjective - Date & Time of Evaluation Date of Evaluation: 06/26/18 Time of Evaluation: 15:21 - Subjective Subjective: Patient is stable awake and conscious not in acute distress. Vital signs noted to be stable Objective - Vital Signs/Intake and Output Vital Signs (last 24 hours): Temp Pulse Resp BP Pulse Ox 97.3 F L 73 20 177/78 H 97 06/26/18 10:23 06/26/18 10:23 06/26/18 10:23 06/26/18 10:23 06/26/18 10:23 - Medications Medications: Current Medications Acetaminophen (Tylenol 325mg Tab) 650 mg PO Q6 PRN PRN Reason: Pain, moderate (4-7) Last Admin: 06/22/18 01:42 Dose: 650 mg Albuterol/Ipratropium (Duoneb 3 Mg/0.5 Mg (3 Ml) Ud) 3 ml IH Q12 [facility] Last Admin: 06/26/18 07:53 Dose: 3 ml Alendronate Sodium (Fosamax) 70 mg PO FR [facility] Last Admin: 06/19/18 15:35 Dose: 70 mg Amlodipine Besylate (Norvasc) 5 mg PO DAILY [facility] Last Admin: 06/26/18 08:54 Dose: 5 mg Aspirin (Ecotrin) 81 mg PO DAILY [facility] Last Admin: 06/26/18 08:57 Dose: 81 mg Atorvastatin Calcium (Lipitor) 10 mg PO HS [facility] Last Admin: 06/25/18 21:36 Dose: 10 mg Budesonide (Pulmicort Respules) 0.25 mg IH Q12 [facility] Last Admin: 06/26/18 07:52 Dose: 0.25 mg Carvedilol (Coreg) 3.125 mg PO Q12@0900,2100 [facility] Last Admin: 06/26/18 08:54 Dose: 3.125 mg Docusate Sodium (Colace) 100 mg PO TID [facility] Last Admin: 06/26/18 12:55 Dose: 100 mg Enalapril Maleate (Vasotec) 20 mg PO DAILY [facility] Last Admin: 06/26/18 08:55 Dose: 20 mg Ferrous Sulfate (Feosol) 325 mg PO DAILY [facility] Last Admin: 06/26/18 08:59 Dose: 325 mg Guaifenesin (Mucinex La) 600 mg PO Q12 [facility] Last Admin: 06/26/18 08:54 Dose: 600 mg Hydrocortisone (Hydrocortisone 2.5%) 1 applic TOP BID [facility] Last Admin: 06/26/18 08:54 Dose: 1 applic Ipratropium [place] (Atrovent) 0.5 mg IH RQ6 [facility] Last Admin: 06/26/18 01:07 Dose: 0.5 mg Lactic Acid (Lac-Hydrin 12% Cream (140 G)) 1 ea TOP BID [facility] Last Admin: 06/26/18 09:00 Dose: 1 applic Levalbuterol HCl (Xopenex) 0.63 mg INH RQ8 PRN PRN Reason: Wheezing Lorazepam (Ativan) 0.5 mg PO DAILY PRN PRN Reason: Anxiety Magnesium Hydroxide (Milk Of Magnesia) 30 ml PO DAILY PRN PRN Reason: Constipation Last Admin: 06/17/18 21:36 Dose: 30 ml Metformin HCl (Glucophage) 500 mg PO BIDWM [facility] Last Admin: 06/26/18 08:56 Dose: 500 mg Montelukast Sodium (Singulair) 10 mg PO [facility] Last Admin: 06/25/18 21:36 Dose: 10 mg Multivitamins/Minerals (Therapeutic-M Tab) 1 tab PO DAILY [facility] Last Admin: 06/26/18 08:55 Dose: 1 tab Nystatin (Nystop Topical Powder) 1 applic TOP TID [facility] Last Admin: 06/26/18 12:55 Dose: 1 applic Pantoprazole Sodium (Protonix Ec Tab) 40 mg PO DAILY [facility] Last Admin: 06/26/18 08:54 Dose: 40 mg Sennosides (Senokot Tab) 8.6 mg PO [facility] Last Admin: 06/25/18 21:36 Dose: 8.6 mg - Labs Labs: 06/21/18 11:00 06/26/18 06:00 - Constitutional Appears: No Acute Distress - Eye Exam Eye Exam: Conjunctival injection - ENT Exam ENT Exam: Mucous Membranes Moist - Neck Exam Neck Exam: absent: Lymphadenopathy - Respiratory Exam Respiratory Exam: NORMAL BREATHING PATTERN. absent: Chest Wall Tenderness - GI/Abdominal Exam GI & Abdominal Exam: Soft, Normal Bowel Sounds - Extremities Exam Extremities Exam: absent: Calf Tenderness - Back Exam Back Exam: absent: CVA tenderness (L), CVA tenderness (R) - Neurological Exam Neurological Exam: Alert - Psychiatric Exam Psychiatric exam: Normal Affect - Skin Skin Exam: absent: Cyanosis Assessment and Plan - Assessment and Plan (Free Text) Assessment: hyponatremia secondary to SIADH copd hyperlipidemia, anemia CAD the plan Serum sodium 133 Patient seems to need Samsca 15 mg daily going forward until serum sodium stabilized
[2018-06-26] MEDS ORDERED: Tolvaptan 15 MG TAB PO ONE (16:00)
--- NOTE | 2018-06-26 16:29 | CP.PCM.PN ---
Subjective - Date & Time of Evaluation Date of Evaluation: 06/26/18 Time of Evaluation: 22:22 - Subjective Subjective: Above noted Objective - Vital Signs/Intake and Output Vital Signs (last 24 hours): Temp Pulse Resp BP Pulse Ox 97.3 F L 73 20 177/78 H 97 06/26/18 10:23 06/26/18 10:23 06/26/18 10:23 06/26/18 10:23 06/26/18 10:23 - Medications Medications: Current Medications Acetaminophen (Tylenol 325mg Tab) 650 mg PO Q6 PRN PRN Reason: Pain, moderate (4-7) Last Admin: 06/22/18 01:42 Dose: 650 mg Albuterol/Ipratropium (Duoneb 3 Mg/0.5 Mg (3 Ml) Ud) 3 ml IH Q12 [facility] Last Admin: 06/26/18 07:53 Dose: 3 ml Alendronate Sodium (Fosamax) 70 mg PO FR [facility] Last Admin: 06/19/18 15:35 Dose: 70 mg Amlodipine Besylate (Norvasc) 5 mg PO DAILY [facility] Last Admin: 06/26/18 08:54 Dose: 5 mg Aspirin (Ecotrin) 81 mg PO DAILY [facility] Last Admin: 06/26/18 08:57 Dose: 81 mg Atorvastatin Calcium (Lipitor) 10 mg PO HS [facility] Last Admin: 06/25/18 21:36 Dose: 10 mg Budesonide (Pulmicort Respules) 0.25 mg IH Q12 [facility] Last Admin: 06/26/18 07:52 Dose: 0.25 mg Carvedilol (Coreg) 3.125 mg PO Q12@0900,2100 [facility] Last Admin: 06/26/18 08:54 Dose: 3.125 mg Docusate Sodium (Colace) 100 mg PO TID [facility] Last Admin: 06/26/18 12:55 Dose: 100 mg Enalapril Maleate (Vasotec) 20 mg PO DAILY [facility] Last Admin: 06/26/18 08:55 Dose: 20 mg Ferrous Sulfate (Feosol) 325 mg PO DAILY [facility] Last Admin: 06/26/18 08:59 Dose: 325 mg Guaifenesin (Mucinex La) 600 mg PO Q12 [facility] Last Admin: 06/26/18 08:54 Dose: 600 mg Hydrocortisone (Hydrocortisone 2.5%) 1 applic TOP BID [facility] Last Admin: 06/26/18 08:54 Dose: 1 applic Ipratropium [place] (Atrovent) 0.5 mg IH RQ6 [facility] Last Admin: 06/26/18 01:07 Dose: 0.5 mg Lactic Acid (Lac-Hydrin 12% Cream (140 G)) 1 ea TOP BID [facility] Last Admin: 06/26/18 09:00 Dose: 1 applic Levalbuterol HCl (Xopenex) 0.63 mg INH RQ8 PRN PRN Reason: Wheezing Lorazepam (Ativan) 0.5 mg PO DAILY PRN PRN Reason: Anxiety Magnesium Hydroxide (Milk Of Magnesia) 30 ml PO DAILY PRN PRN Reason: Constipation Last Admin: 06/17/18 21:36 Dose: 30 ml Metformin HCl (Glucophage) 500 mg PO BIDWM [facility] Last Admin: 06/26/18 08:56 Dose: 500 mg Montelukast Sodium (Singulair) 10 mg PO HS [facility] Last Admin: 06/25/18 21:36 Dose: 10 mg Multivitamins/Minerals (Therapeutic-M Tab) 1 tab PO DAILY [facility] Last Admin: 06/26/18 08:55 Dose: 1 tab Nystatin (Nystop Topical Powder) 1 applic TOP TID [facility] Last Admin: 06/26/18 12:55 Dose: 1 applic Pantoprazole Sodium (Protonix Ec Tab) 40 mg PO DAILY [facility] Last Admin: 06/26/18 08:54 Dose: 40 mg Sennosides (Senokot Tab) 8.6 mg PO HS [facility] Last Admin: 06/25/18 21:36 Dose: 8.6 mg - Labs Labs: 06/21/18 11:00 06/26/18 06:00 - Respiratory Exam Respiratory Exam: NORMAL BREATHING PATTERN - Cardiovascular Exam Cardiovascular Exam: REGULAR RHYTHM - GI/Abdominal Exam GI & Abdominal Exam: Normal Bowel Sounds Assessment and Plan - Assessment and Plan (Free Text) Assessment: Deconditioning TCU Physiatry 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 Nephrology Samsca 15 mg daily Rectal bleeding stable Hx rectal prolapse Hx hemorrhoids Surgery GI Refusing w/u S/P Acute ant wall MT + CE CT scan CHF O2 JAYESH B-[place] Nitrates ASA Cardiology Echo good LV fxn S/P Fall etiol?? 2 to above? COPD Prov Atrovent Chronic anxiety Ativan
[2018-06-26] MEDS: ALENDRONATE 70 MG TAB PO SCH (17:04)
[2018-06-27] MEDS: Ipratropium 0.02% Inhal Soln (0.5 mg/2.5 ml) UD IH SCH ×3 (01:02→13:20)
[2018-06-27 07:31] LABS: BLOOD UREA NITROGEN 15 mg/dl (7-17); CALCIUM 8.7 mg/dL (8.4-10.2); GFR NON-AFRICAN AMERICAN > 60
[2018-06-27] MEDS: Multivitamin With Minerals Tab PO SCH (08:17)
[2018-06-27] MEDS: Pantoprazole 40 mg EC Tab PO SCH (08:17)
[2018-06-27] MEDS: Ammonium Lactate 12% Cream (140 g) TOP SCH (08:19)
[2018-06-27 08:20] VITALS: BP 154/74; PULSE 69
[2018-06-27] MEDS ORDERED: Tolvaptan 15 MG TAB PO ONE (08:20)
[2018-06-27] MEDS: Budesonide 0.25 mg/2 ml Inhal Susp UD IH SCH (08:29)
[2018-06-27] MEDS: Albuterol-Ipratrop 3 mg / 0.5 (3 ml) UD IH SCH (08:29)
[2018-06-27] MEDS: guaiFENesin 600 mg ER Tab PO SCH (10:28)
[2018-06-27 11:24] VITALS: RESP 18; TEMP 97.8; O2SAT 97
--- NOTE | 2018-06-27 13:16 | CP.PCM.PN ---
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 Hypertension control with meds as ordered. Maintain hemodynamics stable. Avoid hypotension. Monitor Input/Output, daily weights and serum Na continue with samsca 15 mg daily Dose meds/antibiotics for GFR>60. Glycemic control Further work up for as per primary team Thanks for allowing me to participate in care of your patient. Will follow patient with you. Please call if any Qs Dr Alvaro Chandler Office: [phone] Subjective: Noted events overnight. Patients feels okay. Denies chest pain, palpitation, shortness of breath, leg swelling. All other negative Physical Examination: General Appearance: Comfortable, in no acute respiratory distress, co-operative . Vitals reviewed and noted as below Head; Atraumatic, normocephalic ENT: no ulcers no thrush. Tongue is midline. Oropharynx: no rash or ulcers. EYES: Pupils are equal, round and reactive to light accommodation. Eye muscles and extraocular movement intact. Sclera is anicteric. Neck; supple no lymphadenopathy, no thyromegaly or bruit Lungs: Normal respiratory rate/effort. Breath sounds bilateral equal and clear Heart: Normal rate. s1s2 normal. No rub or gallop. Extremities: no edema. No varicose veins Neurological: Patient is alert, awake and oriented to person, place and time. No focal deficit. Strength bilateral appropriate and equal Skin: Warm and dry. Normal turgor. No rash. Palpitation: Normal elasticity for age Abdomen: Abdomen is soft. Bowel sounds +. There is no abdominal tenderness, no guarding/rigidity no organomegaly Psych: normal insight and normal affect/mood MSK: no joint tenderness or swelling. Digits and nails normal, no deformity : kidney or bladder not palpable Labs/imaging reviewed. Past medical history, past surgical history, family history, social history, allergy reviewed and noted as below Family hx: no hx of CKD. Rest non-contributory Objective - Vital Signs/Intake and Output Vital Signs (last 24 hours): Temp Pulse Resp BP Pulse Ox 97.8 F 69 18 154/74 H 97 06/27/18 08:00 06/27/18 08:18 06/27/18 08:00 06/27/18 08:18 06/27/18 08:00 - Medications Medications: Current Medications Acetaminophen (Tylenol 325mg Tab) 650 mg PO Q6 PRN PRN Reason: Pain, moderate (4-7) Last Admin: 06/22/18 01:42 Dose: 650 mg Albuterol/Ipratropium (Duoneb 3 Mg/0.5 Mg (3 Ml) Ud) 3 ml IH Q12 [facility] Last Admin: 06/27/18 08:29 Dose: 3 ml Alendronate Sodium (Fosamax) 70 mg PO FR [facility] Last Admin: 06/26/18 17:04 Dose: 70 mg Amlodipine Besylate (Norvasc) 5 mg PO DAILY [facility] Last Admin: 06/27/18 08:18 Dose: 5 mg Aspirin (Ecotrin) 81 mg PO DAILY [facility] Last Admin: 06/27/18 08:18 Dose: 81 mg Atorvastatin Calcium (Lipitor) 10 mg PO HS [facility] Last Admin: 06/26/18 21:24 Dose: 10 mg Budesonide (Pulmicort Respules) 0.25 mg IH Q12 [facility] Last Admin: 06/27/18 08:29 Dose: 0.25 mg Carvedilol (Coreg) 3.125 mg PO Q12@0900,2100 [facility] Last Admin: 06/27/18 08:18 Dose: 3.125 mg Clopidogrel Bisulfate (Plavix) 75 mg PO DAILY [facility] Docusate Sodium (Colace) 100 mg PO TID [facility] Last Admin: 06/27/18 12:34 Dose: Not Given Enalapril Maleate (Vasotec) 20 mg PO DAILY [facility] Last Admin: 06/27/18 08:18 Dose: 20 mg Ferrous Sulfate (Feosol) 325 mg PO DAILY [facility] Last Admin: 06/27/18 08:19 Dose: 325 mg Guaifenesin (Mucinex La) 600 mg PO Q12 [facility] Last Admin: 06/27/18 10:28 Dose: 600 mg Hydrocortisone (Hydrocortisone 2.5%) 1 applic TOP BID [facility] Last Admin: 06/27/18 08:19 Dose: 1 applic Ipratropium [place] (Atrovent) 0.5 mg IH RQ6 [facility] Last Admin: 06/27/18 08:29 Dose: 0.5 mg Lactic Acid (Lac-Hydrin 12% Cream (140 G)) 1 ea TOP BID [facility] Last Admin: 06/27/18 08:19 Dose: 1 applic Levalbuterol HCl (Xopenex) 0.63 mg INH RQ8 PRN PRN Reason: Wheezing Lorazepam (Ativan) 0.5 mg PO DAILY PRN PRN Reason: Anxiety Magnesium Hydroxide (Milk Of Magnesia) 30 ml PO DAILY PRN PRN Reason: Constipation Last Admin: 06/17/18 21:36 Dose: 30 ml Metformin HCl (Glucophage) 500 mg PO BIDWM [facility] Last Admin: 06/27/18 08:19 Dose: 500 mg Montelukast Sodium (Singulair) 10 mg PO HS [facility] Last Admin: 06/26/18 21:24 Dose: 10 mg Multivitamins/Minerals (Therapeutic-M Tab) 1 tab PO DAILY [facility] Last Admin: 06/27/18 08:17 Dose: 1 tab Nystatin (Nystop Topical Powder) 1 applic TOP TID [facility] Last Admin: 06/27/18 12:43 Dose: 1 applic Pantoprazole Sodium (Protonix Ec Tab) 40 mg PO DAILY [facility] Last Admin: 06/27/18 08:17 Dose: 40 mg Sennosides (Senokot Tab) 8.6 mg PO HS [facility] Last Admin: 06/26/18 21:24 Dose: 8.6 mg Tolvaptan (Samsca) 15 mg PO DAILY [facility] - Labs Labs: 06/21/18 11:00 06/27/18 05:35
--- NOTE | 2018-06-27 23:06 | CP.PCM.PN ---
Subjective - Date & Time of Evaluation Date of Evaluation: 06/27/18 Time of Evaluation: 22:22 - Subjective Subjective: Above noted Objective - Vital Signs/Intake and Output Vital Signs (last 24 hours): Temp Pulse Resp BP Pulse Ox 97.8 F 69 18 154/74 H 97 06/27/18 08:00 06/27/18 08:18 06/27/18 08:00 06/27/18 08:18 06/27/18 08:00 - Labs Labs: 06/21/18 11:00 06/27/18 05:35 - Respiratory Exam Respiratory Exam: NORMAL BREATHING PATTERN Assessment and Plan - Assessment and Plan (Free Text) Assessment: Deconditioning TCU Physiatry 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 Nephrology Samsca 15 mg daily Rectal bleeding stable Hx rectal prolapse Hx hemorrhoids Surgery GI Refusing w/u S/P Acute ant wall OK + CE CT scan CHF O2 JAYESH B-anina Nitrates ASA Cardiology Echo good LV fxn S/P Fall etiol?? 2 to above? COPD Prov Atrovent Chronic anxiety Ativan
[2018-06-28] MEDS ORDERED: Tolvaptan 15 MG TAB PO SCH (09:00)
== END 2018-06-27 15:20 | disposition home health service (06) | DRG 645 ==
LOC: H.TCU 15:25
PROVIDERS: ADMIT Family Medicine Geriatric Medicine; ATTEND Family Medicine Geriatric Medicine
PROC: F07Z9FZ Gait Training/Functional Ambulation Treatment using Assistive, Adaptive, Supportive or Protective Equipment (ICD-10-PCS; principal; 2018-06-16)
PROC: F08Z4FZ Home Management Treatment using Assistive, Adaptive, Supportive or Protective Equipment (ICD-10-PCS; 2018-06-16)
PROC: F07M6FZ Therapeutic Exercise Treatment of Musculoskeletal System - Whole Body using Assistive, Adaptive, Supportive or Protective Equipment (ICD-10-PCS; 2018-06-17)
DX: E22.2 Syndrome of inappropriate secretion of antidiuretic hormone (principal); K64.9 Unspecified hemorrhoids; J44.9 Chronic obstructive pulmonary disease, unspecified; I10 Essential (primary) hypertension; K59.00 Constipation, unspecified; L89.522 Pressure ulcer of left ankle, stage 2; I25.10 Atherosclerotic heart disease of native coronary artery without angina pectoris; E11.9 Type 2 diabetes mellitus without complications; E78.5 Hyperlipidemia, unspecified; D64.9 Anemia, unspecified; F41.8 Other specified anxiety disorders; I25.2 Old myocardial infarction; Z87.01 Personal history of pneumonia (recurrent); Z91.81 History of falling; Z79.84 Long term (current) use of oral hypoglycemic drugs; Z87.891 Personal history of nicotine dependence

== ENCOUNTER 2018-08-13 18:23 | Inpatient (IN) | payer MEDICARE, MEDICAID ==
[2018-08-13] MEDS ORDERED: Albuterol-Ipratrop 3 mg / 0.5 (3 ml) UD INH STA (20:17)
[2018-08-13] MEDS ORDERED: Magnesium Sulfate 2 gm/50 ml 2 GM/50 ML BAG IVPB STA (20:18)
[2018-08-13] MEDS ORDERED: Magnesium Sulfate 2 gm/50 ml 2 GM/50 ML BAG ONE (20:42)
[2018-08-13] MEDS ORDERED: Albuterol-Ipratrop 3 mg / 0.5 (3 ml) UD ONE (20:42)
[2018-08-13 20:58] LABS: BASO # 0.1 K/uL (0.0-0.2); BASO % 0.5 % (0.0-2.0); EOS % 0.4 % (0.0-4.0); HEMOGLOBIN 9.4 g/dL (12.0-16.0); LYMPH % 9.3 % (20.0-40.0); MEAN CORPUSCULAR HEMOGLOBIN 31.9 pg (27.0-31.0); MEAN CORPUSCULAR HGB CONC 32.2 g/dL (33.0-37.0); MEAN PLATELET VOLUME 8.2 fl (7.2-11.7); MONO # 0.7 K/uL (0.0-0.8); MONO % 6.5 % (0.0-10.0); NEUT # 9.4 K/uL (1.8-7.0); NEUT % 83.3 % (50.0-75.0); NRBC % 0.2 % (0.0-0.0); PLATELET COUNT 258 K/uL (130-400); RBC 2.95 Mil/uL (3.80-5.20); RED CELL DISTRIBUTION WIDTH 16.6 % (11.5-14.5); WHITE BLOOD COUNT 11.3 K/uL (4.8-10.8)
[2018-08-13 21:04] LABS: VENOUS BLOOD GAS BASE EXCESS 2.2 mmol/L (0.0-2.0); VENOUS BLOOD GAS PCO2 39 mmHg (40-60); VENOUS BLOOD GAS PO2 37 mm/Hg (30-55); VENOUS BLOOD PH 7.44 (7.32-7.43)
--- NOTE | 2018-08-13 21:10 | ED PDOC ---
HPI: SOB/CHF/COPD Time Seen by Provider: 08/13/18 20:12 Chief Complaint (Nursing): Respiratory Distress Chief Complaint (Provider): Wheezing History Per: Patient History/Exam Limitations: no limitations Onset/Duration Of Symptoms: Other (x1 week) Current Symptoms Are (Timing): Still Present Associated Symptoms: denies: Fever Additional Complaint(s): 88 year old female presents to the ED with 1 week of worsening wheezing. Patient has a history of asthma and is treated by house visits by Dr. Renny Patel. Dr. Patel gave nebulizer treatment and a short course of steroids which did not help. Patient is also complaining of epigastric pain but states she has had no pain today. Denies fever, vomiting or diarrhea. Patient's last regular bowel movement was yesterday but states she feels constipated. She is tolerating PO. PMD: Dr. Renny Patel Past Medical History Reviewed: Historical Data, Nursing Documentation, Vital Signs Vital Signs: Last Vital Signs Temp 98.2 F 08/13/18 18:43 Pulse 73 08/13/18 18:43 Resp 18 08/13/18 18:43 BP 144/68 08/13/18 18:43 Pulse Ox 98 08/13/18 18:43 - Medical History PMH: Anxiety, Asthma, Bronchitis, CAD, CHF, COPD, Depression, Fractures, HTN, Hypercholesterolemia, Paranoia, Pneumonia Denies: Alzheimer's Disease, Anemia, Arthritis, Atrial Fibrillation, Bipolar Disorder, Cardia Arrhythmia, Crohn's Disease, Dementia, Diverticulitis, Emphysema, Gastritis, Gall Bladder Disease, HIV, Hyperthyroidism, Hypothyroidism, Kidney Stones, Migraine, Mitral Valve Prolapse, Multiple Sclerosis, Osteoporosis, Pancreatitis, Parkinson's Disease, Peripheral Edema, Post Traumatic Stress Disorder, Pulmonary Embolism, Chronic Kidney Disease, Rheumatoid Arthritis, Schizophrenia, Seizures, Sickle Cell Disease, Sexually Transmitted Disease, Sleep Apnea, TIA - Surgical History Surgical History: Denies: Appendectomy, CABG, Carotid Endarterectomy, Cholecystectomy, Coronary Stent, Pacemaker, Tonsillectomy - Family History Family History: States: Unknown Family Hx - Immunization History Hx Tetanus Toxoid Vaccination: No (pt unsure when last booster was given) - Home Medications Home Medications: Ambulatory Orders Medication Instructions Recorded RX: Alendronate [Fosamax] 70 mg PO FR 01/20/17 RX: Carvedilol [Coreg] 3.125 mg PO Q12H 01/20/17 RX: Docusate [Colace] 100 mg PO BID 01/20/17 RX: Enalapril Maleate [Vasotec] 20 mg PO DAILY 01/20/17 RX: LORazepam [Ativan] 0.5 mg PO DAILY 01/20/17 RX: Montelukast [Singulair] 10 mg PO HS 01/20/17 RX: Multivitamin [Multi-Vitamin 1 tab PO DAILY 01/20/17 Daily] RX: metFORMIN [glucOPHAGE] 500 mg PO BID 01/20/17 RX: Atorvastatin [Lipitor] 40 mg PO HS 05/14/18 RX: Budesonide [Pulmicort Respules] 2 ml IH Q12 05/14/18 RX: amLODIPine [Norvasc] 5 mg PO DAILY tab 05/19/18 RX: Multimineral/Multivitamin 1 tab PO DAILY tab 06/16/18 [Therapeutic-M Tab] RX: Acetaminophen [Tylenol 325mg 650 mg PO Q6 PRN tab 06/27/18 tab] RX: Albuterol/Ipratropium [Duoneb 3 ml IH Q12 neb 06/27/18 3 mg/0.5 mg (3 ml) UD] RX: Aspirin [Ecotrin] 81 mg PO DAILY tabec 06/27/18 RX: Clopidogrel [Plavix] 75 mg PO DAILY tab 06/27/18 RX: Ferrous Sulfate [Feosol] 325 mg PO DAILY tab 06/27/18 RX: Magnesium Hydroxide [Milk Of 30 ml PO DAILY PRN udc 06/27/18 Magnesia] RX: Pantoprazole [Protonix EC Tab] 40 mg PO DAILY ect 06/27/18 RX: Tolvaptan [Samsca] 15 mg PO DAILY tab 06/27/18 RX: Azelastine HCl [Astepro] 1 spray LUIS BID 08/13/18 RX: Fluticasone Propionate 1 spray LUIS BID 08/13/18 [Flonase Allergy Relief] RX: Furosemide [Lasix] 20 mg PO DAILY 08/13/18 - Allergies Allergies/Adverse Reactions: Allergies Allergy/AdvReac Type Severity Reaction Status Date / Time No Known Allergies Allergy Verified 06/16/18 14:16 Review of Systems ROS Statement: Except As Marked, All Systems Reviewed And Found Negative Constitutional: Negative for: Fever Respiratory: Positive for: Wheezing Gastrointestinal: Positive for: Abdominal Pain, Constipation. Negative for: Vomiting, Diarrhea Physical Exam - Reviewed Nursing Documentation Reviewed: Yes Vital Signs Reviewed: Yes - Physical Exam Appears: Positive for: Non-toxic, No Acute Distress Head Exam: Positive for: ATRAUMATIC, NORMOCEPHALIC Skin: Positive for: Normal Color, Warm, Dry Eye Exam: Positive for: Normal appearance Neck: Positive for: Normal, Painless ROM Cardiovascular/Chest: Positive for: Regular Rate, Rhythm Respiratory: Positive for: Decreased Breath Sounds (Decreased air entry bilatera lly), Wheezing (diffuse wheezing bilaterally) Gastrointestinal/Abdominal: Positive for: Normal Exam, Soft. Negative for: Tenderness Extremity: Positive for: Normal ROM Neurologic/Psych: Positive for: Alert, Oriented. Negative for: Motor/Sensory Deficits - Laboratory Results Result Diagrams: 08/13/18 20:30 08/13/18 20:30 Lab Results: pO2 37 mm/Hg (30-55) 08/13/18 20:23 VBG pH 7.44 (7.32-7.43) H 08/13/18 20:23 VBG pCO2 39 mmHg (40-60) L 08/13/18 20:23 VBG HCO3 26.2 mmol/L 08/13/18 20:23 VBG Total CO2 27.7 mmol/L (22-28) 08/13/18 20:23 VBG O2 Sat (Calc) 79.0 % (40-65) H 08/13/18 20:23 VBG Base Excess 2.2 mmol/L (0.0-2.0) H 08/13/18 20:23 VBG Potassium 4.1 mmol/L (3.6-5.2) 08/13/18 20:23 Sodium 127.0 mmol/L (132-148) L 08/13/18 20:23 Chloride 91.0 mmol/L (98-107) L 08/13/18 20:23 Glucose 137 mg/dL (65-105) H 08/13/18 20:23 Lactate 7.6 mmol/L (0.7-2.1) H* 08/13/18 20:23 FiO2 21.0 % 08/13/18 20:23 Crit Value Called To Augustina chung 08/13/18 20:23 Crit Value Called By 15 08/13/18 20:23 Crit Value Read Back Y 08/13/18 20:23 Blood Gas Notified Time 210308/13/18 20:23 - ECG O2 Sat by Pulse Oximetry: 98 (RA) Pulse Ox Interpretation: Normal Medical Decision Making Medical Decision Making: Initial Impression: Work up for pneumonia vs asthma exacerbation Initial Plan: --Duonebs --Solumedrol --Magnesium --Labs with cultures and lactate --Chest X-ray Spoke with Dr. Patel who agrees with workup for asthma exacerbation vs pneumonia. Patient will eventually be admitted once results are back and appropriate unit is determined. 22:09 Chest X-ray reviewed showing bilateral infiltrates. Will start treatment for pneumonia. Cultures ordered. Ceftriaxone and Azithromycin ordered. Vitals stable. Patient doesn't meet SIRS or sepsis criteria. Patient will be admitted to telemetry. Patient was admitted for several days approximately 1 month ago. Will treat for HCAP. Patient has a troponin of 0.8. Will get repeat ECG. Discussed admission with Dr. Cardozo and Dr. Patel. Scribe Attestation: Documented by Jm Darden acting as a scribe for Mariela Thornton MD. Provider Scribe Attestation: All medical record entries made by the Scribe were at my direction and personally dictated by me. I have reviewed the chart and agree that the record accurately reflects my personal performance of the history, physical exam, medical decision making, and the department course for this patient. I have also personally directed, reviewed, and agree with the discharge instructions and disposition. Disposition - Clinical Impression Clinical Impression: HCAP (healthcare-associated pneumonia) - Patient ED Disposition Is Patient to be Admitted: Yes - Disposition Disposition Time: 22:11 Condition: STABLE
[2018-08-13 21:16] LABS: ALB/GLOB RATIO 1.6 (1.0-2.1); ALBUMIN 3.9 g/dL (3.5-5.0); ALT/SGPT 188 U/L (9-52); AST/SGOT 247 U/L (14-36); BLOOD UREA NITROGEN 22 mg/dl (7-17); CALCIUM 9.1 mg/dL (8.4-10.2); GFR NON-AFRICAN AMERICAN > 60
[2018-08-13 21:37] LABS: B-TYPE NATRIURETIC PEPTIDE 4140 pg/ml (0-900)
[2018-08-13] MEDS ORDERED: Azithromycin 500 MG in Sodium Chloride 0.9% 250 ML IVPB STA (22:07)
[2018-08-13] MEDS ORDERED: Sodium Chloride 0.9% 1,000 ML IV STA ×2 (22:10→23:00)
[2018-08-13] MEDS ORDERED: Cefepime 2 GM in Sodium Chloride 0.9% 100 ML IVPB STA (22:16)
[2018-08-13 22:38] LABS: BANDS 3 % (0-2); LYMPHOCYTE 8 % (20-50); MONOCYTE 7 % (0-10); NEUTROPHIL 82 % (42-75); PLATELET ESTIMATE NORMAL (NORMAL); TOTAL CELLS COUNTED 100
[2018-08-13 22:39] LABS: ANISOCYTOSIS MODERATE; POIKILOCYTOSIS SLIGHT
[2018-08-13] MEDS ORDERED: Azithromycin 500 MG IV IVPB ONE (22:48)
[2018-08-14] MEDS ORDERED: Magnesium Hydroxide Susp 30 ml UD PO PRN (00:05)
[2018-08-14] MEDS: Albuterol-Ipratrop 3 mg / 0.5 (3 ml) UD INH SCH ×5 (00:13→19:28)
[2018-08-14] MEDS ORDERED: ALENDRONATE 70 MG TAB PO SCH (00:15)
[2018-08-14 01:37] VITALS: BMI 20.5
[2018-08-14 05:18] LABS: HEMOGLOBIN 8.6 g/dL (12.0-16.0); MEAN CELL VOLUME 98.7 fl (81.0-99.0); MEAN CORPUSCULAR HEMOGLOBIN 32.6 pg (27.0-31.0); RBC 2.65 Mil/uL (3.80-5.20); RED CELL DISTRIBUTION WIDTH 16.4 % (11.5-14.5); WHITE BLOOD COUNT 9.2 K/uL (4.8-10.8)
[2018-08-14 05:32] LABS: ALB/GLOB RATIO 1.4 (1.0-2.1); ALBUMIN 3.3 g/dL (3.5-5.0); ALT/SGPT 168 U/L (9-52); AST/SGOT 197 U/L (14-36); BLOOD UREA NITROGEN 23 mg/dl (7-17); CALCIUM 7.8 mg/dL (8.4-10.2); GFR NON-AFRICAN AMERICAN > 60; HDL CHOLESTEROL 75 MG/DL (30-70)
[2018-08-14 05:35] LABS: LDL CHOLESTEROL 46 mg/dL (0-129)
[2018-08-14] MEDS: Budesonide 0.25 mg/2 ml Inhal Susp UD IH SCH (08:09)
--- NOTE | 2018-08-14 08:53 | CARD ---
APPROVED REPORT Date of service: 08/13/2018 EKG Measurement Heart [id number] <Conclusion> Atrial fibrillation with rapid ventricular response Nonspecific ST-T changes Abnormal ECG
[2018-08-14] MEDS ORDERED: Azithromycin 500 MG in Sodium Chloride 0.9% 250 ML IVPB SCH (09:00)
[2018-08-14] MEDS ORDERED: Cefepime 2 GM in Sodium Chloride 0.9% 100 ML IVPB SCH (09:00)
[2018-08-14] MEDS ORDERED: Patient's Own Med (Azelastine Hcl [Astepro] 1 SPRAY) NAS SCH (09:00)
[2018-08-14] MEDS ORDERED: Albuterol-Ipratrop 3 mg / 0.5 (3 ml) UD IH SCH (09:00)
[2018-08-14] MEDS ORDERED: Patient's Own Med (Multivitamin [Multi-Vitamin Daily] 1 TAB) PO SCH (09:00)
--- NOTE | 2018-08-14 09:03 | CARD ---
APPROVED REPORT Date of service: 08/13/2018 EKG Measurement Heart [id number] <Conclusion> Sinus rhythm with frequent premature atrial and ventricular complexes ST & T wave abnormality, consider lateral ischemia Abnormal ECG
[2018-08-14] MEDS: Enoxaparin 30 mg Syringe SC SCH (09:19)
[2018-08-14] MEDS: Multivitamin With Minerals Tab PO SCH (09:20)
[2018-08-14] MEDS: Pantoprazole 40 mg EC Tab PO SCH (09:24)
[2018-08-14] MEDS: ALENDRONATE 70 MG TAB PO SCH (09:25)
--- NOTE | 2018-08-14 09:51 | CP.PCM.CON ---
History of Present Illness - History of Present Illness History of Present Illness: THE PATIENT IS AN 88 YEAR OLD FEMALE WHO WAS ADMITTED YESTERDAY FOR PNEUMONIA AND I WAS ASKED TO SEE HER. SHE HAS A HISTORY OF CAD, HYPERTENSION, HYPERLIPIDEMIA, COPD AND DM. SHE NOW STATES FOR AT LEAST 2 WEEKS SHE HAS BEEN SOB WITH PRITCHETT AND CAME TO THE ER AND WAS ADMITTED. SHE DENIES CHEST PAIN. SHE WAS ADMITTED TO [facility] IN MAY 2018 FOR AN ACUTE AWMI AND DECLINED INVASIVE WORK-UP AND OPTING FOR ONLY CONSERVATIVE MEDICAL TREATMENT. Past Patient History - Past Medical History & Family History Past Medical History?: Yes - Past Social History Smoking Status: Never Smoked - CARDIAC Hx Atrial Fibrillation: No Hx Cardia Arrhythmia: No Hx Congestive Heart Failure: Yes Hx Hypercholesterolemia: Yes Hx Hypertension: Yes Hx Mitral Valve Prolapse: No Hx Pacemaker: No Hx Peripheral Edema: No - PULMONARY Hx Asthma: Yes Hx Bronchitis: Yes Hx Chronic Obstructive Pulmonary Disease (COPD): Yes Hx Emphysema: No Hx Pneumonia: Yes Hx Pulmonary Embolism: No Hx Sleep Apnea: No - NEUROLOGICAL Hx Alzheimer's Disease: No Hx Dementia: No Hx Migraine: No Hx Multiple Sclerosis: No Hx Parkinson's Disease: No Hx Seizures: No Hx Transient Ischemic Attacks (TIA): No - HEENT Hx HEENT Problems: No - RENAL Hx Chronic Kidney Disease: No Hx Kidney Stones: No - ENDOCRINE/METABOLIC Hx Hyperthyroidism: No Hx Hypothyroidism: No - HEMATOLOGICAL/ONCOLOGICAL Hx Anemia: No Hx Human Immunodeficiency Virus (HIV): No Hx Sickle Cell Disease: No - INTEGUMENTARY Hx Dermatological Problems: No - MUSCULOSKELETAL/RHEUMATOLOGICAL Hx Arthritis: No Hx Fractures: Yes Hx Osteoporosis: No Hx Rheumatoid Arthritis: No - GASTROINTESTINAL Hx Crohn's Disease: No Hx Diverticulitis: No Hx Gall Bladder Disease: No Hx Gastritis: No Hx Pancreatitis: No - GENITOURINARY/GYNECOLOGICAL Hx Sexually Transmitted Disorders: No - PSYCHIATRIC Hx Anxiety: Yes Hx Bipolar Disorder: No Hx Depression: Yes Hx Paranoia: Yes Hx Post Traumatic Stress Disorder: No Hx Schizophrenia: No - SURGICAL HISTORY Hx Appendectomy: No Hx Carotid Endarterectomy: No Hx Cholecystectomy: No Hx Coronary Artery Bypass Graft: No Hx Coronary Stent: No Hx Tonsillectomy: No - ANESTHESIA Hx Anesthesia: Yes Hx Anesthesia Reactions: No Hx Malignant Hyperthermia: No Meds Allergies/Adverse Reactions: Allergies Allergy/AdvReac Type Severity Reaction Status Date / Time No Known Allergies Allergy Verified 06/16/18 14:16 - Medications Medications: Current Medications Acetaminophen (Tylenol 325mg Tab) 650 mg PO Q6 PRN PRN Reason: Pain, moderate (4-7) Albuterol/Ipratropium (Duoneb 3 Mg/0.5 Mg (3 Ml) Ud) 3 ml INH RQ4 [facility] Last Admin: 08/14/18 03:35 Dose: 3 ml Alendronate Sodium (Fosamax) 70 mg PO FRI [facility] Last Admin: 08/14/18 09:25 Dose: 70 mg Amlodipine Besylate (Norvasc) 5 mg PO DAILY [facility] Last Admin: 08/14/18 09:20 Dose: 5 mg Aspirin (Aspirin) 325 mg PO DAILY [facility] Last Admin: 08/14/18 09:25 Dose: 325 mg Aspirin (Ecotrin) 81 mg PO DAILY [facility] Last Admin: 08/14/18 09:21 Dose: Not Given Atorvastatin Calcium (Lipitor) 40 mg PO HS [facility] Budesonide (Pulmicort Respules) 0.25 mg IH Q12 [facility] Last Admin: 08/14/18 08:09 Dose: 0.25 mg Carvedilol (Coreg) 3.125 mg PO Q12 [facility] Last Admin: 08/14/18 09:20 Dose: 3.125 mg Clopidogrel Bisulfate (Plavix) 75 mg PO DAILY [facility] Last Admin: 08/14/18 09:20 Dose: 75 mg Docusate Sodium (Colace) 100 mg PO BID [facility] Last Admin: 08/14/18 09:20 Dose: 100 mg Enalapril Maleate (Vasotec) 20 mg PO DAILY [facility] Last Admin: 08/14/18 09:20 Dose: 20 mg Enoxaparin Sodium (Lovenox) 30 mg SC DAILY [facility]; Protocol Last Admin: 08/14/18 09:19 Dose: 30 mg Fluticasone Propionate (Flonase) 1 spr LUIS BID [facility] Last Admin: 08/14/18 09:23 Dose: 1 spr Furosemide (Lasix) 20 mg PO DAILY [facility] Last Admin: 08/14/18 09:20 Dose: 20 mg Azithromycin 500 mg/ Sodium (Chloride) 250 mls @ 250 mls/hr IVPB DAILY [facility]; Protocol Last Admin: 08/14/18 09:23 Dose: 250 mls/hr Cefepime HCl 2 gm/ Sodium (Chloride) 100 mls @ 100 mls/hr IVPB DAILY [facility]; Protocol Last Admin: 08/14/18 08:50 Dose: 100 mls/hr Lorazepam (Ativan) 0.5 mg PO DAILY [facility] Last Admin: 08/14/18 09:20 Dose: 0.5 mg Magnesium Hydroxide (Milk Of Magnesia) 30 ml PO DAILY PRN PRN Reason: Constipation Metformin HCl (Glucophage) 500 mg PO BID [facility] Last Admin: 08/14/18 09:20 Dose: 500 mg Montelukast Sodium (Singulair) 10 mg PO HS [facility] Multivitamins/Minerals (Therapeutic-M Tab) 1 tab PO DAILY [facility] Last Admin: 08/14/18 09:20 Dose: 1 tab Pantoprazole Sodium (Protonix Ec Tab) 40 mg PO DAILY [facility] Last Admin: 08/14/18 09:24 Dose: 40 mg Prednisone (Prednisone Tab) 60 mg PO Q8 [facility] Last Admin: 08/14/18 09:21 Dose: 60 mg Physical Exam - Respiratory Exam Respiratory Exam: Rales - Cardiovascular Exam Cardiovascular Exam: REGULAR RHYTHM, +S1, +S2 - Extremities Exam Additional comments: TRACE TO MILD LE EDEMA - Additional Findings Additional findings: EKG OF 08/13/18 NSR, PACS, SINGLE PVCS TROPONIN #1 0.8 TROPONIN #2 0.4 Results - Vital Signs Recent Vital Signs: Last Vital Signs Temp 97.8 F 08/14/18 08:23 Pulse 119 H 08/14/18 08:23 Resp 18 08/14/18 08:23 BP 123/71 08/14/18 09:20 Pulse Ox 92 L 08/14/18 08:23 - Labs Result Diagrams: 08/16/18 10:00 08/16/18 10:00 Labs: Laboratory Results - last 24 hr 08/13/18 08/13/18 08/13/18 20:23 20:30 20:30 WBC 11.3 H D RBC 2.95 L Hgb 9.4 L Hct 29.2 L MCV 99.0 D MCH 31.9 H MCHC 32.2 L RDW 16.6 H Plt Count 258 D MPV 8.2 Neut % (Auto) 83.3 H Lymph % (Auto) 9.3 L [place] % (Auto) 6.5 Eos % (Auto) 0.4 Baso % (Auto) 0.5 Neut # (Auto) 9.4 H Lymph # (Auto) 1.0 [place] # (Auto) 0.7 Eos # (Auto) 0.0 Baso # (Auto) 0.1 Neutrophils % (Manual) 82 H Band Neutrophils % 3 H Lymphocytes % (Manual) 8 L Monocytes % (Manual) 7 Platelet Estimate Normal Poikilocytosis (manual Slight Anisocytosis (manual) Moderate Macrocytosis (manual) Slight pO2 37 VBG pH 7.44 H VBG pCO2 39 L VBG HCO3 26.2 VBG Total CO2 27.7 VBG O2 Sat (Calc) 79.0 H VBG Base Excess 2.2 H VBG Potassium 4.1 Sodium 127.0 L 128 L Chloride 91.0 L 85 L Glucose 137 H Lactate 7.6 H* FiO2 21.0 Crit Value Called To Rn oliver rveeaurelio Crit Value Called By 15 Crit Value Read Back Y Blood Gas Notified Time 2103 Potassium 4.2 Carbon Dioxide 28 Anion Gap 19 BUN 22 H Creatinine 0.7 Est GFR ( Amer) > 60 Est GFR (Non-Af Amer) > 60 POC Glucose (mg/dL) Random Glucose 139 H Lactic Acid Calcium 9.1 Total Bilirubin 0.5 AST 247 H D ALT 188 H D Alkaline Phosphatase 247 H D Troponin I 0.8040 H* NT-Pro-B Natriuret Pep 4140 H Total Protein 6.4 Albumin 3.9 Globulin 2.5 Albumin/Globulin Ratio 1.6 Triglycerides Cholesterol LDL Cholesterol Direct HDL Cholesterol TSH 3rd Generation Venous Blood Potassium 4.1 Influenza Typ A,B (EIA) 08/13/18 08/13/18 08/14/18 20:30 22:20 04:20 WBC 9.2 RBC 2.65 L Hgb 8.6 L Hct 26.1 L MCV 98.7 MCH 32.6 H MCHC 33.0 RDW 16.4 H Plt Count 239 MPV Neut % (Auto) Lymph % (Auto) [place] % (Auto) Eos % (Auto) Baso % (Auto) Neut # (Auto) Lymph # (Auto) [place] # (Auto) Eos # (Auto) Baso # (Auto) Neutrophils % (Manual) Band Neutrophils % Lymphocytes % (Manual) Monocytes % (Manual) Platelet Estimate Poikilocytosis (manual Anisocytosis (manual) Macrocytosis (manual) pO2 VBG pH VBG pCO2 VBG HCO3 VBG Total CO2 VBG O2 Sat (Calc) VBG Base Excess VBG Potassium Sodium Chloride Glucose Lactate FiO2 Crit Value Called To Crit Value Called By Crit Value Read Back Blood Gas Notified Time Potassium Carbon Dioxide Anion Gap BUN Creatinine Est GFR ( Amer) Est GFR (Non-Af Amer) POC Glucose (mg/dL) Random Glucose Lactic Acid 6.0 H* Calcium Total Bilirubin AST ALT Alkaline Phosphatase Troponin I NT-Pro-B Natriuret Pep Total Protein Albumin Globulin Albumin/Globulin Ratio Triglycerides Cholesterol LDL Cholesterol Direct HDL Cholesterol TSH 3rd Generation Venous Blood Potassium Influenza Typ A,B (EIA) Negative for flu a/b 08/14/18 08/14/18 04:20 05:26 WBC RBC Hgb Hct MCV MCH MCHC RDW Plt Count MPV Neut % (Auto) Lymph % (Auto) [place] % (Auto) Eos % (Auto) Baso % (Auto) Neut # (Auto) Lymph # (Auto) [place] # (Auto) Eos # (Auto) Baso # (Auto) Neutrophils % (Manual) Band Neutrophils % Lymphocytes % (Manual) Monocytes % (Manual) Platelet Estimate Poikilocytosis (manual Anisocytosis (manual) Macrocytosis (manual) pO2 VBG pH VBG pCO2 VBG HCO3 VBG Total CO2 VBG O2 Sat (Calc) VBG Base Excess VBG Potassium Sodium 129 L Chloride 89 L Glucose Lactate FiO2 Crit Value Called To Crit Value Called By Crit Value Read Back Blood Gas Notified Time Potassium 4.1 Carbon Dioxide 27 Anion Gap 17 BUN 23 H Creatinine 0.6 L Est GFR ( Amer) > 60 Est GFR (Non-Af Amer) > 60 POC Glucose (mg/dL) 187 H Random Glucose 155 H Lactic Acid Calcium 7.8 L Total Bilirubin 0.6 AST 197 H D ALT 168 H Alkaline Phosphatase 217 H Troponin I 0.4360 H* NT-Pro-B Natriuret Pep Total Protein 5.7 L Albumin 3.3 L Globulin 2.4 Albumin/Globulin Ratio 1.4 Triglycerides 75 Cholesterol 132 LDL Cholesterol Direct 46 HDL Cholesterol 75 H TSH 3rd Generation 0.94 Venous Blood Potassium Influenza Typ A,B (EIA) Assessment & Plan - Assessment and Plan (Free Text) Assessment: PNEUMONIA CAD WITH OLD AWMI AND NOW NEW NSTEMI HYPERTENSION HYPERLIPIDEMIA COPD TYPE 2 DM Plan: THE PATIENT WAS ADMITTED TO ON TELEMETRY SHE AGAIN ONLY WANTS CONSEVATIVE MEDICAL TREATMENT O2, ASPIRIN, CLOPIDOGREL, CARVEDILOL, ENALAPRIL, FUROSEMIDE, ATORVASTATIN, AMLODIPINE, ANTIBIOTICS AND COPD MEDS NOTE: DVT PROPHYLAXIS DOSAGE AND NOT THERAPEUTIC LOVENOX WAS USED BECAUSE THE PATIENT HAD RECTAL BLEEDING ON A RECENT ADMISSION AND DECLINED A COLONOSCOPY SERIAL EKGS AND TROPONINS
--- NOTE | 2018-08-14 09:58 | RAD ---
Date of service: 08/13/2018 HISTORY: cough COMPARISON: Portable chest 05/20/2018. FINDINGS: LUNGS: Clear markings are increased though not as prominent as previously shown, on a diffuse basis. Findings suggests potential mild or early CHF with medial basilar atelectasis or infiltrate developing in the left base. PLEURA: No significant pleural effusion identified, no pneumothorax apparent. CARDIOVASCULAR: Calcific atherosclerotic changes are seen related to the thoracic aorta. Cardiomegaly appears stable. Borderline pulmonary vascular congestion. OSSEOUS STRUCTURES: No significant abnormalities. VISUALIZED UPPER ABDOMEN: Normal. OTHER FINDINGS: None. IMPRESSION: Early CHF suspected. Borderline pulmonary vascular congestion and interstitial changes are increased though not as prominent as previously shown. Stable cardiomegaly. Medial basilar airspace disease identified.
[2018-08-14 10:57] LABS: HEMOGLOBIN 8.8 g/dL (12.0-16.0); MEAN CELL VOLUME 97.5 fl (81.0-99.0); MEAN CORPUSCULAR HEMOGLOBIN 33.1 pg (27.0-31.0); MEAN CORPUSCULAR HGB CONC 33.9 g/dL (33.0-37.0); RBC 2.67 Mil/uL (3.80-5.20); RED CELL DISTRIBUTION WIDTH 16.6 % (11.5-14.5); WHITE BLOOD COUNT 9.2 K/uL (4.8-10.8)
[2018-08-14 11:07] LABS: ALB/GLOB RATIO 1.4 (1.0-2.1); ALBUMIN 3.5 g/dL (3.5-5.0); ALT/SGPT 176 U/L (9-52); AST/SGOT 215 U/L (14-36); BLOOD UREA NITROGEN 25 mg/dl (7-17); CALCIUM 7.7 mg/dL (8.4-10.2); GFR NON-AFRICAN AMERICAN > 60
[2018-08-14] MEDS ORDERED: MethylPREDNISolone 40 mg Vial IVP SCH (11:15)
--- NOTE | 2018-08-14 12:37 | CP.PCM.CON ---
History of Present Illness - History of Present Illness History of Present Illness: This patient who is 88 years of age female was admitted because of worsening COPD symptoms coughing wheezing. And she is known to me from previous admission with diagnosis chronic SIADH with chronic hyponatremia. Patient was treated with Samsca previously 15 mg daily and presented this time with hyponatremia for which I was called to see this patient for further determination. Medical history COPD acute wall myocardial infarction chest pain diabetes mellitus hypertension and hyperlipidemia Review of Systems - Constitutional Constitutional: Anorexia. absent: Chills - EENT Eyes: Dry Eye Nose/Mouth/Throat: absent: Nasal Congestion, Bleeding Gums - Cardiovascular Cardiovascular: Dyspnea, Dyspnea on Exertion, Leg Ulcers. absent: Leg Edema - Respiratory Respiratory: Cough. absent: Hemoptysis - Gastrointestinal Gastrointestinal: absent: Abdominal Pain, Diarrhea, Melena - Genitourinary Genitourinary: Nocturia - Musculoskeletal Musculoskeletal: Muscle Weakness. absent: Back Pain - Integumentary Integumentary: absent: Acne - Neurological Neurological: absent: Convulsions, Dizziness, Numbness - Psychiatric Psychiatric: Abnormal Sleep Pattern, Anxiety - Endocrine Endocrine: Fatigue - Hematologic/Lymphatic Hematologic: absent: Easy Bleeding Past Patient History - Past Medical History & Family History Past Medical History?: Yes - Past Social History Smoking Status: Never Smoked - CARDIAC Hx Atrial Fibrillation: No Hx Cardia Arrhythmia: No Hx Congestive Heart Failure: Yes Hx Hypercholesterolemia: Yes Hx Hypertension: Yes Hx Mitral Valve Prolapse: No Hx Pacemaker: No Hx Peripheral Edema: No - PULMONARY Hx Asthma: Yes Hx Bronchitis: Yes Hx Chronic Obstructive Pulmonary Disease (COPD): Yes Hx Emphysema: No Hx Pneumonia: Yes Hx Pulmonary Embolism: No Hx Sleep Apnea: No - NEUROLOGICAL Hx Alzheimer's Disease: No Hx Dementia: No Hx Migraine: No Hx Multiple Sclerosis: No Hx Parkinson's Disease: No Hx Seizures: No Hx Transient Ischemic Attacks (TIA): No - HEENT Hx HEENT Problems: No - RENAL Hx Chronic Kidney Disease: No Hx Kidney Stones: No - ENDOCRINE/METABOLIC Hx Hyperthyroidism: No Hx Hypothyroidism: No - HEMATOLOGICAL/ONCOLOGICAL Hx Anemia: No Hx Human Immunodeficiency Virus (HIV): No Hx Sickle Cell Disease: No - INTEGUMENTARY Hx Dermatological Problems: No - MUSCULOSKELETAL/RHEUMATOLOGICAL Hx Arthritis: No Hx Fractures: Yes Hx Osteoporosis: No Hx Rheumatoid Arthritis: No - GASTROINTESTINAL Hx Crohn's Disease: No Hx Diverticulitis: No Hx Gall Bladder Disease: No Hx Gastritis: No Hx Pancreatitis: No - GENITOURINARY/GYNECOLOGICAL Hx Sexually Transmitted Disorders: No - PSYCHIATRIC Hx Anxiety: Yes Hx Bipolar Disorder: No Hx Depression: Yes Hx Paranoia: Yes Hx Post Traumatic Stress Disorder: No Hx Schizophrenia: No - SURGICAL HISTORY Hx Appendectomy: No Hx Carotid Endarterectomy: No Hx Cholecystectomy: No Hx Coronary Artery Bypass Graft: No Hx Coronary Stent: No Hx Tonsillectomy: No - ANESTHESIA Hx Anesthesia: Yes Hx Anesthesia Reactions: No Hx Malignant Hyperthermia: No Meds Allergies/Adverse Reactions: Allergies Allergy/AdvReac Type Severity Reaction Status Date / Time No Known Allergies Allergy Verified 06/16/18 14:16 - Medications Medications: Current Medications Acetaminophen (Tylenol 325mg Tab) 650 mg PO Q6 PRN PRN Reason: Pain, moderate (4-7) Albuterol/Ipratropium (Duoneb 3 Mg/0.5 Mg (3 Ml) Ud) 3 ml INH RQ4 [facility] Last Admin: 08/14/18 11:20 Dose: 3 ml Alendronate Sodium (Fosamax) 70 mg PO FRI [facility] Last Admin: 08/14/18 09:25 Dose: 70 mg Amlodipine Besylate (Norvasc) 5 mg PO DAILY [facility] Last Admin: 08/14/18 09:20 Dose: 5 mg Aspirin (Aspirin) 325 mg PO DAILY [facility] Last Admin: 08/14/18 09:25 Dose: 325 mg Atorvastatin Calcium (Lipitor) 40 mg PO HS [facility] Azithromycin (Zithromax) 500 mg PO DAILY [facility] Budesonide (Pulmicort Respules) 0.25 mg IH Q12 [facility] Last Admin: 08/14/18 08:09 Dose: 0.25 mg Carvedilol (Coreg) 3.125 mg PO Q12 [facility] Last Admin: 08/14/18 09:20 Dose: 3.125 mg Clopidogrel Bisulfate (Plavix) 75 mg PO DAILY [facility] Last Admin: 08/14/18 09:20 Dose: 75 mg Docusate Sodium (Colace) 100 mg PO BID [facility] Last Admin: 08/14/18 09:20 Dose: 100 mg Enalapril Maleate (Vasotec) 20 mg PO DAILY [facility] Last Admin: 08/14/18 09:20 Dose: 20 mg Enoxaparin Sodium (Lovenox) 30 mg SC DAILY [facility]; Protocol Last Admin: 08/14/18 09:19 Dose: 30 mg Fluticasone Propionate (Flonase) 1 spr LUIS BID [facility] Last Admin: 08/14/18 09:23 Dose: 1 spr Furosemide (Lasix) 20 mg PO DAILY [facility] Last Admin: 08/14/18 09:20 Dose: 20 mg Cefepime HCl 2 gm/ Sodium (Chloride) 100 mls @ 100 mls/hr IVPB Q8H [facility]; Protocol Lorazepam (Ativan) 0.5 mg PO DAILY [facility] Last Admin: 08/14/18 09:20 Dose: 0.5 mg Magnesium Hydroxide (Milk Of Magnesia) 30 ml PO DAILY PRN PRN Reason: Constipation Metformin HCl (Glucophage) 500 mg PO BID [facility] Last Admin: 08/14/18 09:20 Dose: 500 mg Methylprednisolone (Solu-Medrol) 40 mg IVP Q8H [facility] Montelukast Sodium (Singulair) 10 mg PO HS [facility] Multivitamins/Minerals (Therapeutic-M Tab) 1 tab PO DAILY [facility] Last Admin: 08/14/18 09:20 Dose: 1 tab Pantoprazole Sodium (Protonix Ec Tab) 40 mg PO DAILY [facility] Last Admin: 08/14/18 09:24 Dose: 40 mg Physical Exam - Constitutional Appears: No Acute Distress - Eye Exam Eye Exam: Conjunctival injection - ENT Exam ENT Exam: Mucous Membranes Moist - Neck Exam Neck exam: Negative for: Lymphadenopathy - Respiratory Exam Respiratory Exam: absent: Chest Wall Tenderness - Cardiovascular Exam Cardiovascular Exam: absent: Gallop, JVD, Rubs - GI/Abdominal Exam GI & Abdominal Exam: Normal Bowel Sounds. absent: Guarding - Extremities Exam Extremities exam: Negative for: calf tenderness - Back Exam Back exam: absent: CVA tenderness (L), CVA tenderness (R) - Neurological Exam Neurological exam: Alert Results - Vital Signs Recent Vital Signs: Last Vital Signs Temp 98.5 F 08/14/18 12:18 Pulse 129 H 08/14/18 12:18 Resp 18 08/14/18 12:18 BP 143/70 08/14/18 12:18 Pulse Ox 99 08/14/18 12:18 - Labs Result Diagrams: 08/14/18 10:48 08/14/18 10:48 Labs: Laboratory Results - last 24 hr 08/13/18 08/13/18 08/13/18 20:23 20:30 20:30 WBC 11.3 H D RBC 2.95 L Hgb 9.4 L Hct 29.2 L MCV 99.0 D MCH 31.9 H MCHC 32.2 L RDW 16.6 H Plt Count 258 D MPV 8.2 Neut % (Auto) 83.3 H Lymph % (Auto) 9.3 L [place] % (Auto) 6.5 Eos % (Auto) 0.4 Baso % (Auto) 0.5 Neut # (Auto) 9.4 H Lymph # (Auto) 1.0 [place] # (Auto) 0.7 Eos # (Auto) 0.0 Baso # (Auto) 0.1 Neutrophils % (Manual) 82 H Band Neutrophils % 3 H Lymphocytes % (Manual) 8 L Monocytes % (Manual) 7 Platelet Estimate Normal Poikilocytosis (manual Slight Anisocytosis (manual) Moderate Macrocytosis (manual) Slight pO2 37 VBG pH 7.44 H VBG pCO2 39 L VBG HCO3 26.2 VBG Total CO2 27.7 VBG O2 Sat (Calc) 79.0 H VBG Base Excess 2.2 H VBG Potassium 4.1 Sodium 127.0 L 128 L Chloride 91.0 L 85 L Glucose 137 H Lactate 7.6 H* FiO2 21.0 Crit Value Called To Rn oliver rveey Crit Value Called By 15 Crit Value Read Back Y Blood Gas Notified Time 2103 Potassium 4.2 Carbon Dioxide 28 Anion Gap 19 BUN 22 H Creatinine 0.7 Est GFR ( Amer) > 60 Est GFR (Non-Af Amer) > 60 POC Glucose (mg/dL) Random Glucose 139 H Lactic Acid Calcium 9.1 Phosphorus Magnesium Total Bilirubin 0.5 AST 247 H D ALT 188 H D Alkaline Phosphatase 247 H D Troponin I 0.8040 H* NT-Pro-B Natriuret Pep 4140 H Total Protein 6.4 Albumin 3.9 Globulin 2.5 Albumin/Globulin Ratio 1.6 Triglycerides Cholesterol LDL Cholesterol Direct HDL Cholesterol TSH 3rd Generation Venous Blood Potassium 4.1 Influenza Typ A,B (EIA) 08/13/18 08/13/18 08/14/18 20:30 22:20 04:20 WBC 9.2 RBC 2.65 L Hgb 8.6 L Hct 26.1 L MCV 98.7 MCH 32.6 H MCHC 33.0 RDW 16.4 H Plt Count 239 MPV Neut % (Auto) Lymph % (Auto) [place] % (Auto) Eos % (Auto) Baso % (Auto) Neut # (Auto) Lymph # (Auto) [place] # (Auto) Eos # (Auto) Baso # (Auto) Neutrophils % (Manual) Band Neutrophils % Lymphocytes % (Manual) Monocytes % (Manual) Platelet Estimate Poikilocytosis (manual Anisocytosis (manual) Macrocytosis (manual) pO2 VBG pH VBG pCO2 VBG HCO3 VBG Total CO2 VBG O2 Sat (Calc) VBG Base Excess VBG Potassium Sodium Chloride Glucose Lactate FiO2 Crit Value Called To Crit Value Called By Crit Value Read Back Blood Gas Notified Time Potassium Carbon Dioxide Anion Gap BUN Creatinine Est GFR ( Amer) Est GFR (Non-Af Amer) POC Glucose (mg/dL) Random Glucose Lactic Acid 6.0 H* Calcium Phosphorus Magnesium Total Bilirubin AST ALT Alkaline Phosphatase Troponin I NT-Pro-B Natriuret Pep Total Protein Albumin Globulin Albumin/Globulin Ratio Triglycerides Cholesterol LDL Cholesterol Direct HDL Cholesterol TSH 3rd Generation Venous Blood Potassium Influenza Typ A,B (EIA) Negative for flu a/b 08/14/18 08/14/18 08/14/18 04:20 05:26 10:48 WBC 9.2 RBC 2.67 L Hgb 8.8 L Hct 26.1 L MCV 97.5 MCH 33.1 H MCHC 33.9 RDW 16.6 H Plt Count 243 MPV Neut % (Auto) Lymph % (Auto) [place] % (Auto) Eos % (Auto) Baso % (Auto) Neut # (Auto) Lymph # (Auto) [place] # (Auto) Eos # (Auto) Baso # (Auto) Neutrophils % (Manual) Band Neutrophils % Lymphocytes % (Manual) Monocytes % (Manual) Platelet Estimate Poikilocytosis (manual Anisocytosis (manual) Macrocytosis (manual) pO2 VBG pH VBG pCO2 VBG HCO3 VBG Total CO2 VBG O2 Sat (Calc) VBG Base Excess VBG Potassium Sodium 129 L Chloride 89 L Glucose Lactate FiO2 Crit Value Called To Crit Value Called By Crit Value Read Back Blood Gas Notified Time Potassium 4.1 Carbon Dioxide 27 Anion Gap 17 BUN 23 H Creatinine 0.6 L Est GFR ( Amer) > 60 Est GFR (Non-Af Amer) > 60 POC Glucose (mg/dL) 187 H Random Glucose 155 H Lactic Acid Calcium 7.8 L Phosphorus Magnesium Total Bilirubin 0.6 AST 197 H D ALT 168 H Alkaline Phosphatase 217 H Troponin I 0.4360 H* NT-Pro-B Natriuret Pep Total Protein 5.7 L Albumin 3.3 L Globulin 2.4 Albumin/Globulin Ratio 1.4 Triglycerides 75 Cholesterol 132 LDL Cholesterol Direct 46 HDL Cholesterol 75 H TSH 3rd Generation 0.94 Venous Blood Potassium Influenza Typ A,B (EIA) 08/14/18 08/14/18 08/14/18 10:48 10:48 11:00 WBC RBC Hgb Hct MCV MCH MCHC RDW Plt Count MPV Neut % (Auto) Lymph % (Auto) [place] % (Auto) Eos % (Auto) Baso % (Auto) Neut # (Auto) Lymph # (Auto) [place] # (Auto) Eos # (Auto) Baso # (Auto) Neutrophils % (Manual) Band Neutrophils % Lymphocytes % (Manual) Monocytes % (Manual) Platelet Estimate Poikilocytosis (manual Anisocytosis (manual) Macrocytosis (manual) pO2 VBG pH VBG pCO2 VBG HCO3 VBG Total CO2 VBG O2 Sat (Calc) VBG Base Excess VBG Potassium Sodium 129 L Chloride 89 L Glucose Lactate FiO2 Crit Value Called To Crit Value Called By Crit Value Read Back Blood Gas Notified Time Potassium 4.1 Carbon Dioxide 25 Anion Gap 19 BUN 25 H Creatinine 0.5 L Est GFR ( Amer) > 60 Est GFR (Non-Af Amer) > 60 POC Glucose (mg/dL) 201 H Random Glucose 185 H Lactic Acid 3.3 H Calcium 7.7 L Phosphorus 3.3 Magnesium 2.3 Total Bilirubin 0.7 AST 215 H ALT 176 H Alkaline Phosphatase 196 H Troponin I NT-Pro-B Natriuret Pep Total Protein 6.0 L Albumin 3.5 Globulin 2.6 Albumin/Globulin Ratio 1.4 Triglycerides Cholesterol LDL Cholesterol Direct HDL Cholesterol TSH 3rd Generation Venous Blood Potassium Influenza Typ A,B (EIA) Assessment & Plan (1) SIADH (syndrome of inappropriate ADH production) Assessment and Plan: Patient admitted with worsening COPD and possibly non-ST changes myocardial ischemia/infarction ? Patient diagnosed with a chronic SIADH previously with chronic hyponatremia patient was on Samsca 15 mg daily previously but apparently she is not taking it as outpatient. The plan now Stat spot urine for sodium osmolarity Samsca 50 mg today and we will monitor serum sodium not to rise more than somewhere 8-10 mEq in 24 hours Status: Acute
[2018-08-14] MEDS ORDERED: Tolvaptan 15 MG TAB PO ONE (12:45)
[2018-08-14 15:44] LABS: SQUAMOUS EPITHIAL 1 /hpf (0-5); URINE BILIRUBIN NEGATIVE (NEGATIVE); URINE BLOOD NEGATIVE (NEGATIVE); URINE CLARITY CLOUDY (Clear); URINE COLOR YELLOW (YELLOW); URINE GLUCOSE (UA) NEG (NEGATIVE); URINE LEUKOCYTE ESTERASE NEG Leu/uL (Negative); URINE PROTEIN 30 mg/dL (NEGATIVE); URINE UROBILINOGEN 0.2-1.0 mg/dL (0.2-1.0)
[2018-08-14 16:24] LABS: CREATININE, RANDOM URINE 53.6 mg/dL
[2018-08-14] MEDS: Cefepime 2 GM in Sodium Chloride 0.9% 100 ML IVPB SCH ×2 (17:14→20:15)
[2018-08-14] MEDS: MethylPREDNISolone 40 mg Vial IVP SCH ×2 (17:24→22:06)
--- NOTE | 2018-08-14 17:56 | CP.PCM.HP ---
History of Present Illness - History of Present Illness History of Present Illness: 88 yo admitted for persistent SOB asthma . Pt tx with course of oral steroids as outpt Present on Admission - Present on Admission Any Indicators Present on Admission: No Past Patient History - Past Medical History & Family History Past Medical History?: Yes - Past Social History Smoking Status: Never Smoked - CARDIAC Hx Atrial Fibrillation: No Hx Cardia Arrhythmia: No Hx Congestive Heart Failure: Yes Hx Hypercholesterolemia: Yes Hx Hypertension: Yes Hx Mitral Valve Prolapse: No Hx Pacemaker: No Hx Peripheral Edema: No - PULMONARY Hx Asthma: Yes Hx Bronchitis: Yes Hx Chronic Obstructive Pulmonary Disease (COPD): Yes Hx Emphysema: No Hx Pneumonia: Yes Hx Pulmonary Embolism: No Hx Sleep Apnea: No - NEUROLOGICAL Hx Alzheimer's Disease: No Hx Dementia: No Hx Migraine: No Hx Multiple Sclerosis: No Hx Parkinson's Disease: No Hx Seizures: No Hx Transient Ischemic Attacks (TIA): No - HEENT Hx HEENT Problems: No - RENAL Hx Chronic Kidney Disease: No Hx Kidney Stones: No - ENDOCRINE/METABOLIC Hx Hyperthyroidism: No Hx Hypothyroidism: No - HEMATOLOGICAL/ONCOLOGICAL Hx Anemia: No Hx Human Immunodeficiency Virus (HIV): No Hx Sickle Cell Disease: No - INTEGUMENTARY Hx Dermatological Problems: No - MUSCULOSKELETAL/RHEUMATOLOGICAL Hx Arthritis: No Hx Fractures: Yes Hx Osteoporosis: No Hx Rheumatoid Arthritis: No - GASTROINTESTINAL Hx Crohn's Disease: No Hx Diverticulitis: No Hx Gall Bladder Disease: No Hx Gastritis: No Hx Pancreatitis: No - GENITOURINARY/GYNECOLOGICAL Hx Sexually Transmitted Disorders: No - PSYCHIATRIC Hx Anxiety: Yes Hx Bipolar Disorder: No Hx Depression: Yes Hx Paranoia: Yes Hx Post Traumatic Stress Disorder: No Hx Schizophrenia: No - SURGICAL HISTORY Hx Appendectomy: No Hx Carotid Endarterectomy: No Hx Cholecystectomy: No Hx Coronary Artery Bypass Graft: No Hx Coronary Stent: No Hx Tonsillectomy: No - ANESTHESIA Hx Anesthesia: Yes Hx Anesthesia Reactions: No Hx Malignant Hyperthermia: No Meds Allergies/Adverse Reactions: Allergies Allergy/AdvReac Type Severity Reaction Status Date / Time No Known Allergies Allergy Verified 06/16/18 14:16 Results - Vital Signs Recent Vital Signs: Last Vital Signs Temp 98.3 F 08/14/18 16:26 Pulse 114 H 08/14/18 16:26 Resp 18 08/14/18 16:26 BP 105/63 08/14/18 16:26 Pulse Ox 96 08/14/18 16:26 - Labs Result Diagrams: 08/14/18 10:48 08/14/18 10:48 Labs: Laboratory Results - last 24 hr 08/13/18 08/13/18 08/13/18 20:23 20:30 20:30 WBC 11.3 H D RBC 2.95 L Hgb 9.4 L Hct 29.2 L MCV 99.0 D MCH 31.9 H MCHC 32.2 L RDW 16.6 H Plt Count 258 D MPV 8.2 Neut % (Auto) 83.3 H Lymph % (Auto) 9.3 L [place] % (Auto) 6.5 Eos % (Auto) 0.4 Baso % (Auto) 0.5 Neut # (Auto) 9.4 H Lymph # (Auto) 1.0 [place] # (Auto) 0.7 Eos # (Auto) 0.0 Baso # (Auto) 0.1 Neutrophils % (Manual) 82 H Band Neutrophils % 3 H Lymphocytes % (Manual) 8 L Monocytes % (Manual) 7 Platelet Estimate Normal Poikilocytosis (manual Slight Anisocytosis (manual) Moderate Macrocytosis (manual) Slight pO2 37 VBG pH 7.44 H VBG pCO2 39 L VBG HCO3 26.2 VBG Total CO2 27.7 VBG O2 Sat (Calc) 79.0 H VBG Base Excess 2.2 H VBG Potassium 4.1 Sodium 127.0 L 128 L Chloride 91.0 L 85 L Glucose 137 H Lactate 7.6 H* FiO2 21.0 Crit Value Called To Rn oliver [email or web address] Crit Value Called By 15 Crit Value Read Back Y Blood Gas Notified Time 2103 Potassium 4.2 Carbon Dioxide 28 Anion Gap 19 BUN 22 H Creatinine 0.7 Est GFR ( Amer) > 60 Est GFR (Non-Af Amer) > 60 POC Glucose (mg/dL) Random Glucose 139 H Lactic Acid Calcium 9.1 Phosphorus Magnesium Total Bilirubin 0.5 AST 247 H D ALT 188 H D Alkaline Phosphatase 247 H D Troponin I 0.8040 H* NT-Pro-B Natriuret Pep 4140 H Total Protein 6.4 Albumin 3.9 Globulin 2.5 Albumin/Globulin Ratio 1.6 Triglycerides Cholesterol LDL Cholesterol Direct HDL Cholesterol TSH 3rd Generation Venous Blood Potassium 4.1 Urine Color Urine Clarity Urine pH Ur Specific [place] Urine Protein Urine Glucose (UA) Urine Ketones Urine Blood Urine Nitrate Urine Bilirubin Urine Urobilinogen Ur Leukocyte Esterase Urine RBC (Auto) Urine Microscopic WBC Ur Squamous Epith Cells Hyaline Casts Urine Osmolality Ur Random Creatinine Ur Random Sodium Influenza Typ A,B (EIA) 08/13/18 08/13/18 08/14/18 20:30 22:20 04:20 WBC 9.2 RBC 2.65 L Hgb 8.6 L Hct 26.1 L MCV 98.7 MCH 32.6 H MCHC 33.0 RDW 16.4 H Plt Count 239 MPV Neut % (Auto) Lymph % (Auto) [place] % (Auto) Eos % (Auto) Baso % (Auto) Neut # (Auto) Lymph # (Auto) [place] # (Auto) Eos # (Auto) Baso # (Auto) Neutrophils % (Manual) Band Neutrophils % Lymphocytes % (Manual) Monocytes % (Manual) Platelet Estimate Poikilocytosis (manual Anisocytosis (manual) Macrocytosis (manual) pO2 VBG pH VBG pCO2 VBG HCO3 VBG Total CO2 VBG O2 Sat (Calc) VBG Base Excess VBG Potassium Sodium Chloride Glucose Lactate FiO2 Crit Value Called To Crit Value Called By Crit Value Read Back Blood Gas Notified Time Potassium Carbon Dioxide Anion Gap BUN Creatinine Est GFR ( Amer) Est GFR (Non-Af Amer) POC Glucose (mg/dL) Random Glucose Lactic Acid 6.0 H* Calcium Phosphorus Magnesium Total Bilirubin AST ALT Alkaline Phosphatase Troponin I NT-Pro-B Natriuret Pep Total Protein Albumin Globulin Albumin/Globulin Ratio Triglycerides Cholesterol LDL Cholesterol Direct HDL Cholesterol TSH 3rd Generation Venous Blood Potassium Urine Color Urine Clarity Urine pH Ur Specific [place] Urine Protein Urine Glucose (UA) Urine Ketones Urine Blood Urine Nitrate Urine Bilirubin Urine Urobilinogen Ur Leukocyte Esterase Urine RBC (Auto) Urine Microscopic WBC Ur Squamous Epith Cells Hyaline Casts Urine Osmolality Ur Random Creatinine Ur Random Sodium Influenza Typ A,B (EIA) Negative for flu a/b 08/14/18 08/14/18 08/14/18 04:20 05:26 10:48 WBC 9.2 RBC 2.67 L Hgb 8.8 L Hct 26.1 L MCV 97.5 MCH 33.1 H MCHC 33.9 RDW 16.6 H Plt Count 243 MPV Neut % (Auto) Lymph % (Auto) [place] % (Auto) Eos % (Auto) Baso % (Auto) Neut # (Auto) Lymph # (Auto) [place] # (Auto) Eos # (Auto) Baso # (Auto) Neutrophils % (Manual) Band Neutrophils % Lymphocytes % (Manual) Monocytes % (Manual) Platelet Estimate Poikilocytosis (manual Anisocytosis (manual) Macrocytosis (manual) pO2 VBG pH VBG pCO2 VBG HCO3 VBG Total CO2 VBG O2 Sat (Calc) VBG Base Excess VBG Potassium Sodium 129 L Chloride 89 L Glucose Lactate FiO2 Crit Value Called To Crit Value Called By Crit Value Read Back Blood Gas Notified Time Potassium 4.1 Carbon Dioxide 27 Anion Gap 17 BUN 23 H Creatinine 0.6 L Est GFR ( Amer) > 60 Est GFR (Non-Af Amer) > 60 POC Glucose (mg/dL) 187 H Random Glucose 155 H Lactic Acid Calcium 7.8 L Phosphorus Magnesium Total Bilirubin 0.6 AST 197 H D ALT 168 H Alkaline Phosphatase 217 H Troponin I 0.4360 H* NT-Pro-B Natriuret Pep Total Protein 5.7 L Albumin 3.3 L Globulin 2.4 Albumin/Globulin Ratio 1.4 Triglycerides 75 Cholesterol 132 LDL Cholesterol Direct 46 HDL Cholesterol 75 H TSH 3rd Generation 0.94 Venous Blood Potassium Urine Color Urine Clarity Urine pH Ur Specific [place] Urine Protein Urine Glucose (UA) Urine Ketones Urine Blood Urine Nitrate Urine Bilirubin Urine Urobilinogen Ur Leukocyte Esterase Urine RBC (Auto) Urine Microscopic WBC Ur Squamous Epith Cells Hyaline Casts Urine Osmolality Ur Random Creatinine Ur Random Sodium Influenza Typ A,B (EIA) 08/14/18 08/14/18 08/14/18 10:48 10:48 11:00 WBC RBC Hgb Hct MCV MCH MCHC RDW Plt Count MPV Neut % (Auto) Lymph % (Auto) [place] % (Auto) Eos % (Auto) Baso % (Auto) Neut # (Auto) Lymph # (Auto) [place] # (Auto) Eos # (Auto) Baso # (Auto) Neutrophils % (Manual) Band Neutrophils % Lymphocytes % (Manual) Monocytes % (Manual) Platelet Estimate Poikilocytosis (manual Anisocytosis (manual) Macrocytosis (manual) pO2 VBG pH VBG pCO2 VBG HCO3 VBG Total CO2 VBG O2 Sat (Calc) VBG Base Excess VBG Potassium Sodium 129 L Chloride 89 L Glucose Lactate FiO2 Crit Value Called To Crit Value Called By Crit Value Read Back Blood Gas Notified Time Potassium 4.1 Carbon Dioxide 25 Anion Gap 19 BUN 25 H Creatinine 0.5 L Est GFR ( Amer) > 60 Est GFR (Non-Af Amer) > 60 POC Glucose (mg/dL) 201 H Random Glucose 185 H Lactic Acid 3.3 H Calcium 7.7 L Phosphorus 3.3 Magnesium 2.3 Total Bilirubin 0.7 AST 215 H ALT 176 H Alkaline Phosphatase 196 H Troponin I NT-Pro-B Natriuret Pep Total Protein 6.0 L Albumin 3.5 Globulin 2.6 Albumin/Globulin Ratio 1.4 Triglycerides Cholesterol LDL Cholesterol Direct HDL Cholesterol TSH 3rd Generation Venous Blood Potassium Urine Color Urine Clarity Urine pH Ur Specific [place] Urine Protein Urine Glucose (UA) Urine Ketones Urine Blood Urine Nitrate Urine Bilirubin Urine Urobilinogen Ur Leukocyte Esterase Urine RBC (Auto) Urine Microscopic WBC Ur Squamous Epith Cells Hyaline Casts Urine Osmolality Ur Random Creatinine Ur Random Sodium Influenza Typ A,B (EIA) 08/14/18 08/14/18 08/14/18 12:34 15:26 15:26 WBC RBC Hgb Hct MCV MCH MCHC RDW Plt Count MPV Neut % (Auto) Lymph % (Auto) [place] % (Auto) Eos % (Auto) Baso % (Auto) Neut # (Auto) Lymph # (Auto) [place] # (Auto) Eos # (Auto) Baso # (Auto) Neutrophils % (Manual) Band Neutrophils % Lymphocytes % (Manual) Monocytes % (Manual) Platelet Estimate Poikilocytosis (manual Anisocytosis (manual) Macrocytosis (manual) pO2 VBG pH VBG pCO2 VBG HCO3 VBG Total CO2 VBG O2 Sat (Calc) VBG Base Excess VBG Potassium Sodium Chloride Glucose Lactate FiO2 Crit Value Called To Crit Value Called By Crit Value Read Back Blood Gas Notified Time Potassium Carbon Dioxide Anion Gap BUN Creatinine Est GFR ( Amer) Est GFR (Non-Af Amer) POC Glucose (mg/dL) Random Glucose Lactic Acid Calcium Phosphorus Magnesium Total Bilirubin AST ALT Alkaline Phosphatase Troponin I 0.3270 H* NT-Pro-B Natriuret Pep Total Protein Albumin Globulin Albumin/Globulin Ratio Triglycerides Cholesterol LDL Cholesterol Direct HDL Cholesterol TSH 3rd Generation Venous Blood Potassium Urine Color Yellow Urine Clarity Cloudy Urine pH 6.0 Ur Specific [place] 1.021 Urine Protein 30 Urine Glucose (UA) Neg Urine Ketones Trace Urine Blood Negative Urine Nitrate Positive H Urine Bilirubin Negative Urine Urobilinogen 0.2-1.0 Ur Leukocyte Esterase Neg Urine RBC (Auto) 3 Urine Microscopic WBC 5 Ur Squamous Epith Cells 1 Hyaline Casts 11-20 H Urine Osmolality 595 Ur Random Creatinine 53.6 Ur Random Sodium 10 Influenza Typ A,B (EIA) Assessment & Plan - Assessment and Plan (Free Text) Assessment: S/P Acute ant wall AR New NSTEMI + CE new O2 JAYESH B-annia Nitrates ASA Cardiology Last Echo good LV fxn SOB COPD/ Asthma CAP?? 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 Nephrology ?? Samsca Anemia Hx Rectal bleeding stable Hx rectal prolapse Hx hemorrhoids Refusing w/u S/P Fall etiol?? 2 to above? Chronic anxiety Ativan - Date & Time Date: 08/14/18 Time: 22:22
[2018-08-14 19:34] LABS: BLOOD UREA NITROGEN 27 mg/dl (7-17); CALCIUM 7.7 mg/dL (8.4-10.2); GFR NON-AFRICAN AMERICAN > 60
[2018-08-15] MEDS: Albuterol-Ipratrop 3 mg / 0.5 (3 ml) UD INH SCH ×7 (00:04→19:12)
[2018-08-15] MEDS: Cefepime 2 GM in Sodium Chloride 0.9% 100 ML IVPB SCH ×3 (03:20→20:00)
[2018-08-15] MEDS: MethylPREDNISolone 40 mg Vial IVP SCH ×2 (06:18→22:24)
[2018-08-15 07:05] LABS: BLOOD UREA NITROGEN 30 mg/dl (7-17); GFR NON-AFRICAN AMERICAN > 60
[2018-08-15] MEDS: Pantoprazole 40 mg EC Tab PO SCH (09:59)
[2018-08-15] MEDS: Enoxaparin 30 mg Syringe SC SCH (09:59)
[2018-08-15] MEDS: Multivitamin With Minerals Tab PO SCH (09:59)
--- NOTE | 2018-08-15 10:25 | CP.PCM.CON ---
History of Present Illness - History of Present Illness History of Present Illness: 88 year old female, a former cigarette smoker with prior diagnosis of Bronchial Asthma, admitted through the emergency room with productive cough, SOB, but no fever, chills or chest pain. She did describe her sputum as being yellow in color. Her chest x-ray did show left basal infiltrate with shadowing of the left hemidiaphragm. She was influenza negative and did have mild leukocytosis in the ER. VBG revealed a lactate level of 7 with a naga pH and oxygen saturation. She was also nitrate positive on UA and had electrolyte abnormalities. Cardiology has also seen her because of NSTEMI. Past Patient History - Past Medical History & Family History Past Medical History?: Yes - Past Social History Smoking Status: Former Smoker Chewing Tobacco Use: No Cigar Use: No Alcohol: None Drugs: Denies ( ) - CARDIAC Hx Congestive Heart Failure: Yes Hx Heart Attack: Yes Hx Hypercholesterolemia: Yes Hx Hypertension: Yes Hx Peripheral Edema: Yes - PULMONARY Hx Asthma: Yes Hx Bronchitis: Yes Hx Pneumonia: Yes Hx Sleep Apnea: No - NEUROLOGICAL Hx Neurological Disorder: No - HEENT Hx HEENT Problems: No - RENAL Hx Chronic Kidney Disease: No - ENDOCRINE/METABOLIC Hx Endocrine Disorders: No - HEMATOLOGICAL/ONCOLOGICAL Hx Blood Disorders: No Hx Anemia: No Hx Human Immunodeficiency Virus (HIV): No - INTEGUMENTARY Hx Dermatological Problems: No - MUSCULOSKELETAL/RHEUMATOLOGICAL Hx Falls: Yes - GASTROINTESTINAL Hx Gastrointestinal Disorders: No - GENITOURINARY/GYNECOLOGICAL Hx Genitourinary Disorders: No - PSYCHIATRIC Hx Anxiety: Yes Hx Depression: Yes Hx Paranoia: Yes - SURGICAL HISTORY Hx Surgeries: No Hx Carotid Endarterectomy: No - ANESTHESIA Hx Anesthesia: Yes Hx Anesthesia Reactions: No Hx Malignant Hyperthermia: No Meds Allergies/Adverse Reactions: Allergies Allergy/AdvReac Type Severity Reaction Status Date / Time No Known Allergies Allergy Verified 06/16/18 14:16 - Medications Medications: Current Medications Acetaminophen (Tylenol 325mg Tab) 650 mg PO Q6 PRN PRN Reason: Pain, moderate (4-7) Albuterol/Ipratropium (Duoneb 3 Mg/0.5 Mg (3 Ml) Ud) 3 ml INH RQ4 [facility] Last Admin: 08/15/18 07:07 Dose: 3 ml Alendronate Sodium (Fosamax) 70 mg PO FRI [facility] Last Admin: 08/14/18 09:25 Dose: 70 mg Amlodipine Besylate (Norvasc) 5 mg PO DAILY [facility] Last Admin: 08/15/18 10:00 Dose: 5 mg Aspirin (Aspirin) 325 mg PO DAILY [facility] Last Admin: 08/15/18 10:02 Dose: 325 mg Atorvastatin Calcium (Lipitor) 40 mg PO HS [facility] Last Admin: 08/14/18 22:01 Dose: 40 mg Azithromycin (Zithromax) 500 mg PO DAILY [facility] Last Admin: 08/15/18 09:58 Dose: 500 mg Budesonide (Pulmicort Respules) 0.25 mg IH Q12 [facility] Last Admin: 08/14/18 08:09 Dose: 0.25 mg Carvedilol (Coreg) 3.125 mg PO Q12 [facility] Last Admin: 08/15/18 10:00 Dose: 3.125 mg Clopidogrel Bisulfate (Plavix) 75 mg PO DAILY [facility] Last Admin: 08/15/18 10:00 Dose: 75 mg Docusate Sodium (Colace) 100 mg PO BID [facility] Last Admin: 08/15/18 09:59 Dose: 100 mg Enalapril Maleate (Vasotec) 20 mg PO DAILY [facility] Last Admin: 08/15/18 09:59 Dose: 20 mg Enoxaparin Sodium (Lovenox) 30 mg SC DAILY [facility]; Protocol Last Admin: 08/15/18 09:59 Dose: 30 mg Fluticasone Propionate (Flonase) 1 spr LUIS BID [facility] Last Admin: 08/15/18 09:58 Dose: 1 spr Furosemide (Lasix) 20 mg PO DAILY [facility] Last Admin: 08/14/18 09:20 Dose: 20 mg Cefepime HCl 2 gm/ Sodium (Chloride) 100 mls @ 100 mls/hr IVPB Q8H [facility]; Protocol Last Admin: 08/15/18 03:20 Dose: 100 mls/hr Lorazepam (Ativan) 0.5 mg PO DAILY [facility] Last Admin: 08/15/18 10:02 Dose: 0.5 mg Magnesium Hydroxide (Milk Of Magnesia) 30 ml PO DAILY PRN PRN Reason: Constipation Metformin HCl (Glucophage) 500 mg PO BID [facility] Last Admin: 08/15/18 10:00 Dose: 500 mg Methylprednisolone (Solu-Medrol) 40 mg IVP Q8H [facility] Last Admin: 02/09/19 06:18 Dose: 40 mg Montelukast Sodium (Singulair) 10 mg PO HS [facility] Last Admin: 08/14/18 22:01 Dose: 10 mg Multivitamins/Minerals (Therapeutic-M Tab) 1 tab PO DAILY [facility] Last Admin: 08/15/18 09:59 Dose: 1 tab Pantoprazole Sodium (Protonix Ec Tab) 40 mg PO DAILY [facility] Last Admin: 08/15/18 09:59 Dose: 40 mg Physical Exam - Additional Findings Additional findings: Sitting upright in bed, not in acute distress. Appears slightly agitated at times, but follows commands. No cyanosis or dependant edema, extremities are warm to touch. Pharynx is pink and moist w/o exudate. Nares are patent bilaterally w/o bleeding. Neck is supple and trachea is midline. Dullness to percussion posteriorly in bases, left > right. Breath sounds are diminished bilaterally, more so in left base. No audible wheezes or bronchial breathing. Heart sounds are distant and tachy ~ 100 BPM. Abdomen is soft and non-tender. Results - Vital Signs Recent Vital Signs: Last Vital Signs Temp 98.1 F 08/15/18 08:01 Pulse 106 H 08/15/18 08:01 Resp 18 08/15/18 08:01 BP 104/68 08/15/18 08:01 Pulse Ox 95 08/15/18 08:01 - Labs Result Diagrams: 08/16/18 10:00 08/16/18 10:00 Labs: Laboratory Results - last 24 hr 08/14/18 08/14/18 08/14/18 10:48 10:48 10:48 WBC 9.2 RBC 2.67 L Hgb 8.8 L Hct 26.1 L MCV 97.5 MCH 33.1 H MCHC 33.9 RDW 16.6 H Plt Count 243 Sodium 129 L Potassium 4.1 Chloride 89 L Carbon Dioxide 25 Anion Gap 19 BUN 25 H Creatinine 0.5 L Est GFR ( Amer) > 60 Est GFR (Non-Af Amer) > 60 POC Glucose (mg/dL) Random Glucose 185 H Lactic Acid 3.3 H Calcium 7.7 L Phosphorus 3.3 Magnesium 2.3 Total Bilirubin 0.7 AST 215 H ALT 176 H Alkaline Phosphatase 196 H Troponin I Total Protein 6.0 L Albumin 3.5 Globulin 2.6 Albumin/Globulin Ratio 1.4 Urine Color Urine Clarity Urine pH Ur Specific [place] Urine Protein Urine Glucose (UA) Urine Ketones Urine Blood Urine Nitrate Urine Bilirubin Urine Urobilinogen Ur Leukocyte Esterase Urine RBC (Auto) Urine Microscopic WBC Ur Squamous Epith Cells Hyaline Casts Urine Osmolality Ur Random Creatinine Ur Random Sodium 08/14/18 08/14/18 08/14/18 11:00 12:34 15:26 WBC RBC Hgb Hct MCV MCH MCHC RDW Plt Count Sodium Potassium Chloride Carbon Dioxide Anion Gap BUN Creatinine Est GFR ( Amer) Est GFR (Non-Af Amer) POC Glucose (mg/dL) 201 H Random Glucose Lactic Acid Calcium Phosphorus Magnesium Total Bilirubin AST ALT Alkaline Phosphatase Troponin I 0.3270 H* Total Protein Albumin Globulin Albumin/Globulin Ratio Urine Color Urine Clarity Urine pH Ur Specific [place] Urine Protein Urine Glucose (UA) Urine Ketones Urine Blood Urine Nitrate Urine Bilirubin Urine Urobilinogen Ur Leukocyte Esterase Urine RBC (Auto) Urine Microscopic WBC Ur Squamous Epith Cells Hyaline Casts Urine Osmolality 595 Ur Random Creatinine 53.6 Ur Random Sodium 10 08/14/18 08/14/18 08/14/18 15:26 16:21 18:46 WBC RBC Hgb Hct MCV MCH MCHC RDW Plt Count Sodium 131 L Potassium 4.2 Chloride 90 L Carbon Dioxide 25 Anion Gap 20 BUN 27 H Creatinine 0.8 Est GFR ( Amer) > 60 Est GFR (Non-Af Amer) > 60 POC Glucose (mg/dL) 175 H Random Glucose 187 H Lactic Acid Calcium 7.7 L Phosphorus Magnesium Total Bilirubin AST ALT Alkaline Phosphatase Troponin I Total Protein Albumin Globulin Albumin/Globulin Ratio Urine Color Yellow Urine Clarity Cloudy Urine pH 6.0 Ur Specific [place] 1.021 Urine Protein 30 Urine Glucose (UA) Neg Urine Ketones Trace Urine Blood Negative Urine Nitrate Positive H Urine Bilirubin Negative Urine Urobilinogen 0.2-1.0 Ur Leukocyte Esterase Neg Urine RBC (Auto) 3 Urine Microscopic WBC 5 Ur Squamous Epith Cells 1 Hyaline Casts 11-20 H Urine Osmolality Ur Random Creatinine Ur Random Sodium 08/14/18 08/15/18 08/15/18 21:22 04:30 05:22 WBC RBC Hgb Hct MCV MCH MCHC RDW Plt Count Sodium 132 Potassium 4.0 Chloride 93 L Carbon Dioxide 26 Anion Gap 17 BUN 30 H Creatinine 0.7 Est GFR ( Amer) > 60 Est GFR (Non-Af Amer) > 60 POC Glucose (mg/dL) 196 H 169 H Random Glucose 181 H Lactic Acid Calcium 8.0 L Phosphorus Magnesium Total Bilirubin AST ALT Alkaline Phosphatase Troponin I Total Protein Albumin Globulin Albumin/Globulin Ratio Urine Color Urine Clarity Urine pH Ur Specific [place] Urine Protein Urine Glucose (UA) Urine Ketones Urine Blood Urine Nitrate Urine Bilirubin Urine Urobilinogen Ur Leukocyte Esterase Urine RBC (Auto) Urine Microscopic WBC Ur Squamous Epith Cells Hyaline Casts Urine Osmolality Ur Random Creatinine Ur Random Sodium Assessment & Plan (1) NSTEMI (non-ST elevated myocardial infarction) Status: Acute Priority: High (2) Pneumonia Assessment and Plan: Continue antibiotic therapy. Procalcitonin level requested. Will reduce dosing of cefepime if procalcitonin is not elevated. Aerosol therapy with bronchodilator and mucolytic. Sputum for culture and cytology. Status: Acute Priority: High (3) Bronchial asthma Assessment and Plan: More selective beta blockade would be advised in light of Bronchial Asthma history. Status: Chronic Priority: High - Date & Time Date: 08/15/18 Time: 10:39
[2018-08-15] MEDS ORDERED: Albuterol 0.083% Inhal Sol (2.5 mg/3 mL) UD INH PRN (10:40)
[2018-08-15] MEDS ORDERED: Sodium Chloride 3% for Inhalation 4 ML VIAL.NEB IH PRN (10:42)
[2018-08-15] MEDS: Budesonide 0.25 mg/2 ml Inhal Susp UD IH SCH ×2 (11:07→19:13)
--- NOTE | 2018-08-15 12:01 | CP.PCM.PN ---
Subjective - Date & Time of Evaluation Date of Evaluation: 08/15/18 Time of Evaluation: 12:00 - Subjective Subjective: RENAL s: seen and examined agitated pe: vs as below gen: nad sclera: anicteric op: clear neck: supple cv: +s1+s2 no rub abd: soft nt nd ] lungs :reduced at bases abd: soft nt nd ext: no edema neuro: agitated unable to perform full exam psych: agitated skin no rash imp: hyponatremia / dementia/ copd plan: na stable today will monitor holding samsca for now Objective - Vital Signs/Intake and Output Vital Signs (last 24 hours): Temp Pulse Resp BP Pulse Ox 98.1 F 106 H 18 104/68 95 08/15/18 08:01 08/15/18 08:01 08/15/18 08:01 08/15/18 08:01 08/15/18 08:01 - Medications Medications: Current Medications Acetaminophen (Tylenol 325mg Tab) 650 mg PO Q6 PRN PRN Reason: Pain, moderate (4-7) Acetylcysteine (Acetylcysteine 20%) 2 ml INH RBID [facility] Albuterol Sulfate (Albuterol 0.083% Inhal Autumn (2.5 Mg/3 Ml) Ud) 2.5 mg INH RQ4 PRN PRN Reason: Shortness of Breath Albuterol/Ipratropium (Duoneb 3 Mg/0.5 Mg (3 Ml) Ud) 3 ml INH RQID [facility] Last Admin: 08/15/18 11:05 Dose: 3 ml Alendronate Sodium (Fosamax) 70 mg PO FRI [facility] Last Admin: 08/14/18 09:25 Dose: 70 mg Amlodipine Besylate (Norvasc) 5 mg PO DAILY [facility] Last Admin: 08/15/18 10:00 Dose: 5 mg Aspirin (Aspirin) 325 mg PO DAILY [facility] Last Admin: 08/15/18 10:02 Dose: 325 mg Atorvastatin Calcium (Lipitor) 40 mg PO HS [facility] Last Admin: 08/14/18 22:01 Dose: 40 mg Azithromycin (Zithromax) 500 mg PO DAILY [facility] Last Admin: 08/15/18 09:58 Dose: 500 mg Budesonide (Pulmicort Respules) 0.25 mg IH Q12 [facility] Last Admin: 08/15/18 11:07 Dose: 0.25 mg Carvedilol (Coreg) 3.125 mg PO Q12 [facility] Last Admin: 08/15/18 10:00 Dose: 3.125 mg Clopidogrel Bisulfate (Plavix) 75 mg PO DAILY [facility] Last Admin: 08/15/18 10:00 Dose: 75 mg Docusate Sodium (Colace) 100 mg PO BID [facility] Last Admin: 08/15/18 09:59 Dose: 100 mg Enalapril Maleate (Vasotec) 20 mg PO DAILY [facility] Last Admin: 08/15/18 09:59 Dose: 20 mg Enoxaparin Sodium (Lovenox) 30 mg SC DAILY [facility]; Protocol Last Admin: 08/15/18 09:59 Dose: 30 mg Fluticasone Propionate (Flonase) 1 spr LUIS BID [facility] Last Admin: 08/15/18 09:58 Dose: 1 spr Furosemide (Lasix) 20 mg PO DAILY [facility] Last Admin: 08/14/18 09:20 Dose: 20 mg Cefepime HCl 2 gm/ Sodium (Chloride) 100 mls @ 100 mls/hr IVPB Q8H [facility]; Protocol Last Admin: 08/15/18 03:20 Dose: 100 mls/hr Lorazepam (Ativan) 0.5 mg PO DAILY [facility] Last Admin: 08/15/18 10:02 Dose: 0.5 mg Magnesium Hydroxide (Milk Of Magnesia) 30 ml PO DAILY PRN PRN Reason: Constipation Metformin HCl (Glucophage) 500 mg PO BID [facility] Last Admin: 08/15/18 10:00 Dose: 500 mg Methylprednisolone (Solu-Medrol) 40 mg IVP Q8H [facility] Last Admin: 08/15/18 06:18 Dose: 40 mg Montelukast Sodium (Singulair) 10 mg PO HS [facility] Last Admin: 08/14/18 22:01 Dose: 10 mg Multivitamins/Minerals (Therapeutic-M Tab) 1 tab PO DAILY [facility] Last Admin: 08/15/18 09:59 Dose: 1 tab Pantoprazole Sodium (Protonix Ec Tab) 40 mg PO DAILY [facility] Last Admin: 08/15/18 09:59 Dose: 40 mg - Labs Labs: 08/14/18 10:48 08/15/18 04:30
[2018-08-15] MEDS: Acetylcysteine 20% Inhal Soln (4ml) INH SCH (19:12)
--- NOTE | 2018-08-15 23:22 | CP.PCM.PN ---
Subjective - Date & Time of Evaluation Date of Evaluation: 08/15/18 Time of Evaluation: 22:22 - Subjective Subjective: Pulmonary and Nephrology notes appreciated Objective - Vital Signs/Intake and Output Vital Signs (last 24 hours): Temp Pulse Resp BP Pulse Ox 98.5 F 108 H 16 119/71 96 08/15/18 19:55 08/15/18 21:03 08/15/18 19:55 08/15/18 21:03 08/15/18 19:55 - Medications Medications: Current Medications Acetaminophen (Tylenol 325mg Tab) 650 mg PO Q6 PRN PRN Reason: Pain, moderate (4-7) Acetylcysteine (Acetylcysteine 20%) 2 ml INH RBID [facility] Last Admin: 08/15/18 19:12 Dose: 2 ml Albuterol Sulfate (Albuterol 0.083% Inhal Autumn (2.5 Mg/3 Ml) Ud) 2.5 mg INH RQ4 PRN PRN Reason: Shortness of Breath Albuterol/Ipratropium (Duoneb 3 Mg/0.5 Mg (3 Ml) Ud) 3 ml INH RQID [facility] Last Admin: 08/15/18 19:12 Dose: 3 ml Alendronate Sodium (Fosamax) 70 mg PO FRI [facility] Last Admin: 08/14/18 09:25 Dose: 70 mg Amlodipine Besylate (Norvasc) 5 mg PO DAILY [facility] Last Admin: 08/15/18 10:00 Dose: 5 mg Aspirin (Aspirin) 325 mg PO DAILY [facility] Last Admin: 08/15/18 10:02 Dose: 325 mg Atorvastatin Calcium (Lipitor) 40 mg PO HS [facility] Last Admin: 08/15/18 21:04 Dose: 40 mg Azithromycin (Zithromax) 500 mg PO DAILY [facility] Last Admin: 08/15/18 09:58 Dose: 500 mg Budesonide (Pulmicort Respules) 0.25 mg IH Q12 [facility] Last Admin: 08/15/18 19:13 Dose: 0.25 mg Carvedilol (Coreg) 3.125 mg PO Q12 [facility] Last Admin: 08/15/18 21:03 Dose: 3.125 mg Clopidogrel Bisulfate (Plavix) 75 mg PO DAILY [facility] Last Admin: 08/15/18 10:00 Dose: 75 mg Docusate Sodium (Colace) 100 mg PO BID [facility] Last Admin: 08/15/18 09:59 Dose: 100 mg Enalapril Maleate (Vasotec) 20 mg PO DAILY [facility] Last Admin: 08/15/18 09:59 Dose: 20 mg Enoxaparin Sodium (Lovenox) 30 mg SC DAILY [facility]; Protocol Last Admin: 08/15/18 09:59 Dose: 30 mg Fluticasone Propionate (Flonase) 1 spr LUIS BID [facility] Last Admin: 08/15/18 09:58 Dose: 1 spr Furosemide (Lasix) 20 mg PO DAILY [facility] Last Admin: 08/14/18 09:20 Dose: 20 mg Cefepime HCl 2 gm/ Sodium (Chloride) 100 mls @ 100 mls/hr IVPB Q8H [facility]; Protocol Last Admin: 08/15/18 20:00 Dose: 100 mls/hr Lorazepam (Ativan) 0.5 mg PO DAILY [facility] Last Admin: 08/15/18 10:02 Dose: 0.5 mg Magnesium Hydroxide (Milk Of Magnesia) 30 ml PO DAILY PRN PRN Reason: Constipation Metformin HCl (Glucophage) 500 mg PO BID [facility] Last Admin: 08/15/18 10:00 Dose: 500 mg Methylprednisolone (Solu-Medrol) 40 mg IVP Q8H [facility] Last Admin: 08/15/18 22:24 Dose: 40 mg Montelukast Sodium (Singulair) 10 mg PO HS [facility] Last Admin: 08/15/18 21:03 Dose: 10 mg Multivitamins/Minerals (Therapeutic-M Tab) 1 tab PO DAILY [facility] Last Admin: 08/15/18 09:59 Dose: 1 tab Pantoprazole Sodium (Protonix Ec Tab) 40 mg PO DAILY [facility] Last Admin: 08/15/18 09:59 Dose: 40 mg - Labs Labs: 08/14/18 10:48 08/15/18 04:30 - Respiratory Exam Respiratory Exam: NORMAL BREATHING PATTERN - Cardiovascular Exam Cardiovascular Exam: REGULAR RHYTHM - GI/Abdominal Exam GI & Abdominal Exam: Normal Bowel Sounds Assessment and Plan - Assessment and Plan (Free Text) Assessment: S/P Acute ant wall MS New NSTEMI + CE new O2 ASA Plavix JAYESH B-[place] Nitrates Lasix Norvasc Cardiology Last Echo good LV fxn SOB COPD/ Asthma CAP?? 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 Nephrology ?? Samsca Anemia Hx Rectal bleeding stable Hx rectal prolapse Hx hemorrhoids Refusing w/u S/P Fall etiol?? 2 to above? Chronic anxiety Ativan
[2018-08-16] MEDS: Cefepime 2 GM in Sodium Chloride 0.9% 100 ML IVPB SCH ×3 (03:05→18:31)
[2018-08-16] MEDS: Acetylcysteine 20% Inhal Soln (4ml) INH SCH ×2 (07:28→19:16)
[2018-08-16] MEDS: Albuterol-Ipratrop 3 mg / 0.5 (3 ml) UD INH SCH ×4 (07:28→19:15)
[2018-08-16] MEDS: Budesonide 0.25 mg/2 ml Inhal Susp UD IH SCH ×2 (07:28)
[2018-08-16] MEDS: Enoxaparin 30 mg Syringe SC SCH (08:50)
[2018-08-16] MEDS: MethylPREDNISolone 40 mg Vial IVP SCH ×2 (08:51→21:10)
[2018-08-16] MEDS: Pantoprazole 40 mg EC Tab PO SCH (08:53)
[2018-08-16] MEDS: Multivitamin With Minerals Tab PO SCH (08:53)
[2018-08-16 10:42] LABS: HEMOGLOBIN 8.6 g/dL (12.0-16.0); MEAN CELL VOLUME 98.9 fl (81.0-99.0); MEAN CORPUSCULAR HEMOGLOBIN 32.4 pg (27.0-31.0); MEAN CORPUSCULAR HGB CONC 32.8 g/dL (33.0-37.0); RBC 2.65 Mil/uL (3.80-5.20); RED CELL DISTRIBUTION WIDTH 17.1 % (11.5-14.5); WHITE BLOOD COUNT 14.6 K/uL (4.8-10.8)
[2018-08-16 10:44] LABS: ALB/GLOB RATIO 1.4 (1.0-2.1); ALBUMIN 3.4 g/dL (3.5-5.0); ALT/SGPT 187 U/L (9-52); AMYLASE 152 U/L (30-110); AST/SGOT 208 U/L (14-36); BLOOD UREA NITROGEN 30 mg/dl (7-17); CALCIUM 8.2 mg/dL (8.4-10.2); GFR NON-AFRICAN AMERICAN > 60; LIPASE 205 U/L (23-300)
--- NOTE | 2018-08-16 12:21 | CP.PCM.PN ---
Subjective - Date & Time of Evaluation Date of Evaluation: 08/16/18 Time of Evaluation: 10:30 - Subjective Subjective: DENIES CHEST PAIN OR PALPITATIONS LESS SOB Objective - Vital Signs/Intake and Output Vital Signs (last 24 hours): Temp Pulse Resp BP Pulse Ox 97.8 F 114 H 18 120/75 96 08/16/18 12:05 08/16/18 12:05 08/16/18 12:05 08/16/18 12:05 08/16/18 12:05 - Medications Medications: Current Medications Acetaminophen (Tylenol 325mg Tab) 650 mg PO Q6 PRN PRN Reason: Pain, moderate (4-7) Acetylcysteine (Acetylcysteine 20%) 2 ml INH RBID [facility] Last Admin: 08/16/18 07:28 Dose: 2 ml Albuterol Sulfate (Albuterol 0.083% Inhal Autumn (2.5 Mg/3 Ml) Ud) 2.5 mg INH RQ4 PRN PRN Reason: Shortness of Breath Albuterol/Ipratropium (Duoneb 3 Mg/0.5 Mg (3 Ml) Ud) 3 ml INH RQID [facility] Last Admin: 08/16/18 11:01 Dose: 3 ml Alendronate Sodium (Fosamax) 70 mg PO FRI [facility] Last Admin: 08/14/18 09:25 Dose: 70 mg Amlodipine Besylate (Norvasc) 5 mg PO DAILY [facility] Last Admin: 08/16/18 08:52 Dose: 5 mg Aspirin (Aspirin) 325 mg PO DAILY [facility] Last Admin: 08/16/18 08:51 Dose: 325 mg Atorvastatin Calcium (Lipitor) 40 mg PO HS [facility] Last Admin: 08/15/18 21:04 Dose: 40 mg Azithromycin (Zithromax) 500 mg PO DAILY [facility] Last Admin: 08/16/18 08:52 Dose: 500 mg Carvedilol (Coreg) 3.125 mg PO Q12 [facility] Last Admin: 08/16/18 08:52 Dose: 3.125 mg Clopidogrel Bisulfate (Plavix) 75 mg PO DAILY [facility] Last Admin: 08/16/18 08:52 Dose: 75 mg Docusate Sodium (Colace) 100 mg PO BID [facility] Last Admin: 08/16/18 08:52 Dose: 100 mg Enalapril Maleate (Vasotec) 20 mg PO DAILY [facility] Last Admin: 08/16/18 08:53 Dose: 20 mg Enoxaparin Sodium (Lovenox) 30 mg SC DAILY [facility]; Protocol Last Admin: 08/16/18 08:50 Dose: 30 mg Fluticasone Propionate (Flonase) 1 spr LUIS BID [facility] Last Admin: 08/16/18 08:50 Dose: 1 spr Furosemide (Lasix) 20 mg PO DAILY [facility] Last Admin: 08/14/18 09:20 Dose: 20 mg Cefepime HCl 2 gm/ Sodium (Chloride) 100 mls @ 100 mls/hr IVPB Q8H [facility]; Protocol Last Admin: 08/16/18 03:05 Dose: 100 mls/hr Lorazepam (Ativan) 0.5 mg PO DAILY [facility] Last Admin: 08/16/18 08:51 Dose: 0.5 mg Magnesium Hydroxide (Milk Of Magnesia) 30 ml PO DAILY PRN PRN Reason: Constipation Metformin HCl (Glucophage) 500 mg PO BID [facility] Last Admin: 08/16/18 08:52 Dose: 500 mg Methylprednisolone (Solu-Medrol) 40 mg IVP Q12H [facility] Montelukast Sodium (Singulair) 10 mg PO HS [facility] Last Admin: 08/15/18 21:03 Dose: 10 mg Multivitamins/Minerals (Therapeutic-M Tab) 1 tab PO DAILY [facility] Last Admin: 08/16/18 08:53 Dose: 1 tab Pantoprazole Sodium (Protonix Ec Tab) 40 mg PO DAILY [facility] Last Admin: 08/16/18 08:53 Dose: 40 mg - Labs Labs: 08/16/18 10:00 08/16/18 10:00 - Respiratory Exam Respiratory Exam: Rales - Cardiovascular Exam Cardiovascular Exam: Tachycardia, Irregular Rhythm, +S1, +S2 - Extremities Exam Additional comments: NO LE EDEMA - Additional Findings Additional findings: EKG OF 08/14/18 ATRIAL FIBRILLATION WITH RVR AND NSSTT 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
[2018-08-16] MEDS ORDERED: Tolvaptan 15 MG TAB PO ONE (12:45)
--- NOTE | 2018-08-16 12:46 | CP.PCM.PN ---
Subjective - Date & Time of Evaluation Date of Evaluation: 08/16/18 Time of Evaluation: 12:45 - Subjective Subjective: RENAL s: seen and examined pe: vs as below gen: nad sclera: anicteric op: clear neck: supple cv: +s1+s2 no rub abd: soft nt nd ] lungs :reduced at bases abd: soft nt nd ext: no edema neuro: following commands psych: milldy agitated skin no rash imp: hyponatremia / dementia/ copd plan: na starting to trend down again today, will give dose of tolvaptan again Objective - Vital Signs/Intake and Output Vital Signs (last 24 hours): Temp Pulse Resp BP Pulse Ox 97.8 F 114 H 18 120/75 96 08/16/18 12:05 08/16/18 12:05 08/16/18 12:05 08/16/18 12:05 08/16/18 12:05 - Medications Medications: Current Medications Acetaminophen (Tylenol 325mg Tab) 650 mg PO Q6 PRN PRN Reason: Pain, moderate (4-7) Acetylcysteine (Acetylcysteine 20%) 2 ml INH RBID [facility] Last Admin: 08/16/18 07:28 Dose: 2 ml Albuterol Sulfate (Albuterol 0.083% Inhal Autumn (2.5 Mg/3 Ml) Ud) 2.5 mg INH RQ4 PRN PRN Reason: Shortness of Breath Albuterol/Ipratropium (Duoneb 3 Mg/0.5 Mg (3 Ml) Ud) 3 ml INH RQID [facility] Last Admin: 08/16/18 11:01 Dose: 3 ml Alendronate Sodium (Fosamax) 70 mg PO FRI [facility] Last Admin: 08/14/18 09:25 Dose: 70 mg Amlodipine Besylate (Norvasc) 5 mg PO DAILY [facility] Last Admin: 08/16/18 08:52 Dose: 5 mg Aspirin (Aspirin) 325 mg PO DAILY [facility] Last Admin: 08/16/18 08:51 Dose: 325 mg Atorvastatin Calcium (Lipitor) 40 mg PO HS [facility] Last Admin: 08/15/18 21:04 Dose: 40 mg Azithromycin (Zithromax) 500 mg PO DAILY [facility] Last Admin: 08/16/18 08:52 Dose: 500 mg Carvedilol (Coreg) 6.25 mg PO Q12 [facility] Clopidogrel Bisulfate (Plavix) 75 mg PO DAILY [facility] Last Admin: 08/16/18 08:52 Dose: 75 mg Docusate Sodium (Colace) 100 mg PO BID [facility] Last Admin: 08/16/18 08:52 Dose: 100 mg Enalapril Maleate (Vasotec) 20 mg PO DAILY [facility] Last Admin: 08/16/18 08:53 Dose: 20 mg Enoxaparin Sodium (Lovenox) 30 mg SC DAILY [facility]; Protocol Last Admin: 08/16/18 08:50 Dose: 30 mg Fluticasone Propionate (Flonase) 1 spr LUIS BID [facility] Last Admin: 08/16/18 08:50 Dose: 1 spr Furosemide (Lasix) 20 mg PO DAILY [facility] Last Admin: 08/14/18 09:20 Dose: 20 mg Cefepime HCl 2 gm/ Sodium (Chloride) 100 mls @ 100 mls/hr IVPB Q8H [facility]; Protocol Last Admin: 08/16/18 03:05 Dose: 100 mls/hr Lorazepam (Ativan) 0.5 mg PO DAILY [facility] Last Admin: 08/16/18 08:51 Dose: 0.5 mg Magnesium Hydroxide (Milk Of Magnesia) 30 ml PO DAILY PRN PRN Reason: Constipation Metformin HCl (Glucophage) 500 mg PO BID [facility] Last Admin: 08/16/18 08:52 Dose: 500 mg Methylprednisolone (Solu-Medrol) 40 mg IVP Q12H [facility] Montelukast Sodium (Singulair) 10 mg PO HS [facility] Last Admin: 08/15/18 21:03 Dose: 10 mg Multivitamins/Minerals (Therapeutic-M Tab) 1 tab PO DAILY [facility] Last Admin: 08/16/18 08:53 Dose: 1 tab Pantoprazole Sodium (Protonix Ec Tab) 40 mg PO DAILY [facility] Last Admin: 08/16/18 08:53 Dose: 40 mg - Labs Labs: 08/16/18 10:00 08/16/18 10:00
--- NOTE | 2018-08-16 17:05 | US ---
Date of service: 08/16/2018 HISTORY: elevated liver enzymes COMPARISON: None. TECHNIQUE: Sonographic evaluation of the abdomen. FINDINGS: LIVER: Measures 17.1 cm. Heterogeneous echotexture. Complex right hepatic lobe structure measuring 2.9 x 2.5 x 2.8 cm. No intrahepatic bile duct dilatation. GALLBLADDER: Contracted gallbladder with cholelithiasis. COMMON BILE DUCT: Measures 10 mm. Prominent. PANCREAS: Unremarkable as visualized. No mass. No ductal dilatation. RIGHT KIDNEY: Measures 9.3 x 3.2 x 5.3cm. Normal echogenicity. No calculus, mass, or hydronephrosis. LEFT KIDNEY: Measures 10.2 x 5.1 x 4.4cm. Normal echogenicity. No calculus, mass, or hydronephrosis. SPLEEN: Normal in size and contour. No mass. AORTA: No aneurysmal dilatation. IVC: Unremarkable. OTHER FINDINGS: None. IMPRESSION: Heterogeneous liver with 2.9 cm complex lesion in the right hepatic lobe. This is nonspecific but neoplasia not excluded. Multiphasic contrast-enhanced CT/MRI of the liver can be obtained for further characterization on a nonemergent/outpatient basis as clinically warranted. Calcified cholelithiasis without sonographic evidence for acute cholecystitis. Prominent/dilated CBD which may be age-related, but choledocholithiasis cannot be entirely excluded.
--- NOTE | 2018-08-16 17:11 | CP.PCM.PN ---
Subjective - Date & Time of Evaluation Date of Evaluation: 08/16/18 Time of Evaluation: 22:22 - Subjective Subjective: Elevated LFT's WBC 14 k US ?? Objective - Vital Signs/Intake and Output Vital Signs (last 24 hours): Temp Pulse Resp BP Pulse Ox 97.5 F L 101 H 20 103/65 99 08/16/18 16:23 08/16/18 16:23 08/16/18 16:23 08/16/18 16:23 08/16/18 16:23 - Medications Medications: Current Medications Acetaminophen (Tylenol 325mg Tab) 650 mg PO Q6 PRN PRN Reason: Pain, moderate (4-7) Acetylcysteine (Acetylcysteine 20%) 2 ml INH RBID [facility] Last Admin: 08/16/18 07:28 Dose: 2 ml Albuterol Sulfate (Albuterol 0.083% Inhal Autumn (2.5 Mg/3 Ml) Ud) 2.5 mg INH RQ4 PRN PRN Reason: Shortness of Breath Albuterol/Ipratropium (Duoneb 3 Mg/0.5 Mg (3 Ml) Ud) 3 ml INH RQID [facility] Last Admin: 08/16/18 16:00 Dose: Not Given Alendronate Sodium (Fosamax) 70 mg PO FRI [facility] Last Admin: 08/14/18 09:25 Dose: 70 mg Amlodipine Besylate (Norvasc) 5 mg PO DAILY [facility] Last Admin: 08/16/18 08:52 Dose: 5 mg Aspirin (Aspirin) 325 mg PO DAILY [facility] Last Admin: 08/16/18 08:51 Dose: 325 mg Atorvastatin Calcium (Lipitor) 40 mg PO HS [facility] Last Admin: 08/15/18 21:04 Dose: 40 mg Azithromycin (Zithromax) 500 mg PO DAILY [facility] Last Admin: 08/16/18 08:52 Dose: 500 mg Carvedilol (Coreg) 6.25 mg PO Q12 [facility] Clopidogrel Bisulfate (Plavix) 75 mg PO DAILY [facility] Last Admin: 08/16/18 08:52 Dose: 75 mg Docusate Sodium (Colace) 100 mg PO BID [facility] Last Admin: 08/16/18 08:52 Dose: 100 mg Enalapril Maleate (Vasotec) 20 mg PO DAILY [facility] Last Admin: 08/16/18 08:53 Dose: 20 mg Enoxaparin Sodium (Lovenox) 30 mg SC DAILY [facility]; Protocol Last Admin: 08/16/18 08:50 Dose: 30 mg Fluticasone Propionate (Flonase) 1 spr LUIS BID [facility] Last Admin: 08/16/18 08:50 Dose: 1 spr Furosemide (Lasix) 20 mg PO DAILY [facility] Last Admin: 08/14/18 09:20 Dose: 20 mg Cefepime HCl 2 gm/ Sodium (Chloride) 100 mls @ 100 mls/hr IVPB Q8H [facility]; Protocol Last Admin: 08/16/18 13:17 Dose: 100 mls/hr Lorazepam (Ativan) 0.5 mg PO DAILY [facility] Last Admin: 08/16/18 08:51 Dose: 0.5 mg Magnesium Hydroxide (Milk Of Magnesia) 30 ml PO DAILY PRN PRN Reason: Constipation Metformin HCl (Glucophage) 500 mg PO BID [facility] Last Admin: 08/16/18 08:52 Dose: 500 mg Methylprednisolone (Solu-Medrol) 40 mg IVP Q12H [facility] Montelukast Sodium (Singulair) 10 mg PO HS [facility] Last Admin: 08/15/18 21:03 Dose: 10 mg Multivitamins/Minerals (Therapeutic-M Tab) 1 tab PO DAILY [facility] Last Admin: 08/16/18 08:53 Dose: 1 tab Pantoprazole Sodium (Protonix Ec Tab) 40 mg PO DAILY [facility] Last Admin: 08/16/18 08:53 Dose: 40 mg - Labs Labs: 08/16/18 10:00 08/16/18 10:00 - Respiratory Exam Respiratory Exam: NORMAL BREATHING PATTERN - Cardiovascular Exam Cardiovascular Exam: REGULAR RHYTHM - GI/Abdominal Exam GI & Abdominal Exam: Normal Bowel Sounds Assessment and Plan - Assessment and Plan (Free Text) Assessment: Elevated LFT's US ?? GI consult New NSTEMI + CE new S/P Acute ant wall NC O2 ASA Plavix JAYESH B-annia Nitrates Lasix Norvasc Cardiology Last Echo good LV fxn SOB COPD/ Asthma CAP?? 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 Samsca Anemia Hx Rectal bleeding stable Hx rectal prolapse Hx hemorrhoids Refusing w/u S/P Fall etiol?? 2 to above? Chronic anxiety Ativan
[2018-08-16] MEDS ORDERED: methylPREDNISolone 40 MG in Sodium Chloride 0.9% 50 ML IV SCH (21:00)
[2018-08-17] MEDS: Cefepime 2 GM in Sodium Chloride 0.9% 100 ML IVPB SCH ×3 (02:22→20:39)
[2018-08-17] MEDS: Acetylcysteine 20% Inhal Soln (4ml) INH SCH ×2 (07:35→19:19)
[2018-08-17] MEDS: Albuterol-Ipratrop 3 mg / 0.5 (3 ml) UD INH SCH ×4 (07:35→19:18)
[2018-08-17] MEDS: Enoxaparin 30 mg Syringe SC SCH (09:13)
[2018-08-17] MEDS: Pantoprazole 40 mg EC Tab PO SCH (09:15)
[2018-08-17] MEDS: Multivitamin With Minerals Tab PO SCH (09:16)
[2018-08-17] MEDS: MethylPREDNISolone 40 mg Vial IVP SCH ×2 (09:16→21:10)
--- NOTE | 2018-08-17 09:43 | CP.PCM.PN ---
Subjective - Date & Time of Evaluation Date of Evaluation: 08/17/18 Time of Evaluation: 08:30 - Subjective Subjective: NO CHEST Objective - Vital Signs/Intake and Output Vital Signs (last 24 hours): Temp Pulse Resp BP Pulse Ox 97.7 F 128 H 18 121/72 96 08/17/18 08:04 08/17/18 09:14 08/17/18 08:04 08/17/18 09:14 08/17/18 08:04 - Medications Medications: Current Medications Acetaminophen (Tylenol 325mg Tab) 650 mg PO Q6 PRN PRN Reason: Pain, moderate (4-7) Acetylcysteine (Acetylcysteine 20%) 2 ml INH RBID [facility] Last Admin: 08/17/18 07:35 Dose: 2 ml Albuterol Sulfate (Albuterol 0.083% Inhal Autumn (2.5 Mg/3 Ml) Ud) 2.5 mg INH RQ4 PRN PRN Reason: Shortness of Breath Albuterol/Ipratropium (Duoneb 3 Mg/0.5 Mg (3 Ml) Ud) 3 ml INH RQID [facility] Last Admin: 08/17/18 07:35 Dose: 3 ml Alendronate Sodium (Fosamax) 70 mg PO FRI [facility] Last Admin: 08/14/18 09:25 Dose: 70 mg Amlodipine Besylate (Norvasc) 5 mg PO DAILY [facility] Last Admin: 08/17/18 09:14 Dose: 5 mg Aspirin (Aspirin) 325 mg PO DAILY [facility] Last Admin: 08/16/18 08:51 Dose: 325 mg Atorvastatin Calcium (Lipitor) 40 mg PO HS [facility] Last Admin: 08/16/18 21:10 Dose: 40 mg Azithromycin (Zithromax) 500 mg PO DAILY [facility] Last Admin: 08/17/18 09:16 Dose: 500 mg Carvedilol (Coreg) 6.25 mg PO Q12 [facility] Last Admin: 08/17/18 09:11 Dose: 6.25 mg Clopidogrel Bisulfate (Plavix) 75 mg PO DAILY [facility] Last Admin: 08/17/18 09:14 Dose: 75 mg Docusate Sodium (Colace) 100 mg PO BID [facility] Last Admin: 08/17/18 09:11 Dose: 100 mg Enalapril Maleate (Vasotec) 20 mg PO DAILY [facility] Last Admin: 08/17/18 09:17 Dose: 20 mg Fluticasone Propionate (Flonase) 1 spr LUIS BID [facility] Last Admin: 08/17/18 09:12 Dose: 1 spr Furosemide (Lasix) 20 mg PO DAILY [facility] Last Admin: 08/14/18 09:20 Dose: 20 mg Cefepime HCl 2 gm/ Sodium (Chloride) 100 mls @ 100 mls/hr IVPB Q8H [facility]; Protoc ol Last Admin: 08/17/18 02:22 Dose: 100 mls/hr Magnesium Hydroxide (Milk Of Magnesia) 30 ml PO DAILY PRN PRN Reason: Constipation Metformin HCl (Glucophage) 500 mg PO BID [facility] Last Admin: 08/17/18 09:13 Dose: 500 mg Methylprednisolone (Solu-Medrol) 40 mg IVP Q12H [facility] Last Admin: 08/17/18 09:16 Dose: 40 mg Montelukast Sodium (Singulair) 10 mg PO HS [facility] Last Admin: 08/16/18 21:10 Dose: 10 mg Multivitamins/Minerals (Therapeutic-M Tab) 1 tab PO DAILY [facility] Last Admin: 08/17/18 09:16 Dose: 1 tab Pantoprazole Sodium (Protonix Ec Tab) 40 mg PO DAILY [facility] Last Admin: 08/17/18 09:15 Dose: 40 mg - Labs Labs: 08/16/18 10:00 08/16/18 10:00 - Respiratory Exam Respiratory Exam: Rales - Cardiovascular Exam Cardiovascular Exam: Irregular Rhythm, +S1, +S2 - Extremities Exam Additional comments: NO LE EDEMA - Additional Findings Additional findings: EKG ATRIAL FIBRILLATION WITH RATE OF 110 BPM Assessment and Plan - Assessment and Plan (Free Text) Assessment: NSTEMI ATRIAL FIBRILLATION WITH RAPID RATE HYPERTENSION HYPERLIPIDEMIA [employer]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
--- NOTE | 2018-08-17 09:48 | RAD ---
Date of service: 08/17/2018 HISTORY: pneumonia COMPARISON: 08/13/2018. FINDINGS: LUNGS: There is moderate pulmonary venous congestion. PLEURA: Small effusions. No pneumothorax. CARDIOVASCULAR: Mild cardiomegaly. There are aortic atherosclerotic calcifications present. OSSEOUS STRUCTURES: Within normal limits for the patient's age. VISUALIZED UPPER ABDOMEN: Normal. OTHER FINDINGS: None. IMPRESSION: Little interval change in presumable mild congestive heart failure.
[2018-08-17 10:55] LABS: MEAN CELL VOLUME 98.4 fl (81.0-99.0); MEAN CORPUSCULAR HEMOGLOBIN 32.1 pg (27.0-31.0); MEAN CORPUSCULAR HGB CONC 32.7 g/dL (33.0-37.0); RBC 2.76 Mil/uL (3.80-5.20); RED CELL DISTRIBUTION WIDTH 16.9 % (11.5-14.5)
[2018-08-17 10:58] LABS: HEMOGLOBIN 8.9 g/dL (12.0-16.0)
--- NOTE | 2018-08-17 10:59 | CP.PCM.PN ---
Subjective - Date & Time of Evaluation Date of Evaluation: 08/17/18 Time of Evaluation: 10:56 - Subjective Subjective: Seen earlier this morning on rounds in telemetry. Sitting upright in bed, appears anxious and frightened. Has occasional nonproductive cough. Denies any shortness of breath at rest. Vital signs appears stable but she is tachycardic. Chest x-ray done this morning suggests venous congestion in the left hemidiaphragm is not visible. Retrocardiac density is suggested. Hepatic ultrasound suggests a 2.9 cm complex lesion in the right lobe of the liver. LFTs are elevated. Neck is supple and trachea is midline. No palpable lymphadenopathy. No dullness on chest percussion anteriorly. Breath sounds are diminished on the right and absent in the left base. No audible wheezing. No bronchial breathing. Heart sounds are distant and the rhythm appears regular and is tachycardic. Chest x-ray suggests left pleural effusion and possible subsegmental atelectasis in the left lower lobe. Abdominal ultrasound shows a large complex lesion in the liver. LFTs are all elevated. Suggest CT scan of the chest abdomen and pelvis with oral and IV contrast if possible. Objective - Vital Signs/Intake and Output Vital Signs (last 24 hours): Temp Pulse Resp BP Pulse Ox 97.7 F 128 H 18 121/72 96 08/17/18 08:04 08/17/18 09:14 08/17/18 08:04 08/17/18 09:14 08/17/18 08:04 - Medications Medications: Current Medications Acetaminophen (Tylenol 325mg Tab) 650 mg PO Q6 PRN PRN Reason: Pain, moderate (4-7) Acetylcysteine (Acetylcysteine 20%) 2 ml INH RBID [facility] Last Admin: 08/17/18 07:35 Dose: 2 ml Albuterol Sulfate (Albuterol 0.083% Inhal Autunm (2.5 Mg/3 Ml) Ud) 2.5 mg INH RQ4 PRN PRN Reason: Shortness of Breath Albuterol/Ipratropium (Duoneb 3 Mg/0.5 Mg (3 Ml) Ud) 3 ml INH RQID [facility] Last Admin: 08/17/18 07:35 Dose: 3 ml Alendronate Sodium (Fosamax) 70 mg PO FRI [facility] Last Admin: 08/14/18 09:25 Dose: 70 mg Aspirin (Aspirin) 325 mg PO DAILY [facility] Last Admin: 08/17/18 10:15 Dose: 325 mg Atorvastatin Calcium (Lipitor) 40 mg PO HS [facility] Last Admin: 08/16/18 21:10 Dose: 40 mg Azithromycin (Zithromax) 500 mg PO DAILY [facility] Last Admin: 08/17/18 09:16 Dose: 500 mg Carvedilol (Coreg) 12.5 mg PO Q12 [facility] Clopidogrel Bisulfate (Plavix) 75 mg PO DAILY [facility] Last Admin: 08/17/18 09:14 Dose: 75 mg Docusate Sodium (Colace) 100 mg PO BID [facility] Last Admin: 08/17/18 09:11 Dose: 100 mg Enalapril Maleate (Vasotec) 20 mg PO DAILY [facility] Last Admin: 08/17/18 09:17 Dose: 20 mg Fluticasone Propionate (Flonase) 1 spr LUIS BID [facility] Last Admin: 08/17/18 09:12 Dose: 1 spr Furosemide (Lasix) 20 mg PO DAILY [facility] Last Admin: 08/14/18 09:20 Dose: 20 mg Cefepime HCl 2 gm/ Sodium (Chloride) 100 mls @ 100 mls/hr IVPB Q8H [facility]; Protocol Last Admin: 08/17/18 10:50 Dose: 100 mls/hr Magnesium Hydroxide (Milk Of Magnesia) 30 ml PO DAILY PRN PRN Reason: Constipation Metformin HCl (Glucophage) 500 mg PO BID [facility] Last Admin: 08/17/18 09:13 Dose: 500 mg Methylprednisolone (Solu-Medrol) 40 mg IVP Q12H [facility] Last Admin: 08/17/18 09:16 Dose: 40 mg Montelukast Sodium (Singulair) 10 mg PO HS [facility] Last Admin: 08/16/18 21:10 Dose: 10 mg Multivitamins/Minerals (Therapeutic-M Tab) 1 tab PO DAILY [facility] Last Admin: 08/17/18 09:16 Dose: 1 tab Pantoprazole Sodium (Protonix Ec Tab) 40 mg PO DAILY [facility] Last Admin: 08/17/18 09:15 Dose: 40 mg - Labs Labs: 08/16/18 10:00 08/16/18 10:00 Assessment and Plan (1) NSTEMI (non-ST elevated myocardial infarction) Status: Acute (2) Pneumonia Status: Acute (3) Bronchial asthma Status: Chronic
[2018-08-17] MEDS ORDERED: Tolvaptan 15 MG TAB PO SCH (11:00)
--- NOTE | 2018-08-17 11:02 | CP.PCM.PN ---
Subjective - Date & Time of Evaluation Date of Evaluation: 08/17/18 Time of Evaluation: 11:02 - Subjective Subjective: Patient in bed she appears to be comfortable Vital signs stable Objective - Vital Signs/Intake and Output Vital Signs (last 24 hours): Temp Pulse Resp BP Pulse Ox 97.7 F 128 H 18 121/72 96 08/17/18 08:04 08/17/18 09:14 08/17/18 08:04 08/17/18 09:14 08/17/18 08:04 - Medications Medications: Current Medications Acetaminophen (Tylenol 325mg Tab) 650 mg PO Q6 PRN PRN Reason: Pain, moderate (4-7) Acetylcysteine (Acetylcysteine 20%) 2 ml INH RBID [facility] Last Admin: 08/17/18 07:35 Dose: 2 ml Albuterol Sulfate (Albuterol 0.083% Inhal Autumn (2.5 Mg/3 Ml) Ud) 2.5 mg INH RQ4 PRN PRN Reason: Shortness of Breath Albuterol/Ipratropium (Duoneb 3 Mg/0.5 Mg (3 Ml) Ud) 3 ml INH RQID [facility] Last Admin: 08/17/18 07:35 Dose: 3 ml Alendronate Sodium (Fosamax) 70 mg PO FRI [facility] Last Admin: 08/14/18 09:25 Dose: 70 mg Aspirin (Aspirin) 325 mg PO DAILY [facility] Last Admin: 08/17/18 10:15 Dose: 325 mg Atorvastatin Calcium (Lipitor) 40 mg PO HS [facility] Last Admin: 08/16/18 21:10 Dose: 40 mg Azithromycin (Zithromax) 500 mg PO DAILY [facility] Last Admin: 08/17/18 09:16 Dose: 500 mg Carvedilol (Coreg) 12.5 mg PO Q12 [facility] Clopidogrel Bisulfate (Plavix) 75 mg PO DAILY [facility] Last Admin: 08/17/18 09:14 Dose: 75 mg Docusate Sodium (Colace) 100 mg PO BID [facility] Last Admin: 08/17/18 09:11 Dose: 100 mg Enalapril Maleate (Vasotec) 20 mg PO DAILY [facility] Last Admin: 08/17/18 09:17 Dose: 20 mg Fluticasone Propionate (Flonase) 1 spr LUIS BID [facility] Last Admin: 08/17/18 09:12 Dose: 1 spr Furosemide (Lasix) 20 mg PO DAILY [facility] Last Admin: 08/14/18 09:20 Dose: 20 mg Cefepime HCl 2 gm/ Sodium (Chloride) 100 mls @ 100 mls/hr IVPB Q8H [facility]; Protocol Last Admin: 08/17/18 10:50 Dose: 100 mls/hr Magnesium Hydroxide (Milk Of Magnesia) 30 ml PO DAILY PRN PRN Reason: Constipation Metformin HCl (Glucophage) 500 mg PO BID [facility] Last Admin: 08/17/18 09:13 Dose: 500 mg Methylprednisolone (Solu-Medrol) 40 mg IVP Q12H [facility] Last Admin: 08/17/18 09:16 Dose: 40 mg Montelukast Sodium (Singulair) 10 mg PO HS [facility] Last Admin: 08/16/18 21:10 Dose: 10 mg Multivitamins/Minerals (Therapeutic-M Tab) 1 tab PO DAILY [facility] Last Admin: 08/17/18 09:16 Dose: 1 tab Pantoprazole Sodium (Protonix Ec Tab) 40 mg PO DAILY [facility] Last Admin: 08/17/18 09:15 Dose: 40 mg Tolvaptan (Samsca) 15 mg PO DAILY [facility] - Labs Labs: 08/17/18 10:46 08/16/18 10:00 - Constitutional Appears: No Acute Distress - Eye Exam Eye Exam: Conjunctival injection - ENT Exam ENT Exam: absent: Mucous Membranes Moist - Respiratory Exam Respiratory Exam: absent: Chest Wall Tenderness - Cardiovascular Exam Cardiovascular Exam: absent: Gallop, Rubs - GI/Abdominal Exam GI & Abdominal Exam: Soft, Normal Bowel Sounds - Extremities Exam Extremities Exam: absent: Calf Tenderness - Back Exam Back Exam: absent: CVA tenderness (L), CVA tenderness (R) - Neurological Exam Neurological Exam: Alert - Psychiatric Exam Psychiatric exam: Normal Affect - Skin Skin Exam: absent: Cyanosis Assessment and Plan (1) SIADH (syndrome of inappropriate ADH production) Assessment & Plan: Chronic SIADH with chronic hyponatremia NSTEM ATRIAL FIBRILLATION WITH RAPID RATE HYPERTENSION HYPERLIPIDEMIA [employer]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
[2018-08-17 11:22] LABS: ALB/GLOB RATIO 1.4 (1.0-2.1); ALBUMIN 3.5 g/dL (3.5-5.0); ALT/SGPT 209 U/L (9-52); AST/SGOT 241 U/L (14-36); BLOOD UREA NITROGEN 34 mg/dl (7-17); CALCIUM 8.2 mg/dL (8.4-10.2); GFR NON-AFRICAN AMERICAN > 60
[2018-08-17 13:14] LABS: IRON 38 ug/dL (37-170)
[2018-08-17 13:30] LABS: % IRON SATURATION 11 % (20-55); TOTAL IRON BINDING CAPACITY 345 ug/dL (250-450)
[2018-08-17] MEDS ORDERED: Iohexol 240 (50 ml) PO ONE (15:22)
[2018-08-17] MEDS ORDERED: Chlorhexidine Gluconate 1 APPL/PKT TP ONE (17:43)
--- NOTE | 2018-08-17 18:01 | CT ---
Date of service: 08/17/2018 PROCEDURE: CT Chest without contrast HISTORY: PNA COMPARISON: Chest CT without contrast 05/15/2018. TECHNIQUE: Contiguous axial images were obtained through the chest without intravenous contrast enhancement. Sagittal and coronal reconstructions were performed. Radiation dose: Total exam DLP = 342.41 mGy-cm. This CT exam was performed using one or more of the following dose reduction techniques: Automated exposure control, adjustment of the mA and/or kV according to patient size, and/or use of iterative reconstruction technique. FINDINGS: LUNGS: Bilateral upper lobe infiltrates appear diminished, scattered with increased bilateral pleural effusions appear [id number] overall volume exerting compressive atelectasis at the bilateral upper lobes and minimally at the bilateral lower lobe somewhat as well. No pericardial effusion or pneumothorax. MEDIASTINUM: Cardiomegaly stable. Main pulmonary artery unremarkable. No vascular congestion. No gross lymphadenopathy. Lack of intravenous contrast limits the evaluation of the mediastinum. Calcific atherosclerotic changes are seen related to the thoracic aorta, non aneurysmal once again. PLEURA: As above. BONES: Lower thoracic spinal compression fracture reiterated. There is interval fracture added intermediate stage of healing identified at the right scapula with prominent periosteal reaction surrounding the fracture plane. Pathological fracture not excluded here. UPPER ABDOMEN: Widespread hepatic metastases likely worsened as liver appears to be enlarging. OTHER FINDINGS: None. IMPRESSION: 1. Diminishing bilateral upper lobe pneumonia with [id number] residual. 2. Slight increase in bilateral pleural effusions appearing [id number] volume bilaterally, causing compressive atelectasis at the bilateral lower lobes. 3. Interval right scapular fracture added intermediate stage of healing. Pathological fracture origin not excluded. 4. Widespread hepatic metastases likely worsen as liver appears to be enlarged.
--- NOTE | 2018-08-17 19:14 | CT ---
Date of service: 08/17/2018 PROCEDURE: CT Abdomen and Pelvis without intravenous contrast HISTORY: PNA, constipation COMPARISON: None. TECHNIQUE: Helical CT of the abdomen and pelvis was performed without intravenous contrast as per referring physician request. Coronal and sagittal reformats were generated.. Limited oral contrast was administered. Contrast dose: None Radiation dose: Total exam DLP = 631.29 mGy-cm. This CT exam was performed using one or more of the following dose reduction techniques: Automated exposure control, adjustment of the mA and/or kV according to patient size, and/or use of iterative reconstruction technique. FINDINGS: LOWER THORAX: Bilateral pleural effusions appear mild at the left and [id number] the right exerting pressure compressive atelectasis at the bilateral lower lobes. There is a moderate-sized hiatal hernia. Cardiomegaly is noted with dense mitral annular calcification. Restrained motion degrades quality of the exam. LIVER: Hepatomegaly with innumerable hepatic metastasis identified. GALLBLADDER AND BILE DUCTS: Contracted and otherwise unremarkable. PANCREAS: Unremarkable. No gross lesion or ductal dilatation. SPLEEN: Unremarkable. ADRENALS: Unremarkable. No mass. KIDNEYS AND URETERS: Unremarkable. No hydronephrosis. No solid mass. VASCULATURE: Nonaneurysmal abdominal aortic calcific atherosclerotic changes are identified. BOWEL: Prominent retained fecal material scattered throughout the large bowel suggesting constipation. Lack of adequate oral contrast limits interpretation. APPENDIX: Not identified. No CT evidence of appendicitis. PERITONEUM: Unremarkable. No free fluid. No free air. LYMPH NODES: Unremarkable. No enlarged lymph nodes. BLADDER: Distended but smooth and thin walled. Partially obscured by artifact related to bilateral hip ORIF hardware. REPRODUCTIVE: Unremarkable. BONES: Moderate to severe anterior wedge compression fracture of L1, chronic. OTHER FINDINGS: Reactive changes at the bilateral flanks are identified with thickened skin which could reflect cellulitis. Clinically correlate further. IMPRESSION: Hepatomegaly secondary to metastasis. Constipation. No bowel obstruction. Incidental bilateral pleural effusions and compressive atelectasis with moderate hiatal hernia. Reactive changes at the bilateral flanks are identified with thickened skin which could reflect cellulitis. Clinically correlate further.
--- NOTE | 2018-08-17 19:42 | CP.PCM.PN ---
Subjective - Date & Time of Evaluation Date of Evaluation: 08/17/18 Time of Evaluation: 22:22 - Subjective Subjective: K+ 5.9 Elevated LFT and WBC Objective - Vital Signs/Intake and Output Vital Signs (last 24 hours): Temp Pulse Resp BP Pulse Ox 97.3 F L 121 H 20 118/66 95 08/17/18 15:57 08/17/18 15:57 08/17/18 15:57 08/17/18 15:57 08/17/18 15:57 - Medications Medications: Current Medications Acetaminophen (Tylenol 325mg Tab) 650 mg PO Q6 PRN PRN Reason: Pain, moderate (4-7) Acetylcysteine (Acetylcysteine 20%) 2 ml INH RBID [facility] Last Admin: 08/17/18 19:19 Dose: 2 ml Albuterol Sulfate (Albuterol 0.083% Inhal Autumn (2.5 Mg/3 Ml) Ud) 2.5 mg INH RQ4 PRN PRN Reason: Shortness of Breath Albuterol/Ipratropium (Duoneb 3 Mg/0.5 Mg (3 Ml) Ud) 3 ml INH RQID [facility] Last Admin: 08/17/18 19:18 Dose: 3 ml Alendronate Sodium (Fosamax) 70 mg PO FRI [facility] Last Admin: 08/14/18 09:25 Dose: 70 mg Aspirin (Aspirin) 325 mg PO DAILY [facility] Last Admin: 08/17/18 10:15 Dose: 325 mg Atorvastatin Calcium (Lipitor) 40 mg PO HS [facility] Last Admin: 08/16/18 21:10 Dose: 40 mg Carvedilol (Coreg) 12.5 mg PO Q12 [facility] Clopidogrel Bisulfate (Plavix) 75 mg PO DAILY [facility] Last Admin: 08/17/18 09:14 Dose: 75 mg Docusate Sodium (Colace) 100 mg PO BID [facility] Last Admin: 08/17/18 16:25 Dose: 100 mg Enalapril Maleate (Vasotec) 20 mg PO DAILY [facility] Last Admin: 08/17/18 09:17 Dose: 20 mg Fluticasone Propionate (Flonase) 1 spr LUIS BID [facility] Last Admin: 08/17/18 16:26 Dose: 1 spr Furosemide (Lasix) 20 mg PO DAILY [facility] Last Admin: 08/14/18 09:20 Dose: 20 mg Cefepime HCl 2 gm/ Sodium (Chloride) 100 mls @ 100 mls/hr IVPB Q8H [facility]; Leilani col Last Admin: 08/17/18 10:50 Dose: 100 mls/hr Clindamycin Phosphate (Cleocin) 600 mg in 50 mls @ 100 mls/hr IVPB Q8H [facility]; Protocol Magnesium Hydroxide (Milk Of Magnesia) 30 ml PO DAILY PRN PRN Reason: Constipation Methylprednisolone (Solu-Medrol) 40 mg IVP Q12H [facility] Stop: 08/17/18 23:59 Last Admin: 08/17/18 09:16 Dose: 40 mg Methylprednisolone (Solu-Medrol) 40 mg IVP DAILY [facility] Montelukast Sodium (Singulair) 10 mg PO HS [facility] Last Admin: 08/16/18 21:10 Dose: 10 mg Multivitamins/Minerals (Therapeutic-M Tab) 1 tab PO DAILY [facility] Last Admin: 08/17/18 09:16 Dose: 1 tab Pantoprazole Sodium (Protonix Ec Tab) 40 mg PO DAILY [facility] Last Admin: 08/17/18 09:15 Dose: 40 mg Tolvaptan (Samsca) 15 mg PO DAILY [facility] - Labs Labs: 08/17/18 10:46 08/17/18 10:46 - Respiratory Exam Respiratory Exam: NORMAL BREATHING PATTERN - Cardiovascular Exam Cardiovascular Exam: REGULAR RHYTHM - GI/Abdominal Exam GI & Abdominal Exam: Normal Bowel Sounds Assessment and Plan - Assessment and Plan (Free Text) Assessment: Elevated LFT's US ?? GI consult Long discussion Hyperkalemia Kaexylate Nephrology Hyponatremia 2 to SIADH ?? Samsca New NSTEMI + CE new S/P Acute ant wall GA O2 ASA Plavix JAYESH B-annia Nitrates Lasix Norvasc Cardiology Last Echo good LV fxn SOB COPD/ Asthma CAP?? Prov Atrovent Steroids ABX Pulmonary consult Anemia Hx Rectal bleeding stable Hx rectal prolapse Hx hemorrhoids Refusing w/u S/P Fall etiol?? 2 to above? Chronic anxiety Ativan
--- NOTE | 2018-08-17 20:24 | CP.PCM.CON ---
History of Present Illness - History of Present Illness History of Present Illness: 88 yo female admitted for shortness of breath. Has had anemia in the past though declined w/u. Now has been found to have elevated LFTs. Having midabdominal pain. Review of Systems - Constitutional Constitutional: absent: Chills - EENT Eyes: absent: Change in Vision Ears: absent: Ear Pain Nose/Mouth/Throat: absent: Epistaxis - Cardiovascular Cardiovascular: absent: Chest Pain - Respiratory Respiratory: Dyspnea - Gastrointestinal Gastrointestinal: Abdominal Pain - Genitourinary Genitourinary: absent: Change in Urinary Stream Past Patient History - Past Medical History & Family History Past Medical History?: Yes - Past Social History Smoking Status: Never Smoked - CARDIAC Hx Atrial Fibrillation: No Hx Cardia Arrhythmia: No Hx Congestive Heart Failure: Yes Hx Hypercholesterolemia: Yes Hx Hypertension: Yes Hx Mitral Valve Prolapse: No Hx Pacemaker: No Hx Peripheral Edema: No - PULMONARY Hx Asthma: Yes Hx Bronchitis: Yes Hx Chronic Obstructive Pulmonary Disease (COPD): Yes Hx Emphysema: No Hx Pneumonia: Yes Hx Pulmonary Embolism: No Hx Sleep Apnea: No - NEUROLOGICAL Hx Alzheimer's Disease: No Hx Dementia: No Hx Migraine: No Hx Multiple Sclerosis: No Hx Parkinson's Disease: No Hx Seizures: No Hx Transient Ischemic Attacks (TIA): No - HEENT Hx HEENT Problems: No - RENAL Hx Chronic Kidney Disease: No Hx Kidney Stones: No - ENDOCRINE/METABOLIC Hx Hyperthyroidism: No Hx Hypothyroidism: No - HEMATOLOGICAL/ONCOLOGICAL Hx Anemia: No Hx Human Immunodeficiency Virus (HIV): No Hx Sickle Cell Disease: No - INTEGUMENTARY Hx Dermatological Problems: No - MUSCULOSKELETAL/RHEUMATOLOGICAL Hx Arthritis: No Hx Fractures: Yes Hx Osteoporosis: No Hx Rheumatoid Arthritis: No - GASTROINTESTINAL Hx Crohn's Disease: No Hx Diverticulitis: No Hx Gall Bladder Disease: No Hx Gastritis: No Hx Pancreatitis: No - GENITOURINARY/GYNECOLOGICAL Hx Sexually Transmitted Disorders: No - PSYCHIATRIC Hx Anxiety: Yes Hx Bipolar Disorder: No Hx Depression: Yes Hx Paranoia: Yes Hx Post Traumatic Stress Disorder: No Hx Schizophrenia: No - SURGICAL HISTORY Hx Appendectomy: No Hx Carotid Endarterectomy: No Hx Cholecystectomy: No Hx Coronary Artery Bypass Graft: No Hx Coronary Stent: No Hx Tonsillectomy: No - ANESTHESIA Hx Anesthesia: Yes Hx Anesthesia Reactions: No Hx Malignant Hyperthermia: No Meds Allergies/Adverse Reactions: Allergies Allergy/AdvReac Type Severity Reaction Status Date / Time No Known Allergies Allergy Verified 06/16/18 14:16 - Medications Medications: Current Medications Acetaminophen (Tylenol 325mg Tab) 650 mg PO Q6 PRN PRN Reason: Pain, moderate (4-7) Acetylcysteine (Acetylcysteine 20%) 2 ml INH RBID [facility] Last Admin: 08/17/18 19:19 Dose: 2 ml Albuterol Sulfate (Albuterol 0.083% Inhal Autumn (2.5 Mg/3 Ml) Ud) 2.5 mg INH RQ4 PRN PRN Reason: Shortness of Breath Albuterol/Ipratropium (Duoneb 3 Mg/0.5 Mg (3 Ml) Ud) 3 ml INH RQID [facility] Last Admin: 08/17/18 19:18 Dose: 3 ml Alendronate Sodium (Fosamax) 70 mg PO FRI [facility] Last Admin: 08/14/18 09:25 Dose: 70 mg Aspirin (Aspirin) 325 mg PO DAILY [facility] Last Admin: 08/17/18 10:15 Dose: 325 mg Atorvastatin Calcium (Lipitor) 40 mg PO HS [facility] Last Admin: 08/16/18 21:10 Dose: 40 mg Carvedilol (Coreg) 12.5 mg PO Q12 [facility] Clopidogrel Bisulfate (Plavix) 75 mg PO DAILY [facility] Last Admin: 08/17/18 09:14 Dose: 75 mg Docusate Sodium (Colace) 100 mg PO BID [facility] Last Admin: 08/17/18 16:25 Dose: 100 mg Enalapril Maleate (Vasotec) 20 mg PO DAILY [facility] Last Admin: 08/17/18 09:17 Dose: 20 mg Fluticasone Propionate (Flonase) 1 spr LUIS BID [facility] Last Admin: 08/17/18 16:26 Dose: 1 spr Furosemide (Lasix) 20 mg PO DAILY [facility] Last Admin: 08/14/18 09:20 Dose: 20 mg Cefepime HCl 2 gm/ Sodium (Chloride) 100 mls @ 100 mls/hr IVPB Q8H [facility]; Protocol Last Admin: 08/17/18 10:50 Dose: 100 mls/hr Clindamycin Phosphate (Cleocin) 600 mg in 50 mls @ 100 mls/hr IVPB Q8H [facility]; Protocol Magnesium Hydroxide (Milk Of Magnesia) 30 ml PO DAILY PRN PRN Reason: Constipation Methylprednisolone (Solu-Medrol) 40 mg IVP Q12H [facility] Stop: 08/17/18 23:59 Last Admin: 08/17/18 09:16 Dose: 40 mg Methylprednisolone (Solu-Medrol) 40 mg IVP DAILY [facility] Montelukast Sodium (Singulair) 10 mg PO HS [facility] Last Admin: 08/16/18 21:10 Dose: 10 mg Multivitamins/Minerals (Therapeutic-M Tab) 1 tab PO DAILY [facility] Last Admin: 08/17/18 09:16 Dose: 1 tab Pantoprazole Sodium (Protonix Ec Tab) 40 mg PO DAILY [facility] Last Admin: 08/17/18 09:15 Dose: 40 mg Tolvaptan (Samsca) 15 mg PO DAILY [facility] Physical Exam - Constitutional Appears: No Acute Distress - Head Exam Head Exam: ATRAUMATIC - Eye Exam Eye Exam: Normal appearance - ENT Exam ENT Exam: Normal Exam - Neck Exam Neck exam: Positive for: Normal Inspection - Respiratory Exam Respiratory Exam: Clear to Auscultation Bilateral - Cardiovascular Exam Cardiovascular Exam: REGULAR RHYTHM - GI/Abdominal Exam GI & Abdominal Exam: Distended, Normal Bowel Sounds, Soft Results - Vital Signs Recent Vital Signs: Last Vital Signs Temp 97.7 F 08/17/18 20:04 Pulse 62 08/17/18 20:04 Resp 18 08/17/18 20:04 BP 122/70 08/17/18 20:04 Pulse Ox 96 08/17/18 20:04 - Labs Result Diagrams: 08/17/18 10:46 08/17/18 10:46 Labs: Laboratory Results - last 24 hr 08/16/18 08/17/18 08/17/18 21:59 04:20 05:27 WBC RBC Hgb Hct MCV MCH MCHC RDW Plt Count Sodium Potassium Chloride Carbon Dioxide Anion Gap BUN Creatinine Est GFR ( Amer) Est GFR (Non-Af Amer) POC Glucose (mg/dL) 180 H 183 H Random Glucose Calcium Iron TIBC % Saturation Ferritin Total Bilirubin AST ALT Alkaline Phosphatase Total Protein Albumin Globulin Albumin/Globulin Ratio Vitamin B12 Procalcitonin 44.28 H 08/17/18 08/17/18 08/17/18 10:46 10:46 11:11 WBC 15.0 H RBC 2.76 L Hgb 8.9 L Hct 27.2 L MCV 98.4 MCH 32.1 H MCHC 32.7 L RDW 16.9 H Plt Count 215 Sodium 131 L Potassium 5.9 H Chloride 95 L Carbon Dioxide 24 Anion Gap 18 BUN 34 H Creatinine 0.7 Est GFR ( Amer) > 60 Est GFR (Non-Af Amer) > 60 POC Glucose (mg/dL) 199 H Random Glucose 173 H Calcium 8.2 L Iron TIBC % Saturation Ferritin Total Bilirubin 0.8 AST 241 H ALT 209 H Alkaline Phosphatase 262 H D Total Protein 6.0 L Albumin 3.5 Globulin 2.4 Albumin/Globulin Ratio 1.4 Vitamin B12 Procalcitonin 08/17/18 08/17/18 08/17/18 11:54 12:46 15:51 WBC RBC Hgb Hct MCV MCH MCHC RDW Plt Count Sodium Potassium Chloride Carbon Dioxide Anion Gap BUN Creatinine Est GFR ( Amer) Est GFR (Non-Af Amer) POC Glucose (mg/dL) 177 H Random Glucose Calcium Iron 38 TIBC 345 % Saturation 11 L Ferritin 136.0 Total Bilirubin AST ALT Alkaline Phosphatase Total Protein Albumin Globulin Albumin/Globulin Ratio Vitamin B12 > 1000 H Procalcitonin - Imaging and Cardiology US - abdomen Status: Report reviewed by me CT scan - abdomen Status: Report reviewed by me Assessment & Plan (1) Elevated LFTs Assessment and Plan: Has newly elevated LFTs . Also has iron deficiency anemia. Sono showed irregular liver mass and CT read as showing multiple liver mets. Will get CEA, AFP, CA19- 9. Laxatives for constipation Status: Acute
[2018-08-17] MEDS: Sodium Chloride 0.45% 1,000 ML IV SCH (21:20)
[2018-08-18] MEDS: Cefepime 2 GM in Sodium Chloride 0.9% 100 ML IVPB SCH ×3 (02:28→18:53)
--- NOTE | 2018-08-18 05:24 | CON ---
DATE: 08/17/2018 ENDOCRINOLOGY CONSULT LOCATION: Room 410, bed 2. HISTORY OF PRESENT ILLNESS: This is an 88-year-old female with known history of type 2 diabetes on oral hypoglycemic therapy, presenting here with progressive shortness of breath and evaluated to have an acute pneumonitis with supervening acute exacerbation of COPD and has been started on IV steroid therapy and is now being referred for diabetic evaluation and management. A CAT scan procedure is scheduled and the patient's metformin has been withheld accordingly. PAST MEDICAL HISTORY: As mentioned above, history of type 2 diabetes, on metformin, given as 500 mg b.i.d.; history of hypertension and dyslipidemia; history of chronic obstructive lung disease with previous admissions for exacerbations of the same; history of generalized anxiety and depression, on anxiolytic therapy as noted; history of coronary artery disease with previous admissions for congestive heart failure; history of diffuse osteoarthritis and lower back pain. FAMILY HISTORY: Positive for hypertension and heart disease. SOCIAL HISTORY: The patient has a supportive family. No known substance use. REVIEW OF SYSTEMS: As mentioned above, admits to generalized body weakness with episodic bouts of dizziness and lightheadedness and suboptimal energy level, worse in the last few days prior to admission. No chest pains, but admits to progressive shortness of breath initially on exertion and then at rest with paroxysmal nocturnal dyspnea. Her oral intake has been variable with nausea, dyspepsia and vague upper abdominal pains. Also admits to habitual constipation. PHYSICAL EXAMINATION: GENERAL: This is an average-built female in no apparent distress. VITAL SIGNS: Blood pressure of 140/80, pulse of 70 beats per minute and regular, temperature 98, respirations 20. Height is 5 feet 2 inches. Weight is 112 pounds. HEENT: Head: Normocephalic. Eyes: Anicteric with pink conjunctivae. Funduscopy not possible at this time. Ears, nose and throat, otherwise normal. NECK: Supple. Thyroid gland is normal in size. Normal carotid bruits or any cervical adenopathy. CARDIOPULMONARY: Some adynamic precordium. S1, S2, is rapid and regular. LUNGS: Clear to auscultation. ABDOMEN: Flat, soft with positive bowel sounds. EXTREMITIES: No peripheral edema. Pulses are +2 bilaterally. LABORATORY DATA: CBC: WBC is 15, hemoglobin of 8.9, hematocrit of 27, MCV 98, platelets 215. The chemistry showed a BUN of 34, sodium 131, potassium 5.9, chloride 95, CO2 of 24, glucose 173 and creatinine 0.7. Her glucose levels have ranged from 177 to 199 mg/dL. Her lactic acid is 6.0. She also has elevated liver transaminases as noted. TSH is 0.94. ASSESSMENT: This is an 88-year-old female with acute exacerbation of asthmatic bronchitis with underlying chronic obstructive pulmonary disease and concomitant pneumonitis started on intravenous steroid therapy with expected transient hyperglycemic accelerations as noted thereof from the intercurrent increased insulin resistance with the intravenous steroids as given. PLAN OF MANAGEMENT: We will actually not only hold off her metformin therapy because of the CAT scan procedure but will actually discontinue the metformin therapy altogether especially with her advanced age and expected impaired glomerular filtration rate even with normal creatinine levels. Considering that she has been on metformin for some years now and only recent accelerations of her liver transaminases, I would highly doubt that this could be medication related at all. We have to exclude any colonic or gastrointestinal related elevations of the liver transaminases, especially any underlying cholelithiasis or neuroendocrine tumors accordingly. We will obtain a hemoglobin A1c to confirm her prior glycemic control and baseline thyroid function studies will be ordered. We will also add a gamma-glutamyl transpeptidase (GGTP) level also in the morning. We will observe her glycemic fluctuations and determine the need to add a sulfonylurea medication as indicated. We will follow and advise accordingly. Billie Bruce MD
[2018-08-18 05:52] LABS: ALB/GLOB RATIO 1.4 (1.0-2.1); ALBUMIN 3.2 g/dL (3.5-5.0); ALT/SGPT 220 U/L (9-52); AST/SGOT 278 U/L (14-36); BLOOD UREA NITROGEN 37 mg/dl (7-17); CALCIUM 7.7 mg/dL (8.4-10.2); GFR NON-AFRICAN AMERICAN 59
[2018-08-18] MEDS: Albuterol-Ipratrop 3 mg / 0.5 (3 ml) UD INH SCH ×4 (07:37→19:37)
[2018-08-18] MEDS: Acetylcysteine 20% Inhal Soln (4ml) INH SCH ×2 (07:37→19:37)
[2018-08-18] MEDS ORDERED: methylPREDNISolone 40 MG in Sodium Chloride 0.9% 50 ML IV SCH (09:00)
[2018-08-18] MEDS: Clindamycin 600mg/50ml D5W 600 MG/50 ML VIAL IVPB SCH ×2 (09:14→17:09)
[2018-08-18] MEDS: Pantoprazole 40 mg EC Tab PO SCH (09:17)
[2018-08-18] MEDS: Tolvaptan 15 MG TAB PO SCH (09:18)
[2018-08-18] MEDS: MethylPREDNISolone 40 mg Vial IVP SCH (09:19)
[2018-08-18] MEDS: Multivitamin With Minerals Tab PO SCH (09:19)
--- NOTE | 2018-08-18 09:38 | CP.PCM.PN ---
Subjective - Date & Time of Evaluation Date of Evaluation: 08/18/18 Time of Evaluation: 09:38 - Subjective Subjective: Patient awake she appears to be chronically ill and debilitated Objective - Vital Signs/Intake and Output Vital Signs (last 24 hours): Temp Pulse Resp BP Pulse Ox 97.5 F L 96 H 18 122/75 96 08/18/18 08:13 08/18/18 09:15 08/18/18 08:13 08/18/18 09:15 08/18/18 08:13 - Medications Medications: Current Medications Acetaminophen (Tylenol 325mg Tab) 650 mg PO Q6 PRN PRN Reason: Pain, moderate (4-7) Acetylcysteine (Acetylcysteine 20%) 2 ml INH RBID [facility] Last Admin: 08/18/18 07:37 Dose: 2 ml Albuterol Sulfate (Albuterol 0.083% Inhal Autumn (2.5 Mg/3 Ml) Ud) 2.5 mg INH RQ4 PRN PRN Reason: Shortness of Breath Albuterol/Ipratropium (Duoneb 3 Mg/0.5 Mg (3 Ml) Ud) 3 ml INH RQID [facility] Last Admin: 08/18/18 07:37 Dose: 3 ml Alendronate Sodium (Fosamax) 70 mg PO FRI [facility] Last Admin: 08/14/18 09:25 Dose: 70 mg Aspirin (Aspirin) 325 mg PO DAILY [facility] Last Admin: 08/17/18 10:15 Dose: 325 mg Atorvastatin Calcium (Lipitor) 40 mg PO HS [facility] Last Admin: 08/17/18 21:09 Dose: 40 mg Carvedilol (Coreg) 12.5 mg PO Q12 [facility] Last Admin: 08/18/18 09:15 Dose: 12.5 mg Clopidogrel Bisulfate (Plavix) 75 mg PO DAILY [facility] Last Admin: 08/18/18 09:17 Dose: 75 mg Docusate Sodium (Colace) 100 mg PO BID [facility] Last Admin: 08/18/18 09:14 Dose: 100 mg Enalapril Maleate (Vasotec) 20 mg PO DAILY [facility] Last Admin: 08/18/18 09:19 Dose: 20 mg Fluticasone Propionate (Flonase) 1 spr LUIS BID [facility] Last Admin: 08/18/18 09:16 Dose: 1 spr Furosemide (Lasix) 20 mg PO DAILY [facility] Last Admin: 08/14/18 09:20 Dose: 20 mg Cefepime HCl 2 gm/ Sodium (Chloride) 100 mls @ 100 mls/hr IVPB Q8H [facility]; Protocol Last Admin: 08/18/18 02:28 Dose: 100 mls/hr Clindamycin Phosphate (Cleocin) 600 mg in 50 mls @ 100 mls/hr IVPB Q8H [facility]; Protocol Last Admin: 08/18/18 09:14 Dose: 100 mls/hr Sodium Chloride (Sodium Chloride 0.45%) 1,000 mls @ 60 mls/hr IV .[id number] [facility] Stop: 08/18/18 21:06 Last Admin: 08/17/18 21:20 Dose: 60 mls/hr Lorazepam (Ativan) 0.5 mg PO Q12 [facility] Last Admin: 08/17/18 23:16 Dose: 0.5 mg Magnesium Hydroxide (Milk Of Magnesia) 30 ml PO DAILY PRN PRN Reason: Constipation Methylprednisolone (Solu-Medrol) 40 mg IVP DAILY [facility] Last Admin: 08/18/18 09:19 Dose: 40 mg Montelukast Sodium (Singulair) 10 mg PO HS [facility] Last Admin: 08/17/18 21:09 Dose: 10 mg Multivitamins/Minerals (Therapeutic-M Tab) 1 tab PO DAILY [facility] Last Admin: 08/18/18 09:19 Dose: 1 tab Pantoprazole Sodium (Protonix Ec Tab) 40 mg PO DAILY [facility] Last Admin: 08/18/18 09:17 Dose: 40 mg Tolvaptan (Samsca) 15 mg PO DAILY [facility] Last Admin: 08/18/18 09:18 Dose: 15 mg - Labs Labs: 08/17/18 10:46 08/18/18 04:25 - Constitutional Appears: No Acute Distress - ENT Exam ENT Exam: absent: Mucous Membranes Moist - Respiratory Exam Respiratory Exam: NORMAL BREATHING PATTERN. absent: Chest Wall Tenderness, Rhon chi - Cardiovascular Exam Cardiovascular Exam: absent: Gallop, Rubs - GI/Abdominal Exam GI & Abdominal Exam: Soft, Normal Bowel Sounds - Extremities Exam Extremities Exam: absent: Calf Tenderness - Back Exam Back Exam: absent: CVA tenderness (L), CVA tenderness (R) - Neurological Exam Neurological Exam: Alert - Skin Skin Exam: absent: Cyanosis Assessment and Plan (1) SIADH (syndrome of inappropriate ADH production) Assessment & Plan: Chronic SIADH with chronic hyponatremia NSTEM ATRIAL FIBRILLATION HYPERTENSION HYPERLIPIDEMIA Metastatic liver disease Abnormal liver function test COPD Anemia Plan Continue Samsca 15 mg daily for now Status: Acute
--- NOTE | 2018-08-18 10:41 | CP.PCM.PN ---
Subjective - Date & Time of Evaluation Date of Evaluation: 08/18/18 Time of Evaluation: 09:30 - Subjective Subjective: NO CHEST PAIN DENIES PALPITATIONS LESS SOB Objective - Vital Signs/Intake and Output Vital Signs (last 24 hours): Temp Pulse Resp BP Pulse Ox 97.5 F L 96 H 18 122/75 96 08/18/18 08:13 08/18/18 09:15 08/18/18 08:13 08/18/18 09:15 08/18/18 08:13 - Medications Medications: Current Medications Acetaminophen (Tylenol 325mg Tab) 650 mg PO Q6 PRN PRN Reason: Pain, moderate (4-7) Acetylcysteine (Acetylcysteine 20%) 2 ml INH RBID [facility] Last Admin: 08/18/18 07:37 Dose: 2 ml Albuterol Sulfate (Albuterol 0.083% Inhal Autumn (2.5 Mg/3 Ml) Ud) 2.5 mg INH RQ4 PRN PRN Reason: Shortness of Breath Albuterol/Ipratropium (Duoneb 3 Mg/0.5 Mg (3 Ml) Ud) 3 ml INH RQID [facility] Last Admin: 08/18/18 07:37 Dose: 3 ml Alendronate Sodium (Fosamax) 70 mg PO FRI [facility] Last Admin: 08/14/18 09:25 Dose: 70 mg Aspirin (Aspirin) 325 mg PO DAILY [facility] Last Admin: 08/18/18 09:41 Dose: 325 mg Atorvastatin Calcium (Lipitor) 40 mg PO HS [facility] Last Admin: 08/17/18 21:09 Dose: 40 mg Carvedilol (Coreg) 12.5 mg PO Q12 [facility] Last Admin: 08/18/18 09:15 Dose: 12.5 mg Clopidogrel Bisulfate (Plavix) 75 mg PO DAILY [facility] Last Admin: 08/18/18 09:17 Dose: 75 mg Docusate Sodium (Colace) 100 mg PO BID [facility] Last Admin: 08/18/18 09:14 Dose: 100 mg Enalapril Maleate (Vasotec) 20 mg PO DAILY [facility] Last Admin: 08/18/18 09:19 Dose: 20 mg Fluticasone Propionate (Flonase) 1 spr LUIS BID [facility] Last Admin: 08/18/18 09:16 Dose: 1 spr Furosemide (Lasix) 20 mg PO DAILY [facility] Last Admin: 08/14/18 09:20 Dose: 20 mg Cefepime HCl 2 gm/ Sodium (Chloride) 100 mls @ 100 mls/hr IVPB Q8H [facility]; Protocol Last Admin: 08/18/18 02:28 Dose: 100 mls/hr Clindamycin Phosphate (Cleocin) 600 mg in 50 mls @ 100 mls/hr IVPB Q8H [facility]; Protocol Last Admin: 08/18/18 09:14 Dose: 100 mls/hr Sodium Chloride (Sodium Chloride 0.45%) 1,000 mls @ 60 mls/hr IV .[id number] [facility] Stop: 08/18/18 21:06 Last Admin: 08/17/18 21:20 Dose: 60 mls/hr Lorazepam (Ativan) 0.5 mg PO Q12 [facility] Last Admin: 08/18/18 09:41 Dose: 0.5 mg Magnesium Hydroxide (Milk Of Magnesia) 30 ml PO DAILY PRN PRN Reason: Constipation Methylprednisolone (Solu-Medrol) 40 mg IVP DAILY [facility] Last Admin: 08/18/18 09:19 Dose: 40 mg Montelukast Sodium (Singulair) 10 mg PO HS [facility] Last Admin: 08/17/18 21:09 Dose: 10 mg Multivitamins/Minerals (Therapeutic-M Tab) 1 tab PO DAILY [facility] Last Admin: 08/18/18 09:19 Dose: 1 tab Pantoprazole Sodium (Protonix Ec Tab) 40 mg PO DAILY [facility] Last Admin: 08/18/18 09:17 Dose: 40 mg Tolvaptan (Samsca) 15 mg PO DAILY [facility] Last Admin: 08/18/18 09:18 Dose: 15 mg - Labs Labs: 08/17/18 10:46 08/18/18 04:25 - Respiratory Exam Respiratory Exam: Rales - Cardiovascular Exam Cardiovascular Exam: Irregular Rhythm, +S1, +S2 - Extremities Exam Additional comments: NO LE EDEMA - Additional Findings 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
--- NOTE | 2018-08-18 11:57 | CP.PCM.CON ---
History of Present Illness - History of Present Illness History of Present Illness: Psychiatry consult note called to evaluate anxiety; History obtained from the chart, patient unable to provide any history or relevant information CC: "I'm I in heaven?" HPI: 88 yo female admitted w/ SOB, now w/ elevated LFTs, hyperkalemia, new NSTEMI, anemia. Patient is unable to provide any reliable history. She does not know why she is in the hospital. She seriously asked the leader writer several times if she were already , and is this heaven or is this hell. She is only oriented to self. She denies acute depression and anxiety to leader writer. Denies SI/HI. Impression: 88 yo female w/ acute delirium vs worsening major neurocognitive impairment. -No acute psychiatric medications indicated at this time; patient's acute pre sentation likely secondary to acute medical condition and likely major neurocognitive disorder -Would recommend to avoid benzodiazepines as they may worsen confusion or agitation -No acute psychiatric admission indicated at this time Past Patient History - Past Medical History & Family History Past Medical History?: Yes - Past Social History Smoking Status: Never Smoked - CARDIAC Hx Atrial Fibrillation: No Hx Cardia Arrhythmia: No Hx Congestive Heart Failure: Yes Hx Hypercholesterolemia: Yes Hx Hypertension: Yes Hx Mitral Valve Prolapse: No Hx Pacemaker: No Hx Peripheral Edema: No - PULMONARY Hx Asthma: Yes Hx Bronchitis: Yes Hx Chronic Obstructive Pulmonary Disease (COPD): Yes Hx Emphysema: No Hx Pneumonia: Yes Hx Pulmonary Embolism: No Hx Sleep Apnea: No - NEUROLOGICAL Hx Alzheimer's Disease: No Hx Dementia: No Hx Migraine: No Hx Multiple Sclerosis: No Hx Parkinson's Disease: No Hx Seizures: No Hx Transient Ischemic Attacks (TIA): No - HEENT Hx HEENT Problems: No - RENAL Hx Chronic Kidney Disease: No Hx Kidney Stones: No - ENDOCRINE/METABOLIC Hx Hyperthyroidism: No Hx Hypothyroidism: No - HEMATOLOGICAL/ONCOLOGICAL Hx Anemia: No Hx Human Immunodeficiency Virus (HIV): No Hx Sickle Cell Disease: No - INTEGUMENTARY Hx Dermatological Problems: No - MUSCULOSKELETAL/RHEUMATOLOGICAL Hx Arthritis: No Hx Fractures: Yes Hx Osteoporosis: No Hx Rheumatoid Arthritis: No - GASTROINTESTINAL Hx Crohn's Disease: No Hx Diverticulitis: No Hx Gall Bladder Disease: No Hx Gastritis: No Hx Pancreatitis: No - GENITOURINARY/GYNECOLOGICAL Hx Sexually Transmitted Disorders: No - PSYCHIATRIC Hx Anxiety: Yes Hx Bipolar Disorder: No Hx Depression: Yes Hx Paranoia: Yes Hx Post Traumatic Stress Disorder: No Hx Schizophrenia: No - SURGICAL HISTORY Hx Appendectomy: No Hx Carotid Endarterectomy: No Hx Cholecystectomy: No Hx Coronary Artery Bypass Graft: No Hx Coronary Stent: No Hx Tonsillectomy: No - ANESTHESIA Hx Anesthesia: Yes Hx Anesthesia Reactions: No Hx Malignant Hyperthermia: No Meds Allergies/Adverse Reactions: Allergies Allergy/AdvReac Type Severity Reaction Status Date / Time No Known Allergies Allergy Verified 06/16/18 14:16 - Medications Medications: Current Medications Acetaminophen (Tylenol 325mg Tab) 650 mg PO Q6 PRN PRN Reason: Pain, moderate (4-7) Acetylcysteine (Acetylcysteine 20%) 2 ml INH RBID [facility] Last Admin: 08/18/18 07:37 Dose: 2 ml Albuterol Sulfate (Albuterol 0.083% Inhal Autumn (2.5 Mg/3 Ml) Ud) 2.5 mg INH RQ4 PRN PRN Reason: Shortness of Breath Albuterol/Ipratropium (Duoneb 3 Mg/0.5 Mg (3 Ml) Ud) 3 ml INH RQID [facility] Last Admin: 08/18/18 11:36 Dose: 3 ml Alendronate Sodium (Fosamax) 70 mg PO FRI [facility] Last Admin: 08/14/18 09:25 Dose: 70 mg Aspirin (Aspirin) 325 mg PO DAILY [facility] Last Admin: 08/18/18 09:41 Dose: 325 mg Atorvastatin Calcium (Lipitor) 40 mg PO HS [facility] Last Admin: 08/17/18 21:09 Dose: 40 mg Carvedilol (Coreg) 12.5 mg PO Q12 [facility] Last Admin: 08/18/18 09:15 Dose: 12.5 mg Clopidogrel Bisulfate (Plavix) 75 mg PO DAILY [facility] Last Admin: 08/18/18 09:17 Dose: 75 mg Docusate Sodium (Colace) 100 mg PO BID [facility] Last Admin: 08/18/18 09:14 Dose: 100 mg Enalapril Maleate (Vasotec) 20 mg PO DAILY [facility] Last Admin: 08/18/18 09:19 Dose: 20 mg Fluticasone Propionate (Flonase) 1 spr LUIS BID [facility] Last Admin: 08/18/18 09:16 Dose: 1 spr Furosemide (Lasix) 20 mg PO DAILY [facility] Last Admin: 08/14/18 09:20 Dose: 20 mg Cefepime HCl 2 gm/ Sodium (Chloride) 100 mls @ 100 mls/hr IVPB Q8H [facility]; Protocol Last Admin: 08/18/18 02:28 Dose: 100 mls/hr Clindamycin Phosphate (Cleocin) 600 mg in 50 mls @ 100 mls/hr IVPB Q8H [facility]; Protocol Last Admin: 08/18/18 09:14 Dose: 100 mls/hr Sodium Chloride (Sodium Chloride 0.45%) 1,000 mls @ 60 mls/hr IV .[id number] [facility] Stop: 08/18/18 21:06 Last Admin: 08/17/18 21:20 Dose: 60 mls/hr Lorazepam (Ativan) 0.5 mg PO Q12 [facility] Last Admin: 08/18/18 09:41 Dose: 0.5 mg Magnesium Hydroxide (Milk Of Magnesia) 30 ml PO DAILY PRN PRN Reason: Constipation Methylprednisolone (Solu-Medrol) 40 mg IVP DAILY [facility] Last Admin: 08/18/18 09:19 Dose: 40 mg Montelukast Sodium (Singulair) 10 mg PO HS [facility] Last Admin: 08/17/18 21:09 Dose: 10 mg Multivitamins/Minerals (Therapeutic-M Tab) 1 tab PO DAILY [facility] Last Admin: 08/18/18 09:19 Dose: 1 tab Pantoprazole Sodium (Protonix Ec Tab) 40 mg PO DAILY [facility] Last Admin: 08/18/18 09:17 Dose: 40 mg Tolvaptan (Samsca) 15 mg PO DAILY [facility] Last Admin: 08/18/18 09:18 Dose: 15 mg Results - Vital Signs Recent Vital Signs: Last Vital Signs Temp 97.5 F L 08/18/18 09:00 Pulse 96 H 08/18/18 09:15 Resp 18 08/18/18 09:00 BP 122/75 08/18/18 09:15 Pulse Ox 96 08/18/18 09:00 - Labs Result Diagrams: 08/17/18 10:46 08/18/18 04:25 Labs: Laboratory Results - last 24 hr 08/17/18 08/17/18 08/17/18 04:20 11:54 12:46 Sodium Potassium Chloride Carbon Dioxide Anion Gap BUN Creatinine Est GFR ( Amer) Est GFR (Non-Af Amer) POC Glucose (mg/dL) Random Glucose Calcium Magnesium Iron 38 TIBC 345 % Saturation 11 L Ferritin 136.0 Total Bilirubin AST ALT Alkaline Phosphatase Total Protein Albumin Globulin Albumin/Globulin Ratio Alpha Fetoprotein Vitamin B12 > 1000 H Procalcitonin 44.28 H TSH 3rd Generation 08/17/18 08/17/18 08/18/18 15:51 22:07 04:25 Sodium 134 Potassium 5.0 Chloride 97 L Carbon Dioxide 23 Anion Gap 19 BUN 37 H Creatinine 0.9 Est GFR ( Amer) > 60 Est GFR (Non-Af Amer) 59 POC Glucose (mg/dL) 177 H 207 H Random Glucose 173 H Calcium 7.7 L Magnesium 2.5 H Iron TIBC % Saturation Ferritin Total Bilirubin 0.8 AST 278 H ALT 220 H Alkaline Phosphatase 240 H Total Protein 5.4 L Albumin 3.2 L Globulin 2.2 Albumin/Globulin Ratio 1.4 Alpha Fetoprotein Vitamin B12 Procalcitonin TSH 3rd Generation 0.55 08/18/18 08/18/18 08/18/18 04:25 05:37 10:51 Sodium Potassium Chloride Carbon Dioxide Anion Gap BUN Creatinine Est GFR ( Amer) Est GFR (Non-Af Amer) POC Glucose (mg/dL) 185 H 253 H Random Glucose Calcium Magnesium Iron TIBC % Saturation Ferritin Total Bilirubin AST ALT Alkaline Phosphatase Total Protein Albumin Globulin Albumin/Globulin Ratio Alpha Fetoprotein 2.3 Vitamin B12 Procalcitonin TSH 3rd Generation
[2018-08-18 12:10] LABS: GAMMA GLUTAMYL TRANSPEPTIDASE 1306 U/L (8-78)
[2018-08-18 12:41] LABS: HEPATITIS B SURFACE AG Negative (NEGATIVE)
[2018-08-18 12:47] LABS: HEPATITIS A IGM NEGATIVE (NEGATIVE); HEPATITIS B CORE AB NEGATIVE (NEGATIVE)
[2018-08-18 12:58] LABS: HEPATITIS C ANTIBODY NEGATIVE (NEGATIVE)
[2018-08-18 13:20] LABS: FOLATE > 20.0 ng/mL
[2018-08-18] MEDS: Sodium Chloride 0.45% 1,000 ML IV SCH (14:12)
[2018-08-18] MEDS ORDERED: Sodium Chloride 0.9% 500 ML IV ONE (14:37)
--- NOTE | 2018-08-18 14:58 | PN ---
DATE: 08/18/2018 LOCATION: Room 410. SUBJECTIVE: This is an 88-year-old female with recent admission for acute pneumonitis and exacerbation of COPD and is now being followed closely for metabolic management. Her glycemic levels are fluctuating as noted overnight and have ranged from 185 to 207 mg/dL. Her liver transaminases remain elevated as noted. The chemistries today showed a BUN of 37, sodium 134, potassium 5, chloride 97, CO2 of 23, glucose 173 and creatinine 0.7. Her calcium level is 7.7 with an albumin level of 3.2 and a corrected calcium of 8.5 mg/dL. ASSESSMENT: This is an 88-year-old female with uncontrolled type 2 diabetes presenting here with acute pneumonitis and exacerbation of chronic obstructive pulmonary disease and is now being followed closely for metabolic management. She also has elevated liver transaminases and is undergoing gastrointestinal workup at this time. PLAN OF MANAGEMENT: We will hold off resumption of her metformin therapy after the completion of the CAT scan procedures in 48 hours, but we will add a different family of oral hypoglycemic therapy if hyperglycemic levels supervene as noted. We will consider the addition of low-dose sulfonylureas or low-dose DPP-4 inhibitors such as Januvia as indicated. We will shy away for metformin not only with advanced age of the patient, but also because of the impaired GFR even with normal creatinine values at patients with advanced age levels such as this patient. We will obtain serial chemistries and supplement accordingly as needed. We will follow up with you. Billie Bruce MD
--- NOTE | 2018-08-18 15:29 | CP.PCM.PN ---
Subjective - Date & Time of Evaluation Date of Evaluation: 08/18/18 Time of Evaluation: 09:00 - Subjective Subjective: Patient appears ill. Is confused. Objective - Vital Signs/Intake and Output Vital Signs (last 24 hours): Temp Pulse Resp BP Pulse Ox 98.3 F 70 18 100/62 87 L 08/18/18 13:05 08/18/18 13:05 08/18/18 13:05 08/18/18 13:05 08/18/18 13:05 - Medications Medications: Current Medications Acetaminophen (Tylenol 325mg Tab) 650 mg PO Q6 PRN PRN Reason: Pain, moderate (4-7) Acetylcysteine (Acetylcysteine 20%) 2 ml INH RBID [facility] Last Admin: 08/18/18 07:37 Dose: 2 ml Albuterol Sulfate (Albuterol 0.083% Inhal Autumn (2.5 Mg/3 Ml) Ud) 2.5 mg INH RQ4 PRN PRN Reason: Shortness of Breath Albuterol/Ipratropium (Duoneb 3 Mg/0.5 Mg (3 Ml) Ud) 3 ml INH RQID [facility] Last Admin: 08/18/18 15:25 Dose: 3 ml Alendronate Sodium (Fosamax) 70 mg PO FRI [facility] Last Admin: 08/14/18 09:25 Dose: 70 mg Aspirin (Aspirin) 325 mg PO DAILY [facility] Last Admin: 08/18/18 09:41 Dose: 325 mg Atorvastatin Calcium (Lipitor) 40 mg PO HS [facility] Last Admin: 08/17/18 21:09 Dose: 40 mg Carvedilol (Coreg) 12.5 mg PO Q12 [facility] Last Admin: 08/18/18 09:15 Dose: 12.5 mg Clopidogrel Bisulfate (Plavix) 75 mg PO DAILY [facility] Last Admin: 08/18/18 09:17 Dose: 75 mg Docusate Sodium (Colace) 100 mg PO BID [facility] Last Admin: 08/18/18 09:14 Dose: 100 mg Enalapril Maleate (Vasotec) 20 mg PO DAILY [facility] Last Admin: 08/18/18 09:19 Dose: 20 mg Fluticasone Propionate (Flonase) 1 spr LUIS BID [facility] Last Admin: 08/18/18 09:16 Dose: 1 spr Furosemide (Lasix) 20 mg PO DAILY [facility] Last Admin: 08/14/18 09:20 Dose: 20 mg Glipizide (Glucotrol) 5 mg PO ACBD [facility] Cefepime HCl 2 gm/ Sodium (Chloride) 100 mls @ 100 mls/hr IVPB Q8H [facility]; Protocol Last Admin: 08/18/18 12:18 Dose: 100 mls/hr Clindamycin Phosphate (Cleocin) 600 mg in 50 mls @ 100 mls/hr IVPB Q8H [facility]; Protocol Last Admin: 08/18/18 09:14 Dose: 100 mls/hr Sodium Chloride (Sodium Chloride 0.45%) 1,000 mls @ 60 mls/hr IV .[id number] [facility] Stop: 08/18/18 21:06 Last Admin: 08/18/18 14:12 Dose: Not Given Sodium Chloride (Sodium Chloride 0.9%) 500 mls @ 500 mls/hr IV .Q1H [facility] Stop: 08/18/18 15:36 Last Admin: 08/18/18 14:57 Dose: 500 mls/hr Lorazepam (Ativan) 0.5 mg PO Q12 [facility] Last Admin: 08/18/18 09:41 Dose: 0.5 mg Magnesium Hydroxide (Milk Of Magnesia) 30 ml PO DAILY PRN PRN Reason: Constipation Methylprednisolone (Solu-Medrol) 40 mg IVP DAILY [facility] Last Admin: 08/18/18 09:19 Dose: 40 mg Montelukast Sodium (Singulair) 10 mg PO HS [facility] Last Admin: 08/17/18 21:09 Dose: 10 mg Multivitamins/Minerals (Therapeutic-M Tab) 1 tab PO DAILY [facility] Last Admin: 08/18/18 09:19 Dose: 1 tab Pantoprazole Sodium (Protonix Ec Tab) 40 mg PO DAILY [facility] Last Admin: 08/18/18 09:17 Dose: 40 mg Tolvaptan (Samsca) 15 mg PO DAILY [facility] Last Admin: 08/18/18 09:18 Dose: 15 mg - Labs Labs: 08/17/18 10:46 08/18/18 04:25 - Head Exam Head Exam: ATRAUMATIC - Eye Exam Eye Exam: Normal appearance Pupil Exam: PERRL - ENT Exam ENT Exam: Normal Exam - Neck Exam Neck Exam: Full ROM - Respiratory Exam Respiratory Exam: Clear to Ausculation Bilateral - Cardiovascular Exam Cardiovascular Exam: REGULAR RHYTHM - GI/Abdominal Exam GI & Abdominal Exam: Soft, Normal Bowel Sounds Assessment and Plan (1) Elevated LFTs Assessment & Plan: CT demonstrates metastatic liver disease. CEA, CA 19-9 are elevated. Recommend Oncology consultation Status: Acute
--- NOTE | 2018-08-18 15:48 | CP.PCM.CON ---
History of Present Illness - History of Present Illness History of Present Illness: 88 year old female presents to the ED with 1 week of worsening wheezing cough and SOB Found to have pneumonia and started on IV antibiotics ID consulted for this Patient has a history of asthma On admission found to have NSTEMI as well as elevated LFT Patient is poor historian cultures pending . - Medical History PMH: Anxiety, Asthma, Bronchitis, CAD, CHF, COPD, Depression, Fractures, HTN, Hypercholesterolemia, Paranoia, Pneumonia Denies: Alzheimer's Disease, Anemia, Arthritis, Atrial Fibrillation, Bipolar Disorder, Cardia Arrhythmia, Crohn's Disease, Dementia, Diverticulitis, Emphysema, Gastritis, Gall Bladder Disease, HIV, Hyperthyroidism, Hypothyroidism, Kidney Stones, Migraine, Mitral Valve Prolapse, Multiple Sclerosis, Osteoporosis, Pancreatitis, Parkinson's Disease, Peripheral Edema, Post Traumatic Stress Disorder, Pulmonary Embolism, Chronic Kidney Disease, Rheumatoid Arthritis, Schizophrenia, Seizures, Sickle Cell Disease, Sexually Transmitted Disease, Sleep Apnea, TIA - Surgical History Surgical History: Denies: Appendectomy, CABG, Carotid Endarterectomy, Cholecystectomy, Coronary Stent, Pacemaker, Tonsillectomy Review of Systems - Review of Systems Systems not reviewed;Unavailable: Altered Mental Status All systems: reviewed and no additional remarkable complaints except - Constitutional Constitutional: As Per HPI - EENT Eyes: absent: As Per HPI, Blind Spots, Blurred Vision, Change in Vision, Decreased Night Vision, Diplopia, Discharge, Dry Eye, Exophthalmos, Floaters, Irritation, Itchy Eyes, Loss of Peripheral Vision, Pain, Photophobia, Requires Corrective Lenses, Sees Flashes, Spots in Vision, Tunnel Vision, Other Visual Disturbances, Loss of Vision, Other Ears: absent: As Per HPI, Decreased Hearing, Ear Discharge, Ear Pain, Tinnitus, Abnormal Hearing, Disequilibrium, Dizziness, Other Nose/Mouth/Throat: absent: As Per HPI, Epistaxis, Nasal Congestion, Nasal Discharge, Nasal Obstruction, Nasal Trauma, Nose Pain, Post Nasal Drip, Sinus Pain, Sinus Pressure, Bleeding Gums, Change in Voice, Dental Pain, Dry Mouth, Dysphagia, Halitosis, Hoarsness, Lip Swelling, Mouth Lesions, Mouth Pain, Odynophagia, Sore Throat, Throat Swelling, Tongue Swelling, Facial Pain, Neck Pain, Neck Mass, Other - Breasts Breasts: absent: As Per HPI, Change in Shape, Mass, Pain, Nipple Discharge, Nipple Inversion, Skin Changes, Swelling, Other - Cardiovascular Cardiovascular: As Per HPI - Respiratory Respiratory: Cough, Dyspnea. absent: Hemoptysis - Gastrointestinal Gastrointestinal: As Per HPI - Genitourinary Genitourinary: absent: As Per HPI, Change in Urinary Stream, Difficulty Urin ating, Dysuria, Flank Pain, Hematuria, Pyuria, Nocturia, Urinary Incontinence, Urinary Frequency, Urinary Hesitance, Urinary Urgency, Voiding Freq/Small Amts, Freq UTI, Hx Renal/Bladder Calculi, Hx /Renal Surgery, Bladder Distension, Other - Reproductive: Female Reproductive:Female: absent: As Per HPI, Amenorrhea, Amenorrhea/ Control, Currently Menstual, Cycle <21 Days, Cycle >35 Days, Cycle Variable, Menses 1-7 Days, Menses >/= 8 Days, Menses Variable, Cycle > 4 Weeks Between, No Menses for 6 Months, Heavy Menses, Light Menses, Normal Menses, Spotting Between Cycles, S/P Hysterectomy, Menopausal, Post Menopausal, Premenarche, Abnormal Vaginal Bl eeding, Dysmenorrhea, Dyspareunia, Genital Lesions, Genital Pruritis, Pelvic Pain, Prolapse Symptoms, Sexual Dysfunction, Vaginal Discharge, Vaginal Dryness, Vaginal Odor, Vaginal Pruritis, Other - Menstruation Menstruation: absent: As Per HPI, Amenorrhea, Amenorrhea/ Control, Currently Menstual, Cycle <21 Days, Cycle >35 Days, Cycle Variable, Menses 1-7 Days, Menses >/= 8 Days, Menses Variable, Cycle > 4 Weeks Between, No Menses for 6 Months, Heavy Menses, Light Menses, Normal Menses, Spotting Between Cycles, S/P Hysterectomy, Menopausal, Post Menopausal, Premenarche, Abnormal Vaginal Bleeding, Dysmenorrhea, Other - Musculoskeletal Musculoskeletal: absent: As Per HPI, Abnormal Gait, Arthralgias, Atrophy, Back Pain, Deformity, Joint Swelling, Limited Range of Motion, Loss of Height, Muscle Cramps, Muscle Weakness, Myalgias, Neck Pain, Numbness, Radiating Pain into Limb, Stiffness, Tingling, Other - Integumentary Integumentary: absent: As Per HPI, Acne, Alopecia, Bleeding Lesions, Change in Hair, Change in Nails, Change in Pigmentation, Changing Lesions, Dry Skin, Erythema, Furuncle, Hirsutism, Lesions, New Lesions, Non-Healing Lesions, Photosensitivity, Pruritus, Rash, Skin Pain, Skin Ulcer, Sores, Striae, Swelling, Unusual Bruising, Wounds, Jaundice, Other - Neurological Neurological: absent: As Per HPI, Abnormal Gait, Abnormal Hearing, Abnormal Movements, Abnormal Speech, Behavioral Changes, Burning Sensations, Confusion, Convulsions, Disequilibrium, Dizziness, Numbness, Focal Weakness, Frequent Falls, Headaches, Lack of Coordination, Loss of Vision, Memory Loss, Paresthesias, Radicular Pain, Restless Legs, Sensory Deficit, Syncope, Tingling, Tremor, Vertigo, Weakness, Other Visual Disturbances, Other - Psychiatric Psychiatric: absent: As Per HPI, Abnormal Sleep Pattern, Anhedonia, Anxiety, Auditory Hallucinations, Behavioral Changes, Change in Appetite, Change in L ibido, Confusion, Depression, Difficulty Concentrating, Hallucinations, Homicidal Ideation, Hopelessness, Irritability, Memory Loss, Mood Swings, Panic Attacks, Paranoia, Suicidal Ideation, Visual Hallucinations, Tactile Hallucinations, Other - Endocrine Endocrine: absent: As Per HPI, Change in Body Appearance, Change in Libido, Cold Intolorance, Deepening of Voice, Excessive Sweating, Fatigue, Flushing, Heat Intolorance, Increase in Ring/Shoe/Hat Size, Palpitations, Polydipsia, Polyphagia, Polyuria, Other - Hematologic/Lymphatic Hematologic: absent: As Per HPI, Easy Bleeding, Easy Bruising, Lymphadenopathy, Other Past Patient History - Past Medical History & Family History Past Medical History?: Yes - Past Social History Smoking Status: Never Smoked - CARDIAC Hx Atrial Fibrillation: No Hx Cardia Arrhythmia: No Hx Congestive Heart Failure: Yes Hx Hypercholesterolemia: Yes Hx Hypertension: Yes Hx Mitral Valve Prolapse: No Hx Pacemaker: No Hx Peripheral Edema: No - PULMONARY Hx Asthma: Yes Hx Bronchitis: Yes Hx Chronic Obstructive Pulmonary Disease (COPD): Yes Hx Emphysema: No Hx Pneumonia: Yes Hx Pulmonary Embolism: No Hx Sleep Apnea: No - NEUROLOGICAL Hx Alzheimer's Disease: No Hx Dementia: No Hx Migraine: No Hx Multiple Sclerosis: No Hx Parkinson's Disease: No Hx Seizures: No Hx Transient Ischemic Attacks (TIA): No - HEENT Hx HEENT Problems: No - RENAL Hx Chronic Kidney Disease: No Hx Kidney Stones: No - ENDOCRINE/METABOLIC Hx Hyperthyroidism: No Hx Hypothyroidism: No - HEMATOLOGICAL/ONCOLOGICAL Hx Anemia: No Hx Human Immunodeficiency Virus (HIV): No Hx Sickle Cell Disease: No - INTEGUMENTARY Hx Dermatological Problems: No - MUSCULOSKELETAL/RHEUMATOLOGICAL Hx Arthritis: No Hx Fractures: Yes Hx Osteoporosis: No Hx Rheumatoid Arthritis: No - GASTROINTESTINAL Hx Crohn's Disease: No Hx Diverticulitis: No Hx Gall Bladder Disease: No Hx Gastritis: No Hx Pancreatitis: No - GENITOURINARY/GYNECOLOGICAL Hx Sexually Transmitted Disorders: No - PSYCHIATRIC Hx Anxiety: Yes Hx Bipolar Disorder: No Hx Depression: Yes Hx Paranoia: Yes Hx Post Traumatic Stress Disorder: No Hx Schizophrenia: No - SURGICAL HISTORY Hx Appendectomy: No Hx Carotid Endarterectomy: No Hx Cholecystectomy: No Hx Coronary Artery Bypass Graft: No Hx Coronary Stent: No Hx Tonsillectomy: No - ANESTHESIA Hx Anesthesia: Yes Hx Anesthesia Reactions: No Hx Malignant Hyperthermia: No Meds Allergies/Adverse Reactions: Allergies Allergy/AdvReac Type Severity Reaction Status Date / Time No Known Allergies Allergy Verified 06/16/18 14:16 - Medications Medications: Current Medications Acetaminophen (Tylenol 325mg Tab) 650 mg PO Q6 PRN PRN Reason: Pain, moderate (4-7) Acetylcysteine (Acetylcysteine 20%) 2 ml INH RBID [facility] Last Admin: 08/18/18 07:37 Dose: 2 ml Albuterol Sulfate (Albuterol 0.083% Inhal Autumn (2.5 Mg/3 Ml) Ud) 2.5 mg INH RQ4 PRN PRN Reason: Shortness of Breath Albuterol/Ipratropium (Duoneb 3 Mg/0.5 Mg (3 Ml) Ud) 3 ml INH RQID [facility] Last Admin: 08/18/18 15:25 Dose: 3 ml Alendronate Sodium (Fosamax) 70 mg PO FRI [facility] Last Admin: 08/14/18 09:25 Dose: 70 mg Aspirin (Aspirin) 325 mg PO DAILY [facility] Last Admin: 08/18/18 09:41 Dose: 325 mg Atorvastatin Calcium (Lipitor) 40 mg PO HS [facility] Last Admin: 08/17/18 21:09 Dose: 40 mg Carvedilol (Coreg) 12.5 mg PO Q12 [facility] Last Admin: 08/18/18 09:15 Dose: 12.5 mg Clopidogrel Bisulfate (Plavix) 75 mg PO DAILY [facility] Last Admin: 08/18/18 09:17 Dose: 75 mg Docusate Sodium (Colace) 100 mg PO BID [facility] Last Admin: 08/18/18 09:14 Dose: 100 mg Enalapril Maleate (Vasotec) 20 mg PO DAILY [facility] Last Admin: 08/18/18 09:19 Dose: 20 mg Fluticasone Propionate (Flonase) 1 spr LUIS BID [facility] Last Admin: 08/18/18 09:16 Dose: 1 spr Furosemide (Lasix) 20 mg PO DAILY [facility] Last Admin: 08/14/18 09:20 Dose: 20 mg Glipizide (Glucotrol) 5 mg PO ACBD [facility] Cefepime HCl 2 gm/ Sodium (Chloride) 100 mls @ 100 mls/hr IVPB Q8H [facility]; Protocol Last Admin: 08/18/18 12:18 Dose: 100 mls/hr Clindamycin Phosphate (Cleocin) 600 mg in 50 mls @ 100 mls/hr IVPB Q8H [facility]; Protocol Last Admin: 08/18/18 09:14 Dose: 100 mls/hr Sodium Chloride (Sodium Chloride 0.45%) 1,000 mls @ 60 mls/hr IV .[id number] [facility] Stop: 08/18/18 21:06 Last Admin: 08/18/18 14:12 Dose: Not Given Lorazepam (Ativan) 0.5 mg PO Q12 [facility] Last Admin: 08/18/18 09:41 Dose: 0.5 mg Magnesium Hydroxide (Milk Of Magnesia) 30 ml PO DAILY PRN PRN Reason: Constipation Methylprednisolone (Solu-Medrol) 40 mg IVP DAILY [facility] Last Admin: 08/18/18 09:19 Dose: 40 mg Montelukast Sodium (Singulair) 10 mg PO HS [facility] Last Admin: 08/17/18 21:09 Dose: 10 mg Multivitamins/Minerals (Therapeutic-M Tab) 1 tab PO DAILY [facility] Last Admin: 08/18/18 09:19 Dose: 1 tab Pantoprazole Sodium (Protonix Ec Tab) 40 mg PO DAILY [facility] Last Admin: 08/18/18 09:17 Dose: 40 mg Tolvaptan (Samsca) 15 mg PO DAILY [facility] Last Admin: 08/18/18 09:18 Dose: 15 mg Physical Exam - Constitutional Appears: No Acute Distress, Chronically Ill - Head Exam Head Exam: ATRAUMATIC, NORMOCEPHALIC - Eye Exam Eye Exam: EOMI, PERRL. absent: Scleral icterus - ENT Exam ENT Exam: Mucous Membranes Dry, Normal External Ear Exam, Normal Oropharynx - Neck Exam Neck exam: Negative for: Lymphadenopathy - Respiratory Exam Respiratory Exam: Decreased Breath Sounds, Prolonged Expiratory Phase, Rhonchi. absent: Respiratory Distress - Cardiovascular Exam Cardiovascular Exam: REGULAR RHYTHM, +S1, +S2 - GI/Abdominal Exam GI & Abdominal Exam: Diminished Bowel Sounds, Distended, Soft. absent: Tenderness - Rectal Exam Rectal Exam: Deferred - Exam Exam: NORMAL INSPECTION - Extremities Exam Extremities exam: Positive for: pedal pulses present. Negative for: calf tenderness, pedal edema, tenderness - Back Exam Back exam: absent: CVA tenderness (L), CVA tenderness (R), paraspinal tenderness - Neurological Exam Neurological exam: Alert, CN II-XII Intact, Oriented x3, Reflexes Normal - Psychiatric Exam Psychiatric exam: Normal Mood - Skin Skin Exam: Dry, Intact Results - Vital Signs Recent Vital Signs: Last Vital Signs Temp 98.3 F 08/18/18 13:05 Pulse 70 08/18/18 13:05 Resp 18 08/18/18 13:05 BP 100/62 08/18/18 13:05 Pulse Ox 87 L 08/18/18 13:05 - Labs Result Diagrams: 08/17/18 10:46 08/18/18 04:25 Labs: Laboratory Results - last 24 hr 08/17/18 08/17/18 08/17/18 08:45 11:54 15:51 Sodium Potassium Chloride Carbon Dioxide Anion Gap BUN Creatinine Est GFR ( Amer) Est GFR (Non-Af Amer) POC Glucose (mg/dL) 177 H Random Glucose Hemoglobin A1c Calcium Magnesium Total Bilirubin GGT AST ALT Alkaline Phosphatase Total Protein Albumin Globulin Albumin/Globulin Ratio Alpha Fetoprotein Carcinoembryonic Ag CA 19-9 Antigen Folate > 20.0 TSH 3rd Generation Stool Occult Blood Negative Hepatitis A IgM Ab Hep Bs Antigen Hep B Core IgM Ab Hepatitis C Antibody 08/17/18 08/18/18 08/18/18 22:07 04:25 04:25 Sodium 134 Potassium 5.0 Chloride 97 L Carbon Dioxide 23 Anion Gap 19 BUN 37 H Creatinine 0.9 Est GFR ( Amer) > 60 Est GFR (Non-Af Amer) 59 POC Glucose (mg/dL) 207 H Random Glucose 173 H Hemoglobin A1c Calcium 7.7 L Magnesium 2.5 H Total Bilirubin 0.8 GGT 1306 H AST 278 H ALT 220 H Alkaline Phosphatase 240 H Total Protein 5.4 L Albumin 3.2 L Globulin 2.2 Albumin/Globulin Ratio 1.4 Alpha Fetoprotein 2.3 Carcinoembryonic Ag 130.0 H CA 19-9 Antigen 326 H Folate TSH 3rd Generation 0.55 Stool Occult Blood Hepatitis A IgM Ab Hep Bs Antigen Hep B Core IgM Ab Hepatitis C Antibody 08/18/18 08/18/18 08/18/18 04:25 04:25 05:37 Sodium Potassium Chloride Carbon Dioxide Anion Gap BUN Creatinine Est GFR ( Amer) Est GFR (Non-Af Amer) POC Glucose (mg/dL) 185 H Random Glucose Hemoglobin A1c 6.0 Calcium Magnesium Total Bilirubin GGT AST ALT Alkaline Phosphatase Total Protein Albumin Globulin Albumin/Globulin Ratio Alpha Fetoprotein Carcinoembryonic Ag CA 19-9 Antigen Folate TSH 3rd Generation Stool Occult Blood Hepatitis A IgM Ab Negative Hep Bs Antigen Negative Hep B Core IgM Ab Negative Hepatitis C Antibody Negative 08/18/18 10:51 Sodium Potassium Chloride Carbon Dioxide Anion Gap BUN Creatinine Est GFR ( Amer) Est GFR (Non-Af Amer) POC Glucose (mg/dL) 253 H Random Glucose Hemoglobin A1c Calcium Magnesium Total Bilirubin GGT AST ALT Alkaline Phosphatase Total Protein Albumin Globulin Albumin/Globulin Ratio Alpha Fetoprotein Carcinoembryonic Ag CA 19-9 Antigen Folate TSH 3rd Generation Stool Occult Blood Hepatitis A IgM Ab Hep Bs Antigen Hep B Core IgM Ab Hepatitis C Antibody Assessment & Plan (1) Elevated LFTs Status: Acute (2) HCAP (healthcare-associated pneumonia) Status: Acute (3) NSTEMI (non-ST elevated myocardial infarction) Status: Acute Priority: High (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
--- NOTE | 2018-08-18 20:41 | CP.PCM.PN ---
Subjective - Date & Time of Evaluation Date of Evaluation: 08/18/18 Time of Evaluation: 22:22 - Subjective Subjective: Metastatic liver dx elevated CEA Ca 19-9 Ag Long d/w son Objective - Vital Signs/Intake and Output Vital Signs (last 24 hours): Temp Pulse Resp BP Pulse Ox 98.1 F 89 20 109/69 97 08/18/18 19:57 08/18/18 19:57 08/18/18 19:57 08/18/18 19:57 08/18/18 19:57 - Medications Medications: Current Medications Acetaminophen (Tylenol 325mg Tab) 650 mg PO Q6 PRN PRN Reason: Pain, moderate (4-7) Acetylcysteine (Acetylcysteine 20%) 2 ml INH RBID [facility] [place] Last Admin: 08/18/18 19:37 Dose: 2 ml Albuterol Sulfate (Albuterol 0.083% Inhal Autumn (2.5 Mg/3 Ml) Ud) 2.5 mg INH RQ4 PRN PRN Reason: Shortness of Breath Albuterol/Ipratropium (Duoneb 3 Mg/0.5 Mg (3 Ml) Ud) 3 ml INH RQID [facility] [place] Last Admin: 08/18/18 19:37 Dose: 3 ml Alendronate Sodium (Fosamax) 70 mg PO FRI [facility] Last Admin: 08/14/18 09:25 Dose: 70 mg Aspirin (Aspirin) 325 mg PO DAILY [facility] [place] Last Admin: 08/18/18 09:41 Dose: 325 mg Atorvastatin Calcium (Lipitor) 40 mg PO HS [facility] [place] Last Admin: 08/17/18 21:09 Dose: 40 mg Carvedilol (Coreg) 12.5 mg PO Q12 [facility] [place] Last Admin: 08/18/18 09:15 Dose: 12.5 mg Clopidogrel Bisulfate (Plavix) 75 mg PO DAILY [facility] Last Admin: 08/18/18 09:17 Dose: 75 mg Docusate Sodium (Colace) 100 mg PO BID [facility] [place] Last Admin: 08/18/18 17:04 Dose: 100 mg Enalapril Maleate (Vasotec) 20 mg PO DAILY [facility] [place] Last Admin: 08/18/18 09:19 Dose: 20 mg Fluticasone Propionate (Flonase) 1 spr LUIS BID [facility] [place] Last Admin: 08/18/18 17:03 Dose: 1 spr Furosemide (Lasix) 20 mg PO DAILY [facility] [place] Last Admin: 08/14/18 09:20 Dose: 20 mg Glipizide (Glucotrol) 5 mg PO ACBD [facility] [place] Last Admin: 08/18/18 17:03 Dose: 5 mg Cefepime HCl 2 gm/ Sodium (Chloride) 100 mls @ 100 mls/hr IVPB Q8H [facility] [place]; Protocol Last Admin: 08/18/18 18:53 Dose: 100 mls/hr Clindamycin Phosphate (Cleocin) 600 mg in 50 mls @ 100 mls/hr IVPB Q8H [facility] [place]; Protocol Last Admin: 08/18/18 17:09 Dose: 100 mls/hr Sodium Chloride (Sodium Chloride 0.45%) 1,000 mls @ 60 mls/hr IV .[id number] [facility] [place] Stop: 08/18/18 21:06 Last Admin: 08/18/18 14:12 Dose: Not Given Lorazepam (Ativan) 0.5 mg PO Q12 [facility] [place] Last Admin: 08/18/18 09:41 Dose: 0.5 mg Magnesium Hydroxide (Milk Of Magnesia) 30 ml PO DAILY PRN PRN Reason: Constipation Methylprednisolone (Solu-Medrol) 40 mg IVP DAILY [facility] [place] Last Admin: 08/18/18 09:19 Dose: 40 mg Montelukast Sodium (Singulair) 10 mg PO HS [facility] [place] Last Admin: 08/17/18 21:09 Dose: 10 mg Multivitamins/Minerals (Therapeutic-M Tab) 1 tab PO DAILY [facility] [place] Last Admin: 08/18/18 09:19 Dose: 1 tab Pantoprazole Sodium (Protonix Ec Tab) 40 mg PO DAILY [facility] [place] Last Admin: 08/18/18 09:17 Dose: 40 mg Tolvaptan (Samsca) 15 mg PO DAILY [facility] [place] Last Admin: 08/18/18 09:18 Dose: 15 mg - Labs Labs: 08/17/18 10:46 08/18/18 04:25 - Respiratory Exam Respiratory Exam: NORMAL BREATHING PATTERN - Cardiovascular Exam Cardiovascular Exam: REGULAR RHYTHM - GI/Abdominal Exam GI & Abdominal Exam: Normal Bowel Sounds Assessment and Plan - Assessment and Plan (Free Text) Assessment: Metastatic liver dx elevated CEA Ca 19-9 Ag Long d/w son Oncology Hyperkalemia [facility] Hyponatremia 2 to SIADH ?? Samsca New NSTEMI + CE new S/P Acute ant wall CA O2 ASA Plavix JAYESH B-[place] Nitrates Lasix Norvasc Cardiology Last Echo good LV fxn SOB COPD/ Asthma CAP?? Prov Atrovent Steroids ABX Pulmonary consult Anemia Hx Rectal bleeding stable Hx rectal prolapse Hx hemorrhoids Refusing w/u
[2018-08-19] MEDS: Clindamycin 600mg/50ml D5W 600 MG/50 ML VIAL IVPB SCH ×3 (00:46→16:21)
[2018-08-19] MEDS: Cefepime 2 GM in Sodium Chloride 0.9% 100 ML IVPB SCH ×3 (03:06→20:14)
[2018-08-19 05:32] LABS: HEMOGLOBIN 8.7 g/dL (12.0-16.0); MEAN CELL VOLUME 99.8 fl (81.0-99.0); MEAN CORPUSCULAR HEMOGLOBIN 32.5 pg (27.0-31.0); MEAN CORPUSCULAR HGB CONC 32.5 g/dL (33.0-37.0); RBC 2.67 Mil/uL (3.80-5.20); WHITE BLOOD COUNT 14.1 K/uL (4.8-10.8)
[2018-08-19 05:58] LABS: ALB/GLOB RATIO 1.3 (1.0-2.1); ALBUMIN 3.3 g/dL (3.5-5.0); CALCIUM 7.7 mg/dL (8.4-10.2)
[2018-08-19] MEDS: Acetylcysteine 20% Inhal Soln (4ml) INH SCH ×2 (07:34→19:27)
[2018-08-19] MEDS: Albuterol-Ipratrop 3 mg / 0.5 (3 ml) UD INH SCH ×4 (07:34→19:27)
[2018-08-19] MEDS: MethylPREDNISolone 40 mg Vial IVP SCH (08:31)
--- NOTE | 2018-08-19 09:07 | CP.PCM.CON ---
History of Present Illness - History of Present Illness History of Present Illness: 88 year old female with a history of asthma, CAD, HTN, DM, admitted with shortness of breath, found to have anemia and liver lesions concerning for metastatic disease. I am unable to obtain a history from the patient as she is moaning. Per nursing, her son asked her if she was in pain this morning and she replied no. Review of her records shows a normal hgb in 05/2018 and a current danielle in the 8's. Review of her imaging shows b/l pneumonia and pleural effusions, a right scapular fracture and wide spread liver lesions concerning for metastasis. Her CEA and CA 19-9 are elevated. Past medical, surgical, family, social history cannot be obtained from the patient. Allergies: NKA per documentation Review of systems cannot be obtained. Past Patient History - Past Medical History & Family History Past Medical History?: Yes - Past Social History Smoking Status: Never Smoked - CARDIAC Hx Atrial Fibrillation: No Hx Cardia Arrhythmia: No Hx Congestive Heart Failure: Yes Hx Hypercholesterolemia: Yes Hx Hypertension: Yes Hx Mitral Valve Prolapse: No Hx Pacemaker: No Hx Peripheral Edema: No - PULMONARY Hx Asthma: Yes Hx Bronchitis: Yes Hx Chronic Obstructive Pulmonary Disease (COPD): Yes Hx Emphysema: No Hx Pneumonia: Yes Hx Pulmonary Embolism: No Hx Sleep Apnea: No - NEUROLOGICAL Hx Alzheimer's Disease: No Hx Dementia: No Hx Migraine: No Hx Multiple Sclerosis: No Hx Parkinson's Disease: No Hx Seizures: No Hx Transient Ischemic Attacks (TIA): No - HEENT Hx HEENT Problems: No - RENAL Hx Chronic Kidney Disease: No Hx Kidney Stones: No - ENDOCRINE/METABOLIC Hx Hyperthyroidism: No Hx Hypothyroidism: No - HEMATOLOGICAL/ONCOLOGICAL Hx Anemia: No Hx Human Immunodeficiency Virus (HIV): No Hx Sickle Cell Disease: No - INTEGUMENTARY Hx Dermatological Problems: No - MUSCULOSKELETAL/RHEUMATOLOGICAL Hx Arthritis: No Hx Fractures: Yes Hx Osteoporosis: No Hx Rheumatoid Arthritis: No - GASTROINTESTINAL Hx Crohn's Disease: No Hx Diverticulitis: No Hx Gall Bladder Disease: No Hx Gastritis: No Hx Pancreatitis: No - GENITOURINARY/GYNECOLOGICAL Hx Sexually Transmitted Disorders: No - PSYCHIATRIC Hx Anxiety: Yes Hx Bipolar Disorder: No Hx Depression: Yes Hx Paranoia: Yes Hx Post Traumatic Stress Disorder: No Hx Schizophrenia: No - SURGICAL HISTORY Hx Appendectomy: No Hx Carotid Endarterectomy: No Hx Cholecystectomy: No Hx Coronary Artery Bypass Graft: No Hx Coronary Stent: No Hx Tonsillectomy: No - ANESTHESIA Hx Anesthesia: Yes Hx Anesthesia Reactions: No Hx Malignant Hyperthermia: No Meds Allergies/Adverse Reactions: Allergies Allergy/AdvReac Type Severity Reaction Status Date / Time No Known Allergies Allergy Verified 06/16/18 14:16 - Medications Medications: Current Medications Acetaminophen (Tylenol 325mg Tab) 650 mg PO Q6 PRN PRN Reason: Pain, moderate (4-7) Acetylcysteine (Acetylcysteine 20%) 2 ml INH RBID [facility] Last Admin: 08/19/18 07:34 Dose: 2 ml Albuterol Sulfate (Albuterol 0.083% Inhal Autumn (2.5 Mg/3 Ml) Ud) 2.5 mg INH RQ4 PRN PRN Reason: Shortness of Breath Albuterol/Ipratropium (Duoneb 3 Mg/0.5 Mg (3 Ml) Ud) 3 ml INH RQID [facility] Last Admin: 08/19/18 07:34 Dose: 3 ml Alendronate Sodium (Fosamax) 70 mg PO FRI [facility] Last Admin: 08/14/18 09:25 Dose: 70 mg Aspirin (Aspirin) 325 mg PO DAILY [facility] Last Admin: 08/18/18 09:41 Dose: 325 mg Atorvastatin Calcium (Lipitor) 40 mg PO HS [facility] Last Admin: 08/18/18 22:07 Dose: 40 mg Carvedilol (Coreg) 12.5 mg PO Q12 [facility] Last Admin: 08/18/18 09:15 Dose: 12.5 mg Clopidogrel Bisulfate (Plavix) 75 mg PO DAILY [facility] Last Admin: 08/18/18 09:17 Dose: 75 mg Docusate Sodium (Colace) 100 mg PO BID [facility] Last Admin: 08/18/18 17:04 Dose: 100 mg Enalapril Maleate (Vasotec) 20 mg PO DAILY [facility] Last Admin: 08/18/18 09:19 Dose: 20 mg Fluticasone Propionate (Flonase) 1 spr LUIS BID [facility] Last Admin: 08/18/18 17:03 Dose: 1 spr Furosemide (Lasix) 20 mg PO DAILY [facility] Last Admin: 08/14/18 09:20 Dose: 20 mg Glipizide (Glucotrol) 5 mg PO ACBD [facility] Last Admin: 08/18/18 17:03 Dose: 5 mg Cefepime HCl 2 gm/ Sodium (Chloride) 100 mls @ 100 mls/hr IVPB Q8H [facility]; Protocol Last Admin: 08/19/18 03:06 Dose: 100 mls/hr Clindamycin Phosphate (Cleocin) 600 mg in 50 mls @ 100 mls/hr IVPB Q8H [facility]; Protocol Last Admin: 08/19/18 08:33 Dose: 100 mls/hr Lorazepam (Ativan) 0.5 mg PO Q12 [facility] Last Admin: 08/18/18 22:17 Dose: Not Given Magnesium Hydroxide (Milk Of Magnesia) 30 ml PO DAILY PRN PRN Reason: Constipation Methylprednisolone (Solu-Medrol) 40 mg IVP DAILY [facility] Last Admin: 08/19/18 08:31 Dose: 40 mg Montelukast Sodium (Singulair) 10 mg PO HS [facility] Last Admin: 08/18/18 22:07 Dose: 10 mg Multivitamins/Minerals (Therapeutic-M Tab) 1 tab PO DAILY [facility] Last Admin: 08/18/18 09:19 Dose: 1 tab Pantoprazole Sodium (Protonix Ec Tab) 40 mg PO DAILY [facility] Last Admin: 08/18/18 09:17 Dose: 40 mg Tolvaptan (Samsca) 15 mg PO DAILY [facility] Last Admin: 08/18/18 09:18 Dose: 15 mg Physical Exam - Head Exam Head Exam: ATRAUMATIC - Eye Exam Eye Exam: Normal appearance - ENT Exam ENT Exam: Mucous Membranes Dry - Respiratory Exam Respiratory Exam: Decreased Breath Sounds - Cardiovascular Exam Cardiovascular Exam: +S1, +S2 - GI/Abdominal Exam GI & Abdominal Exam: Normal Bowel Sounds - Extremities Exam Extremities exam: Positive for: pedal edema - Neurological Exam Neurological exam: Altered - Psychiatric Exam Psychiatric exam: Anxious Results - Vital Signs Recent Vital Signs: Last Vital Signs Temp 98.1 F 08/19/18 07:48 Pulse 126 H 08/19/18 07:48 Resp 18 08/19/18 07:48 BP 147/87 08/19/18 07:48 Pulse Ox 93 L 08/19/18 07:48 - Labs Result Diagrams: 08/19/18 04:30 08/19/18 04:30 Labs: Laboratory Results - last 24 hr 08/16/18 08/17/18 08/17/18 12:50 08:45 11:54 WBC RBC Hgb Hct MCV MCH MCHC RDW Plt Count Sodium Potassium Chloride Carbon Dioxide Anion Gap BUN Creatinine Est GFR ( Amer) Est GFR (Non-Af Amer) POC Glucose (mg/dL) Random Glucose Hemoglobin A1c Calcium Phosphorus Magnesium Total Bilirubin GGT AST ALT Alkaline Phosphatase Total Protein Albumin Globulin Albumin/Globulin Ratio Carcinoembryonic Ag CA 19-9 Antigen Folate > 20.0 Stool Occult Blood Negative Hepatitis A IgM Ab Hep Bs Antigen Hep B Core IgM Ab Hepatitis C Antibody Ur Strep pneumoniae Ag Not detected 08/18/18 08/18/18 08/18/18 04:25 04:25 04:25 WBC RBC Hgb Hct MCV MCH MCHC RDW Plt Count Sodium Potassium Chloride Carbon Dioxide Anion Gap BUN Creatinine Est GFR ( Amer) Est GFR (Non-Af Amer) POC Glucose (mg/dL) Random Glucose Hemoglobin A1c 6.0 Calcium Phosphorus Magnesium Total Bilirubin GGT 1306 H AST ALT Alkaline Phosphatase Total Protein Albumin Globulin Albumin/Globulin Ratio Carcinoembryonic Ag 130.0 H CA 19-9 Antigen 326 H Folate Stool Occult Blood Hepatitis A IgM Ab Negative Hep Bs Antigen Negative Hep B Core IgM Ab Negative Hepatitis C Antibody Negative Ur Strep pneumoniae Ag 08/18/18 08/18/18 08/18/18 10:51 16:01 21:28 WBC RBC Hgb Hct MCV MCH MCHC RDW Plt Count Sodium Potassium Chloride Carbon Dioxide Anion Gap BUN Creatinine Est GFR ( Amer) Est GFR (Non-Af Amer) POC Glucose (mg/dL) 253 H 203 H 153 H Random Glucose Hemoglobin A1c Calcium Phosphorus Magnesium Total Bilirubin GGT AST ALT Alkaline Phosphatase Total Protein Albumin Globulin Albumin/Globulin Ratio Carcinoembryonic Ag CA 19-9 Antigen Folate Stool Occult Blood Hepatitis A IgM Ab Hep Bs Antigen Hep B Core IgM Ab Hepatitis C Antibody Ur Strep pneumoniae Ag 08/19/18 08/19/18 08/19/18 04:30 04:30 05:36 WBC 14.1 H RBC 2.67 L Hgb 8.7 L Hct 26.6 L MCV 99.8 H MCH 32.5 H MCHC 32.5 L RDW 17.0 H Plt Count 180 Sodium 136 Potassium 4.6 Chloride 101 Carbon Dioxide 20 L Anion Gap 20 BUN 44 H Creatinine 1.1 Est GFR ( Amer) 57 Est GFR (Non-Af Amer) 47 POC Glucose (mg/dL) 160 H Random Glucose 147 H Hemoglobin A1c Calcium 7.7 L Phosphorus 3.4 Magnesium 2.7 H Total Bilirubin 1.0 GGT AST 624 H D ALT 417 H D Alkaline Phosphatase 261 H Total Protein 5.7 L Albumin 3.3 L Globulin 2.5 Albumin/Globulin Ratio 1.3 Carcinoembryonic Ag CA 19-9 Antigen Folate Stool Occult Blood Hepatitis A IgM Ab Hep Bs Antigen Hep B Core IgM Ab Hepatitis C Antibody Ur Strep pneumoniae Ag Assessment & Plan (1) Anemia Assessment and Plan: mild CKD and likely chronic disease from underlying malignancy will give a dose of Procrit in an attempt to decrease transfusion requirements no iron/b12/folate deficiency transfusion support PRN Status: Acute (2) Liver masses Assessment and Plan: likely metastatic disease ? from GI tract ? pancreas elevated CEA and CA 19-9 noted given debility, the patient would not be a chemotherapy candidate if a diagnosis of cancer is attempted supportive care Status: Acute (3) Leukocytosis Assessment and Plan: on antibiotics Thank you for this interesting consult. Status: Acute
[2018-08-19] MEDS: Pantoprazole 40 mg EC Tab PO SCH ×2 (09:37→09:46)
[2018-08-19] MEDS: Tolvaptan 15 MG TAB PO SCH ×2 (09:37→09:46)
[2018-08-19] MEDS: Multivitamin With Minerals Tab PO SCH ×2 (09:38→09:45)
--- NOTE | 2018-08-19 09:44 | CP.PCM.PN ---
Subjective - Date & Time of Evaluation Date of Evaluation: 08/19/18 Time of Evaluation: 09:41 - Subjective Subjective: Seen on rounds in telemetry. Lying in bed moaning with eyes closed. Does not follow commands. Nursing states son asked her about pain earlier this morning and she responded 'no'. Having small BM's. Eating small quantities at each meal. Has remained afebrile, normotensive and adequately oxygenated. CT chest and abdomen reviewed. Bilateral pleural effusions with atelectasis, widespread hepatic mets. Liver enzymes continue to increase. WBC stable at 14, Hgb 8.7, Plts 180. Dependant edema without cyanosis, no calf tenderness. No dullness on percussion of the anterior chest wall. Breath sounds absent in the left base, no audible wheezes. Heart sounds distant, irregular. Pleural effusions bilaterally with basal atelectasis LLL. Metastatic liver disease with undetermined primary. Prognosis is poor for recovery. Would not subject her to flexible bronchoscopy. Spoke with Heme/Onc. Objective - Vital Signs/Intake and Output Vital Signs (last 24 hours): Temp Pulse Resp BP Pulse Ox 98.1 F 126 H 18 147/87 93 L 08/19/18 07:48 08/19/18 07:48 08/19/18 07:48 08/19/18 07:48 08/19/18 07:48 Intake and Output: 08/18/18 08/19/18 23:59 11:59 Intake Total 300 Output Total 300 Balance 0 - Medications Medications: Current Medications Acetaminophen (Tylenol 325mg Tab) 650 mg PO Q6 PRN PRN Reason: Pain, moderate (4-7) Acetylcysteine (Acetylcysteine 20%) 2 ml INH RBID [facility] Last Admin: 08/19/18 07:34 Dose: 2 ml Albuterol Sulfate (Albuterol 0.083% Inhal Autumn (2.5 Mg/3 Ml) Ud) 2.5 mg INH RQ4 PRN PRN Reason: Shortness of Breath Albuterol/Ipratropium (Duoneb 3 Mg/0.5 Mg (3 Ml) Ud) 3 ml INH RQID [facility] Last Admin: 08/19/18 07:34 Dose: 3 ml Alendronate Sodium (Fosamax) 70 mg PO FRI [facility] Last Admin: 08/14/18 09:25 Dose: 70 mg Aspirin (Aspirin) 325 mg PO DAILY [facility] Last Admin: 08/18/18 09:41 Dose: 325 mg Atorvastatin Calcium (Lipitor) 40 mg PO HS [facility] Last Admin: 08/18/18 22:07 Dose: 40 mg Carvedilol (Coreg) 12.5 mg PO Q12 [facility] Last Admin: 08/18/18 09:15 Dose: 12.5 mg Clopidogrel Bisulfate (Plavix) 75 mg PO DAILY [facility] Last Admin: 08/19/18 09:36 Dose: 75 mg Docusate Sodium (Colace) 100 mg PO BID [facility] Last Admin: 08/19/18 09:32 Dose: 100 mg Enalapril Maleate (Vasotec) 20 mg PO DAILY [facility] Last Admin: 08/18/18 09:19 Dose: 20 mg Fluticasone Propionate (Flonase) 1 spr LUIS BID [facility] Last Admin: 08/19/18 09:32 Dose: 1 spr Furosemide (Lasix) 20 mg PO DAILY [facility] Last Admin: 08/14/18 09:20 Dose: 20 mg Glipizide (Glucotrol) 5 mg PO ACBD [facility] Last Admin: 08/19/18 09:33 Dose: 5 mg Cefepime HCl 2 gm/ Sodium (Chloride) 100 mls @ 100 mls/hr IVPB Q8H [facility]; Protocol Last Admin: 08/19/18 03:06 Dose: 100 mls/hr Clindamycin Phosphate (Cleocin) 600 mg in 50 mls @ 100 mls/hr IVPB Q8H [facility]; Protocol Last Admin: 08/19/18 08:33 Dose: 100 mls/hr Lorazepam (Ativan) 0.5 mg PO Q12 [facility] Last Admin: 08/18/18 22:17 Dose: Not Given Magnesium Hydroxide (Milk Of Magnesia) 30 ml PO DAILY PRN PRN Reason: Constipation Methylprednisolone (Solu-Medrol) 40 mg IVP DAILY [facility] Last Admin: 08/19/18 08:31 Dose: 40 mg Montelukast Sodium (Singulair) 10 mg PO HS [facility] Last Admin: 08/18/18 22:07 Dose: 10 mg Multivitamins/Minerals (Therapeutic-M Tab) 1 tab PO DAILY [facility] Last Admin: 08/19/18 09:38 Dose: 1 tab Pantoprazole Sodium (Protonix Ec Tab) 40 mg PO DAILY [facility] Last Admin: 08/19/18 09:37 Dose: 40 mg Tolvaptan (Samsca) 15 mg PO DAILY [facility] Last Admin: 08/19/18 09:37 Dose: 15 mg - Labs Labs: 08/19/18 04:30 08/19/18 04:30 Assessment and Plan (1) NSTEMI (non-ST elevated myocardial infarction) Status: Acute (2) Pneumonia Status: Acute (3) Bronchial asthma Status: Chronic
--- NOTE | 2018-08-19 09:56 | CARD ---
APPROVED REPORT Date of service: 08/19/2018 EKG Measurement Heart [id number] <Conclusion> Atrial fibrillation with rapid ventricular response ST & T wave abnormality, consider anterolateral ischemia Abnormal ECG
[2018-08-19] MEDS ORDERED: Epoetin Alfa 20000 UNIT/ML (RENAL DOSE) SC ONE (12:42)
--- NOTE | 2018-08-19 13:20 | CP.PCM.PN ---
Subjective - Date & Time of Evaluation Date of Evaluation: 08/19/18 Time of Evaluation: 10:00 - Subjective Subjective: DENIES CHEST PAIN Objective - Vital Signs/Intake and Output Vital Signs (last 24 hours): Temp Pulse Resp BP Pulse Ox 99.2 F 92 H 18 114/74 90 L 08/19/18 12:27 08/19/18 12:27 08/19/18 12:27 08/19/18 12:27 08/19/18 12:27 Intake and Output: 08/19/18 08/19/18 06:59 18:59 Intake Total 300 Output Total 300 Balance 0 - Medications Medications: Current Medications Acetaminophen (Tylenol 325mg Tab) 650 mg PO Q6 PRN PRN Reason: Pain, moderate (4-7) Acetylcysteine (Acetylcysteine 20%) 2 ml INH RBID [facility] Last Admin: 08/19/18 07:34 Dose: 2 ml Albuterol Sulfate (Albuterol 0.083% Inhal Autumn (2.5 Mg/3 Ml) Ud) 2.5 mg INH RQ4 PRN PRN Reason: Shortness of Breath Albuterol/Ipratropium (Duoneb 3 Mg/0.5 Mg (3 Ml) Ud) 3 ml INH RQID [facility] Last Admin: 08/19/18 11:23 Dose: 3 ml Alendronate Sodium (Fosamax) 70 mg PO FRI [facility] Last Admin: 08/14/18 09:25 Dose: 70 mg Aspirin (Aspirin) 325 mg PO DAILY [facility] Last Admin: 08/19/18 09:46 Dose: Not Given Atorvastatin Calcium (Lipitor) 40 mg PO HS [facility] Last Admin: 08/18/18 22:07 Dose: 40 mg Carvedilol (Coreg) 12.5 mg PO Q12 [facility] Last Admin: 08/18/18 09:15 Dose: 12.5 mg Clopidogrel Bisulfate (Plavix) 75 mg PO DAILY [facility] Last Admin: 08/19/18 09:46 Dose: Not Given Docusate Sodium (Colace) 100 mg PO BID [facility] Last Admin: 08/19/18 09:44 Dose: Not Given Enalapril Maleate (Vasotec) 20 mg PO DAILY [facility] Last Admin: 08/18/18 09:19 Dose: 20 mg Epoetin Dereje (Procrit) 20,000 unit SC ONCE ONE Stop: 08/19/18 12:43 Fluticasone Propionate (Flonase) 1 spr LUIS BID [facility] Last Admin: 08/19/18 09:32 Dose: 1 spr Furosemide (Lasix) 20 mg PO DAILY [facility] Last Admin: 08/14/18 09:20 Dose: 20 mg Glipizide (Glucotrol) 5 mg PO ACBD [facility] Last Admin: 08/19/18 09:46 Dose: Not Given Cefepime HCl 2 gm/ Sodium (Chloride) 100 mls @ 100 mls/hr IVPB Q8H [facility]; Protocol Last Admin: 08/19/18 12:10 Dose: 100 mls/hr Clindamycin Phosphate (Cleocin) 600 mg in 50 mls @ 100 mls/hr IVPB Q8H [facility]; Protocol Last Admin: 08/19/18 08:33 Dose: 100 mls/hr Lorazepam (Ativan) 0.5 mg PO Q12 [facility] Last Admin: 08/19/18 09:46 Dose: Not Given Magnesium Hydroxide (Milk Of Magnesia) 30 ml PO DAILY PRN PRN Reason: Constipation Methylprednisolone (Solu-Medrol) 40 mg IVP DAILY [facility] Last Admin: 08/19/18 08:31 Dose: 40 mg Montelukast Sodium (Singulair) 10 mg PO HS [facility] Last Admin: 08/18/18 22:07 Dose: 10 mg Multivitamins/Minerals (Therapeutic-M Tab) 1 tab PO DAILY [facility] Last Admin: 08/19/18 09:45 Dose: Not Given Pantoprazole Sodium (Protonix Ec Tab) 40 mg PO DAILY [facility] Last Admin: 08/19/18 09:46 Dose: Not Given Tolvaptan (Samsca) 15 mg PO DAILY [facility] Last Admin: 08/19/18 09:46 Dose: Not Given - Labs Labs: 08/19/18 04:30 08/19/18 04:30 - Respiratory Exam Respiratory Exam: Decreased Breath Sounds - Cardiovascular Exam Cardiovascular Exam: Irregular Rhythm, +S1, +S2 - Additional Findings Additional 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: 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 ATRIAL FIBRILLATION WITH VARIABLE RATES, 92 BPM AT THE PRESENT TIME PATIENT WAS HYPOTENSIVE IN THE AFTERNOON YESTERDAY SO CARVEDILOL AND ENALAPRIL WERE PLACED ON HOLD AND SHE RECEIVED IV FLUIDS AND BP IS BETTER TODAY Assessment and Plan - Assessment and Plan (Free Text) Assessment: CAD WITH NSTEMI ATRIAL FIBRILLATION HYPERTENSION HYPERLIPIDEMIA LIVER METS Plan: ENALAPRIL AND CARVEDILOL ON HOLD DUE TO HYPOTENSION YESTERDAY CONTINUE ASPIRIN, CLOPIDOGREL, ATORVASTATIN, ANTIBIOTICS AND COPD MEDS NOTE: FULL ANTICOAGULATION AND DIGITALIZATION FOR ATRIAL FIBRILLATION WERE NOT STARTED DUE TO LIVER DISEASE
--- NOTE | 2018-08-19 13:23 | CP.PCM.PN ---
Subjective - Date & Time of Evaluation Date of Evaluation: 08/19/18 Time of Evaluation: 08:00 - Subjective Subjective: events noted DR Khanna on board Objective - Vital Signs/Intake and Output Vital Signs (last 24 hours): Temp Pulse Resp BP Pulse Ox 99.2 F 92 H 18 114/74 90 L 08/19/18 12:27 08/19/18 12:27 08/19/18 12:27 08/19/18 12:27 08/19/18 12:27 Intake and Output: 08/19/18 08/19/18 06:59 18:59 Intake Total 300 Output Total 300 Balance 0 - Medications Medications: Current Medications Acetaminophen (Tylenol 325mg Tab) 650 mg PO Q6 PRN PRN Reason: Pain, moderate (4-7) Acetylcysteine (Acetylcysteine 20%) 2 ml INH RBID [facility] Last Admin: 08/19/18 07:34 Dose: 2 ml Albuterol Sulfate (Albuterol 0.083% Inhal Autumn (2.5 Mg/3 Ml) Ud) 2.5 mg INH RQ4 PRN PRN Reason: Shortness of Breath Albuterol/Ipratropium (Duoneb 3 Mg/0.5 Mg (3 Ml) Ud) 3 ml INH RQID [facility] Last Admin: 08/19/18 11:23 Dose: 3 ml Alendronate Sodium (Fosamax) 70 mg PO FRI [facility] Last Admin: 08/14/18 09:25 Dose: 70 mg Aspirin (Aspirin) 325 mg PO DAILY [facility] Last Admin: 08/19/18 09:46 Dose: Not Given Atorvastatin Calcium (Lipitor) 40 mg PO HS [facility] Last Admin: 08/18/18 22:07 Dose: 40 mg Carvedilol (Coreg) 12.5 mg PO Q12 [facility] Last Admin: 08/18/18 09:15 Dose: 12.5 mg Clopidogrel Bisulfate (Plavix) 75 mg PO DAILY [facility] Last Admin: 08/19/18 09:46 Dose: Not Given Docusate Sodium (Colace) 100 mg PO BID [facility] Last Admin: 08/19/18 09:44 Dose: Not Given Enalapril Maleate (Vasotec) 20 mg PO DAILY [facility] Last Admin: 08/18/18 09:19 Dose: 20 mg Fluticasone Propionate (Flonase) 1 spr LUIS BID [facility] Last Admin: 08/19/18 09:32 Dose: 1 spr Furosemide (Lasix) 20 mg PO DAILY [facility] Last Admin: 08/14/18 09:20 Dose: 20 mg Glipizide (Glucotrol) 5 mg PO ACBD [facility] Last Admin: 08/19/18 09:46 Dose: Not Given Cefepime HCl 2 gm/ Sodium (Chloride) 100 mls @ 100 mls/hr IVPB Q8H [facility]; Protocol Last Admin: 08/19/18 12:10 Dose: 100 mls/hr Clindamycin Phosphate (Cleocin) 600 mg in 50 mls @ 100 mls/hr IVPB Q8H [facility]; Protocol Last Admin: 08/19/18 08:33 Dose: 100 mls/hr Lorazepam (Ativan) 0.5 mg PO Q12 [facility] Last Admin: 08/19/18 09:46 Dose: Not Given Magnesium Hydroxide (Milk Of Magnesia) 30 ml PO DAILY PRN PRN Reason: Constipation Methylprednisolone (Solu-Medrol) 40 mg IVP DAILY [facility] Last Admin: 08/19/18 08:31 Dose: 40 mg Montelukast Sodium (Singulair) 10 mg PO HS [facility] Last Admin: 08/18/18 22:07 Dose: 10 mg Multivitamins/Minerals (Therapeutic-M Tab) 1 tab PO DAILY [facility] Last Admin: 08/19/18 09:45 Dose: Not Given Pantoprazole Sodium (Protonix Ec Tab) 40 mg PO DAILY [facility] Last Admin: 08/19/18 09:46 Dose: Not Given Tolvaptan (Samsca) 15 mg PO DAILY [facility] Last Admin: 08/19/18 09:46 Dose: Not Given - Labs Labs: 08/19/18 04:30 08/19/18 04:30 Assessment and Plan (1) Elevated LFTs Status: Acute (2) HCAP (healthcare-associated pneumonia) Status: Acute (3) NSTEMI (non-ST elevated myocardial infarction) Status: Acute (4) SIADH (syndrome of inappropriate ADH production) Status: Acute (5) Acute [place] Status: Acute (6) Liver masses Status: Acute
--- NOTE | 2018-08-19 14:06 | CP.PCM.PN ---
Subjective - Date & Time of Evaluation Date of Evaluation: 08/19/18 Time of Evaluation: 14:05 - Subjective Subjective: Patient appears to be chronically ill with no chest pain Objective - Vital Signs/Intake and Output Vital Signs (last 24 hours): Temp Pulse Resp BP Pulse Ox 99.2 F 92 H 18 114/74 90 L 08/19/18 12:27 08/19/18 12:27 08/19/18 12:27 08/19/18 12:27 08/19/18 12:27 Intake and Output: 08/19/18 08/19/18 06:59 18:59 Intake Total 300 Output Total 300 Balance 0 - Medications Medications: Current Medications Acetaminophen (Tylenol 325mg Tab) 650 mg PO Q6 PRN PRN Reason: Pain, moderate (4-7) Acetylcysteine (Acetylcysteine 20%) 2 ml INH RBID [facility] Last Admin: 08/19/18 07:34 Dose: 2 ml Albuterol Sulfate (Albuterol 0.083% Inhal Autumn (2.5 Mg/3 Ml) Ud) 2.5 mg INH RQ4 PRN PRN Reason: Shortness of Breath Albuterol/Ipratropium (Duoneb 3 Mg/0.5 Mg (3 Ml) Ud) 3 ml INH RQID [facility] Last Admin: 08/19/18 11:23 Dose: 3 ml Alendronate Sodium (Fosamax) 70 mg PO FRI [facility] Last Admin: 08/14/18 09:25 Dose: 70 mg Aspirin (Aspirin) 325 mg PO DAILY [facility] Last Admin: 08/19/18 09:46 Dose: Not Given Atorvastatin Calcium (Lipitor) 40 mg PO HS [facility] Last Admin: 08/18/18 22:07 Dose: 40 mg Carvedilol (Coreg) 12.5 mg PO Q12 [facility] Last Admin: 08/18/18 09:15 Dose: 12.5 mg Clopidogrel Bisulfate (Plavix) 75 mg PO DAILY [facility] Last Admin: 08/19/18 09:46 Dose: Not Given Docusate Sodium (Colace) 100 mg PO BID [facility] Last Admin: 08/19/18 09:44 Dose: Not Given Enalapril Maleate (Vasotec) 20 mg PO DAILY [facility] Last Admin: 08/18/18 09:19 Dose: 20 mg Fluticasone Propionate (Flonase) 1 spr LUIS BID [facility] Last Admin: 08/19/18 09:32 Dose: 1 spr Furosemide (Lasix) 20 mg PO DAILY [facility] Last Admin: 08/14/18 09:20 Dose: 20 mg Glipizide (Glucotrol) 5 mg PO ACBD [facility] Last Admin: 08/19/18 09:46 Dose: Not Given Cefepime HCl 2 gm/ Sodium (Chloride) 100 mls @ 100 mls/hr IVPB Q8H [facility]; P rotocol Last Admin: 08/19/18 12:10 Dose: 100 mls/hr Clindamycin Phosphate (Cleocin) 600 mg in 50 mls @ 100 mls/hr IVPB Q8H [facility]; Protocol Last Admin: 08/19/18 08:33 Dose: 100 mls/hr Lorazepam (Ativan) 0.5 mg PO Q12 [facility] Last Admin: 08/19/18 09:46 Dose: Not Given Magnesium Hydroxide (Milk Of Magnesia) 30 ml PO DAILY PRN PRN Reason: Constipation Methylprednisolone (Solu-Medrol) 40 mg IVP DAILY [facility] Last Admin: 08/19/18 08:31 Dose: 40 mg Montelukast Sodium (Singulair) 10 mg PO HS [facility] Last Admin: 08/18/18 22:07 Dose: 10 mg Multivitamins/Minerals (Therapeutic-M Tab) 1 tab PO DAILY [facility] Last Admin: 08/19/18 09:45 Dose: Not Given Pantoprazole Sodium (Protonix Ec Tab) 40 mg PO DAILY [facility] Last Admin: 08/19/18 09:46 Dose: Not Given - Labs Labs: 08/19/18 04:30 08/19/18 04:30 - Constitutional Appears: No Acute Distress - Eye Exam Eye Exam: absent: Conjunctival injection - ENT Exam ENT Exam: Mucous Membranes Moist - Respiratory Exam Respiratory Exam: Rhonchi. absent: Rales - Cardiovascular Exam Cardiovascular Exam: absent: Gallop, JVD, Rubs - GI/Abdominal Exam GI & Abdominal Exam: Soft, Normal Bowel Sounds - Extremities Exam Extremities Exam: absent: Calf Tenderness - Back Exam Back Exam: absent: CVA tenderness (L), CVA tenderness (R) - Skin Skin Exam: absent: Cyanosis Assessment and Plan (1) SIADH (syndrome of inappropriate ADH production) Assessment & Plan: Chronic SIADH with chronic hyponatremia NSTEM ATRIAL FIBRILLATION HYPERTENSION HYPERLIPIDEMIA Metastatic liver disease Abnormal liver function test COPD Anemia Plan Given above diagnosis was suggested to have supportive therapy as noted by hematology as well DC [facility] for now and monitor serum sodium Status: Acute
--- NOTE | 2018-08-19 15:12 | CP.PCM.PN ---
Subjective - Date & Time of Evaluation Date of Evaluation: 08/19/18 Time of Evaluation: 15:10 - Subjective Subjective: Patient in no acute distress. Objective - Vital Signs/Intake and Output Vital Signs (last 24 hours): Temp Pulse Resp BP Pulse Ox 99.2 F 92 H 18 114/74 90 L 08/19/18 12:27 08/19/18 12:27 08/19/18 12:27 08/19/18 12:27 08/19/18 12:27 Intake and Output: 08/19/18 08/19/18 06:59 18:59 Intake Total 300 Output Total 300 Balance 0 - Medications Medications: Current Medications Acetaminophen (Tylenol 325mg Tab) 650 mg PO Q6 PRN PRN Reason: Pain, moderate (4-7) Acetylcysteine (Acetylcysteine 20%) 2 ml INH RBID [facility] Last Admin: 08/19/18 07:34 Dose: 2 ml Albuterol Sulfate (Albuterol 0.083% Inhal Autumn (2.5 Mg/3 Ml) Ud) 2.5 mg INH RQ4 PRN PRN Reason: Shortness of Breath Albuterol/Ipratropium (Duoneb 3 Mg/0.5 Mg (3 Ml) Ud) 3 ml INH RQID [facility] Last Admin: 08/19/18 11:23 Dose: 3 ml Alendronate Sodium (Fosamax) 70 mg PO FRI [facility] Last Admin: 08/14/18 09:25 Dose: 70 mg Aspirin (Aspirin) 325 mg PO DAILY [facility] Last Admin: 08/19/18 09:46 Dose: Not Given Atorvastatin Calcium (Lipitor) 40 mg PO HS [facility] Last Admin: 08/18/18 22:07 Dose: 40 mg Carvedilol (Coreg) 12.5 mg PO Q12 [facility] Last Admin: 08/18/18 09:15 Dose: 12.5 mg Clopidogrel Bisulfate (Plavix) 75 mg PO DAILY [facility] Last Admin: 08/19/18 09:46 Dose: Not Given Docusate Sodium (Colace) 100 mg PO BID [facility] Last Admin: 08/19/18 09:44 Dose: Not Given Enalapril Maleate (Vasotec) 20 mg PO DAILY [facility] Last Admin: 08/18/18 09:19 Dose: 20 mg Fluticasone Propionate (Flonase) 1 spr LUIS BID [facility] Last Admin: 08/19/18 09:32 Dose: 1 spr Furosemide (Lasix) 20 mg PO DAILY [facility] Last Admin: 08/14/18 09:20 Dose: 20 mg Glipizide (Glucotrol) 5 mg PO ACBD [facility] Last Admin: 08/19/18 09:46 Dose: Not Given Cefepime HCl 2 gm/ Sodium (Chloride) 100 mls @ 100 mls/hr IVPB Q8H [facility]; Protocol Last Admin: 08/19/18 12:10 Dose: 100 mls/hr Clindamycin Phosphate (Cleocin) 600 mg in 50 mls @ 100 mls/hr IVPB Q8H [facility]; Protocol Last Admin: 08/19/18 08:33 Dose: 100 mls/hr Dextrose/Sodium Chloride (Dextrose 5%-0.45% Ns 500 Ml) 500 mls @ 60 mls/hr IV .Q8H20M [facility] Stop: 08/20/18 14:44 Lorazepam (Ativan) 0.5 mg PO Q12 [facility] Last Admin: 08/19/18 09:46 Dose: Not Given Magnesium Hydroxide (Milk Of Magnesia) 30 ml PO DAILY PRN PRN Reason: Constipation Methylprednisolone (Solu-Medrol) 40 mg IVP DAILY [facility] Last Admin: 08/19/18 08:31 Dose: 40 mg Montelukast Sodium (Singulair) 10 mg PO HS [facility] Last Admin: 08/18/18 22:07 Dose: 10 mg Multivitamins/Minerals (Therapeutic-M Tab) 1 tab PO DAILY [facility] Last Admin: 08/19/18 09:45 Dose: Not Given Pantoprazole Sodium (Protonix Ec Tab) 40 mg PO DAILY [facility] Last Admin: 08/19/18 09:46 Dose: Not Given - Labs Labs: 08/19/18 04:30 08/19/18 04:30 - Head Exam Head Exam: ATRAUMATIC - Eye Exam Eye Exam: Normal appearance - ENT Exam ENT Exam: Mucous Membranes Moist - Respiratory Exam Respiratory Exam: Clear to Ausculation Bilateral - GI/Abdominal Exam GI & Abdominal Exam: Soft, Normal Bowel Sounds Assessment and Plan (1) Elevated LFTs Assessment & Plan: Patient with metastatic cancer to liver. Appreciate Oncology note. Supportive care. Status: Acute
--- NOTE | 2018-08-19 15:37 | CP.PCM.PN ---
Subjective - Date & Time of Evaluation Date of Evaluation: 08/19/18 Time of Evaluation: 07:00 - Subjective Subjective: events noted rx in progress no new cultures Objective - Vital Signs/Intake and Output Vital Signs (last 24 hours): Temp Pulse Resp BP Pulse Ox 99.2 F 92 H 18 114/74 90 L 08/19/18 12:27 08/19/18 12:27 08/19/18 12:27 08/19/18 12:27 08/19/18 12:27 Intake and Output: 08/19/18 08/19/18 06:59 18:59 Intake Total 300 Output Total 300 Balance 0 - Medications Medications: Current Medications Acetaminophen (Tylenol 325mg Tab) 650 mg PO Q6 PRN PRN Reason: Pain, moderate (4-7) Acetylcysteine (Acetylcysteine 20%) 2 ml INH RBID [facility] Last Admin: 08/19/18 07:34 Dose: 2 ml Albuterol Sulfate (Albuterol 0.083% Inhal Autumn (2.5 Mg/3 Ml) Ud) 2.5 mg INH RQ4 PRN PRN Reason: Shortness of Breath Albuterol/Ipratropium (Duoneb 3 Mg/0.5 Mg (3 Ml) Ud) 3 ml INH RQID [facility] Last Admin: 08/19/18 15:26 Dose: 3 ml Alendronate Sodium (Fosamax) 70 mg PO FRI [facility] Last Admin: 08/14/18 09:25 Dose: 70 mg Aspirin (Aspirin) 325 mg PO DAILY [facility] Last Admin: 08/19/18 09:46 Dose: Not Given Atorvastatin Calcium (Lipitor) 40 mg PO HS [facility] Last Admin: 08/18/18 22:07 Dose: 40 mg Carvedilol (Coreg) 12.5 mg PO Q12 [facility] Last Admin: 08/18/18 09:15 Dose: 12.5 mg Clopidogrel Bisulfate (Plavix) 75 mg PO DAILY [facility] Last Admin: 08/19/18 09:46 Dose: Not Given Docusate Sodium (Colace) 100 mg PO BID [facility] Last Admin: 08/19/18 09:44 Dose: Not Given Enalapril Maleate (Vasotec) 20 mg PO DAILY [facility] Last Admin: 08/18/18 09:19 Dose: 20 mg Fluticasone Propionate (Flonase) 1 spr LUIS BID [facility] Last Admin: 08/19/18 09:32 Dose: 1 spr Furosemide (Lasix) 20 mg PO DAILY [facility] Last Admin: 08/14/18 09:20 Dose: 20 mg Glipizide (Glucotrol) 5 mg PO ACBD [facility] Last Admin: 08/19/18 09:46 Dose: Not Given Cefepime HCl 2 gm/ Sodium (Chloride) 100 mls @ 100 mls/hr IVPB Q8H [facility]; Protocol Last Admin: 08/19/18 12:10 Dose: 100 mls/hr Clindamycin Phosphate (Cleocin) 600 mg in 50 mls @ 100 mls/hr IVPB Q8H [facility]; Protocol Last Admin: 08/19/18 08:33 Dose: 100 mls/hr Dextrose/Sodium Chloride (Dextrose 5%-0.45% Ns 500 Ml) 500 mls @ 60 mls/hr IV .Q8H20M [facility] Stop: 08/20/18 14:44 Lorazepam (Ativan) 0.5 mg PO Q12 [facility] Last Admin: 08/19/18 09:46 Dose: Not Given Magnesium Hydroxide (Milk Of Magnesia) 30 ml PO DAILY PRN PRN Reason: Constipation Methylprednisolone (Solu-Medrol) 40 mg IVP DAILY [facility] Last Admin: 08/19/18 08:31 Dose: 40 mg Montelukast Sodium (Singulair) 10 mg PO HS [facility] Last Admin: 08/18/18 22:07 Dose: 10 mg Multivitamins/Minerals (Therapeutic-M Tab) 1 tab PO DAILY [facility] Last Admin: 08/19/18 09:45 Dose: Not Given Pantoprazole Sodium (Protonix Ec Tab) 40 mg PO DAILY [facility] Last Admin: 08/19/18 09:46 Dose: Not Given - Labs Labs: 08/19/18 04:30 08/19/18 04:30 - Constitutional Appears: Cachectic, Chronically Ill - Head Exam Head Exam: ATRAUMATIC, NORMAL INSPECTION, NORMOCEPHALIC - Eye Exam Eye Exam: EOMI, Normal appearance, PERRL Pupil Exam: NORMAL ACCOMODATION, PERRL - ENT Exam ENT Exam: Mucous Membranes Moist, Normal Exam - Neck Exam Neck Exam: Full ROM, Normal Inspection. absent: Lymphadenopathy - Respiratory Exam Respiratory Exam: Clear to Ausculation Bilateral, NORMAL BREATHING PATTERN - Cardiovascular Exam Cardiovascular Exam: REGULAR RHYTHM, +S1, +S2. absent: Murmur - GI/Abdominal Exam GI & Abdominal Exam: Soft, Normal Bowel Sounds. absent: Tenderness - Rectal Exam Rectal Exam: Deferred - Extremities Exam Extremities Exam: Full ROM, Normal Capillary Refill, Normal Inspection. absent: Joint Swelling, Pedal Edema - Back Exam Back Exam: NORMAL INSPECTION - Neurological Exam Neurological Exam: Alert, Awake, CN II-XII Intact, Normal Gait, Oriented x3 - Psychiatric Exam Psychiatric exam: Normal Affect, Normal Mood - Skin Skin Exam: Dry, Intact, Normal Color, Warm Assessment and Plan (1) Elevated LFTs Status: Acute (2) HCAP (healthcare-associated pneumonia) Status: Acute (3) NSTEMI (non-ST elevated myocardial infarction) Status: Acute (4) SIADH (syndrome of inappropriate ADH production) Status: Acute (5) Acute OK Status: Acute (6) Liver masses Status: Acute - Assessment and Plan (Free Text) Assessment: poor prognosis cont rx as ordered
--- NOTE | 2018-08-19 18:18 | PN ---
DATE: 08/19/2018 ENDOCRINOLOGY FOLLOWUP NOTE LOCATION: Room 410, bed 2. SUBJECTIVE: This is an 88-year-old female with recent admission for acute pneumonitis and exacerbation of COPD, currently on a tapering IV steroid dosing as given and is now being followed closely for metabolic management. Her glycemic levels are fluctuating but improved and the glucose levels overnight have ranged from 153 to 160 mg/dL. LABORATORY DATA: Her chemistry showed a BUN of 44, sodium 136, potassium 4.6, chloride 101, CO2 28, glucose 147, and creatinine 1.1. PLAN: So at this time, we will continue the low-dose correction scale using Humalog insulin as ordered. We will also continue the low-dose oral hypoglycemic therapy given as glipizide at 5 mg b.i.d. before meals as ordered. We will hold off the resumption of her metformin therapy for now. We will obtain serial chemistries and supplement accordingly as needed. We will follow. Billie Bruce MD
--- NOTE | 2018-08-19 19:02 | CP.PCM.PN ---
Subjective - Date & Time of Evaluation Date of Evaluation: 08/19/18 Time of Evaluation: 22:22 - Subjective Subjective: Mental status?? Objective - Vital Signs/Intake and Output Vital Signs (last 24 hours): Temp Pulse Resp BP Pulse Ox 98.5 F 125 H 22 113/68 94 L 08/19/18 16:21 08/19/18 16:21 08/19/18 16:21 08/19/18 16:21 08/19/18 16:21 - Medications Medications: Current Medications Acetaminophen (Tylenol 325mg Tab) 650 mg PO Q6 PRN PRN Reason: Pain, moderate (4-7) Acetylcysteine (Acetylcysteine 20%) 2 ml INH RBID [facility] Last Admin: 08/19/18 07:34 Dose: 2 ml Albuterol Sulfate (Albuterol 0.083% Inhal Autumn (2.5 Mg/3 Ml) Ud) 2.5 mg INH RQ4 PRN PRN Reason: Shortness of Breath Albuterol/Ipratropium (Duoneb 3 Mg/0.5 Mg (3 Ml) Ud) 3 ml INH RQID [facility] Last Admin: 08/19/18 15:26 Dose: 3 ml Alendronate Sodium (Fosamax) 70 mg PO FRI [facility] Last Admin: 08/14/18 09:25 Dose: 70 mg Aspirin (Aspirin) 325 mg PO DAILY [facility] Last Admin: 08/19/18 09:46 Dose: Not Given Atorvastatin Calcium (Lipitor) 40 mg PO HS [facility] Last Admin: 08/18/18 22:07 Dose: 40 mg Carvedilol (Coreg) 12.5 mg PO Q12 [facility] Last Admin: 08/18/18 09:15 Dose: 12.5 mg Clopidogrel Bisulfate (Plavix) 75 mg PO DAILY [facility] Last Admin: 08/19/18 09:46 Dose: Not Given Docusate Sodium (Colace) 100 mg PO BID [facility] Last Admin: 08/19/18 16:07 Dose: Not Given Enalapril Maleate (Vasotec) 20 mg PO DAILY [facility] Last Admin: 08/18/18 09:19 Dose: 20 mg Fluticasone Propionate (Flonase) 1 spr LUIS BID [facility] Last Admin: 08/19/18 16:22 Dose: 1 spr Furosemide (Lasix) 20 mg PO DAILY [facility] Last Admin: 08/14/18 09:20 Dose: 20 mg Glipizide (Glucotrol) 5 mg PO ACBD [facility] Last Admin: 08/19/18 16:08 Dose: Not Given Cefepime HCl 2 gm/ Sodium (Chloride) 100 mls @ 100 mls/hr IVPB Q8H [facility]; Protocol Last Admin: 08/19/18 12:10 Dose: 100 mls/hr Clindamycin Phosphate (Cleocin) 600 mg in 50 mls @ 100 mls/hr IVPB Q8H [facility]; Protocol Last Admin: 08/19/18 16:21 Dose: 100 mls/hr Dextrose/Sodium Chloride (Dextrose 5%-0.45% Ns 500 Ml) 500 mls @ 60 mls/hr IV .Q8H20M [facility] Stop: 08/20/18 14:44 Last Admin: 08/19/18 16:21 Dose: 60 mls/hr Lorazepam (Ativan) 0.5 mg PO Q12 [facility] Last Admin: 08/19/18 09:46 Dose: Not Given Magnesium Hydroxide (Milk Of Magnesia) 30 ml PO DAILY PRN PRN Reason: Constipation Methylprednisolone (Solu-Medrol) 40 mg IVP DAILY [facility] Last Admin: 08/19/18 08:31 Dose: 40 mg Montelukast Sodium (Singulair) 10 mg PO HS [facility] Last Admin: 08/18/18 22:07 Dose: 10 mg Multivitamins/Minerals (Therapeutic-M Tab) 1 tab PO DAILY [facility] Last Admin: 08/19/18 09:45 Dose: Not Given Pantoprazole Sodium (Protonix Ec Tab) 40 mg PO DAILY [facility] Last Admin: 08/19/18 09:46 Dose: Not Given - Labs Labs: 08/19/18 04:30 08/19/18 04:30 - Respiratory Exam Respiratory Exam: NORMAL BREATHING PATTERN - Cardiovascular Exam Cardiovascular Exam: REGULAR RHYTHM - GI/Abdominal Exam GI & Abdominal Exam: Normal Bowel Sounds Assessment and Plan - Assessment and Plan (Free Text) Assessment: Mental status ?? Ativan?? Metastatic liver dx elevated CEA Ca 19-9 Ag Long d/w son and Oncology New NSTEMI + CE new S/P Acute ant wall NV O2 ASA Plavix JAYESH B-[place]ia Nitrates Lasix Norvasc Cardiology Last Echo good LV fxn SOB COPD/ Asthma CAP?? Prov Atrovent Steroids ABX Pulmonary consult Hyponatremia 2 to SIADH ?? [place] Hyperkalemia improved Kaexylate Nephrology Anemia Hx Rectal bleeding stable Hx rectal prolapse Hx hemorrhoids Refusing w/u
[2018-08-19] MEDS ORDERED: Morphine 4 MG/ML VIAL IVP STA (23:37)
--- NOTE | 2018-08-19 23:52 | CP.PCM.CON ---
History of Present Illness - History of Present Illness History of Present Illness: Attending Provider: Renny Patel Reason for Consult: Evaluate patient For possible Head CT scan Chief Complaint: Confused patient with persistent groaning The Patient was sondra nd examined in the Telemetry unit. HPI: The hx was obtained from the Laboratory, radiological and medical records. She is an 88 years old female with an extensive medical hx mentioned below, admitted on 08/13/18 in respiratory distress, diagnosed with Pneumonia and being treated with Clindamycin and Cefepime. She was then dx with NSTEMI and is on Medical management. Her hyponatremia due to chronic SIADH has improved. With mid-abdominal pain and elevated LFT a CT of Abdomen/Pelvis done showed IMPRESSION: Hepatomegaly secondary to metastasis. Constipation. No bowel obstruction. Incidental bilateral pleural effusions and compressive atelectasis with moderate hiatal hernia. Reactive changes at the bilateral flanks are identified with thickened skin which could reflect cellulitis. Clinically correlate further. The Patient has now been in a confused state for few days, and now is groaning with intermittent crying out. Not answering to questioning, hand on abdomen and lying still, and has a poor urine output. On this visit her heart rate is 120- 140/min with Temp of 98F, and SpO2 of 96 on 3L O2. The BP is 110/60 PMH: Asthma, COPD; CAD ; Anxiety and Depression; HTN; HLD; Paranoia; Pneumonia; Chronic SIADH with Hyponatremia; Rectal Bleed declining Colonoscopy PSH: Hemorrhoidectomy SH: Former Smoked; No illegal drug use; No ETOH use FH: Unknown Allergies: NKDA Medication: Reviewed Review of Systems - Review of Systems Systems not reviewed;Unavailable: Altered Mental Status Review of Systems: Limited Review of Systems as the patient is not speaking at present Past Patient History - Past Medical History & Family History Past Medical History?: Yes - Past Social History Smoking Status: Former Smoker Chewing Tobacco Use: No Cigar Use: No Alcohol: None Drugs: Denies - CARDIAC Hx Atrial Fibrillation: No Hx Cardia Arrhythmia: No Hx Congestive Heart Failure: Yes Hx Hypercholesterolemia: Yes Hx Hypertension: Yes Hx Mitral Valve Prolapse: No Hx Pacemaker: No Hx Peripheral Edema: No - PULMONARY Hx Asthma: Yes Hx Bronchitis: Yes Hx Chronic Obstructive Pulmonary Disease (COPD): Yes Hx Emphysema: No Hx Pneumonia: Yes Hx Pulmonary Embolism: No Hx Sleep Apnea: No - NEUROLOGICAL Hx Alzheimer's Disease: No Hx Dementia: No Hx Migraine: No Hx Multiple Sclerosis: No Hx Parkinson's Disease: No Hx Seizures: No Hx Transient Ischemic Attacks (TIA): No - HEENT Hx HEENT Problems: No - RENAL Hx Chronic Kidney Disease: No Hx Kidney Stones: No - ENDOCRINE/METABOLIC Hx Hyperthyroidism: No Hx Hypothyroidism: No - HEMATOLOGICAL/ONCOLOGICAL Hx Anemia: No Hx Human Immunodeficiency Virus (HIV): No Hx Sickle Cell Disease: No - INTEGUMENTARY Hx Dermatological Problems: No - MUSCULOSKELETAL/RHEUMATOLOGICAL Hx Arthritis: No Hx Fractures: Yes Hx Osteoporosis: No Hx Rheumatoid Arthritis: No - GASTROINTESTINAL Hx Crohn's Disease: No Hx Diverticulitis: No Hx Gall Bladder Disease: No Hx Gastritis: No Hx Pancreatitis: No - GENITOURINARY/GYNECOLOGICAL Hx Sexually Transmitted Disorders: No - PSYCHIATRIC Hx Anxiety: Yes Hx Bipolar Disorder: No Hx Depression: Yes Hx Paranoia: Yes Hx Post Traumatic Stress Disorder: No Hx Schizophrenia: No - SURGICAL HISTORY Hx Appendectomy: No Hx Carotid Endarterectomy: No Hx Cholecystectomy: No Hx Coronary Artery Bypass Graft: No Hx Coronary Stent: No Hx Tonsillectomy: No Other/Comment: Hemorrhoidectomy - ANESTHESIA Hx Anesthesia: Yes Hx Anesthesia Reactions: No Hx Malignant Hyperthermia: No Meds Allergies/Adverse Reactions: Allergies Allergy/AdvReac Type Severity Reaction Status Date / Time No Known Allergies Allergy Verified 06/16/18 14:16 - Medications Medications: Current Medications Acetaminophen (Tylenol 325mg Tab) 650 mg PO Q6 PRN PRN Reason: Pain, moderate (4-7) Acetylcysteine (Acetylcysteine 20%) 2 ml INH RBID [facility] Last Admin: 08/19/18 19:27 Dose: 2 ml Albuterol Sulfate (Albuterol 0.083% Inhal Autumn (2.5 Mg/3 Ml) Ud) 2.5 mg INH RQ4 PRN PRN Reason: Shortness of Breath Albuterol/Ipratropium (Duoneb 3 Mg/0.5 Mg (3 Ml) Ud) 3 ml INH RQID [facility] Last Admin: 08/19/18 19:27 Dose: 3 ml Alendronate Sodium (Fosamax) 70 mg PO FRI [facility] Last Admin: 08/14/18 09:25 Dose: 70 mg Aspirin (Aspirin) 325 mg PO DAILY [facility] Last Admin: 08/19/18 09:46 Dose: Not Given Atorvastatin Calcium (Lipitor) 40 mg PO HS [facility] Last Admin: 08/18/18 22:07 Dose: 40 mg Carvedilol (Coreg) 12.5 mg PO Q12 [facility] Last Admin: 08/18/18 09:15 Dose: 12.5 mg Clopidogrel Bisulfate (Plavix) 75 mg PO DAILY [facility] Last Admin: 08/19/18 09:46 Dose: Not Given Diltiazem HCl (Cardizem) 10 mg IVP ONCE ONE Stop: 08/19/18 23:52 Docusate Sodium (Colace) 100 mg PO BID [facility] Last Admin: 08/19/18 16:07 Dose: Not Given Enalapril Maleate (Vasotec) 20 mg PO DAILY [facility] Last Admin: 08/18/18 09:19 Dose: 20 mg Fluticasone Propionate (Flonase) 1 spr LUIS BID [facility] Last Admin: 08/19/18 16:22 Dose: 1 spr Furosemide (Lasix) 20 mg PO DAILY [facility] Last Admin: 08/14/18 09:20 Dose: 20 mg Glipizide (Glucotrol) 5 mg PO ACBD [facility] Last Admin: 08/19/18 16:08 Dose: Not Given Cefepime HCl 2 gm/ Sodium (Chloride) 100 mls @ 100 mls/hr IVPB Q8H [facility]; Protocol Last Admin: 08/19/18 20:14 Dose: 100 mls/hr Clindamycin Phosphate (Cleocin) 600 mg in 50 mls @ 100 mls/hr IVPB Q8H [facility]; Protocol Last Admin: 08/19/18 16:21 Dose: 100 mls/hr Dextrose/Sodium Chloride (Dextrose 5%-0.45% Ns 500 Ml) 500 mls @ 60 mls/hr IV .Q8H20M [facility] Stop: 08/20/18 14:44 Last Admin: 08/19/18 22:29 Dose: 60 mls/hr Lorazepam (Ativan) 0.5 mg PO Q12 [facility] Last Admin: 08/19/18 20:27 Dose: Not Given Magnesium Hydroxide (Milk Of Magnesia) 30 ml PO DAILY PRN PRN Reason: Constipation Methylprednisolone (Solu-Medrol) 40 mg IVP DAILY [facility] Last Admin: 08/19/18 08:31 Dose: 40 mg Montelukast Sodium (Singulair) 10 mg PO HS [facility] Last Admin: 08/19/18 22:28 Dose: Not Given Multivitamins/Minerals (Therapeutic-M Tab) 1 tab PO DAILY [facility] Last Admin: 08/19/18 09:45 Dose: Not Given Pantoprazole Sodium (Protonix Ec Tab) 40 mg PO DAILY [facility] Last Admin: 08/19/18 09:46 Dose: Not Given Physical Exam - Constitutional Appears: No Acute Distress - Head Exam Head Exam: ATRAUMATIC, NORMAL INSPECTION, NORMOCEPHALIC - Eye Exam Additional comments: Eyes closed, patient resisting to open the eyes. - ENT Exam ENT Exam: Mucous Membranes Dry, Normal External Ear Exam - Neck Exam Neck exam: Positive for: Normal Inspection, Tenderness. Negative for: Lymphadenopathy - Respiratory Exam Additional comments: Decreased breath sounds at the base. - Cardiovascular Exam Cardiovascular Exam: Irregular Rhythm, +S1, +S2 - GI/Abdominal Exam Additional comments: Abdomen full, firm. tympanic on percussion, Tender on deep palpation at the upper quadrants - Rectal Exam Rectal Exam: Deferred - Extremities Exam Extremities exam: Positive for: normal inspection - Back Exam Back exam: NORMAL INSPECTION - Neurological Exam Additional comments: Awake, crying but not responding to verbal stimuli. No facial droop, Moving the upper extremities. - Psychiatric Exam Psychiatric exam: Flat Affect - Skin Skin Exam: Dry, Normal Color, Warm Results - Vital Signs Recent Vital Signs: Last Vital Signs Temp 98.8 F 08/19/18 20:05 Pulse 120 H 08/19/18 21:00 Resp 22 08/19/18 20:05 BP 117/76 08/19/18 20:05 Pulse Ox 95 08/19/18 20:05 - Labs Result Diagrams: 08/19/18 04:30 08/19/18 04:30 Labs: Laboratory Results - last 24 hr 08/19/18 08/19/18 08/19/18 04:30 04:30 05:36 WBC 14.1 H RBC 2.67 L Hgb 8.7 L Hct 26.6 L MCV 99.8 H MCH 32.5 H MCHC 32.5 L RDW 17.0 H Plt Count 180 Sodium 136 Potassium 4.6 Chloride 101 Carbon Dioxide 20 L Anion Gap 20 BUN 44 H Creatinine 1.1 Est GFR ( Amer) 57 Est GFR (Non-Af Amer) 47 POC Glucose (mg/dL) 160 H Random Glucose 147 H Calcium 7.7 L Phosphorus 3.4 Magnesium 2.7 H Total Bilirubin 1.0 AST 624 H D ALT 417 H D Alkaline Phosphatase 261 H Ammonia Total Protein 5.7 L Albumin 3.3 L Globulin 2.5 Albumin/Globulin Ratio 1.3 08/19/18 08/19/18 08/19/18 11:14 11:46 16:16 WBC RBC Hgb Hct MCV MCH MCHC RDW Plt Count Sodium Potassium Chloride Carbon Dioxide Anion Gap BUN Creatinine Est GFR ( Amer) Est GFR (Non-Af Amer) POC Glucose (mg/dL) 156 H 182 H Random Glucose Calcium Phosphorus Magnesium Total Bilirubin AST ALT Alkaline Phosphatase Ammonia 49 Total Protein Albumin Globulin Albumin/Globulin Ratio 08/19/18 21:40 WBC RBC Hgb Hct MCV MCH MCHC RDW Plt Count Sodium Potassium Chloride Carbon Dioxide Anion Gap BUN Creatinine Est GFR ( Amer) Est GFR (Non-Af Amer) POC Glucose (mg/dL) 172 H Random Glucose Calcium Phosphorus Magnesium Total Bilirubin AST ALT Alkaline Phosphatase Ammonia Total Protein Albumin Globulin Albumin/Globulin Ratio - Imaging and Cardiology CT scan - abdomen Status: Report reviewed by me Additional comment: IMPRESSION: Hepatomegaly secondary to metastasis. Constipation. No bowel obstruction. Incidental bilateral pleural effusions and compressive atelectasis with moderate hiatal hernia. Reactive changes at the bilateral flanks are identified with thickened skin which could reflect cellulitis. Clinically correlate further. Assessment & Plan - Assessment and Plan (Free Text) Plan: 88 years old female with an extensive medical hx mentioned below, admitted on 08/13/18 in respiratory distress, diagnosed with Pneumonia and being treated with Clindamycin and Cefepime. Dx with NSTEMI and is on Medical management. Her hyponatremia due to chronic SIADH has improved. With mid-abdominal pain and elevated LFT a CT of Abdomen/Pelvis done showed evidence of metastatic disease. The Patient has now been in a confused state for few days, and now is groaning with intermittent crying out. Not answering to questioning, hand on abdomen and lying still, and has a poor urine output. On this visit her heart rate is 120- 140/min with Temp of 98F, and SpO2 of 96 on 3L O2. The BP is 110/60 #. Delirium probably on Dementia, now with metastatic liver disease and abdominal pain - GI on consult - Psych on Consult - Oncology on consult - Patient will need pain management. I will administer Morphine 2-4mg IVP q 4-6 hours - With the Poor prognosis, I will defer CT scan of the Brain and treat conservatively. - Consider Palliative care #. Tympanic abdomen/ constipation by CT abdomen - Dulcolax supp - Flat plate of abdomen #. A Fib with rapid response - Cardiology on consult - Bolus Cardizem bolus of 10mg stat - Normal Saline 500ml to maintain blood pressure, #. Dehydration - IV Fluid total of 1 liter given - I&O - Renal labs #. Treat Pneumonia #. NSTEMI on conservative management - Cardiology on consult At the present time I do not consider head CT nor ICU management. Pain management would make the patient much more comfortable. Bright Magallanes MD - Date & Time Date: 08/19/18 Time: 23:52
[2018-08-20] MEDS ORDERED: Sodium Chloride 0.9% 500 ML IV ONE ×3 (00:09→15:38)
[2018-08-20] MEDS: Clindamycin 600mg/50ml D5W 600 MG/50 ML VIAL IVPB SCH ×3 (00:55→16:51)
[2018-08-20] MEDS: Cefepime 2 GM in Sodium Chloride 0.9% 100 ML IVPB SCH ×3 (03:31→21:23)
[2018-08-20] MEDS ORDERED: Morphine 4 MG/ML VIAL IVP ONE (04:32)
[2018-08-20] MEDS: Albuterol-Ipratrop 3 mg / 0.5 (3 ml) UD INH SCH ×4 (07:33→19:49)
[2018-08-20] MEDS: Acetylcysteine 20% Inhal Soln (4ml) INH SCH (07:33)
[2018-08-20] MEDS: Pantoprazole 40 mg EC Tab PO SCH ×2 (08:39→08:40)
[2018-08-20] MEDS: MethylPREDNISolone 40 mg Vial IVP SCH (08:40)
[2018-08-20] MEDS: Multivitamin With Minerals Tab PO SCH ×2 (08:40)
--- NOTE | 2018-08-20 09:11 | CP.PCM.PN ---
Subjective - Date & Time of Evaluation Date of Evaluation: 08/20/18 Time of Evaluation: 09:10 - Subjective Subjective: Seen on morning rounds. Overnight events were reviewed. Lying in bed moaning loudly. One son is at the bedside presently. Discussed the present status with him. He relates that she will not eat anything. Discussion was had regarding comfort measures. Further invasive testing would be of little value regarding treatment, and risk of complications high. Advised that Palliative care or Hospice care would be a consideration. Family members will discuss options of care. Objective - Vital Signs/Intake and Output Vital Signs (last 24 hours): Temp Pulse Resp BP Pulse Ox 97.7 F 138 H 18 125/80 96 08/20/18 07:56 08/20/18 07:56 08/20/18 07:56 08/20/18 07:56 08/20/18 07:56 Intake and Output: 08/19/18 08/20/18 23:59 11:59 Intake Total 1600 Output Total 100 Balance 1500 - Medications Medications: Current Medications Acetaminophen (Tylenol 325mg Tab) 650 mg PO Q6 PRN PRN Reason: Pain, moderate (4-7) Albuterol Sulfate (Albuterol 0.083% Inhal Autumn (2.5 Mg/3 Ml) Ud) 2.5 mg INH RQ4 PRN PRN Reason: Shortness of Breath Albuterol/Ipratropium (Duoneb 3 Mg/0.5 Mg (3 Ml) Ud) 3 ml INH RQID [facility] Last Admin: 08/20/18 07:33 Dose: 3 ml Alendronate Sodium (Fosamax) 70 mg PO FRI [facility] Last Admin: 08/14/18 09:25 Dose: 70 mg Aspirin (Aspirin) 325 mg PO DAILY [facility] Last Admin: 08/20/18 08:32 Dose: 325 mg Atorvastatin Calcium (Lipitor) 40 mg PO HS [facility] Last Admin: 08/18/18 22:07 Dose: 40 mg Carvedilol (Coreg) 12.5 mg PO Q12 [facility] Last Admin: 08/18/18 09:15 Dose: 12.5 mg Clopidogrel Bisulfate (Plavix) 75 mg PO DAILY [facility] Last Admin: 08/20/18 08:39 Dose: 75 mg Docusate Sodium (Colace) 100 mg PO BID [facility] Last Admin: 08/20/18 08:38 Dose: 100 mg Enalapril Maleate (Vasotec) 20 mg PO DAILY [facility] Last Admin: 08/18/18 09:19 Dose: 20 mg Fluticasone Propionate (Flonase) 1 spr LUIS BID [facility] Last Admin: 08/20/18 08:38 Dose: 1 spr Furosemide (Lasix) 20 mg PO DAILY [facility] Last Admin: 08/14/18 09:20 Dose: 20 mg Glipizide (Glucotrol) 5 mg PO ACBD [facility] Last Admin: 08/20/18 08:39 Dose: 5 mg Cefepime HCl 2 gm/ Sodium (Chloride) 100 mls @ 100 mls/hr IVPB Q8H [facility]; Protocol Last Admin: 08/20/18 03:31 Dose: 100 mls/hr Clindamycin Phosphate (Cleocin) 600 mg in 50 mls @ 100 mls/hr IVPB Q8H [facility]; Protocol Last Admin: 08/20/18 08:33 Dose: 100 mls/hr Dextrose/Sodium Chloride (Dextrose 5%-0.45% Ns 500 Ml) 500 mls @ 60 mls/hr IV .Q8H20M [facility] Stop: 08/20/18 14:44 Last Admin: 08/19/18 22:29 Dose: 60 mls/hr Lorazepam (Ativan) 0.5 mg PO Q12 [facility] Last Admin: 08/20/18 08:31 Dose: Not Given Magnesium Hydroxide (Milk Of Magnesia) 30 ml PO DAILY PRN PRN Reason: Constipation Methylprednisolone (Solu-Medrol) 40 mg IVP DAILY [facility] Last Admin: 08/20/18 08:40 Dose: 40 mg Montelukast Sodium (Singulair) 10 mg PO HS [facility] Last Admin: 08/19/18 22:28 Dose: Not Given Multivitamins/Minerals (Therapeutic-M Tab) 1 tab PO DAILY [facility] Last Admin: 08/20/18 08:40 Dose: 1 tab Pantoprazole Sodium (Protonix Ec Tab) 40 mg PO DAILY [facility] Last Admin: 08/20/18 08:39 Dose: 40 mg - Labs Labs: 08/19/18 04:30 08/19/18 04:30 Assessment and Plan (1) NSTEMI (non-ST elevated myocardial infarction) Status: Acute (2) Pneumonia Status: Acute (3) Bronchial asthma Status: Chronic
--- NOTE | 2018-08-20 09:39 | CP.PCM.PN ---
Subjective - Date & Time of Evaluation Date of Evaluation: 08/20/18 Time of Evaluation: 09:00 - Subjective Subjective: NO COMPLAINTS Objective - Vital Signs/Intake and Output Vital Signs (last 24 hours): Temp Pulse Resp BP Pulse Ox 97.7 F 138 H 18 125/80 96 08/20/18 07:56 08/20/18 07:56 08/20/18 07:56 08/20/18 07:56 08/20/18 07:56 Intake and Output: 08/20/18 08/20/18 06:59 18:59 Intake Total 1600 Output Total 100 Balance 1500 - Medications Medications: Current Medications Acetaminophen (Tylenol 325mg Tab) 650 mg PO Q6 PRN PRN Reason: Pain, moderate (4-7) Albuterol Sulfate (Albuterol 0.083% Inhal Autumn (2.5 Mg/3 Ml) Ud) 2.5 mg INH RQ4 PRN PRN Reason: Shortness of Breath Albuterol/Ipratropium (Duoneb 3 Mg/0.5 Mg (3 Ml) Ud) 3 ml INH RQID [facility] Last Admin: 08/20/18 07:33 Dose: 3 ml Alendronate Sodium (Fosamax) 70 mg PO FRI [facility] Last Admin: 08/14/18 09:25 Dose: 70 mg Aspirin (Aspirin) 325 mg PO DAILY [facility] Last Admin: 08/20/18 08:32 Dose: 325 mg Atorvastatin Calcium (Lipitor) 40 mg PO HS [facility] Last Admin: 08/18/18 22:07 Dose: 40 mg Carvedilol (Coreg) 12.5 mg PO Q12 [facility] Last Admin: 08/18/18 09:15 Dose: 12.5 mg Clopidogrel Bisulfate (Plavix) 75 mg PO DAILY [facility] Last Admin: 08/20/18 08:39 Dose: 75 mg Docusate Sodium (Colace) 100 mg PO BID [facility] Last Admin: 08/20/18 08:38 Dose: 100 mg Enalapril Maleate (Vasotec) 20 mg PO DAILY [facility] Last Admin: 08/18/18 09:19 Dose: 20 mg Fluticasone Propionate (Flonase) 1 spr LUIS BID [facility] Last Admin: 08/20/18 08:38 Dose: 1 spr Furosemide (Lasix) 20 mg PO DAILY [facility] Last Admin: 08/14/18 09:20 Dose: 20 mg Glipizide (Glucotrol) 5 mg PO ACBD [facility] Last Admin: 08/20/18 08:39 Dose: 5 mg Cefepime HCl 2 gm/ Sodium (Chloride) 100 mls @ 100 mls/hr IVPB Q8H [facility]; Protocol Last Admin: 08/20/18 03:31 Dose: 100 mls/hr Clindamycin Phosphate (Cleocin) 600 mg in 50 mls @ 100 mls/hr IVPB Q8H [facility]; Protocol Last Admin: 08/20/18 08:33 Dose: 100 mls/hr Dextrose/Sodium Chloride (Dextrose 5%-0.45% Ns 500 Ml) 500 mls @ 60 mls/hr IV .Q8H20M [facility] Stop: 08/20/18 14:44 Last Admin: 08/19/18 22:29 Dose: 60 mls/hr Lorazepam (Ativan) 0.5 mg PO Q12 [facility] Last Admin: 08/20/18 08:31 Dose: Not Given Magnesium Hydroxide (Milk Of Magnesia) 30 ml PO DAILY PRN PRN Reason: Constipation Methylprednisolone (Solu-Medrol) 40 mg IVP DAILY [facility] Last Admin: 08/20/18 08:40 Dose: 40 mg Montelukast Sodium (Singulair) 10 mg PO HS [facility] Last Admin: 08/19/18 22:28 Dose: Not Given Multivitamins/Minerals (Therapeutic-M Tab) 1 tab PO DAILY [facility] Last Admin: 08/20/18 08:40 Dose: 1 tab Pantoprazole Sodium (Protonix Ec Tab) 40 mg PO DAILY [facility] Last Admin: 08/20/18 08:39 Dose: 40 mg - Labs Labs: 08/19/18 04:30 08/19/18 04:30 - Respiratory Exam Respiratory Exam: Decreased Breath Sounds, Rales - Cardiovascular Exam Cardiovascular Exam: Tachycardia, Irregular Rhythm, +S1, +S2 - Additional Findings 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
--- NOTE | 2018-08-20 10:34 | CP.PCM.CON ---
History of Present Illness - History of Present Illness History of Present Illness: Neurology Consultation Note: Consult Requested by Dr. Patel Mrs. Harris is an 88-year-old woman with a past medical history of COPD, CAD, psychiatric issues, HTN, HLD, dementia and paranoia; Pneumonia; Chronic SIADH, who was admitted for pneumonia, had an NSTEMI, is currently on antibiotics and is confused, agitated. WBC is trending up, LFTs are trending up. Neurology was consulted for lethargy and altered mental status. Review of Systems - Review of Systems Systems not reviewed;Unavailable: Altered Mental Status Past Patient History - Past Medical History & Family History Past Medical History?: Yes - Past Social History Smoking Status: Former Smoker Chewing Tobacco Use: No Cigar Use: No Alcohol: None Drugs: Denies - CARDIAC Hx Atrial Fibrillation: No Hx Cardia Arrhythmia: No Hx Congestive Heart Failure: Yes Hx Hypercholesterolemia: Yes Hx Hypertension: Yes Hx Mitral Valve Prolapse: No Hx Pacemaker: No Hx Peripheral Edema: No - PULMONARY Hx Asthma: Yes Hx Bronchitis: Yes Hx Chronic Obstructive Pulmonary Disease (COPD): Yes Hx Emphysema: No Hx Pneumonia: Yes Hx Pulmonary Embolism: No Hx Sleep Apnea: No - NEUROLOGICAL Hx Alzheimer's Disease: No Hx Dementia: No Hx Migraine: No Hx Multiple Sclerosis: No Hx Parkinson's Disease: No Hx Seizures: No Hx Transient Ischemic Attacks (TIA): No - HEENT Hx HEENT Problems: No - RENAL Hx Chronic Kidney Disease: No Hx Kidney Stones: No - ENDOCRINE/METABOLIC Hx Hyperthyroidism: No Hx Hypothyroidism: No - HEMATOLOGICAL/ONCOLOGICAL Hx Anemia: No Hx Human Immunodeficiency Virus (HIV): No Hx Sickle Cell Disease: No - INTEGUMENTARY Hx Dermatological Problems: No - MUSCULOSKELETAL/RHEUMATOLOGICAL Hx Arthritis: No Hx Fractures: Yes Hx Osteoporosis: No Hx Rheumatoid Arthritis: No - GASTROINTESTINAL Hx Crohn's Disease: No Hx Diverticulitis: No Hx Gall Bladder Disease: No Hx Gastritis: No Hx Pancreatitis: No - GENITOURINARY/GYNECOLOGICAL Hx Sexually Transmitted Disorders: No - PSYCHIATRIC Hx Anxiety: Yes Hx Bipolar Disorder: No Hx Depression: Yes Hx Paranoia: Yes Hx Post Traumatic Stress Disorder: No Hx Schizophrenia: No - SURGICAL HISTORY Hx Appendectomy: No Hx Carotid Endarterectomy: No Hx Cholecystectomy: No Hx Coronary Artery Bypass Graft: No Hx Coronary Stent: No Hx Tonsillectomy: No Other/Comment: Hemorrhoidectomy - ANESTHESIA Hx Anesthesia: Yes Hx Anesthesia Reactions: No Hx Malignant Hyperthermia: No Meds Allergies/Adverse Reactions: Allergies Allergy/AdvReac Type Severity Reaction Status Date / Time No Known Allergies Allergy Verified 06/16/18 14:16 - Medications Medications: Current Medications Acetaminophen (Tylenol 325mg Tab) 650 mg PO Q6 PRN PRN Reason: Pain, moderate (4-7) Albuterol Sulfate (Albuterol 0.083% Inhal Autumn (2.5 Mg/3 Ml) Ud) 2.5 mg INH RQ4 PRN PRN Reason: Shortness of Breath Albuterol/Ipratropium (Duoneb 3 Mg/0.5 Mg (3 Ml) Ud) 3 ml INH RQID [facility] Last Admin: 08/20/18 07:33 Dose: 3 ml Alendronate Sodium (Fosamax) 70 mg PO FRI [facility] Last Admin: 08/14/18 09:25 Dose: 70 mg Aspirin (Aspirin) 325 mg PO DAILY [facility] Last Admin: 08/20/18 08:32 Dose: 325 mg Carvedilol (Coreg) 12.5 mg PO Q12 [facility] Last Admin: 08/18/18 09:15 Dose: 12.5 mg Clopidogrel Bisulfate (Plavix) 75 mg PO DAILY [facility] Last Admin: 08/20/18 08:39 Dose: 75 mg Docusate Sodium (Colace) 100 mg PO BID [facility] Last Admin: 08/20/18 08:38 Dose: 100 mg Enalapril Maleate (Vasotec) 20 mg PO DAILY [facility] Last Admin: 08/18/18 09:19 Dose: 20 mg Fluticasone Propionate (Flonase) 1 spr LUIS BID [facility] Last Admin: 08/20/18 08:38 Dose: 1 spr Furosemide (Lasix) 20 mg PO DAILY [facility] Last Admin: 08/14/18 09:20 Dose: 20 mg Glipizide (Glucotrol) 5 mg PO ACBD [facility] Last Admin: 08/20/18 08:39 Dose: 5 mg Cefepime HCl 2 gm/ Sodium (Chloride) 100 mls @ 100 mls/hr IVPB Q8H [facility]; Protocol Last Admin: 08/20/18 03:31 Dose: 100 mls/hr Clindamycin Phosphate (Cleocin) 600 mg in 50 mls @ 100 mls/hr IVPB Q8H [facility]; Protocol Last Admin: 08/20/18 08:33 Dose: 100 mls/hr Dextrose/Sodium Chloride (Dextrose 5%-0.45% Ns 500 Ml) 500 mls @ 60 mls/hr IV .Q8H20M [facility] Stop: 08/20/18 14:44 Last Admin: 08/19/18 22:29 Dose: 60 mls/hr Lorazepam (Ativan) 0.5 mg PO Q12 [facility] Last Admin: 08/20/18 08:31 Dose: Not Given Magnesium Hydroxide (Milk Of Magnesia) 30 ml PO DAILY PRN PRN Reason: Constipation Methylprednisolone (Solu-Medrol) 40 mg IVP DAILY [facility] Last Admin: 08/20/18 08:40 Dose: 40 mg Montelukast Sodium (Singulair) 10 mg PO HS [facility] Last Admin: 08/19/18 22:28 Dose: Not Given Multivitamins/Minerals (Therapeutic-M Tab) 1 tab PO DAILY [facility] Last Admin: 08/20/18 08:40 Dose: 1 tab Pantoprazole Sodium (Protonix Ec Tab) 40 mg PO DAILY [facility] Last Admin: 08/20/18 08:39 Dose: 40 mg Physical Exam - Constitutional Appears: Confused - Head Exam Head Exam: ATRAUMATIC, NORMAL INSPECTION, NORMOCEPHALIC - Eye Exam Eye Exam: EOMI, Normal appearance, PERRL Pupil Exam: NORMAL ACCOMODATION, PERRL - ENT Exam ENT Exam: Mucous Membranes Moist, Normal Exam - Neck Exam Neck exam: Positive for: Normal Inspection - Respiratory Exam Respiratory Exam: Rales, Rhonchi, Wheezes - Cardiovascular Exam Cardiovascular Exam: REGULAR RHYTHM, +S1, +S2 - GI/Abdominal Exam GI & Abdominal Exam: Normal Bowel Sounds, Soft. absent: Tenderness - Rectal Exam Rectal Exam: Deferred - Extremities Exam Extremities exam: Positive for: normal inspection - Back Exam Back exam: NORMAL INSPECTION - Neurological Exam Neurological exam: Abnormal Gait, Altered, CN II-XII Intact, Reflexes Normal Additional comments: moves all extremities. does not follow any commands. - Psychiatric Exam Psychiatric exam: Normal Affect, Normal Mood - Skin Skin Exam: Dry, Intact, Normal Color, Warm Results - Vital Signs Recent Vital Signs: Last Vital Signs Temp 97.7 F 08/20/18 07:56 Pulse 138 H 08/20/18 07:56 Resp 18 08/20/18 07:56 BP 125/80 02/14/19 07:56 Pulse Ox 96 08/20/18 07:56 - Labs Result Diagrams: 08/20/18 10:30 08/19/18 04:30 Labs: Laboratory Results - last 24 hr 08/19/18 08/19/18 08/19/18 11:14 11:46 16:16 POC Glucose (mg/dL) 156 H 182 H Ammonia 49 08/19/18 08/20/18 21:40 05:33 POC Glucose (mg/dL) 172 H 191 H Ammonia Assessment & Plan (1) Toxic metabolic encephalopathy Assessment and Plan: Likely due to multiple underlying causes, including infection and metabolic derangements. I recommend obtaining a CT scan of the head to rule out any possible central causes. Otherwise, continue treating the underlying medical issues. Thank you for this consultation. Status: Acute
[2018-08-20 11:26] LABS: HEMOGLOBIN 8.4 g/dL (12.0-16.0); MEAN CELL VOLUME 99.9 fl (81.0-99.0); MEAN CORPUSCULAR HEMOGLOBIN 31.9 pg (27.0-31.0); MEAN CORPUSCULAR HGB CONC 31.9 g/dL (33.0-37.0); RBC 2.64 Mil/uL (3.80-5.20); RED CELL DISTRIBUTION WIDTH 17.1 % (11.5-14.5); WHITE BLOOD COUNT 14.8 K/uL (4.8-10.8)
[2018-08-20 11:33] LABS: CALCIUM 7.1 mg/dL (8.4-10.2)
--- NOTE | 2018-08-20 11:37 | CP.PCM.PN ---
Subjective - Date & Time of Evaluation Date of Evaluation: 08/20/18 Time of Evaluation: 11:30 - Subjective Subjective: Nephrology Attending Covering patients for Dr. Kleber Reaves Patient seen and examined at bedside. Crying in pain. Son at bedside at tempting to feed patient but notes she cannot keep anything down. Non-ambulant. Son does not note any somnolence, dizziness, DANGELO. Does note confusion. Patient planned for CT Head. SNa showing improvement now 136 today with Samsca use. Objective - Vital Signs/Intake and Output Vital Signs (last 24 hours): Temp Pulse Resp BP Pulse Ox 97.7 F 138 H 18 125/80 96 08/20/18 07:56 08/20/18 07:56 08/20/18 07:56 08/20/18 07:56 08/20/18 07:56 Intake and Output: 08/20/18 08/20/18 06:59 18:59 Intake Total 1600 Output Total 100 Balance 1500 - Medications Medications: Current Medications Acetaminophen (Tylenol 325mg Tab) 650 mg PO Q6 PRN PRN Reason: Pain, moderate (4-7) Albuterol Sulfate (Albuterol 0.083% Inhal Autumn (2.5 Mg/3 Ml) Ud) 2.5 mg INH RQ4 PRN PRN Reason: Shortness of Breath Albuterol/Ipratropium (Duoneb 3 Mg/0.5 Mg (3 Ml) Ud) 3 ml INH RQID [facility] Last Admin: 08/20/18 11:01 Dose: 3 ml Alendronate Sodium (Fosamax) 70 mg PO FRI [facility] Last Admin: 08/14/18 09:25 Dose: 70 mg Aspirin (Aspirin) 325 mg PO DAILY [facility] Last Admin: 08/20/18 08:32 Dose: 325 mg Carvedilol (Coreg) 12.5 mg PO Q12 [facility] Last Admin: 08/18/18 09:15 Dose: 12.5 mg Clopidogrel Bisulfate (Plavix) 75 mg PO DAILY [facility] Last Admin: 08/20/18 08:39 Dose: 75 mg Docusate Sodium (Colace) 100 mg PO BID [facility] Last Admin: 08/20/18 08:38 Dose: 100 mg Enalapril Maleate (Vasotec) 20 mg PO DAILY [facility] Last Admin: 08/18/18 09:19 Dose: 20 mg Fluticasone Propionate (Flonase) 1 spr LUIS BID [facility] Last Admin: 08/20/18 08:38 Dose: 1 spr Furosemide (Lasix) 20 mg PO DAILY [facility] Last Admin: 08/14/18 09:20 Dose: 20 mg Glipizide (Glucotrol) 5 mg PO ACBD [facility] Last Admin: 08/20/18 08:39 Dose: 5 mg Cefepime HCl 2 gm/ Sodium (Chloride) 100 mls @ 100 mls/hr IVPB Q8H [facility]; Protocol Last Admin: 08/20/18 03:31 Dose: 100 mls/hr Clindamycin Phosphate (Cleocin) 600 mg in 50 mls @ 100 mls/hr IVPB Q8H [facility]; Protocol Last Admin: 08/20/18 08:33 Dose: 100 mls/hr Dextrose/Sodium Chloride (Dextrose 5%-0.45% Ns 500 Ml) 500 mls @ 60 mls/hr IV .Q8H20M [facility] Stop: 08/20/18 14:44 Last Admin: 08/19/18 22:29 Dose: 60 mls/hr Lorazepam (Ativan) 0.5 mg PO Q12 [facility] Last Admin: 08/20/18 08:31 Dose: Not Given Magnesium Hydroxide (Milk Of Magnesia) 30 ml PO DAILY PRN PRN Reason: Constipation Methylprednisolone (Solu-Medrol) 40 mg IVP DAILY [facility] Last Admin: 08/20/18 08:40 Dose: 40 mg Montelukast Sodium (Singulair) 10 mg PO HS [facility] Last Admin: 08/19/18 22:28 Dose: Not Given Multivitamins/Minerals (Therapeutic-M Tab) 1 tab PO DAILY [facility] Last Admin: 08/20/18 08:40 Dose: 1 tab Pantoprazole Sodium (Protonix Ec Tab) 40 mg PO DAILY [facility] Last Admin: 08/20/18 08:39 Dose: 40 mg - Labs Labs: 08/20/18 10:30 08/20/18 10:30 - Constitutional Appears: Agitated, Cachectic, Chronically Ill - Head Exam Head Exam: ATRAUMATIC, NORMOCEPHALIC - Eye Exam Eye Exam: EOMI, Normal appearance - ENT Exam ENT Exam: Mucous Membranes Dry - Neck Exam Neck Exam: Full ROM - GI/Abdominal Exam GI & Abdominal Exam: Firm, Diminished Bowel Sounds - Extremities Exam Extremities Exam: absent: Calf Tenderness, Full ROM, Joint Swelling, Normal Capillary Refill, Pedal Edema, Tenderness - Neurological Exam Neurological Exam: Altered - Psychiatric Exam Psychiatric exam: Agitated - Skin Skin Exam: Dry, Intact, Normal Color, Warm Assessment and Plan - Assessment and Plan (Free Text) Assessment: 88 yo F with h/o COPD, psych d/o, HTN, hyperlipidemia, dementia, metastatic liver disease admitted for treatment of PNA, noted worsening of SNa during admission, treated with Samsca with improvement, now off therapy. Plan: - SNa 136 today, stable off therapy - continue to monitor serum sodium levels daily - no acute intervention required at this time - SCr stable 1.1 - Family meeting planned to discuss GOC
--- NOTE | 2018-08-20 13:20 | CT ---
Date of service: 08/20/2018 PROCEDURE: CT HEAD WITHOUT CONTRAST. HISTORY: AMS; liver cancer, r/o brain mets COMPARISON: 06/07/2018. TECHNIQUE: Axial computed tomography images were obtained through the head/brain without intravenous contrast. Radiation dose: Total exam DLP = 1571.18 mGy-cm. This CT exam was performed using one or more of the following dose reduction techniques: Automated exposure control, adjustment of the mA and/or kV according to patient size, and/or use of iterative reconstruction technique. FINDINGS: HEMORRHAGE: No intracranial hemorrhage. BRAIN: There are moderate chronic microangiopathic changes. There is no mass, mass effect or abnormal extra-axial fluid collection. There is no territorial infarction. The midline sagittal structures are normal.There are coarse atherosclerotic calcifications in the cavernous carotid and vertebral arteries. VENTRICLES: There is moderate age-related global parenchymal volume loss and proportionate enlargement of the ventricles and cortical sulci. CALVARIUM: There is no calvarial fracture or extracranial soft tissue swelling. PARANASAL SINUSES: There is mild polypoid mucosal thickening in the left maxillary sinus. The remaining included paranasal sinuses are clear. MASTOID AIR CELLS: Predominantly clear. OTHER FINDINGS: There is an old fracture deformity in the left lamina papyracea. IMPRESSION: No acute intracranial abnormality. Moderate chronic microangiopathic changes and moderate age-related global parenchymal volume loss.
--- NOTE | 2018-08-20 14:34 | RAD ---
Date of service: 08/20/2018 HISTORY: Painful Abdomen distension COMPARISON: None available. FINDINGS: BOWEL: No evidence of bowel obstruction. Retained stool noted. No gross hepatic or splenic enlargement. Splenic arterial calcifications noted in left upper quadrant of abdomen. BONES: Status post ORIF bilateral hips OTHER FINDINGS: None. IMPRESSION: Retained feces. No evidence of bowel obstruction.
--- NOTE | 2018-08-20 14:52 | PQF ---
PROVIDER RESPONSE TEXT: Stage I REVIEWER QUERY TEXT: Kidney Disease, Chronic CKD Stage Chronic Kidney Disease (CKD) is documented in the Medical Record. Please specify the disease stage ( includes probable or suspected) If in agreement: Such as: -- Chronic kidney disease Stage 1 -- Chronic kidney disease Stage 2 -- Chronic kidney disease Stage 3 -- Chronic kidney disease Stage 4 -- Chronic kidney disease Stage 5 -- Chronic kidney disease Stage 5, requiring dialysis -- End Stage Renal Disease -- Other, please specify Est GFR Amer >60 on 08/13->08/18 then:57->32 Est GFR Non- Amer: >60 on 08/13->08/17 then 59->47->27 Creatinine: not elevated through 08/19: then 1.8 08/19 Endocrinology progress note includes; mild CKD and likely chronic disease from underlying malign fabiana will give a dose of Procrit in an attempt to decrease transfusion requirements no iron/b12/folat e deficiency Stages are defined by the [employer] as follows: CKD Stage I GFR >= 90 ml / min per 1.73 m2 and persistent albuminuria CKD Stage 2 GFR between 60 and 89 with persistent albuminuria CKD Stage 3 GFR between 30 and 59 CKD Stage 4 GFR between 15 and 29 CKD Stage 5 GFR between <15 or End Stage Renal Disease The patient's Clinical Indicators include: ----- Query created by: Maddy Ruiz on 08/20/2018 1:08 PM Electronically signed by: Renny Patel MD 08/20/2018 2:48 PM
--- NOTE | 2018-08-20 14:52 | PQF ---
PROVIDER RESPONSE TEXT: suspected REVIEWER QUERY TEXT: Heart Failure Acuity and Type Congestive Heart Failure is documented in the Medical Record. Please document the type and acuity (in cludes probable or suspected) versus No CHF: history only and not a chronic condition Such as: Type: -- Combined systolic and diastolic (heart failure with reduced ejection fraction and diastolic) dysfu nction -- Diastolic (HFpEF) -- Systolic (HFrEF) -- Left heart failure -- Right heart failure -- Right heart failure due to left heart failure -- High output failure -- End stage heart failure -- Other, please specify Acuity: -- Acute -- Chronic -- Acute on chronic -- Other, please specify 08/17 CXR report includes: Little interval change in presumable mild congestive heart failure. 08/13 Pro BNP:4140 H and P includes; Hx. CHF -coreg, lasix The patient's Clinical Indicators include: ---- Query created by: Maddy Ruiz on 08/20/2018 1:02 PM Electronically signed by: Renny Patel MD 08/20/2018 2:48 PM
--- NOTE | 2018-08-20 14:52 | PQF ---
PROVIDER RESPONSE TEXT: Unable to getermine REVIEWER QUERY TEXT: Pneumonia Specificity HCAP Pneumonia is documented in the Medical Record. Please specify the type of pneumonia and the caus ative organism (includes probable or suspected) if known Such as: Type: -- Aspiration pneumonia (please also specify the aspirate) -- Bacterial (please document suspected or probable organism) -- Bronchopneumonia (please document suspected or probable organism) -- Viral -- Other, please specify --Unable to determine 08/17 CT Chest: includes: 1. Diminishing bilateral upper lobe pneumonia with [id number] residual.2.Slight increase in bilateral pleural effusions appearing [id number] volume bilatera lly, causing compressive atelectasis at the bilateral lower lobes. 4.Widespread hepatic metastases li joao worsen as liver appears to be enlarged. Attending progress notes include : SOB COPD/ Asthma CAP??Prov Atrovent Steroids ABX Pulmonary consul t 08/19 Hospitalist note: admitted on 08/13/18 in respiratory distress, diagnosed with Pneumonia and bein g treated with Clindamycin and Cefepime 08/20 Neurology consult includes: p Exam: Rales, Rhonchi, Wheezes The patient's Clinical Indicators include: -- Query created by: Maddy Ruiz on 08/20/2018 12:49 PM Electronically signed by: Renny Patel MD 08/20/2018 2:48 PM
--- NOTE | 2018-08-20 14:52 | PQF ---
PROVIDER RESPONSE TEXT: Moderate persistant REVIEWER QUERY TEXT: Asthma Specificity and Type Asthma is documented in the Medical Record. Please specify the type if known: Such as: -- Mild intermittent -- Mild persistent -- Moderate persistent -- Severe persistent -- Other, please specify H and P includes: admitted for persistent SOB asthma .Pt tx with course of oral steroids as outpt The patient's Clinical Indicators include: ---- Query created by: Maddy Ruiz on 08/20/2018 12:40 PM Electronically signed by: Renny Patel MD 08/20/2018 2:48 PM
[2018-08-20] MEDS: Morphine 4 MG/ML VIAL IVP PRN (15:58)
[2018-08-20] MEDS: Dextrose 5%/0.45% NS 1,000 ML IV SCH (16:50)
[2018-08-20 17:42] LABS: ALB/GLOB RATIO 1.3 (1.0-2.1); CALCIUM 6.6 mg/dL (8.4-10.2)
--- NOTE | 2018-08-20 19:06 | PN ---
DATE: 08/20/2018 SUBJECTIVE: This is an 88-year-old female with recent admission for acute pneumonitis with supervening exacerbation of COPD, currently on a tapering dose of Solu-Medrol as given and is now being followed closely for metabolic management. She also has a concomitant GI malignancy with liver metastasis as noted at this time. Her GGT level is 1306 with elevated liver transaminases, the last one which showed an AST of 624 and an ALT of 417 and alkaline phosphatase of 261. Her glycemic levels are fluctuating but improved and the glucose values have ranged from 191 to 223 mg/dL. Her chemistries showed a BUN of 62, sodium 137, potassium 4.9, chloride 103, CO2 of 16, glucose of 222 and creatinine is 1.8. So at this time, we will continue the low-dose glipizide given at 5 mg twice daily before meals as ordered. Will continue also the low dose correction scale using regular insulin as given. We will obtain serial chemistries and supplement accordingly as needed. We will follow. Billie Bruce MD
[2018-08-20 19:23] LABS: TROPONIN I 0.306 ng/mL (0.00-0.120)
--- NOTE | 2018-08-20 19:59 | CP.PCM.CON ---
History of Present Illness - History of Present Illness History of Present Illness: Hilario Alfred PGY1, Cardio Consult for Dr Pat Pt is an 88 yo female with a PMH of tobacco abuse, asthma, DM, HTN, PNA, COPD, SIADH, who was brought to the emergency department for SOB with a productive cough of yellow sputum. Most of the history was obtained from chart review and also from multiple family members at bedside. Past Patient History - Past Medical History & Family History Past Medical History?: Yes - Past Social History Smoking Status: Former Smoker Chewing Tobacco Use: No Cigar Use: No Alcohol: None Drugs: Denies - CARDIAC Hx Atrial Fibrillation: No Hx Cardia Arrhythmia: No Hx Congestive Heart Failure: Yes Hx Hypercholesterolemia: Yes Hx Hypertension: Yes Hx Mitral Valve Prolapse: No Hx Pacemaker: No Hx Peripheral Edema: No - PULMONARY Hx Asthma: Yes Hx Bronchitis: Yes Hx Chronic Obstructive Pulmonary Disease (COPD): Yes Hx Emphysema: No Hx Pneumonia: Yes Hx Pulmonary Embolism: No Hx Sleep Apnea: No - NEUROLOGICAL Hx Alzheimer's Disease: No Hx Dementia: No Hx Migraine: No Hx Multiple Sclerosis: No Hx Parkinson's Disease: No Hx Seizures: No Hx Transient Ischemic Attacks (TIA): No - HEENT Hx HEENT Problems: No - RENAL Hx Chronic Kidney Disease: No Hx Kidney Stones: No - ENDOCRINE/METABOLIC Hx Hyperthyroidism: No Hx Hypothyroidism: No - HEMATOLOGICAL/ONCOLOGICAL Hx Anemia: No Hx Human Immunodeficiency Virus (HIV): No Hx Sickle Cell Disease: No - INTEGUMENTARY Hx Dermatological Problems: No - MUSCULOSKELETAL/RHEUMATOLOGICAL Hx Arthritis: No Hx Fractures: Yes Hx Osteoporosis: No Hx Rheumatoid Arthritis: No - GASTROINTESTINAL Hx Crohn's Disease: No Hx Diverticulitis: No Hx Gall Bladder Disease: No Hx Gastritis: No Hx Pancreatitis: No - GENITOURINARY/GYNECOLOGICAL Hx Sexually Transmitted Disorders: No - PSYCHIATRIC Hx Anxiety: Yes Hx Bipolar Disorder: No Hx Depression: Yes Hx Paranoia: Yes Hx Post Traumatic Stress Disorder: No Hx Schizophrenia: No - SURGICAL HISTORY Hx Appendectomy: No Hx Carotid Endarterectomy: No Hx Cholecystectomy: No Hx Coronary Artery Bypass Graft: No Hx Coronary Stent: No Hx Tonsillectomy: No Other/Comment: Hemorrhoidectomy - ANESTHESIA Hx Anesthesia: Yes Hx Anesthesia Reactions: No Hx Malignant Hyperthermia: No Meds Allergies/Adverse Reactions: Allergies Allergy/AdvReac Type Severity Reaction Status Date / Time No Known Allergies Allergy Verified 06/16/18 14:16 - Medications Medications: Current Medications Acetaminophen (Tylenol 325mg Tab) 650 mg PO Q6 PRN PRN Reason: Pain, moderate (4-7) Albuterol Sulfate (Albuterol 0.083% Inhal Autumn (2.5 Mg/3 Ml) Ud) 2.5 mg INH RQ4 PRN PRN Reason: Shortness of Breath Albuterol/Ipratropium (Duoneb 3 Mg/0.5 Mg (3 Ml) Ud) 3 ml INH RQID [facility] Last Admin: 08/20/18 19:49 Dose: 3 ml Alendronate Sodium (Fosamax) 70 mg PO FRI [facility] Last Admin: 08/14/18 09:25 Dose: 70 mg Aspirin (Aspirin) 325 mg PO DAILY [facility] Last Admin: 08/20/18 08:37 Dose: Not Given Atorvastatin Calcium (Lipitor) 40 mg PO [facility] Carvedilol (Coreg) 12.5 mg PO Q12 [facility] Last Admin: 08/18/18 09:15 Dose: 12.5 mg Clopidogrel Bisulfate (Plavix) 75 mg PO DAILY [facility] Last Admin: 08/20/18 08:39 Dose: Not Given Docusate Sodium (Colace) 100 mg PO BID [facility] Last Admin: 08/20/18 16:48 Dose: Not Given Enalapril Maleate (Vasotec) 20 mg PO DAILY [facility] Last Admin: 08/18/18 09:19 Dose: 20 mg Fluticasone Propionate (Flonase) 1 spr LUIS BID [facility] Last Admin: 08/20/18 16:51 Dose: 1 spr Furosemide (Lasix) 20 mg PO DAILY [facility] Last Admin: 08/14/18 09:20 Dose: 20 mg Glipizide (Glucotrol) 5 mg PO ACBD [facility] Last Admin: 08/20/18 16:48 Dose: Not Given Cefepime HCl 2 gm/ Sodium (Chloride) 100 mls @ 100 mls/hr IVPB Q8H [facility]; Protocol Last Admin: 08/20/18 12:06 Dose: 100 mls/hr Clindamycin Phosphate (Cleocin) 600 mg in 50 mls @ 100 mls/hr IVPB Q8H [facility]; Protocol Last Admin: 08/20/18 16:51 Dose: 100 mls/hr Dextrose/Sodium Chloride (Dextrose 5%/0.45% Ns 1000 Ml) 1,000 mls @ 100 mls/hr IV .Q10H [facility] Stop: 08/21/18 15:41 Last Admin: 08/20/18 16:50 Dose: 100 mls/hr Diltiazem HCl 125 mg/ Sodium (Chloride) 125 mls @ 3 mls/hr IV .Q24H [facility]; Protocol Stop: 08/21/18 19:47 Lorazepam (Ativan) 0.5 mg PO Q12 [facility] Last Admin: 08/20/18 08:31 Dose: Not Given Magnesium Hydroxide (Milk Of Magnesia) 30 ml PO DAILY PRN PRN Reason: Constipation Methylprednisolone (Solu-Medrol) 40 mg IVP DAILY [facility] Last Admin: 08/20/18 08:40 Dose: 40 mg Montelukast Sodium (Singulair) 10 mg PO HS [facility] Last Admin: 08/19/18 22:28 Dose: Not Given Morphine Sulfate (Morphine) 2 mg IVP Q6 PRN PRN Reason: pain Last Admin: 08/20/18 15:58 Dose: 2 mg Multivitamins/Minerals (Therapeutic-M Tab) 1 tab PO DAILY [facility] Last Admin: 08/20/18 08:40 Dose: Not Given Pantoprazole Sodium (Protonix Ec Tab) 40 mg PO DAILY [facility] Last Admin: 08/20/18 08:40 Dose: Not Given Physical Exam - Head Exam Head Exam: ATRAUMATIC, NORMOCEPHALIC Additional comments: pt difficult to arouse, will not open eyes, moans in pain - ENT Exam ENT Exam: Mucous Membranes Moist Additional comments: poor dentition - Neck Exam Neck exam: Positive for: Full Rom - Respiratory Exam Respiratory Exam: Clear to Auscultation Bilateral, NORMAL BREATHING PATTERN. absent: Accessory Muscle Use, Wheezes, Respiratory Distress - Cardiovascular Exam Cardiovascular Exam: RRR, +S1, +S2. absent: Diastolic murmur, Systolic Murmur - GI/Abdominal Exam GI & Abdominal Exam: Normal Bowel Sounds, Soft. absent: Tenderness - Extremities Exam Extremities exam: Positive for: pedal pulses present. Negative for: pedal edema - Skin Skin Exam: Dry, Intact, Warm Results - Vital Signs Recent Vital Signs: Last Vital Signs Temp 98.2 F 08/20/18 19:28 Pulse 105 H 08/20/18 19:28 Resp 18 08/20/18 19:28 BP 122/68 08/20/18 19:28 Pulse Ox 94 L 08/20/18 19:28 - Labs Result Diagrams: 08/20/18 10:30 08/20/18 16:49 Labs: Laboratory Results - last 24 hr 08/19/18 08/20/18 08/20/18 21:40 05:33 10:30 WBC 14.8 H RBC 2.64 L Hgb 8.4 L Hct 26.4 L MCV 99.9 H MCH 31.9 H MCHC 31.9 L RDW 17.1 H Plt Count 158 Sodium Potassium Chloride Carbon Dioxide Anion Gap BUN Creatinine Est GFR ( Amer) Est GFR (Non-Af Amer) POC Glucose (mg/dL) 172 H 191 H Random Glucose Calcium Total Bilirubin AST ALT Alkaline Phosphatase Ammonia Troponin I NT-Pro-B Natriuret Pep Total Protein Albumin Globulin Albumin/Globulin Ratio 08/20/18 08/20/18 08/20/18 10:30 10:30 10:59 WBC RBC Hgb Hct MCV MCH MCHC RDW Plt Count Sodium 137 Potassium 4.9 Chloride 103 Carbon Dioxide 16 L Anion Gap 23 H BUN 62 H Creatinine 1.8 H Est GFR ( Amer) 32 Est GFR (Non-Af Amer) 27 POC Glucose (mg/dL) 223 H Random Glucose 222 H Calcium 7.1 L Total Bilirubin AST ALT Alkaline Phosphatase Ammonia 62 H D Troponin I NT-Pro-B Natriuret Pep Total Protein Albumin Globulin Albumin/Globulin Ratio 08/20/18 08/20/18 16:49 18:37 WBC RBC Hgb Hct MCV MCH MCHC RDW Plt Count Sodium 137 Potassium 4.9 Chloride 105 Carbon Dioxide 16 L Anion Gap 21 H BUN 65 H Creatinine 1.9 H Est GFR ( Amer) 30 Est GFR (Non-Af Amer) 25 POC Glucose (mg/dL) Random Glucose 197 H Calcium 6.6 L Total Bilirubin 1.3 AST 715 H ALT 580 H D Alkaline Phosphatase 231 H Ammonia Troponin I 0.3060 H* NT-Pro-B Natriuret Pep 70375 H Total Protein 5.3 L Albumin 3.0 L Globulin 2.3 Albumin/Globulin Ratio 1.3 Assessment & Plan - Assessment and Plan (Free Text) Assessment: NSTEMI, positive trops rule out ACS CAD DM HTN Plan: NSTEMI started statin pt already taking ASA pt already on Beta annia repeat troponin BNP follow up Follow up stat ECHO will continue medical management at this time Medications ASA Lipitor Coreg Plavix Pt seen, examined, assessment and plan discussed with Dr Bi Alfred PGY1 - Date & Time Date: 08/20/18 Time: 18:00
--- NOTE | 2018-08-20 20:05 | CP.PCM.PN ---
Subjective - Date & Time of Evaluation Date of Evaluation: 08/20/18 Time of Evaluation: 19:00 - Subjective Subjective: Moaning Objective - Vital Signs/Intake and Output Vital Signs (last 24 hours): Temp Pulse Resp BP Pulse Ox 98.2 F 105 H 18 122/68 94 L 08/20/18 19:28 08/20/18 19:28 08/20/18 19:28 08/20/18 19:28 08/20/18 19:28 - Medications Medications: Current Medications Acetaminophen (Tylenol 325mg Tab) 650 mg PO Q6 PRN PRN Reason: Pain, moderate (4-7) Albuterol Sulfate (Albuterol 0.083% Inhal Autumn (2.5 Mg/3 Ml) Ud) 2.5 mg INH RQ4 PRN PRN Reason: Shortness of Breath Albuterol/Ipratropium (Duoneb 3 Mg/0.5 Mg (3 Ml) Ud) 3 ml INH RQID [facility] Last Admin: 08/20/18 19:49 Dose: 3 ml Alendronate Sodium (Fosamax) 70 mg PO FRI [facility] Last Admin: 08/14/18 09:25 Dose: 70 mg Aspirin (Aspirin) 325 mg PO DAILY [facility] Last Admin: 08/20/18 08:37 Dose: Not Given Atorvastatin Calcium (Lipitor) 40 mg PO HS [facility] Carvedilol (Coreg) 12.5 mg PO Q12 [facility] Last Admin: 08/18/18 09:15 Dose: 12.5 mg Clopidogrel Bisulfate (Plavix) 75 mg PO DAILY [facility] Last Admin: 08/20/18 08:39 Dose: Not Given Docusate Sodium (Colace) 100 mg PO BID [facility] Last Admin: 08/20/18 16:48 Dose: Not Given Enalapril Maleate (Vasotec) 20 mg PO DAILY [facility] Last Admin: 08/18/18 09:19 Dose: 20 mg Fluticasone Propionate (Flonase) 1 spr LUIS BID [facility] Last Admin: 08/20/18 16:51 Dose: 1 spr Furosemide (Lasix) 20 mg PO DAILY [facility] Last Admin: 08/14/18 09:20 Dose: 20 mg Glipizide (Glucotrol) 5 mg PO ACBD [facility] Last Admin: 08/20/18 16:48 Dose: Not Given Cefepime HCl 2 gm/ Sodium (Chloride) 100 mls @ 100 mls/hr IVPB Q8H [facility]; Protocol Last Admin: 08/20/18 12:06 Dose: 100 mls/hr Clindamycin Phosphate (Cleocin) 600 mg in 50 mls @ 100 mls/hr IVPB Q8H [facility]; Protocol Last Admin: 08/20/18 16:51 Dose: 100 mls/hr Dextrose/Sodium Chloride (Dextrose 5%/0.45% Ns 1000 Ml) 1,000 mls @ 100 mls/hr IV .Q10H [facility] Stop: 08/21/18 15:41 Last Admin: 08/20/18 16:50 Dose: 100 mls/hr Diltiazem HCl 125 mg/ Sodium (Chloride) 125 mls @ 3 mls/hr IV .Q24H [facility]; Pr otocol Stop: 08/21/18 19:47 Lorazepam (Ativan) 0.5 mg PO Q12 [facility] Last Admin: 08/20/18 08:31 Dose: Not Given Magnesium Hydroxide (Milk Of Magnesia) 30 ml PO DAILY PRN PRN Reason: Constipation Methylprednisolone (Solu-Medrol) 40 mg IVP DAILY [facility] Last Admin: 08/20/18 08:40 Dose: 40 mg Montelukast Sodium (Singulair) 10 mg PO HS [facility] Last Admin: 08/19/18 22:28 Dose: Not Given Morphine Sulfate (Morphine) 2 mg IVP Q6 PRN PRN Reason: pain Last Admin: 08/20/18 15:58 Dose: 2 mg Multivitamins/Minerals (Therapeutic-M Tab) 1 tab PO DAILY [facility] Last Admin: 08/20/18 08:40 Dose: Not Given Pantoprazole Sodium (Protonix Ec Tab) 40 mg PO DAILY [facility] Last Admin: 08/20/18 08:40 Dose: Not Given - Labs Labs: 08/20/18 10:30 08/20/18 16:49 - Head Exam Head Exam: ATRAUMATIC - Eye Exam Eye Exam: Normal appearance - ENT Exam ENT Exam: Mucous Membranes Dry - Respiratory Exam Respiratory Exam: Decreased Breath Sounds - Cardiovascular Exam Cardiovascular Exam: +S1, +S2 Assessment and Plan (1) Anemia Assessment & Plan: H/H stable in the last few days likely anemia of chronic disease from malignancy anemia of CKD transfusion support PRN Status: Acute (2) Liver masses Assessment & Plan: likely metastatic disease noted elevated CEA and CA 19-9 ? colorectal CA ? pancreatic CA not a treatment candidate given debility Status: Acute (3) Leukocytosis Assessment & Plan: leukocytosis, on antibiotics Status: Acute
[2018-08-20] MEDS ORDERED: Sodium Chloride 0.9% 500 ML IV SCH (20:30)
--- NOTE | 2018-08-20 20:33 | CP.PCM.PN ---
Subjective - Date & Time of Evaluation Date of Evaluation: 08/20/18 Time of Evaluation: 02:22 - Subjective Subjective: Above events noted Long d/w [employer] last night and staff today Objective - Vital Signs/Intake and Output Vital Signs (last 24 hours): Temp Pulse Resp BP Pulse Ox 98.2 F 105 H 18 122/68 94 L 08/20/18 19:28 08/20/18 19:28 08/20/18 19:28 08/20/18 19:28 08/20/18 19:28 - Medications Medications: Current Medications Acetaminophen (Tylenol 325mg Tab) 650 mg PO Q6 PRN PRN Reason: Pain, moderate (4-7) Albuterol Sulfate (Albuterol 0.083% Inhal Autumn (2.5 Mg/3 Ml) Ud) 2.5 mg INH RQ4 PRN PRN Reason: Shortness of Breath Albuterol/Ipratropium (Duoneb 3 Mg/0.5 Mg (3 Ml) Ud) 3 ml INH RQID [facility] Last Admin: 08/20/18 19:49 Dose: 3 ml Alendronate Sodium (Fosamax) 70 mg PO FRI [facility] Last Admin: 08/14/18 09:25 Dose: 70 mg Aspirin (Aspirin) 325 mg PO DAILY [facility] Last Admin: 08/20/18 08:37 Dose: Not Given Atorvastatin Calcium (Lipitor) 40 mg PO HS [facility] Carvedilol (Coreg) 12.5 mg PO Q12 [facility] Last Admin: 08/18/18 09:15 Dose: 12.5 mg Clopidogrel Bisulfate (Plavix) 75 mg PO DAILY [facility] Last Admin: 08/20/18 08:39 Dose: Not Given Docusate Sodium (Colace) 100 mg PO BID [facility] Last Admin: 08/20/18 16:48 Dose: Not Given Enalapril Maleate (Vasotec) 20 mg PO DAILY [facility] Last Admin: 08/18/18 09:19 Dose: 20 mg Fluticasone Propionate (Flonase) 1 spr LUIS BID [facility] Last Admin: 08/20/18 16:51 Dose: 1 spr Furosemide (Lasix) 20 mg PO DAILY [facility] Last Admin: 08/14/18 09:20 Dose: 20 mg Glipizide (Glucotrol) 5 mg PO ACBD [facility] Last Admin: 08/20/18 16:48 Dose: Not Given Cefepime HCl 2 gm/ Sodium (Chloride) 100 mls @ 100 mls/hr IVPB Q8H [facility]; Protocol Last Admin: 08/20/18 12:06 Dose: 100 mls/hr Clindamycin Phosphate (Cleocin) 600 mg in 50 mls @ 100 mls/hr IVPB Q8H [facility]; Protocol Last Admin: 08/20/18 16:51 Dose: 100 mls/hr Dextrose/Sodium Chloride (Dextrose 5%/0.45% Ns 1000 Ml) 1,000 mls @ 100 mls/hr IV .Q10H [facility] Stop: 08/21/18 15:41 Last Admin: 08/20/18 16:50 Dose: 100 mls/hr Diltiazem HCl 125 mg/ Sodium (Chloride) 125 mls @ 3 mls/hr IV .Q24H [facility]; Protocol Stop: 08/21/18 19:47 Sodium Chloride (Sodium Chloride 0.9%) 500 mls @ 0 mls/hr IV .Q0M [facility] Stop: 08/21/18 20:21 Lorazepam (Ativan) 0.5 mg PO Q12 [facility] Last Admin: 08/20/18 08:31 Dose: Not Given Magnesium Hydroxide (Milk Of Magnesia) 30 ml PO DAILY PRN PRN Reason: Constipation Methylprednisolone (Solu-Medrol) 40 mg IVP DAILY [facility] Last Admin: 08/20/18 08:40 Dose: 40 mg Montelukast Sodium (Singulair) 10 mg PO HS [facility] Last Admin: 08/19/18 22:28 Dose: Not Given Morphine Sulfate (Morphine) 2 mg IVP Q6 PRN PRN Reason: pain Last Admin: 08/20/18 15:58 Dose: 2 mg Multivitamins/Minerals (Therapeutic-M Tab) 1 tab PO DAILY [facility] Last Admin: 08/20/18 08:40 Dose: Not Given Pantoprazole Sodium (Protonix Ec Tab) 40 mg PO DAILY [facility] Last Admin: 08/20/18 08:40 Dose: Not Given - Labs Labs: 08/20/18 10:30 08/20/18 16:49 - Respiratory Exam Respiratory Exam: NORMAL BREATHING PATTERN - Cardiovascular Exam Cardiovascular Exam: REGULAR RHYTHM - GI/Abdominal Exam GI & Abdominal Exam: Normal Bowel Sounds Assessment and Plan - Assessment and Plan (Free Text) Assessment: Mental status ?? CT scan no acute findings Neuro note appreciated NAYA Oliguria Prerenal ?? Hepatorenal ? Cardiac ?? IVF Nephrology Metastatic liver dx elevated CEA Ca 19-9 Ag Long d/w son and Oncology New NSTEMI + CE new S/P Acute ant wall VA O2 ASA Plavix JAYESH B-annia Nitrates Lasix Norvasc Cardiology Last Echo good LV fxn SOB COPD/ Asthma CAP?? Prov Atrovent Steroids ABX Pulmonary consult Hyponatremia 2 to SIADH ?? Samsca Hyperkalemia improved Kaexylate Nephrology Anemia Hx Rectal bleeding stable Hx rectal prolapse Hx hemorrhoids Refusing w/u
[2018-08-20] MEDS ORDERED: Sodium Chloride 0.9% 250 ML IV SCH (21:15)
[2018-08-20] MEDS ORDERED: MethylPREDNISolone 40 mg Vial IVP ONE (21:18)
[2018-08-21] MEDS: Morphine 4 MG/ML VIAL IVP PRN ×2 (01:08→13:14)
[2018-08-21] MEDS: Clindamycin 600mg/50ml D5W 600 MG/50 ML VIAL IVPB SCH ×2 (01:11→08:35)
[2018-08-21] MEDS: Dextrose 5%/0.45% NS 1,000 ML IV SCH (01:27)
[2018-08-21] MEDS: Cefepime 2 GM in Sodium Chloride 0.9% 100 ML IVPB SCH ×2 (04:06→12:45)
[2018-08-21 05:43] LABS: MEAN CELL VOLUME 101.9 fl (81.0-99.0); MEAN CORPUSCULAR HEMOGLOBIN 32.6 pg (27.0-31.0); RBC 2.45 Mil/uL (3.80-5.20); RED CELL DISTRIBUTION WIDTH 17.8 % (11.5-14.5)
[2018-08-21 05:59] LABS: ALB/GLOB RATIO 1.2 (1.0-2.1); ALBUMIN 2.9 g/dL (3.5-5.0); CALCIUM 6.5 mg/dL (8.4-10.2)
[2018-08-21 06:26] VITALS: RESP 18
[2018-08-21] MEDS: Albuterol-Ipratrop 3 mg / 0.5 (3 ml) UD INH SCH ×2 (07:01→13:01)
[2018-08-21] MEDS: Multivitamin With Minerals Tab PO SCH (08:33)
[2018-08-21] MEDS: Pantoprazole 40 mg EC Tab PO SCH (08:33)
[2018-08-21] MEDS: ALENDRONATE 70 MG TAB PO SCH (08:34)
[2018-08-21] MEDS: MethylPREDNISolone 40 mg Vial IVP SCH (08:36)
--- NOTE | 2018-08-21 09:52 | CP.PCM.PN ---
Subjective - Date & Time of Evaluation Date of Evaluation: 08/21/18 Time of Evaluation: 09:52 - Subjective Subjective: Seen on morning rounds. Appears in distress, non-verbal. Moaning and holding her abdomen as if she has pain. Does not follow any commands. Son is present at the bedside, he defers to Dr Patel regarding Hospice decision. POLE INSPECTOR entered the room and relates discussion with Dr Patel and decision for Hospice referal. It appears the family is in agreement for evaluation by the Hospice nurse. Objective - Vital Signs/Intake and Output Vital Signs (last 24 hours): Temp Pulse Resp BP Pulse Ox 98.9 F 112 H 18 96/58 L 93 L 08/21/18 05:00 08/21/18 08:32 08/21/18 05:00 08/21/18 08:32 08/21/18 05:00 Intake and Output: 08/20/18 08/21/18 23:59 11:59 Intake Total 29 22 Balance 29 22 - Medications Medications: Current Medications Acetaminophen (Tylenol 325mg Tab) 650 mg PO Q6 PRN PRN Reason: Pain, moderate (4-7) Albuterol Sulfate (Albuterol 0.083% Inhal Autumn (2.5 Mg/3 Ml) Ud) 2.5 mg INH RQ4 PRN PRN Reason: Shortness of Breath Albuterol/Ipratropium (Duoneb 3 Mg/0.5 Mg (3 Ml) Ud) 3 ml INH RQID [facility] Last Admin: 08/21/18 07:01 Dose: 3 ml Alendronate Sodium (Fosamax) 70 mg PO FRI [facility] Last Admin: 08/21/18 08:34 Dose: Not Given Aspirin (Aspirin) 325 mg PO DAILY [facility] Last Admin: 08/21/18 08:31 Dose: Not Given Atorvastatin Calcium (Lipitor) 40 mg PO HS [facility] Last Admin: 08/21/18 08:33 Dose: Not Given Carvedilol (Coreg) 12.5 mg PO Q12 [facility] Last Admin: 08/21/18 08:32 Dose: Not Given Clopidogrel Bisulfate (Plavix) 75 mg PO DAILY [facility] Last Admin: 08/21/18 08:33 Dose: Not Given Docusate Sodium (Colace) 100 mg PO BID [facility] Last Admin: 08/21/18 08:32 Dose: Not Given Enalapril Maleate (Vasotec) 20 mg PO DAILY [facility] Last Admin: 08/18/18 09:19 Dose: 20 mg Fluticasone Propionate (Flonase) 1 spr LUIS BID [facility] Last Admin: 08/21/18 08:35 Dose: 1 spr Furosemide (Lasix) 20 mg PO DAILY [facility] Last Admin: 08/14/18 09:20 Dose: 20 mg Glipizide (Glucotrol) 5 mg PO ACBD [facility] Last Admin: 08/21/18 08:33 Dose: Not Given Cefepime HCl 2 gm/ Sodium (Chloride) 100 mls @ 100 mls/hr IVPB Q8H [facility]; Protocol Last Admin: 08/21/18 04:06 Dose: Not Given Clindamycin Phosphate (Cleocin) 600 mg in 50 mls @ 100 mls/hr IVPB Q8H [facility]; Protocol Last Admin: 08/21/18 08:35 Dose: 100 mls/hr Dextrose/Sodium Chloride (Dextrose 5%/0.45% Ns 1000 Ml) 1,000 mls @ 100 mls/hr IV .Q10H [facility] Stop: 08/21/18 15:41 Last Admin: 08/21/18 01:27 Dose: Not Given Diltiazem HCl 125 mg/ Sodium (Chloride) 125 mls @ 3 mls/hr IV .Q24H [facility]; Protocol Stop: 08/21/18 19:47 Last Titration: 08/21/18 03:39 Dose: 3 mg/hr, 3 mls/hr Lorazepam (Ativan) 0.5 mg PO Q12 [facility] Last Admin: 08/21/18 08:31 Dose: Not Given Magnesium Hydroxide (Milk Of Magnesia) 30 ml PO DAILY PRN PRN Reason: Constipation Methylprednisolone (Solu-Medrol) 40 mg IVP DAILY [facility] Last Admin: 08/21/18 08:36 Dose: 40 mg Montelukast Sodium (Singulair) 10 mg PO HS [facility] Last Admin: 08/20/18 21:39 Dose: Not Given Morphine Sulfate (Morphine) 2 mg IVP Q6 PRN PRN Reason: pain Last Admin: 08/21/18 01:08 Dose: 2 mg Multivitamins/Minerals (Therapeutic-M Tab) 1 tab PO DAILY [facility] Last Admin: 08/21/18 08:33 Dose: Not Given Pantoprazole Sodium (Protonix Ec Tab) 40 mg PO DAILY [facility] Last Admin: 08/21/18 08:33 Dose: Not Given - Labs Labs: 08/21/18 04:30 08/21/18 04:30 Assessment and Plan (1) NSTEMI (non-ST elevated myocardial infarction) Status: Acute (2) Pneumonia Status: Acute (3) Bronchial asthma Status: Chronic
--- NOTE | 2018-08-21 09:57 | CP.PCM.PCO ---
Assessment & Plan - Assessment and Plan (Free Text) Assessment: Advanced directives discussed with patient's son Pablo- who wishes comfort care and Hospice for pt with DNR/DNI status Son also d/w who requested hospice eval
--- NOTE | 2018-08-21 10:22 | CP.PCM.PN ---
Subjective - Date & Time of Evaluation Date of Evaluation: 08/21/18 Time of Evaluation: 09:15 - Subjective Subjective: SOMEWHAT CONFUSED BUT DENIES CHEST PAIN Objective - Vital Signs/Intake and Output Vital Signs (last 24 hours): Temp Pulse Resp BP Pulse Ox 98.9 F 112 H 18 96/58 L 93 L 08/21/18 05:00 08/21/18 08:32 08/21/18 05:00 08/21/18 08:32 08/21/18 05:00 Intake and Output: 08/21/18 08/21/18 06:59 18:59 Intake Total 51 Balance 51 - Medications Medications: Current Medications Acetaminophen (Tylenol 325mg Tab) 650 mg PO Q6 PRN PRN Reason: Pain, moderate (4-7) Albuterol Sulfate (Albuterol 0.083% Inhal Autumn (2.5 Mg/3 Ml) Ud) 2.5 mg INH RQ4 PRN PRN Reason: Shortness of Breath Albuterol/Ipratropium (Duoneb 3 Mg/0.5 Mg (3 Ml) Ud) 3 ml INH RQID [facility] Last Admin: 08/21/18 07:01 Dose: 3 ml Alendronate Sodium (Fosamax) 70 mg PO FRI [facility] Last Admin: 08/21/18 08:34 Dose: Not Given Aspirin (Aspirin) 325 mg PO DAILY [facility] Last Admin: 08/21/18 08:31 Dose: Not Given Atorvastatin Calcium (Lipitor) 40 mg PO HS [facility] Last Admin: 08/21/18 08:33 Dose: Not Given Carvedilol (Coreg) 12.5 mg PO Q12 [facility] Last Admin: 08/21/18 08:32 Dose: Not Given Clopidogrel Bisulfate (Plavix) 75 mg PO DAILY [facility] Last Admin: 08/21/18 08:33 Dose: Not Given Docusate Sodium (Colace) 100 mg PO BID [facility] Last Admin: 08/21/18 08:32 Dose: Not Given Enalapril Maleate (Vasotec) 20 mg PO DAILY [facility] Last Admin: 08/18/18 09:19 Dose: 20 mg Fluticasone Propionate (Flonase) 1 spr LUIS BID [facility] Last Admin: 08/21/18 08:35 Dose: 1 spr Furosemide (Lasix) 20 mg PO DAILY [facility] Last Admin: 08/14/18 09:20 Dose: 20 mg Glipizide (Glucotrol) 5 mg PO ACBD [facility] Last Admin: 08/21/18 08:33 Dose: Not Given Cefepime HCl 2 gm/ Sodium (Chloride) 100 mls @ 100 mls/hr IVPB Q8H [facility]; Protocol Last Admin: 08/21/18 04:06 Dose: Not Given Clindamycin Phosphate (Cleocin) 600 mg in 50 mls @ 100 mls/hr IVPB Q8H [facility]; Protocol Last Admin: 08/21/18 08:35 Dose: 100 mls/hr Dextrose/Sodium Chloride (Dextrose 5%/0.45% Ns 1000 Ml) 1,000 mls @ 100 mls/hr IV .Q10H [facility] Stop: 08/21/18 15:41 Last Admin: 08/21/18 01:27 Dose: Not Given Diltiazem HCl 125 mg/ Sodium (Chloride) 125 mls @ 3 mls/hr IV .Q24H [facility]; Pr otocol Stop: 08/21/18 19:47 Last Titration: 08/21/18 03:39 Dose: 3 mg/hr, 3 mls/hr Lorazepam (Ativan) 0.5 mg PO Q12 [facility] Last Admin: 08/21/18 08:31 Dose: Not Given Magnesium Hydroxide (Milk Of Magnesia) 30 ml PO DAILY PRN PRN Reason: Constipation Methylprednisolone (Solu-Medrol) 40 mg IVP DAILY [facility] Last Admin: 08/21/18 08:36 Dose: 40 mg Montelukast Sodium (Singulair) 10 mg PO HS [facility] Last Admin: 08/20/18 21:39 Dose: Not Given Morphine Sulfate (Morphine) 2 mg IVP Q6 PRN PRN Reason: pain Last Admin: 08/21/18 01:08 Dose: 2 mg Multivitamins/Minerals (Therapeutic-M Tab) 1 tab PO DAILY [facility] Last Admin: 08/21/18 08:33 Dose: Not Given Pantoprazole Sodium (Protonix Ec Tab) 40 mg PO DAILY [facility] Last Admin: 08/21/18 08:33 Dose: Not Given - Labs Labs: 08/21/18 04:30 08/21/18 04:30 - Respiratory Exam Respiratory Exam: Decreased Breath Sounds, Rales - Cardiovascular Exam Cardiovascular Exam: Tachycardia, Irregular Rhythm, +S1, +S2 - Additional Findings 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
--- NOTE | 2018-08-21 11:23 | CP.PCM.PN ---
Subjective - Date & Time of Evaluation Date of Evaluation: 08/21/18 Time of Evaluation: 11:22 - Subjective Subjective: Worsening kidney function Worsening medical condition Patient is being evaluated for hospice now Therefore patient is going to have supportive management Will sign off the case please let me know if otherwise Objective - Vital Signs/Intake and Output Vital Signs (last 24 hours): Temp Pulse Resp BP Pulse Ox 98.9 F 112 H 18 96/58 L 93 L 08/21/18 05:00 08/21/18 08:32 08/21/18 05:00 08/21/18 08:32 08/21/18 05:00 Intake and Output: 08/21/18 08/21/18 06:59 18:59 Intake Total 51 Balance 51 - Medications Medications: Current Medications Acetaminophen (Tylenol 325mg Tab) 650 mg PO Q6 PRN PRN Reason: Pain, moderate (4-7) Albuterol Sulfate (Albuterol 0.083% Inhal Autumn (2.5 Mg/3 Ml) Ud) 2.5 mg INH RQ4 PRN PRN Reason: Shortness of Breath Albuterol/Ipratropium (Duoneb 3 Mg/0.5 Mg (3 Ml) Ud) 3 ml INH RQID [facility] Last Admin: 08/21/18 07:01 Dose: 3 ml Alendronate Sodium (Fosamax) 70 mg PO FRI [facility] Last Admin: 08/21/18 08:34 Dose: Not Given Aspirin (Aspirin) 325 mg PO DAILY [facility] Last Admin: 08/21/18 08:31 Dose: Not Given Atorvastatin Calcium (Lipitor) 40 mg PO HS [facility] Last Admin: 08/21/18 08:33 Dose: Not Given Carvedilol (Coreg) 12.5 mg PO Q12 [facility] Last Admin: 08/21/18 08:32 Dose: Not Given Clopidogrel Bisulfate (Plavix) 75 mg PO DAILY [facility] Last Admin: 08/21/18 08:33 Dose: Not Given Docusate Sodium (Colace) 100 mg PO BID [facility] Last Admin: 08/21/18 08:32 Dose: Not Given Enalapril Maleate (Vasotec) 20 mg PO DAILY [facility] Last Admin: 08/18/18 09:19 Dose: 20 mg Fluticasone Propionate (Flonase) 1 spr LUIS BID [facility] Last Admin: 08/21/18 08:35 Dose: 1 spr Furosemide (Lasix) 20 mg PO DAILY [facility] Last Admin: 08/14/18 09:20 Dose: 20 mg Glipizide (Glucotrol) 5 mg PO ACBD [facility] Last Admin: 08/21/18 08:33 Dose: Not Given Cefepime HCl 2 gm/ Sodium (Chloride) 100 mls @ 100 mls/hr IVPB Q8H [facility]; Protocol Last Admin: 08/21/18 04:06 Dose: Not Given Clindamycin Phosphate (Cleocin) 600 mg in 50 mls @ 100 mls/hr IVPB Q8H [facility]; Protocol Last Admin: 08/21/18 08:35 Dose: 100 mls/hr Dextrose/Sodium Chloride (Dextrose 5%/0.45% Ns 1000 Ml) 1,000 mls @ 100 mls/hr IV .Q10H [facility] Stop: 08/21/18 15:41 Last Admin: 08/21/18 01:27 Dose: Not Given Diltiazem HCl 125 mg/ Sodium (Chloride) 125 mls @ 3 mls/hr IV .Q24H [facility]; Protocol Stop: 08/21/18 19:47 Last Titration: 08/21/18 03:39 Dose: 3 mg/hr, 3 mls/hr Lorazepam (Ativan) 0.5 mg PO Q12 [facility] Last Admin: 08/21/18 08:31 Dose: Not Given Magnesium Hydroxide (Milk Of Magnesia) 30 ml PO DAILY PRN PRN Reason: Constipation Methylprednisolone (Solu-Medrol) 40 mg IVP DAILY [facility] Last Admin: 08/21/18 08:36 Dose: 40 mg Montelukast Sodium (Singulair) 10 mg PO HS [facility] Last Admin: 08/20/18 21:39 Dose: Not Given Morphine Sulfate (Morphine) 2 mg IVP Q6 PRN PRN Reason: pain Last Admin: 08/21/18 01:08 Dose: 2 mg Multivitamins/Minerals (Therapeutic-M Tab) 1 tab PO DAILY [facility] Last Admin: 08/21/18 08:33 Dose: Not Given Pantoprazole Sodium (Protonix Ec Tab) 40 mg PO DAILY [facility] Last Admin: 08/21/18 08:33 Dose: Not Given - Labs Labs: 08/21/18 04:30 08/21/18 04:30 Assessment and Plan (1) SIADH (syndrome of inappropriate ADH production) Status: Acute
--- NOTE | 2018-08-21 11:50 | CARD ---
APPROVED REPORT Date of service: 08/21/2018 EKG Measurement Heart [id number] <Conclusion> Atrial fibrillation with rapid ventricular response Low voltage QRS ST & T wave abnormality, consider anterolateral ischemia Abnormal ECG
[2018-08-21] MEDS ORDERED: Sod Polystyrene Sulf 15 gm/60 ml Susp PR ONE (12:02)
[2018-08-21 12:33] VITALS: BP 105/55; PULSE 118; TEMP 97.4; O2SAT 97
--- NOTE | 2018-08-21 13:30 | PQF ---
PROVIDER RESPONSE TEXT: WBC 2 to sterois REVIEWER QUERY TEXT: Clarification of Clinical Diagnostic Findings Please clarify if there is an additional diagnosis to go along with the following clinical labs and V /S listed in the EMR: in an 88 year old patient with a dx. of A-Fib with RVR, Pneumonia, CA with mets , COPD, NAYA etc :admitted on . Admission WBC: 11.3-.9.2->9.2---- 08/16-08/21: WBC:14.6->15.0->14.1->14.8->14.0 08/18:P.M: Pulse:109->109->89->110->108->122->126->123->92-.125->136 120-> 125 08/15 Procalcitionin:40.62->44.28 08/15 Creatinine:0.7----08/20: 1.8->1.9->2.3 08/18 O2 sat: low 87 and 08/19 O2 sat low:90 OR: Disagree OR: Other explanation of clinical findings ER: Clinical Impression: HCAP (healthcare-associated pneumonia) 08/18 ID note incdes:HCAP Acute Assesment : improving pneumonia/ resp status .Has mets. to liver 08/19 Hematology/Oncology note includes: Leukocytosis: on antibiotics 08/20 Neuro consult: note includes: Toxic Metabolic Encephalopathy 08/20 Attending progress note includes: NAYA Oliguria Prerenal ??Hepatorenal ?Cardiac ?? IVF Nephrology The patient's Clinical Indicators include: ----- Query created by: Maddy Ruiz on 08/21/2018 8:56 AM Electronically signed by: Renny Patel MD 08/21/2018 1:28 PM
--- NOTE | 2018-08-21 13:34 | CP.PCM.PN ---
Subjective - Date & Time of Evaluation Date of Evaluation: 08/21/18 Time of Evaluation: 09:00 - Subjective Subjective: Worsening medical condition Patient is being evaluated for hospice now Therefore patient is going to have supportive management Will sign off the case please let me know if otherwise Objective - Vital Signs/Intake and Output Vital Signs (last 24 hours): Temp Pulse Resp BP Pulse Ox 97.4 F L 118 H 18 105/55 L 97 08/21/18 12:31 08/21/18 12:31 08/21/18 12:31 08/21/18 12:31 08/21/18 12:31 Intake and Output: 08/21/18 08/21/18 06:59 18:59 Intake Total 51 Balance 51 - Medications Medications: Current Medications Acetaminophen (Tylenol 325mg Tab) 650 mg PO Q6 PRN PRN Reason: Pain, moderate (4-7) Albuterol Sulfate (Albuterol 0.083% Inhal Autumn (2.5 Mg/3 Ml) Ud) 2.5 mg INH RQ4 PRN PRN Reason: Shortness of Breath Albuterol/Ipratropium (Duoneb 3 Mg/0.5 Mg (3 Ml) Ud) 3 ml INH RQID [facility] Last Admin: 08/21/18 13:01 Dose: Not Given Alendronate Sodium (Fosamax) 70 mg PO FRI [facility] Last Admin: 08/21/18 08:34 Dose: Not Given Aspirin (Aspirin) 325 mg PO DAILY [facility] Last Admin: 08/21/18 08:31 Dose: Not Given Atorvastatin Calcium (Lipitor) 40 mg PO HS [facility] Last Admin: 08/21/18 08:33 Dose: Not Given Carvedilol (Coreg) 12.5 mg PO Q12 [facility] Last Admin: 08/21/18 08:32 Dose: Not Given Clopidogrel Bisulfate (Plavix) 75 mg PO DAILY [facility] Last Admin: 08/21/18 08:33 Dose: Not Given Docusate Sodium (Colace) 100 mg PO BID [facility] Last Admin: 08/21/18 08:32 Dose: Not Given Enalapril Maleate (Vasotec) 20 mg PO DAILY [facility] Last Admin: 08/18/18 09:19 Dose: 20 mg Fluticasone Propionate (Flonase) 1 spr LUIS BID [facility] Last Admin: 08/21/18 08:35 Dose: 1 spr Furosemide (Lasix) 20 mg PO DAILY [facility] Last Admin: 08/14/18 09:20 Dose: 20 mg Glipizide (Glucotrol) 5 mg PO ACBD [facility] Last Admin: 08/21/18 08:33 Dose: Not Given Cefepime HCl 2 gm/ Sodium (Chloride) 100 mls @ 100 mls/hr IVPB Q8H [facility]; Protocol Last Admin: 08/21/18 12:45 Dose: 100 mls/hr Clindamycin Phosphate (Cleocin) 600 mg in 50 mls @ 100 mls/hr IVPB Q8H [facility]; Protocol Last Admin: 08/21/18 08:35 Dose: 100 mls/hr Dextrose/Sodium Chloride (Dextrose 5%/0.45% Ns 1000 Ml) 1,000 mls @ 100 mls/hr IV .Q10H [facility] Stop: 08/21/18 15:41 Last Admin: 08/21/18 01:27 Dose: Not Given Diltiazem HCl 125 mg/ Sodium (Chloride) 125 mls @ 3 mls/hr IV .Q24H [facility]; Protocol Stop: 08/21/18 19:47 Last Titration: 08/21/18 03:39 Dose: 3 mg/hr, 3 mls/hr Lorazepam (Ativan) 0.5 mg PO Q12 [facility] Last Admin: 08/21/18 08:31 Dose: Not Given Magnesium Hydroxide (Milk Of Magnesia) 30 ml PO DAILY PRN PRN Reason: Constipation Methylprednisolone (Solu-Medrol) 40 mg IVP DAILY [facility] Last Admin: 08/21/18 08:36 Dose: 40 mg Montelukast Sodium (Singulair) 10 mg PO HS [facility] Last Admin: 08/20/18 21:39 Dose: Not Given Morphine Sulfate (Morphine) 2 mg IVP Q6 PRN PRN Reason: pain Last Admin: 08/21/18 13:14 Dose: 2 mg Multivitamins/Minerals (Therapeutic-M Tab) 1 tab PO DAILY [facility] Last Admin: 08/21/18 08:33 Dose: Not Given Pantoprazole Sodium (Protonix Ec Tab) 40 mg PO DAILY [facility] Last Admin: 08/21/18 08:33 Dose: Not Given - Labs Labs: 08/21/18 04:30 08/21/18 04:30 - Constitutional Appears: Confused, Cachectic, Chronically Ill - Head Exam Head Exam: NORMOCEPHALIC - Eye Exam Eye Exam: absent: Scleral icterus - ENT Exam ENT Exam: Mucous Membranes Dry - Neck Exam Neck Exam: absent: Lymphadenopathy - Respiratory Exam Respiratory Exam: Decreased Breath Sounds, Rales, Rhonchi - Cardiovascular Exam Cardiovascular Exam: REGULAR RHYTHM, +S1, +S2 - GI/Abdominal Exam GI & Abdominal Exam: Distended, Soft - Rectal Exam Rectal Exam: Deferred - Exam Exam: NORMAL INSPECTION - Extremities Exam Extremities Exam: Pedal Edema - Back Exam Back Exam: absent: CVA tenderness (L), CVA tenderness (R) - Neurological Exam Neurological Exam: Altered Assessment and Plan (1) Elevated LFTs Status: Acute (2) HCAP (healthcare-associated pneumonia) Status: Acute (3) NSTEMI (non-ST elevated myocardial infarction) Status: Acute (4) SIADH (syndrome of inappropriate ADH production) Status: Acute (5) Acute [place] Status: Acute (6) Liver masses Status: Acute - Assessment and Plan (Free Text) Assessment: cultures all neg Worsening medical condition- metastatic CA Patient is being evaluated for hospice now Therefore patient is going to have supportive management Will sign off the case please let me know if otherwise
--- NOTE | 2018-08-21 17:38 | PN ---
DATE: 08/21/2018 ENDOCRINOLOGY FOLLOWUP NOTE LOCATION: Room 410. SUBJECTIVE: This is an 88-year-old female with recent uncontrolled type 2 insulin-requiring diabetes, presenting here with acute pneumonitis and exacerbation of COPD and is now being followed closely for metabolic management. Her glycemic levels are fluctuating but improved and the glucose values have ranged from 243-246 mg/dL. LABORATORY DATA: Her chemistry showed a BUN of 72, sodium 133, potassium 5.4, chloride 103, CO2 is 12, glucose is 252 and creatinine is 2.3. ASSESSMENT AND PLAN: So at this time, the patient is still on Solu-Medrol given as a tapering dose of 40 IV every day as ordered. We will modify her glipizide to a higher dosing of 10 mg b.i.d. before meals to start at dinnertime today as ordered. We will continue the low-dose correction scale using regular insulin as ordered. We will obtain serial chemistries and supplement accordingly as needed. We will follow. Billie Bruce MD
--- NOTE | 2018-08-21 18:03 | CP.PCM.PN ---
Subjective - Date & Time of Evaluation Date of Evaluation: 08/21/18 Time of Evaluation: 22:22 - Subjective Subjective: Pt worsening Dec urine output Objective - Vital Signs/Intake and Output Vital Signs (last 24 hours): Temp Pulse Resp BP Pulse Ox 97.4 F L 118 H 18 105/55 L 97 08/21/18 12:31 08/21/18 12:31 08/21/18 12:31 08/21/18 12:31 08/21/18 12:31 Intake and Output: 08/21/18 08/21/18 06:59 18:59 Intake Total 51 Balance 51 - Labs Labs: 08/21/18 04:30 08/21/18 04:30 - Respiratory Exam Respiratory Exam: NORMAL BREATHING PATTERN - Cardiovascular Exam Cardiovascular Exam: REGULAR RHYTHM - GI/Abdominal Exam GI & Abdominal Exam: Normal Bowel Sounds Assessment and Plan - Assessment and Plan (Free Text) Assessment: ADR DNR DNI long d/w [facility] and staff Hospice evaluation Metastatic liver dx elevated CEA Ca 19-9 Ag Mental status ?? CT scan no acute findings Neuro note appreciated NAYA Oliguria Prerenal ?? Hepatorenal ? Cardiac ?? IVF Nephrology New NSTEMI + CE new S/P Acute ant wall VA O2 ASA Plavix JAYESH B-[place] Nitrates Lasix Norvasc Cardiology Last Echo good LV fxn SOB COPD/ Asthma CAP?? Prov Atrovent Steroids ABX Pulmonary consult Hyponatremia 2 to SIADH ?? Samsca Hyperkalemia improved Kaexylate Nephrology Anemia Hx Rectal bleeding stable Hx rectal prolapse Hx hemorrhoids Refusing w/u
--- NOTE | 2018-08-22 16:42 | CP.PCM.PN ---
Subjective - Date & Time of Evaluation Date of Evaluation: 08/22/18 Time of Evaluation: 20:00 - Subjective Subjective: Moaning, events noted, for hospice. Objective - Vital Signs/Intake and Output Vital Signs (last 24 hours): Temp Pulse Resp BP Pulse Ox 97.4 F L 118 H 18 105/55 L 97 08/21/18 12:31 08/21/18 12:31 08/21/18 12:31 08/21/18 12:31 08/21/18 12:31 - Labs Labs: 08/21/18 04:30 08/21/18 04:30 - Head Exam Head Exam: ATRAUMATIC - Eye Exam Eye Exam: Normal appearance - ENT Exam ENT Exam: Mucous Membranes Dry - Respiratory Exam Respiratory Exam: Decreased Breath Sounds - Cardiovascular Exam Cardiovascular Exam: +S1, +S2 - GI/Abdominal Exam GI & Abdominal Exam: Normal Bowel Sounds Assessment and Plan (1) Anemia Status: Acute (2) Liver masses Status: Acute (3) Leukocytosis Status: Acute
--- NOTE | 2018-08-23 15:27 | PQF ---
PROVIDER RESPONSE TEXT: NEW ONSET AND PERSISTENT REVIEWER QUERY TEXT: Atrial Fibrillation Type Atrial fibrillation is documented in the Medical Record. Please specify the type if known Such as: -- Chronic -- Paroxysmal -- Permanent -- Persistent -- Other, please specify 08/16 Cardiology progress note includes: the diagnosis A-Fib: I considered digitalizing her for the A -Fib but will not due to the elevated LFT--will increase carvedilol to try to control her A-Fib. The patient's Clinical Indicators include: ----- Query created by: Maddy Ruiz on 08/20/2018 12:53 PM Electronically signed by: Avel Roth MD 08/23/2018 3:23 PM
== END 2018-08-21 15:15 | disposition hospice, inpatient (51) | DRG 280 ==
LOC: H.ER 18:23 → UNDOADMIN 22:11 → H.ERHOLD 22:11 → H.TEL 08-14 00:56
PROVIDERS: ADMIT Family Medicine Geriatric Medicine; ATTEND Family Medicine Geriatric Medicine
DX: I21.4 Non-ST elevation (NSTEMI) myocardial infarction (principal); J18.9 Pneumonia, unspecified organism; G92 Toxic encephalopathy; J44.1 Chronic obstructive pulmonary disease with (acute) exacerbation; C78.7 Secondary malignant neoplasm of liver and intrahepatic bile duct; E22.2 Syndrome of inappropriate secretion of antidiuretic hormone; N17.9 Acute kidney failure, unspecified; I48.1 Persistent atrial fibrillation; J44.0 Chronic obstructive pulmonary disease with (acute) lower respiratory infection; J45.41 Moderate persistent asthma with (acute) exacerbation; I13.0 Hypertensive heart and chronic kidney disease with heart failure and stage 1 through stage 4 chronic kidney disease, or unspecified chronic kidney disease; C25.9 Malignant neoplasm of pancreas, unspecified; N18.1 Chronic kidney disease, stage 1; E86.0 Dehydration; E87.5 Hyperkalemia; R97.0 Elevated carcinoembryonic antigen [CEA]; D63.0 Anemia in neoplastic disease; D63.1 Anemia in chronic kidney disease; D50.9 Iron deficiency anemia, unspecified; E11.22 Type 2 diabetes mellitus with diabetic chronic kidney disease; E11.65 Type 2 diabetes mellitus with hyperglycemia; F01.50 Vascular dementia, unspecified severity, without behavioral disturbance, psychotic disturbance, mood disturbance, and anxiety; I25.10 Atherosclerotic heart disease of native coronary artery without angina pectoris; I50.9 Heart failure, unspecified; E78.5 Hyperlipidemia, unspecified; E78.00 Pure hypercholesterolemia, unspecified; K44.9 Diaphragmatic hernia without obstruction or gangrene; F41.1 Generalized anxiety disorder; I95.9 Hypotension, unspecified; K59.00 Constipation, unspecified; Y95 Nosocomial condition; Z66 Do not resuscitate; I25.2 Old myocardial infarction; Z79.4 Long term (current) use of insulin; Z87.01 Personal history of pneumonia (recurrent); Z87.891 Personal history of nicotine dependence

== ENCOUNTER 2018-08-21 14:18 | Inpatient (IN) | payer OTHER ==
[2018-08-21 15:18] VITALS: BMI 24.0
[2018-08-21] MEDS ORDERED: Sod Polystyrene Sulf 15 gm/60 ml Susp PR ONE (17:01)
[2018-08-21] MEDS ORDERED: Chlorhexidine Gluconate 1 APPL/PKT TP ONE (17:33)
[2018-08-21] MEDS ORDERED: MORPHINE IV SCH (18:45)
[2018-08-21] MEDS ORDERED: SODIUM CHLORIDE 0.9% IV SCH (18:45)
[2018-08-21] MEDS ORDERED: Morphine 100 MG in Sodium Chloride 0.9% 100 ML IV SCH (21:45)
[2018-08-22 12:32] VITALS: O2SAT 99
[2018-08-22 16:33] VITALS: RESP 17; TEMP 97.4
[2018-08-22 19:20] VITALS: BP 46/26; PULSE 106
--- NOTE | 2018-08-22 20:02 | CP.PCM.PRO ---
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 [id number] Additional Comments: This patient was under Hospice care
--- NOTE | 2018-08-22 23:35 | CP.PCM.HP ---
History of Present Illness - History of Present Illness History of Present Illness: 88 yo admitted to hospice Long discussion with family Present on Admission - Present on Admission Any Indicators Present on Admission: No Past Patient History - Past Medical History & Family History Past Medical History?: Yes - Past Social History Smoking Status: Never Smoked - CARDIAC Hx Atrial Fibrillation: No Hx Cardia Arrhythmia: No Hx Congestive Heart Failure: Yes Hx Hypercholesterolemia: Yes Hx Hypertension: Yes Hx Mitral Valve Prolapse: No Hx Pacemaker: No Hx Peripheral Edema: No - PULMONARY Hx Asthma: Yes Hx Bronchitis: Yes Hx Chronic Obstructive Pulmonary Disease (COPD): Yes Hx Emphysema: No Hx Pneumonia: Yes Hx Pulmonary Embolism: No Hx Sleep Apnea: No - NEUROLOGICAL Hx Alzheimer's Disease: No Hx Dementia: No Hx Migraine: No Hx Multiple Sclerosis: No Hx Parkinson's Disease: No Hx Seizures: No Hx Transient Ischemic Attacks (TIA): No - HEENT Hx HEENT Problems: No - RENAL Hx Chronic Kidney Disease: No Hx Kidney Stones: No - ENDOCRINE/METABOLIC Hx Hyperthyroidism: No Hx Hypothyroidism: No - HEMATOLOGICAL/ONCOLOGICAL Hx AIDS: No Hx Anemia: No Hx Human Immunodeficiency Virus (HIV): No Hx Sickle Cell Disease: No - INTEGUMENTARY Hx Dermatological Problems: No - MUSCULOSKELETAL/RHEUMATOLOGICAL Hx Arthritis: No Hx Falls: Yes Hx Fractures: Yes Hx Osteoporosis: No Hx Rheumatoid Arthritis: No - GASTROINTESTINAL Hx Crohn's Disease: No Hx Diverticulitis: No Hx Gall Bladder Disease: No Hx Gastritis: No Hx Pancreatitis: No - GENITOURINARY/GYNECOLOGICAL Hx Sexually Transmitted Disorders: No - PSYCHIATRIC Hx Anxiety: Yes Hx Bipolar Disorder: No Hx Depression: Yes Hx Paranoia: Yes Hx Post Traumatic Stress Disorder: No Hx Schizophrenia: No Hx Substance Use: No - SURGICAL HISTORY Hx Appendectomy: No Hx Carotid Endarterectomy: No Hx Cholecystectomy: No Hx Coronary Artery Bypass Graft: No Hx Coronary Stent: No Hx Tonsillectomy: No Other/Comment: Hemorrhoidectomy - ANESTHESIA Hx Anesthesia: Yes Hx Anesthesia Reactions: No Hx Malignant Hyperthermia: No Meds Allergies/Adverse Reactions: Allergies Allergy/AdvReac Type Severity Reaction Status Date / Time No Known Allergies Allergy Verified 06/16/18 14:16 Results - Vital Signs Recent Vital Signs: Last Vital Signs Temp 97.4 F L 08/22/18 16:32 Pulse 106 H 08/22/18 19:19 Resp 17 08/22/18 16:32 BP 46/26 L 08/22/18 19:19 Pulse Ox 99 08/22/18 12:31 Assessment & Plan - Assessment and Plan (Free Text) Assessment: ADR DNR DNI long d/w [facility] Hospice Meds ordered Morphine and Ativan Metastatic liver dx elevated CEA Ca 19-9 Ag - Date & Time Date: 08/22/18 Time: 22:22
== END 2018-08-22 19:35 | DRG 437 ==
LOC: H.TEL 14:18
PROVIDERS: ADMIT Family Medicine Geriatric Medicine; ATTEND Family Medicine Geriatric Medicine
DX: C78.7 Secondary malignant neoplasm of liver and intrahepatic bile duct (principal); E78.00 Pure hypercholesterolemia, unspecified; F22 Delusional disorders; I11.0 Hypertensive heart disease with heart failure; I50.9 Heart failure, unspecified; J44.9 Chronic obstructive pulmonary disease, unspecified; Z51.5 Encounter for palliative care; Z66 Do not resuscitate; Z87.01 Personal history of pneumonia (recurrent); F32.9 Major depressive disorder, single episode, unspecified; F41.9 Anxiety disorder, unspecified; R97.0 Elevated carcinoembryonic antigen [CEA]